=== PATIENT | male | born 1960 | race Caucasian/White ===

== ENCOUNTER 2016-11-01 08:28 | Emergency (ER) | payer MEDICARE, MEDICAID ==
[~2016-11-01 08:28] MED LIST: /MOM400 PO; AMIT25TA PO; ANEX7.5T PO; ASPI81TA85 PO; ATEN50TA2 PO; BACL-67 PO; BACL10TA2 PO; BISAC5TA PO; CELE20TA PO; CITA20TA4 PO; COLA100C PO; DOCU10ELUD PO; DULC10SU9 PR; FLOM5CAP PO; HYDROCODONE PO; LOSA100T36 PO; LOSA50TA20 PO; METH-29 OR; NITR0.4D6 TD; PERC5TAB6 PO; TYLE325T5 PO; VITA10002 PO
[2016-11-01] MEDS ORDERED: KETOROLAC 30 MG/ML VIAL (J1885) As Ordered ONE (09:13)
[2016-11-01 09:31] LABS: BASO % 0.2 % (0.0-1.0); EOS # 0.1 K/mm3 (0.0-0.50); EOS % 1.8 % (0.0-3.0); LARGE UNSTAINED CELL # 0.1 K/mm3 (0.0-0.4); LARGE UNSTAINED CELL % 1.1 % (0.0-4.0); LYMPH # 1.4 K/mm3 (1.5-4.5); LYMPH % 22.2 % (24.0-44.0); MEAN CORPUSCULAR HEMOGLOBIN 33.4 pg (27.0-33.0); MEAN CORPUSCULAR HGB CONC 34.8 g/dl (32.0-36.5); MEAN CORPUSCULAR VOLUME 95.8 fl (80.0-96.0); MONO # 0.3 K/mm3 (0.0-0.8); MONO % 5.4 % (0.0-5.0); NEUTROPHILS # 4.3 K/mm3 (1.8-7.7); NEUTROPHILS % 69.2 % (36.0-66.0); PLATELET COUNT, AUTOMATED 240 k/mm3 (150-450); RED CELL DISTRIBUTION WIDTH 11.9 % (11.5-14.5); WHITE BLOOD COUNT 6.2 K/mm3 (4.0-10.0)
[2016-11-01 09:41] LABS: ALBUMIN 3.7 GM/DL (3.2-5.2); ALBUMIN/GLOBULIN RATIO 1.03 (1.00-1.93); ALKALINE PHOSPHATASE 80 U/L (45-117); ALT/SGPT 45 U/L (12-78); ANION GAP 11 MEQ/L (8-16); AST/SGOT 52 U/L (15-37); BILIRUBIN,DIRECT 0.3 MG/DL (0.0-0.2); BLOOD UREA NITROGEN 9 MG/DL (7-18); CALCIUM LEVEL 8.4 MG/DL (8.5-10.1); CARBON DIOXIDE LEVEL 25 MEQ/L (21-32); CHLORIDE LEVEL 102 MEQ/L (98-107); CREATININE FOR GFR 0.93 MG/DL (0.70-1.30); GLOMERULAR FILTRATION RATE > 60.0 (>56); GLUCOSE, FASTING 116 MG/DL (70-105); POTASSIUM SERUM 3.8 MEQ/L (3.5-5.1); SODIUM LEVEL 138 MEQ/L (136-145); TOTAL PROTEIN 7.3 GM/DL (6.4-8.2)
--- NOTE | 2016-11-01 09:51 | REP ---
ACUTE ABDOMINAL SERIES: 11/01/2016. Comparison CT abdomen and pelvis 12/13/2015, chest x-ray 05/11/2015, 04/21/2015. Clinical history: Abdominal pain. PA chest. Lungs are well inflated. There is no infiltrate, effusion, atelectasis or mass. Heart, mediastinal and hilar contours are normal. Airway intact. There are minor degenerative changes in the shoulders and spine. Flat upright abdomen. There are right upper quadrant clips from prior cholecystectomy. The gas pattern is nonspecific with scattered gas in small bowel loops without dilatation or air-fluid levels. Stool and gas scattered in the colon without distension. There are degenerative changes in the lumbar spine proximally and distally without destructive lesions. Pelvic phleboliths are noted without definite stones over the renal fossae or expected course of the ureters. There are degenerative changes in the hips. Impression: 1. Nonspecific gas pattern without obstruction, mass, free air or abnormal calcifications over the renal fossae. 2. Right upper quadrant clips from prior cholecystectomy, degenerative changes in the spine and hips and a negative PA chest. Signed by Chi Rai MD 11/01/2016 10:03 A
[2016-11-01] MEDS ORDERED: GASTROGRAFIN SOLUTION 30ML (Q9963) As Ordered ONE (10:34)
[2016-11-01] MEDS ORDERED: ISOVUE-370 76% 100ML VIAL (Q9967) As Ordered ONE (11:17)
--- NOTE | 2016-11-01 13:34 | REP ---
CT ABDOMEN AND PELVIS WITH IV AND ORAL CONTRAST, 11/01/2016: INDICATION: Possible diverticulitis. Comparison made with CT abdomen and pelvis 12/13/2015 performed at [facility]. TECHNIQUE: After drinking two cups of oral contrast each containing 10 mL Gastrografin in 290 mL water, 100 mL Isovue 370 mg per/mL was subsequently injected intravenously. FINDINGS: Small amount of atelectasis and/or scarring present in lung bases bilaterally. There is mild diffuse fatty infiltration of liver. Spleen and pancreas are unremarkable. There has been a prior cholecystectomy. The stomach is unremarkable. In the region of the duodenal C loop and/or duodenal bulb there is mild mural thickening and stranding in the adjacent mesentery, to the right of midline and inferior to the gallbladder fossa. There has been prior cholecystectomy. The small bowel is without obstruction. The terminal ileum is normal. The appendix is surgically absent. Segmental area of narrowing is present within the mid to distal ascending colon of 5.8 cm in length. There is also residual polypoid fecal material seen just proximal to this area of narrowing in the ascending colon. These findings are worrisome for a fixed lesion. Mild narrowing within the splenic flexure is most compatible with under distension/spasm. Adrenal glands are normal. Kidneys are without hydronephrosis bilaterally. Abdominal aorta is of normal course and caliber. There are a few small nonspecific retroperitoneal nodes. There are a few small nonspecific robbi hepatis nodes, all stable. Bladder is normal. Prostate is not enlarged. There is no free air or ascites. IMPRESSION: 1. Mural thickening and mesenteric inflammation in the region of the duodenal C loop and inferior to the gallbladder fossa. Differential diagnosis includes duodenitis, interval scarring when compared with prior study. 2. Concern for area of fixed narrowing within the mid to distal ascending colon of 5.8 cm length. Also there does appear to be inspissated fecal material proximal to this area of narrowing also raising concern for fixed lesion. Recommend colonoscopy. 3. Mild diffuse fatty infiltration of liver. Case discussed with Dr. Sommers in ED on 11/01/16 at 1 pm. [facility]
--- NOTE | 2016-11-01 15:20 | EDDOCDS ---
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 Aspirin was not taken prior to arrival. Adult Sepsis Screening: The patient does not have new or worsening altered mentation. Patient's respiratory rate is less than 22. Systolic blood pressure is greater than 100. Patient has a qSOFA score of 0- Negative Sepsis Screen. Suicide/Homicide risk assessment- the patient denies having any suicidal and/or homicidal ideations and does not present with any other emotional, behavioral or mental health complaints. 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 Transition of care: patient was not received from another setting of care. 08:34 Method Of Arrival: Walkin/Carried/Asstd mlb1 08:34 Acuity: TAPAN Level 2 mlb1 Triage Assessment: 08:42 General: Appears in no apparent distress, Behavior is appropriate for age, cooperative. mlb1 Pain: Location: right breast and left breast Pain currently is 7 out of 10 on a pain scale. Pt Declines HIV testing. 15:19 Cardiovascular: Chest pain is described as mild, radiates Does not radiate. episodes bcj are intermittent began 1 hour prior to arrival. Historical: - Allergies: no known allergies; - Home Meds: 1. losartan 50 mg oral tab 1 tab once daily (Last dose: 11/01/2016 06:00) 2. atenolol 50 mg Oral tab once daily (Last dose: 11/01/2016 06:00) 3. baclofen 20 mg Oral tab daily (Last dose: 10/31/2016 11:00) 4. Citalopram 30 mg Oral once daily (Last dose: 11/01/2016 06:00) 5. 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 - Social history: Smoking status: Patient states was never smoker of tobacco. No barriers to communication noted, The patient speaks fluent Sami, Speaks appropriately for age. - Family history: Not pertinent. - : The pt / caregiver states he / she is not on anticoagulants. Home medication list is obtained from the patient. - Hospitalizations: : No recent hospitalization is reported. - Exposure Risk Screening:: None identified. - Immunization history:: All immunizations up-to-date. - Social history:: the patient smokes cigarettes the patient drinks alcohol. Screenin:48 Screening information is obtained from the patient. Fall risk: No risks identified. ck1 Assistance ADL's: requires no assistance with activities of daily living. Abuse/DV Screen: The patient / caregiver reports he/she is: not in a situation that causes fear, pain or injury. Nutritional screening: No deficits noted. Advance Directives: Currently, there is a health care proxy, Yoon Brenner (). home support is adequate. Assessment: 08:48 General: Appears in no apparent distress, comfortable, Behavior is appropriate for age, ck1 cooperative. Pain: Location: chest Pain currently is 7 out of 10 on a pain scale. back. Neurological: Level of Consciousness is awake, alert, obeys commands, Oriented to person, place, time. Cardiovascular: Rhythm is sinus rhythm. Respiratory: Respiratory effort is unlabored, Respiratory pattern is regular, symmetrical, Reports shortness of breath. GI: Reports nausea. Derm: Skin is intact, is healthy with good turgor, Skin is pink, warm & dry. 09:45 General: Appears in no apparent distress, comfortable, Behavior is appropriate for age, ck1 cooperative. Pain: Location: chest Pain currently is 6 out of 10 on a pain scale. Neurological: Level of Consciousness is awake, alert, obeys commands, Oriented to person, place, time. Cardiovascular: Rhythm is sinus rhythm. Respiratory: Respiratory effort is unlabored, Respiratory pattern is regular, symmetrical. GI: No deficits noted. Derm: Skin is pink, warm & dry. 10:41 General: Patient is resting quietly on stretcher. Reports pain in upper abdomen and ck1 chest remain unchanged, 6/10. No acute distress noted at this time. Gastrografin provided per orders. Call light in reach, will continue to monitor patient. 11:00 General: report received from JENIFFER Niño to continue care. Pt resting on stretcher. NAD ttb noted. Awaiting CT.. 11:10 General: Appears in no apparent distress, comfortable, well nourished, well groomed, ttb Behavior is appropriate for age, cooperative, pleasant. Pain: Location: upper abd. 7/10 tender. Neurological: Level of Consciousness is awake, alert, Oriented to person, place, time, Speech is normal, left sided paralysis/weakness from previous injury. Cardiovascular: Heart tones S1 S2 present Rhythm is sinus rhythm No ectopy. Chest pain is denied. Respiratory: Airway is patent Respiratory effort is even, unlabored, Respiratory pattern is regular, symmetrical, Breath sounds are clear bilaterally. Reports shortness of breath for "a couple days" none now. Denies cough. GI: Bowel sounds present X 4 quads. Reports upper abdominal pain, nausea, Denies constipation, diarrhea, vomiting. Derm: Skin is normal. 12:00 Reassessment: Patient appears in no apparent distress at this time. pt taken to CT. NAD ttb noted. . 12:41 Reassessment: Patient appears in no apparent distress at this time. General: Appears in ttb no apparent distress, comfortable. Neurological: Level of Consciousness is awake, alert. Respiratory: Airway is patent Respiratory effort is even, unlabored. 13:30 Reassessment: Patient appears in no apparent distress at this time. pt continues to ttb rest on stretcher. at bedside. NAD noted. . 13:30 Cardiovascular: Chest pain is denied. Respiratory: Airway is patent Denies cough, ttb shortness of breath. 14:45 General: Appears in no apparent distress, comfortable, Behavior is pleasant, quiet, ttb in to speak with pt regarding imaging. IV started and labs sent. 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 Musculoskeletal: P+. Vital Signs: 08:43 Pulse 68; Resp 16; Pulse Ox 99% on R/A; Weight 87.09 kg (R); Height 5 ft. 10 in. mlb1 (177.80 cm) (R); Pain 7/10; 08:44 BP 193 / 103; Temp 96.6(TE); mlb1 08:44 BP 182 / 92 (auto/); ck1 08:44 Pulse 68 MON; Pulse Ox 99% ; ck1 08:59 BP 182 / 100 (auto/); ck1 08:59 Pulse 62 MON; Pulse Ox 96% ; ck1 09:14 BP 158 / 91 (auto/); ck1 09:14 Pulse 60 MON; Pulse Ox 96% ; ck1 10:07 Pain 6/10; ck1 10:10 BP 148 / 80 (auto/); ck1 10:10 Pulse 56 MON; Pulse Ox 98% ; ck1 11:08 Pulse 60 MON; Resp 18 S; Pulse Ox 100% on R/A; Pain 7/10; ttb 14:32 Temp 97.1; jlf 08:43 Body Mass Index 27.55 (87.09 kg, 177.80 cm) mlb1 Vitals: 15:19 Log In Time N/A - ambulance arrival. [facility] ED Course: 08:29 Patient visited by Sima Monterroso. mm15 08:29 Aashish Jane is Private Physician. mm15 08:29 Patient moved to Waiting mm15 08:34 Renay De Jesus,RN is Primary Nurse. mlb1 08:34 Patient visited by Pj Roy, JENIFFER. mlb1 08:34 Patient moved to 5 mlb1 08:35 Triage Initiated mlb1 08:46 EKG done. (by ED staff). Reviewed by Santo Sommers MD. jlf 08:47 Patient visited by Ericka Bhatia. nb2 08:47 Placed in gown. Bed in low position. Call light in reach. Side rails up X2. Cardiac nb2 monitor on. Pulse ox on. NIBP on. 08:48 Patient visited by Kristel Zarate PCA. jlf 08:48 The patient / caregiver is instructed regarding the plan of care and ED course. ck1 08:48 Inserted saline lock: 20 gauge in right antecubital area and blood collected. The ck1 patient tolerated the procedure well. 08:49 Patient visited by Kristel Zarate PCA. jlf 08:53 Santo Sommers MD is Attending Physician. pc 09:04 Patient visited by Santo Sommers MD. pc 09:12 CBC with Diff Sent. ck1 09:12 MED Profile Sent. ck1 09:12 Troponin Sent. ck1 09:12 CIP Sent. ck1 09:13 Lipase Sent. ck1 09:13 Liver Profile Sent. ck1 09:15 Patient visited by Renay De Jesus RN. ck1 09:46 Patient visited by Renay De Jesus RN. ck1 09:56 Abdomen, Flat\\E\\Upright,PA Chest Returned. EDMS 10:07 Patient visited by Renay De Jesus RN. ck1 10:19 [facility] Payment Agreement was scanned into [employer] and attached to record. mpb 10:40 Patient visited by Renay De Jesus RN. ck1 10:44 Abdomen, Flat\\E\\Upright,PA Chest Returned. EDMS 11:06 Patient visited by Bette Montes RN. ttb 11:39 Primary Nurse role handed off by Renay De Jesus RN ttb 11:39 Bette Montes RN is Primary Nurse. ttb 11:39 Patient visited by Bette Montes RN. ttb 12:15 Patient visited by Kristel Zarate PCA. jlf 12:40 Patient visited by Bette Montes RN. ttb 13:07 Patient visited by Kristel Zarate PCA. jlf 13:38 Patient visited by Kristel Zarate PCA. jlf 14:06 Patient visited by Kristel Zarate PCA. jlf 14:06 CT ABD & PELVIS: IV and Oral Contrast Returned. EDMS 14:32 Patient visited by Kristel Zarate PCA. jlf 14:48 Krunal Greene is Referral Physician. pc 14:48 Jt Daugherty MD is Referral Physician. pc 15:00 Patient moved to Family 1 mcp 15:07 Patient visited by Bette Montes RN. ttb 15:18 No procedures done that require assistance. bcj 15:19 Patient visited by Yasir Dodge RN. bcj Administered Medications: 09:16 Drug: ketorolac 30 mg [ketorolac 30 mg/mL (1 mL) injection solution (1 mL)] Route: IVP; ck1 Site: right antecubital; 10:07 Follow up: Pain 6/10 Adult; Response: No Adverse Reaction; No significant change. ck1 10:41 Drug: Diatrizoate Meglumine & Sodium 10 ml [diatrizoate meglumine and diat.sodium 66 ck1 %-10 % oral solution (10 mL)] Route: PO; 11:13 Drug: Diatrizoate Meglumine & Sodium 10 ml [diatrizoate meglumine and diat.sodium 66 ttb %-10 % oral solution (10 mL)] Route: PO; Order Results: Lab Order: CBC with Diff; SPEC'M 11/01/16 08:47 Test: WHITE BLOOD COUNT; Value: 6.2; Range: 4.0-10.0; Units: K/mm3; Status: F Test: RED BLOOD COUNT; Value: 4.35; Range: 4.30-6.10; Units: M/mm3; Status: F Test: HEMOGLOBIN; Value: 14.5; Range: 14.0-18.0; Units: g/dl; Status: F Test: HEMATOCRIT; Value: 41.7; Range: 42.0-52.0; Abnormal: Below low normal; Units: %; Status: F Test: MEAN CORPUSCULAR VOLUME; Value: 95.8; Range: 80.0-96.0; Units: fl; Status: F Test: MEAN CORPUSCULAR HEMOGLOBIN; Value: 33.4; Range: 27.0-33.0; Abnormal: Above high normal; Units: pg; Status: F Test: MEAN CORPUSCULAR HGB CONC; Value: 34.8; Range: 32.0-36.5; Units: g/dl; Status: F Test: RED CELL DISTRIBUTION WIDTH; Value: 11.9; Range: 11.5-14.5; Units: %; Status: F Test: PLATELET COUNT, AUTOMATED; Value: 240; Range: 150-450; Units: k/mm3; Status: F Test: NEUTROPHILS %; Value: 69.2; Range: 36.0-66.0; Abnormal: Above high normal; Units: %; Status: F Test: LYMPH %; Value: 22.2; Range: 24.0-44.0; Abnormal: Below low normal; Units: %; Status: F Test: MONO %; Value: 5.4; Range: 0.0-5.0; Abnormal: Above high normal; Units: %; Status: F Test: EOS %; Value: 1.8; Range: 0.0-3.0; Units: %; Status: F Test: BASO %; Value: 0.2; Range: 0.0-1.0; Units: %; Status: F Test: LARGE UNSTAINED CELL %; Value: 1.1; Range: 0.0-4.0; Units: %; Status: F Test: NEUTROPHILS #; Value: 4.3; Range: 1.8-7.7; Units: K/mm3; Status: F Test: LYMPH #; Value: 1.4; Range: 1.5-4.5; Abnormal: Below low normal; Units: K/mm3; Status: F Test: MONO #; Value: 0.3; Range: 0.0-0.8; Units: K/mm3; Status: F Test: EOS #; Value: 0.1; Range: 0.0-0.50; Units: K/mm3; Status: F Test: BASO #; Value: 0.0; Range: 0.0-0.2; Units: K/mm3; Status: F Test: LARGE UNSTAINED CELL #; Value: 0.1; Range: 0.0-0.4; Units: K/mm3; Status: F Lab Order: [facility] Profile; SPEC'M 11/01/16 08:47 Test: GLUCOSE, FASTING; Value: 116; Range: 70-105; Abnormal: Above high normal; Units: MG/DL; Status: F Test: BLOOD UREA NITROGEN; Value: 9; Range: 7-18; Units: MG/DL; Status: F Test: CREATININE FOR GFR; Value: 0.93; Range: 0.70-1.30; Units: MG/DL; Status: F Test: GLOMERULAR FILTRATION RATE; Value: > 60.0; Range: >56; Status: F Test: SODIUM LEVEL; Value: 138; Range: 136-145; Units: MEQ/L; Status: F Test: POTASSIUM SERUM; Value: 3.8; Range: 3.5-5.1; Units: MEQ/L; Status: F Test: CHLORIDE LEVEL; Value: 102; Range: 98-107; Units: MEQ/L; Status: F Test: CARBON DIOXIDE LEVEL; Value: 25; Range: 21-32; Units: MEQ/L; Status: F Test: ANION GAP; Value: 11; Range: 8-16; Units: MEQ/L; Status: F Test: CALCIUM LEVEL; Value: 8.4; Range: 8.5-10.1; Abnormal: Below low normal; Units: MG/DL; Status: F Test Note: ; Units are mL/min/1.73 m2 Chronic Kidney Disease Staging per NKF: Stage I & II GFR >=60 Normal to Mildly Decreased Stage III GFR 30-59 Moderately Decreased Stage IV GFR 15-29 Severely Decreased Stage V GFR <15 Very Little GFR Left ESRD GFR <15 on [employer] Lab Order: Liver Profile; 11/01/16 08:47 Test: AST/SGOT; Value: 52; Range: 15-37; Abnormal: Above high normal; Units: U/L; Status: F Test: ALT/SGPT; Value: 45; Range: 12-78; Units: U/L; Status: F Test: ALKALINE PHOSPHATASE; Value: 80; Range: 45-117; Units: U/L; Status: F Test: BILIRUBIN,TOTAL; Value: 2.0; Range: 0.2-1.0; Abnormal: Above high normal; Units: MG/DL; Status: F Test: BILIRUBIN,DIRECT; Value: 0.3; Range: 0.0-0.2; Abnormal: Above high normal; Units: MG/DL; Status: F Test: TOTAL PROTEIN; Value: 7.3; Range: 6.4-8.2; Units: GM/DL; Status: F Test: ALBUMIN; Value: 3.7; Range: 3.2-5.2; Units: GM/DL; Status: F Test: ALBUMIN/GLOBULIN RATIO; Value: 1.03; Range: 1.00-1.93; Status: F Lab Order: Lipase; 11/01/16 08:47 Test: LIPASE; Value: 454; Range: 73-393; Abnormal: Above high normal; Units: U/L; Status: F Lab Order: CIP; 11/01/16 08:47 Test: CPK CREATINE PHOSPHOKINASE; Value: 139; Range: 39-308; Units: U/L; Status: F Test: CK-MB VALUE MASS; Value: 2.3; Range: 0.0-3.6; Units: NG/ML; Status: F Test: MB/CK RELATIVE INDEX; Value: 1.65; Range: < OR =4; Status: F Test Note: ; DIAGNOSIS CRITERIA MMB ng/ml Relative Index (RI) NON-AMI < or = 5 N/A [place]ONE > 5 < or = 4 AMI > 5 > 4 Lab Order: Troponin; SPEC'M 11/01/16 08:47 Test: TROPONIN I; Value: < 0.02; Range: < 0.10; Units: NG/ML; Status: F Test Note: ; Troponin I Reference Interval for [place] LOCI: 99th Percentile= 0.00-0.045 ng/ml Risk Stratification: <= 0.10 ng/ml Decreased Risk for Adverse Clinical Events. 0.10-1.50 ng/ml Increased Risk for Adverse Clinical Events. Evaluation of additional criterion and/or repeat testing in 2-6 hours is suggested to rule out myocardial damage. >= 1.50 ng/ml Indicative of Myocardial Injury. Radiology Order: Abdomen, Flat\\E\\Upright,PA Chest Test: Abdomen, Flat\\E\\Upright,PA Chest REASON FOR EXAMINATION: Abdomen Pain; ACUTE ABDOMINAL SERIES: 11/01/2016.; ; Comparison CT abdomen and pelvis 12/13/2015, chest x-ray 05/11/2015, 04/21/2015.; ; Clinical history: Abdominal pain.; ; PA chest. Lungs are well inflated. There is no infiltrate, effusion,; atelectasis or mass. Heart, mediastinal and hilar contours are normal. Airway; intact. There are minor degenerative changes in the shoulders and spine.; ; Flat upright abdomen. There are right upper quadrant clips from prior; cholecystectomy. The gas pattern is nonspecific with scattered gas in small; bowel loops without dilatation or air-fluid levels. Stool and gas scattered in; the colon without distension. There are degenerative changes in the lumbar spine; proximally and distally without destructive lesions. Pelvic phleboliths are; noted without definite stones over the renal fossae or expected course of the; ureters. There are degenerative changes in the hips.; ; Impression:; ; 1. Nonspecific gas pattern without obstruction, mass, free air or abnormal; calcifications over the renal fossae.; ; 2. Right upper quadrant clips from prior cholecystectomy, degenerative changes; in the spine and hips and a negative PA chest.; ; ; Signed by; Chi Rai MD 11/01/2016 10:03 A; Radiology Order: CT ABD & PELVIS: IV and Oral Contrast Test: CT ABD & PELVIS: IV and Oral Contrast REASON FOR EXAMINATION: Diverticulitis; ; CT ABDOMEN AND PELVIS WITH IV AND ORAL CONTRAST, 11/01/2016:; ; INDICATION: Possible diverticulitis.; ; Comparison made with CT abdomen and pelvis 12/13/2015 performed at [facility].; ; TECHNIQUE: After drinking two cups of oral contrast each containing 10 mL; Gastrografin in 290 mL water, 100 mL Isovue 370 mg per/mL was subsequently; injected intravenously.; ; FINDINGS:; Small amount of atelectasis and/or scarring present in lung bases bilaterally.; ; There is mild diffuse fatty infiltration of liver. Spleen and pancreas are; unremarkable. There has been a prior cholecystectomy. The stomach is; unremarkable. In the region of the duodenal C loop and/or duodenal bulb there is; mild mural thickening and stranding in the adjacent mesentery, to the right of; midline and inferior to the gallbladder fossa. There has been prior; cholecystectomy. The small bowel is without obstruction. The terminal ileum is; normal. The appendix is surgically absent. Segmental area of narrowing is; present within the mid to distal ascending colon of 5.8 cm in length. There is; also residual polypoid fecal material seen just proximal to this area of; narrowing in the ascending colon. These findings are worrisome for a fixed; lesion. Mild narrowing within the splenic flexure is most compatible with under; distension/spasm. Adrenal glands are normal. Kidneys are without hydronephrosis; bilaterally. Abdominal aorta is of normal course and caliber. There are a few; small nonspecific retroperitoneal nodes. There are a few small nonspecific robbi; hepatis nodes, all stable.; ; Bladder is normal. Prostate is not enlarged. There is no free air or ascites.; ; ; IMPRESSION:; 1. Mural thickening and mesenteric inflammation in the region of the duodenal C; loop and inferior to the gallbladder fossa. Differential diagnosis includes; duodenitis, interval scarring when compared with prior study.; 2. Concern for area of fixed narrowing within the mid to distal ascending colon; of 5.8 cm diameter. Also there does appear to be inspissated fecal material; proximal to this area of narrowing also raising concern for fixed lesion.; 3. Mild diffuse fatty infiltration of liver.; ; ; ; Unreviewed; Outcome: 14:48 Discharge ordered by Provider. pc 15:18 Discharge Assessment: patient administered narcotics -. bcj 15:18 Discharge Assessment: patient administered narcotics - no. The following High Risk [facility] Discharge criteria are identified: None. Discharged to home ambulatory. Condition: stable. Discharge instructions given to patient, Instructed on discharge instructions, follow up and referral plans. medication usage, Prescriptions given X 1. No special radiology studies were completed. Property :Personal belongings accompany Pt. 15:19 Patient left the ED. [facility] Signatures: Dispatcher [employer] EDMS Santo Sommers MD MD pc Johnson, Bruce RN RN Estela Victor RN RN mcp Barney, Michael B, RN RN [facility] Renay De Jesus RN RN ck1 Bette Montes RN RN ttSima Mcmahon mm15 Kristel Zarate, DARLYN CUSTODIAL SUPERVISOR yamelf Pj Parr, Sung Reg mpb Ericka Bhatia2 Corrections: (The following items were deleted from the chart) 08:43 08:34 Presenting complaint: Patient states: Upper abdominal pain, muscle cramps in arms mlb1 and legs "haven't fell right" began two days ago [facility] 08:43 08:34 Acuity: TAPAN Level 3 [place] [id number] : 08:41 Home Meds: losartan 50 mg oral tab 1 tab once daily; [facility] ck1 09: 08:41 Home Meds: atenolol 50 mg oral tab once daily; [facility] ck1 : 08:41 Home Meds: baclofen 20 mg Oral tab daily; [facility] ck1 : 08:41 Home Meds: Citalopram 30 mg Oral once daily; [facility] ck1 : 08:41 Home Meds: amitriptyline 50 mg Oral tab 1 tab once daily; [facility] ck 09:20 08:41 PSHx: ACDFI; [address] MTDD
--- NOTE | 2016-11-01 15:20 | EDDOCDS ---
Physician Documentation [facility] Name: Joao Brenner Age: 56 yrs Sex: Male : 1960 Arrival Date: 11/01/2016 Time: 08:28 Bed Family 1 Private MD: Aashish Jane Disposition: 11/01 14:19 Critical Care: Critical care not applicable. pc Disposition: 11/01/16 14:48 Discharged to Home/Self Care. 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 - Condition is Stable. - Discharge Instructions: Colon Mass, Adult, Duodenitis. - Prescriptions for Protonix 40 mg Oral Tablet - take 1 tablet by ORAL route once daily; 30 tablet. Miralax 17 gram/dose - take 17 gram by ORAL route once daily As needed dilute in 8 ounces of water or juice; 1 bottle. - Medication Reconciliation, Local Pharmacy Hours form. - Follow up: Krunal Greene; When: Call to arrange an appointment; Reason: Further diagnostic work-up, Continuance of care. Follow up: Jt Daugherty MD; When: Call to arrange an appointment; Reason: To establish care. - Problem is new. - Symptoms have improved. HPI: 09:13 This 56 yrs old Male presents to ER via Walkin/Carried/Asstd with complaints pc of Abdominal Pain. 09:13 The history is obtained from the patient. The patient presents with abdominal pain, in pc the upper abdomen. The symptoms began gradually 8 days ago, and became worse 2 days ago. Symptoms are ongoing and are constant. 09:15 At its worst, the symptoms were a 7 out of 10. In the emergency department, the pc symptoms are a 7 out of 10. The pain is described as aching. The is primarily located right upper quadrant and left upper quadrant. It radiates to the lumbar area. The pain was associated with nausea. The symptoms are aggravated by nothing. are alleviated by nothing. Risk factors for AAA: hypertension, smoking, Risk factors for CAD: family history of CAD, history of high cholesterol, history of hypertension, smoking. The patient has experienced similar episodes in the past, several times. The patient has been recently seen by their primary care provider, for a routine, regularly scheduled appointment. He has chronic opiate-induced constipation. He has recurrent upper abdominal pain for which he is scheduled for a stress test in 3 weeks. Historical: - Allergies: no known allergies; - Home Meds: 1. losartan 50 mg oral tab 1 tab once daily (Last dose: 11/01/2016 06:00) 2. atenolol 50 mg Oral tab once daily (Last dose: 11/01/2016 06:00) 3. baclofen 20 mg Oral tab daily (Last dose: 10/31/2016 11:00) 4. Citalopram 30 mg Oral once daily (Last dose: 11/01/2016 06:00) 5. 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 - Social history: Smoking status: Patient states was never smoker of tobacco. No barriers to communication noted, The patient speaks fluent [place], Speaks appropriately for age. - Family history: Not pertinent. - : The pt / caregiver states he / she is not on anticoagulants. Home medication list is obtained from the patient. - Hospitalizations: : No recent hospitalization is reported. - Exposure Risk Screening:: None identified. - Immunization history:: All immunizations up-to-date. - Social history:: the patient smokes cigarettes the patient drinks alcohol. ROS: 09:20 All systems are negative except if listed. The constitutional, cardiovascular, pc respiratory and neurological components are also addressed in the HPI. Exam: 09:20 General Appearance: alert, no acute distress. pc 09:20 ENT: ear, nose and throat normal, pharynx normal. 09:20 Neck: The exam reveals no acute abnormalities. ROM is normal and painless. No nuchal rigidity is noted.. 09:20 Respiratory: no respiratory distress, normal breath sounds, chest non-tender. 09:20 Cardiovascular: regular pulse rate, regular heart rhythm, normal heart sounds, equal and full pulses bilaterally. 09:20 Abdomen: soft, mild tenderness in all quadrants, without rebound, voluntary guarding is elicited in all quadrants. 09:20 Back: normal inspection. 09:20 Skin: skin color is normal, warm, dry. 09:20 Extremities: The extremities have a grossly normal appearance. Vital Signs: 08:43 Pulse 68; Resp 16; Pulse Ox 99% on R/A; Weight 87.09 kg / 192 lbs (R); Height 5 ft. 10 mlb1 in. (177.80 cm) (R); Pain 7/10; 08:44 BP 193 / 103; Temp 96.6(TE); mlb1 08:44 BP 182 / 92 (auto/); ck1 08:44 Pulse 68 MON; Pulse Ox 99% ; ck1 08:59 BP 182 / 100 (auto/); ck1 08:59 Pulse 62 MON; Pulse Ox 96% ; ck1 09:14 BP 158 / 91 (auto/); ck1 09:14 Pulse 60 MON; Pulse Ox 96% ; ck1 10:07 Pain 6/10; ck1 10:10 BP 148 / 80 (auto/); ck1 10:10 Pulse 56 MON; Pulse Ox 98% ; ck1 11:08 Pulse 60 MON; Resp 18 S; Pulse Ox 100% on R/A; Pain 7/10; ttb 14:32 Temp 97.1; jlf 08:43 Body Mass Index 27.55 (87.09 kg, 177.80 cm) mlb1 MDM: 08:44 ECG WITH READING ER PHYS+CARDIAG ordered. EDMS 09:01 Data reviewed: The patient's [facility] records were accessed, reference # [id number]. pc 09:11 IV Saline Lock ordered. pc 09:11 ketorolac 30 mg IVP once ordered. pc 09:12 Abdomen, Flat\E\Upright,PA Chest Ordered. EDMS 09:12 CBC with Diff Ordered. EDMS 09:12 MED Profile Ordered. EDMS 09:12 Liver Profile Ordered. EDMS 09:12 Lipase Ordered. EDMS 09:12 CIP Ordered. EDMS 09:12 Troponin Ordered. EDMS 09:20 Differential diagnosis: AAA, acute coronary syndrome, cholecystitis, gastritis, pc non-specific abd pain, pancreatitis, perforated viscous. Plan: labs, EKG, imaging, analgesia. Test interpretation: EKG. 09:43 CBC with Diff Reviewed. pc 09:43 MED Profile Reviewed. pc 09:43 Lipase Reviewed. pc 09:43 Troponin Reviewed. pc 09:44 Liver Profile Reviewed. pc 09:59 MED Profile Reviewed. pc 09:59 Liver Profile Reviewed. pc 09:59 Lipase Reviewed. pc 09:59 CIP Reviewed. pc 09:59 Troponin Reviewed. pc 09:59 Abdomen, Flat\E\Upright,PA Chest Reviewed. pc 10:17 CT ABD & PELVIS: IV and Oral Contrast Ordered. EDMS 10:18 Financial registration complete. mpb 10:19 [facility] Payment Agreement was scanned into [employer] and attached to record. mpb 10:41 Diatrizoate Meglumine & Sodium Liquid 10 ml PO once; mix in 290cc of water. First at ck1 1045, second at 1115 ordered. 11:13 Diatrizoate Meglumine & Sodium Liquid 10 ml PO once; mix in 290cc of water ordered. ttb 14:14 Test interpretation: LAB - all labs as ordered have been reviewed, interpreted and pc considered in the overall management of the clinical presentation; X-RAY - interpreted by Radiologist and personally reviewed, 3-view abdomen series; no acute disease, interpreted by Radiologist and personally reviewed, discussed with Radiologist, Abdomen/Pelvis CT; duodenitis; 5.8cm narrowing in mid to distal ascending colon with fecal plug proximally, concerning for malignancy. 14:19 The patient has been re-examined and re-evaluated. The patient's symptoms have mildly pc improved after treatment. Physician consultation: Dr. Krunal Greene was contacted at 14:19, regarding patient's condition, and he advises discharge home on Miralax and he will arrange for him to be seen urgently for colonoscopy . Disposition: The historical points, examination findings, and any diagnostic results supporting the provided diagnosis, were discussed with the patient or legal guardian. The need for outpatient follow up with the provider listed on their discharge instructions was discussed. They were encouraged to return to [facility], or the nearest ED, if symptoms worsen/persist, or for any other questions/concerns. 14:46 Physician consultation: Dr. Jt Daugherty MD was contacted at 14:47, regarding pc patient's condition, and will see patient in office. EC:20 Rate is 64 beats/min. Rhythm is regular, Normal Sinus Rhythm. QRS [place] is Normal. [place] pc interval is normal. QRS interval is normal. QT interval is normal. Q waves are Old in lead III. T waves are Normal. ST Segment is elevated in leads I, aVL, V2, V3, V4, V5, V6, <1mm. Clinical impression: Normal Sinus Rhythm, ST-T changes consistent with early repolarization., and Inferior [place] - age indeterminate. No change from previous ECG in Feb, 2015. Administered Medications: 09:16 Drug: ketorolac 30 mg [ketorolac 30 mg/mL (1 mL) injection solution (1 mL)] Route: IVP; ck1 Site: right antecubital; 10:07 Follow up: Pain 03/24 Adult; Response: No Adverse Reaction; No significant change. ck1 10:41 Drug: Diatrizoate Meglumine & Sodium 10 ml [diatrizoate meglumine and diat.sodium 66 ck1 %-10 % oral solution (10 mL)] Route: PO; 11:13 Drug: Diatrizoate Meglumine & Sodium 10 ml [diatrizoate meglumine and diat.sodium 66 ttb %-10 % oral solution (10 mL)] Route: PO; Signatures: Dispatcher [employer] EDMS Santo Sommers MD MD pc Johnson, Bruce RN RN Pj Chatman RN RN [facility] Renay De Jesus RN RN ck1 Bette Montes RN RN ttb Pj Parr Reg Reg mpb The chart was reviewed and I authenticate all verbal orders and agree with the evaluation and treatment provided.Corrections: (The following items were deleted from the chart) : 08:41 Home Meds: losartan 50 mg oral tab 1 tab once daily; [facility] 08:41 Home Meds: atenolol 50 mg oral tab once daily; [facility] 08:41 Home Meds: baclofen 20 mg Oral tab daily; [facility] 08:41 Home Meds: Citalopram 30 mg Oral once daily; [facility] 08:41 Home Meds: amitriptyline 50 mg Oral tab 1 tab once daily; [facility] 08:41 PSHx: ACDFI; [address] Attachments: 10:19 [facility] Payment Agreement mpb MTDD
--- NOTE | 2016-11-02 08:21 | ECGEPIP ---
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
--- NOTE | 2016-11-03 16:20 | EDDOCDS ---
Physician Documentation [facility] Name: Joao Brenner Age: 56 yrs Sex: Male : 1960 Arrival Date: 11/01/2016 Time: 08:28 Bed Family 1 Private MD: Aashish Jane Disposition: 11/01 14:19 Critical Care: Critical care not applicable. pc Disposition: 11/01/16 14:48 Discharged to Home/Self Care. 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 - Condition is Stable. - Discharge Instructions: Colon Mass, Adult, Duodenitis. - Prescriptions for Protonix 40 mg Oral Tablet - take 1 tablet by ORAL route once daily; 30 tablet. Miralax 17 gram/dose - take 17 gram by ORAL route once daily As needed dilute in 8 ounces of water or juice; 1 bottle. - Medication Reconciliation, Local Pharmacy Hours form. - Follow up: Krunal Greene; When: Call to arrange an appointment; Reason: Further diagnostic work-up, Continuance of care. Follow up: Jt Daugherty MD; When: Call to arrange an appointment; Reason: To establish care. - Problem is new. - Symptoms have improved. HPI: 09:13 This 56 yrs old Male presents to ER via Walkin/Carried/Asstd with complaints pc of Abdominal Pain. 09:13 The history is obtained from the patient. The patient presents with abdominal pain, in pc the upper abdomen. The symptoms began gradually 8 days ago, and became worse 2 days ago. Symptoms are ongoing and are constant. 09:15 At its worst, the symptoms were a 7 out of 10. In the emergency department, the pc symptoms are a 7 out of 10. The pain is described as aching. The is primarily located right upper quadrant and left upper quadrant. It radiates to the lumbar area. The pain was associated with nausea. The symptoms are aggravated by nothing. are alleviated by nothing. Risk factors for AAA: hypertension, smoking, Risk factors for CAD: family history of CAD, history of high cholesterol, history of hypertension, smoking. The patient has experienced similar episodes in the past, several times. The patient has been recently seen by their primary care provider, for a routine, regularly scheduled appointment. He has chronic opiate-induced constipation. He has recurrent upper abdominal pain for which he is scheduled for a stress test in 3 weeks. Historical: - Allergies: no known allergies; - Home Meds: 1. losartan 50 mg oral tab 1 tab once daily (Last dose: 11/01/2016 06:00) 2. atenolol 50 mg Oral tab once daily (Last dose: 11/01/2016 06:00) 3. baclofen 20 mg Oral tab daily (Last dose: 10/31/2016 11:00) 4. Citalopram 30 mg Oral once daily (Last dose: 11/01/2016 06:00) 5. 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 - Social history: Smoking status: Patient states was never smoker of tobacco. No barriers to communication noted, The patient speaks fluent [place], Speaks appropriately for age. - Family history: Not pertinent. - : The pt / caregiver states he / she is not on anticoagulants. Home medication list is obtained from the patient. - Hospitalizations: : No recent hospitalization is reported. - Exposure Risk Screening:: None identified. - Immunization history:: All immunizations up-to-date. - Social history:: the patient smokes cigarettes the patient drinks alcohol. ROS: 09:20 All systems are negative except if listed. The constitutional, cardiovascular, pc respiratory and neurological components are also addressed in the HPI. Exam: 09:20 General Appearance: alert, no acute distress. pc 09:20 ENT: ear, nose and throat normal, pharynx normal. 09:20 Neck: The exam reveals no acute abnormalities. ROM is normal and painless. No nuchal rigidity is noted.. 09:20 Respiratory: no respiratory distress, normal breath sounds, chest non-tender. 09:20 Cardiovascular: regular pulse rate, regular heart rhythm, normal heart sounds, equal and full pulses bilaterally. 09:20 Abdomen: soft, mild tenderness in all quadrants, without rebound, voluntary guarding is elicited in all quadrants. 09:20 Back: normal inspection. 09:20 Skin: skin color is normal, warm, dry. 09:20 Extremities: The extremities have a grossly normal appearance. Vital Signs: 08:43 Pulse 68; Resp 16; Pulse Ox 99% on R/A; Weight 87.09 kg / 192 lbs (R); Height 5 ft. 10 mlb1 in. (177.80 cm) (R); Pain 7/10; 08:44 BP 193 / 103; Temp 96.6(TE); mlb1 08:44 BP 182 / 92 (auto/); ck1 08:44 Pulse 68 MON; Pulse Ox 99% ; ck1 08:59 BP 182 / 100 (auto/); ck1 08:59 Pulse 62 MON; Pulse Ox 96% ; ck1 09:14 BP 158 / 91 (auto/); ck1 09:14 Pulse 60 MON; Pulse Ox 96% ; ck1 10:07 Pain 6/10; ck1 10:10 BP 148 / 80 (auto/); ck1 10:10 Pulse 56 MON; Pulse Ox 98% ; ck1 11:08 Pulse 60 MON; Resp 18 S; Pulse Ox 100% on R/A; Pain 7/10; ttb 14:13 BP 182 / 105 (auto/); ttb 14:26 Pulse 62 MON; Resp 18; Pulse Ox 100% on R/A; Pain 3/10; ttb 14:32 Temp 97.1; jlf 08:43 Body Mass Index 27.55 (87.09 kg, 177.80 cm) mlb1 MDM: 08:44 ECG WITH READING ER PHYS+CARDIAG ordered. EDMS 09:01 Data reviewed: The patient's [facility] records were accessed, reference # [id number]. pc 09:11 IV Saline Lock ordered. pc 09:11 ketorolac 30 mg IVP once ordered. pc 09:12 Abdomen, Flat\E\Upright,PA Chest Ordered. EDMS 09:12 CBC with Diff Ordered. EDMS 09:12 MED Profile Ordered. EDMS 09:12 Liver Profile Ordered. EDMS 09:12 Lipase Ordered. EDMS 09:12 CIP Ordered. EDMS 09:12 Troponin Ordered. EDMS 09:20 Differential diagnosis: AAA, acute coronary syndrome, cholecystitis, gastritis, pc non-specific abd pain, pancreatitis, perforated viscous. Plan: labs, EKG, imaging, analgesia. Test interpretation: EKG. 09:43 CBC with Diff Reviewed. pc 09:43 MED Profile Reviewed. pc 09:43 Lipase Reviewed. pc 09:43 Troponin Reviewed. pc 09:44 Liver Profile Reviewed. pc 09:59 MED Profile Reviewed. pc 09:59 Liver Profile Reviewed. pc 09:59 Lipase Reviewed. pc 09:59 CIP Reviewed. pc 09:59 Troponin Reviewed. pc 09:59 Abdomen, Flat\E\Upright,PA Chest Reviewed. pc 10:17 CT ABD & PELVIS: IV and Oral Contrast Ordered. EDMS 10:18 Financial registration complete. mpb 10:19 [facility] Payment Agreement was scanned into [employer] and attached to record. mpb 10:41 Diatrizoate Meglumine & Sodium Liquid 10 ml PO once; mix in 290cc of water. First at ck1 1045, second at 1115 ordered. 11:13 Diatrizoate Meglumine & Sodium Liquid 10 ml PO once; mix in 290cc of water ordered. ttb 14:14 Test interpretation: LAB - all labs as ordered have been reviewed, interpreted and pc considered in the overall management of the clinical presentation; X-RAY - interpreted by Radiologist and personally reviewed, 3-view abdomen series; no acute disease, interpreted by Radiologist and personally reviewed, discussed with Radiologist, Abdomen/Pelvis CT; duodenitis; 5.8cm narrowing in mid to distal ascending colon with fecal plug proximally, concerning for malignancy. 14:19 The patient has been re-examined and re-evaluated. The patient's symptoms have mildly pc improved after treatment. Physician consultation: Dr. Krunal Greene was contacted at 14:19, regarding patient's condition, and he advises discharge home on Miralax and he will arrange for him to be seen urgently for colonoscopy . Disposition: The historical points, examination findings, and any diagnostic results supporting the provided diagnosis, were discussed with the patient or legal guardian. The need for outpatient follow up with the provider listed on their discharge instructions was discussed. They were encouraged to return to [facility], or the nearest ED, if symptoms worsen/persist, or for any other questions/concerns. 14:46 Physician consultation: Dr. Jt Daugherty MD was contacted at 14:47, regarding pc patient's condition, and will see patient in office. 11/02 10:41 ECG/EKG was scanned into [employer] and attached to record. gb EC/18 09:20 Rate is 64 beats/min. Rhythm is regular, Normal Sinus Rhythm. QRS [place] is Normal. [place] pc interval is normal. QRS interval is normal. QT interval is normal. Q waves are Old in lead III. T waves are Normal. ST Segment is elevated in leads I, aVL, V2, V3, V4, V5, V6, <1mm. Clinical impression: Normal Sinus Rhythm, ST-T changes consistent with early repolarization., and Inferior [place] - age indeterminate. No change from previous ECG in Feb, 2015. Administered Medications: 09:16 Drug: ketorolac 30 mg [ketorolac 30 mg/mL (1 mL) injection solution (1 mL)] Route: IVP; ck1 Site: right antecubital; 10:07 Follow up: Pain 03/24 Adult; Response: No Adverse Reaction; No significant change. ck1 10:41 Drug: Diatrizoate Meglumine & Sodium 10 ml [diatrizoate meglumine and diat.sodium 66 ck1 %-10 % oral solution (10 mL)] Route: PO; 11:13 Drug: Diatrizoate Meglumine & Sodium 10 ml [diatrizoate meglumine and diat.sodium 66 ttb %-10 % oral solution (10 mL)] Route: PO; Signatures: Dispatcher [employer] EDMS Santo Sommers MD MD pc Johnson, Bruce, Heather Payne RN, Pj Starkey RN RN mlb1 Renay De Jesus RN RN ck1 Bette Montes RN RN ttb Briggs, Michael, Reg Reg mpb The chart was reviewed and I authenticate all verbal orders and agree with the evaluation and treatment provided.Corrections: (The following items were deleted from the chart) 09:17 08:41 Home Meds: losartan 50 mg oral tab 1 tab once daily; [facility] : 08:41 Home Meds: atenolol 50 mg oral tab once daily; [facility] 08:41 Home Meds: baclofen 20 mg Oral tab daily; [facility] : 08:41 Home Meds: Citalopram 30 mg Oral once daily; [facility] 08:41 Home Meds: amitriptyline 50 mg Oral tab 1 tab once daily; [address] 08:41 PSHx: ACDFI; mlb1 pc Attachments: 10:19 [facility] Payment Agreement mpb 11/02 10:41 ECG/EKG gb Chart Complete MTDD
--- NOTE | 2016-11-03 16:20 | EDDOCDS ---
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 Aspirin was not taken prior to arrival. Adult Sepsis Screening: The patient does not have new or worsening altered mentation. Patient's respiratory rate is less than 22. Systolic blood pressure is greater than 100. Patient has a qSOFA score of 0- Negative Sepsis Screen. Suicide/Homicide risk assessment- the patient denies having any suicidal and/or homicidal ideations and does not present with any other emotional, behavioral or mental health complaints. Status: Patient is not a shared services manager or dependent. Transition of care: patient was not received from another setting of care. 08:34 Method Of Arrival: Walkin/Carried/Asstd mlb1 08:34 Acuity: TAPAN Level 2 mlb1 Triage Assessment: 08:42 General: Appears in no apparent distress, Behavior is appropriate for age, cooperative. mlb1 Pain: Location: right breast and left breast Pain currently is 7 out of 10 on a pain scale. Pt Declines HIV testing. 15:19 Cardiovascular: Chest pain is described as mild, radiates Does not radiate. episodes bcj are intermittent began 1 hour prior to arrival. Historical: - Allergies: no known allergies; - Home Meds: 1. losartan 50 mg oral tab 1 tab once daily (Last dose: 11/01/2016 06:00) 2. atenolol 50 mg Oral tab once daily (Last dose: 11/01/2016 06:00) 3. baclofen 20 mg Oral tab daily (Last dose: 10/31/2016 11:00) 4. Citalopram 30 mg Oral once daily (Last dose: 11/01/2016 06:00) 5. 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 - Social history: Smoking status: Patient states was never smoker of tobacco. No barriers to communication noted, The patient speaks fluent Kyrgyz, Speaks appropriately for age. - Family history: Not pertinent. - : The pt / caregiver states he / she is not on anticoagulants. Home medication list is obtained from the patient. - Hospitalizations: : No recent hospitalization is reported. - Exposure Risk Screening:: None identified. - Immunization history:: All immunizations up-to-date. - Social history:: the patient smokes cigarettes the patient drinks alcohol. Screenin:48 Screening information is obtained from the patient. Fall risk: No risks identified. ck1 Assistance ADL's: requires no assistance with activities of daily living. Abuse/DV Screen: The patient / caregiver reports he/she is: not in a situation that causes fear, pain or injury. Nutritional screening: No deficits noted. Advance Directives: Currently, there is a health care proxy, Yoon Cornejo (). home support is adequate. Assessment: 08:48 General: Appears in no apparent distress, comfortable, Behavior is appropriate for age, ck1 cooperative. Pain: Location: chest Pain currently is 7 out of 10 on a pain scale. back. Neurological: Level of Consciousness is awake, alert, obeys commands, Oriented to person, place, time. Cardiovascular: Rhythm is sinus rhythm. Respiratory: Respiratory effort is unlabored, Respiratory pattern is regular, symmetrical, Reports shortness of breath. GI: Reports nausea. Derm: Skin is intact, is healthy with good turgor, Skin is pink, warm & dry. 09:45 General: Appears in no apparent distress, comfortable, Behavior is appropriate for age, ck1 cooperative. Pain: Location: chest Pain currently is 6 out of 10 on a pain scale. Neurological: Level of Consciousness is awake, alert, obeys commands, Oriented to person, place, time. Cardiovascular: Rhythm is sinus rhythm. Respiratory: Respiratory effort is unlabored, Respiratory pattern is regular, symmetrical. GI: No deficits noted. Derm: Skin is pink, warm & dry. 10:41 General: Patient is resting quietly on stretcher. Reports pain in upper abdomen and ck1 chest remain unchanged, 6/10. No acute distress noted at this time. Gastrografin provided per orders. Call light in reach, will continue to monitor patient. 11:00 General: report received from JENIFFER Niño to continue care. Pt resting on stretcher. NAD ttb noted. Awaiting CT.. 11:10 General: Appears in no apparent distress, comfortable, well nourished, well groomed, ttb Behavior is appropriate for age, cooperative, pleasant. Pain: Location: upper abd. 7/10 tender. Neurological: Level of Consciousness is awake, alert, Oriented to person, place, time, Speech is normal, left sided paralysis/weakness from previous injury. Cardiovascular: Heart tones S1 S2 present Rhythm is sinus rhythm No ectopy. Chest pain is denied. Respiratory: Airway is patent Respiratory effort is even, unlabored, Respiratory pattern is regular, symmetrical, Breath sounds are clear bilaterally. Reports shortness of breath for "a couple days" none now. Denies cough. GI: Bowel sounds present X 4 quads. Reports upper abdominal pain, nausea, Denies constipation, diarrhea, vomiting. Derm: Skin is normal. 12:00 Reassessment: Patient appears in no apparent distress at this time. pt taken to CT. NAD ttb noted. . 12:41 Reassessment: Patient appears in no apparent distress at this time. General: Appears in ttb no apparent distress, comfortable. Neurological: Level of Consciousness is awake, alert. Respiratory: Airway is patent Respiratory effort is even, unlabored. 13:30 Reassessment: Patient appears in no apparent distress at this time. pt continues to ttb rest on stretcher. at bedside. NAD noted. . 13:30 Cardiovascular: Chest pain is denied. Respiratory: Airway is patent Denies cough, ttb shortness of breath. 14:30 Adult Sepsis Screening: The patient does not have new or worsening altered mentation. ttb Patient's respiratory rate is less than 22. Systolic blood pressure is greater than 100. Patient has a qSOFA score of 0- Negative Sepsis Screen. General: pt ready for DC at this time. . 15:00 General: Appears in no apparent distress, comfortable, Behavior is appropriate for age, ttb cooperative, pleasant. Pain: Location: upper abd, improved. Neurological: Level of Consciousness is awake, alert. Cardiovascular: Chest pain is denied. Respiratory: Airway is patent Denies cough, shortness of breath. Derm: Skin is normal. Vital Signs: 08:43 Pulse 68; Resp 16; Pulse Ox 99% on R/A; Weight 87.09 kg (R); Height 5 ft. 10 in. mlb1 (177.80 cm) (R); Pain 7/10; 08:44 BP 193 / 103; Temp 96.6(TE); mlb1 08:44 BP 182 / 92 (auto/); ck1 08:44 Pulse 68 MON; Pulse Ox 99% ; ck1 08:59 BP 182 / 100 (auto/); ck1 08:59 Pulse 62 MON; Pulse Ox 96% ; ck1 09:14 BP 158 / 91 (auto/); ck1 09:14 Pulse 60 MON; Pulse Ox 96% ; ck1 10:07 Pain 6/10; ck1 10:10 BP 148 / 80 (auto/); ck1 10:10 Pulse 56 MON; Pulse Ox 98% ; ck1 11:08 Pulse 60 MON; Resp 18 S; Pulse Ox 100% on R/A; Pain 7/10; ttb 14:13 BP 182 / 105 (auto/); ttb 14:26 Pulse 62 MON; Resp 18; Pulse Ox 100% on R/A; Pain 3/10; ttb 14:32 Temp 97.1; jlf 08:43 Body Mass Index 27.55 (87.09 kg, 177.80 cm) [facility] Vitals: 15:19 Log In Time N/A - ambulance arrival. [facility] ED Course: 08:29 Patient visited by Sima Monterroso. mm15 08:29 Aashish Jane is Private Physician. mm15 08:29 Patient moved to Waiting mm15 08:34 Renay De Jesus,RN is Primary Nurse. mlb1 08:34 Patient visited by Pj Roy, JENIFFER. mlb1 08:34 Patient moved to 5 mlb1 08:35 Triage Initiated mlb1 08:46 EKG done. (by ED staff). Reviewed by Santo Sommers MD. jlf 08:47 Patient visited by Ericka Bhatia. nb2 08:47 Placed in gown. Bed in low position. Call light in reach. Side rails up X2. Cardiac nb2 monitor on. Pulse ox on. NIBP on. 08:48 Patient visited by Kristel Zarate PCA. jlf 08:48 The patient / caregiver is instructed regarding the plan of care and ED course. ck1 08:48 Inserted saline lock: 20 gauge in right antecubital area and blood collected. The ck1 patient tolerated the procedure well. 08:49 Patient visited by Kristel Zarate PCA. jlf 08:53 Santo Sommers MD is Attending Physician. pc 09:04 Patient visited by Santo Sommers MD. pc 09:12 CBC with Diff Sent. ck1 09:12 MED Profile Sent. ck1 09:12 Troponin Sent. ck1 09:12 CIP Sent. ck1 09:13 Lipase Sent. ck1 09:13 Liver Profile Sent. ck1 09:15 Patient visited by Renay De Jesus RN. ck1 09:46 Patient visited by Renay De Jesus RN. ck1 09:56 Abdomen, Flat\\E\\Upright,PA Chest Returned. EDMS 10:07 Patient visited by Renay De Jesus RN. ck1 10:19 [facility] Payment Agreement was scanned into [employer] and attached to record. mpb 10:40 Patient visited by Renay De Jesus RN. ck1 10:44 Abdomen, Flat\\E\\Upright,PA Chest Returned. EDMS 11:06 Patient visited by Bette Montes RN. ttb 11:39 Primary Nurse role handed off by Renay De Jesus RN ttb 11:39 Bette Montes RN is Primary Nurse. ttb 11:39 Patient visited by Bette Montes RN. ttb 12:15 Patient visited by Kristel Zarate PCA. jlf 12:40 Patient visited by Bette Montes RN. ttb 13:07 Patient visited by Kristel Zarate PCA. jlf 13:38 Patient visited by Kristel Zarate PCA. jlf 14:06 Patient visited by Kristel Zarate PCA. jlf 14:06 CT ABD & PELVIS: IV and Oral Contrast Returned. EDMS 14:32 Patient visited by Kristel Zarate PCA. jlf 14:48 Krunal Greene is Referral Physician. pc 14:48 Jt Daugherty MD is Referral Physician. pc 15:00 Patient moved to Family 1 mcp 15:07 Patient visited by Bette Montes RN. ttb 15:18 No procedures done that require assistance. bcj 15:19 Patient visited by Yasir Dodge RN. bcj 11/02 09:00 EKG-ADULT Returned. EDMS 10:41 ECG/EKG was scanned into [employer] and attached to record. gb Administered Medications: 11/01 09:16 Drug: ketorolac 30 mg [ketorolac 30 mg/mL (1 mL) injection solution (1 mL)] Route: IVP; ck1 Site: right antecubital; 10:07 Follow up: Pain 03/24 Adult; Response: No Adverse Reaction; No significant change. ck1 10:41 Drug: Diatrizoate Meglumine & Sodium 10 ml [diatrizoate meglumine and diat.sodium 66 ck1 %-10 % oral solution (10 mL)] Route: PO; 11:13 Drug: Diatrizoate Meglumine & Sodium 10 ml [diatrizoate meglumine and diat.sodium 66 ttb %-10 % oral solution (10 mL)] Route: PO; Order Results: Lab Order: CBC with Diff; SPEC'M 11/01/16 08:47 Test: WHITE BLOOD COUNT; Value: 6.2; Range: 4.0-10.0; Units: K/mm3; Status: F Test: RED BLOOD COUNT; Value: 4.35; Range: 4.30-6.10; Units: M/mm3; Status: F Test: HEMOGLOBIN; Value: 14.5; Range: 14.0-18.0; Units: g/dl; Status: F Test: HEMATOCRIT; Value: 41.7; Range: 42.0-52.0; Abnormal: Below low normal; Units: %; Status: F Test: MEAN CORPUSCULAR VOLUME; Value: 95.8; Range: 80.0-96.0; Units: fl; Status: F Test: MEAN CORPUSCULAR HEMOGLOBIN; Value: 33.4; Range: 27.0-33.0; Abnormal: Above high normal; Units: pg; Status: F Test: MEAN CORPUSCULAR HGB CONC; Value: 34.8; Range: 32.0-36.5; Units: g/dl; Status: F Test: RED CELL DISTRIBUTION WIDTH; Value: 11.9; Range: 11.5-14.5; Units: %; Status: F Test: PLATELET COUNT, AUTOMATED; Value: 240; Range: 150-450; Units: k/mm3; Status: F Test: NEUTROPHILS %; Value: 69.2; Range: 36.0-66.0; Abnormal: Above high normal; Units: %; Status: F Test: LYMPH %; Value: 22.2; Range: 24.0-44.0; Abnormal: Below low normal; Units: %; Status: F Test: MONO %; Value: 5.4; Range: 0.0-5.0; Abnormal: Above high normal; Units: %; Status: F Test: EOS %; Value: 1.8; Range: 0.0-3.0; Units: %; Status: F Test: BASO %; Value: 0.2; Range: 0.0-1.0; Units: %; Status: F Test: LARGE UNSTAINED CELL %; Value: 1.1; Range: 0.0-4.0; Units: %; Status: F Test: NEUTROPHILS #; Value: 4.3; Range: 1.8-7.7; Units: K/mm3; Status: F Test: LYMPH #; Value: 1.4; Range: 1.5-4.5; Abnormal: Below low normal; Units: K/mm3; Status: F Test: MONO #; Value: 0.3; Range: 0.0-0.8; Units: K/mm3; Status: F Test: EOS #; Value: 0.1; Range: 0.0-0.50; Units: K/mm3; Status: F Test: BASO #; Value: 0.0; Range: 0.0-0.2; Units: K/mm3; Status: F Test: LARGE UNSTAINED CELL #; Value: 0.1; Range: 0.0-0.4; Units: K/mm3; Status: F Lab Order: MED Profile; SPEC'M 11/01/16 08:47 Test: GLUCOSE, FASTING; Value: 116; Range: 70-105; Abnormal: Above high normal; Units: MG/DL; Status: F Test: BLOOD UREA NITROGEN; Value: 9; Range: 7-18; Units: MG/DL; Status: F Test: CREATININE FOR GFR; Value: 0.93; Range: 0.70-1.30; Units: MG/DL; Status: F Test: GLOMERULAR FILTRATION RATE; Value: > 60.0; Range: >56; Status: F Test: SODIUM LEVEL; Value: 138; Range: 136-145; Units: MEQ/L; Status: F Test: POTASSIUM SERUM; Value: 3.8; Range: 3.5-5.1; Units: MEQ/L; Status: F Test: CHLORIDE LEVEL; Value: 102; Range: 98-107; Units: MEQ/L; Status: F Test: CARBON DIOXIDE LEVEL; Value: 25; Range: 21-32; Units: MEQ/L; Status: F Test: ANION GAP; Value: 11; Range: 8-16; Units: MEQ/L; Status: F Test: CALCIUM LEVEL; Value: 8.4; Range: 8.5-10.1; Abnormal: Below low normal; Units: MG/DL; Status: F Test Note: ; Units are mL/min/1.73 m2 Chronic Kidney Disease Staging per NKF: Stage I & II GFR >=60 Normal to Mildly Decreased Stage III GFR 30-59 Moderately Decreased Stage IV GFR 15-29 Severely Decreased Stage V GFR <15 Very Little GFR Left ESRD GFR <15 on TOOTH CUTTER Lab Order: Liver Profile; SPEC'M 11/01/16 08:47 Test: AST/SGOT; Value: 52; Range: 15-37; Abnormal: Above high normal; Units: U/L; Status: F Test: ALT/SGPT; Value: 45; Range: 12-78; Units: U/L; Status: F Test: ALKALINE PHOSPHATASE; Value: 80; Range: 45-117; Units: U/L; Status: F Test: BILIRUBIN,TOTAL; Value: 2.0; Range: 0.2-1.0; Abnormal: Above high normal; Units: MG/DL; Status: F Test: BILIRUBIN,DIRECT; Value: 0.3; Range: 0.0-0.2; Abnormal: Above high normal; Units: MG/DL; Status: F Test: TOTAL PROTEIN; Value: 7.3; Range: 6.4-8.2; Units: GM/DL; Status: F Test: ALBUMIN; Value: 3.7; Range: 3.2-5.2; Units: GM/DL; Status: F Test: ALBUMIN/GLOBULIN RATIO; Value: 1.03; Range: 1.00-1.93; Status: F Lab Order: Lipase; SPEC'M 11/01/16 08:47 Test: LIPASE; Value: 454; Range: 73-393; Abnormal: Above high normal; Units: U/L; Status: F Lab Order: CIP; SPEC'M 11/01/16 08:47 Test: CPK CREATINE PHOSPHOKINASE; Value: 139; Range: 39-308; Units: U/L; Status: F Test: CK-MB VALUE MASS; Value: 2.3; Range: 0.0-3.6; Units: NG/ML; Status: F Test: MB/CK RELATIVE INDEX; Value: 1.65; Range: < OR =4; Status: F Test Note: ; DIAGNOSIS CRITERIA MMB ng/ml Relative Index (RI) NON-AMI < or = 5 N/A BASURTO ZONE > 5 < or = 4 AMI > 5 > 4 Lab Order: Troponin; SPEC'M 11/01/16 08:47 Test: TROPONIN I; Value: < 0.02; Range: < 0.10; Units: NG/ML; Status: F Test Note: ; Troponin I Reference Interval for [employer] LOCI: 99th Percentile= 0.00-0.045 ng/ml Risk Stratification: <= 0.10 ng/ml Decreased Risk for Adverse Clinical Events. 0.10-1.50 ng/ml Increased Risk for Adverse Clinical Events. Evaluation of additional criterion and/or repeat testing in 2-6 hours is suggested to rule out myocardial damage. >= 1.50 ng/ml Indicative of Myocardial Injury. 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; : 1960 Requested By: Santo Soares; Order Number: [id number] Reading MD: Santo Sommers; Measurements; Intervals [place]; Rate: 64 P: 34; NC: 173 QRS: 12; QRSD: 98 T: 24; QT: 384; QTc: 397; Interpretive Statements; SINUS RHYTHM; BENIGN EARLY REPOLARTIZATION; NONSPECIFIC T WAVE ABNORMALITY; Electronically Signed On 11-02-2016 8:21:03 EST by Santo Sommers; Radiology Order: Abdomen, Flat\\E\\Upright,PA Chest Test: Abdomen, Flat\\E\\Upright,PA Chest REASON FOR EXAMINATION: Abdomen Pain; ACUTE ABDOMINAL SERIES: 11/01/2016.; ; Comparison CT abdomen and pelvis 12/13/2015, chest x-ray 05/11/2015, 04/21/2015.; ; Clinical history: Abdominal pain.; ; PA chest. Lungs are well inflated. There is no infiltrate, effusion,; atelectasis or mass. Heart, mediastinal and hilar contours are normal. Airway; intact. There are minor degenerative changes in the shoulders and spine.; ; Flat upright abdomen. There are right upper quadrant clips from prior; cholecystectomy. The gas pattern is nonspecific with scattered gas in small; bowel loops without dilatation or air-fluid levels. Stool and gas scattered in; the colon without distension. There are degenerative changes in the lumbar spine; proximally and distally without destructive lesions. Pelvic phleboliths are; noted without definite stones over the renal fossae or expected course of the; ureters. There are degenerative changes in the hips.; ; Impression:; ; 1. Nonspecific gas pattern without obstruction, mass, free air or abnormal; calcifications over the renal fossae.; ; 2. Right upper quadrant clips from prior cholecystectomy, degenerative changes; in the spine and hips and a negative PA chest.; ; ; Signed by; Chi Rai MD 11/01/2016 10:03 A; Radiology Order: CT ABD & PELVIS: IV and Oral Contrast Test: CT ABD & PELVIS: IV and Oral Contrast REASON FOR EXAMINATION: Diverticulitis; ; CT ABDOMEN AND PELVIS WITH IV AND ORAL CONTRAST, 11/01/2016:; ; INDICATION: Possible diverticulitis.; ; Comparison made with CT abdomen and pelvis 12/13/2015 performed at [facility].; ; TECHNIQUE: After drinking two cups of oral contrast each containing 10 mL; Gastrografin in 290 mL water, 100 mL Isovue 370 mg per/mL was subsequently; injected intravenously.; ; FINDINGS:; Small amount of atelectasis and/or scarring present in lung bases bilaterally.; ; There is mild diffuse fatty infiltration of liver. Spleen and pancreas are; unremarkable. There has been a prior cholecystectomy. The stomach is; unremarkable. In the region of the duodenal C loop and/or duodenal bulb there; is; mild mural thickening and stranding in the adjacent mesentery, to the right of; midline and inferior to the gallbladder fossa. There has been prior; cholecystectomy. The small bowel is without obstruction. The terminal ileum is; normal. The appendix is surgically absent.; ; Segmental area of narrowing is present within the mid to distal ascending colon; of 5.8 cm in length. There is; also residual polypoid fecal material seen just proximal to this area of; narrowing in the ascending colon. These findings are worrisome for a fixed; lesion. Mild narrowing within the splenic flexure is most compatible with under; distension/spasm. Adrenal glands are normal. Kidneys are without; hydronephrosis; bilaterally. Abdominal aorta is of normal course and caliber. There are a few; small nonspecific retroperitoneal nodes. There are a few small nonspecific; robbi; hepatis nodes, all stable.; ; Bladder is normal. Prostate is not enlarged. There is no free air or ascites.; ; ; IMPRESSION:; 1. Mural thickening and mesenteric inflammation in the region of the duodenal C; loop and inferior to the gallbladder fossa. Differential diagnosis includes; duodenitis, interval scarring when compared with prior study.; 2. Concern for area of fixed narrowing within the mid to distal ascending colon; of 5.8 cm length. Also there does appear to be inspissated fecal material; proximal to this area of narrowing also raising concern for fixed lesion.; Recommend colonoscopy.; 3. Mild diffuse fatty infiltration of liver.; ; Case discussed with Dr. Sommers in ED on 11/01/16 at 1 pm.; ; ; ; ; MTDD Outcome: 14:48 Discharge ordered by Provider. pc 15:18 Discharge Assessment: patient administered narcotics -. bcj 15:18 Discharge Assessment: patient administered narcotics - no. The following High Risk bcj Discharge criteria are identified: None. Discharged to home ambulatory. Condition: stable. Discharge instructions given to patient, Instructed on discharge instructions, follow up and referral plans. medication usage, Prescriptions given X 1. No special radiology studies were completed. Property :Personal belongings accompany Pt. 15:19 Patient left the ED. [facility] Signatures: Dispatcher [employer] EDMS Santo Sommers MD MD pc Johnson, Bruce, RN RN Estela Victor RN RN Heather Jansen, Reg Reg gb Kirill, Pj Raza RN RN mlb1 Renay De Jesus RN RN ck1 Bette Montes RN RN ttb Sima Monterroso mm15 Kristel Zarate, APPLICATION DEVELOPMENT SPECIALIST APPLICATION DEVELOPMENT SPECIALIST jlf Pj Parr, Reg Reg mpb Ericka Bhatia nb2 Corrections: (The following items were deleted from the chart) 08:43 08:34 Presenting complaint: Patient states: Upper abdominal pain, muscle cramps in arms ml and legs "haven't fell right" began two days ago [facility] 08:34 Acuity: TAPAN Level 3 [place] [id number] 09: 08:41 Home Meds: losartan 50 mg oral tab 1 tab once daily; [facility] ck1 09:17 08:41 Home Meds: atenolol 50 mg oral tab once daily; [facility] ck1 09:17 08:41 Home Meds: baclofen 20 mg Oral tab daily; [facility] ck1 09:17 08:41 Home Meds: Citalopram 30 mg Oral once daily; [facility] ck1 09:17 08:41 Home Meds: amitriptyline 50 mg Oral tab 1 tab once daily; [facility] ck1 09:20 08:41 PSHx: ACDFI; [facility] pc 15:32 14:45 General: Appears in no apparent distress, comfortable, Behavior is pleasant, ttb MD jeanna in to speak with pt regarding imaging. IV started and labs sent. 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 ttb 15:32 14:45 Musculoskeletal: P+ ttb ttb Chart Complete MTDD
--- NOTE | 2016-11-03 16:20 | EDDOCDS ---
Physician Documentation [facility] Name: Joao Brenner Age: 56 yrs Sex: Male : 1960 Arrival Date: 11/01/2016 Time: 08:28 Bed Family 1 Private MD: Aashish Jane Disposition: 11/01 14:19 Critical Care: Critical care not applicable. pc Disposition: 11/01/16 14:48 Discharged to Home/Self Care. 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 - Condition is Stable. - Discharge Instructions: Colon Mass, Adult, Duodenitis. - Prescriptions for Protonix 40 mg Oral Tablet - take 1 tablet by ORAL route once daily; 30 tablet. Miralax 17 gram/dose - take 17 gram by ORAL route once daily As needed dilute in 8 ounces of water or juice; 1 bottle. - Medication Reconciliation, Local Pharmacy Hours form. - Follow up: Krunal Greene; When: Call to arrange an appointment; Reason: Further diagnostic work-up, Continuance of care. Follow up: Jt Daugherty MD; When: Call to arrange an appointment; Reason: To establish care. - Problem is new. - Symptoms have improved. HPI: 09:13 This 56 yrs old Male presents to ER via Walkin/Carried/Asstd with complaints pc of Abdominal Pain. 09:13 The history is obtained from the patient. The patient presents with abdominal pain, in pc the upper abdomen. The symptoms began gradually 8 days ago, and became worse 2 days ago. Symptoms are ongoing and are constant. 09:15 At its worst, the symptoms were a 7 out of 10. In the emergency department, the pc symptoms are a 7 out of 10. The pain is described as aching. The is primarily located right upper quadrant and left upper quadrant. It radiates to the lumbar area. The pain was associated with nausea. The symptoms are aggravated by nothing. are alleviated by nothing. Risk factors for AAA: hypertension, smoking, Risk factors for CAD: family history of CAD, history of high cholesterol, history of hypertension, smoking. The patient has experienced similar episodes in the past, several times. The patient has been recently seen by their primary care provider, for a routine, regularly scheduled appointment. He has chronic opiate-induced constipation. He has recurrent upper abdominal pain for which he is scheduled for a stress test in 3 weeks. Historical: - Allergies: no known allergies; - Home Meds: 1. losartan 50 mg oral tab 1 tab once daily (Last dose: 11/01/2016 06:00) 2. atenolol 50 mg Oral tab once daily (Last dose: 11/01/2016 06:00) 3. baclofen 20 mg Oral tab daily (Last dose: 10/31/2016 11:00) 4. Citalopram 30 mg Oral once daily (Last dose: 11/01/2016 06:00) 5. 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 - Social history: Smoking status: Patient states was never smoker of tobacco. No barriers to communication noted, The patient speaks fluent [place] Citizen, Speaks appropriately for age. - Family history: Not pertinent. - : The pt / caregiver states he / she is not on anticoagulants. Home medication list is obtained from the patient. - Hospitalizations: : No recent hospitalization is reported. - Exposure Risk Screening:: None identified. - Immunization history:: All immunizations up-to-date. - Social history:: the patient smokes cigarettes the patient drinks alcohol. ROS: 09:20 All systems are negative except if listed. The constitutional, cardiovascular, pc respiratory and neurological components are also addressed in the HPI. Exam: 09:20 General Appearance: alert, no acute distress. pc 09:20 ENT: ear, nose and throat normal, pharynx normal. 09:20 Neck: The exam reveals no acute abnormalities. ROM is normal and painless. No nuchal rigidity is noted.. 09:20 Respiratory: no respiratory distress, normal breath sounds, chest non-tender. 09:20 Cardiovascular: regular pulse rate, regular heart rhythm, normal heart sounds, equal and full pulses bilaterally. 09:20 Abdomen: soft, mild tenderness in all quadrants, without rebound, voluntary guarding is elicited in all quadrants. 09:20 Back: normal inspection. 09:20 Skin: skin color is normal, warm, dry. 09:20 Extremities: The extremities have a grossly normal appearance. Vital Signs: 08:43 Pulse 68; Resp 16; Pulse Ox 99% on R/A; Weight 87.09 kg / 192 lbs (R); Height 5 ft. 10 mlb1 in. (177.80 cm) (R); Pain 7/10; 08:44 BP 193 / 103; Temp 96.6(TE); mlb1 08:44 BP 182 / 92 (auto/); ck1 08:44 Pulse 68 MON; Pulse Ox 99% ; ck1 08:59 BP 182 / 100 (auto/); ck1 08:59 Pulse 62 MON; Pulse Ox 96% ; ck1 09:14 BP 158 / 91 (auto/); ck1 09:14 Pulse 60 MON; Pulse Ox 96% ; ck1 10:07 Pain 6/10; ck1 10:10 BP 148 / 80 (auto/); ck1 10:10 Pulse 56 MON; Pulse Ox 98% ; ck1 11:08 Pulse 60 MON; Resp 18 S; Pulse Ox 100% on R/A; Pain 7/10; ttb 14:13 BP 182 / 105 (auto/); ttb 14:26 Pulse 62 MON; Resp 18; Pulse Ox 100% on R/A; Pain 3/10; ttb 14:32 Temp 97.1; jlf 08:43 Body Mass Index 27.55 (87.09 kg, 177.80 cm) mlb1 MDM: 08:44 ECG WITH READING ER PHYS+CARDIAG ordered. EDMS 09:01 Data reviewed: The patient's [facility] [employer] records were accessed, reference # [id number]. pc 09:11 IV Saline Lock ordered. pc 09:11 ketorolac 30 mg IVP once ordered. pc 09:12 Abdomen, Flat\E\Upright,PA Chest Ordered. EDMS 09:12 CBC with Diff Ordered. EDMS 09:12 MED Profile Ordered. EDMS 09:12 Liver Profile Ordered. EDMS 09:12 Lipase Ordered. EDMS 09:12 CIP Ordered. EDMS 09:12 Troponin Ordered. EDMS 09:20 Differential diagnosis: AAA, acute coronary syndrome, cholecystitis, gastritis, pc non-specific abd pain, pancreatitis, perforated viscous. Plan: labs, EKG, imaging, analgesia. Test interpretation: EKG. 09:43 CBC with Diff Reviewed. pc 09:43 MED Profile Reviewed. pc 09:43 Lipase Reviewed. pc 09:43 Troponin Reviewed. pc 09:44 Liver Profile Reviewed. pc 09:59 MED Profile Reviewed. pc 09:59 Liver Profile Reviewed. pc 09:59 Lipase Reviewed. pc 09:59 CIP Reviewed. pc 09:59 Troponin Reviewed. pc 09:59 Abdomen, Flat\E\Upright,PA Chest Reviewed. pc 10:17 CT ABD & PELVIS: IV and Oral Contrast Ordered. EDMS 10:18 Financial registration complete. mpb 10:19 [facility] Payment Agreement was scanned into [employer] and attached to record. mpb 10:41 Diatrizoate Meglumine & Sodium Liquid 10 ml PO once; mix in 290cc of water. First at ck1 1045, second at 1115 ordered. 11:13 Diatrizoate Meglumine & Sodium Liquid 10 ml PO once; mix in 290cc of water ordered. ttb 14:14 Test interpretation: LAB - all labs as ordered have been reviewed, interpreted and pc considered in the overall management of the clinical presentation; X-RAY - interpreted by Radiologist and personally reviewed, 3-view abdomen series; no acute disease, interpreted by Radiologist and personally reviewed, discussed with Radiologist, Abdomen/Pelvis CT; duodenitis; 5.8cm narrowing in mid to distal ascending colon with fecal plug proximally, concerning for malignancy. 14:19 The patient has been re-examined and re-evaluated. The patient's symptoms have mildly pc improved after treatment. Physician consultation: Dr. Krunal Greene was contacted at 14:19, regarding patient's condition, and he advises discharge home on Miralax and he will arrange for him to be seen urgently for colonoscopy . Disposition: The historical points, examination findings, and any diagnostic results supporting the provided diagnosis, were discussed with the patient or legal guardian. The need for outpatient follow up with the provider listed on their discharge instructions was discussed. They were encouraged to return to [facility], or the nearest ED, if symptoms worsen/persist, or for any other questions/concerns. 14:46 Physician consultation: Dr. Jt Daugherty MD was contacted at 14:47, regarding pc patient's condition, and will see patient in office. 11/02 10:41 ECG/EKG was scanned into [employer] and attached to record. gb EC/18 09:20 Rate is 64 beats/min. Rhythm is regular, Normal Sinus Rhythm. QRS Roe is Normal. VA pc interval is normal. QRS interval is normal. QT interval is normal. Q waves are Old in lead III. T waves are Normal. ST Segment is elevated in leads I, aVL, V2, V3, V4, V5, V6, <1mm. Clinical impression: Normal Sinus Rhythm, ST-T changes consistent with early repolarization., and Inferior [place] - age indeterminate. No change from previous ECG in Feb, 2015. Administered Medications: 09:16 Drug: ketorolac 30 mg [ketorolac 30 mg/mL (1 mL) injection solution (1 mL)] Route: IVP; ck1 Site: right antecubital; 10:07 Follow up: Pain 03/24 Adult; Response: No Adverse Reaction; No significant change. ck1 10:41 Drug: Diatrizoate Meglumine & Sodium 10 ml [diatrizoate meglumine and diat.sodium 66 ck1 %-10 % oral solution (10 mL)] Route: PO; 11:13 Drug: Diatrizoate Meglumine & Sodium 10 ml [diatrizoate meglumine and diat.sodium 66 ttb %-10 % oral solution (10 mL)] Route: PO; Signatures: Dispatcher [employer] EDMS Santo Sommers MD MD pc Johnson, Bruce, Heather Payne RN, Pj Starkey RN RN mlb1 Renay De Jesus RN RN ck1 Bette Montes RN RN ttb Briggs, Michael, Reg Reg mpb The chart was reviewed and I authenticate all verbal orders and agree with the evaluation and treatment provided.Corrections: (The following items were deleted from the chart) 09:17 08:41 Home Meds: losartan 50 mg oral tab 1 tab once daily; [facility] : 08:41 Home Meds: atenolol 50 mg oral tab once daily; [facility] 08:41 Home Meds: baclofen 20 mg Oral tab daily; [facility] : 08:41 Home Meds: Citalopram 30 mg Oral once daily; [facility] 08:41 Home Meds: amitriptyline 50 mg Oral tab 1 tab once daily; [address] 08:41 PSHx: ACDFI; mlb1 pc Attachments: 10:19 [facility] Payment Agreement mpb 11/02 10:41 ECG/EKG gb Chart Complete MTDD
== END 2016-11-01 15:19 | disposition home or self-care (01) ==
LOC: M ED 08:28
DX: D37.4 Neoplasm of uncertain behavior of colon (principal); K29.80 Duodenitis without bleeding; I10 Essential (primary) hypertension; F32.9 Major depressive disorder, single episode, unspecified; G95.89 Other specified diseases of spinal cord; G82.50 Quadriplegia, unspecified; M54.2 Cervicalgia; G89.29 Other chronic pain; F10.20 Alcohol dependence, uncomplicated; Z79.899 Other long term (current) drug therapy; F17.210 Nicotine dependence, cigarettes, uncomplicated
CPT/HCPCS: 36415; 74022; 74177; 80048; 80076; 82550; 82553; 83690; 84484; 85025; 93005; 96374; 99285; J1885; Q9963; Q9967

== ENCOUNTER 2016-11-04 20:57 | Inpatient (IN) | payer MEDICARE, MEDICAID ==
[~2016-11-04] VITALS: Ht 177.8 cm; Wt 88.1 kg
[2016-11-04 21:43] LABS: BASO % 0.4 % (0.0-1.0); EOS # 0.2 K/mm3 (0.0-0.50); LARGE UNSTAINED CELL # 0.1 K/mm3 (0.0-0.4); LARGE UNSTAINED CELL % 1.1 % (0.0-4.0); LYMPH % 24.3 % (24.0-44.0); MEAN CORPUSCULAR HEMOGLOBIN 33.4 pg (27.0-33.0); MEAN CORPUSCULAR HGB CONC 33.4 g/dl (32.0-36.5); MEAN CORPUSCULAR VOLUME 99.9 fl (80.0-96.0); MONO # 0.5 K/mm3 (0.0-0.8); MONO % 5.8 % (0.0-5.0); NEUTROPHILS # 5.2 K/mm3 (1.8-7.7); NEUTROPHILS % 66.4 % (36.0-66.0); PLATELET COUNT, AUTOMATED 207 k/mm3 (150-450); RED CELL DISTRIBUTION WIDTH 12.8 % (11.5-14.5); WHITE BLOOD COUNT 7.8 K/mm3 (4.0-10.0)
[2016-11-04] MEDS ORDERED: ONDANSETRON 4MG/2ML VIAL (J2405) As Ordered ONE (22:05)
[2016-11-04] MEDS ORDERED: MORPHINE 4 MG/ML 1ML SYRINGE As Ordered ONE (22:06)
[2016-11-04 22:07] LABS: ALBUMIN 3.3 GM/DL (3.2-5.2); ALBUMIN/GLOBULIN RATIO 0.85 (1.00-1.93); ALKALINE PHOSPHATASE 80 U/L (45-117); ALT/SGPT 32 U/L (12-78); ANION GAP 7 MEQ/L (8-16); AST/SGOT 25 U/L (15-37); BILIRUBIN,DIRECT 0.1 MG/DL (0.0-0.2); BILIRUBIN,TOTAL 0.7 MG/DL (0.2-1.0); BLOOD UREA NITROGEN 8 MG/DL (7-18); CALCIUM LEVEL 8.7 MG/DL (8.5-10.1); CARBON DIOXIDE LEVEL 29 MEQ/L (21-32); CHLORIDE LEVEL 103 MEQ/L (98-107); GLOMERULAR FILTRATION RATE > 60.0 (>56); GLUCOSE, FASTING 108 MG/DL (70-105); POTASSIUM SERUM 3.8 MEQ/L (3.5-5.1); SODIUM LEVEL 139 MEQ/L (136-145); TOTAL PROTEIN 7.2 GM/DL (6.4-8.2)
[2016-11-04] MEDS ORDERED: ISOVUE-370 76% 100ML VIAL (Q9967) As Ordered ONE (22:22)
[2016-11-04] MEDS ORDERED: HYDROmorphone HCL 1 MG/ML SYRINGE (J1170) As Ordered ONE ×2 (22:45→23:57)
--- NOTE | 2016-11-05 00:30 | REPUSA ---
CLINICAL HISTORY: Abdominal pain. TECHNIQUE: Multiple axial, sagittal and coronal CT images were obtained through the abdomen and pelvi s after administration of intravenous contrast material. COMMENTS: The liver is mildly enlarged with decreased attenuation without mass or defect. There is no intra or extrahepatic biliary ductal dilatation. The spleen is normal. The gallbladder is surgically absent. T he pancreatic head is enlarged and hypodense. Surrounding fat stranding. Surrounding free fluid. Ther e is no evidence of adrenal mass. Both kidneys demonstrate prompt and equal nephrograms. The kidneys are normal in size, shape and conf iguration. There is no evidence of renal or ureteral mass. No renal or ureteral calculi are identifie d. There is no hydroureter or hydronephrosis. No evidence for appendicitis. There is no bowel wall thickening. No evidence for small or large ada l obstruction. There is no evidence of abdominal ascites or lymphadenopathy. There is no evidence of intrinsic or extrinsic bladder mass. There is no pelvic ascites or lymphadeno zenia. Mild prostatomegaly. Prostatic calcifications. Diffuse thickening of the wall of the bladder. Images of the lung bases show no evidence of pleural or parenchymal mass. There are no pleural effusi ons. The bony structures are free of lytic or blastic lesions. IMPRESSION: Acute pancreatitis. No fluid collection. Cholecystectomy. Hepatomegaly with fatty liver infiltration. Thank you for your kind referral of this patient.
[2016-11-05] MEDS ORDERED: PROT1TAB2 PO (01:12)
[2016-11-05] MEDS ORDERED: CELE40TA PO (01:12)
[2016-11-05] MEDS ORDERED: LOSA100T36 PO (01:12)
[2016-11-05] MEDS ORDERED: FENO160T10 PO (01:12)
[2016-11-05] MEDS ORDERED: AMIT50TA PO (01:12)
[2016-11-05] MEDS ORDERED: MIRA3350 PO (01:13)
[2016-11-05] MEDS ORDERED: HYDR-3713 PO (01:13)
[2016-11-05] MEDS ORDERED: MORPHINE 2 MG/ML 1ML SYRINGE As Ordered ONE ×5 (03:26→16:58)
[2016-11-05] MEDS ORDERED: ONDANSETRON 4MG/2ML VIAL (J2405) IV PRN (03:30)
[2016-11-05] MEDS ORDERED: ACETAMINOPHEN TAB 650MG DOSE (2X325MG) PO PRN (03:30)
[2016-11-05] MEDS ORDERED: OXAZEPAM 10 MG CAP PO PRN ×2 (04:00→04:15)
[2016-11-05 04:42] VITALS: BP 133/82
[2016-11-05] MEDS ORDERED: PERCOCET 5MG/325MG TAB As Ordered ONE ×2 (04:52→08:56)
[2016-11-05] MEDS: PERCOCET 5MG/325MG TAB PO PRN ×2 (04:56→08:58)
[2016-11-05] MEDS: OXAZEPAM 10 MG CAP PO SCH ×3 (06:15→22:00)
[2016-11-05] MEDS: NS 1,000 ML IV SCH ×4 (06:16→22:11)
[2016-11-05] MEDS: MORPHINE 2 MG/ML 1ML SYRINGE IV PRN ×6 (06:42→21:43)
[2016-11-05 07:09] LABS: BASO % 0.1 % (0.0-1.0); EOS # 0.1 K/mm3 (0.0-0.50); EOS % 1.8 % (0.0-3.0); LARGE UNSTAINED CELL # 0.1 K/mm3 (0.0-0.4); LARGE UNSTAINED CELL % 1.2 % (0.0-4.0); LYMPH # 1.2 K/mm3 (1.5-4.5); LYMPH % 18.5 % (24.0-44.0); MEAN CORPUSCULAR HEMOGLOBIN 33.5 pg (27.0-33.0); MEAN CORPUSCULAR HGB CONC 34.1 g/dl (32.0-36.5); MEAN CORPUSCULAR VOLUME 98.3 fl (80.0-96.0); MONO # 0.4 K/mm3 (0.0-0.8); MONO % 5.8 % (0.0-5.0); NEUTROPHILS # 4.8 K/mm3 (1.8-7.7); NEUTROPHILS % 72.5 % (36.0-66.0); PLATELET COUNT, AUTOMATED 180 k/mm3 (150-450); RED CELL DISTRIBUTION WIDTH 11.9 % (11.5-14.5); WHITE BLOOD COUNT 6.7 K/mm3 (4.0-10.0)
[2016-11-05 07:27] LABS: ALBUMIN 2.8 GM/DL (3.2-5.2); ALKALINE PHOSPHATASE 63 U/L (45-117); ALT/SGPT 23 U/L (12-78); ANION GAP 7 MEQ/L (8-16); AST/SGOT 17 U/L (15-37); BLOOD UREA NITROGEN 6 MG/DL (7-18); CALCIUM LEVEL 7.8 MG/DL (8.5-10.1); CARBON DIOXIDE LEVEL 26 MEQ/L (21-32); CHLORIDE LEVEL 107 MEQ/L (98-107); CREATININE FOR GFR 0.86 MG/DL (0.70-1.30); GLOMERULAR FILTRATION RATE > 60.0 (>56); GLUCOSE, FASTING 97 MG/DL (70-105); POTASSIUM SERUM 3.6 MEQ/L (3.5-5.1); SODIUM LEVEL 140 MEQ/L (136-145); TOTAL PROTEIN 6.3 GM/DL (6.4-8.2)
--- NOTE | 2016-11-05 07:56 | HPE ---
DATE OF ADMISSION: 11/05/2016 PRIMARY CARE PROVIDER: Aashish Jane MD CHIEF COMPLAINT: Abdominal pain. HISTORY OF PRESENT ILLNESS: Mr. Brenner is a 56-year-old male with past medical history of tubulovillous adenoma and alcohol abuse who presented to the ED tonight with complaint of abdominal pain that started approximately a week ago. Pain is located diffusely in his abdomen and radiates to his back. Describes as "insistent." Associated with nausea, vomiting, constipation, 11 pound weight loss in the last month and decreased appetite. The last time he was able to eat anything was yesterday where he had a sandwich, but unable to keep that down. Symptoms have progressed in the last few days. Actually presented to the ED two days ago. At that time, had CT of the abdomen and pelvis that showed a concerning 5.8 cm area of narrowing within the mid to distal ascending colon. He was then discharged home with MiraLAX, Protonix, and referred to see Dr. Greene. However, because of persistent pain he decided to come in for further evaluation. His last bowel movement this morning was a very small amount of stool, somewhat loose. No hematemesis, hematochezia or melena. In the ED, received Zofran times one, Dilaudid 1 mg times two, morphine 4 mg and a total of 2 liters of fluid, normal saline. PAST MEDICAL HISTORY: Tubulovillous adenoma. Cervical myelopathy with left greater than right. Alcoholism. Chronic neck pain. Depression. Diverticulosis. Hypertension. PAST SURGICAL HISTORY: Cholecystectomy. Appendectomy. Partial corpectomies C4 to C3 with discectomy. Bilateral inguinal hernia repair 2014. Colonoscopies. Most recent one 2013 showing internal hemorrhoids, 2010 showed 11 mm polyp that came back positive for tubular adenomatous. ALLERGIES: No known drug allergies. HOME MEDICATIONS: - Dietrich one tablet by mouth every 4 hours as needed - amitriptyline 50 mg by mouth at bedtime as needed for pain and discomfort - atenolol 50 mg by mouth daily - baclofen 20 mg by mouth three times a day - Celexa 40 mg every two days - Colace 100 mg by mouth as needed for constipation - fenofibrate 160 mg every two days - losartan 100 mg by mouth daily - Protonix 40 mg by mouth daily - MiraLAX 17 grams by mouth daily FAMILY HISTORY: Father of a heart attack at 76. Mother of a heart attack at 63. Sister from cervical cancer. SOCIAL HISTORY: Patient is a nonsmoker. Drinks alcohol excessively, mostly beer. Can drink up to seven beers a day, but does not do this everyday and does not report symptoms of withdrawal when not drinking. No drug use. He currently is on disability. 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 Currently lives at home with his . No history of TB or asbestos exposure. No pets. No lifetime travel. REVIEW OF SYSTEMS: CONSTITUTIONAL: Denies fevers, chills, rigors. Positive for unintentional 11 pound weight loss in the last month. HEENT: Denies headaches, lightheadedness, dizziness, blurry vision, difficulty with speech and swallow. Positive for chronic neck pain status post surgery. CARDIOVASCULAR: Denies chest pain, paroxysmal nocturnal dyspnea, pillow orthopnea, lower extremity edema. PULMONARY: Denies shortness of breath, productive cough, hemoptysis. GASTROINTESTINAL: Positive for abdominal pain as mentioned above. GENITOURINARY: Positive for decreased urine output as he has not had good by mouth intake. Occasional burning on urination, though urinalysis was negative. MUSCULOSKELETAL: No bone, muscle, joint pain. NEUROLOGICAL: Positive for cervical myelopathy as mentioned above. No headaches, lightheadedness or dizziness. ENDOCRINE: Negative for diabetes, or thyroid disease. LYMPHATICS: No new lumps, bumps, or swelling anywhere in neck, axilla, or groin. HEMATOLOGY: No abnormal bleeding or bruising. ONCOLOGY: No history of malignancy. PSYCHIATRIC: Positive for depression and anxiety. PHYSICAL EXAMINATION: VITALS: Blood pressure 159/85, heart rate 76, respiratory rate 20, temperature 98.1, pulse oximetry 100% on room air. Body mass index (BMI) 27. GENERAL: Patient was lying in bed, flat angle, comfortable in no acute respiratory distress. at bedside. HEENT: Normocephalic, atraumatic. Moist oral mucosa. Fair dentition. Extraocular movements intact. NECK: Supple. Trachea midline. CHEST: Symmetric chest rise, no accessory muscle use. Breath sounds clear to auscultation bilaterally. HEART: Regular rate and rhythm. S1 and S2 present. ABDOMEN: Diffusely tender to light palpation. No guarding. No rebound. Bowel sounds present. EXTREMITY: No pedal edema. Pedal pulses present bilaterally. Left lower extremity in ankle foot orthosis. PSYCHIATRIC: Appears anxious. LABORATORY DATA: WBC 7.8, hemoglobin 13.2, hematocrit 39.4, platelets 207, sodium 139, potassium 3.8, chloride 103, carbon dioxide 29, BUN 8, creatinine 1, fasting glucose 108, calcium 8.7, total bilirubin 0.7, direct bilirubin 0.1, AST 25, ALT 32, alkaline phosphatase 80, lipase 404. These are improved compared to two days earlier. Total bilirubin then was 2 and lipase was 454. CT abdomen and pelvis on 11/01/2016 reports mural thickening and mesenteric inflammation in the region duodenal C loop and inferior to the gallbladder fossa. Concern for area of fixed narrowing within the mid to distal ascending colon of 5.8 cm length. Also appears to be inspissates fecal material proximal to this area of narrowing. Also concern for fixed lesion. Fatty infiltration of the liver. Repeat CT with IV contrast today showed acute pancreatitis. No fluid collection. Status post cholecystectomy. Hepatomegaly with fatty infiltration of the liver. IMPRESSION/PLAN: Mr. Brenner is a 56-year-old male with past medical history of tubulous adenoma who presented to the ED with complaint of abdominal pain. 1. Acute pancreatitis. The patient will be made nothing by mouth and started on IV fluid hydration and pain control with morphine and Percocet. His pancreatitis is likely secondary to alcohol use. However, will check a cholesterol level. Continue to monitor him closely as he will require multiple narcotics and benzos. 2. Abdominal pain. Likely secondary to acute pancreatitis and mass founding on CT. Continue pain control as mentioned above. 3. Abnormal CT abdomen and pelvis. CT of the abdomen and pelvis performed 2-3 days showed concerning for a lesion. He previously was recommended to followup with Dr. Greene outpatient. Will consult Dr. Greene for further evaluation in the morning regarding this abnormal CT finding. It is concerning that he also reports constipation and an 11-pound weight loss. 4. Alcohol use. Have started him on as needed and scheduled Serax to prevent withdrawals. 5. Hypertension. Continue home dose medication with hold parameters. Currently his renal function is doing well. 6. Chronic neck pain. Continue medications as mentioned above. Continue baclofen and amitriptyline. 7. Depression. Continue amitriptyline. 8. Constipation. Could be due to malignancy. Have started him on stool softeners. 9. Deep vein thrombosis (DVT) prophylaxis. Sequential compression devices (SCD), thromboembolic deterrent stockings (TEDS) and Lovenox. DISPOSITION: Due to patient's condition we expect his stay to be greater than two midnights. My preceptor for this patient encounter was Dr. Krunal Davenport. The preceptor was physically present in the building during the encounter and was fully available. As needed, all aspects of the patient interview, examination, medical decision making process, and medical care plan development were reviewed and approved by the preceptor. The preceptor is aware and concurs with the plan as stated in the body of this note and will attest to such by his/her cosignature. LUMA
[2016-11-05 08:00] VITALS: BP 135/71
[2016-11-05] MEDS: MIRALAX *UNIT DOSE* 17GM PACKET PO SCH (08:59)
[2016-11-05] MEDS: PANTOPRAZOLE 40MG TAB (PROTONIX) PO SCH (09:00)
[2016-11-05] MEDS: SENNA 8.6 MG TAB (SENOKOT) PO SCH ×2 (09:00→21:19)
[2016-11-05] MEDS: SENOKOT S TAB PO SCH ×2 (09:00→21:19)
[2016-11-05] MEDS: LOSARTAN 50 MG TAB PO SCH (09:00)
[2016-11-05] MEDS: CitaloPRAM (CeleXA) 20 MG TAB PO SCH (09:00)
[2016-11-05] MEDS: ATENOLOL 50 MG TAB PO SCH (09:02)
[2016-11-05] MEDS: ENOXAPARIN 40 MG/0.4 ML SYRINGE (J1650) SC SCH (09:02)
[2016-11-05 14:00] VITALS: BP 165/84
[2016-11-05 17:30] VITALS: BP 158/88
--- NOTE | 2016-11-05 19:12 | EDDOCDS ---
Physician Documentation [facility] Name: Joao Brenner Age: 56 yrs Sex: Male : 1960 Arrival Date: 11/04/2016 Time: 20:57 Bed Admit Hold Private MD: Aashish Jane H. Disposition: 11/05/16 00:57 Hospitalization ordered by Krunal Davenport for Inpatient Admission. 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 - Bed requested for 4 [place]. - Status is Inpatient Admission. bcj - Condition is Stable. - Problem is chronic. - Symptoms have improved. Historical: - Allergies: No known drug Allergies; - Home Meds: 1. amitriptyline 50 mg Oral tab 1 tab once daily (Last dose: 11/04/2016) 2. atenolol 50 mg Oral tab once daily (Last dose: 11/04/2016) 3. baclofen 20 mg Oral tab daily (Last dose: 11/04/2016) 4. Citalopram 30 mg Oral once daily (Last dose: 11/04/2016) 5. losartan 50 mg oral tab 1 tab once daily (Last dose: 11/04/2016) 6. Protonix 40 mg oral TbEC 1 tab once daily (Last dose: 11/04/2016) 7. 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 - Family history: Not pertinent. - : The pt / caregiver states he / she is not on anticoagulants. Home medication list is obtained from the patient, [employer] import data. - Exposure Risk Screening:: None identified. Vital Signs: 11/04 20:58 BP 159 / 85; Pulse 79; Resp 20 S; Temp 98.1(O); Pulse Ox 100% on R/A; Weight 86.18 kg / gr2 189.99 lbs (R); Height 5 ft. 10 in. (177.80 cm) (R); Pain 9/10; 22:42 Pulse 68 MON; Pulse Ox 96% ; mlc 22:42 BP 174 / 92 (auto/); mlc 22:50 BP 174 / 92; Pain 10/10; mlc 23:02 BP 154 / 84 (auto/); mlc 23:02 Pulse 70 MON; Pulse Ox 91% ; mlc 23:22 BP 148 / 86 (auto/); mlc 23:22 Pulse 78 MON; Pulse Ox 97% ; mlc 23:22 BP 154 / 84; Pulse 84; Pulse Ox 96% ; Pain 7/10; mlc 23:42 BP 138 / 82 (auto/); mlc 23:42 Pulse 70 MON; Pulse Ox 92% ; mlc 11/05 00:02 Pulse 78 MON; Pulse Ox 95% ; mlc 00:02 BP 147 / 81 (auto/); mlc 00:21 BP 147 / 81; Pulse 87; Resp 18; Pulse Ox 93% ; Pain 6/10; mlc 00:22 Pulse 74 MON; Pulse Ox 93% ; mlc 00:22 BP 131 / 73 (auto/); mlc 00:42 Pulse 82 MON; Pulse Ox 96% ; mlc 00:42 BP 142 / 82 (auto/); mlc 01:02 Pulse 80 MON; Pulse Ox 96% ; mlc 01:02 BP 144 / 90 (auto/); mlc 01:22 Pulse 74 MON; Pulse Ox 94% ; mlc 01:22 BP 156 / 82 (auto/); mlc 01:42 BP 136 / 76 (auto/); mlc 01:42 Pulse 76 MON; Pulse Ox 96% ; mlc 02:02 Pulse 78 MON; Pulse Ox 97% ; mlc 02:02 BP 147 / 81 (auto/); mlc 02:22 Pulse 76 MON; Pulse Ox 91% ; mlc 02:22 BP 129 / 80 (auto/); mlc 02:42 Pulse 82 MON; Pulse Ox 93% ; mlc 02:42 BP 145 / 78 (auto/); mlc 03:02 Pulse 82 MON; Pulse Ox 95% ; mlc 03:02 BP 157 / 78 (auto/); mlc 03:22 BP 175 / 97 (auto/); mlc 03:22 Pulse 76 MON; Pulse Ox 94% ; mlc 03:42 Pulse 74 MON; Pulse Ox 93% ; mlc 03:42 BP 145 / 80 (auto/); mlc 04:02 Pulse 74 MON; Pulse Ox 95% ; mlc 04:02 BP 150 / 81 (auto/); mlc 04:22 BP 157 / 82 (auto/); mlc 04:33 Pulse 66 MON; Pulse Ox 93% ; mlc 04:42 Pulse 68 MON; Pulse Ox 93% ; mlc 04:42 BP 133 / 82 (auto/); mlc 04:58 Resp 20; Temp 99.0(TE); [facility] [place]/04 20:58 Body Mass Index 27.26 (86.18 kg, 177.80 cm) gr2 MDM: 11/04 21:23 Undress patient appropriately for examination ordered. fg 21:23 IV Saline Lock ordered. fg 21:24 Basic Metabolic Profile Ordered. EDMS 21:24 CBC with Diff Ordered. EDMS 21:24 Lipase Ordered. EDMS 21:24 Liver Profile Ordered. EDMS 21:25 Urinalysis Ordered. EDMS 21:25 Urine Culture Ordered. EDMS 21:25 NOTHING BY MOUTH+DIET ordered. EDMS 22:03 CT ABD & PELVIS: IV Contrast Only Ordered. EDMS 22:03 morphine 4 mg IVP once ordered. fg 22:03 Ondansetron 4 mg IVP once ordered. fg 22:42 Dilaudid - HYDROmorphone 1 mg IVP once ordered. fg 23:54 Dilaudid - HYDROmorphone 1 mg IVP once ordered. fg 11/05 00:05 Financial registration complete. [facility] 00:34 Basic Metabolic Profile Reviewed. cs11 00:34 CBC with Diff Reviewed. cs11 00:34 Lipase Reviewed. cs11 00:34 Liver Profile Reviewed. cs11 00:34 Urinalysis Reviewed. cs11 00:37 NS 0.9% 1000 ml IV at bolus once ordered. cs11 00:37 NS 0.9% 1000 ml IV at 250 mL/hr continuous ordered. cs11 00:37 BED REQUEST+ADM ordered. EDMS 01:18 [facility] [place] Payment Agreement was scanned into [employer] and attached to record. [facility] 03:28 Written Provider Order was scanned into [employer] and attached to record. ml3 03:32 NPO DIET ordered. EDMS 03:32 morphine 2 mg IVP once ordered. mlc 03:33 CBC WITH DIFFERENTIAL Ordered. EDMS 03:33 COMPLETE COMPHRENSIVE METABOLI Ordered. EDMS 03:33 LIPASE Ordered. EDMS 03:52 CARDIAC RISK PROFILE Ordered. EDMS 04:05 Admission / Observation Status ordered. EDMS 04:48 Admission / Observation Status ordered. EDMS 04:49 oxyCODONE-acetaminophen 5 mg-325 mg 1 tabs PO once ordered. [facility] [place] T-Sheet-- Draft Copy was scanned into [employer] and attached to record. klr Administered Medications: 11/04 22:13 Drug: morphine 4 mg [morphine 4 mg/mL intravenous cartridge (1 mL)] Route: IVP; Site: mlc right antecubital; 22:50 Follow up: BP 174 / 92; Pain 10/10 Adult; Response: No significant change. [facility] [place]:13 Drug: Ondansetron 4 mg [ondansetron HCl 2 mg/mL intravenous solution (2 mL)] Route: mlc IVP; Site: right antecubital; 23:22 Follow up: Response: Nausea is decreased [facility] [place]:50 Drug: Dilaudid - HYDROmorphone 1 mg [hydromorphone 1 mg/mL injection syringe (1 mL)] [facility] [place]: IVP; Site: right antecubital; 23:22 Follow up: BP 154 / 84; Pulse 84 bpm; Pulse Ox 96% ; Pain 7/10 Adult; Response: Pain is mlc decreased; pt states he does not need additional medication at this time. 11/05 00:02 Drug: Dilaudid - HYDROmorphone 1 mg [hydromorphone 1 mg/mL injection syringe (1 mL)] [facility] [place]: IVP; Site: right antecubital; 00:21 Follow up: BP 147 / 81; Pulse 87 bpm; Resp 18 bpm; Pulse Ox 93% ; Pain 6/10 Adult; mlc Response: Pain is decreased 00:42 Drug: NS 0.9% 1000 ml [sodium chloride 0.9 % intravenous solution] Route: IV; Rate: mlc bolus; Site: right antecubital; 01:53 Follow up: IV Status: Completed infusion [facility] [place] 01:53 Drug: NS 0.9% 1000 ml [sodium chloride 0.9 % intravenous solution] Route: IV; Rate: 250 mlc mL/hr; Site: right antecubital; 03:32 Drug: morphine 2 mg [morphine 2 mg/mL intravenous cartridge (1 mL)] Route: IVP; Site: mlc right antecubital; 04:56 Drug: oxyCODONE-acetaminophen 1 tabs [oxycodone-acetaminophen 5 mg-325 mg tablet (1 mlc tabs)] Route: PO; Signatures: Dispatcher [employer] EDLauren Diaz RN RN [id number] Yasir Dodge RN RN [facility] Surendra Jon, Position Classification Manager Unit ml3 Gerry He, DO cs11 Rosie Finnegan RN RN mlc Sourwine, Sharon, RN RN [facility]2 Mari Bravo [facility] Peg Sanchez MD MD fg Redder, Kathie klr The chart was reviewed and I authenticate all verbal orders and agree with the evaluation and treatment provided.Attachments: 01:18 [facility] Payment Agreement [facility] 03:28 Written Provider Order ml3 18:37 T-Sheet-- Draft Copy klr [id number]
--- NOTE | 2016-11-05 19:12 | EDDOCDS ---
Nurse's Notes [facility] Name: Joao Brenner Age: 56 yrs Sex: Male : 1960 Arrival Date: 11/04/2016 Time: 20:57 Bed Admit Hold Private MD: Aashish Jane H. Diagnosis: Alcohol-induced chronic pancreatitis Presentation: 11/04 21:00 Presenting complaint: Patient states: Pain entire abdomen. Was seen here Nov 01 for kmg1 same and Diagnosed with masses in abdomen. Unable to bear the pain now. Adult Sepsis Screening: The patient does not have new or worsening altered mentation. Patient's respiratory rate is less than 22. Systolic blood pressure is greater than 100. Patient has a qSOFA score of 0- Negative Sepsis Screen. Suicide/Homicide risk assessment- the patient denies having any suicidal and/or homicidal ideations and does not present with any other emotional, behavioral or mental health complaints. Status: Patient is not a account services analyst or dependent. Transition of care: patient was not received from another setting of care. 21:00 Acuity: TAPAN Level 3 km 21:00 Method Of Arrival: Walkin/Carried/Asstd km Triage Assessment: 21:06 General: Appears ill, uncomfortable, Behavior is appropriate for age. [place]: [place] [facility] [place] [place] Pain currently is 10 out of 10 on a pain scale. Quality of pain is described as sharp, Is continuous. HIV screening NA for this visit Offered previously. GI: Reports lower abdominal pain, upper abdominal pain, nausea, vomiting. Historical: - Allergies: No known drug Allergies; - Home Meds: 1. amitriptyline 50 mg Oral tab 1 tab once daily (Last dose: 11/04/2016) 2. atenolol 50 mg Oral tab once daily (Last dose: 11/04/2016) 3. baclofen 20 mg Oral tab daily (Last dose: 11/04/2016) 4. Citalopram 30 mg Oral once daily (Last dose: 11/04/2016) 5. losartan 50 mg oral tab 1 tab once daily (Last dose: 11/04/2016) 6. Protonix 40 mg oral TbEC 1 tab once daily (Last dose: 11/04/2016) 7. 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 - Family history: Not pertinent. - : The pt / caregiver states he / she is not on anticoagulants. Home medication list is obtained from the patient, [email or web address] import data. - Exposure Risk Screening:: None identified. Screenin:14 Screening information is obtained from the patient. Fall risk: No risks identified. mlc Assistance ADL's: requires no assistance with activities of daily living. Abuse/DV Screen: The patient / caregiver reports he/she is: not in a situation that causes fear, pain or injury. Nutritional screening: No deficits noted. Advance Directives: There is no active DNR order. home support is adequate. Assessment: 22:14 General: Appears in no apparent distress, uncomfortable, Behavior is anxious, mlc cooperative. Pain: Location: right upper quadrant and left upper quadrant Pain currently is 10 out of 10 on a pain scale. Pain radiates to mid back area. Neurological: Level of Consciousness is awake, alert, obeys commands, Oriented to person, place, time. Respiratory: Airway is patent Respiratory effort is even, unlabored, Respiratory pattern is regular. GI: Abdomen is non- distended Bowel sounds present X 4 quads. Abd is soft X 4 quads Abd is tender to palpation in right upper quadrant and left upper quadrant. GI: Reports nausea, vomiting, intolerance of food. Derm: Skin is pink, warm & dry. 22:50 Reassessment: Patient appears in no apparent distress at this time. Patient states mlc symptoms have not improved. no pain relief, Dr. Sanchez made aware. resp easy/unlabored. pt medicated per order. 11/05 00:02 Reassessment: Patient appears in no apparent distress at this time. pt medicated per mlc order. resp easy/unlabored. . 00:21 Reassessment: Patient appears in no apparent distress at this time. Patient states mlc feeling better. 01:53 Reassessment: Patient appears in no apparent distress at this time. IV fluids infusing mlc per order. resp easy/unlabored. . 02:30 Reassessment: Patient appears in no apparent distress at this time. pt resting in bed. mlc no changes since prior. 03:33 Reassessment: Patient appears in no apparent distress at this time. pt medicated [place] [facility] [place]. IV fluids infusing per order. resp easy/unlabored. . 04:56 General: Appears in no apparent distress, Behavior is cooperative, pt medicated per mlc order. Neurological: Level of Consciousness is awake, alert, Oriented to person, place, time. Respiratory: Airway is patent Respiratory effort is even, unlabored, Respiratory pattern is regular. Vital Signs: 11/04 20:58 BP 159 / 85; Pulse 79; Resp 20 S; Temp 98.1(O); Pulse Ox 100% on R/A; Weight 86.18 kg gr2 (R); Height 5 ft. 10 in. (177.80 cm) (R); Pain 9/10; 22:42 Pulse 68 MON; Pulse Ox 96% ; mlc 22:42 BP 174 / 92 (auto/); mlc 22:50 BP 174 / 92; Pain 10/10; mlc 23:02 BP 154 / 84 (auto/); mlc 23:02 Pulse 70 MON; Pulse Ox 91% ; mlc 23:22 BP 148 / 86 (auto/); mlc 23:22 Pulse 78 MON; Pulse Ox 97% ; mlc 23:22 BP 154 / 84; Pulse 84; Pulse Ox 96% ; Pain 7/10; mlc 23:42 BP 138 / 82 (auto/); mlc 23:42 Pulse 70 MON; Pulse Ox 92% ; mlc 11/05 00:02 Pulse 78 MON; Pulse Ox 95% ; mlc 00:02 BP 147 / 81 (auto/); mlc 00:21 BP 147 / 81; Pulse 87; Resp 18; Pulse Ox 93% ; Pain 6/10; mlc 00:22 Pulse 74 MON; Pulse Ox 93% ; mlc 00:22 BP 131 / 73 (auto/); mlc 00:42 Pulse 82 MON; Pulse Ox 96% ; mlc 00:42 BP 142 / 82 (auto/); mlc 01:02 Pulse 80 MON; Pulse Ox 96% ; mlc 01:02 BP 144 / 90 (auto/); mlc 01:22 Pulse 74 MON; Pulse Ox 94% ; mlc 01:22 BP 156 / 82 (auto/); mlc 01:42 BP 136 / 76 (auto/); mlc 01:42 Pulse 76 MON; Pulse Ox 96% ; mlc 02:02 Pulse 78 MON; Pulse Ox 97% ; mlc 02:02 BP 147 / 81 (auto/); mlc 02:22 Pulse 76 MON; Pulse Ox 91% ; mlc 02:22 BP 129 / 80 (auto/); mlc 02:42 Pulse 82 MON; Pulse Ox 93% ; mlc 02:42 BP 145 / 78 (auto/); mlc 03:02 Pulse 82 MON; Pulse Ox 95% ; mlc 03:02 BP 157 / 78 (auto/); mlc 03:22 BP 175 / 97 (auto/); mlc 03:22 Pulse 76 MON; Pulse Ox 94% ; mlc 03:42 Pulse 74 MON; Pulse Ox 93% ; mlc 03:42 BP 145 / 80 (auto/); mlc 04:02 Pulse 74 MON; Pulse Ox 95% ; mlc 04:02 BP 150 / 81 (auto/); mlc 04:22 BP 157 / 82 (auto/); mlc 04:33 Pulse 66 MON; Pulse Ox 93% ; mlc 04:42 Pulse 68 MON; Pulse Ox 93% ; mlc 04:42 BP 133 / 82 (auto/); mlc 04:58 Resp 20; Temp 99.0(TE); mlc 11/04 20:58 Body Mass Index 27.26 (86.18 kg, 177.80 cm) gr2 Vitals: 11/04 20:58 Log In Time: November 04, 2016 at 20:58. gr2 ED Course: 20:57 Patient visited by Rosalba Acevedo. gr2 20:57 Patient moved to Waiting gr2 20:58 Aashish Jane is Private Physician. gr2 20:59 Patient visited by Rosalba Acevedo. gr2 20:59 Patient moved to Pre RCE gr2 21:01 Triage Initiated kmg1 21:12 Rosie Finnegan,RN is Primary Nurse. kmg1 21:12 Patient moved to 11 kmg1 21:20 Peg Sanchez MD is Attending Physician. fg 21:37 Basic Metabolic Profile Sent. mlc 21:37 CBC with Diff Sent. mlc 21:37 Lipase Sent. mlc 21:37 Liver Profile Sent. mlc 21:50 Patient visited by Peg Sanchez MD. fg 22:14 The patient / caregiver is instructed regarding the plan of care and ED course. mlc 22:14 Urinalysis Sent. mlc 22:14 Urine Culture Sent. [facility] 22:14 Inserted saline lock: 20 gauge in right antecubital area and blood collected. The [facility] patient tolerated the procedure well. 22:16 Patient visited by Rosie Finnegan RN. [facility] 22:51 Patient visited by Rosie Finnegan RN. [facility] 23:23 Patient visited by Rosie Finnegan RN. [facility] 23:56 Attending Physician role handed off by Peg Sanchez MD cs11 23:56 Gerry He DO is Attending Physician. [facility] 11/05 00:03 Patient visited by Rosie Finnegan RN. [facility] 00:22 Patient visited by Rosie Finnegan RN. [facility] 00:37 CT ABD & PELVIS: IV Contrast Only Returned. EDMS 00:57 Krunal Davenport MD is Hospitalizing Provider. [facility] 01:18 [facility] Payment Agreement was scanned into [employer] and attached to record. [facility] 01:54 Patient visited by Rosie Finnegan RN. [facility] 03:28 Written Provider Order was scanned into [employer] and attached to record. ml3 03:34 Patient visited by Rosie Finnegan RN. mlc 04:52 Patient moved to I kylee 04:58 Patient visited by Rosie Finnegan RN. [facility] 06:43 Patient moved to Admit Hold oct 07:11 Primary Nurse role handed off by Rosie Finnegan RN ar3 18:37 T-Sheet-- Draft Copy was scanned into [employer] and attached to record. klr Administered Medications: 11/04 22:13 Drug: morphine 4 mg [morphine 4 mg/mL intravenous cartridge (1 mL)] Route: IVP; Site: [facility] right antecubital; 22:50 Follow up: BP 174 / 92; Pain 10/10 Adult; Response: No significant change. [facility] 22:13 Drug: Ondansetron 4 mg [ondansetron HCl 2 mg/mL intravenous solution (2 mL)] Route: [facility] IVP; Site: right antecubital; 23:22 Follow up: Response: Nausea is decreased [facility] 22:50 Drug: Dilaudid - HYDROmorphone 1 mg [hydromorphone 1 mg/mL injection syringe (1 mL)] [facility] Route: IVP; Site: right antecubital; 23:22 Follow up: BP 154 / 84; Pulse 84 bpm; Pulse Ox 96% ; Pain 7/10 Adult; Response: Pain is mlc decreased; pt states he does not need additional medication at this time. 11/05 00:02 Drug: Dilaudid - HYDROmorphone 1 mg [hydromorphone 1 mg/mL injection syringe (1 mL)] mlc Route: IVP; Site: right antecubital; 00:21 Follow up: BP 147 / 81; Pulse 87 bpm; Resp 18 bpm; Pulse Ox 93% ; Pain 6/10 Adult; mlc Response: Pain is decreased 00:42 Drug: NS 0.9% 1000 ml [sodium chloride 0.9 % intravenous solution] Route: IV; Rate: mlc bolus; Site: right antecubital; 01:53 Follow up: IV Status: Completed infusion mlc 01:53 Drug: NS 0.9% 1000 ml [sodium chloride 0.9 % intravenous solution] Route: IV; Rate: 250 mlc mL/hr; Site: right antecubital; 03:32 Drug: morphine 2 mg [morphine 2 mg/mL intravenous cartridge (1 mL)] Route: IVP; Site: mlc right antecubital; 04:56 Drug: oxyCODONE-acetaminophen 1 tabs [oxycodone-acetaminophen 5 mg-325 mg tablet (1 mlc tabs)] Route: PO; Intake: Order Results: Lab Order: Basic Metabolic Profile; SPEC'M 11/04/16 21:35 Test: GLUCOSE, FASTING; Value: 108; Range: 70-105; Abnormal: Above high normal; Units: MG/DL; Status: F Test: BLOOD UREA NITROGEN; Value: 8; Range: 7-18; Units: MG/DL; Status: F Test: CREATININE FOR GFR; Value: 1.00; Range: 0.70-1.30; Units: MG/DL; Status: F Test: GLOMERULAR FILTRATION RATE; Value: > 60.0; Range: >56; Status: F Test: SODIUM LEVEL; Value: 139; Range: 136-145; Units: MEQ/L; Status: F Test: POTASSIUM SERUM; Value: 3.8; Range: 3.5-5.1; Units: MEQ/L; Status: F Test: CHLORIDE LEVEL; Value: 103; Range: 98-107; Units: MEQ/L; Status: F Test: CARBON DIOXIDE LEVEL; Value: 29; Range: 21-32; Units: MEQ/L; Status: F Test: ANION GAP; Value: 7; Range: 8-16; Abnormal: Below low normal; Units: MEQ/L; Status: F Test: CALCIUM LEVEL; Value: 8.7; Range: 8.5-10.1; Units: MG/DL; Status: F Test Note: ; Units are mL/min/1.73 m2 Chronic Kidney Disease Staging per NKF: Stage I & II GFR >=60 Normal to Mildly Decreased Stage III GFR 30-59 Moderately Decreased Stage IV GFR 15-29 Severely Decreased Stage V GFR <15 Very Little GFR Left ESRD GFR <15 on FINISH SPECIALIST Lab Order: CBC with Diff; SPEC'M 11/04/16 21:35 Test: WHITE BLOOD COUNT; Value: 7.8; Range: 4.0-10.0; Units: K/mm3; Status: F Test: RED BLOOD COUNT; Value: 3.95; Range: 4.30-6.10; Abnormal: Below low normal; Units: M/mm3; Status: F Test: HEMOGLOBIN; Value: 13.2; Range: 14.0-18.0; Abnormal: Below low normal; Units: g/dl; Status: F Test: HEMATOCRIT; Value: 39.4; Range: 42.0-52.0; Abnormal: Below low normal; Units: %; Status: F Test: MEAN CORPUSCULAR VOLUME; Value: 99.9; Range: 80.0-96.0; Abnormal: Above high normal; Units: fl; Status: F Test: MEAN CORPUSCULAR HEMOGLOBIN; Value: 33.4; Range: 27.0-33.0; Abnormal: Above high normal; Units: pg; Status: F Test: MEAN CORPUSCULAR HGB CONC; Value: 33.4; Range: 32.0-36.5; Units: g/dl; Status: F Test: RED CELL DISTRIBUTION WIDTH; Value: 12.8; Range: 11.5-14.5; Units: %; Status: F Test: PLATELET COUNT, AUTOMATED; Value: 207; Range: 150-450; Units: k/mm3; Status: F Test: NEUTROPHILS %; Value: 66.4; Range: 36.0-66.0; Abnormal: Above high normal; Units: %; Status: F Test: LYMPH %; Value: 24.3; Range: 24.0-44.0; Units: %; Status: F Test: MONO %; Value: 5.8; Range: 0.0-5.0; Abnormal: Above high normal; Units: %; Status: F Test: EOS %; Value: 2.0; Range: 0.0-3.0; Units: %; Status: F Test: BASO %; Value: 0.4; Range: 0.0-1.0; Units: %; Status: F Test: LARGE UNSTAINED CELL %; Value: 1.1; Range: 0.0-4.0; Units: %; Status: F Test: NEUTROPHILS #; Value: 5.2; Range: 1.8-7.7; Units: K/mm3; Status: F Test: LYMPH #; Value: 2.0; Range: 1.5-4.5; Units: K/mm3; Status: F Test: MONO #; Value: 0.5; Range: 0.0-0.8; Units: K/mm3; Status: F Test: EOS #; Value: 0.2; Range: 0.0-0.50; Units: K/mm3; Status: F Test: BASO #; Value: 0.0; Range: 0.0-0.2; Units: K/mm3; Status: F Test: LARGE UNSTAINED CELL #; Value: 0.1; Range: 0.0-0.4; Units: K/mm3; Status: F Lab Order: Lipase; SPEC'M 11/04/16 21:35 Test: LIPASE; Value: 404; Range: 73-393; Abnormal: Above high normal; Units: U/L; Status: F Lab Order: Liver Profile; SPEC'M 11/04/16 21:35 Test: AST/SGOT; Value: 25; Range: 15-37; Units: U/L; Status: F Test: ALT/SGPT; Value: 32; Range: 12-78; Units: U/L; Status: F Test: ALKALINE PHOSPHATASE; Value: 80; Range: 45-117; Units: U/L; Status: F Test: BILIRUBIN,TOTAL; Value: 0.7; Range: 0.2-1.0; Units: MG/DL; Status: F Test: BILIRUBIN,DIRECT; Value: 0.1; Range: 0.0-0.2; Units: MG/DL; Status: F Test: TOTAL PROTEIN; Value: 7.2; Range: 6.4-8.2; Units: GM/DL; Status: F Test: ALBUMIN; Value: 3.3; Range: 3.2-5.2; Units: GM/DL; Status: F Test: ALBUMIN/GLOBULIN RATIO; Value: 0.85; Range: 1.00-1.93; Abnormal: Below low normal; Status: F Lab Order: Urinalysis; SPEC'M 11/04/16 22:10 Test: APPEARANCE, URINE; Value: CLEAR; Range: CLEAR; Status: F Test: COLOR, URINE; Value: YELLOW; Range: YELLOW; Status: F Test: PH,URINE; Value: 5.0; Range: 5.0-9.0; Units: UNITS; Status: F Test: SPECIFIC GRAVITY URINE AUTO; Value: 1.011; Range: 1.002-1.035; Status: F Test: PROTEIN, URINE AUTO; Value: NEGATIVE; Range: NEGATIVE; Units: mg/dL; Status: F Test: GLUCOSE, URINE (UA) AUTO; Value: NEGATIVE; Range: NEGATIVE; Units: mg/dL; Status: F Test: KETONE, URINE AUTO; Value: NEGATIVE; Range: NEGATIVE; Units: mg/dL; Status: F Test: UROBILINOGEN, URINE AUTO; Value: 0.2; Range: 0.0-2.0; Units: mg/dL; Status: F Test: BILIRUBIN, URINE AUTO; Value: NEGATIVE; Range: NEGATIVE; Status: F Test: NITRITE, URINE AUTO; Value: NEGATIVE; Range: NEGATIVE; Status: F Test: LEUKOCYTE ESTERASE, URINE AUTO; Value: NEGATIVE; Range: NEGATIVE; Status: F Test: BLOOD, URINE BLOOD; Value: NEGATIVE; Range: NEGATIVE; Status: F Test: WBC, URINE AUTO; Value: 1; Range: 0-3; Units: /HPF; Status: F Test: RBC, URINE AUTO; Value: 1; Range: 0-3; Units: /HPF; Status: F Test: BACTERIA, URINE AUTO; Value: NEGATIVE; Range: NEGATIVE; Status: F Test: SQUAMOUS EPITHELIAL CELL UR AU; Value: 0; Range: 0-6; Units: /HPF; Status: F Test: HYALINE CAST, URINE AUTO; Value: 0; Range: 0-1; Units: /LPF; Status: F Lab Order: CBC WITH DIFFERENTIAL; SPEC'M 11/05/16 06:59 Test: WHITE BLOOD COUNT; Value: 6.7; Range: 4.0-10.0; Units: K/mm3; Status: F Test: RED BLOOD COUNT; Value: 3.57; Range: 4.30-6.10; Abnormal: Below low normal; Units: M/mm3; Status: F Test: HEMOGLOBIN; Value: 12.0; Range: 14.0-18.0; Abnormal: Below low normal; Units: g/dl; Status: F Test: HEMATOCRIT; Value: 35.1; Range: 42.0-52.0; Abnormal: Below low normal; Units: %; Status: F Test: MEAN CORPUSCULAR VOLUME; Value: 98.3; Range: 80.0-96.0; Abnormal: Above high normal; Units: fl; Status: F Test: MEAN CORPUSCULAR HEMOGLOBIN; Value: 33.5; Range: 27.0-33.0; Abnormal: Above high normal; Units: pg; Status: F Test: MEAN CORPUSCULAR HGB CONC; Value: 34.1; Range: 32.0-36.5; Units: g/dl; Status: F Test: RED CELL DISTRIBUTION WIDTH; Value: 11.9; Range: 11.5-14.5; Units: %; Status: F Test: PLATELET COUNT, AUTOMATED; Value: 180; Range: 150-450; Units: k/mm3; Status: F Test: NEUTROPHILS %; Value: 72.5; Range: 36.0-66.0; Abnormal: Above high normal; Units: %; Status: F Test: LYMPH %; Value: 18.5; Range: 24.0-44.0; Abnormal: Below low normal; Units: %; Status: F Test: MONO %; Value: 5.8; Range: 0.0-5.0; Abnormal: Above high normal; Units: %; Status: F Test: EOS %; Value: 1.8; Range: 0.0-3.0; Units: %; Status: F Test: BASO %; Value: 0.1; Range: 0.0-1.0; Units: %; Status: F Test: LARGE UNSTAINED CELL %; Value: 1.2; Range: 0.0-4.0; Units: %; Status: F Test: NEUTROPHILS #; Value: 4.8; Range: 1.8-7.7; Units: K/mm3; Status: F Test: LYMPH #; Value: 1.2; Range: 1.5-4.5; Abnormal: Below low normal; Units: K/mm3; Status: F Test: MONO #; Value: 0.4; Range: 0.0-0.8; Units: K/mm3; Status: F Test: EOS #; Value: 0.1; Range: 0.0-0.50; Units: K/mm3; Status: F Test: BASO #; Value: 0.0; Range: 0.0-0.2; Units: K/mm3; Status: F Test: LARGE UNSTAINED CELL #; Value: 0.1; Range: 0.0-0.4; Units: K/mm3; Status: F Lab Order: COMPLETE COMPHRENSIVE METABOLI; SPEC'M 11/05/16 06:59 Test: GLUCOSE, FASTING; Value: 97; Range: 70-105; Units: MG/DL; Status: F Test: BLOOD UREA NITROGEN; Value: 6; Range: 7-18; Abnormal: Below low normal; Units: MG/DL; Status: F Test: CREATININE FOR GFR; Value: 0.86; Range: 0.70-1.30; Units: MG/DL; Status: F Test: GLOMERULAR FILTRATION RATE; Value: > 60.0; Range: >56; Status: F Test: SODIUM LEVEL; Value: 140; Range: 136-145; Units: MEQ/L; Status: F Test: POTASSIUM SERUM; Value: 3.6; Range: 3.5-5.1; Units: MEQ/L; Status: F Test: CHLORIDE LEVEL; Value: 107; Range: 98-107; Units: MEQ/L; Status: F Test: CARBON DIOXIDE LEVEL; Value: 26; Range: 21-32; Units: MEQ/L; Status: F Test: ANION GAP; Value: 7; Range: 8-16; Abnormal: Below low normal; Units: MEQ/L; Status: F Test: CALCIUM LEVEL; Value: 7.8; Range: 8.5-10.1; Abnormal: Below low normal; Units: MG/DL; Status: F Test: AST/SGOT; Value: 17; Range: 15-37; Units: U/L; Status: F Test: ALT/SGPT; Value: 23; Range: 12-78; Units: U/L; Status: F Test: ALKALINE PHOSPHATASE; Value: 63; Range: 45-117; Units: U/L; Status: F Test: BILIRUBIN,TOTAL; Value: 1.0; Range: 0.2-1.0; Units: MG/DL; Status: F Test: TOTAL PROTEIN; Value: 6.3; Range: 6.4-8.2; Abnormal: Below low normal; Units: GM/DL; Status: F Test: ALBUMIN; Value: 2.8; Range: 3.2-5.2; Abnormal: Below low normal; Units: GM/DL; Status: F Test: ALBUMIN/GLOBULIN RATIO; Value: 0.80; Range: 1.00-1.93; Abnormal: Below low normal; Status: F Test Note: ; Units are mL/min/1.73 m2 Chronic Kidney Disease Staging per NKF: Stage I & II GFR >=60 Normal to Mildly Decreased Stage III GFR 30-59 Moderately Decreased Stage IV GFR 15-29 Severely Decreased Stage V GFR <15 Very Little GFR Left ESRD GFR <15 on FINISH SPECIALIST Lab Order: LIPASE; SPEC'M 11/05/16 06:59 Test: LIPASE; Value: 287; Range: 73-393; Units: U/L; Status: F Lab Order: CARDIAC RISK PROFILE; SPEC'M 11/05/16 06:59 Test: TRIGLYCERIDES LEVEL; Value: 235; Range: <150; Abnormal: Above high normal; Units: MG/DL; Status: F Test: CHOLESTEROL LEVEL; Value: 220; Range: <200; Abnormal: Above high normal; Units: MG/DL; Status: F Test: HDL CHOLESTEROL; Value: 62; Range: >40; Units: MG/DL; Status: F Test: LDL CHOLESTEROL; Value: 111.0; Range: <100; Abnormal: Above high normal; Units: MG/DL; Status: F Test: NON-HDL-C; Value: 158; Units: MG/DL; Status: F Test: CHOLESTEROL RISK RATIO; Value: 3.548; Range: <5; Status: F Radiology Order: CT ABD & PELVIS: IV Contrast Only Test: CT ABD & PELVIS: IV Contrast Only REASON FOR EXAMINATION: Abdomen Pain; ; CLINICAL HISTORY: Abdominal pain.; TECHNIQUE: Multiple axial, sagittal and coronal CT images were obtained through the abdomen and pelvi; s after administration of intravenous contrast material.; COMMENTS:; The liver is mildly enlarged with decreased attenuation without mass or defect. There is no intra or; extrahepatic biliary ductal dilatation. The spleen is normal. The gallbladder is surgically absent. T; he pancreatic head is enlarged and hypodense. Surrounding fat stranding. Surrounding free fluid. Ther; e is no evidence of adrenal mass.; Both kidneys demonstrate prompt and equal nephrograms. The kidneys are normal in size, shape and conf; iguration. There is no evidence of renal or ureteral mass. No renal or ureteral calculi are identifie; d. There is no hydroureter or hydronephrosis.; No evidence for appendicitis. There is no bowel wall thickening. No evidence for small or large ada; l obstruction. There is no evidence of abdominal ascites or lymphadenopathy.; There is no evidence of intrinsic or extrinsic bladder mass. There is no pelvic ascites or lymphadeno; zenia. Mild prostatomegaly. Prostatic calcifications. Diffuse thickening of the wall of the bladder.; Images of the lung bases show no evidence of pleural or parenchymal mass. There are no pleural effusi; ons.; The bony structures are free of lytic or blastic lesions.; IMPRESSION:; Acute pancreatitis. No fluid collection.; Cholecystectomy.; Hepatomegaly with fatty liver infiltration.; Thank you for your kind referral of this patient.; ; Outcome: 00:57 Decision to Hospitalize by Provider. cs11 19:12 Patient left the ED. thomas Signatures: Dispatcher [employer] EDMS Lauren Kemp, RN JENIFFER kmg1 Yasir Dodge, Olga Bustos RN, RN RN jan Lopresti, Mary-Elizabeth, Field Reporter Unit ml3 Batool Robert, [employer] ar3 Chantel Hughes, [employer] kylee Gerry He, DO cs11 Rosalba Acevedo gr2 Rosie Finnegan RN RN Mari Ma Frances, MD MD fg Redder, Kathie klr LUMA
[2016-11-05 22:00] VITALS: BP 131/73
[2016-11-06] MEDS: NS 1,000 ML IV SCH ×3 (01:15→17:06)
[2016-11-06] MEDS: MORPHINE 2 MG/ML 1ML SYRINGE IV PRN ×4 (02:45→19:59)
[2016-11-06 06:00] VITALS: BP 138/80
[2016-11-06] MEDS: OXAZEPAM 10 MG CAP PO SCH ×3 (06:00→21:34)
[2016-11-06 06:07] LABS: BASO % 0.1 % (0.0-1.0); EOS # 0.1 K/mm3 (0.0-0.50); EOS % 1.5 % (0.0-3.0); LARGE UNSTAINED CELL # 0.1 K/mm3 (0.0-0.4); LARGE UNSTAINED CELL % 1.6 % (0.0-4.0); LYMPH # 1.2 K/mm3 (1.5-4.5); LYMPH % 19.5 % (24.0-44.0); MEAN CORPUSCULAR HEMOGLOBIN 33.6 pg (27.0-33.0); MEAN CORPUSCULAR HGB CONC 34.3 g/dl (32.0-36.5); MEAN CORPUSCULAR VOLUME 98.1 fl (80.0-96.0); MONO # 0.4 K/mm3 (0.0-0.8); MONO % 5.9 % (0.0-5.0); NEUTROPHILS # 4.3 K/mm3 (1.8-7.7); NEUTROPHILS % 71.4 % (36.0-66.0); PLATELET COUNT, AUTOMATED 194 k/mm3 (150-450); RED CELL DISTRIBUTION WIDTH 11.5 % (11.5-14.5)
[2016-11-06 06:39] LABS: ALBUMIN 2.5 GM/DL (3.2-5.2); ALBUMIN/GLOBULIN RATIO 0.69 (1.00-1.93); ALKALINE PHOSPHATASE 58 U/L (45-117); ALT/SGPT 19 U/L (12-78); ANION GAP 11 MEQ/L (8-16); AST/SGOT 16 U/L (15-37); BLOOD UREA NITROGEN 7 MG/DL (7-18); CALCIUM LEVEL 7.6 MG/DL (8.5-10.1); CARBON DIOXIDE LEVEL 24 MEQ/L (21-32); CHLORIDE LEVEL 106 MEQ/L (98-107); CREATININE FOR GFR 0.75 MG/DL (0.70-1.30); GLOMERULAR FILTRATION RATE > 60.0 (>56); GLUCOSE, FASTING 71 MG/DL (70-105); POTASSIUM SERUM 3.7 MEQ/L (3.5-5.1); SODIUM LEVEL 141 MEQ/L (136-145); TOTAL PROTEIN 6.1 GM/DL (6.4-8.2)
[2016-11-06] MEDS: MIRALAX *UNIT DOSE* 17GM PACKET PO SCH (08:25)
[2016-11-06] MEDS: SENNA 8.6 MG TAB (SENOKOT) PO SCH ×2 (08:25→21:00)
[2016-11-06] MEDS: SENOKOT S TAB PO SCH ×2 (08:25→21:00)
[2016-11-06] MEDS: PANTOPRAZOLE 40MG TAB (PROTONIX) PO SCH (08:25)
[2016-11-06] MEDS: LOSARTAN 50 MG TAB PO SCH (08:25)
[2016-11-06] MEDS: ATENOLOL 50 MG TAB PO SCH (08:25)
[2016-11-06] MEDS: ENOXAPARIN 40 MG/0.4 ML SYRINGE (J1650) SC SCH (08:27)
[2016-11-06 14:00] VITALS: BP 150/80
--- NOTE | 2016-11-06 14:01 | IPN ---
DATE: 11/06/2016 SUBJECTIVE: This is a 56-year-old male who was seen and examined at bedside. Overnight no reported acute events. Yesterday had Morphine increased due to abdominal pain. Today states his abdominal pain is approximately 60% improved. No fever, chills, vomiting, diarrhea. Has not had any bowel movement since admission. Wants to know if his diet can be advanced. Overnight complained of shooting pain from his groin down which is now resolved. OBJECTIVE: Vital signs: Blood pressure 166/88, heart rate 64, respiration rate 18, pulse ox 93% on room air. Temperature 96.7. General: Patient is lying in bed, comfortable, in no acute distress. He is alert, awake, oriented times three. Pleasant, cooperative. HEENT: Normocephalic, atraumatic. Moist oral mucosa. Neck supple. Trachea midline. Chest: Symmetric chest rise. No accessory muscle use. Breath sounds are clear to auscultation bilaterally. Heart: Regular rate and rhythm, S1, S2 present. Abdomen: Protuberant, mildly tender to palpation most significant right lower quadrant. Bowel sounds present. No rebound. No guarding. No peritoneal signs. : Groin without areas of redness, swelling. Extremities: No pedal edema. Pedal pulses present bilaterally. LABORATORY DATA: WBC 6, hemoglobin 11.5, hematocrit 33.5. Mildly decreased since yesterday. Platelets 194. Neutrophil 71.4, sodium 141, potassium 3.7, chloride 106, carbon dioxide 24, BUN 7, creatinine 0.75. Glucose 71, calcium 7.6. Liver profile normal. Albumin 2.5. Total protein 6.1. Lipase 181 improved compared to admission 4.04. Urine culture without growth. IMPRESSION/PLAN: This patient is a 56-year-old male who presented with abdominal pain, found to have acute pancreatitis and abnormal hCG. 1. Acute pancreatitis. Is improving with IV hydration and pain control with morphine. Levels have normalized. Unfortunately he still continues to have intermittent pain which could be from concerning finding from CT. Will try and advance him to clear liquid diet today. Case was discussed with Dr. Greene. If he is able to take clear liquids, then perhaps the plan is for him to undergo colonoscopy within the next [address] abdomen and pelvis. Will undergo colonoscopy with Dr. Greene in the near future. 3. Alcohol abuse. Refused Serax. Monitor for withdrawals. 4. Hypertension. Continue home medications with hold parameters. Blood pressure is within reasonable range. 5. Chronic back/neck pain. Currently on morphine, baclofen, amitriptyline. 6. Depression. Continue home medication. 7. Constipation. Has not had any bowel movement since admission. Continue stool softeners. 8. Deep venous thrombosis (DVT) prophylaxis. Sequential compression devices (SCD), thromboembolic deterrent stockings (TEDS) and Lovenox. My preceptor for this patient encounter was Dr. Catherine Curtis. The preceptor was physically present in the building during the encounter and was fully available. As needed, all aspects of the patient interview, examination, medical decision making process, and medical care plan development were reviewed and approved by the preceptor. The preceptor is aware and concurs with the plan as stated in the body of this note and will attest to such by his/her cosignature. LUMA
[2016-11-06 14:20] VITALS: BP 150/80
[2016-11-06] MEDS ORDERED: FLEET ENEMA PR PRN (15:15)
[2016-11-06] MEDS ORDERED: GOLYTELY SOLN 4000 ML BTL PO ONE (17:30)
[2016-11-06 22:00] VITALS: BP 158/80
[2016-11-07] VITALS (10 sets, daily range): BP systolic 128–170; BP diastolic 68–96
[2016-11-07] MEDS: BACLOFEN 10 MG TAB PO PRN (00:19)
[2016-11-07] MEDS ORDERED: GOLYTELY SOLN 4000 ML BTL PO ONE (05:00)
[2016-11-07] MEDS: OXAZEPAM 10 MG CAP PO SCH ×3 (05:48→22:00)
[2016-11-07] MEDS: MORPHINE 2 MG/ML 1ML SYRINGE IV PRN ×5 (05:49→20:14)
[2016-11-07 06:53] LABS: BASO % 0.2 % (0.0-1.0); EOS # 0.1 K/mm3 (0.0-0.50); EOS % 2.1 % (0.0-3.0); LARGE UNSTAINED CELL # 0.1 K/mm3 (0.0-0.4); LARGE UNSTAINED CELL % 1.9 % (0.0-4.0); LYMPH # 1.1 K/mm3 (1.5-4.5); LYMPH % 26.5 % (24.0-44.0); MEAN CORPUSCULAR HEMOGLOBIN 33.9 pg (27.0-33.0); MEAN CORPUSCULAR HGB CONC 34.9 g/dl (32.0-36.5); MEAN CORPUSCULAR VOLUME 97.1 fl (80.0-96.0); MONO # 0.3 K/mm3 (0.0-0.8); MONO % 6.1 % (0.0-5.0); NEUTROPHILS # 2.6 K/mm3 (1.8-7.7); NEUTROPHILS % 63.1 % (36.0-66.0); PLATELET COUNT, AUTOMATED 218 k/mm3 (150-450); RED CELL DISTRIBUTION WIDTH 11.5 % (11.5-14.5); WHITE BLOOD COUNT 4.2 K/mm3 (4.0-10.0)
[2016-11-07 07:13] LABS: ALBUMIN 2.6 GM/DL (3.2-5.2); ALKALINE PHOSPHATASE 66 U/L (45-117); ALT/SGPT 19 U/L (12-78); ANION GAP 9 MEQ/L (8-16); AST/SGOT 16 U/L (15-37); BILIRUBIN,TOTAL 0.3 MG/DL (0.2-1.0); BLOOD UREA NITROGEN 3 MG/DL (7-18); CALCIUM LEVEL 8.2 MG/DL (8.5-10.1); CARBON DIOXIDE LEVEL 26 MEQ/L (21-32); CHLORIDE LEVEL 107 MEQ/L (98-107); CREATININE FOR GFR 0.85 MG/DL (0.70-1.30); GLOMERULAR FILTRATION RATE > 60.0 (>56); GLUCOSE, FASTING 145 MG/DL (70-105); SODIUM LEVEL 142 MEQ/L (136-145); TOTAL PROTEIN 6.3 GM/DL (6.4-8.2)
[2016-11-07] MEDS: ENOXAPARIN 40 MG/0.4 ML SYRINGE (J1650) SC SCH (08:12)
[2016-11-07] MEDS: SENOKOT S TAB PO SCH (08:15)
[2016-11-07] MEDS: SENNA 8.6 MG TAB (SENOKOT) PO SCH (08:15)
[2016-11-07] MEDS: MIRALAX *UNIT DOSE* 17GM PACKET PO SCH (08:15)
[2016-11-07] MEDS: NS 1,000 ML IV SCH ×3 (08:23→23:51)
[2016-11-07] MEDS: ATENOLOL 50 MG TAB PO SCH (08:26)
[2016-11-07] MEDS: LOSARTAN 50 MG TAB PO SCH (08:26)
[2016-11-07] MEDS: CitaloPRAM (CeleXA) 20 MG TAB PO SCH (09:00)
[2016-11-07] MEDS: PANTOPRAZOLE 40MG TAB (PROTONIX) PO SCH (09:00)
[2016-11-07] MEDS: amLODIPine 5 MG TAB PO SCH (09:29)
--- NOTE | 2016-11-07 14:03 | IPN ---
DATE: 11/07/2016 SUBJECTIVE: This is a 56-year-old male who is seen and examined at bedside. Yesterday his diet was advanced to clears but he started having abdominal pain immediately after eating, however he was able to tolerate the gallon of GoLYTELY. Denies any chest pain, shortness of breath, nausea, fevers, chills, emesis. Had some nausea. OBJECTIVE: VITAL SIGNS: Blood pressure 176/92, heart rate 60, temperature 97, respiration rate 18, pulse oximetry 97% on room air. Intake and output last 24 hours: 2170 and 400. No bowel movements have been documented, though he reported having loose bowel movements overnight after given the GoLYTELY. GENERAL: Patient is lying in bed, comfortable, in no acute distress. He is alert, awake, oriented times three, pleasant and cooperative. HEENT: Normocephalic, atraumatic. Moist oral mucosa. NECK: Supple, trachea midline. CHEST: Symmetric chest rise, no accessory muscle use. Breath sounds were clear to auscultation bilaterally. HEART: Regular rate and rhythm, S1, S2, present. ABDOMEN: Soft. Less tender to palpation today compared to yesterday. No guarding, no rebound. EXTREMITIES: No pedal edema. Pedal pulses present bilaterally. GENITOURINARY (): Hernia was not appreciated on exam today. LABORATORY DATA: WBC 4.2, hemoglobin 11.5, hematocrit 33.1, platelets 218. Sodium 142, potassium 4, chloride 107, carbon dioxide 26, BUN 3, creatinine 0.85, glucose 145, calcium 8.2, total bilirubin 0.3, lipase 228. IMPRESSION AND PLAN: Mr. Brenner is a 56-year-old male who presented with abdominal pain, found to have pancreatitis. 1. Acute pancreatitis, resolved. Continue pain control. Diet was advanced yesterday, however he did report some abdominal pain with food. Continue to monitor symptoms. Lipase continues to be within normal limits. His pancreatitis could be secondary to fenofibrate. We will consider starting him on Lovaza at discharge. 2. Abdominal pain, likely secondary to a combination of pancreatitis and/or abnormal finding on CT. He is undergoing a colonoscopy today with Dr. Greene afternoon to further evaluate for reason for his abnormal finding on CT. 3. Hypertension. Continue atenolol 50 mg by mouth daily. Norvasc 5 mg by mouth daily was started today for better control. 4. Alcohol abuse. Refused Serax. 5. Chronic back and neck pain. Continue morphine, baclofen, and amitriptyline. 6. Depression and anxiety. Continue home dose Celexa. 7. Gastroesophageal reflux disease (GERD). Continue Protonix 40 mg by mouth daily. 8. Constipation. Continue Senokot one tablet by mouth twice a day, MiraLax, and Fleet enema. 9. Deep venous thrombosis (DVT) prophylaxis. Sequential compression device (SCD), thromboembolic deterrents (TEDs), and Lovenox. My preceptor for this patient encounter was Dr. Praful Tan. The preceptor was physically present in the building during the encounter and was fully available. As needed, all aspects of the patient interview, examination, medical decision making process, and medical care plan development were reviewed and approved by the preceptor. The preceptor is aware and concurs with the plan as stated in the body of this note and will attest to such by his/her cosignature. LUMA
[2016-11-07] MEDS ORDERED: SODIUM CHLORIDE 0.9% 1000 ML IV ONE (15:30)
[2016-11-07 17:19] LABS: ANION GAP 5 MEQ/L (8-16); BLOOD UREA NITROGEN 3 MG/DL (7-18); CALCIUM LEVEL 7.9 MG/DL (8.5-10.1); CARBON DIOXIDE LEVEL 29 MEQ/L (21-32); CHLORIDE LEVEL 109 MEQ/L (98-107); CREATININE FOR GFR 0.71 MG/DL (0.70-1.30); GLOMERULAR FILTRATION RATE > 60.0 (>56); GLUCOSE, FASTING 96 MG/DL (70-105); MAGNESIUM LEVEL 2.2 MG/DL (1.8-2.4); POTASSIUM SERUM 4.2 MEQ/L (3.5-5.1); SODIUM LEVEL 143 MEQ/L (136-145)
--- NOTE | 2016-11-07 20:13 | EDDOCDS ---
Nurse's Notes [facility] Name: Joao Brenner Age: 56 yrs Sex: Male : 1960 Arrival Date: 11/04/2016 Time: 20:57 Bed Admit Hold Private MD: Aashish Jane H. Diagnosis: Alcohol-induced chronic pancreatitis Presentation: 11/04 21:00 Presenting complaint: Patient states: Pain entire abdomen. Was seen here Nov 01 for kmg1 same and Diagnosed with masses in abdomen. Unable to bear the pain now. Adult Sepsis Screening: The patient does not have new or worsening altered mentation. Patient's respiratory rate is less than 22. Systolic blood pressure is greater than 100. Patient has a qSOFA score of 0- Negative Sepsis Screen. Suicide/Homicide risk assessment- the patient denies having any suicidal and/or homicidal ideations and does not present with any other emotional, behavioral or mental health complaints. Status: Patient is not a government service executive or dependent. Transition of care: patient was not received from another setting of care. 21:00 Acuity: [place] Level 3 km 21:00 Method Of Arrival: Walkin/Carried/Asstd km Triage Assessment: 21:06 General: Appears ill, uncomfortable, Behavior is appropriate for age. Pain: Location: [facility] abdomen Pain currently is 10 out of 10 on a pain scale. Quality of pain is described as sharp, Is continuous. HIV screening NA for this visit Offered previously. GI: Reports lower abdominal pain, upper abdominal pain, nausea, vomiting. Historical: - Allergies: No known drug Allergies; - Home Meds: 1. amitriptyline 50 mg Oral tab 1 tab once daily (Last dose: 11/04/2016) 2. atenolol 50 mg Oral tab once daily (Last dose: 11/04/2016) 3. baclofen 20 mg Oral tab daily (Last dose: 11/04/2016) 4. Citalopram 30 mg Oral once daily (Last dose: 11/04/2016) 5. losartan 50 mg oral tab 1 tab once daily (Last dose: 11/04/2016) 6. Protonix 40 mg oral TbEC 1 tab once daily (Last dose: 11/04/2016) 7. 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 - Family history: Not pertinent. - : The pt / caregiver states he / she is not on anticoagulants. Home medication list is obtained from the patient, [employer] import data. - Exposure Risk Screening:: None identified. Screenin:14 Screening information is obtained from the patient. Fall risk: No risks identified. mlc Assistance ADL's: requires no assistance with activities of daily living. Abuse/DV Screen: The patient / caregiver reports he/she is: not in a situation that causes fear, pain or injury. Nutritional screening: No deficits noted. Advance Directives: There is no active DNR order. home support is adequate. Assessment: 22:14 General: Appears in no apparent distress, uncomfortable, Behavior is anxious, mlc cooperative. Pain: Location: right upper quadrant and left upper quadrant Pain currently is 10 out of 10 on a pain scale. Pain radiates to mid back area. Neurological: Level of Consciousness is awake, alert, obeys commands, Oriented to person, place, time. Respiratory: Airway is patent Respiratory effort is even, unlabored, Respiratory pattern is regular. GI: Abdomen is non- distended Bowel sounds present X 4 quads. Abd is soft X 4 quads Abd is tender to palpation in right upper quadrant and left upper quadrant. GI: Reports nausea, vomiting, intolerance of food. Derm: Skin is pink, warm & dry. 22:50 Reassessment: Patient appears in no apparent distress at this time. Patient states mlc symptoms have not improved. no pain relief, Dr. Sanchez made aware. resp easy/unlabored. pt medicated per order. 11/05 00:02 Reassessment: Patient appears in no apparent distress at this time. pt medicated per mlc order. resp easy/unlabored. . 00:21 Reassessment: Patient appears in no apparent distress at this time. Patient states mlc feeling better. 01:53 Reassessment: Patient appears in no apparent distress at this time. IV fluids infusing mlc per order. resp easy/unlabored. . 02:30 Reassessment: Patient appears in no apparent distress at this time. pt resting in bed. mlc no changes since prior. 03:33 Reassessment: Patient appears in no apparent distress at this time. pt medicated per [facility] order. IV fluids infusing per order. resp easy/unlabored. . 04:56 General: Appears in no apparent distress, Behavior is cooperative, pt medicated per mlc order. Neurological: Level of Consciousness is awake, alert, Oriented to person, place, time. Respiratory: Airway is patent Respiratory effort is even, unlabored, Respiratory pattern is regular. Vital Signs: 11/04 20:58 BP 159 / 85; Pulse 79; Resp 20 S; Temp 98.1(O); Pulse Ox 100% on R/A; Weight 86.18 kg gr2 (R); Height 5 ft. 10 in. (177.80 cm) (R); Pain 9/10; 22:42 Pulse 68 MON; Pulse Ox 96% ; mlc 22:42 BP 174 / 92 (auto/); mlc 22:50 BP 174 / 92; Pain 10/10; mlc 23:02 BP 154 / 84 (auto/); mlc 23:02 Pulse 70 MON; Pulse Ox 91% ; mlc 23:22 BP 148 / 86 (auto/); mlc 23:22 Pulse 78 MON; Pulse Ox 97% ; mlc 23:22 BP 154 / 84; Pulse 84; Pulse Ox 96% ; Pain 7/10; mlc 23:42 BP 138 / 82 (auto/); mlc 23:42 Pulse 70 MON; Pulse Ox 92% ; mlc 11/05 00:02 Pulse 78 MON; Pulse Ox 95% ; mlc 00:02 BP 147 / 81 (auto/); mlc 00:21 BP 147 / 81; Pulse 87; Resp 18; Pulse Ox 93% ; Pain 6/10; mlc 00:22 Pulse 74 MON; Pulse Ox 93% ; mlc 00:22 BP 131 / 73 (auto/); mlc 00:42 Pulse 82 MON; Pulse Ox 96% ; mlc 00:42 BP 142 / 82 (auto/); mlc 01:02 Pulse 80 MON; Pulse Ox 96% ; mlc 01:02 BP 144 / 90 (auto/); mlc 01:22 Pulse 74 MON; Pulse Ox 94% ; mlc 01:22 BP 156 / 82 (auto/); mlc 01:42 BP 136 / 76 (auto/); mlc 01:42 Pulse 76 MON; Pulse Ox 96% ; mlc 02:02 Pulse 78 MON; Pulse Ox 97% ; mlc 02:02 BP 147 / 81 (auto/); mlc 02:22 Pulse 76 MON; Pulse Ox 91% ; mlc 02:22 BP 129 / 80 (auto/); mlc 02:42 Pulse 82 MON; Pulse Ox 93% ; mlc 02:42 BP 145 / 78 (auto/); mlc 03:02 Pulse 82 MON; Pulse Ox 95% ; mlc 03:02 BP 157 / 78 (auto/); mlc 03:22 BP 175 / 97 (auto/); mlc 03:22 Pulse 76 MON; Pulse Ox 94% ; mlc 03:42 Pulse 74 MON; Pulse Ox 93% ; mlc 03:42 BP 145 / 80 (auto/); mlc 04:02 Pulse 74 MON; Pulse Ox 95% ; mlc 04:02 BP 150 / 81 (auto/); mlc 04:22 BP 157 / 82 (auto/); mlc 04:33 Pulse 66 MON; Pulse Ox 93% ; mlc 04:42 Pulse 68 MON; Pulse Ox 93% ; mlc 04:42 BP 133 / 82 (auto/); mlc 04:58 Resp 20; Temp 99.0(TE); mlc 11/04 20:58 Body Mass Index 27.26 (86.18 kg, 177.80 cm) gr2 Vitals: 11/04 20:58 Log In Time: November 04, 2016 at 20:58. gr2 ED Course: 20:57 Patient visited by Rosalba Acevedo. gr2 20:57 Patient moved to Waiting gr2 20:58 Aashish Jane is Private Physician. gr2 20:59 Patient visited by Rosalba Acevedo. gr2 20:59 Patient moved to Pre RCE gr2 21:01 Triage Initiated kmg1 21:12 Rosie Finnegan,RN is Primary Nurse. kmg1 21:12 Patient moved to 11 kmg1 21:20 Peg Sanchez MD is Attending Physician. fg 21:37 Basic Metabolic Profile Sent. mlc 21:37 CBC with Diff Sent. mlc 21:37 Lipase Sent. mlc 21:37 Liver Profile Sent. mlc 21:50 Patient visited by Peg Sanchez MD. fg 22:14 The patient / caregiver is instructed regarding the plan of care and ED course. mlc 22:14 Urinalysis Sent. mlc 22:14 Urine Culture Sent. [facility] 22:14 Inserted saline lock: 20 gauge in right antecubital area and blood collected. The [facility] patient tolerated the procedure well. 22:16 Patient visited by Rosie Finnegan RN. [facility] 22:51 Patient visited by Rosie Finnegan RN. [facility] 23:23 Patient visited by Rosie Finnegan RN. [facility] 23:56 Attending Physician role handed off by Peg Sanchez MD cs11 23:56 Gerry He DO is Attending Physician. [facility] 11/05 00:03 Patient visited by Rosie Finnegan RN. [facility] 00:22 Patient visited by Rosie Finnegan RN. [facility] 00:37 CT ABD & PELVIS: IV Contrast Only Returned. EDMS 00:57 Krunal Davenport MD is Hospitalizing Provider. [facility] 01:18 [facility] Payment Agreement was scanned into [employer] and attached to record. [facility] 01:54 Patient visited by Rosie Finnegan RN. [facility] 03:28 Written Provider Order was scanned into [employer] and attached to record. ml3 03:34 Patient visited by Rosie Finnegan RN. mlc 04:52 Patient moved to I kylee 04:58 Patient visited by Rosie Finnegan RN. [facility] 06:43 Patient moved to Admit Hold oct 07:11 Primary Nurse role handed off by Rosie Finnegan RN ar3 18:37 T-Sheet-- Draft Copy was scanned into [employer] and attached to record. r 11/06 15:34 Other: PROGRESS NOTE was scanned into [employer] and attached to record. gb Administered Medications: 11/04 22:13 Drug: morphine 4 mg [morphine 4 mg/mL intravenous cartridge (1 mL)] Route: IVP; Site: [facility] right antecubital; 22:50 Follow up: BP 174 / 92; Pain 10/10 Adult; Response: No significant change. [facility] 22:13 Drug: Ondansetron 4 mg [ondansetron HCl 2 mg/mL intravenous solution (2 mL)] Route: mlc IVP; Site: right antecubital; 23:22 Follow up: Response: Nausea is decreased [facility] 22:50 Drug: Dilaudid - HYDROmorphone 1 mg [hydromorphone 1 mg/mL injection syringe (1 mL)] mlc Route: IVP; Site: right antecubital; 23:22 Follow up: BP 154 / 84; Pulse 84 bpm; Pulse Ox 96% ; Pain 7/10 Adult; Response: Pain is mlc decreased; pt states he does not need additional medication at this time. 11/05 00:02 Drug: Dilaudid - HYDROmorphone 1 mg [hydromorphone 1 mg/mL injection syringe (1 mL)] mlc Route: IVP; Site: right antecubital; 00:21 Follow up: BP 147 / 81; Pulse 87 bpm; Resp 18 bpm; Pulse Ox 93% ; Pain 6/10 Adult; mlc Response: Pain is decreased 00:42 Drug: NS 0.9% 1000 ml [sodium chloride 0.9 % intravenous solution] Route: IV; Rate: mlc bolus; Site: right antecubital; 01:53 Follow up: IV Status: Completed infusion mlc 01:53 Drug: NS 0.9% 1000 ml [sodium chloride 0.9 % intravenous solution] Route: IV; Rate: 250 mlc mL/hr; Site: right antecubital; 03:32 Drug: morphine 2 mg [morphine 2 mg/mL intravenous cartridge (1 mL)] Route: IVP; Site: mlc right antecubital; 04:56 Drug: oxyCODONE-acetaminophen 1 tabs [oxycodone-acetaminophen 5 mg-325 mg tablet (1 mlc tabs)] Route: PO; Intake: Order Results: Lab Order: Basic Metabolic Profile; SPEC'M 11/04/16 21:35 Test: GLUCOSE, FASTING; Value: 108; Range: 70-105; Abnormal: Above high normal; Units: MG/DL; Status: F Test: BLOOD UREA NITROGEN; Value: 8; Range: 7-18; Units: MG/DL; Status: F Test: CREATININE FOR GFR; Value: 1.00; Range: 0.70-1.30; Units: MG/DL; Status: F Test: GLOMERULAR FILTRATION RATE; Value: > 60.0; Range: >56; Status: F Test: SODIUM LEVEL; Value: 139; Range: 136-145; Units: MEQ/L; Status: F Test: POTASSIUM SERUM; Value: 3.8; Range: 3.5-5.1; Units: MEQ/L; Status: F Test: CHLORIDE LEVEL; Value: 103; Range: 98-107; Units: MEQ/L; Status: F Test: CARBON DIOXIDE LEVEL; Value: 29; Range: 21-32; Units: MEQ/L; Status: F Test: ANION GAP; Value: 7; Range: 8-16; Abnormal: Below low normal; Units: MEQ/L; Status: F Test: CALCIUM LEVEL; Value: 8.7; Range: 8.5-10.1; Units: MG/DL; Status: F Test Note: ; Units are mL/min/1.73 m2 Chronic Kidney Disease Staging per NKF: Stage I & II GFR >=60 Normal to Mildly Decreased Stage III GFR 30-59 Moderately Decreased Stage IV GFR 15-29 Severely Decreased Stage V GFR <15 Very Little GFR Left ESRD GFR <15 on [employer] Lab Order: CBC with Diff; SPEC'M 11/04/16 21:35 Test: WHITE BLOOD COUNT; Value: 7.8; Range: 4.0-10.0; Units: K/mm3; Status: F Test: RED BLOOD COUNT; Value: 3.95; Range: 4.30-6.10; Abnormal: Below low normal; Units: M/mm3; Status: F Test: HEMOGLOBIN; Value: 13.2; Range: 14.0-18.0; Abnormal: Below low normal; Units: g/dl; Status: F Test: HEMATOCRIT; Value: 39.4; Range: 42.0-52.0; Abnormal: Below low normal; Units: %; Status: F Test: MEAN CORPUSCULAR VOLUME; Value: 99.9; Range: 80.0-96.0; Abnormal: Above high normal; Units: fl; Status: F Test: MEAN CORPUSCULAR HEMOGLOBIN; Value: 33.4; Range: 27.0-33.0; Abnormal: Above high normal; Units: pg; Status: F Test: MEAN CORPUSCULAR HGB CONC; Value: 33.4; Range: 32.0-36.5; Units: g/dl; Status: F Test: RED CELL DISTRIBUTION WIDTH; Value: 12.8; Range: 11.5-14.5; Units: %; Status: F Test: PLATELET COUNT, AUTOMATED; Value: 207; Range: 150-450; Units: k/mm3; Status: F Test: NEUTROPHILS %; Value: 66.4; Range: 36.0-66.0; Abnormal: Above high normal; Units: %; Status: F Test: LYMPH %; Value: 24.3; Range: 24.0-44.0; Units: %; Status: F Test: MONO %; Value: 5.8; Range: 0.0-5.0; Abnormal: Above high normal; Units: %; Status: F Test: EOS %; Value: 2.0; Range: 0.0-3.0; Units: %; Status: F Test: BASO %; Value: 0.4; Range: 0.0-1.0; Units: %; Status: F Test: LARGE UNSTAINED CELL %; Value: 1.1; Range: 0.0-4.0; Units: %; Status: F Test: NEUTROPHILS #; Value: 5.2; Range: 1.8-7.7; Units: K/mm3; Status: F Test: LYMPH #; Value: 2.0; Range: 1.5-4.5; Units: K/mm3; Status: F Test: MONO #; Value: 0.5; Range: 0.0-0.8; Units: K/mm3; Status: F Test: EOS #; Value: 0.2; Range: 0.0-0.50; Units: K/mm3; Status: F Test: BASO #; Value: 0.0; Range: 0.0-0.2; Units: K/mm3; Status: F Test: LARGE UNSTAINED CELL #; Value: 0.1; Range: 0.0-0.4; Units: K/mm3; Status: F Lab Order: Lipase; SPEC'M 11/04/16 21:35 Test: LIPASE; Value: 404; Range: 73-393; Abnormal: Above high normal; Units: U/L; Status: F Lab Order: Liver Profile; SPEC'M 11/04/16 21:35 Test: AST/SGOT; Value: 25; Range: 15-37; Units: U/L; Status: F Test: ALT/SGPT; Value: 32; Range: 12-78; Units: U/L; Status: F Test: ALKALINE PHOSPHATASE; Value: 80; Range: 45-117; Units: U/L; Status: F Test: BILIRUBIN,TOTAL; Value: 0.7; Range: 0.2-1.0; Units: MG/DL; Status: F Test: BILIRUBIN,DIRECT; Value: 0.1; Range: 0.0-0.2; Units: MG/DL; Status: F Test: TOTAL PROTEIN; Value: 7.2; Range: 6.4-8.2; Units: GM/DL; Status: F Test: ALBUMIN; Value: 3.3; Range: 3.2-5.2; Units: GM/DL; Status: F Test: ALBUMIN/GLOBULIN RATIO; Value: 0.85; Range: 1.00-1.93; Abnormal: Below low normal; Status: F Lab Order: Urinalysis; SPEC'M 11/04/16 22:10 Test: APPEARANCE, URINE; Value: CLEAR; Range: CLEAR; Status: F Test: COLOR, URINE; Value: YELLOW; Range: YELLOW; Status: F Test: PH,URINE; Value: 5.0; Range: 5.0-9.0; Units: UNITS; Status: F Test: SPECIFIC GRAVITY URINE AUTO; Value: 1.011; Range: 1.002-1.035; Status: F Test: PROTEIN, URINE AUTO; Value: NEGATIVE; Range: NEGATIVE; Units: mg/dL; Status: F Test: GLUCOSE, URINE (UA) AUTO; Value: NEGATIVE; Range: NEGATIVE; Units: mg/dL; Status: F Test: KETONE, URINE AUTO; Value: NEGATIVE; Range: NEGATIVE; Units: mg/dL; Status: F Test: UROBILINOGEN, URINE AUTO; Value: 0.2; Range: 0.0-2.0; Units: mg/dL; Status: F Test: BILIRUBIN, URINE AUTO; Value: NEGATIVE; Range: NEGATIVE; Status: F Test: NITRITE, URINE AUTO; Value: NEGATIVE; Range: NEGATIVE; Status: F Test: LEUKOCYTE ESTERASE, URINE AUTO; Value: NEGATIVE; Range: NEGATIVE; Status: F Test: BLOOD, URINE BLOOD; Value: NEGATIVE; Range: NEGATIVE; Status: F Test: WBC, URINE AUTO; Value: 1; Range: 0-3; Units: /HPF; Status: F Test: RBC, URINE AUTO; Value: 1; Range: 0-3; Units: /HPF; Status: F Test: BACTERIA, URINE AUTO; Value: NEGATIVE; Range: NEGATIVE; Status: F Test: SQUAMOUS EPITHELIAL CELL UR AU; Value: 0; Range: 0-6; Units: /HPF; Status: F Test: HYALINE CAST, URINE AUTO; Value: 0; Range: 0-1; Units: /LPF; Status: F Lab Order: CBC WITH DIFFERENTIAL; SPEC'M 11/05/16 06:59 Test: WHITE BLOOD COUNT; Value: 6.7; Range: 4.0-10.0; Units: K/mm3; Status: F Test: RED BLOOD COUNT; Value: 3.57; Range: 4.30-6.10; Abnormal: Below low normal; Units: M/mm3; Status: F Test: HEMOGLOBIN; Value: 12.0; Range: 14.0-18.0; Abnormal: Below low normal; Units: g/dl; Status: F Test: HEMATOCRIT; Value: 35.1; Range: 42.0-52.0; Abnormal: Below low normal; Units: %; Status: F Test: MEAN CORPUSCULAR VOLUME; Value: 98.3; Range: 80.0-96.0; Abnormal: Above high normal; Units: fl; Status: F Test: MEAN CORPUSCULAR HEMOGLOBIN; Value: 33.5; Range: 27.0-33.0; Abnormal: Above high normal; Units: pg; Status: F Test: MEAN CORPUSCULAR HGB CONC; Value: 34.1; Range: 32.0-36.5; Units: g/dl; Status: F Test: RED CELL DISTRIBUTION WIDTH; Value: 11.9; Range: 11.5-14.5; Units: %; Status: F Test: PLATELET COUNT, AUTOMATED; Value: 180; Range: 150-450; Units: k/mm3; Status: F Test: NEUTROPHILS %; Value: 72.5; Range: 36.0-66.0; Abnormal: Above high normal; Units: %; Status: F Test: LYMPH %; Value: 18.5; Range: 24.0-44.0; Abnormal: Below low normal; Units: %; Status: F Test: MONO %; Value: 5.8; Range: 0.0-5.0; Abnormal: Above high normal; Units: %; Status: F Test: EOS %; Value: 1.8; Range: 0.0-3.0; Units: %; Status: F Test: BASO %; Value: 0.1; Range: 0.0-1.0; Units: %; Status: F Test: LARGE UNSTAINED CELL %; Value: 1.2; Range: 0.0-4.0; Units: %; Status: F Test: NEUTROPHILS #; Value: 4.8; Range: 1.8-7.7; Units: K/mm3; Status: F Test: LYMPH #; Value: 1.2; Range: 1.5-4.5; Abnormal: Below low normal; Units: K/mm3; Status: F Test: MONO #; Value: 0.4; Range: 0.0-0.8; Units: K/mm3; Status: F Test: EOS #; Value: 0.1; Range: 0.0-0.50; Units: K/mm3; Status: F Test: BASO #; Value: 0.0; Range: 0.0-0.2; Units: K/mm3; Status: F Test: LARGE UNSTAINED CELL #; Value: 0.1; Range: 0.0-0.4; Units: K/mm3; Status: F Lab Order: COMPLETE COMPHRENSIVE METABOLI; SPEC'M 11/05/16 06:59 Test: GLUCOSE, FASTING; Value: 97; Range: 70-105; Units: MG/DL; Status: F Test: BLOOD UREA NITROGEN; Value: 6; Range: 7-18; Abnormal: Below low normal; Units: MG/DL; Status: F Test: CREATININE FOR GFR; Value: 0.86; Range: 0.70-1.30; Units: MG/DL; Status: F Test: GLOMERULAR FILTRATION RATE; Value: > 60.0; Range: >56; Status: F Test: SODIUM LEVEL; Value: 140; Range: 136-145; Units: MEQ/L; Status: F Test: POTASSIUM SERUM; Value: 3.6; Range: 3.5-5.1; Units: MEQ/L; Status: F Test: CHLORIDE LEVEL; Value: 107; Range: 98-107; Units: MEQ/L; Status: F Test: CARBON DIOXIDE LEVEL; Value: 26; Range: 21-32; Units: MEQ/L; Status: F Test: ANION GAP; Value: 7; Range: 8-16; Abnormal: Below low normal; Units: MEQ/L; Status: F Test: CALCIUM LEVEL; Value: 7.8; Range: 8.5-10.1; Abnormal: Below low normal; Units: MG/DL; Status: F Test: AST/SGOT; Value: 17; Range: 15-37; Units: U/L; Status: F Test: ALT/SGPT; Value: 23; Range: 12-78; Units: U/L; Status: F Test: ALKALINE PHOSPHATASE; Value: 63; Range: 45-117; Units: U/L; Status: F Test: BILIRUBIN,TOTAL; Value: 1.0; Range: 0.2-1.0; Units: MG/DL; Status: F Test: TOTAL PROTEIN; Value: 6.3; Range: 6.4-8.2; Abnormal: Below low normal; Units: GM/DL; Status: F Test: ALBUMIN; Value: 2.8; Range: 3.2-5.2; Abnormal: Below low normal; Units: GM/DL; Status: F Test: ALBUMIN/GLOBULIN RATIO; Value: 0.80; Range: 1.00-1.93; Abnormal: Below low normal; Status: F Test Note: ; Units are mL/min/1.73 m2 Chronic Kidney Disease Staging per NKF: Stage I & II GFR >=60 Normal to Mildly Decreased Stage III GFR 30-59 Moderately Decreased Stage IV GFR 15-29 Severely Decreased Stage V GFR <15 Very Little GFR Left ESRD GFR <15 on [employer] Lab Order: LIPASE; SPEC'M 11/05/16 06:59 Test: LIPASE; Value: 287; Range: 73-393; Units: U/L; Status: F Lab Order: CARDIAC RISK PROFILE; SPEC'M 11/05/16 06:59 Test: TRIGLYCERIDES LEVEL; Value: 235; Range: <150; Abnormal: Above high normal; Units: MG/DL; Status: F Test: CHOLESTEROL LEVEL; Value: 220; Range: <200; Abnormal: Above high normal; Units: MG/DL; Status: F Test: HDL CHOLESTEROL; Value: 62; Range: >40; Units: MG/DL; Status: F Test: LDL CHOLESTEROL; Value: 111.0; Range: <100; Abnormal: Above high normal; Units: MG/DL; Status: F Test: NON-HDL-C; Value: 158; Units: MG/DL; Status: F Test: CHOLESTEROL RISK RATIO; Value: 3.548; Range: <5; Status: F Radiology Order: CT ABD & PELVIS: IV Contrast Only Test: CT ABD & PELVIS: IV Contrast Only REASON FOR EXAMINATION: Abdomen Pain; ; CLINICAL HISTORY: Abdominal pain.; TECHNIQUE: Multiple axial, sagittal and coronal CT images were obtained through the abdomen and pelvi; s after administration of intravenous contrast material.; COMMENTS:; The liver is mildly enlarged with decreased attenuation without mass or defect. There is no intra or; extrahepatic biliary ductal dilatation. The spleen is normal. The gallbladder is surgically absent. T; he pancreatic head is enlarged and hypodense. Surrounding fat stranding. Surrounding free fluid. Ther; e is no evidence of adrenal mass.; Both kidneys demonstrate prompt and equal nephrograms. The kidneys are normal in size, shape and conf; iguration. There is no evidence of renal or ureteral mass. No renal or ureteral calculi are identifie; d. There is no hydroureter or hydronephrosis.; No evidence for appendicitis. There is no bowel wall thickening. No evidence for small or large ada; l obstruction. There is no evidence of abdominal ascites or lymphadenopathy.; There is no evidence of intrinsic or extrinsic bladder mass. There is no pelvic ascites or lymphadeno; zenia. Mild prostatomegaly. Prostatic calcifications. Diffuse thickening of the wall of the bladder.; Images of the lung bases show no evidence of pleural or parenchymal mass. There are no pleural effusi; ons.; The bony structures are free of lytic or blastic lesions.; IMPRESSION:; Acute pancreatitis. No fluid collection.; Cholecystectomy.; Hepatomegaly with fatty liver infiltration.; Thank you for your kind referral of this patient.; ; Outcome: 00:57 Decision to Hospitalize by Provider. cs11 19:12 Patient left the ED. thomas Signatures: Dispatcher [employer] EDMS Lauren Kemp RN RN kmg1 Yasir Dodge RN RN bcj Newman, Jill New, RN RN jan Barnhardt, Gloria, Reg Reg Surendra Álvarez, Crusher Operator Unit ml3 Batool Robert, AIRPLANE FUELER AIRPLANE FUELER ar3 Ellen, Chantel, AIRPLANE FUELER AIRPLANE FUELER kylee Neri, Gerry, DO DO cs11 Rosalba Acevedo gr2 Rosie Finnegan,Mari Hager RN, Frances, MD MD fg Redder, Kathie klr Chart Complete MTDD
--- NOTE | 2016-11-07 20:13 | EDDOCDS ---
Physician Documentation [facility] Name: Joao Brenner Age: 56 yrs Sex: Male : 1960 Arrival Date: 11/04/2016 Time: 20:57 Bed Admit Hold Private MD: Aashish Jane H. Disposition: 11/05/16 00:57 Hospitalization ordered by Krunal Davenport for Inpatient Admission. 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 - Bed requested for 4 [place]. - Status is Inpatient Admission. bcj - Condition is Stable. - Problem is chronic. - Symptoms have improved. Historical: - Allergies: No known drug Allergies; - Home Meds: 1. amitriptyline 50 mg Oral tab 1 tab once daily (Last dose: 11/04/2016) 2. atenolol 50 mg Oral tab once daily (Last dose: 11/04/2016) 3. baclofen 20 mg Oral tab daily (Last dose: 11/04/2016) 4. Citalopram 30 mg Oral once daily (Last dose: 11/04/2016) 5. losartan 50 mg oral tab 1 tab once daily (Last dose: 11/04/2016) 6. Protonix 40 mg oral TbEC 1 tab once daily (Last dose: 11/04/2016) 7. Miralax 17 gram Oral pwpk 1 packet once daily (Last dose: 11/04/2016) - PMHx: Alcoholism; Cervical Myelopathy with left>right quadriplegia; Chronic Neck Pain; Depression; Hypertension; mass in colon; - PSHx: Cholecystectomy; Appendectomy; - Social history: No barriers to communication noted, The patient speaks fluent Slovak, Speaks appropriately for age, Smoking status: Patient states was never smoker of tobacco. - Family history: Not pertinent. - : The pt / caregiver states he / she is not on anticoagulants. Home medication list is obtained from the patient, [employer] import data. - Exposure Risk Screening:: None identified. Vital Signs: 11/04 20:58 BP 159 / 85; Pulse 79; Resp 20 S; Temp 98.1(O); Pulse Ox 100% on R/A; Weight 86.18 kg / gr2 189.99 lbs (R); Height 5 ft. 10 in. (177.80 cm) (R); Pain 9/10; 22:42 Pulse 68 MON; Pulse Ox 96% ; mlc 22:42 BP 174 / 92 (auto/); mlc 22:50 BP 174 / 92; Pain 10/10; mlc 23:02 BP 154 / 84 (auto/); mlc 23:02 Pulse 70 MON; Pulse Ox 91% ; mlc 23:22 BP 148 / 86 (auto/); mlc 23:22 Pulse 78 MON; Pulse Ox 97% ; mlc 23:22 BP 154 / 84; Pulse 84; Pulse Ox 96% ; Pain 7/10; mlc 23:42 BP 138 / 82 (auto/); mlc 23:42 Pulse 70 MON; Pulse Ox 92% ; mlc 11/05 00:02 Pulse 78 MON; Pulse Ox 95% ; mlc 00:02 BP 147 / 81 (auto/); mlc 00:21 BP 147 / 81; Pulse 87; Resp 18; Pulse Ox 93% ; Pain 6/10; mlc 00:22 Pulse 74 MON; Pulse Ox 93% ; mlc 00:22 BP 131 / 73 (auto/); mlc 00:42 Pulse 82 MON; Pulse Ox 96% ; mlc 00:42 BP 142 / 82 (auto/); mlc 01:02 Pulse 80 MON; Pulse Ox 96% ; mlc 01:02 BP 144 / 90 (auto/); mlc 01:22 Pulse 74 MON; Pulse Ox 94% ; mlc 01:22 BP 156 / 82 (auto/); mlc 01:42 BP 136 / 76 (auto/); mlc 01:42 Pulse 76 MON; Pulse Ox 96% ; mlc 02:02 Pulse 78 MON; Pulse Ox 97% ; mlc 02:02 BP 147 / 81 (auto/); mlc 02:22 Pulse 76 MON; Pulse Ox 91% ; mlc 02:22 BP 129 / 80 (auto/); mlc 02:42 Pulse 82 MON; Pulse Ox 93% ; mlc 02:42 BP 145 / 78 (auto/); mlc 03:02 Pulse 82 MON; Pulse Ox 95% ; mlc 03:02 BP 157 / 78 (auto/); mlc 03:22 BP 175 / 97 (auto/); mlc 03:22 Pulse 76 MON; Pulse Ox 94% ; mlc 03:42 Pulse 74 MON; Pulse Ox 93% ; mlc 03:42 BP 145 / 80 (auto/); mlc 04:02 Pulse 74 MON; Pulse Ox 95% ; mlc 04:02 BP 150 / 81 (auto/); mlc 04:22 BP 157 / 82 (auto/); mlc 04:33 Pulse 66 MON; Pulse Ox 93% ; mlc 04:42 Pulse 68 MON; Pulse Ox 93% ; mlc 04:42 BP 133 / 82 (auto/); mlc 04:58 Resp 20; Temp 99.0(TE); [facility] 11/04 20:58 Body Mass Index 27.26 (86.18 kg, 177.80 cm) gr2 MDM: 11/04 21:23 Undress patient appropriately for examination ordered. fg 21:23 IV Saline Lock ordered. fg 21:24 Basic Metabolic Profile Ordered. EDMS 21:24 CBC with Diff Ordered. EDMS 21:24 Lipase Ordered. EDMS 21:24 Liver Profile Ordered. EDMS 21:25 Urinalysis Ordered. EDMS 21:25 Urine Culture Ordered. EDMS 21:25 NOTHING BY MOUTH+DIET ordered. EDMS 22:03 CT ABD & PELVIS: IV Contrast Only Ordered. EDMS 22:03 morphine 4 mg IVP once ordered. fg 22:03 Ondansetron 4 mg IVP once ordered. fg 22:42 Dilaudid - HYDROmorphone 1 mg IVP once ordered. fg 23:54 Dilaudid - HYDROmorphone 1 mg IVP once ordered. fg 11/05 00:05 Financial registration complete. [facility] 00:34 Basic Metabolic Profile Reviewed. cs11 00:34 CBC with Diff Reviewed. cs11 00:34 Lipase Reviewed. cs11 00:34 Liver Profile Reviewed. cs11 00:34 Urinalysis Reviewed. cs11 00:37 NS 0.9% 1000 ml IV at bolus once ordered. cs11 00:37 NS 0.9% 1000 ml IV at 250 mL/hr continuous ordered. cs11 00:37 BED REQUEST+ADM ordered. EDMS 01:18 [facility] Payment Agreement was scanned into [employer] and attached to record. [facility] 03:28 Written Provider Order was scanned into [employer] and attached to record. ml3 03:32 NPO DIET ordered. EDMS 03:32 morphine 2 mg IVP once ordered. mlc 03:33 CBC WITH DIFFERENTIAL Ordered. EDMS 03:33 COMPLETE COMPHRENSIVE METABOLI Ordered. EDMS 03:33 LIPASE Ordered. EDMS 03:52 CARDIAC RISK PROFILE Ordered. EDMS 04:05 Admission / Observation Status ordered. EDMS 04:48 Admission / Observation Status ordered. EDMS 04:49 oxyCODONE-acetaminophen 5 mg-325 mg 1 tabs PO once ordered. [facility] 18:37 T-Sheet-- Draft Copy was scanned into [employer] and attached to record. klr 11/06 15:34 Other: PROGRESS NOTE was scanned into [employer] and attached to record. gb Administered Medications: 11/04 22:13 Drug: morphine 4 mg [morphine 4 mg/mL intravenous cartridge (1 mL)] Route: IVP; Site: mlc right antecubital; 22:50 Follow up: BP 174 / 92; Pain 10/10 Adult; Response: No significant change. [facility] 22:13 Drug: Ondansetron 4 mg [ondansetron HCl 2 mg/mL intravenous solution (2 mL)] Route: mlc IVP; Site: right antecubital; 23:22 Follow up: Response: Nausea is decreased [facility] 22:50 Drug: Dilaudid - HYDROmorphone 1 mg [hydromorphone 1 mg/mL injection syringe (1 mL)] [facility] Route: IVP; Site: right antecubital; 23:22 Follow up: BP 154 / 84; Pulse 84 bpm; Pulse Ox 96% ; Pain 7/10 Adult; Response: Pain is mlc decreased; pt states he does not need additional medication at this time. 11/05 00:02 Drug: Dilaudid - HYDROmorphone 1 mg [hydromorphone 1 mg/mL injection syringe (1 mL)] [facility] Route: IVP; Site: right antecubital; 00:21 Follow up: BP 147 / 81; Pulse 87 bpm; Resp 18 bpm; Pulse Ox 93% ; Pain 6/10 Adult; [facility] Response: Pain is decreased 00:42 Drug: NS 0.9% 1000 ml [sodium chloride 0.9 % intravenous solution] Route: IV; Rate: mlc bolus; Site: right antecubital; 01:53 Follow up: IV Status: Completed infusion [facility] 01:53 Drug: NS 0.9% 1000 ml [sodium chloride 0.9 % intravenous solution] Route: IV; Rate: 250 mlc mL/hr; Site: right antecubital; 03:32 Drug: morphine 2 mg [morphine 2 mg/mL intravenous cartridge (1 mL)] Route: IVP; Site: mlc right antecubital; 04:56 Drug: oxyCODONE-acetaminophen 1 tabs [oxycodone-acetaminophen 5 mg-325 mg tablet (1 mlc tabs)] Route: PO; Signatures: Dispatcher [employer] Lauren Duvall, RN RN kmg1 Yasir Dodge RN RN thomas Eugene, Heather, Reg Reg gb Danay, Surendra, Hoe [employer] Unit ml3 Gerry He, DO cs11 Rosie Finnegan RN RN [facility] Carli Haskins RN RN [facility] Mari Bravo Peg Valdez MD MD fg Redder, Kathie klr The chart was reviewed and I authenticate all verbal orders and agree with the evaluation and treatment provided.Attachments: 01:18 [facility] Payment Agreement [facility] 03:28 Written Provider Order ml3 18:37 T-Sheet-- Draft Copy kl Chart Complete MTDVinicio
--- NOTE | 2016-11-07 20:13 | EDDOCDS ---
Physician Documentation [facility] Name: Joao Brenner Age: 56 yrs Sex: Male : 1960 Arrival Date: 11/04/2016 Time: 20:57 Bed Admit Hold Private MD: Aashish Jane H. Disposition: 11/05/16 00:57 Hospitalization ordered by Krunal Davenport for Inpatient Admission. 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 - Bed requested for 4 [place]. - Status is Inpatient Admission. bcj - Condition is Stable. - Problem is chronic. - Symptoms have improved. Historical: - Allergies: No known drug Allergies; - Home Meds: 1. amitriptyline 50 mg Oral tab 1 tab once daily (Last dose: 11/04/2016) 2. atenolol 50 mg Oral tab once daily (Last dose: 11/04/2016) 3. baclofen 20 mg Oral tab daily (Last dose: 11/04/2016) 4. Citalopram 30 mg Oral once daily (Last dose: 11/04/2016) 5. losartan 50 mg oral tab 1 tab once daily (Last dose: 11/04/2016) 6. Protonix 40 mg oral TbEC 1 tab once daily (Last dose: 11/04/2016) 7. Miralax 17 gram Oral pwpk 1 packet once daily (Last dose: 11/04/2016) - PMHx: Alcoholism; Cervical Myelopathy with left>right quadriplegia; Chronic Neck Pain; Depression; Hypertension; mass in colon; - PSHx: Cholecystectomy; Appendectomy; - Social history: No barriers to communication noted, The patient speaks fluent Sami, Speaks appropriately for age, Smoking status: Patient states was never smoker of tobacco. - Family history: Not pertinent. - : The pt / caregiver states he / she is not on anticoagulants. Home medication list is obtained from the patient, [employer] import data. - Exposure Risk Screening:: None identified. Vital Signs: 11/04 20:58 BP 159 / 85; Pulse 79; Resp 20 S; Temp 98.1(O); Pulse Ox 100% on R/A; Weight 86.18 kg / gr2 189.99 lbs (R); Height 5 ft. 10 in. (177.80 cm) (R); Pain 9/10; 22:42 Pulse 68 MON; Pulse Ox 96% ; mlc 22:42 BP 174 / 92 (auto/); mlc 22:50 BP 174 / 92; Pain 10/10; mlc 23:02 BP 154 / 84 (auto/); mlc 23:02 Pulse 70 MON; Pulse Ox 91% ; mlc 23:22 BP 148 / 86 (auto/); mlc 23:22 Pulse 78 MON; Pulse Ox 97% ; mlc 23:22 BP 154 / 84; Pulse 84; Pulse Ox 96% ; Pain 7/10; mlc 23:42 BP 138 / 82 (auto/); mlc 23:42 Pulse 70 MON; Pulse Ox 92% ; mlc 11/05 00:02 Pulse 78 MON; Pulse Ox 95% ; mlc 00:02 BP 147 / 81 (auto/); mlc 00:21 BP 147 / 81; Pulse 87; Resp 18; Pulse Ox 93% ; Pain 6/10; mlc 00:22 Pulse 74 MON; Pulse Ox 93% ; mlc 00:22 BP 131 / 73 (auto/); mlc 00:42 Pulse 82 MON; Pulse Ox 96% ; mlc 00:42 BP 142 / 82 (auto/); mlc 01:02 Pulse 80 MON; Pulse Ox 96% ; mlc 01:02 BP 144 / 90 (auto/); mlc 01:22 Pulse 74 MON; Pulse Ox 94% ; mlc 01:22 BP 156 / 82 (auto/); mlc 01:42 BP 136 / 76 (auto/); mlc 01:42 Pulse 76 MON; Pulse Ox 96% ; mlc 02:02 Pulse 78 MON; Pulse Ox 97% ; mlc 02:02 BP 147 / 81 (auto/); mlc 02:22 Pulse 76 MON; Pulse Ox 91% ; mlc 02:22 BP 129 / 80 (auto/); mlc 02:42 Pulse 82 MON; Pulse Ox 93% ; mlc 02:42 BP 145 / 78 (auto/); mlc 03:02 Pulse 82 MON; Pulse Ox 95% ; mlc 03:02 BP 157 / 78 (auto/); mlc 03:22 BP 175 / 97 (auto/); mlc 03:22 Pulse 76 MON; Pulse Ox 94% ; mlc 03:42 Pulse 74 MON; Pulse Ox 93% ; mlc 03:42 BP 145 / 80 (auto/); mlc 04:02 Pulse 74 MON; Pulse Ox 95% ; mlc 04:02 BP 150 / 81 (auto/); mlc 04:22 BP 157 / 82 (auto/); mlc 04:33 Pulse 66 MON; Pulse Ox 93% ; mlc 04:42 Pulse 68 MON; Pulse Ox 93% ; mlc 04:42 BP 133 / 82 (auto/); mlc 04:58 Resp 20; Temp 99.0(TE); [facility] 11/04 20:58 Body Mass Index 27.26 (86.18 kg, 177.80 cm) gr2 MDM: 11/04 21:23 Undress patient appropriately for examination ordered. fg 21:23 IV Saline Lock ordered. fg 21:24 Basic Metabolic Profile Ordered. EDMS 21:24 CBC with Diff Ordered. EDMS 21:24 Lipase Ordered. EDMS 21:24 Liver Profile Ordered. EDMS 21:25 Urinalysis Ordered. EDMS 21:25 Urine Culture Ordered. EDMS 21:25 NOTHING BY MOUTH+DIET ordered. EDMS 22:03 CT ABD & PELVIS: IV Contrast Only Ordered. EDMS 22:03 morphine 4 mg IVP once ordered. fg 22:03 Ondansetron 4 mg IVP once ordered. fg 22:42 Dilaudid - HYDROmorphone 1 mg IVP once ordered. fg 23:54 Dilaudid - HYDROmorphone 1 mg IVP once ordered. fg 11/05 00:05 Financial registration complete. [facility] 00:34 Basic Metabolic Profile Reviewed. cs11 00:34 CBC with Diff Reviewed. cs11 00:34 Lipase Reviewed. cs11 00:34 Liver Profile Reviewed. cs11 00:34 Urinalysis Reviewed. cs11 00:37 NS 0.9% 1000 ml IV at bolus once ordered. cs11 00:37 NS 0.9% 1000 ml IV at 250 mL/hr continuous ordered. cs11 00:37 BED REQUEST+ADM ordered. EDMS 01:18 [facility] Payment Agreement was scanned into [employer] and attached to record. [facility] 03:28 Written Provider Order was scanned into [employer] and attached to record. ml3 03:32 NPO DIET ordered. EDMS 03:32 morphine 2 mg IVP once ordered. mlc 03:33 CBC WITH DIFFERENTIAL Ordered. EDMS 03:33 COMPLETE COMPHRENSIVE METABOLI Ordered. EDMS 03:33 LIPASE Ordered. EDMS 03:52 CARDIAC RISK PROFILE Ordered. EDMS 04:05 Admission / Observation Status ordered. EDMS 04:48 Admission / Observation Status ordered. EDMS 04:49 oxyCODONE-acetaminophen 5 mg-325 mg 1 tabs PO once ordered. [facility] 18:37 T-Sheet-- Draft Copy was scanned into [employer] and attached to record. klr 11/06 15:34 Other: PROGRESS NOTE was scanned into [employer] and attached to record. gb Administered Medications: 11/04 22:13 Drug: morphine 4 mg [morphine 4 mg/mL intravenous cartridge (1 mL)] Route: IVP; Site: mlc right antecubital; 22:50 Follow up: BP 174 / 92; Pain 10/10 Adult; Response: No significant change. [facility] 22:13 Drug: Ondansetron 4 mg [ondansetron HCl 2 mg/mL intravenous solution (2 mL)] Route: mlc IVP; Site: right antecubital; 23:22 Follow up: Response: Nausea is decreased [facility] 22:50 Drug: Dilaudid - HYDROmorphone 1 mg [hydromorphone 1 mg/mL injection syringe (1 mL)] [facility] Route: IVP; Site: right antecubital; 23:22 Follow up: BP 154 / 84; Pulse 84 bpm; Pulse Ox 96% ; Pain 7/10 Adult; Response: Pain is mlc decreased; pt states he does not need additional medication at this time. 11/05 00:02 Drug: Dilaudid - HYDROmorphone 1 mg [hydromorphone 1 mg/mL injection syringe (1 mL)] [facility] Route: IVP; Site: right antecubital; 00:21 Follow up: BP 147 / 81; Pulse 87 bpm; Resp 18 bpm; Pulse Ox 93% ; Pain 6/10 Adult; [facility] Response: Pain is decreased 00:42 Drug: NS 0.9% 1000 ml [sodium chloride 0.9 % intravenous solution] Route: IV; Rate: mlc bolus; Site: right antecubital; 01:53 Follow up: IV Status: Completed infusion [facility] 01:53 Drug: NS 0.9% 1000 ml [sodium chloride 0.9 % intravenous solution] Route: IV; Rate: 250 mlc mL/hr; Site: right antecubital; 03:32 Drug: morphine 2 mg [morphine 2 mg/mL intravenous cartridge (1 mL)] Route: IVP; Site: mlc right antecubital; 04:56 Drug: oxyCODONE-acetaminophen 1 tabs [oxycodone-acetaminophen 5 mg-325 mg tablet (1 mlc tabs)] Route: PO; Signatures: Dispatcher [employer] Lauren Duvall, RN RN kmg1 Yasir Dodge RN RN thomas Eugene, Heather, Reg Reg gb Danay, Surendra, Pattern Per[employer]ating Machine Operator Unit ml3 Gerry eH, DO cs11 Rosie Finnegan RN RN [facility] Carli Haskins RN RN [facility] Mari Bravo Peg Valdez MD MD fg Redder, Kathie klr The chart was reviewed and I authenticate all verbal orders and agree with the evaluation and treatment provided.Attachments: 01:18 [facility] Payment Agreement [facility] 03:28 Written Provider Order ml3 18:37 T-Sheet-- Draft Copy kl Chart Complete MTDVinicio
[2016-11-07] MEDS: AMITRIPTYLINE 50 MG TAB PO PRN (23:51)
[2016-11-08] VITALS (7 sets, daily range): BP systolic 135–164; BP diastolic 61–89
[2016-11-08] MEDS: OXAZEPAM 10 MG CAP PO SCH ×2 (05:58→12:04)
[2016-11-08] MEDS: MORPHINE 2 MG/ML 1ML SYRINGE IV PRN (06:10)
[2016-11-08 06:40] LABS: BASO % 0.3 % (0.0-1.0); EOS # 0.1 K/mm3 (0.0-0.50); EOS % 2.6 % (0.0-3.0); LARGE UNSTAINED CELL # 0.1 K/mm3 (0.0-0.4); LARGE UNSTAINED CELL % 1.8 % (0.0-4.0); LYMPH # 1.5 K/mm3 (1.5-4.5); MEAN CORPUSCULAR HEMOGLOBIN 33.4 pg (27.0-33.0); MEAN CORPUSCULAR HGB CONC 35.1 g/dl (32.0-36.5); MEAN CORPUSCULAR VOLUME 95.2 fl (80.0-96.0); MONO # 0.3 K/mm3 (0.0-0.8); MONO % 7.1 % (0.0-5.0); NEUTROPHILS # 2.1 K/mm3 (1.8-7.7); NEUTROPHILS % 51.1 % (36.0-66.0); PLATELET COUNT, AUTOMATED 253 k/mm3 (150-450); RED CELL DISTRIBUTION WIDTH 11.6 % (11.5-14.5); WHITE BLOOD COUNT 4.1 K/mm3 (4.0-10.0)
[2016-11-08 06:54] LABS: ALBUMIN 2.6 GM/DL (3.2-5.2); ALBUMIN/GLOBULIN RATIO 0.87 (1.00-1.93); ALKALINE PHOSPHATASE 63 U/L (45-117); ALT/SGPT 23 U/L (12-78); ANION GAP 9 MEQ/L (8-16); AST/SGOT 23 U/L (15-37); BILIRUBIN,TOTAL 0.3 MG/DL (0.2-1.0); BLOOD UREA NITROGEN 3 MG/DL (7-18); CARBON DIOXIDE LEVEL 24 MEQ/L (21-32); CHLORIDE LEVEL 112 MEQ/L (98-107); CREATININE FOR GFR 0.75 MG/DL (0.70-1.30); GLOMERULAR FILTRATION RATE > 60.0 (>56); GLUCOSE, FASTING 91 MG/DL (70-105); POTASSIUM SERUM 3.8 MEQ/L (3.5-5.1); SODIUM LEVEL 145 MEQ/L (136-145); TOTAL PROTEIN 5.6 GM/DL (6.4-8.2)
[2016-11-08] MEDS: NS 1,000 ML IV SCH ×3 (08:00→23:00)
[2016-11-08] MEDS: ENOXAPARIN 40 MG/0.4 ML SYRINGE (J1650) SC SCH (08:04)
[2016-11-08] MEDS: PANTOPRAZOLE 40MG TAB (PROTONIX) PO SCH (08:05)
[2016-11-08] MEDS: LOSARTAN 50 MG TAB PO SCH (08:05)
[2016-11-08] MEDS: amLODIPine 5 MG TAB PO SCH (08:06)
[2016-11-08] MEDS ORDERED: ATENOLOL 25 MG TAB PO SCH (09:00)
[2016-11-08] MEDS ORDERED: SODIUM CHLORIDE 0.9% 1000 ML IV ONE (10:15)
[2016-11-08] MEDS: BACLOFEN 10 MG TAB PO PRN (12:02)
[2016-11-08] MEDS ORDERED: SIMETHICONE 40MG/0.6ML DROPS 30ML As Ordered ONE (16:09)
[2016-11-08] MEDS ORDERED: fentaNYL 100 MCG/2 ML INJECTION (J3010) As Ordered ONE (16:40)
[2016-11-08] MEDS ORDERED: LIDOCAINE 2% INJ 100 MG/5 ML SDV (FOR ANES.) As Ordered ONE ×2 (16:40)
[2016-11-08] MEDS ORDERED: PROPOFOL 200 MG/20 ML VIAL As Ordered ONE (16:40)
--- NOTE | 2016-11-08 17:03 | ROOR ---
Patient Name: Joao Brenner Procedure Date: 11/08/2016 4:15 PM Date of : 1960 Age: 56 Room: Main OR Gender: Male Note Status: Finalized Procedure: Upper GI endoscopy Indications: Epigastric abdominal pain, Abnormal CT of the GI tract (duodenitis, pancreatitis) Providers: Krunal SADLER MD Referring MD: 2. Inpatient 2. Inpatient, SUNITA SANDS MD Requesting Provider: Medicines: Monitored Anesthesia Care Complications: No immediate complications. Procedure: Pre-Anesthesia Assessment: - The heart rate, respiratory rate, oxygen saturations, blood pressure, adequacy of pulmonary ventilation, and response to care were monitored throughout the procedure. The Endoscope was introduced through the mouth, and advanced to the third part of duodenum. The upper GI endoscopy was accomplished without difficulty. The patient tolerated the procedure well. Findings: The esophagus was normal. The stomach was normal. The examined duodenum was normal. Impression: - Normal esophagus. - Normal stomach. - Normal examined duodenum. - No specimens collected. Recommendation: - Observe patient's clinical course. Krunal Sadler MD Krunal SADLER MD 11/08/2016 5:03:01 PM This report has been signed electronically. Number of Addenda: 0 Note Initiated On: 11/08/2016 4:15 PM Estimated Blood Loss: Estimated blood loss: none.
--- NOTE | 2016-11-08 17:14 | ROOR ---
Patient Name: Joao Brenner Procedure Date: 11/08/2016 4:16 PM Date of : 1960 Age: 56 Room: Main OR Gender: Male Note Status: Finalized Procedure: Colonoscopy Indications: Abnormal CT of the GI tract(ascending colon lesion vs spasm/constipation) Providers: Krunal GREENE MD Referring MD: 2. Inpatient 2. Inpatient, SUNITA SANDS MD Requesting Provider: Medicines: Monitored Anesthesia Care Complications: No immediate complications. Procedure: Pre-Anesthesia Assessment: - The heart rate, respiratory rate, oxygen saturations, blood pressure, adequacy of pulmonary ventilation, and response to care were monitored throughout the procedure. The Colonoscope was introduced through the anus and advanced to 5 cm into the ileum. The colonoscopy was performed without difficulty. The patient tolerated the procedure well. The quality of the bowel preparation was adequate. Findings: The perianal and digital rectal examinations were normal. (EXAM: Complete, PREP:Adequate) Two sessile polyps were found in the sigmoid colon and transverse colon. The polyps were diminutive in size. These polyps were removed with a cold snare. Resection and retrieval were complete. A few small-mouthed diverticula were found in the sigmoid colon. Internal hemorrhoids were found during retroflexion. The hemorrhoids were moderate. The exam was otherwise without abnormality on direct and retroflexion views. Impression: - EXAM: Complete, PREP:Adequate - Normal terminal ileum. - Two diminutive polyps in the sigmoid colon and in the transverse colon, removed with a cold snare. Resected and retrieved. - Mild diverticulosis in the sigmoid colon. - Moderate Internal hemorrhoids. (- The examination was otherwise normal on direct and retroflexion views. The lesion described on CT is not present and likely represented an area of spasm.) Recommendation: - Repeat colonoscopy in 3 - 5 years for surveillance based on pathology results. - Telephone endoscopist for pathology results in 2 weeks. - [facility]. - Advance diet as tolerated - advance as tolerated to advance diet as tolerated. Krunal Greene MD Krunal GREENE MD 11/08/2016 5:13:34 PM This report has been signed electronically. Number of Addenda: 0 Note Initiated On: 11/08/2016 4:16 PM Estimated Blood Loss: Estimated blood loss: none.
[2016-11-08] MEDS ORDERED: LR 1,000 ML IV SCH (17:45)
[2016-11-08] MEDS ORDERED: ONDANSETRON 4MG/2ML VIAL (J2405) IV PRN (17:45)
--- NOTE | 2016-11-08 18:15 | ECGEPIP ---
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 LAST EKG ON 11/01/2016 AT 8:48:51, NO SIGNIFICANT CHANGES BUT NOW SLOWER HEART RATE Electronically Signed On 11-08-2016 18:14:47 EST by Ion Storm
--- NOTE | 2016-11-08 18:36 | ECGEPIP ---
Stationary ECG Study [facility] Test Date: 2016-11-08 Pat Name: ANA CORNEJO Department: Room: [place] [address] Gender: M Manager House: TIMOTHY : 1960 Requested By: PAULIE NORRIS Order Number: [id number] Reading MD: Ion Storm Measurements Intervals [place] Rate: 51 P: 33 OK: 186 QRS: 31 QRSD: 98 T: 24 QT: 441 QTc: 408 Interpretive Statements SINUS BRADYCARDIA MINIMAL ST SEGMENT CHANGES CONSISTENT WITH REPOLARIZATION ABNORMALITY NOTED LAST TRACING ON 11/07/2016 AT 15:39:13, NO SIGNIFICANT CHANGES Electronically Signed On 11-08-2016 18:36:44 EST by Ion Storm
[2016-11-08] MEDS: oxyCODONE 5MG TAB PO PRN (18:44)
--- NOTE | 2016-11-08 20:05 | IPN ---
DATE: 11/08/2016 SUBJECTIVE: This is a 56-year-old male who was seen and examined at bedside. Overnight, he was transferred from medical/surgical to progressive care unit (PCU) due to near syncopal episode. EKG at that time was bradycardic with heart rate of 50. This morning he was still found to be positive for orthostasis. States that he was feeling dizzy with positional change. No chest pain, shortness of breath, nausea, vomiting. Abdominal pain is still persistent. OBJECTIVE: VITAL SIGNS: Blood pressure 159/75, heart rate 52, temperature 95.6, respiration rate 20, pulse oximetry 95% on room air. Intake and output the last 24 hours: 4113 in and 250. GENERAL: The patient is lying in bed comfortable. No acute distress. He is alert, awake, oriented times three. Pleasant, cooperative. HEENT: Normocephalic, atraumatic. Dry oral mucosa. NECK: Supple. Trachea midline. No jugular venous distention (JVD). CHEST: Symmetric chest rise. No accessory muscle use. Breath sounds were clear to auscultation bilaterally. HEART: Regular rate and rhythm. S1, S2 present. ABDOMEN: Soft. cloth bleaching range back tender to palpation. No guarding. No rebound. EXTREMITIES: No pedal edema. Pedal pulses present bilaterally. LABORATORY DATA: WBC 4.1, hemoglobin 10.9, hematocrit 31, platelets 253. Sodium 145, potassium 3.8, chloride 112, carbon dioxide 24, BUN 3, creatinine 0.75, glucose 91, troponin negative. IMPRESSION/PLAN: Mr. Brnener is a 56-year-old male who presented with abdominal pain. 1. Acute pancreatitis, resolved. He was made nothing by mouth this morning pending colonoscopy to further evaluate abnormal finding on CT. Hopefully, colonoscopy will help explain the cause for his persistent abdominal pain. 2. Hypertension due to his episodes of bradycardia on telemetry and EKG. Atenolol is now discontinued. Continue Norvasc 5 mg by mouth daily and currently also on Losartan. 3. Orthostatic hypotension. Secondary to dehydration. Continue IV fluid. 4. Alcohol abuse. Refused Serax. Have discontinued medications as he is not likely to be going through withdrawal at this time. 5. Chronic back and neck pain. We previously discontinued morphine due to the patient's orthostatic hypotension. Continue Baclofen and amitriptyline. 6. Gastroesophageal reflux disease (GERD). Continue Protonix 40 mg by mouth daily. 7. Anxiety and depression. Continue Celexa 40 mg by mouth every 48 hours. 8. Deep vein thrombosis (DVT) prophylaxis. Sequential compression device (SCD) , thromboembolic compression stockings (TEDS) and Lovenox. My preceptor for this patient encounter was Dr. Tan. The preceptor was physically present in the building during the encounter and was fully available. As needed, all aspects of the patient interview, examination, medical decision making process, and medical care plan development were reviewed and approved by the preceptor. The preceptor is aware and concurs with the plan as stated in the body of this note and will attest to such by his/her cosignature. LUMA
--- NOTE | 2016-11-08 21:28 | ECHO ---
DATE OF PROCEDURE: 11/08/2016 REFERRING PHYSICIAN: Praful Tan MD PATIENT LOCATION: Room 3226 REASON FOR ECHOCARDIOGRAM: Syncope. 2D MEASUREMENTS: IVS: 1.2 cm LV: 5.0 cm LVPW: 1.2 cm LA: 3.8 cm Aorta: 3.5 cm IVC: 2.0 cm DOPPLER MEASUREMENTS: Peak velocity across the aortic valve: 1.2 m/s Peak velocity across the LVOT: 0.9 m/s Mitral E: 1.0, Mitral A: 0.48, with a ratio of 2.1 Maximum tricuspid valve velocity: 2.6 m/s 2D COMMENTS: 1. Normal left ventricular size, wall thickness and normal global left ventricular systolic function. The estimated global left ventricular systolic ejection fraction is 60 to 65%. 2. Normal left atrium. Normal right atrium and right ventricle. 3. The atrial septum appeared to be normal without evidence of defect or shunt. 4. Normal aortic root. 5. No pericardial effusion seen. 6. Minimally calcified aortic valve with normal leaflet excursion. Minimally calcified mitral annulus with normal anterior mitral valve leaflet motion. Normal tricuspid valve. The pulmonic valve was not well visualized. 7. The inferior vena cava was borderline enlarged, central venous pressure might be elevated. DOPPLER: It detects trace aortic regurgitation, mild to moderate mitral regurgitation, moderate tricuspid regurgitation. The calculated pulmonary artery systolic pressure varies between 30 to 40 mmHg. Assessment of the left ventricular diastolic function appeared to be normal. IMPRESSION: 1. Normal global left ventricular systolic and diastolic function. 2. Aortic valve sclerosis with trace aortic regurgitation, but no aortic stenosis. 3. Mitral annulus calcification with mid to moderate mitral regurgitation. 4. Moderate tricuspid regurgitation with mild pulmonary hypertension. 5. No echocardiographic findings noted in this transthoracic echocardiogram that could explain the syncopal episode. MTDD
[2016-11-08] MEDS: AMITRIPTYLINE 50 MG TAB PO PRN (22:39)
[2016-11-09] MEDS: NS 1,000 ML IV SCH ×3 (06:25→22:00)
[2016-11-09 08:00] VITALS: BP 140/78
[2016-11-09 08:05] VITALS: BP_SYST 130; BP_SYST 135; BP_SYST 152; BP_DIAS 78; BP_DIAS 84; BP_DIAS 88
[2016-11-09] MEDS: CitaloPRAM (CeleXA) 20 MG TAB PO SCH (08:19)
[2016-11-09] MEDS: LOSARTAN 50 MG TAB PO SCH (08:19)
[2016-11-09] MEDS: PANTOPRAZOLE 40MG TAB (PROTONIX) PO SCH (08:19)
[2016-11-09] MEDS: ENOXAPARIN 40 MG/0.4 ML SYRINGE (J1650) SC SCH (08:19)
[2016-11-09] MEDS: amLODIPine 5 MG TAB PO SCH (08:19)
[2016-11-09] MEDS: oxyCODONE 5MG TAB PO PRN ×2 (08:27→19:38)
[2016-11-09 09:19] LABS: BASO % 0.2 % (0.0-1.0); EOS # 0.1 K/mm3 (0.0-0.50); EOS % 1.6 % (0.0-3.0); LARGE UNSTAINED CELL # 0.1 K/mm3 (0.0-0.4); LARGE UNSTAINED CELL % 1.5 % (0.0-4.0); LYMPH # 1.2 K/mm3 (1.5-4.5); MEAN CORPUSCULAR HEMOGLOBIN 32.8 pg (27.0-33.0); MEAN CORPUSCULAR HGB CONC 34.1 g/dl (32.0-36.5); MEAN CORPUSCULAR VOLUME 96.3 fl (80.0-96.0); MONO # 0.4 K/mm3 (0.0-0.8); MONO % 7.6 % (0.0-5.0); NEUTROPHILS # 3.2 K/mm3 (1.8-7.7); PLATELET COUNT, AUTOMATED 288 k/mm3 (150-450); RED CELL DISTRIBUTION WIDTH 11.5 % (11.5-14.5); WHITE BLOOD COUNT 4.9 K/mm3 (4.0-10.0)
[2016-11-09 09:44] LABS: ALBUMIN 2.8 GM/DL (3.2-5.2); ALBUMIN/GLOBULIN RATIO 0.97 (1.00-1.93); ALKALINE PHOSPHATASE 65 U/L (45-117); ALT/SGPT 27 U/L (12-78); ANION GAP 8 MEQ/L (8-16); AST/SGOT 22 U/L (15-37); BILIRUBIN,TOTAL 0.3 MG/DL (0.2-1.0); BLOOD UREA NITROGEN 3 MG/DL (7-18); CALCIUM LEVEL 8.2 MG/DL (8.5-10.1); CARBON DIOXIDE LEVEL 26 MEQ/L (21-32); CHLORIDE LEVEL 109 MEQ/L (98-107); GLOMERULAR FILTRATION RATE > 60.0 (>56); GLUCOSE, FASTING 113 MG/DL (70-105); POTASSIUM SERUM 3.7 MEQ/L (3.5-5.1); SODIUM LEVEL 143 MEQ/L (136-145); TOTAL PROTEIN 5.7 GM/DL (6.4-8.2)
[2016-11-09 12:00] VITALS: BP 149/72
[2016-11-09 16:00] VITALS: BP 161/83
[2016-11-09 19:48] VITALS: BP 143/81
--- NOTE | 2016-11-09 22:04 | IPN ---
DATE: 11/09/2016 SUBJECTIVE: This is a 56-year-old male who was examined at bedside. He underwent EGD and colonoscopy. After procedure his diet was advanced to clear liquid diet which he tolerated that well. Overnight remained bradycardic. His abdominal pain was somewhat improved compared to prior visits. No chest pain, shortness of breath, palpitations, nausea, vomiting, dizziness. OBJECTIVE: VITAL SIGNS: Blood pressure 140/78, heart rate 71 to 95, respiration rate 18, pulse oximetry 96% on room air. Intake and output in the last 24 hours: 3010 and 1150. GENERAL: Patient is sitting in bed, comfortable, in no acute distress. He is alert, awake, oriented times three. Pleasant and cooperative. HEENT: Normocephalic, atraumatic. Dry oral mucosa. NECK: Supple, trachea midline. No jugular venous distention (JVD). CHEST: Symmetric chest rise. Breath sounds were clear to auscultation bilaterally. HEART: Regular rate and rhythm. S1, S2 present. ABDOMEN: Soft, mildly tender to palpation, most significant in bilateral lower quadrants. No guarding. No rebound. No peritoneal signs. EXTREMITIES: No pedal edema. Pedal pulses present bilaterally. LABORATORY DATA: WBC 4.9, hemoglobin 11.4, hematocrit 33.5, improved compared to yesterday, platelets 288. Sodium 143, potassium 3.7, chloride 109, carbon dioxide 26, BUN 3, creatinine 0.9, glucose 113, calcium 8.2, liver profile normal. Colonoscopy showed normal terminal ileum. Two definitive polyps in sigmoid colon and transverse colon. Mild diverticulosis in sigmoid. Moderate internal hemorrhoids. EGD showed esophagus normal, stomach normal, duodenum normal. IMPRESSION AND PLAN: Mr. Brenner is a 56-year-old male with history of hypertension, hyperlipidemia who presented with abdominal pain. 1. Abdominal pain. Secondary to pancreatitis, resolved. His abdominal exam is improved today compared to prior visits. Had colonoscopy that was unrevealing for any malignancy. Will followup with result of pathology. Will advance his diet today as tolerated. Continue with supportive control with pain medication. He is currently on oxycodone every 6 hours as needed. 2. Bradycardia. Believed to be secondary to effect of atenolol. His medication was stopped on 11/07/2016, however still with persistent bradycardia on monitor. Have consulted Dr. Lopez for further assistance regarding this, will followup with his recommendations. 3. Hypertension. Home dose atenolol 50 mg daily was discontinued due to bradycardia. Currently on Norvasc and Cozaar. 4. Orthostatic hypotension. Continue intravenous (IV) hydration. 5. Chronic neck and back pain. Continue baclofen and amitriptyline. He is currently also on Tylenol and oxycodone. 6. Gastroesophageal reflux disease (GERD). Continue Protonix 40 mg daily. 7. Deep venous thrombosis (DVT) prophylaxis. Sequential compression device (SCDs), thromboembolism deterrents (TEDs), and Lovenox. My preceptor for this patient encounter was Dr. Praful Tan. The preceptor was physically present in the building during the encounter and was fully available. As needed, all aspects of the patient interview, examination, medical decision making process, and medical care plan development were reviewed and approved by the preceptor. The preceptor is aware and concurs with the plan as stated in the body of this note and will attest to such by his/her cosignature. LUMA
[2016-11-09] MEDS: AMITRIPTYLINE 50 MG TAB PO PRN (22:27)
[2016-11-09 23:59] VITALS: BP 149/87
[2016-11-10 05:11] VITALS: BP 154/79
[2016-11-10] MEDS: NS 1,000 ML IV SCH (05:15)
[2016-11-10 08:00] VITALS: BP 135/93
[2016-11-10 08:27] LABS: BASO % 0.4 % (0.0-1.0); EOS # 0.1 K/mm3 (0.0-0.50); EOS % 2.3 % (0.0-3.0); LARGE UNSTAINED CELL # 0.1 K/mm3 (0.0-0.4); LARGE UNSTAINED CELL % 1.7 % (0.0-4.0); LYMPH # 1.3 K/mm3 (1.5-4.5); LYMPH % 26.7 % (24.0-44.0); MEAN CORPUSCULAR HEMOGLOBIN 32.7 pg (27.0-33.0); MEAN CORPUSCULAR HGB CONC 33.2 g/dl (32.0-36.5); MEAN CORPUSCULAR VOLUME 98.4 fl (80.0-96.0); MONO # 0.3 K/mm3 (0.0-0.8); MONO % 6.3 % (0.0-5.0); NEUTROPHILS # 3.1 K/mm3 (1.8-7.7); NEUTROPHILS % 62.6 % (36.0-66.0); PLATELET COUNT, AUTOMATED 325 k/mm3 (150-450); RED CELL DISTRIBUTION WIDTH 11.6 % (11.5-14.5)
[2016-11-10 08:42] VITALS: BP 154/79
[2016-11-10] MEDS: ENOXAPARIN 40 MG/0.4 ML SYRINGE (J1650) SC SCH (08:42)
[2016-11-10] MEDS: LOSARTAN 50 MG TAB PO SCH (08:42)
[2016-11-10] MEDS: PANTOPRAZOLE 40MG TAB (PROTONIX) PO SCH (08:42)
[2016-11-10] MEDS: amLODIPine 5 MG TAB PO SCH (08:42)
[2016-11-10 08:52] LABS: ALBUMIN/GLOBULIN RATIO 0.88 (1.00-1.93); ALKALINE PHOSPHATASE 80 U/L (45-117); ALT/SGPT 28 U/L (12-78); ANION GAP 10 MEQ/L (8-16); AST/SGOT 21 U/L (15-37); BILIRUBIN,TOTAL 0.2 MG/DL (0.2-1.0); BLOOD UREA NITROGEN 6 MG/DL (7-18); CALCIUM LEVEL 8.4 MG/DL (8.5-10.1); CARBON DIOXIDE LEVEL 27 MEQ/L (21-32); CHLORIDE LEVEL 107 MEQ/L (98-107); CREATININE FOR GFR 0.88 MG/DL (0.70-1.30); GLOMERULAR FILTRATION RATE > 60.0 (>56); GLUCOSE, FASTING 104 MG/DL (70-105); POTASSIUM SERUM 3.9 MEQ/L (3.5-5.1); SODIUM LEVEL 144 MEQ/L (136-145); TOTAL PROTEIN 6.4 GM/DL (6.4-8.2)
--- NOTE | 2016-11-10 10:51 | CR.PDOC ---
[facility] Cardiology Consultation Date of Consultation 11/10/16 Cadiology Consultation REFERRING PHYSICIAN: Dr Tan REASON FOR REFERRAL: Bradycardia HISTORY OF PRESENT ILLNESS: Mr Brenner is a 56 y/o male who was admitted for acute pancreatitis. PAST MEDICAL: Tubulovillous adenoma. Cervical myelopathy with left greater than right. Alcoholism. Chronic neck pain. Depression. Diverticulosis. Hypertension. SURGICAL HISTORY: Cholecystectomy. Appendectomy. Partial corpectomies C4 to C3 with discectomy. Bilateral inguinal hernia repair 2014. Colonoscopies. Most recent one 2013 showing internal hemorrhoids, 2010 showed 11 mm polyp that came back positive for tubular adenomatous. FAMILY HISTORY: Mother and father both from massive [place]'s, 76 and 63 y/o respectively. SOCIAL HISTORY: Non-smoker, no history of tobacco use. Pt. does admit to drinking alcohol, however he states that it is only when his friends are over once in a while, could consume 6-8 beers at a time, occasionally glass of wine with dinner. Patient seems agitated with questioning about alcohol use. Denies drug use or history. Is on disability currently from neck surgeries on his cervical spine. 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 REVIEW OF SYSTEMS: Cardiovascular: At bedside exam, pt denied experiencing chest pain, however admits to having left breast pain, sharp in nature once in a while that seemed to be exacerbated by physical activity such as snow shoveling, but would resolve when he would rest. Denied episodes of syncope except recently while being in the hospital because " he hasn't been allowed to eat anything in days" . Denied palpitations. Respiratory: Denied SOB or wheezing. GI/: No recent changes in bowel or urinary habits, admits his abdominal pain is much improved since admission. HEENT: Denied headache or change in vision . All other 10 point review of systems questions negative. PHYSICAL EXAMINATION: VITAL SIGNS: Please see below. GENERAL APPEARANCE: Middle age man, sitting comfortably in bed side chair, in no acute distress, non-labored. EYES: EOMI, non-icteric sclera ENT/Mouth: moist mucus membranes NECK: no JVD appreciated, neck supple EXTREMITIES: no cyanosis, clubbing or edema appreciated. Pt does have left LE brace, states he developed foot drop after his cervical spinal surgeries SKIN: intact NEUROLOGIC/PSYCHOLOGIC: no focal deficits appreciated. However about 15 minutes into our encounter, the patient developed slight myoclonic like twitching and tardive like movements of his left upper and lower extremity with involvement of his neck musculature, which caused his neck and aforementioned limbs to move without his control. He states this phenomenon has been occurring since his cervical spine surgeries and he has no control over when they will begin or stopping them. HEART: normal s1 and s2, no murmurs rubs or gallops appreciated, rate in the 70' s currently. ARTERIAL PULSES: +2 radial b/l LOWER EXTREMITY EDEMA: not appreciated ABDOMEN: soft, non-distended. ALLERGIES: Please see below. HOME MEDICATIONS: Please see below. CURRENT MEDICATIONS: Please see below. Electrocardiogram: EKG 11-07-16 Sinus bradycardia with minimal ST segment changes consistent with repolarization abnormality noted. Last EKG on 11-01-16 no significant changes but now slower heart rate. EKG 11-08-16 Sinus bradycardia, minimal ST segment changes consistent with repolarization abnormality noted, no significant changes from study performed on 11-07-16. LABORATORY DATA: Please see below. IMAGIN11-04-16 Abdomen/Pelvic CT Acute pancreatitis. No fluid collection. Cholecystectomy. Hepatomegaly with fatty liver infiltration. Thank you for your kind referral of this patient. ASSESSMENT/PLAN: Mr Brenner appears to be doing well this morning. His hear rate has been appropriate as of late with rate in the 60-80 BPM, however he did have episodes of bradycardia overnight apparently when he slept, according to his telemetry readings. His lowest rate was 39 BPM one day prior. Since the patient had significant abdominal pain when he presented, it is likely that a vagal response contributed to his bradycardia. We would anticipate that once his pancreatitis is resolved and his abdominal pain ceases, his heart rate will respond adequately and increase so that he may go back on his beta jackie therapy. Due to the complaint of past left breast/chest pain, would recommend pt. to f/u with stress test to evaluate for ischemic disease. Pt. admitted to having very high triglycerides, would suggest checking these at some point and having the patient begin taking fish oil supplements. This was discussed at length with the patient. The importance of alcohol cessation was also discussed. Would not make any changes to his medical management at this time. No further recommendations. . Thank you kindly for asking me to participate in the care of your patient. Addendum MD Juliana: Agree with the note above. Episodes of sinus bradycardia likely related to use of atenolol with contributing increased vagal tone in setting of abdominal pain. Review of telemetry tracing did not reveal any episodes of AV block or pauses. No objections to patient's discharge. Vital Signs/I&O Vital Signs Date Time Temp Pulse Resp B/P Pulse Ox O2 Delivery O2 Flow Rate FiO2 11/10/16 08:42 71 154/79 11/10/16 08:11 Room Air 11/10/16 08:00 95.7 18 97 I&O- Last 24 Hours up to 6 AM 11/10/16 06:00 Intake Total 3360 ml Output Total 1150 ml Balance 2210 ml Laboratory Data Labs 24H Laboratory Tests 2 11/10/16 08:14: Blood Urea Nitrogen 6#L, Creatinine 0.88, Sodium Level 144, Potassium Level 3.9 , Chloride Level 107, Carbon Dioxide Level 27, Calcium Level 8.4L, Aspartate Amino Transf (AST/SGOT) 21, Alanine Aminotransferase (ALT/SGPT) 28, Alkaline Phosphatase 80, Total Bilirubin 0.2, Total Protein 6.4, Albumin 3.0L, Albumin/ Globulin Ratio 0.88L, Anion Gap 10, White Blood Count 5.0, Red Blood Count 3.71L , Hemoglobin 12.1L, Hematocrit 36.5L, Mean Corpuscular Volume 98.4H, Mean Corpuscular Hemoglobin 32.7, Mean Corpuscular Hemoglobin Concent 33.2, Red Cell Distribution Width 11.6, Platelet Count 325, Neutrophils (%) (Auto) 62.6, Lymphocytes (%) (Auto) 26.7, Monocytes (%) (Auto) 6.3H, Eosinophils (%) (Auto) 2.3, Basophils (%) (Auto) 0.4, Neutrophils # (Auto) 3.1, Lymphocytes # (Auto) 1.3L, Monocytes # (Auto) 0.3, Eosinophils # (Auto) 0.1, Basophils # (Auto) 0.0, Glomerular Filtration Rate > 60.0, Large Unclassified Cells # 0.1, Large Unclassified Cells % 1.7 CBC/BMP Laboratory Tests 11/10/16 08:14 Calcium Level 8.4 L, Aspartate Amino Transf (AST/SGOT) 21, Alanine Aminotransferase (ALT/SGPT) 28, Alkaline Phosphatase 80, Total Bilirubin 0.2, Total Protein 6.4, Albumin 3.0 L, Red Blood Count 3.71 L, Mean Corpuscular Volume 98.4 H, Mean Corpuscular Hemoglobin 32.7, Mean Corpuscular Hemoglobin Concent 33.2, Red Cell Distribution Width 11.6, Neutrophils (%) (Auto) 62.6, Lymphocytes (%) (Auto) 26.7, Monocytes (%) (Auto) 6.3 H, Eosinophils (%) (Auto) 2.3, Basophils (%) (Auto) 0.4, Neutrophils # (Auto) 3.1, Lymphocytes # (Auto) 1.3 L, Monocytes # (Auto) 0.3, Eosinophils # (Auto) 0.1, Basophils # (Auto) 0.0 Microbiology Microbiology 11/04/16 Urine Culture - Final, Complete Home Medications Scheduled Amlodipine Besylate (Amlodipine Besylate) 5 Mg Tab 5 MG PO DAILY Citalopram Hydrobromide (Celexa) 40 Mg Tab 40 MG PO Q2D (Reported) Losartan Potassium (Losartan Potassium) 100 Mg Tab 100 MG PO DAILY (Reported) [place] 3 Polyunsat Fatty Acids (Lovaza 1 gm) 1 Cap Cap 1 CAP PO DAILY Pantoprazole Sodium Sesquihydr (Protonix) 40 Mg Tab 40 MG PO DAILY Polyethylene Glycol (Miralax) 1 Pow Pow 17 GM PO DAILY (Reported) Scheduled PRN Acetaminophen/Hydrocodone (Hydrocodone/Acetaminophen 5-325 mg) 1 Tab Tab 1 TAB PO Q4H PRN PRN PAIN (Reported) Amitriptyline HCl (Amitriptyline HCl) 50 Mg Tab 50 MG PO QHS PRN PRN PAIN OR DISCOMFORT (Reported) Baclofen (Baclofen) 20 Mg Tab 20 MG PO TID PRN PRN MUSCLE SPASMS (Reported) Docusate Sodium (Colace) 100 Mg Cap 100 MG PO BID PRN PRN CONSTIPATION (Reported ) Current Medications Current Medications Acetaminophen (Tylenol) 650 mg Q6HP PRN PO MILD PAIN OR FEVER; Start 11/05/16 at 03:30; Stop 12/08/16 at 03:29 Amitriptyline HCl (Elavil) 50 mg QHS PRN PO PAIN OR DISCOMFORT Last administered on 11/09/16t 22:27; Start 11/05/16 at 03:45; Stop 12/08/16 at 03:44 Amlodipine Besylate 5 mg 5 mg DAILY PO Last administered on 11/10/16 08:42; Start 11/07/16 at 09:00; Stop 12/08/16 at 08:59 Atenolol (Tenormin) 50 mg DAILY PO Last administered on 11/07/16 08:26; Start 11/05/16 at 09:00; Stop 11/07/16 at 16:25; Status DC Atenolol 25 mg 25 mg DAILY PO ; Start 11/08/16 at 09:00; Stop 11/08/16 at 09:00 ; Status DC Baclofen (Lioresal) 20 mg TID PRN PO MUSCLE SPASMS Last administered on 12:02; Start 11/05/16 at 03:45; Stop 12/08/16 at 03:44 Citalopram Hydrobromide (CeleXA) 40 mg Q48H PO Last administered on 11/05/16 09:00; Start 11/05/16 at 09:00; Stop 12/08/16 at 08:59 Enoxaparin Sodium (Lovenox) 40 mg DAILY SC Last administered on 11/10/16 08:42 ; Start 11/05/16 at 09:00; Stop 11/13/16 at 08:59 Home Med ASDIRECTED XX ; Start 11/05/16 at 01:15; Stop 11/05/16 at 04:46; Status DC Lactated Ringer's (Lactated Ringer'S) 1,000 ml @ 125 mls/hr Q8H IV ; Start at 17:45; Stop 11/08/16 at 18:45; Status DC Losartan Potassium (Cozaar) 100 mg DAILY PO Last administered on 11/10/16 08: 42; Start 11/05/16 at 09:00; Stop 12/08/16 at 08:59 Morphine Sulfate (Morphine Sulfate Inj) 2 mg Q2HP PRN IV PAIN Last administered on 11/08/16 06:10; Start 11/05/16 at 13:00; Stop 11/08/16 at 08:34 ; Status DC Morphine Sulfate (Morphine Sulfate Inj) 2 mg Q3HP PRN IV PAIN Last administered on 11/05/16 10:26; Start 11/05/16 at 03:45; Stop 11/05/16 at 12:41 ; Status DC Ondansetron HCl (Zofran) 4 mg Q4HP PRN IV NAUSEA OR VOMITING; Start 11/08/16 at 17:45; Stop 11/08/16 at 18:45; Status DC Ondansetron HCl (Zofran) 4 mg Q6HP PRN IV NAUSEA OR VOMITING Last administered on 11/09/16 22:00; Start 11/05/16 at 03:30; Stop 12/08/16 at 03:29 Oxazepam (Serax) 5 mg Q4HP PRN PO anxiety/tremor; Start 11/05/16 at 04:00; Stop 11/05/16 at 04:17; Status DC Oxazepam (Serax) 10 mg Q4HP PRN PO anxiety/tremor; Start 11/05/16 at 04:15; Stop 11/08/16 at 16:07; Status DC Oxazepam (Serax) 10 mg Q8H PO ; Start 11/05/16 at 06:00; Stop 11/08/16 at 16:07 ; Status DC Oxycodone HCl (Roxicodone, Oxyir) 5 mg Q6HP PRN PO PAIN Last administered on 19:38; Start 11/08/16 at 18:45; Stop 11/15/16 at 18:44 Oxycodone/ Acetaminophen (Percocet 5mg/ 325mg Tablet) 1 tab Q4HP PRN PO MILD/ MODERATE PAIN (PS 1-7) Last administered on 11/05/16 08:58; Start 11/05/16 at 03:45; Stop 11/05/16 at 10:15; Status DC Pantoprazole Sodium (Protonix) 40 mg DAILY PO Last administered on 11/10/16 08 :42; Start 11/05/16 at 09:00; Stop 12/08/16 at 08:59 Polyethylene Glycol (Miralax) 1 pkt DAILY PO Last administered on 11/06/16 08: 25; Start 11/05/16 at 09:00; Stop 11/07/16 at 20:35; Status DC Senna (Senokot) 1 tab BID PO Last administered on 11/06/16 08:25; Start at 09:00; Stop 11/07/16 at 20:35; Status DC Senna/Docusate Sodium (Senokot S) 1 tab BID PO Last administered on 11/06/16 08:25; Start 11/05/16 at 09:00; Stop 11/07/16 at 20:35; Status DC Sodium Biphosphate/ Sodium Phosphate (Fleet Enema) 1 ENEMA DAILYPRN PRN AL CONSTIPATION; Start 11/06/16 at 15:15; Stop 12/08/16 at 15:14 Sodium Chloride (Nacl 0.9%) 1,000 ml @ 75 mls/hr [id number] IV Last administered on 11/07/16 08:23; Start 11/05/16 at 03:26; Stop 11/07/16 at 14:54; Status DC Sodium Chloride (Nacl 0.9%) 1,000 ml @ 125 mls/hr Q8H IV Last administered on 11/10/16 05:15; Start 11/07/16 at 15:00; Stop 11/10/16 at 08:43; Status DC Allergies Allergies: Coded Allergies: No Known Allergies (Unverified , NKA, 09/09/03) GME ATTESTATION GME ATTESTATION My preceptor for this patient encounter was physically present in the building during the encounter and was fully available. As needed, all aspects of the patient interview, examination, medical decision making process, and medical care plan development were reviewed and approved by the preceptor. Preceptor is aware and concurs with the plan as stated in the body of this note and will attest to such by his/her cosignature. DAXA EASLEY DO Nov 10, 2016 10:51 Jim Lopez MD Nov 12, 2016 08:17
[2016-11-10 12:00] VITALS: BP 130/95
[2016-11-10] MEDS ORDERED: AMLO5TAB2 PO (12:03)
[2016-11-10] MEDS ORDERED: PROT1TAB2 PO (12:03)
[2016-11-10] MEDS ORDERED: LOVA1CAP17 PO (12:03)
--- NOTE | 2016-11-13 08:29 | DSES ---
DATE OF ADMISSION: 11/05/2016 DATE OF DISCHARGE: 11/10/2016 PRIMARY CARE PROVIDER: Dr. Aashish Jane. CONSULTS: Dr. Lopez, Cardiology and Dr. Greene, Gastroenterology. PROCEDURES: EGD showing normal finding. Colonoscopy showed two diminutive polyps in the sigmoid colon, transverse colon, removed, diverticulosis. Pathology positive for adenomyomatous tubular adenoma. COMPLICATIONS: None. PRIMARY ADMITTING DIAGNOSES: 1. Acute pancreatitis secondary to fenofibrate, abdominal pain secondary to acute pancreatitis, abnormal CT abdomen and pelvis. 2. Adenomyomatous polyp. 3. Bradycardia secondary to atenolol. 4. Hypertension. 5. Cervical myelopathy. 6. Depression. BRIEF HOSPITAL COURSE: Mr. Brenner is a pleasant 56-year-old male with past medical history as mentioned who presented to the ED on 11/05/2016 with complaint of abdominal pain that started 1 week prior to admission. Patient was located diffusely in his abdomen and into back, described as "insistent" associated with nausea, vomiting, constipation, 11 pound weight loss. Prior ED visit recently showed a CT abdomen and pelvis concerning for narrowing in his ascending colon. Upon return to the ED, he had a CT abdomen concerning for acute finding of pancreatitis. Because of his symptom, he was admitted for further evaluation and treatment. His lipase level on admission was 404. He was made n.p.o. status fluid hydration. With treatment, his symptoms very slowly improved. Because of abnormal CT findings from 11/01/2016 showing concerning area of fixed narrowing within the mid to distal ascending colon of 5.8 length appears to be inspissated fecal material proximal to this area of narrowing, also raised concern for fixed lesion. Because of this finding, he was evaluated by Dr. Greene who performed colonoscopy and EGD with results as mentioned above. Throughout his stay, he had episodes of near syncope believed to be secondary to orthostatic hypertension and with fluid hydration, his symptoms resolved. He was also found to be bradycardic with lowest heart rate 38. This was believed to be secondary to effect of atenolol and was evaluated by cardiology who at this time recommended continue holding his beta jackie. Apparently has a history of chest pain also currently, was sent for stress test outpatient. For his other medical conditions, his home medications will continue with exception of atenolol for blood pressure. PHYSICAL EXAMINATION AT TIME OF DISCHARGE: Vital signs: Blood pressure 130/95, heart rate 75, respiration rate 18, pulse ox 93% on room air, temperature 98. Patient was able to tolerate full regular diet the night prior to discharge. General: Patient was sitting in bed comfortable, no acute distress. He is alert, awake, oriented times three, pleasant, cooperative. HEENT: Normocephalic, atraumatic. Moist oral mucosa. Neck: Supple. Trachea midline. Chest: Symmetric chest rise, no accessory muscle use. Breath sounds clear to auscultation bilaterally. Heart: Regular rate and rhythm, S1, S2 present. Abdomen: Soft, mildly tender to palpation bilateral lower quadrant. No guarding. No rebound. No peritoneal signs. Extremities: No pedal edema. Pedal pulses present bilaterally. LABORATORY DATA: WBC 5, hemoglobin 12.1, hematocrit 36.5, platelets 325. Sodium 144, potassium 3.9, chloride 107, carbon dioxide 27, BUN 6, creatinine 0.88. Fasting glucose 104. Calcium 8.4. Liver profile normal. Cardiac marker throughout this admission was normal. Lipid profile showed triglyceride 235, cholesterol 220, LDL 111. Amylase normalized throughout his stay. DISPOSITION: Home. CONDITION: Stable. ACTIVITY: As tolerated. DIET: Low cholesterol. Followup with primary care provider within 1-[address] Lopez's office next week. Dr. Greene's office. DISCHARGE MEDICATION: - amlodipine 5 mg by mouth daily - [place] 3 capsule daily CONTINUE THE FOLLOWING HOME MEDICATIONS: - [place] one tablet every 4 hours as needed - amitriptyline 50 mg by mouth daily at bedtime - baclofen 20 mg by mouth three times daily - Celexa 40 mg by mouth every 2 days - Colace 100 mg by mouth twice daily as needed - 100 mg by mouth daily - Protonix 40 mg by mouth daily - MiraLax 17 grams by mouth daily STOP THE FOLLOWING HOME MEDICATION: - atenolol 50 mg daily until further evaluation by cardiology or primary care provider - fenofibrate 160 mg by mouth daily, this likely was the case of his pancreatitis. Patient has chronic cervical myelopathy leaving him with jerk like movement of his upper extremity and has shaking. This has been reportedly ongoing for years. Recommend patient followup with primary care provider and possibly referred to neurology if not in place already. INSTRUCTIONS: Patient was instructed to return to hospital if he has worsening or recurrence of symptoms or anything else concerning to patient and family. All this was explained to the patient at time of discharge and all questions answered. TIME SPENT: 40 minutes. My preceptor for this patient encounter was Dr. Tan. The preceptor was physically present in the building during the encounter and was fully available. As needed, all aspects of the patient interview, examination, medical decision making process, and medical care plan development were reviewed and approved by the preceptor. The preceptor is aware and concurs with the plan as stated in the body of this note and will attest to such by his/her cosignature.
== END 2016-11-10 15:46 | disposition home or self-care (01) | DRG 440 ==
LOC: M ED 20:57 → M ED INP 11-05 04:01 → M MSPAV 11-05 17:15 → M PCU 11-07 18:33
PROVIDERS: ADMIT Internal Medicine; ATTEND Internal Medicine
PROC: 0DBN8ZX Excision of Sigmoid Colon, Via Natural or Artificial Opening Endoscopic, Diagnostic (ICD-10-PCS; 2016-11-08)
PROC: 0DBL8ZX Excision of Transverse Colon, Via Natural or Artificial Opening Endoscopic, Diagnostic (ICD-10-PCS; 2016-11-08)
PROC: 0DJ08ZZ Inspection of Upper Intestinal Tract, Via Natural or Artificial Opening Endoscopic (ICD-10-PCS; principal; 2016-11-08 07:14)
DX: K85.30 Drug induced acute pancreatitis without necrosis or infection (principal); F10.10 Alcohol abuse, uncomplicated; M54.2 Cervicalgia; F32.9 Major depressive disorder, single episode, unspecified; K76.0 Fatty (change of) liver, not elsewhere classified; K59.00 Constipation, unspecified; K64.8 Other hemorrhoids; K57.30 Diverticulosis of large intestine without perforation or abscess without bleeding; I10 Essential (primary) hypertension; D12.5 Benign neoplasm of sigmoid colon; D12.3 Benign neoplasm of transverse colon; I95.1 Orthostatic hypotension; T46.6X5A Adverse effect of antihyperlipidemic and antiarteriosclerotic drugs, initial encounter; E86.0 Dehydration; K21.9 Gastro-esophageal reflux disease without esophagitis; M21.372 Foot drop, left foot; F41.9 Anxiety disorder, unspecified; R00.1 Bradycardia, unspecified; T44.7X5A Adverse effect of beta-adrenoreceptor antagonists, initial encounter; G25.3 Myoclonus; Z79.899 Other long term (current) drug therapy

== ENCOUNTER 2016-11-14 12:06 | Inpatient (IN) | payer MEDICARE, MEDICAID ==
[~2016-11-14] VITALS: Ht 180.3 cm; Wt 85.9 kg
[~2016-11-14 12:06] MED LIST changes: +AMIT50TA PO; +AMLO5TAB2 PO; +CELE40TA PO; +FENO160T10 PO; +HYDR-3713 PO; +LOVA1CAP17 PO; +MIRA3350 PO; +PROT1TAB2 PO
[2016-11-14] MEDS ORDERED: methylPREDNISolone INJ 125 MG/2 ML VIAL (J2930) As Ordered ONE (13:32)
[2016-11-14] MEDS ORDERED: KETOROLAC 30 MG/ML VIAL (J1885) As Ordered ONE (13:33)
[2016-11-14] MEDS ORDERED: ONDANSETRON 4MG/2ML VIAL (J2405) As Ordered ONE (13:33)
[2016-11-14 13:47] LABS: ALBUMIN 3.7 GM/DL (3.2-5.2); ALBUMIN/GLOBULIN RATIO 0.84 (1.00-1.93); ALKALINE PHOSPHATASE 83 U/L (45-117); ALT/SGPT 40 U/L (12-78); AMYLASE 112 U/L (25-115); ANION GAP 11 MEQ/L (8-16); AST/SGOT 27 U/L (15-37); BILIRUBIN,DIRECT 0.1 MG/DL (0.0-0.2); BILIRUBIN,TOTAL 0.5 MG/DL (0.2-1.0); BLOOD UREA NITROGEN 11 MG/DL (7-18); CALCIUM LEVEL 9.6 MG/DL (8.5-10.1); CARBON DIOXIDE LEVEL 25 MEQ/L (21-32); CHLORIDE LEVEL 102 MEQ/L (98-107); CREATININE FOR GFR 1.02 MG/DL (0.70-1.30); GLOMERULAR FILTRATION RATE > 60.0 (>56); GLUCOSE, FASTING 101 MG/DL (70-105); POTASSIUM SERUM 3.7 MEQ/L (3.5-5.1); SODIUM LEVEL 138 MEQ/L (136-145); TOTAL PROTEIN 8.1 GM/DL (6.4-8.2)
[2016-11-14 13:55] LABS: BASO % 0.1 % (0.0-1.0); EOS % 0.4 % (0.0-3.0); LARGE UNSTAINED CELL # 0.1 K/mm3 (0.0-0.4); LARGE UNSTAINED CELL % 1.2 % (0.0-4.0); LYMPH # 1.5 K/mm3 (1.5-4.5); LYMPH % 17.4 % (24.0-44.0); MEAN CORPUSCULAR HEMOGLOBIN 32.3 pg (27.0-33.0); MEAN CORPUSCULAR HGB CONC 33.1 g/dl (32.0-36.5); MEAN CORPUSCULAR VOLUME 97.6 fl (80.0-96.0); MONO # 0.3 K/mm3 (0.0-0.8); NEUTROPHILS # 6.9 K/mm3 (1.8-7.7); NEUTROPHILS % 77.9 % (36.0-66.0); PLATELET COUNT, AUTOMATED 451 k/mm3 (150-450); RED CELL DISTRIBUTION WIDTH 11.5 % (11.5-14.5); WHITE BLOOD COUNT 8.8 K/mm3 (4.0-10.0)
[2016-11-14 14:01] LABS: INR 0.94
--- NOTE | 2016-11-14 14:30 | REP ---
Abdominal series: Three views. History: Abdominal pain. Comparison chest x-ray November 01, 2016. Findings: Upright chest radiograph is normal. EKG electrodes are seen. There is no evidence of infiltrate or free subdiaphragmatic air. Heart size is normal. Supine and erect views of the abdomen show a few scattered loops of air-filled borderline caliber small bowel with a few small bowel air-fluid levels in the central abdomen. There is an air and stool in a the non-distended colon in the ascending and transverse segments. Psoas margins and flank stripes are intact. There are clips in right upper quadrant post cholecystectomy. Impression: Nonspecific central abdominal small bowel loops with air-fluid levels. No evidence of free air. No infiltrate seen. Clips in the right upper quadrant. Signed by Nate Hoffmann MD 11/14/2016 04:23 P
[2016-11-14] MEDS ORDERED: fentaNYL 100 MCG/2 ML INJECTION (J3010) As Ordered ONE (15:20)
[2016-11-14] MEDS ORDERED: FISH1000 PO (15:42)
[2016-11-14] MEDS ORDERED: AMLO5TAB2 PO (15:42)
[2016-11-14] MEDS ORDERED: PANT40TA2 PO (15:42)
[2016-11-14] MEDS ORDERED: ACETAMINOPHEN TAB 650MG DOSE (2X325MG) PO PRN (16:45)
[2016-11-14] MEDS ORDERED: ONDANSETRON 4MG/2ML VIAL (J2405) IV PRN (16:45)
[2016-11-14] MEDS ORDERED: MORPHINE 2 MG/ML 1ML SYRINGE As Ordered ONE (16:53)
[2016-11-14] MEDS ORDERED: GASTROGRAFIN SOLUTION 30ML (Q9963) As Ordered ONE (18:15)
[2016-11-14] MEDS ORDERED: ISOVUE-370 76% 100ML VIAL (Q9967) As Ordered ONE (19:31)
--- NOTE | 2016-11-14 20:20 | REPUSA ---
CT of the abdomen and pelvis with contrast Clinical statement: Pain in the right groin. Technique: Multiple axial CT images were obtained from the base of the lungs through the floor of the pelvis utilizing 5 mm axial slices after administration of oral and nonionic intravenous contrast. C oronal and sagittal reconstructions were also obtained. Comparison: 11/04/2016. Findings: Chest: The visualized lung bases are clear. Abdomen: The liver, spleen, kidneys, and adrenal glands are unremarkable. The inflammatory changes ar ound the pancreatic head has slightly improved. No abscess or pseudocyst formation is noted. The aort a is within normal limits. There is no evidence of abdominal lymphadenopathy or ascites. Pelvis: The bowel is unremarkable, with no obstructive or inflammatory changes. There is minimal sigm oid diverticulosis. The urinary bladder is within normal limits. The other pelvic structures appear g rossly intact. There is no evidence of pelvic lymphadenopathy or ascites. Bones: There are no suspicious osseous abnormalities seen. There is a mild disc osteophyte complexes degenerative disc disease at L5/S1. Impression: 1. Changes from acute pancreatitis in the pancreatic head has slightly improved since the prior study . 2. No evidence of any hernias. 3. Mild degenerative disc disease at L5/S1. 4. No obstructive or inflammatory bowel changes.
--- NOTE | 2016-11-14 20:32 | HPE ---
DATE OF ADMISSION: 11/14/2016 PRIMARY CARE PROVIDER: Dr. Aashish Jane. CHIEF COMPLAINT: Abdominal pain, rash and facial swelling. HISTORY OF PRESENT ILLNESS: Mr. Brenner is a 56-year-old male with past medical history of pancreatitis, cervical myelopathy with left greater than right, hypertension, who presented to the emergency department (ED) [facility] with complaint of abdominal pain and facial swelling. The patient was recently admitted and discharged on 11/10/2016. At that time, he was found to have acute pancreatitis on laboratories and imaging. There was concern for abnormal CT abdomen and pelvis and he subsequently underwent colonoscopy which showed adenomatous polyps. Because of his hypertension and could not be on beta jackie at that time because of bradycardia, he was then discharged home with [facility]. Fenofibrate at that time was discontinued and replaced with fish oil. States that the day after his discharge, he started having recurrence of his abdominal pain. It actually started from his groin and extended to as high as his chest. Then within the last two days, he noticed that his lips, eyes were swollen with scattered "welts" on his back, arms, buttocks, and feet, associated with episodes of nausea and dry heaving. The last time he was able to keep anything down was the day before yesterday. In the ED, received Solu-Medrol 125 mg times one, ketorolac 30, normal saline one liter, Zofran 4 mg, fentanyl 50 times one. PAST MEDICAL HISTORY: 1. Adenomatous polyps. 2. Cervical myelopathy, left greater than right. 3. Chronic neck pain. 4. Depression. 5. Diverticulosis. 6. Hypertension. PAST SURGICAL HISTORY: 1. Cholecystectomy. 2. Appendectomy. 3. Partial colpectomy C4 to T3 with discectomy. 4. Bilateral inguinal hernia repair 2014. 5. Colonoscopy 2013, showing internal hemorrhoids; October 2016, showing adenomatous polyps; 2010, showing tubular adenomatous polyps. ALLERGIES: No known drug allergies. FAMILY HISTORY: Father of heart attack at 76. Mother of heart attack at 63. Sister of cervical cancer. SOCIAL HISTORY: The patient is a nonsmoker. Drinks alcohol excessively, mostly beer. Can drink up to seven beers a day, but not do it every day. Last drink was three weeks ago. No drug use. Currently is on disability but still occasionally helps with jacky. 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 Currently lives at home with his . No pets. No history of tuberculosis or asbestos. No lifetime travel. HOME MEDICATIONS: - [place] one tablet by mouth every four hours as needed - amitriptyline 50 mg by mouth at bedtime - Norvasc 5 mg by mouth daily - baclofen 20 mg by mouth three times a day as needed - Celexa 40 mg every two days - Colace 100 mg by mouth twice a day - fish oil 1000 mg by mouth daily - losartan 100 mg by mouth daily - Protonix 40 mg by mouth daily - MiraLAX 17 grams by mouth daily Despite his rash and angioedema, he continued to take all his medications up until this morning. REVIEW OF SYSTEMS: GENERAL: Positive for intermittent fevers, chills, but no rigors. Decreased appetite. HEENT: Positive for swelling to his mouth, his lips and his eyes, but no neck, headache, dizziness, lightheadedness, blurry vision. CARDIOVASCULAR: Positive for ankle edema but no chest pain, paroxysmal nocturnal dyspnea, or pillow orthopnea. PULMONARY: Denies shortness of breath, productive cough, hemoptysis. GASTROINTESTINAL: Positive for abdominal pain as mentioned. GENITOURINARY: Positive for burning on urination. Decreased urine output. MUSCULOSKELETAL: Positive for chronic neck pain and back pain. NEUROLOGICAL: Positive for cervical myelopathy, but no headache, lightheadedness, dizziness. ENDOCRINE: No thyroid or diabetes. LYMPHATICS: No new lumps, bumps, or swelling anywhere in neck, axilla, or groin. HEMATOLOGY: No abnormal bleeding or bruising. PSYCHIATRIC: Positive for depression, anxiety. INTEGUMENT: Positive for lesions as mentioned above. PHYSICAL EXAMINATION: VITAL SIGNS: Blood pressure 159/93, heart rate 102, respiratory rate 18, temperature 98.7, pulse oximetry 95% on room air. Body mass index (BMI) 26. GENERAL: The patient is sitting in bed comfortable. No acute distress. Anxious appearing but alert, awake, oriented times three. Pleasant, cooperative. HEENT: Normocephalic. Lips appear swollen compared to my visit with him at discharge; however, per nursing staff this is a lot improved compared to when he first presented. Moist oral mucosa. Good dentition. NECK: No stridor appreciated. Trachea midline. No jugular venous distention (JVD). Posterior cervical spine mildly tender to palpation. CHEST: Symmetric chest rise. No accessory muscle use. Breath sounds were clear to auscultation bilaterally. HEART: Regular rate and rhythm. Normal S1, S2. ABDOMEN: Diffusely tender to palpation. No guarding, no rebound. Bowel sounds present. EXTREMITIES: No pedal edema. Pedal pulses present bilaterally. Lower extremities with ankle-foot orthosis. 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 Reportedly it is chronic for him and is seeing neurosurgeon for this. INTEGUMENT: Scattered erythematous patches on back. It is not tender to palpation. LABORATORY DATA: WBC 8.8, hemoglobin 13.5, hematocrit 40.7, platelets 451. Sodium 138, potassium 3.7, chloride 102, carbon dioxide 25, BUN 11, creatinine 1.02, glucose 101, calcium 9.6. Total bilirubin normal. Liver profile normal. Lipase 606 which is highest that he has been. MICROBIOLOGY: UA positive for cloudy appearance, 3+ blood, 1+ leukocyte esterase, 9 WBC, 62 RBC, 1+ bacteria, nitrite negative. Urine culture pending. IMAGING: Abdominal x-ray showed nonspecific central abdominal small bowel loops with air-fluid levels. No free air. No infiltrate seen. EKG showed sinus rhythm, rate is 99, nonspecific T-wave abnormality. IMPRESSION AND PLAN: Mr. Brenner is a 56-year-old male recently diagnosed with pancreatitis, who presented with recurrence of abdominal pain and swelling of his face. 1. Abdominal pain. X-ray showed nonspecific bowel gas pattern. He also had elevated lipase which is higher than he has had in the past. His new medications are Norvasc, Protonix, and fish oil. Protonix can cause pancreatitis. Continues to deny any alcohol use and his last drink was three weeks ago. We will keep the patient nothing by mouth, start fluid hydration. Because of his persistent worsening abdominal and also bilateral inguinal pain, CT abdomen and pelvis with intravenous (IV) and oral contrast is ordered. Continue pain control. 2. Facial swelling and rash. At this time, it is unclear which medication could have contributed to his symptoms, as he started taking Protonix and Norvasc around the same time. We will discontinue these medications for fear that either medication can cause his symptoms. Recommend that these medications be documented as his allergies to medications. His symptoms are improved, currently is hemodynamically stable without any respiratory distress. Continue to monitor closely. Start (please clarify). 3. Hypertension. Continue with current medication, his home medication of losartan. He cannot have Norvasc. If continues to be elevated, may consider hydralazine. 4. Chronic neck pain with cervical myelopathy. Continues to have twitching and myoclonic and tardive movements. Per patient, he has had this problem ongoing post his surgery, and follows closely with neurosurgery. He will likely require further evaluation as outpatient. 5. His symptoms can be also provoked by amitriptyline, which he takes for chronic back pain. Because of persistent symptoms, he might benefit from decreasing and titrating down and stopping medication for worsening of his symptoms. 6. Deep venous thrombosis (DVT) prophylaxis. Sequential compression devices (SCDs), thromboembolism deterrent stockings (TEDs), and Lovenox. My preceptor for this patient encounter was Dr. Catherine Curtis. The preceptor was physically present in the building during the encounter and was fully available as needed. All aspects of the patient interview, examination, medical decision making process, and medical care plan development were reviewed and approved by the preceptor. The preceptor is aware and concurs with the plan as stated in the body of this note and will attest to such by his/her co-signature.
--- NOTE | 2016-11-14 20:41 | EDDOCDS ---
Physician Documentation [facility] Name: Joao Brenner Age: 56 yrs Sex: Male : 1960 Arrival Date: 11/14/2016 Time: 12:06 Bed 17 Private MD: Aashish Jane H. Disposition: 11/14/16 15:30 Hospitalization ordered by Cristo Curtis for Inpatient Admission. Preliminary diagnosis is Acute pancreatitis, unspecified. - Bed requested for PCU. - Status is Inpatient Admission. mb9 - Condition is Stable. - Problem is an acute exacerbation. - Symptoms are unchanged. Historical: - Allergies: no known allergies; - Home Meds: 1. amitriptyline 50 mg Oral tab 1 tab nightly (Last dose: 11/13/2016) 2. baclofen 20 mg Oral tab daily (Last dose: 11/14/2016) 3. Citalopram 30 mg Oral once daily (Last dose: 11/11/2016) 4. losartan 50 mg oral tab 1 tab once daily (Last dose: 11/14/2016) 5. Miralax 17 gram Oral pwpk 1 packet once daily (Last dose: 11/14/2016) 6. Protonix 40 mg Oral TbEC 1 tab once daily (Last dose: 11/14/2016) 7. amlodipine 5 mg Oral tab 1 tab once daily (Last dose: 11/14/2016) 8. 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 No barriers to communication noted. - Family history: No immediate family members are acutely ill. - : The pt / caregiver states he / she is not on anticoagulants. Home medication list is obtained from the patient, [employer] import data, pill bottles. - Exposure Risk Screening:: None identified. Vital Signs: 11/14 12:08 BP 159 / 93; Pulse 102; Resp 18 S; Temp 98.7(O); Pulse Ox 95% on R/A; Weight 86.18 kg / gr2 189.99 lbs (R); Height 5 ft. 11 in. (180.34 cm) (R); Pain 8/10; 13:35 Pulse 102 MON; mb9 13:36 BP 136 / 76 (auto/); mb9 14:17 BP 122 / 85 (auto/); mb9 14:18 Pulse 98 MON; Pulse Ox 98% ; mb9 14:36 Pulse 94 MON; Pulse Ox 98% ; mb9 14:36 BP 126 / 75 (auto/); mb9 14:54 Pain 10/10; mb9 15:06 Pulse 94 MON; Pulse Ox 95% ; mb9 15:06 BP 113 / 81 (auto/); mb9 16:06 BP 170 / 85 (auto/); mb9 16:06 Pulse 102 MON; mb9 16:56 BP 132 / 72 (auto/); mb9 16:56 Pulse 94 MON; Pulse Ox 95% ; mb9 17:37 BP 146 / 72 (auto/); mb9 17:37 Pulse 76 MON; Pulse Ox 94% ; mb9 18:11 BP 128 / 70 (auto/); mb9 18:11 Pulse 82 MON; Pulse Ox 97% ; mb9 18:37 BP 141 / 78 (auto/); mb9 18:37 Pulse 82 MON; Pulse Ox 97% ; mb9 19:07 BP 139 / 95 (auto/); mb9 19:08 Pulse 94 MON; Pulse Ox 95% ; mb9 19:45 BP 142 / 81; Pulse 89; Resp 17; Temp 98.3(TE); Pulse Ox 97% on R/A; mb9 20:38 BP 147 / 73; Pulse 86; Resp 17; Pulse Ox 98% on R/A; mb9 12:08 Body Mass Index 26.50 (86.18 kg, 180.34 cm) gr2 MDM: 12:28 ECG WITH READING ER PHYS+CARDIAG ordered. EDMS 13:28 NS 0.9% 1000 ml IV at bolus once ordered. ke 13:28 Ondansetron 4 mg IVP once ordered. ke 13:28 IV Saline Lock ordered. ke 13:28 Undress patient appropriately for examination ordered. ke 13:28 ketorolac 30 mg IVP once ordered. ke 13:28 Solu-MEDROL 125 mg IVP once ordered. ke 13:29 Amylase Ordered. EDMS 13:29 Basic Metabolic Profile Ordered. EDMS 13:30 CBC with Diff Ordered. EDMS 13:30 Lipase Ordered. EDMS 13:30 Liver Profile Ordered. EDMS 13:30 Prothrombin Time Profile\E\INR Ordered. EDMS 13:30 Urinalysis Ordered. EDMS 13:30 Urine Culture Ordered. EDMS 13:30 Abdomen, Flat\E\Upright,PA Chest Ordered. EDMS 13:30 NOTHING BY MOUTH+DIET ordered. EDMS 13:37 Financial registration complete. lg 13:51 [facility] Payment Agreement was scanned into [employer] and attached to record. lg 14:03 CBC with Diff Reviewed. ke 14:03 Lipase Reviewed. ke 14:03 Liver Profile Reviewed. ke 14:03 Amylase Reviewed. ke 14:03 Basic Metabolic Profile Reviewed. ke 14:03 Prothrombin Time Profile\E\INR Reviewed. ke 14:07 ETOH Ordered. EDMS 14:58 ETOH Reviewed. ke 15:14 fentaNYL (PF) 50 mcg IVP once ordered. ke 15:15 BED REQUEST+ADM ordered. EDMS 16:40 NPO DIET ordered. EDMS 16:52 morphine 1 mg IVP once ordered. mb9 18:08 CT ABD & PELVIS WITH CONTRAST Ordered. EDMS 18:14 Diatrizoate Meglumine & Sodium Liquid 10 ml PO once; mix in 290cc of water ordered. mb9 18:14 Diatrizoate Meglumine & Sodium Liquid 10 ml PO once; mix in 290cc of water ordered. mb9 18:38 Admission / Observation Status ordered. EDMS 19:33 COMPLETE BLOOD COUNT Ordered. EDMS 19:33 BASIC METABOLIC PROFILE Ordered. EDMS 19:33 LIPASE Ordered. EDMS 19:35 CARDIAC MARKER PANEL Ordered. EDMS 19:35 CARDIAC MARKER PANEL Ordered. EDMS 19:58 CARDIAC MARKER PANEL Ordered. EDMS Administered Medications: 13:47 Drug: ketorolac 30 mg [ketorolac 30 mg/mL (1 mL) injection solution (1 mL)] Route: IVP; mb9 Site: left antecubital; 14:54 Follow up: Pain 10/ Adult; Response: Pain is unchanged, physician notified mb9 13:47 Drug: Solu-MEDROL 125 mg [Solu-Medrol 500 mg intravenous solution (125 mg)] Route: IVP; mb9 Site: left antecubital; 13:48 Drug: NS 0.9% 1000 ml [sodium chloride 0.9 % intravenous solution] Route: IV; Rate: mb9 bolus; Site: left antecubital; 17:06 Follow up: IV Intake: 1000ml mb9 13:48 Drug: Ondansetron 4 mg [ondansetron HCl 2 mg/mL intravenous solution (2 mL)] Route: mb9 IVP; Site: left antecubital; 15:27 Drug: fentaNYL (PF) 50 mcg [fentanyl (PF) 50 mcg/mL injection solution (1 mL)] Route: mb9 IVP; Site: left antecubital; 17:04 Follow up: Response: Pain is decreased mb9 17:04 Drug: morphine 1 mg [morphine 2 mg/mL intravenous cartridge (0.5 mL)] Route: IVP; Site: mb9 left antecubital; 18:24 Drug: Diatrizoate Meglumine & Sodium 10 ml [diatrizoate meglumine and diat.sodium 66 mb9 %-10 % oral solution (10 mL)] Route: PO; 18:56 Drug: Diatrizoate Meglumine & Sodium 10 ml [diatrizoate meglumine and diat.sodium 66 mb9 %-10 % oral solution (10 mL)] Route: PO; Signatures: Dispatcher [employer] EDMS Phoebe Moy, Sung Reg lg Ronald Hernandez, DOOR SERVICEMAN DOOR SERVICEMAN Araseli Soto RN RN cj Magdalena Stockton RN RN ko2 Pj Traylor,RN RN mb9 The chart was reviewed and I authenticate all verbal orders and agree with the evaluation and treatment provided.Corrections: (The following items were deleted from the chart) 19:58 19:37 CARDIAC MARKER PANEL ordered. EDMS EDMS Attachments: 13:51 [facility] Payment Agreement lg [email or web address]
--- NOTE | 2016-11-14 20:41 | EDDOCDS ---
Nurse's Notes [facility] Name: Joao Brenner Age: 56 yrs Sex: Male : 1960 Arrival Date: 11/14/2016 Time: 12:06 Bed 17 Private MD: Aashish Jane H. Diagnosis: Acute pancreatitis, unspecified Presentation: 11/14 12:14 Presenting complaint: Patient states: I was released from hospital here on Sunday for [facility] my pancreatitis, and it is getting worse. At the same time they noticed his heart rate was real low and they changed some of his meds. Today woke up and lips and eyes were swollen with hives on back, arms, buttocks, legs, feet. And abdmonal pain is very bad like last time I was here like I'm having a heart attack or something. Denies difficulty breathing and/or swallowing. also reports nausea and vomiting since last Sunday. Adult Sepsis Screening: The patient does not have new or worsening altered mentation. Patient's respiratory rate is less than 22. Systolic blood pressure is greater than 100. Patient has a qSOFA score of 0- Negative Sepsis Screen. Suicide/Homicide risk assessment- the patient denies having any suicidal and/or homicidal ideations and does not present with any other emotional, behavioral or mental health complaints. Status: Patient is not a home restoration service supervisor or dependent. Transition of care: patient was not received from another setting of care. 12:14 Acuity: TAPAN Level 3 [facility] 12:14 Method Of Arrival: Walkin/Carried/Asstd [facility] Triage Assessment: 12:24 General: Appears uncomfortable, Behavior is agitated, anxious. Pain: Location: chest cjh and abdomen Pain currently is 10 out of 10 on a pain scale. HIV screening NA for this visit Offered previously. Neurological: Level of Consciousness is awake, alert, Oriented to person, place, time. Respiratory: Airway is patent Respiratory effort is even, unlabored, Respiratory pattern is regular, symmetrical. GI: Reports lower abdominal pain, upper abdominal pain, vomiting. Derm: Rash noted that is raised, urticaria. Musculoskeletal: Range of motion limited on left, spastic with foot prosthetic. Historical: - Allergies: no known allergies; - Home Meds: 1. amitriptyline 50 mg Oral tab 1 tab nightly (Last dose: 11/13/2016) 2. baclofen 20 mg Oral tab daily (Last dose: 11/14/2016) 3. Citalopram 30 mg Oral once daily (Last dose: 11/11/2016) 4. losartan 50 mg oral tab 1 tab once daily (Last dose: 11/14/2016) 5. Miralax 17 gram Oral pwpk 1 packet once daily (Last dose: 11/14/2016) 6. Protonix 40 mg Oral TbEC 1 tab once daily (Last dose: 11/14/2016) 7. amlodipine 5 mg Oral tab 1 tab once daily (Last dose: 11/14/2016) 8. 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 No barriers to communication noted. - Family history: No immediate family members are acutely ill. - : The pt / caregiver states he / she is not on anticoagulants. Home medication list is obtained from the patient, [employer] import data, pill bottles. - Exposure Risk Screening:: None identified. Screenin:48 Screening information is obtained from the patient. Fall risk: At risk due to gait mb9 disturbance. Assistance ADL's: requires no assistance with activities of daily living. Abuse/DV Screen: The patient / caregiver reports he/she is: not in a situation that causes fear, pain or injury. Nutritional screening: No deficits noted. Advance Directives: There is no active DNR order. home support is adequate. Assessment: 12:49 General: Appears uncomfortable, Behavior is fussy. Pain: Location: dorsal aspect of mb9 left forearm, left wrist, left hand, palmar aspect of left forearm, lateral aspect of left calf, left lateral ankle and lateral aspect of left foot and abdomen and chest Pain currently is 10 out of 10 on a pain scale. Neurological: Level of Consciousness is awake, alert, Oriented to person, place, time. Cardiovascular: Heart tones S1 S2 present Pulses are all present. Rhythm is sinus tachycardia No ectopy. Respiratory: Airway is patent Respiratory effort is even, unlabored, Breath sounds are clear bilaterally. Breath sounds are diminished in left posterior lower lobe, right posterior middle lobe and right posterior lower lobe. GI: Reports nausea, vomiting. Derm: Rash noted that is on back, chest, abdomen, right arm and left arm Swollen area noted on head, right hand and left hand. 13:24 Reassessment: Patient states symptoms have not improved. General: Appears distressed, mb9 uncomfortable, Behavior is fussy, inappropriate for age. Pain: Location: right hand and head and right arm and back and right posterior lower lobe and right posterior middle lobe and left posterior lower lobe and left leg and left arm and lateral aspect of left foot and left lateral ankle and lateral aspect of left calf Pain currently is 10 out of 10 on a pain scale. Respiratory: Airway is patent Respiratory effort is even, unlabored, Breath sounds are clear bilaterally. Breath sounds are diminished in left posterior lower lobe and right posterior lower lobe Reports at this time pt states, "It's startin to feel scratchy in my throat when I swallow". 15:10 Reassessment: Patient states symptoms have not improved. Adult Sepsis Screening: The mb9 patient does not have new or worsening altered mentation. Patient's respiratory rate is less than 22. Systolic blood pressure is greater than 100. Patient has a qSOFA score of 0- Negative Sepsis Screen. General: Appears uncomfortable, Behavior is fussy. Pain: Location: back and abdomen Pain currently is 10 out of 10 on a pain scale. Respiratory: Airway is patent Respiratory effort is even, unlabored. GI: Reports nausea. 15:12 Derm: the swelling to the pt's bilateral hands and lips appears better than previous mb9 assessment. Swollen area noted. 17:05 Reassessment: Patient states symptoms have improved. Adult Sepsis Screening: The mb9 patient does not have new or worsening altered mentation. Patient's respiratory rate is less than 22. Systolic blood pressure is greater than 100. Patient has a qSOFA score of 0- Negative Sepsis Screen. General: Appears uncomfortable, Behavior is cooperative. Pain: Location: back and abdomen Pain currently is 8 out of 10 on a pain scale. Respiratory: Airway is patent Respiratory effort is even, unlabored. 19:09 Reassessment: Patient appears in no apparent distress at this time. Patient states mb9 symptoms have improved. Adult Sepsis Screening: The patient does not have new or worsening altered mentation. Patient's respiratory rate is less than 22. Systolic blood pressure is greater than 100. Patient has a qSOFA score of 0- Negative Sepsis Screen. General: Appears in no apparent distress, comfortable, Behavior is appropriate for age, cooperative. Pain: Location: abdomen and back Pain currently is 5 out of 10 on a pain scale. Respiratory: Airway is patent Respiratory effort is even, unlabored. 19:46 Reassessment: Patient appears in no apparent distress at this time. Patient states mb9 symptoms have improved. General: Appears uncomfortable, Behavior is appropriate for age, cooperative. Respiratory: Airway is patent Respiratory effort is even, unlabored. 19:48 Neurological: Reports blurred vision pt complains of blurred vision to right eye. Dr bran Giron aware. . 20:22 General: Dr Hendricks in to see pt. . bran 20:38 Reassessment: Patient appears in no apparent distress at this time. Patient states mb9 symptoms have improved. General: Appears in no apparent distress, comfortable, Behavior is appropriate for age, cooperative. Pain: Location: back and abdomen Pain currently is 8 out of 10 on a pain scale. Respiratory: Airway is patent Respiratory effort is even, unlabored. Vital Signs: 12:08 BP 159 / 93; Pulse 102; Resp 18 S; Temp 98.7(O); Pulse Ox 95% on R/A; Weight 86.18 kg gr2 (R); Height 5 ft. 11 in. (180.34 cm) (R); Pain 8/10; 13:35 Pulse 102 MON; mb9 13:36 BP 136 / 76 (auto/); mb9 14:17 BP 122 / 85 (auto/); mb9 14:18 Pulse 98 MON; Pulse Ox 98% ; mb9 14:36 Pulse 94 MON; Pulse Ox 98% ; mb9 14:36 BP 126 / 75 (auto/); mb9 14:54 Pain 10/10; mb9 15:06 Pulse 94 MON; Pulse Ox 95% ; mb9 15:06 BP 113 / 81 (auto/); mb9 16:06 BP 170 / 85 (auto/); mb9 16:06 Pulse 102 MON; mb9 16:56 BP 132 / 72 (auto/); mb9 16:56 Pulse 94 MON; Pulse Ox 95% ; mb9 17:37 BP 146 / 72 (auto/); mb9 17:37 Pulse 76 MON; Pulse Ox 94% ; mb9 18:11 BP 128 / 70 (auto/); mb9 18:11 Pulse 82 MON; Pulse Ox 97% ; mb9 18:37 BP 141 / 78 (auto/); mb9 18:37 Pulse 82 MON; Pulse Ox 97% ; mb9 19:07 BP 139 / 95 (auto/); mb9 19:08 Pulse 94 MON; Pulse Ox 95% ; mb9 19:45 BP 142 / 81; Pulse 89; Resp 17; Temp 98.3(TE); Pulse Ox 97% on R/A; mb9 20:38 BP 147 / 73; Pulse 86; Resp 17; Pulse Ox 98% on R/A; mb9 12:08 Body Mass Index 26.50 (86.18 kg, 180.34 cm) gr2 Vitals: 12:08 Log In Time: November 14, 2016 at 12:08. gr2 ED Course: 12:08 Patient visited by Rosalba Acevedo. gr2 12:08 Aashish Jane is Private Physician. gr2 12:08 Patient moved to Waiting gr2 12:11 Patient visited by Rosalba Acevedo. gr2 12:11 Patient moved to Pre RCE gr2 12:19 Triage Initiated [facility] 12:27 Magdalena Stockton,RN is Primary Nurse. hs1 12:27 Patient moved to 17 hs1 12:38 Patient has correct armband on for positive identification. Placed in gown. Bed in low lr2 position. Call light in reach. Side rails up X2. athletic monitor on. Pulse ox on. NIBP on. 12:39 EKG done. (by ED staff). Reviewed by Brian Khoury MD. lr2 13:03 Patient visited by Reyna Holcomb PCA. ct3 13:18 Ronald Hernandez FNP is PHCP. ke 13:18 Patient visited by Ronald Hernandez FNP. ke 13:18 Patient visited by Ronald Hernandez FNP. ke 13:30 Inserted saline lock: 18 gauge in left antecubital area and blood collected. The mb9 patient tolerated the procedure well. 13:31 Amylase Sent. mb9 13:31 Basic Metabolic Profile Sent. mb9 13:31 CBC with Diff Sent. mb9 13:31 Lipase Sent. mb9 13:31 Liver Profile Sent. mb9 13:31 Prothrombin Time Profile\\E\\INR Sent. mb9 13:51 [facility] Payment Agreement was scanned into [employer] and attached to record. lg 13:58 Patient visited by Ronald Hernandez FNP. ke 14:19 Patient visited by Ronald Hernandez FNP. ke 14:52 Patient visited by Ronald Hernandez FNP. ke 15:17 Abdomen, Flat\\E\\Upright,PA Chest Returned. EDMS 15:26 Patient visited by Ronald Hernandez FNP. ke 15:30 Cristo Curtis MD is Hospitalizing Provider. ke 19:48 The patient / caregiver is instructed regarding the plan of care and ED course. mb9 20:24 CT ABD & PELVIS WITH CONTRAST Returned. EDMS 20:38 No procedures done that require assistance. mb9 Administered Medications: 13:47 Drug: ketorolac 30 mg [ketorolac 30 mg/mL (1 mL) injection solution (1 mL)] Route: IVP; mb9 Site: left antecubital; 14:54 Follow up: Pain 10 Adult; Response: Pain is unchanged, physician notified mb9 13:47 Drug: Solu-MEDROL 125 mg [Solu-Medrol 500 mg intravenous solution (125 mg)] Route: IVP; mb9 Site: left antecubital; 13:48 Drug: NS 0.9% 1000 ml [sodium chloride 0.9 % intravenous solution] Route: IV; Rate: mb9 bolus; Site: left antecubital; 17:06 Follow up: IV Intake: 1000ml mb9 13:48 Drug: Ondansetron 4 mg [ondansetron HCl 2 mg/mL intravenous solution (2 mL)] Route: mb9 IVP; Site: left antecubital; 15:27 Drug: fentaNYL (PF) 50 mcg [fentanyl (PF) 50 mcg/mL injection solution (1 mL)] Route: mb9 IVP; Site: left antecubital; 17:04 Follow up: Response: Pain is decreased mb9 17:04 Drug: morphine 1 mg [morphine 2 mg/mL intravenous cartridge (0.5 mL)] Route: IVP; Site: mb9 left antecubital; 18:24 Drug: Diatrizoate Meglumine & Sodium 10 ml [diatrizoate meglumine and diat.sodium 66 mb9 %-10 % oral solution (10 mL)] Route: PO; 18:56 Drug: Diatrizoate Meglumine & Sodium 10 ml [diatrizoate meglumine and diat.sodium 66 mb9 %-10 % oral solution (10 mL)] Route: PO; Intake: 17:06 IV: 1000.00ml; Total: 1000.00ml. mb9 Output: 20:40 Urine: 450.00ml (Voided); Total: 450.00ml. mb9 Order Results: Lab Order: Amylase; SPEC'M 11/14/16 12:46 Test: AMYLASE; Value: 112; Range: 25-115; Units: U/L; Status: F Lab Order: Basic Metabolic Profile; SPEC'M 11/14/16 12:46 Test: GLUCOSE, FASTING; Value: 101; Range: 70-105; Units: MG/DL; Status: F Test: BLOOD UREA NITROGEN; Value: 11; Range: 7-18; Units: MG/DL; Status: F Test: CREATININE FOR GFR; Value: 1.02; Range: 0.70-1.30; Units: MG/DL; Status: F Test: GLOMERULAR FILTRATION RATE; Value: > 60.0; Range: >56; Status: F Test: SODIUM LEVEL; Value: 138; Range: 136-145; Units: MEQ/L; Status: F Test: POTASSIUM SERUM; Value: 3.7; Range: 3.5-5.1; Units: MEQ/L; Status: F Test: CHLORIDE LEVEL; Value: 102; Range: 98-107; Units: MEQ/L; Status: F Test: CARBON DIOXIDE LEVEL; Value: 25; Range: 21-32; Units: MEQ/L; Status: F Test: ANION GAP; Value: 11; Range: 8-16; Units: MEQ/L; Status: F Test: CALCIUM LEVEL; Value: 9.6; Range: 8.5-10.1; Units: MG/DL; Status: F Test Note: ; Units are mL/min/1.73 m2 Chronic Kidney Disease Staging per NKF: Stage I & II GFR >=60 Normal to Mildly Decreased Stage III GFR 30-59 Moderately Decreased Stage IV GFR 15-29 Severely Decreased Stage V GFR <15 Very Little GFR Left ESRD GFR <15 on [employer] Lab Order: CBC with Diff; SPEC'M 11/14/16 12:46 Test: WHITE BLOOD COUNT; Value: 8.8; Range: 4.0-10.0; Units: K/mm3; Status: F Test: RED BLOOD COUNT; Value: 4.18; Range: 4.30-6.10; Abnormal: Below low normal; Units: M/mm3; Status: F Test: HEMOGLOBIN; Value: 13.5; Range: 14.0-18.0; Abnormal: Below low normal; Units: g/dl; Status: F Test: HEMATOCRIT; Value: 40.7; Range: 42.0-52.0; Abnormal: Below low normal; Units: %; Status: F Test: MEAN CORPUSCULAR VOLUME; Value: 97.6; Range: 80.0-96.0; Abnormal: Above high normal; Units: fl; Status: F Test: MEAN CORPUSCULAR HEMOGLOBIN; Value: 32.3; Range: 27.0-33.0; Units: pg; Status: F Test: MEAN CORPUSCULAR HGB CONC; Value: 33.1; Range: 32.0-36.5; Units: g/dl; Status: F Test: RED CELL DISTRIBUTION WIDTH; Value: 11.5; Range: 11.5-14.5; Units: %; Status: F Test: PLATELET COUNT, AUTOMATED; Value: 451; Range: 150-450; Abnormal: Above high normal; Units: k/mm3; Status: F Test: NEUTROPHILS %; Value: 77.9; Range: 36.0-66.0; Abnormal: Above high normal; Units: %; Status: F Test: LYMPH %; Value: 17.4; Range: 24.0-44.0; Abnormal: Below low normal; Units: %; Status: F Test: MONO %; Value: 3.0; Range: 0.0-5.0; Units: %; Status: F Test: EOS %; Value: 0.4; Range: 0.0-3.0; Units: %; Status: F Test: BASO %; Value: 0.1; Range: 0.0-1.0; Units: %; Status: F Test: LARGE UNSTAINED CELL %; Value: 1.2; Range: 0.0-4.0; Units: %; Status: F Test: NEUTROPHILS #; Value: 6.9; Range: 1.8-7.7; Units: K/mm3; Status: F Test: LYMPH #; Value: 1.5; Range: 1.5-4.5; Units: K/mm3; Status: F Test: MONO #; Value: 0.3; Range: 0.0-0.8; Units: K/mm3; Status: F Test: EOS #; Value: 0.0; Range: 0.0-0.50; Units: K/mm3; Status: F Test: BASO #; Value: 0.0; Range: 0.0-0.2; Units: K/mm3; Status: F Test: LARGE UNSTAINED CELL #; Value: 0.1; Range: 0.0-0.4; Units: K/mm3; Status: F Lab Order: Lipase; SPEC'M 11/14/16 12:46 Test: LIPASE; Value: 606; Range: 73-393; Abnormal: Above high normal; Units: U/L; Status: F Lab Order: Liver Profile; SPEC'M 11/14/16 12:46 Test: AST/SGOT; Value: 27; Range: 15-37; Units: U/L; Status: F Test: ALT/SGPT; Value: 40; Range: 12-78; Units: U/L; Status: F Test: ALKALINE PHOSPHATASE; Value: 83; Range: 45-117; Units: U/L; Status: F Test: BILIRUBIN,TOTAL; Value: 0.5; Range: 0.2-1.0; Units: MG/DL; Status: F Test: BILIRUBIN,DIRECT; Value: 0.1; Range: 0.0-0.2; Units: MG/DL; Status: F Test: TOTAL PROTEIN; Value: 8.1; Range: 6.4-8.2; Units: GM/DL; Status: F Test: ALBUMIN; Value: 3.7; Range: 3.2-5.2; Units: GM/DL; Status: F Test: ALBUMIN/GLOBULIN RATIO; Value: 0.84; Range: 1.00-1.93; Abnormal: Below low normal; Status: F Lab Order: Prothrombin Time Profile\\E\\INR; SPEC'M 11/14/16 12:46 Test: PROTHROMBIN TIME; Value: 12.7; Range: 12.3-14.5; Units: SECONDS; Status: F Test: INR; Value: 0.94; Status: F Test Note: ; THERAPUTIC HUMAN INR VALUES INDICATIONS NORMAL RANGES PROPHYLAXIS/TREATMENT OF: VENOUS THROMBOSIS 2.0-3.0 PULMONARY EMBOLISM 2.0-3.0 PREVENTION OF SYSTEMIC EMBOLISM FROM: TISSUE HEART VALVES 2.0-3.0 ACUTE MYOCARDIAL INFARCTION 2.0-3.0 VALVULAR HEART DISEASE 2.0-3.0 ATRIAL FIBRILLATION 2.0-3.0 MECHANICAL VALVES(HIGH RISK) 2.5-3.5 RECURRENT MYOCARDIAL INFARCTION 2.5-3.5 Lab Order: Urinalysis; SPEC'M 11/14/16 16:12 Test: APPEARANCE, URINE; Value: CLOUDY; Range: CLEAR; Abnormal: Above high normal; Status: F Test: COLOR, URINE; Value: YELLOW; Range: YELLOW; Status: F Test: PH,URINE; Value: 5.0; Range: 5.0-9.0; Units: UNITS; Status: F Test: SPECIFIC GRAVITY URINE AUTO; Value: 1.020; Range: 1.002-1.035; Status: F Test: PROTEIN, URINE AUTO; Value: NEGATIVE; Range: NEGATIVE; Units: mg/dL; Status: F Test: GLUCOSE, URINE (UA) AUTO; Value: NEGATIVE; Range: NEGATIVE; Units: mg/dL; Status: F Test: KETONE, URINE AUTO; Value: NEGATIVE; Range: NEGATIVE; Units: mg/dL; Status: F Test: UROBILINOGEN, URINE AUTO; Value: 0.2; Range: 0.0-2.0; Units: mg/dL; Status: F Test: BILIRUBIN, URINE AUTO; Value: NEGATIVE; Range: NEGATIVE; Status: F Test: NITRITE, URINE AUTO; Value: NEGATIVE; Range: NEGATIVE; Status: F Test: LEUKOCYTE ESTERASE, URINE AUTO; Value: 1+; Range: NEGATIVE; Abnormal: Above high normal; Status: F Test: BLOOD, URINE BLOOD; Value: 3+; Range: NEGATIVE; Abnormal: Above high normal; Status: F Test: WBC, URINE AUTO; Value: 9; Range: 0-3; Abnormal: Above high normal; Units: /HPF; Status: F Test: RBC, URINE AUTO; Value: 62; Range: 0-3; Abnormal: Above high normal; Units: /HPF; Status: F Test: BACTERIA, URINE AUTO; Value: 1+; Range: NEGATIVE; Abnormal: Above high normal; Status: F Test: SQUAMOUS EPITHELIAL CELL UR AU; Value: 1; Range: 0-6; Units: /HPF; Status: F Test: MUCUS, URINE; Value: SMALL; Range: NEGATIVE; Status: F Test: HYALINE CAST, URINE AUTO; Value: 0; Range: 0-1; Units: /LPF; Status: F Test: AMORPHOUS SEDIMENT; Value: SMALL; Range: NEGATIVE; Abnormal: Above high normal; Status: F Lab Order: ETOH; SPEC'M 11/14/16 12:46 Test: ETHYL ALCOHOL (ETHANOL); Value: 0.004; Range: 0.000-0.010; Units: %; Status: F Lab Order: CARDIAC MARKER PANEL; SPEC'M 11/14/16 12:46 Test: CPK CREATINE PHOSPHOKINASE; Value: 52; Range: 39-308; Units: U/L; Status: F Test: CK-MB VALUE MASS; Value: 1.0; Range: 0.0-3.6; Units: NG/ML; Status: F Test: MB/CK RELATIVE INDEX; Value: 1.92; Range: < OR =4; Status: F Test: TROPONIN I; Value: < 0.02; Range: < 0.10; Units: NG/ML; Status: F Test Note: ; DIAGNOSIS CRITERIA MMB ng/ml Relative Index (RI) NON-AMI < or = 5 N/A [place]ONE > 5 < or = 4 AMI > 5 > 4 Radiology Order: Abdomen, Flat\\E\\Upright,PA Chest Test: Abdomen, Flat\\E\\Upright,PA Chest REASON FOR EXAMINATION: Abdomen Pain; Abdominal series: Three views.; ; History: Abdominal pain.; ; Comparison chest x-ray November 01, 2016.; ; Findings: Upright chest radiograph is normal. EKG electrodes are seen. There; is no evidence of infiltrate or free subdiaphragmatic air. Heart size is; normal.; ; Supine and erect views of the abdomen show a few scattered loops of air-filled; borderline caliber small bowel with a few small bowel air-fluid levels in the; central abdomen. There is an air and stool in a the non-distended colon in the; ascending and transverse segments. Psoas margins and flank stripes are intact.; There are clips in right upper quadrant post cholecystectomy.; ; Impression:; ; Nonspecific central abdominal small bowel loops with air-fluid levels. No; evidence of free air. No infiltrate seen. Clips in the right upper quadrant.; ; ; Signed by; Nate Hoffmann MD 11/14/2016 04:23 P; Radiology Order: CT ABD & PELVIS WITH CONTRAST Test: CT ABD & PELVIS WITH CONTRAST REASON FOR EXAMINATION: worsening abdominal and groin pain, po/iv contrast; ; CT of the abdomen and pelvis with contrast; Clinical statement: Pain in the right groin.; Technique: Multiple axial CT images were obtained from the base of the lungs through the floor of the; pelvis utilizing 5 mm axial slices after administration of oral and nonionic intravenous contrast. C; oronal and sagittal reconstructions were also obtained.; Comparison: 11/04/2016.; Findings:; Chest: The visualized lung bases are clear.; Abdomen: The liver, spleen, kidneys, and adrenal glands are unremarkable. The inflammatory changes ar; ound the pancreatic head has slightly improved. No abscess or pseudocyst formation is noted. The aort; a is within normal limits. There is no evidence of abdominal lymphadenopathy or ascites.; Pelvis: The bowel is unremarkable, with no obstructive or inflammatory changes. There is minimal sigm; oid diverticulosis. The urinary bladder is within normal limits. The other pelvic structures appear g; rossly intact. There is no evidence of pelvic lymphadenopathy or ascites.; Bones: There are no suspicious osseous abnormalities seen. There is a mild disc osteophyte complexes; degenerative disc disease at L5/S1.; Impression:; 1. Changes from acute pancreatitis in the pancreatic head has slightly improved since the prior study; .; 2. No evidence of any hernias.; 3. Mild degenerative disc disease at L5/S1.; 4. No obstructive or inflammatory bowel changes.; ; Outcome: 15:30 Decision to Hospitalize by Provider. ke 20:38 Discharge Assessment: patient administered narcotics - yes. Patient was admitted to the [address] or transferred to another facility. The following High Risk Discharge criteria are identified: None. Discharged to home ambulatory. Condition: good Condition: stable Condition: improved. CT Study completed. Property :Personal belongings accompany Pt. 20:40 Patient left the ED. mb9 Signatures: Dispatcher [employer] EDPhoebe Roberts, Reg Reg lg Ronald Hernandez, INSTALLMENT DEALER INSTALLMENT DEALER Love Ramey RN RN hs1 Reyna Holcomb, HOME HEALTH CARE SOCIAL WORKER HOME HEALTH CARE SOCIAL WORKER ct3 Araseli HuntRN RN [facility] Rosalba Acevedo 2 Pj Traylor RN RN mb9 Barbara Everett MTDD
[2016-11-14 20:45] VITALS: BP 148/84
[2016-11-14] MEDS ORDERED: AMITRIPTYLINE 50 MG TAB PO SCH ×2 (21:00)
[2016-11-14 21:04] VITALS: BP 148/84
[2016-11-14] MEDS: CitaloPRAM (CeleXA) 20 MG TAB PO SCH (21:41)
[2016-11-14] MEDS: MORPHINE 2 MG/ML 1ML SYRINGE IV PRN (21:42)
[2016-11-14] MEDS: NS 1,000 ML IV SCH (21:46)
[2016-11-14] MEDS: BACLOFEN 10 MG TAB PO PRN (23:06)
[2016-11-14 23:59] VITALS: BP 119/56
[2016-11-15] MEDS: MORPHINE 2 MG/ML 1ML SYRINGE IV PRN ×5 (03:44→22:13)
[2016-11-15] MEDS: NS 1,000 ML IV SCH ×5 (03:49→23:13)
[2016-11-15 04:45] VITALS: BP 120/62
[2016-11-15 05:50] LABS: MEAN CORPUSCULAR HEMOGLOBIN 32.6 pg (27.0-33.0); MEAN CORPUSCULAR VOLUME 98.6 fl (80.0-96.0); RED CELL DISTRIBUTION WIDTH 11.4 % (11.5-14.5); WHITE BLOOD COUNT 7.4 K/mm3 (4.0-10.0)
[2016-11-15 06:14] LABS: ANION GAP 10 MEQ/L (8-16); BLOOD UREA NITROGEN 11 MG/DL (7-18); CALCIUM LEVEL 8.4 MG/DL (8.5-10.1); CARBON DIOXIDE LEVEL 25 MEQ/L (21-32); CHLORIDE LEVEL 107 MEQ/L (98-107); CREATININE FOR GFR 0.84 MG/DL (0.70-1.30); GLOMERULAR FILTRATION RATE > 60.0 (>56); GLUCOSE, FASTING 117 MG/DL (70-105); POTASSIUM SERUM 4.1 MEQ/L (3.5-5.1); SODIUM LEVEL 142 MEQ/L (136-145)
--- NOTE | 2016-11-15 08:03 | ECGEPIP ---
Stationary ECG Study [facility] - ED Test Date: 2016-11-14 Pat Name: ANA CORNEJO Department: Room: - Gender: M Edi Architect: : [id number] Requested By: EVAN Sutherland Order Number: [id number] Reading MD: Jayla Flowers Measurements Intervals [place] Rate: 99 P: 24 CA: 124 QRS: 24 QRSD: 90 T: 15 QT: 325 QTc: 418 Interpretive Statements SINUS RHYTHM NONSPECIFIC T-WAVE ABNORMALITY INCREASED RATE 11/08/16 Electronically Signed On 11-15-2016 8:03:28 EST by Jayla Flowers
[2016-11-15] MEDS: LOSARTAN 50 MG TAB PO SCH (08:25)
[2016-11-15] MEDS: ENOXAPARIN 40 MG/0.4 ML SYRINGE (J1650) SC SCH (08:25)
[2016-11-15 08:30] VITALS: BP 150/84
[2016-11-15 10:40] VITALS: BP 150/77
[2016-11-15 14:00] VITALS: BP 145/81
[2016-11-15] MEDS: hydrOXYzine 10 MG TAB PO PRN (18:25)
[2016-11-15] MEDS: predniSONE 20 MG TAB PO SCH (19:06)
--- NOTE | 2016-11-15 19:25 | IPN ---
DATE: 11/15/2016 SUBJECTIVE: The patient is seen and examined in the room today. The patient stated his abdominal pain showed some improvement. The patient's urticaria rash upper and lower extremities shows improvement; however, the patient started noting to have swelling bumps on the skull and started getting itchy. No other complaints. OBJECTIVE: VITAL SIGNS: Temperature is 96.9, pulse 77, respirations 18, blood pressure is 150/77, pulse oximetry 90% on room air. GENERAL: No sign of acute distress. Alert and oriented times three. HEENT: Normocephalic, atraumatic. Extraocular motor grossly intact. CARDIOVASCULAR: Positive S1, S2. Regular rate. LUNGS: Clear to auscultation bilaterally. ABDOMEN: Some tenderness to palpation mainly in the lower abdomen. Bowel sounds present. EXTREMITIES: Some still residual erythema and urticarious type rash and swelling throughout, but improved. On the skull, there are multiple swellings palpated. LABORATORY DATA: WBC 7.4, hemoglobin 11.2, hematocrit 34, platelet count 383. Sodium 142, potassium 4.1, chloride 107, carbon dioxide 25, BUN 11, creatinine 0.84, GFR greater than 60, fasting glucose 117, calcium 8.4. Total CK is 37, troponin I less than 0.02. Lipase is 270. ASSESSMENT AND PLAN: 1. Pancreatitis. The patient's lipase shows significant improvement. Subjectively, the patient also noted to have decrease of his abdominal pain. The patient is still afraid to start oral intake. We will continue with current conservative management. The patient will continue on intravenous (IV) fluids. We may start to resume the diet slowly from the liquid diet tomorrow morning. 2. Urticaria, probably secondary to medications. The culprit seems to be Protonix versus Norvasc. On the day of admission, the patient had received a high dose of steroid, IV Solu-Medrol 125 mg. The patient's symptoms started to improve; however, the patient started to have recurrence of the pruritus, and I will continue with oral steroids. The patient has hydroxyzine for the itchiness. 3. Hypertension. Continue current medication. 4. Chronic neck pain with cervical myelopathy. The patient has a twitching mono clonic-tonic movements. The patient stated he is at his baseline. 5. Depression: on celexa and elivil 5. Deep venous thrombosis (DVT) prophylaxis. The patient is on Lovenox. MTDD
[2016-11-15 22:00] VITALS: BP 140/80
[2016-11-15] MEDS: AMITRIPTYLINE 25 MG TAB PO SCH (22:12)
[2016-11-16] MEDS: hydrOXYzine 10 MG TAB PO PRN (01:25)
[2016-11-16] MEDS: NS 1,000 ML IV SCH ×2 (05:30→15:16)
[2016-11-16] MEDS: DOCUSATE SODIUM 100 MG CAP PO PRN (05:30)
[2016-11-16 06:00] VITALS: BP 144/77
[2016-11-16] MEDS: predniSONE 20 MG TAB PO SCH ×2 (08:42→20:19)
[2016-11-16] MEDS: LOSARTAN 50 MG TAB PO SCH (08:42)
[2016-11-16] MEDS: CitaloPRAM (CeleXA) 20 MG TAB PO SCH (08:42)
[2016-11-16] MEDS: ENOXAPARIN 40 MG/0.4 ML SYRINGE (J1650) SC SCH (08:43)
[2016-11-16] MEDS: MORPHINE 2 MG/ML 1ML SYRINGE IV PRN (08:44)
[2016-11-16 08:53] LABS: EOS % 0.6 % (0.0-3.0); LARGE UNSTAINED CELL % 0.5 % (0.0-4.0); LYMPH # 1.2 K/mm3 (1.5-4.5); LYMPH % 15.7 % (24.0-44.0); MEAN CORPUSCULAR HEMOGLOBIN 32.4 pg (27.0-33.0); MEAN CORPUSCULAR HGB CONC 33.4 g/dl (32.0-36.5); MEAN CORPUSCULAR VOLUME 97.1 fl (80.0-96.0); MONO # 0.2 K/mm3 (0.0-0.8); MONO % 3.3 % (0.0-5.0); NEUTROPHILS # 5.9 K/mm3 (1.8-7.7); NEUTROPHILS % 79.9 % (36.0-66.0); PLATELET COUNT, AUTOMATED 366 k/mm3 (150-450); RED CELL DISTRIBUTION WIDTH 11.5 % (11.5-14.5); WHITE BLOOD COUNT 7.4 K/mm3 (4.0-10.0)
[2016-11-16 09:06] LABS: ANION GAP 9 MEQ/L (8-16); BLOOD UREA NITROGEN 10 MG/DL (7-18); CALCIUM LEVEL 8.4 MG/DL (8.5-10.1); CARBON DIOXIDE LEVEL 25 MEQ/L (21-32); CHLORIDE LEVEL 108 MEQ/L (98-107); CREATININE FOR GFR 0.74 MG/DL (0.70-1.30); GLOMERULAR FILTRATION RATE > 60.0 (>56); GLUCOSE, FASTING 105 MG/DL (70-105); POTASSIUM SERUM 3.8 MEQ/L (3.5-5.1); SODIUM LEVEL 142 MEQ/L (136-145)
[2016-11-16 14:00] VITALS: BP 149/94
--- NOTE | 2016-11-16 16:14 | IPN ---
DATE: 11/16/2016 SUBJECTIVE: Patient seen and examined in the room today. The patient's rash, wheal and pruritus has been improving after the additional dose of prednisone. The patient also noted his abdominal pain shows continued improvement while the patient is on nothing by mouth with current pain management medication. No overnight events were reported. The patient stated he is willing to advance his diet to clear liquids, but he does not feel he is ready for a solid diet. OBJECTIVE: VITAL SIGNS: Temperature is 96.9, pulse is 64, respirations 16, blood pressure is 144/77, pulse oximetry is 92% in room air. GENERAL: No signs of acute distress. Alert and oriented times three. HEENT: Normocephalic, atraumatic. Extraocular motor grossly intact. CARDIOVASCULAR: Positive S1, S2, regular rate. LUNGS: Clear to auscultation bilaterally. ABDOMEN: Still some tenderness to palpation but improved compared to yesterday. Bowel sounds present. EXTREMITIES: The erythema and the urticaria-type rash is almost resolved. No lower extremity edema. No sign of cyanosis. LABORATORY DATA: WBC is 7.4, hemoglobin 11.5, hematocrit 34.3, platelet count is 366. Sodium is 142, potassium 3.8, chloride is 108, carbon dioxide 25, BUN is 10, creatinine 0.74, GFR greater than 60, fasting glucose 105, calcium is 8.4, lipase is 381. ASSESSMENT AND PLAN: 1. Pancreatitis. The patient has been nothing by mouth with intravenous fluid and the patient is on pain control. The patient's lipase shows improvement and clinically, the patient also has improvement of the pain. Will advance diet to liquid to see if the patient can tolerate it. Since this is recurrent pancreatitis, we will advance diet slowly. 2. Urticaria. Possibly secondary to medication allergies. The possible candidates are Protonix versus Norvasc, those two or the new medication started recently. The patient had a high dose of IV Solu-Medrol 125 times one. The patient has mild flare of the symptoms. Therefore, the patient is currently on oral prednisone. Patient taking hydroxyzine for the pruritus, symptoms are improving. Will consider tapering the steroids tomorrow. 3. Hypertension. Continue current medications. The patient's blood pressure is in satisfactory range. The patient is currently taking losartan 100 mg by mouth daily. 4. Chronic back pain and cervical myelopathy. The patient has chronic twitching, tonic-clonic type of movements. Patient stated he is at his baseline. The patient is also on baclofen. 5. Depression. The patient is currently taking Celexa 40 mg by mouth every 2 days, and the patient is on amitriptyline 25 mg by mouth nightly. 6. Deep vein thrombosis (DVT) prophylaxis. The patient is on Lovenox. MTDD
[2016-11-16] MEDS: AMITRIPTYLINE 25 MG TAB PO SCH (20:19)
--- NOTE | 2016-11-16 21:41 | EDDOCDS ---
Physician Documentation [facility] [facility] Name: Joao Brenner Age: 56 yrs Sex: Male : 1960 Arrival Date: 11/14/2016 Time: 12:06 Bed 17 Private MD: Aashish Jane H. Disposition: 11/14/16 15:30 Hospitalization ordered by Cristo Curtis for Inpatient Admission. Preliminary diagnosis is Acute pancreatitis, unspecified. - Bed requested for PCU. - Status is Inpatient Admission. mb9 - Condition is Stable. - Problem is an acute exacerbation. - Symptoms are unchanged. Historical: - Allergies: no known allergies; - Home Meds: 1. amitriptyline 50 mg Oral tab 1 tab nightly (Last dose: 11/13/2016) 2. baclofen 20 mg Oral tab daily (Last dose: 11/14/2016) 3. Citalopram 30 mg Oral once daily (Last dose: 11/11/2016) 4. losartan 50 mg oral tab 1 tab once daily (Last dose: 11/14/2016) 5. Miralax 17 gram Oral pwpk 1 packet once daily (Last dose: 11/14/2016) 6. Protonix 40 mg Oral TbEC 1 tab once daily (Last dose: 11/14/2016) 7. amlodipine 5 mg Oral tab 1 tab once daily (Last dose: 11/14/2016) 8. 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 No barriers to communication noted. - Family history: No immediate family members are acutely ill. - : The pt / caregiver states he / she is not on anticoagulants. Home medication list is obtained from the patient, [employer] import data, pill bottles. - Exposure Risk Screening:: None identified. Vital Signs: 11/14 12:08 BP 159 / 93; Pulse 102; Resp 18 S; Temp 98.7(O); Pulse Ox 95% on R/A; Weight 86.18 kg / gr2 189.99 lbs (R); Height 5 ft. 11 in. (180.34 cm) (R); Pain 8/10; 13:35 Pulse 102 MON; mb9 13:36 BP 136 / 76 (auto/); mb9 14:17 BP 122 / 85 (auto/); mb9 14:18 Pulse 98 MON; Pulse Ox 98% ; mb9 14:36 Pulse 94 MON; Pulse Ox 98% ; mb9 14:36 BP 126 / 75 (auto/); mb9 14:54 Pain 10/10; mb9 15:06 Pulse 94 MON; Pulse Ox 95% ; mb9 15:06 BP 113 / 81 (auto/); mb9 16:06 BP 170 / 85 (auto/); mb9 16:06 Pulse 102 MON; mb9 16:56 BP 132 / 72 (auto/); mb9 16:56 Pulse 94 MON; Pulse Ox 95% ; mb9 17:37 BP 146 / 72 (auto/); mb9 17:37 Pulse 76 MON; Pulse Ox 94% ; mb9 18:11 BP 128 / 70 (auto/); mb9 18:11 Pulse 82 MON; Pulse Ox 97% ; mb9 18:37 BP 141 / 78 (auto/); mb9 18:37 Pulse 82 MON; Pulse Ox 97% ; mb9 19:07 BP 139 / 95 (auto/); mb9 19:08 Pulse 94 MON; Pulse Ox 95% ; mb9 19:45 BP 142 / 81; Pulse 89; Resp 17; Temp 98.3(TE); Pulse Ox 97% on R/A; mb9 20:38 BP 147 / 73; Pulse 86; Resp 17; Pulse Ox 98% on R/A; mb9 12:08 Body Mass Index 26.50 (86.18 kg, 180.34 cm) gr2 MDM: 12:28 ECG WITH READING ER PHYS+CARDIAG ordered. EDMS 13:28 NS 0.9% 1000 ml IV at bolus once ordered. ke 13:28 Ondansetron 4 mg IVP once ordered. ke 13:28 IV Saline Lock ordered. ke 13:28 Undress patient appropriately for examination ordered. ke 13:28 ketorolac 30 mg IVP once ordered. ke 13:28 Solu-MEDROL 125 mg IVP once ordered. ke 13:29 Amylase Ordered. EDMS 13:29 Basic Metabolic Profile Ordered. EDMS 13:30 CBC with Diff Ordered. EDMS 13:30 Lipase Ordered. EDMS 13:30 Liver Profile Ordered. EDMS 13:30 Prothrombin Time Profile\E\INR Ordered. EDMS 13:30 Urinalysis Ordered. EDMS 13:30 Urine Culture Ordered. EDMS 13:30 Abdomen, Flat\E\Upright,PA Chest Ordered. EDMS 13:30 NOTHING BY MOUTH+DIET ordered. EDMS 13:37 Financial registration complete. lg 13:51 [facility] Payment Agreement was scanned into [facility] and attached to record. lg 14:03 CBC with Diff Reviewed. ke 14:03 Lipase Reviewed. ke 14:03 Liver Profile Reviewed. ke 14:03 Amylase Reviewed. ke 14:03 Basic Metabolic Profile Reviewed. ke 14:03 Prothrombin Time Profile\E\INR Reviewed. ke 14:07 ETOH Ordered. EDMS 14:58 ETOH Reviewed. ke 15:14 fentaNYL (PF) 50 mcg IVP once ordered. ke 15:15 BED REQUEST+ADM ordered. EDMS 16:40 NPO DIET ordered. EDMS 16:52 morphine 1 mg IVP once ordered. mb9 18:08 CT ABD & PELVIS WITH CONTRAST Ordered. EDMS 18:14 Diatrizoate Meglumine & Sodium Liquid 10 ml PO once; mix in 290cc of water ordered. mb9 18:14 Diatrizoate Meglumine & Sodium Liquid 10 ml PO once; mix in 290cc of water ordered. mb9 18:38 Admission / Observation Status ordered. EDMS 19:33 COMPLETE BLOOD COUNT Ordered. EDMS 19:33 BASIC METABOLIC PROFILE Ordered. EDMS 19:33 LIPASE Ordered. EDMS 19:35 CARDIAC MARKER PANEL Ordered. EDMS 19:35 CARDIAC MARKER PANEL Ordered. EDMS 19:58 CARDIAC MARKER PANEL Ordered. EDMS 11/15 12:17 T-Sheet-- Draft Copy was scanned into [facility] and attached to record. gb 12:18 ECG/EKG was scanned into [facility] and attached to record. gb 12:18 Radiology Report was scanned into [facility] and attached to record. gb Administered Medications: 11/14 13:47 Drug: ketorolac 30 mg [ketorolac 30 mg/mL (1 mL) injection solution (1 mL)] Route: IVP; mb9 Site: left antecubital; 14:54 Follow up: Pain 07/24 Adult; Response: Pain is unchanged, physician notified mb9 13:47 Drug: Solu-MEDROL 125 mg [Solu-Medrol 500 mg intravenous solution (125 mg)] Route: IVP; mb9 Site: left antecubital; 13:48 Drug: NS 0.9% 1000 ml [sodium chloride 0.9 % intravenous solution] Route: IV; Rate: mb9 bolus; Site: left antecubital; 17:06 Follow up: IV Intake: 1000ml mb9 13:48 Drug: Ondansetron 4 mg [ondansetron HCl 2 mg/mL intravenous solution (2 mL)] Route: mb9 IVP; Site: left antecubital; 15:27 Drug: fentaNYL (PF) 50 mcg [fentanyl (PF) 50 mcg/mL injection solution (1 mL)] Route: mb9 IVP; Site: left antecubital; 17:04 Follow up: Response: Pain is decreased mb9 17:04 Drug: morphine 1 mg [morphine 2 mg/mL intravenous cartridge (0.5 mL)] Route: IVP; Site: mb9 left antecubital; 18:24 Drug: Diatrizoate Meglumine & Sodium 10 ml [diatrizoate meglumine and diat.sodium 66 mb9 %-10 % oral solution (10 mL)] Route: PO; 18:56 Drug: Diatrizoate Meglumine & Sodium 10 ml [diatrizoate meglumine and diat.sodium 66 mb9 %-10 % oral solution (10 mL)] Route: PO; Signatures: Dispatcher [employer] EDMS Heather Eugene, Reg Reg gb Phoebe Moy, Reg Reg lg Ronald Hernandez, SOFTWARE ENGINEERING PROJECT MANAGER SOFTWARE ENGINEERING PROJECT MANAGER Araseli SotoRN RN [facility] Magdalena Stockton RN RN Pj Reese,RN RN mb9 The chart was reviewed and I authenticate all verbal orders and agree with the evaluation and treatment provided.Corrections: (The following items were deleted from the chart) 19:58 19:37 CARDIAC MARKER PANEL ordered. EDFL EDMS Attachments: 13:51 [facility] Payment Agreement lg 11/15 12:17 T-Sheet-- Draft Copy gb 12:18 ECG/EKG gb Chart Complete MTDD
--- NOTE | 2016-11-16 21:41 | EDDOCDS ---
Nurse's Notes [facility] Name: Joao Brenner Age: 56 yrs Sex: Male : 1960 Arrival Date: 11/14/2016 Time: 12:06 Bed 17 Private MD: Aashish Jane H. Diagnosis: Acute pancreatitis, unspecified Presentation: 11/14 12:14 Presenting complaint: Patient states: I was released from hospital here on Sunday for [facility] my pancreatitis, and it is getting worse. At the same time they noticed his heart rate was real low and they changed some of his meds. Today woke up and lips and eyes were swollen with hives on back, arms, buttocks, legs, feet. And abdmonal pain is very bad like last time I was here like I'm having a heart attack or something. Denies difficulty breathing and/or swallowing. also reports nausea and vomiting since last Sunday. Adult Sepsis Screening: The patient does not have new or worsening altered mentation. Patient's respiratory rate is less than 22. Systolic blood pressure is greater than 100. Patient has a qSOFA score of 0- Negative Sepsis Screen. Suicide/Homicide risk assessment- the patient denies having any suicidal and/or homicidal ideations and does not present with any other emotional, behavioral or mental health complaints. Status: Patient is not a auto specialty services manager or dependent. Transition of care: patient was not received from another setting of care. 12:14 Acuity: TAPAN Level 3 [facility] 12:14 Method Of Arrival: Walkin/Carried/Asstd [facility] Triage Assessment: 12:24 General: Appears uncomfortable, Behavior is agitated, anxious. Pain: Location: chest cjh and abdomen Pain currently is 10 out of 10 on a pain scale. HIV screening NA for this visit Offered previously. Neurological: Level of Consciousness is awake, alert, Oriented to person, place, time. Respiratory: Airway is patent Respiratory effort is even, unlabored, Respiratory pattern is regular, symmetrical. GI: Reports lower abdominal pain, upper abdominal pain, vomiting. Derm: Rash noted that is raised, urticaria. Musculoskeletal: Range of motion limited on left, spastic with foot prosthetic. Historical: - Allergies: no known allergies; - Home Meds: 1. amitriptyline 50 mg Oral tab 1 tab nightly (Last dose: 11/13/2016) 2. baclofen 20 mg Oral tab daily (Last dose: 11/14/2016) 3. Citalopram 30 mg Oral once daily (Last dose: 11/11/2016) 4. losartan 50 mg oral tab 1 tab once daily (Last dose: 11/14/2016) 5. Miralax 17 gram Oral pwpk 1 packet once daily (Last dose: 11/14/2016) 6. Protonix 40 mg Oral TbEC 1 tab once daily (Last dose: 11/14/2016) 7. amlodipine 5 mg Oral tab 1 tab once daily (Last dose: 11/14/2016) 8. 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 No barriers to communication noted. - Family history: No immediate family members are acutely ill. - : The pt / caregiver states he / she is not on anticoagulants. Home medication list is obtained from the patient, [employer] import data, pill bottles. - Exposure Risk Screening:: None identified. Screenin:48 Screening information is obtained from the patient. Fall risk: At risk due to gait mb9 disturbance. Assistance ADL's: requires no assistance with activities of daily living. Abuse/DV Screen: The patient / caregiver reports he/she is: not in a situation that causes fear, pain or injury. Nutritional screening: No deficits noted. Advance Directives: There is no active DNR order. home support is adequate. Assessment: 12:49 General: Appears uncomfortable, Behavior is fussy. Pain: Location: dorsal aspect of mb9 left forearm, left wrist, left hand, palmar aspect of left forearm, lateral aspect of left calf, left lateral ankle and lateral aspect of left foot and abdomen and chest Pain currently is 10 out of 10 on a pain scale. Neurological: Level of Consciousness is awake, alert, Oriented to person, place, time. Cardiovascular: Heart tones S1 S2 present Pulses are all present. Rhythm is sinus tachycardia No ectopy. Respiratory: Airway is patent Respiratory effort is even, unlabored, Breath sounds are clear bilaterally. Breath sounds are diminished in left posterior lower lobe, right posterior middle lobe and right posterior lower lobe. GI: Reports nausea, vomiting. Derm: Rash noted that is on back, chest, abdomen, right arm and left arm Swollen area noted on head, right hand and left hand. 13:24 Reassessment: Patient states symptoms have not improved. General: Appears distressed, mb9 uncomfortable, Behavior is fussy, inappropriate for age. Pain: Location: right hand and head and right arm and back and right posterior lower lobe and right posterior middle lobe and left posterior lower lobe and left leg and left arm and lateral aspect of left foot and left lateral ankle and lateral aspect of left calf Pain currently is 10 out of 10 on a pain scale. Respiratory: Airway is patent Respiratory effort is even, unlabored, Breath sounds are clear bilaterally. Breath sounds are diminished in left posterior lower lobe and right posterior lower lobe Reports at this time pt states, "It's startin to feel scratchy in my throat when I swallow". 15:10 Reassessment: Patient states symptoms have not improved. Adult Sepsis Screening: The mb9 patient does not have new or worsening altered mentation. Patient's respiratory rate is less than 22. Systolic blood pressure is greater than 100. Patient has a qSOFA score of 0- Negative Sepsis Screen. General: Appears uncomfortable, Behavior is fussy. Pain: Location: back and abdomen Pain currently is 10 out of 10 on a pain scale. Respiratory: Airway is patent Respiratory effort is even, unlabored. GI: Reports nausea. 15:12 Derm: the swelling to the pt's bilateral hands and lips appears better than previous mb9 assessment. Swollen area noted. 17:05 Reassessment: Patient states symptoms have improved. Adult Sepsis Screening: The mb9 patient does not have new or worsening altered mentation. Patient's respiratory rate is less than 22. Systolic blood pressure is greater than 100. Patient has a qSOFA score of 0- Negative Sepsis Screen. General: Appears uncomfortable, Behavior is cooperative. Pain: Location: back and abdomen Pain currently is 8 out of 10 on a pain scale. Respiratory: Airway is patent Respiratory effort is even, unlabored. 19:09 Reassessment: Patient appears in no apparent distress at this time. Patient states mb9 symptoms have improved. Adult Sepsis Screening: The patient does not have new or worsening altered mentation. Patient's respiratory rate is less than 22. Systolic blood pressure is greater than 100. Patient has a qSOFA score of 0- Negative Sepsis Screen. General: Appears in no apparent distress, comfortable, Behavior is appropriate for age, cooperative. Pain: Location: abdomen and back Pain currently is 5 out of 10 on a pain scale. Respiratory: Airway is patent Respiratory effort is even, unlabored. 19:46 Reassessment: Patient appears in no apparent distress at this time. Patient states mb9 symptoms have improved. General: Appears uncomfortable, Behavior is appropriate for age, cooperative. Respiratory: Airway is patent Respiratory effort is even, unlabored. 19:48 Neurological: Reports blurred vision pt complains of blurred vision to right eye. Dr bran Giron aware. . 20:22 General: Dr Hendricks in to see pt. . bran 20:38 Reassessment: Patient appears in no apparent distress at this time. Patient states mb9 symptoms have improved. General: Appears in no apparent distress, comfortable, Behavior is appropriate for age, cooperative. Pain: Location: back and abdomen Pain currently is 8 out of 10 on a pain scale. Respiratory: Airway is patent Respiratory effort is even, unlabored. Vital Signs: 12:08 BP 159 / 93; Pulse 102; Resp 18 S; Temp 98.7(O); Pulse Ox 95% on R/A; Weight 86.18 kg gr2 (R); Height 5 ft. 11 in. (180.34 cm) (R); Pain 8/10; 13:35 Pulse 102 MON; mb9 13:36 BP 136 / 76 (auto/); mb9 14:17 BP 122 / 85 (auto/); mb9 14:18 Pulse 98 MON; Pulse Ox 98% ; mb9 14:36 Pulse 94 MON; Pulse Ox 98% ; mb9 14:36 BP 126 / 75 (auto/); mb9 14:54 Pain 10/10; mb9 15:06 Pulse 94 MON; Pulse Ox 95% ; mb9 15:06 BP 113 / 81 (auto/); mb9 16:06 BP 170 / 85 (auto/); mb9 16:06 Pulse 102 MON; mb9 16:56 BP 132 / 72 (auto/); mb9 16:56 Pulse 94 MON; Pulse Ox 95% ; mb9 17:37 BP 146 / 72 (auto/); mb9 17:37 Pulse 76 MON; Pulse Ox 94% ; mb9 18:11 BP 128 / 70 (auto/); mb9 18:11 Pulse 82 MON; Pulse Ox 97% ; mb9 18:37 BP 141 / 78 (auto/); mb9 18:37 Pulse 82 MON; Pulse Ox 97% ; mb9 19:07 BP 139 / 95 (auto/); mb9 19:08 Pulse 94 MON; Pulse Ox 95% ; mb9 19:45 BP 142 / 81; Pulse 89; Resp 17; Temp 98.3(TE); Pulse Ox 97% on R/A; mb9 20:38 BP 147 / 73; Pulse 86; Resp 17; Pulse Ox 98% on R/A; mb9 12:08 Body Mass Index 26.50 (86.18 kg, 180.34 cm) gr2 Vitals: 12:08 Log In Time: November 14, 2016 at 12:08. gr2 ED Course: 12:08 Patient visited by Rosalba Acevedo. gr2 12:08 Aashish Jane is Private Physician. gr2 12:08 Patient moved to Waiting gr2 12:11 Patient visited by Rosalba Acevedo. gr2 12:11 Patient moved to Pre RCE gr2 12:19 Triage Initiated [facility] 12:27 Magdalena Stockton,RN is Primary Nurse. hs1 12:27 Patient moved to 17 hs1 12:38 Patient has correct armband on for positive identification. Placed in gown. Bed in low lr2 position. Call light in reach. Side rails up X2. standards analyst on. Pulse ox on. NIBP on. 12:39 EKG done. (by ED staff). Reviewed by Brian Khoury MD. lr2 13:03 Patient visited by Reyna Holcomb PCA. ct3 13:18 Ronald Hernandez FNP is PHCP. ke 13:18 Patient visited by Ronald Hernandez FNP. ke 13:18 Patient visited by Ronald Hernandez FNP. ke 13:30 Inserted saline lock: 18 gauge in left antecubital area and blood collected. The mb9 patient tolerated the procedure well. 13:31 Amylase Sent. mb9 13:31 Basic Metabolic Profile Sent. mb9 13:31 CBC with Diff Sent. mb9 13:31 Lipase Sent. mb9 13:31 Liver Profile Sent. mb9 13:31 Prothrombin Time Profile\\E\\INR Sent. mb9 13:51 [facility] Payment Agreement was scanned into [employer] and attached to record. lg 13:58 Patient visited by Ronald Hernandez FNP. ke 14:19 Patient visited by Ronald Hernandez FNP. ke 14:52 Patient visited by Ronald Hernandez FNP. ke 15:17 Abdomen, Flat\\E\\Upright,PA Chest Returned. EDMS 15:26 Patient visited by Ronald Hernandez FNP. ke 15:30 Cristo Curtis MD is Hospitalizing Provider. ke 19:48 The patient / caregiver is instructed regarding the plan of care and ED course. mb9 20:24 CT ABD & PELVIS WITH CONTRAST Returned. EDMS 20:38 No procedures done that require assistance. mb9 11/15 12:17 T-Sheet-- Draft Copy was scanned into [employer] and attached to record. gb 12:18 ECG/EKG was scanned into [employer] and attached to record. gb 12:18 Radiology Report was scanned into [employer] and attached to record. gb Administered Medications: 11/14 13:47 Drug: ketorolac 30 mg [ketorolac 30 mg/mL (1 mL) injection solution (1 mL)] Route: IVP; mb9 Site: left antecubital; 14:54 Follow up: Pain 07/24 Adult; Response: Pain is unchanged, physician notified mb9 13:47 Drug: Solu-MEDROL 125 mg [Solu-Medrol 500 mg intravenous solution (125 mg)] Route: IVP; mb9 Site: left antecubital; 13:48 Drug: NS 0.9% 1000 ml [sodium chloride 0.9 % intravenous solution] Route: IV; Rate: mb9 bolus; Site: left antecubital; 17:06 Follow up: IV Intake: 1000ml mb9 13:48 Drug: Ondansetron 4 mg [ondansetron HCl 2 mg/mL intravenous solution (2 mL)] Route: mb9 IVP; Site: left antecubital; 15:27 Drug: fentaNYL (PF) 50 mcg [fentanyl (PF) 50 mcg/mL injection solution (1 mL)] Route: mb9 IVP; Site: left antecubital; 17:04 Follow up: Response: Pain is decreased mb9 17:04 Drug: morphine 1 mg [morphine 2 mg/mL intravenous cartridge (0.5 mL)] Route: IVP; Site: mb9 left antecubital; 18:24 Drug: Diatrizoate Meglumine & Sodium 10 ml [diatrizoate meglumine and diat.sodium 66 mb9 %-10 % oral solution (10 mL)] Route: PO; 18:56 Drug: Diatrizoate Meglumine & Sodium 10 ml [diatrizoate meglumine and diat.sodium 66 mb9 %-10 % oral solution (10 mL)] Route: PO; Intake: 17:06 IV: 1000.00ml; Total: 1000.00ml. mb9 Output: 20:40 Urine: 450.00ml (Voided); Total: 450.00ml. mb9 Order Results: Lab Order: Amylase; SPEC'M 11/14/16 12:46 Test: AMYLASE; Value: 112; Range: 25-115; Units: U/L; Status: F Lab Order: Basic Metabolic Profile; SPEC'M 11/14/16 12:46 Test: GLUCOSE, FASTING; Value: 101; Range: 70-105; Units: MG/DL; Status: F Test: BLOOD UREA NITROGEN; Value: 11; Range: 7-18; Units: MG/DL; Status: F Test: CREATININE FOR GFR; Value: 1.02; Range: 0.70-1.30; Units: MG/DL; Status: F Test: GLOMERULAR FILTRATION RATE; Value: > 60.0; Range: >56; Status: F Test: SODIUM LEVEL; Value: 138; Range: 136-145; Units: MEQ/L; Status: F Test: POTASSIUM SERUM; Value: 3.7; Range: 3.5-5.1; Units: MEQ/L; Status: F Test: CHLORIDE LEVEL; Value: 102; Range: 98-107; Units: MEQ/L; Status: F Test: CARBON DIOXIDE LEVEL; Value: 25; Range: 21-32; Units: MEQ/L; Status: F Test: ANION GAP; Value: 11; Range: 8-16; Units: MEQ/L; Status: F Test: CALCIUM LEVEL; Value: 9.6; Range: 8.5-10.1; Units: MG/DL; Status: F Test Note: ; Units are mL/min/1.73 m2 Chronic Kidney Disease Staging per NKF: Stage I & II GFR >=60 Normal to Mildly Decreased Stage III GFR 30-59 Moderately Decreased Stage IV GFR 15-29 Severely Decreased Stage V GFR <15 Very Little GFR Left ESRD GFR <15 on RECRUITING SCHEDULER Lab Order: CBC with Diff; SPEC'M 11/14/16 12:46 Test: WHITE BLOOD COUNT; Value: 8.8; Range: 4.0-10.0; Units: K/mm3; Status: F Test: RED BLOOD COUNT; Value: 4.18; Range: 4.30-6.10; Abnormal: Below low normal; Units: M/mm3; Status: F Test: HEMOGLOBIN; Value: 13.5; Range: 14.0-18.0; Abnormal: Below low normal; Units: g/dl; Status: F Test: HEMATOCRIT; Value: 40.7; Range: 42.0-52.0; Abnormal: Below low normal; Units: %; Status: F Test: MEAN CORPUSCULAR VOLUME; Value: 97.6; Range: 80.0-96.0; Abnormal: Above high normal; Units: fl; Status: F Test: MEAN CORPUSCULAR HEMOGLOBIN; Value: 32.3; Range: 27.0-33.0; Units: pg; Status: F Test: MEAN CORPUSCULAR HGB CONC; Value: 33.1; Range: 32.0-36.5; Units: g/dl; Status: F Test: RED CELL DISTRIBUTION WIDTH; Value: 11.5; Range: 11.5-14.5; Units: %; Status: F Test: PLATELET COUNT, AUTOMATED; Value: 451; Range: 150-450; Abnormal: Above high normal; Units: k/mm3; Status: F Test: NEUTROPHILS %; Value: 77.9; Range: 36.0-66.0; Abnormal: Above high normal; Units: %; Status: F Test: LYMPH %; Value: 17.4; Range: 24.0-44.0; Abnormal: Below low normal; Units: %; Status: F Test: MONO %; Value: 3.0; Range: 0.0-5.0; Units: %; Status: F Test: EOS %; Value: 0.4; Range: 0.0-3.0; Units: %; Status: F Test: BASO %; Value: 0.1; Range: 0.0-1.0; Units: %; Status: F Test: LARGE UNSTAINED CELL %; Value: 1.2; Range: 0.0-4.0; Units: %; Status: F Test: NEUTROPHILS #; Value: 6.9; Range: 1.8-7.7; Units: K/mm3; Status: F Test: LYMPH #; Value: 1.5; Range: 1.5-4.5; Units: K/mm3; Status: F Test: MONO #; Value: 0.3; Range: 0.0-0.8; Units: K/mm3; Status: F Test: EOS #; Value: 0.0; Range: 0.0-0.50; Units: K/mm3; Status: F Test: BASO #; Value: 0.0; Range: 0.0-0.2; Units: K/mm3; Status: F Test: LARGE UNSTAINED CELL #; Value: 0.1; Range: 0.0-0.4; Units: K/mm3; Status: F Lab Order: Lipase; SPEC'M 11/14/16 12:46 Test: LIPASE; Value: 606; Range: 73-393; Abnormal: Above high normal; Units: U/L; Status: F Lab Order: Liver Profile; SPEC'M 11/14/16 12:46 Test: AST/SGOT; Value: 27; Range: 15-37; Units: U/L; Status: F Test: ALT/SGPT; Value: 40; Range: 12-78; Units: U/L; Status: F Test: ALKALINE PHOSPHATASE; Value: 83; Range: 45-117; Units: U/L; Status: F Test: BILIRUBIN,TOTAL; Value: 0.5; Range: 0.2-1.0; Units: MG/DL; Status: F Test: BILIRUBIN,DIRECT; Value: 0.1; Range: 0.0-0.2; Units: MG/DL; Status: F Test: TOTAL PROTEIN; Value: 8.1; Range: 6.4-8.2; Units: GM/DL; Status: F Test: ALBUMIN; Value: 3.7; Range: 3.2-5.2; Units: GM/DL; Status: F Test: ALBUMIN/GLOBULIN RATIO; Value: 0.84; Range: 1.00-1.93; Abnormal: Below low normal; Status: F Lab Order: Prothrombin Time Profile\\E\\INR; [facility] 11/14/16 12:46 Test: PROTHROMBIN TIME; Value: 12.7; Range: 12.3-14.5; Units: SECONDS; Status: F Test: INR; Value: 0.94; Status: F Test Note: ; THERAPUTIC HUMAN INR VALUES INDICATIONS NORMAL RANGES PROPHYLAXIS/TREATMENT OF: VENOUS THROMBOSIS 2.0-3.0 PULMONARY EMBOLISM 2.0-3.0 PREVENTION OF SYSTEMIC EMBOLISM FROM: TISSUE HEART VALVES 2.0-3.0 ACUTE MYOCARDIAL INFARCTION 2.0-3.0 VALVULAR HEART DISEASE 2.0-3.0 ATRIAL FIBRILLATION 2.0-3.0 MECHANICAL VALVES(HIGH RISK) 2.5-3.5 RECURRENT MYOCARDIAL INFARCTION 2.5-3.5 Lab Order: Urinalysis; [facility] 11/14/16 16:12 Test: APPEARANCE, URINE; Value: CLOUDY; Range: CLEAR; Abnormal: Above high normal; Status: F Test: COLOR, URINE; Value: YELLOW; Range: YELLOW; Status: F Test: PH,URINE; Value: 5.0; Range: 5.0-9.0; Units: UNITS; Status: F Test: SPECIFIC GRAVITY URINE AUTO; Value: 1.020; Range: 1.002-1.035; Status: F Test: PROTEIN, URINE AUTO; Value: NEGATIVE; Range: NEGATIVE; Units: mg/dL; Status: F Test: GLUCOSE, URINE (UA) AUTO; Value: NEGATIVE; Range: NEGATIVE; Units: mg/dL; Status: F Test: KETONE, URINE AUTO; Value: NEGATIVE; Range: NEGATIVE; Units: mg/dL; Status: F Test: UROBILINOGEN, URINE AUTO; Value: 0.2; Range: 0.0-2.0; Units: mg/dL; Status: F Test: BILIRUBIN, URINE AUTO; Value: NEGATIVE; Range: NEGATIVE; Status: F Test: NITRITE, URINE AUTO; Value: NEGATIVE; Range: NEGATIVE; Status: F Test: LEUKOCYTE ESTERASE, URINE AUTO; Value: 1+; Range: NEGATIVE; Abnormal: Above high normal; Status: F Test: BLOOD, URINE BLOOD; Value: 3+; Range: NEGATIVE; Abnormal: Above high normal; Status: F Test: WBC, URINE AUTO; Value: 9; Range: 0-3; Abnormal: Above high normal; Units: /HPF; Status: F Test: RBC, URINE AUTO; Value: 62; Range: 0-3; Abnormal: Above high normal; Units: /HPF; Status: F Test: BACTERIA, URINE AUTO; Value: 1+; Range: NEGATIVE; Abnormal: Above high normal; Status: F Test: SQUAMOUS EPITHELIAL CELL UR AU; Value: 1; Range: 0-6; Units: /HPF; Status: F Test: MUCUS, URINE; Value: SMALL; Range: NEGATIVE; Status: F Test: HYALINE CAST, URINE AUTO; Value: 0; Range: 0-1; Units: /LPF; Status: F Test: AMORPHOUS SEDIMENT; Value: SMALL; Range: NEGATIVE; Abnormal: Above high normal; Status: F Lab Order: ETOH; SPEC'M 11/14/16 12:46 Test: ETHYL ALCOHOL (ETHANOL); Value: 0.004; Range: 0.000-0.010; Units: %; Status: F Lab Order: CARDIAC MARKER PANEL; SPEC'M 11/14/16 12:46 Test: CPK CREATINE PHOSPHOKINASE; Value: 52; Range: 39-308; Units: U/L; Status: F Test: CK-MB VALUE MASS; Value: 1.0; Range: 0.0-3.6; Units: NG/ML; Status: F Test: MB/CK RELATIVE INDEX; Value: 1.92; Range: < OR =4; Status: F Test: TROPONIN I; Value: < 0.02; Range: < 0.10; Units: NG/ML; Status: F Test Note: ; DIAGNOSIS CRITERIA MMB ng/ml Relative Index (RI) NON-AMI < or = 5 N/A [place] > 5 < or = 4 AMI > 5 > 4 Radiology Order: Abdomen, Flat\\E\\Upright,PA Chest Test: Abdomen, Flat\\E\\Upright,PA Chest REASON FOR EXAMINATION: Abdomen Pain; Abdominal series: Three views.; ; History: Abdominal pain.; ; Comparison chest x-ray November 01, 2016.; ; Findings: Upright chest radiograph is normal. EKG electrodes are seen. There; is no evidence of infiltrate or free subdiaphragmatic air. Heart size is; normal.; ; Supine and erect views of the abdomen show a few scattered loops of air-filled; borderline caliber small bowel with a few small bowel air-fluid levels in the; central abdomen. There is an air and stool in a the non-distended colon in the; ascending and transverse segments. Psoas margins and flank stripes are intact.; There are clips in right upper quadrant post cholecystectomy.; ; Impression:; ; Nonspecific central abdominal small bowel loops with air-fluid levels. No; evidence of free air. No infiltrate seen. Clips in the right upper quadrant.; ; ; Signed by; Nate Hoffmann MD 11/14/2016 04:23 P; Radiology Order: CT ABD & PELVIS WITH CONTRAST Test: CT ABD & PELVIS WITH CONTRAST REASON FOR EXAMINATION: worsening abdominal and groin pain, po/iv contrast; ; CT of the abdomen and pelvis with contrast; Clinical statement: Pain in the right groin.; Technique: Multiple axial CT images were obtained from the base of the lungs through the floor of the; pelvis utilizing 5 mm axial slices after administration of oral and nonionic intravenous contrast. C; oronal and sagittal reconstructions were also obtained.; Comparison: 11/04/2016.; Findings:; Chest: The visualized lung bases are clear.; Abdomen: The liver, spleen, kidneys, and adrenal glands are unremarkable. The inflammatory changes ar; ound the pancreatic head has slightly improved. No abscess or pseudocyst formation is noted. The aort; a is within normal limits. There is no evidence of abdominal lymphadenopathy or ascites.; Pelvis: The bowel is unremarkable, with no obstructive or inflammatory changes. There is minimal sigm; oid diverticulosis. The urinary bladder is within normal limits. The other pelvic structures appear g; rossly intact. There is no evidence of pelvic lymphadenopathy or ascites.; Bones: There are no suspicious osseous abnormalities seen. There is a mild disc osteophyte complexes; degenerative disc disease at L5/S1.; Impression:; 1. Changes from acute pancreatitis in the pancreatic head has slightly improved since the prior study; .; 2. No evidence of any hernias.; 3. Mild degenerative disc disease at L5/S1.; 4. No obstructive or inflammatory bowel changes.; ; Outcome: 15:30 Decision to Hospitalize by Provider. ke 20:38 Discharge Assessment: patient administered narcotics - yes. Patient was admitted to the [address] or transferred to another facility. The following High Risk Discharge criteria are identified: None. Discharged to home ambulatory. Condition: good Condition: stable Condition: improved. CT Study completed. Property :Personal belongings accompany Pt. 20:40 Patient left the ED. [facility] Signatures: Dispatcher [employer] EDMS Heather Eugene, Reg Reg gb Phoebe Moy, Reg Reg lg Ronald Hernandez, MARINE CONSULTANT MARINE CONSULTANT Love Ramey RN RN hs1 Reyna Holcomb, ENVIRONMENTAL RESOURCE SPECIALIST ENVIRONMENTAL RESOURCE SPECIALIST ct3 Araseli Hunt,RN RN [facility] Rosalba Acevedo gr2 Pj TraylorRN RN 9 Barbara Everett lr2 Chart Complete MTDD
--- NOTE | 2016-11-16 21:41 | EDDOCDS ---
Physician Documentation [facility] Name: Joao Brenner Age: 56 yrs Sex: Male : 1960 Arrival Date: 11/14/2016 Time: 12:06 Bed 17 Private MD: Aashish Jane H. Disposition: 11/14/16 15:30 Hospitalization ordered by Cristo Curtis for Inpatient Admission. Preliminary diagnosis is Acute pancreatitis, unspecified. - Bed requested for PCU. - Status is Inpatient Admission. mb9 - Condition is Stable. - Problem is an acute exacerbation. - Symptoms are unchanged. Historical: - Allergies: no known allergies; - Home Meds: 1. amitriptyline 50 mg Oral tab 1 tab nightly (Last dose: 11/13/2016) 2. baclofen 20 mg Oral tab daily (Last dose: 11/14/2016) 3. Citalopram 30 mg Oral once daily (Last dose: 11/11/2016) 4. losartan 50 mg oral tab 1 tab once daily (Last dose: 11/14/2016) 5. Miralax 17 gram Oral pwpk 1 packet once daily (Last dose: 11/14/2016) 6. Protonix 40 mg Oral TbEC 1 tab once daily (Last dose: 11/14/2016) 7. amlodipine 5 mg Oral tab 1 tab once daily (Last dose: 11/14/2016) 8. 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 No barriers to communication noted. - Family history: No immediate family members are acutely ill. - : The pt / caregiver states he / she is not on anticoagulants. Home medication list is obtained from the patient, [email or web address] import data, pill bottles. - Exposure Risk Screening:: None identified. Vital Signs: 11/14 12:08 BP 159 / 93; Pulse 102; Resp 18 S; Temp 98.7(O); Pulse Ox 95% on R/A; Weight 86.18 kg / gr2 189.99 lbs (R); Height 5 ft. 11 in. (180.34 cm) (R); Pain 8/10; 13:35 Pulse 102 MON; mb9 13:36 BP 136 / 76 (auto/); mb9 14:17 BP 122 / 85 (auto/); mb9 14:18 Pulse 98 MON; Pulse Ox 98% ; mb9 14:36 Pulse 94 MON; Pulse Ox 98% ; mb9 14:36 BP 126 / 75 (auto/); mb9 14:54 Pain 10/10; mb9 15:06 Pulse 94 MON; Pulse Ox 95% ; mb9 15:06 BP 113 / 81 (auto/); mb9 16:06 BP 170 / 85 (auto/); mb9 16:06 Pulse 102 MON; mb9 16:56 BP 132 / 72 (auto/); mb9 16:56 Pulse 94 MON; Pulse Ox 95% ; mb9 17:37 BP 146 / 72 (auto/); mb9 17:37 Pulse 76 MON; Pulse Ox 94% ; mb9 18:11 BP 128 / 70 (auto/); mb9 18:11 Pulse 82 MON; Pulse Ox 97% ; mb9 18:37 BP 141 / 78 (auto/); mb9 18:37 Pulse 82 MON; Pulse Ox 97% ; mb9 19:07 BP 139 / 95 (auto/); mb9 19:08 Pulse 94 MON; Pulse Ox 95% ; mb9 19:45 BP 142 / 81; Pulse 89; Resp 17; Temp 98.3(TE); Pulse Ox 97% on R/A; mb9 20:38 BP 147 / 73; Pulse 86; Resp 17; Pulse Ox 98% on R/A; mb9 12:08 Body Mass Index 26.50 (86.18 kg, 180.34 cm) gr2 MDM: 12:28 ECG WITH READING ER PHYS+CARDIAG ordered. EDMS 13:28 NS 0.9% 1000 ml IV at bolus once ordered. ke 13:28 Ondansetron 4 mg IVP once ordered. ke 13:28 IV Saline Lock ordered. ke 13:28 Undress patient appropriately for examination ordered. ke 13:28 ketorolac 30 mg IVP once ordered. ke 13:28 Solu-MEDROL 125 mg IVP once ordered. ke 13:29 Amylase Ordered. EDMS 13:29 Basic Metabolic Profile Ordered. EDMS 13:30 CBC with Diff Ordered. EDMS 13:30 Lipase Ordered. EDMS 13:30 Liver Profile Ordered. EDMS 13:30 Prothrombin Time Profile\E\INR Ordered. EDMS 13:30 Urinalysis Ordered. EDMS 13:30 Urine Culture Ordered. EDMS 13:30 Abdomen, Flat\E\Upright,PA Chest Ordered. EDMS 13:30 NOTHING BY MOUTH+DIET ordered. EDMS 13:37 Financial registration complete. lg 13:51 [facility] Payment Agreement was scanned into [employer] and attached to record. lg 14:03 CBC with Diff Reviewed. ke 14:03 Lipase Reviewed. ke 14:03 Liver Profile Reviewed. ke 14:03 Amylase Reviewed. ke 14:03 Basic Metabolic Profile Reviewed. ke 14:03 Prothrombin Time Profile\E\INR Reviewed. ke 14:07 ETOH Ordered. EDMS 14:58 ETOH Reviewed. ke 15:14 fentaNYL (PF) 50 mcg IVP once ordered. ke 15:15 BED REQUEST+ADM ordered. EDMS 16:40 NPO DIET ordered. EDMS 16:52 morphine 1 mg IVP once ordered. mb9 18:08 CT ABD & PELVIS WITH CONTRAST Ordered. EDMS 18:14 Diatrizoate Meglumine & Sodium Liquid 10 ml PO once; mix in 290cc of water ordered. mb9 18:14 Diatrizoate Meglumine & Sodium Liquid 10 ml PO once; mix in 290cc of water ordered. mb9 18:38 Admission / Observation Status ordered. EDMS 19:33 COMPLETE BLOOD COUNT Ordered. EDMS 19:33 BASIC METABOLIC PROFILE Ordered. EDMS 19:33 LIPASE Ordered. EDMS 19:35 CARDIAC MARKER PANEL Ordered. EDMS 19:35 CARDIAC MARKER PANEL Ordered. EDMS 19:58 CARDIAC MARKER PANEL Ordered. EDMS 11/15 12:17 T-Sheet-- Draft Copy was scanned into [employer] and attached to record. gb 12:18 ECG/EKG was scanned into [employer] and attached to record. gb 12:18 Radiology Report was scanned into [employer] and attached to record. gb Administered Medications: 11/14 13:47 Drug: ketorolac 30 mg [ketorolac 30 mg/mL (1 mL) injection solution (1 mL)] Route: IVP; mb9 Site: left antecubital; 14:54 Follow up: Pain 07/24 Adult; Response: Pain is unchanged, physician notified mb9 13:47 Drug: Solu-MEDROL 125 mg [Solu-Medrol 500 mg intravenous solution (125 mg)] Route: IVP; mb9 Site: left antecubital; 13:48 Drug: NS 0.9% 1000 ml [sodium chloride 0.9 % intravenous solution] Route: IV; Rate: mb9 bolus; Site: left antecubital; 17:06 Follow up: IV Intake: 1000ml mb9 13:48 Drug: Ondansetron 4 mg [ondansetron HCl 2 mg/mL intravenous solution (2 mL)] Route: mb9 IVP; Site: left antecubital; 15:27 Drug: fentaNYL (PF) 50 mcg [fentanyl (PF) 50 mcg/mL injection solution (1 mL)] Route: mb9 IVP; Site: left antecubital; 17:04 Follow up: Response: Pain is decreased mb9 17:04 Drug: morphine 1 mg [morphine 2 mg/mL intravenous cartridge (0.5 mL)] Route: IVP; Site: mb9 left antecubital; 18:24 Drug: Diatrizoate Meglumine & Sodium 10 ml [diatrizoate meglumine and diat.sodium 66 mb9 %-10 % oral solution (10 mL)] Route: PO; 18:56 Drug: Diatrizoate Meglumine & Sodium 10 ml [diatrizoate meglumine and diat.sodium 66 mb9 %-10 % oral solution (10 mL)] Route: PO; Signatures: Dispatcher [employer] EDMS Heather Eugene, Reg Reg gb Phoebe Moy, Reg Reg lg Ronald Hernandez, CASH SURRENDER CALCULATOR CASH SURRENDER CALCULATOR Araseli SotoRN RN [facility] Magdalena Stockton RN RN Pj Reese,RN RN mb9 The chart was reviewed and I authenticate all verbal orders and agree with the evaluation and treatment provided.Corrections: (The following items were deleted from the chart) 19:58 19:37 CARDIAC MARKER PANEL ordered. EDTN EDMS Attachments: 13:51 [facility] Payment Agreement lg 11/15 12:17 T-Sheet-- Draft Copy gb 12:18 ECG/EKG gb Chart Complete MTDD
[2016-11-16 22:00] VITALS: BP 156/84
[2016-11-17] MEDS: NS 1,000 ML IV SCH ×2 (01:55→09:10)
[2016-11-17] MEDS: PERCOCET 5MG/325MG TAB PO PRN ×2 (01:55→21:50)
[2016-11-17 06:00] VITALS: BP 152/74
[2016-11-17 06:29] LABS: BASO % 0.1 % (0.0-1.0); EOS % 0.1 % (0.0-3.0); LARGE UNSTAINED CELL # 0.1 K/mm3 (0.0-0.4); LARGE UNSTAINED CELL % 1.5 % (0.0-4.0); LYMPH # 1.2 K/mm3 (1.5-4.5); LYMPH % 20.2 % (24.0-44.0); MEAN CORPUSCULAR HEMOGLOBIN 31.7 pg (27.0-33.0); MEAN CORPUSCULAR HGB CONC 32.5 g/dl (32.0-36.5); MEAN CORPUSCULAR VOLUME 97.8 fl (80.0-96.0); MONO # 0.3 K/mm3 (0.0-0.8); MONO % 4.6 % (0.0-5.0); NEUTROPHILS # 4.4 K/mm3 (1.8-7.7); NEUTROPHILS % 73.4 % (36.0-66.0); PLATELET COUNT, AUTOMATED 359 k/mm3 (150-450); RED CELL DISTRIBUTION WIDTH 11.2 % (11.5-14.5)
[2016-11-17 06:44] LABS: ANION GAP 8 MEQ/L (8-16); BLOOD UREA NITROGEN 7 MG/DL (7-18); CALCIUM LEVEL 8.4 MG/DL (8.5-10.1); CARBON DIOXIDE LEVEL 26 MEQ/L (21-32); CHLORIDE LEVEL 109 MEQ/L (98-107); CREATININE FOR GFR 0.84 MG/DL (0.70-1.30); GLOMERULAR FILTRATION RATE > 60.0 (>56); GLUCOSE, FASTING 119 MG/DL (70-105); POTASSIUM SERUM 3.9 MEQ/L (3.5-5.1); SODIUM LEVEL 143 MEQ/L (136-145)
[2016-11-17 09:00] VITALS: BP 190/93
[2016-11-17] MEDS ORDERED: hydroCHLOROthiazide 12.5 MG CAPSULE PO SCH (09:00)
[2016-11-17] MEDS: predniSONE 20 MG TAB PO SCH (09:09)
[2016-11-17] MEDS: LOSARTAN 50 MG TAB PO SCH (09:10)
[2016-11-17] MEDS: ENOXAPARIN 40 MG/0.4 ML SYRINGE (J1650) SC SCH (09:10)
[2016-11-17 11:00] VITALS: BP 182/90
--- NOTE | 2016-11-17 12:39 | IPN ---
DATE OF SERVICE: 11/17/2016 SUBJECTIVE: Patient seen and examined in the room today. Patient stated he has been trying the liquid diet. He tolerated it well and abdominal pain has been improving, even with advancement of the diet. Patient has not experienced any worsening of the abdominal pain. Patient is quite concerned regarding his blood pressure treatments. In the past few days of admission, patient's blood pressure has been around 120s to 150s. Patient's amlodipine has been discontinued due to possible allergic reactions. No other acute complaints or changes. OBJECTIVE: VITAL SIGNS: Temperature 96.1, pulse 60, respirations 18, blood pressure 152/74 , pulse oximetry 96% in room air. GENERAL: Anxious. No signs of acute distress. Alert and oriented times three. HEENT: Normocephalic, atraumatic. Extraocular muscles grossly intact. CARDIOVASCULAR: Positive S1, S2. Regular rate. LUNGS: Clear to auscultation bilaterally. ABDOMEN: No tenderness to palpation. Bowel sounds present. No rebound. No guarding. EXTREMITIES: Erythema and urticaria-type rash has been almost resolved. No lower extremity edema. No cyanosis. LABORATORY DATA: WBC 6, hemoglobin 11.3, hematocrit 34.4, platelet count 359. Sodium 143, potassium 3.9, chloride 109, carbon dioxide 26, BUN 7, creatinine 0.84, GFR greater than 60, fasting glucose 119, calcium 8.4, lipase 255. ASSESSMENT AND PLAN: 1. Acute pancreatitis. Patient is being transitioned between nothing by mouth to a liquid diet. Yesterday, patient tolerated that well. We will advance the diet to solid today and will continue monitoring the patient's lipase. IV will be discontinued. Patient will continue on the as needed pain medication. 2. Hypertension. Since admission, patient has been on losartan only. Norvasc has been discontinued due to concern for allergies. In the late morning, patient started having increased systolic blood pressure to 180s to 190s. We will start hydrochlorothiazide and will titrate it accordingly. 3. Urticaria. Possibly due to Protonix versus Norvasc, which was recently started during the last admission. Patient has been taking steroids and his pruritus and urticaria has been almost resolved, but will titrate him down to by mouth prednisone. 4. Chronic back pain with cervical myelopathy. Patient has chronic twitching type of movements. Patient is at baseline. Patient is on Baclofen. 5. Depression. Patient on Celexa 40 mg by mouth every two days. 6. Patient also on elivil 25 mg by mouth nightly. 7. Deep venous thrombosis (DVT) prophylaxis. Patient is on Lovenox. MTDD
[2016-11-17 14:00] VITALS: BP 174/84
[2016-11-17 15:24] VITALS: BP 144/88
[2016-11-17] MEDS: DOCUSATE SODIUM 100 MG CAP PO PRN (16:06)
[2016-11-17] MEDS: AMITRIPTYLINE 25 MG TAB PO SCH (21:43)
[2016-11-17] MEDS: BACLOFEN 10 MG TAB PO PRN (21:49)
[2016-11-17 22:00] VITALS: BP 160/91
[2016-11-18 06:00] VITALS: BP 158/82
[2016-11-18 06:20] LABS: BASO % 0.4 % (0.0-1.0); EOS # 0.1 K/mm3 (0.0-0.50); LARGE UNSTAINED CELL # 0.1 K/mm3 (0.0-0.4); LARGE UNSTAINED CELL % 1.7 % (0.0-4.0); LYMPH # 2.4 K/mm3 (1.5-4.5); LYMPH % 40.3 % (24.0-44.0); MEAN CORPUSCULAR HEMOGLOBIN 31.9 pg (27.0-33.0); MEAN CORPUSCULAR VOLUME 96.5 fl (80.0-96.0); MONO # 0.3 K/mm3 (0.0-0.8); MONO % 5.7 % (0.0-5.0); NEUTROPHILS % 50.8 % (36.0-66.0); PLATELET COUNT, AUTOMATED 378 k/mm3 (150-450); RED CELL DISTRIBUTION WIDTH 11.3 % (11.5-14.5); WHITE BLOOD COUNT 5.9 K/mm3 (4.0-10.0)
[2016-11-18 06:37] LABS: ANION GAP 9 MEQ/L (8-16); BLOOD UREA NITROGEN 11 MG/DL (7-18); CALCIUM LEVEL 8.1 MG/DL (8.5-10.1); CARBON DIOXIDE LEVEL 28 MEQ/L (21-32); CHLORIDE LEVEL 106 MEQ/L (98-107); CREATININE FOR GFR 0.83 MG/DL (0.70-1.30); GLOMERULAR FILTRATION RATE > 60.0 (>56); GLUCOSE, FASTING 89 MG/DL (70-105); POTASSIUM SERUM 3.2 MEQ/L (3.5-5.1); SODIUM LEVEL 143 MEQ/L (136-145)
[2016-11-18] MEDS ORDERED: predniSONE 20 MG TAB PO SCH (09:00)
[2016-11-18] MEDS: CitaloPRAM (CeleXA) 20 MG TAB PO SCH (09:00)
[2016-11-18] MEDS ORDERED: POTASSIUM CHLORIDE 10 MEQ SR TABLET PO SCH (09:00)
[2016-11-18] MEDS: LOSARTAN 50 MG TAB PO SCH (09:10)
[2016-11-18] MEDS: ENOXAPARIN 40 MG/0.4 ML SYRINGE (J1650) SC SCH (09:11)
[2016-11-18] MEDS: DOCUSATE SODIUM 100 MG CAP PO PRN ×2 (09:17→20:42)
[2016-11-18] MEDS: PERCOCET 5MG/325MG TAB PO PRN ×4 (09:18→22:20)
[2016-11-18] MEDS: hydroCHLOROthiazide 25 MG TAB PO SCH (11:32)
[2016-11-18 11:34] VITALS: BP 168/98
[2016-11-18 14:00] VITALS: BP 176/90
[2016-11-18] MEDS ORDERED: MOM 30ML SUSPENSION UDC PO PRN (15:15)
--- NOTE | 2016-11-18 18:27 | IPN ---
DATE: 11/18/2016 SUBJECTIVE: The patient is seen and examined in the room today. The patient stated yesterday lunch time, he tried some soft diet. He tolerated it well. Then yesterday evening, saying he ordered some solid such as hamburger and salad. However, after a few bites of hamburger, he started having some recurrence of abdominal discomfort. It resolved afterwards, but it got him concerned regarding his capacity for the solids. He stated he is usually a very active malena, but he is not sure whether he has anxiety or not. He does have moments of feeling rapid heart rate and anxiety, especially in the evening time. OBJECTIVE: VITAL SIGNS: Temperature 96.5, pulse is 61, respirations 19, blood pressure is 158/81, pulse oximetry 95% on room air. GENERAL: No sign of acute distress. Alert and oriented times three. HEENT: Normocephalic, atraumatic. Extraocular motor grossly intact. CARDIOVASCULAR: Positive S1, S2. Regular rate. LUNGS: Clear to auscultation bilaterally. ABDOMEN: Soft, nontender, nondistended. Bowel sounds present. No rebound, no guarding. EXTREMITIES: No erythema. Urticarious type of rash. No sign of cyanosis. No lower extremity edema. LABORATORY DATA: WBC 5.9, hemoglobin 11.5, hematocrit 34.7, platelet count 378. Sodium is 143, potassium 3.2, chloride 106, carbon dioxide 28, BUN 11, creatinine 0.83, GFR greater than 60, fasting glucose is 89, calcium 8.1, lipase is 342. ASSESSMENT AND PLAN: 1. Acute pancreatitis. Intravenous (IV) fluid has been discontinued. The patient tolerated a soft diet well; however, he cannot tolerate solids at this moment. The patient will continue with pain control. Follow with the lipase daily. 2. Hypertension. The patient is on maximum dose of losartan. Beta jackie is not ideal for the patient due to average heart rate around 60s. The patient has a possible allergic reaction to amlodipine. Therefore, the patient has been on a trial of hydralazine. We will increase the dose from 12.5 mg daily to 25 mg by mouth daily. 3. Hypokalemia secondary to diuretic use. The patient will be on potassium supplements. 4. Urticaria, possibly due to Protonix versus Norvasc. Urticaria has almost resolved. The patient is on tapering dose of prednisone. 5. Chronic back pain with cervical myelopathy, at baseline. The patient has been on Baclofen. 6. Depression. The patient is on Celexa 40 mg by mouth every two days, which is the patient's home dose. The patient is also on nortriptyline at bedtime. 7. Deep venous thrombosis (DVT) prophylaxis. The patient is on Lovenox.
[2016-11-18] MEDS: AMITRIPTYLINE 25 MG TAB PO SCH (20:41)
[2016-11-18 20:55] VITALS: BP 161/92
[2016-11-18] MEDS: BACLOFEN 10 MG TAB PO PRN (22:20)
[2016-11-19] MEDS: PERCOCET 5MG/325MG TAB PO PRN ×2 (04:15→09:34)
[2016-11-19 05:40] VITALS: BP 166/94
[2016-11-19 06:08] LABS: MEAN CORPUSCULAR HEMOGLOBIN 32.2 pg (27.0-33.0); MEAN CORPUSCULAR HGB CONC 33.7 g/dl (32.0-36.5); MEAN CORPUSCULAR VOLUME 95.7 fl (80.0-96.0); RED CELL DISTRIBUTION WIDTH 11.8 % (11.5-14.5); WHITE BLOOD COUNT 5.2 K/mm3 (4.0-10.0)
[2016-11-19 06:10] LABS: ANION GAP 8 MEQ/L (8-16); BLOOD UREA NITROGEN 10 MG/DL (7-18); CALCIUM LEVEL 8.7 MG/DL (8.5-10.1); CARBON DIOXIDE LEVEL 29 MEQ/L (21-32); CHLORIDE LEVEL 104 MEQ/L (98-107); CREATININE FOR GFR 0.83 MG/DL (0.70-1.30); GLOMERULAR FILTRATION RATE > 60.0 (>56); GLUCOSE, FASTING 90 MG/DL (70-105); POTASSIUM SERUM 3.4 MEQ/L (3.5-5.1); SODIUM LEVEL 141 MEQ/L (136-145)
[2016-11-19] MEDS ORDERED: POTASSIUM CHLORIDE 10 MEQ SR TABLET PO SCH (09:00)
[2016-11-19 09:26] VITALS: BP 150/85
[2016-11-19] MEDS: ENOXAPARIN 40 MG/0.4 ML SYRINGE (J1650) SC SCH (09:26)
[2016-11-19] MEDS: LOSARTAN 50 MG TAB PO SCH (09:26)
[2016-11-19] MEDS: hydroCHLOROthiazide 25 MG TAB PO SCH (09:26)
[2016-11-19] MEDS ORDERED: POTA10CA PO (10:14)
[2016-11-19] MEDS ORDERED: HYDR25TAB PO (10:14)
[2016-11-19] MEDS ORDERED: CELE40TA PO (10:14)
--- NOTE | 2016-11-19 16:14 | DSES ---
DATE OF ADMISSION: 11/14/2016 DATE OF DISCHARGE: 11/19/2016 PRIMARY CARE PROVIDER: Aashish Jane MD CONSULTANTS: None PROCEDURES: None COMPLICATIONS: None ADMISSION/DISCHARGE DIAGNOSES: 1. Acute pancreatitis. 2. Hypertension. 3. Hypokalemia secondary to diuretic use. 4. Urticaria possibly due to Protonix versus Norvasc. 5. Anxiety/depression. 6. Chronic back pain with cervical myelopathy. HOSPITALIZATION COURSE: Patient is a 56-year-old male recently admitted to [facility] from 11/05/2016 to 11/10/2016, for acute pancreatitis. After patient went home, patient resumed normal diet, however patient started having recurrence of severe abdominal pain in the whole abdomen with radiation and patient came back to [facility] on 11/14/2016, for evaluation. CT imaging showed patient continued to have acute pancreatitis in the pancreatic head and patient is admitted to medical/surgical floor. Patient is started on nothing by mouth, intravenous (IV) fluids, and pain medication. Initially, patient has a lipase level of 606. With conservative medical management, patient showed improvement of the lipase and 1-2 days into the hospitalization patient's diet is advanced to liquid and patient tolerated it well, then diet is advanced to solid diet. However, during the transition from soft diet to solid diet, patient started to notice recurrence of the abdominal discomfort and patient had to stay with a soft diet for several days. During the first few days of hospitalization, patient was noted to have worsening rash and pruritus. New medications, such as amlodipine and Protonix, had to be discontinued, and patient was started on prednisone with hydroxyzine to control the drug-induced urticaria. Due to discontinuation of the blood pressure medication, patient's blood pressure continued to increase and patient was started on diuretic such as hydrochlorothiazide. Hydrochlorothiazide induced hypokalemia and was treated with potassium supplement. During encounter patient started to refuse the Celexa and it was found out that patient has been trying to decrease the frequency and dosage of Celexa by himself and, after further discussion, Celexa routine dose was resumed. On 11/19/2016, patient is determined to be medically stable for discharge with recommendation to followup with primary care provider within 1 week and patient should continue with soft diet and advance to solid diet as tolerated and patient is advised to stop alcohol use completely. Patient is recommended to followup with primary care provider with regard to his selective serotonin reuptake inhibitor (SSRI) dosage adjustment. OBJECTIVE: VITAL SIGNS: Temperature 97.9, pulse 51, respiration rate 18, blood pressure 166/94, pulse oximetry 94% in room air. LABORATORY DATA: WBC 5.2, hemoglobin 12.3, hematocrit 36.6, platelet count 397. Sodium 141, potassium 3.4, chloride 104, carbon dioxide 29, BUN 10, creatinine 0.83, GFR greater than 60, fasting glucose 90, calcium 8.7, lipase 348, on the day of admission lipase is 606. Microbiology: Urine culture appeared contaminated. IMAGING STUDIES: Abdominal xray shows nonspecific central abdominal small bowel loops with air fluid levels. No evidence of free air. No infiltrate. CT of abdomen and pelvis with contrast showed changes from acute pancreatitis in the pancreatic head has slightly improved since prior study. No evidence of any hernias. Mild degenerative disc disease at L5-S1. No obstructive or inflammatory bowel changes. DISCHARGE MEDICATIONS: - Celexa 40 mg by mouth daily - hydrochlorothiazide 25 mg by mouth daily - potassium chloride 20 mEq by mouth daily - Percocet one tablet by mouth every 4 hours as needed - amitriptyline 50 mg by mouth nightly - baclofen 20 mg by mouth three times a day as needed for muscle spasm - Colace 100 mg by mouth twice a day as needed for constipation - fish oil 1000 mg by mouth daily - losartan 100 mg by mouth daily - Protonix 40 mg by mouth daily - MiraLax 17 grams by mouth daily DISCHARGE INSTRUCTIONS: Discontinue lines. Discharge home. Activity as tolerated. Stay with soft diet and advance to solid diet as tolerated. Patient should stop drinking alcohol. Patient should avoid greasy food. Patient should followup with primary care provider, Dr. Aashish Jane, within 1 week. Patient should discuss with primary care provider with regard to selective serotonin reuptake inhibitor (SSRI) dose adjustment. DISCHARGE CONDITION: Stable. DISCHARGE TIME: Greater than 30 minutes.
== END 2016-11-19 12:30 | disposition home or self-care (01) | DRG 440 ==
LOC: M ED 12:06 → M ED INP 18:36 → M PCU 20:47 → M MSPAV 11-15 10:36
PROVIDERS: ADMIT Internal Medicine; ATTEND Internal Medicine
DX: K85.90 Acute pancreatitis without necrosis or infection, unspecified (principal); R22.0 Localized swelling, mass and lump, head; I10 Essential (primary) hypertension; L50.9 Urticaria, unspecified; G25.3 Myoclonus; M54.2 Cervicalgia; F41.9 Anxiety disorder, unspecified; E87.6 Hypokalemia; F32.9 Major depressive disorder, single episode, unspecified; T47.9 Poisoning by, adverse effect of and underdosing of unspecified agents primarily affecting the gastrointestinal system; T46.1X5A Adverse effect of calcium-channel blockers, initial encounter; Z79.899 Other long term (current) drug therapy

== ENCOUNTER 2016-11-24 08:07 | Emergency (ER) | payer MEDICARE, MEDICAID ==
[~2016-11-24 08:07] MED LIST changes: +FISH1000 PO; +HYDR25TAB PO; +PANT40TA2 PO; +POTA10CA PO
[2016-11-24] MEDS ORDERED: KETOROLAC 30 MG/ML VIAL (J1885) As Ordered ONE (09:13)
[2016-11-24] MEDS ORDERED: TRIMETHOBENZAMIDE HCL INJ 200 MG/2 ML VIAL (J3250) As Ordered ONE (09:13)
[2016-11-24 09:22] LABS: BASO % 0.2 % (0.0-1.0); EOS # 0.1 K/mm3 (0.0-0.50); EOS % 1.6 % (0.0-3.0); LARGE UNSTAINED CELL # 0.2 K/mm3 (0.0-0.4); LARGE UNSTAINED CELL % 1.8 % (0.0-4.0); LYMPH % 22.5 % (24.0-44.0); MEAN CORPUSCULAR HEMOGLOBIN 31.6 pg (27.0-33.0); MEAN CORPUSCULAR HGB CONC 33.2 g/dl (32.0-36.5); MEAN CORPUSCULAR VOLUME 95.4 fl (80.0-96.0); MONO # 0.6 K/mm3 (0.0-0.8); NEUTROPHILS # 5.8 K/mm3 (1.8-7.7); NEUTROPHILS % 66.8 % (36.0-66.0); PLATELET COUNT, AUTOMATED 410 k/mm3 (150-450); RED CELL DISTRIBUTION WIDTH 11.5 % (11.5-14.5); WHITE BLOOD COUNT 8.8 K/mm3 (4.0-10.0)
[2016-11-24 09:26] LABS: ALBUMIN 4.2 GM/DL (3.2-5.2); ALBUMIN/GLOBULIN RATIO 1.27 (1.00-1.93); ALKALINE PHOSPHATASE 84 U/L (45-117); ALT/SGPT 39 U/L (12-78); AMYLASE 84 U/L (25-115); ANION GAP 11 MEQ/L (8-16); AST/SGOT 20 U/L (15-37); BILIRUBIN,DIRECT 0.2 MG/DL (0.0-0.2); BILIRUBIN,TOTAL 0.6 MG/DL (0.2-1.0); BLOOD UREA NITROGEN 17 MG/DL (7-18); CALCIUM LEVEL 9.5 MG/DL (8.5-10.1); CARBON DIOXIDE LEVEL 28 MEQ/L (21-32); CHLORIDE LEVEL 96 MEQ/L (98-107); CREATININE FOR GFR 1.32 MG/DL (0.70-1.30); GLOMERULAR FILTRATION RATE 59.7 (>56); GLUCOSE, FASTING 120 MG/DL (70-105); POTASSIUM SERUM 3.8 MEQ/L (3.5-5.1); SODIUM LEVEL 135 MEQ/L (136-145); TOTAL PROTEIN 7.5 GM/DL (6.4-8.2)
--- NOTE | 2016-11-24 10:12 | REP ---
Abdominal right upper quadrant ultrasound, emergency room patient: Comparisons are the CT studies of the abdomen and pelvis dated 11/14/2016 and 11/01/2016. On the comparison CT studies were findings compatible with inflammation in the region of the pancreatic head and duodenal loop. On the ultrasound study today the pancreas is obscured l and cannot be visualized. Ultrasonography is extremely limited as the only scanning windows are intercostal windows. The the patient has a cholecystectomy. There is no intrahepatic or extrahepatic biliary duct dilatation, the common duct is 3 mm in diameter. There is limited evaluation of the hepatic parenchyma. Visualized hepatic parenchyma is homogeneous. The right kidney is normal size measuring 9.9 cm craniocaudad length. No right renal hydronephrosis, calculus or mass are identified. Impression Very limited study. The pancreas is obscured , however, on recent comparison abdomen CTs, here was evidence for pancreatitis. Follow-up evaluation of the pancreas by MRI or by endoscopic ultrasonography might be considered to evaluate for pancreatic head mass , given the persistent symptomatology. Signed by Constantine Sosa MD 11/24/2016 10:04 A
[2016-11-24] MEDS ORDERED: SUCRALFATE 1 GM TAB As Ordered ONE (10:40)
[2016-11-24] MEDS ORDERED: GI COCKTAIL 50ML BTL(HYOSCYAMINE/MAALOX/LIDOCAINE VISCOUS)(1:3:1) As Ordered ONE (10:40)
--- NOTE | 2016-11-24 11:56 | EDDOCDS ---
Physician Documentation [facility] Name: Joao Brenner Age: 56 yrs Sex: Male : 1960 Arrival Date: 11/24/2016 Time: 08:07 Bed 12 Private MD: Aashish Jane H. Disposition: 11/24/16 11:27 Discharged to Home/Self Care. Impression: Upper abdominal pain, unspecified - BILATERAL, Nausea with vomiting, unspecified. - Condition is Stable. - Discharge Instructions: Abdominal Pain, Adult, Nausea and Vomiting. - Prescriptions for Tigan 300 mg Oral Capsule - take 1 capsule by ORAL route every 12 hours As needed; 30 capsule. - Medication Reconciliation, Local Pharmacy Hours form. - Follow up: Emergency Department; When: As needed; Reason: Worsening of conditions. Follow up: Aashish Jane; When: 2 - 3 days; Reason: Wound/Symptom Recheck, Recheck today's complaints, Continuance of care. Follow up: Krunal Greene; When: Call to arrange an appointment; Reason: Wound/Symptom Recheck, Further diagnostic work-up, Recheck today's complaints, Continuance of care, To establish care. - Problem is new. - Symptoms have improved. Historical: - Allergies: No known drug Allergies; - Home Meds: 1. amitriptyline 50 mg Oral tab 1 tab nightly 2. baclofen 20 mg Oral tab daily 3. Citalopram 30 mg Oral once daily 4. Fish Oil 1,000 mg Oral cap 5. losartan 50 mg oral tab 1 tab once daily 6. potassium chloride 10 mEq Oral cpER 2 caps once daily 7. hydrochlorothiazide 25 mg Oral tab 1 tab once daily 8. Miralax 17 gram Oral pwpk 1 packet once daily 9. 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 No barriers to communication noted, The patient speaks fluent [place], Speaks appropriately for age. - Family history: Not pertinent. - : The pt / caregiver states he / she is not on anticoagulants. Home medication list is obtained from the patient, pill bottles. - Exposure Risk Screening:: None identified. Vital Signs: 11/24 08:19 BP 116 / 72; Pulse 110; Resp 18; Temp 97.5; Weight 81.65 kg / 180.01 lbs; Height 5 ft. hs1 10 in. (177.80 cm); Pain 10/10; 09:04 Pulse Ox 98% on R/A; ml6 09:26 BP 112 / 78 (auto/); kc3 09:26 Pulse 88 MON; Pulse Ox 96% ; kc3 09:45 Pulse 80 MON; Pulse Ox 95% ; kc3 09:46 BP 116 / 68 (auto/); kc3 10:06 BP 112 / 78 (auto/); kc3 10:07 Pulse 84 MON; Pulse Ox 98% ; kc3 10:26 BP 111 / 74 (auto/); kc3 10:26 Pulse 84 MON; Pulse Ox 95% ; kc3 10:46 BP 114 / 67 (auto/); kc3 10:46 Pulse 78 MON; Pulse Ox 96% ; kc3 11:06 BP 112 / 66 (auto/); kc3 11:07 Pulse 78 MON; Pulse Ox 98% ; kc3 11:54 BP 118 / 68; Pulse 99; Resp 18; Temp 97.6(O); Pulse Ox 99% on R/A; kc3 08:19 Body Mass Index 25.83 (81.65 kg, 177.80 cm) hs1 MDM: 09:03 Financial registration complete. lg 09:04 IV Saline Lock ordered. ml6 09:04 Undress patient appropriately for examination ordered. ml6 09:05 [facility] Payment Agreement was scanned into [employer] and attached to record. lg 09:05 BMP Ordered. EDMS 09:05 CBC with Diff Ordered. EDMS 09:05 Lipase Ordered. EDMS 09:05 Liver Profile Ordered. EDMS 09:05 Amylase Ordered. EDMS 09:05 Ammonia ([place] Tube on Ice, Not [place]) Ordered. EDMS 09:05 ECG WITH READING ER PHYS+CARDIAG ordered. EDMS 09:08 NS 0.9% 1000 ml IV at bolus once ordered. dt4 09:08 ketorolac 30 mg IVP once ordered. dt4 09:08 Tigan 200 mg IM once ordered. dt4 09:11 Urinalysis Ordered. EDMS 09:11 Urine Culture Ordered. EDMS 09:11 US Abd Limited Ordered. EDMS 09:13 NOTHING BY MOUTH+DIET ordered. EDMS 09:14 C REACTIVE PROTEIN QUANTITATIV Ordered. EDMS 09:14 ETHYL ALCOHOL (ETHANOL) Ordered. EDMS 10:18 GI Cocktail - (Alum-Mag Hydroxide-Simeth 30 ml, Lidocaine 10 ml, Hyoscyamine 10 ml) PO dt4 once; Pre-mixed 50mL unit dose ordered. 10:18 Sucralfate 1 grams PO once ordered. dt4 Administered Medications: 09:25 Drug: NS 0.9% 1000 ml [sodium chloride 0.9 % intravenous solution] Route: IV; Rate: kc3 bolus; Site: left antecubital; 11:20 Follow up: IV Status: Completed infusion kc3 09:25 Drug: ketorolac 30 mg [ketorolac 30 mg/mL (1 mL) injection solution (1 mL)] Route: IVP; kc3 Site: left antecubital; 11:20 Follow up: Response: No Adverse Reaction kc3 09:25 Drug: Tigan 200 mg [Tigan 100 mg/mL intramuscular solution (2 mL)] Route: IM; Site: kc3 left gluteus; 11:20 Follow up: Response: No Adverse Reaction kc3 10:43 Drug: Sucralfate 1 grams [sucralfate 1 gram tablet (1 tabs)] Route: PO; kc3 10:44 Drug: GI Cocktail - (Alum-Mag Hydroxide-Simeth Suspension 225 mg-200 mg-25 mg/5 mL 30 kc3 ml, Lidocaine Liquid 2 % 10 ml, Hyoscyamine Liquid 10 ml) Route: PO; Signatures: Dispatcher MedHost EDMS Phoebe Moy, Reg Reg lg Stanislaw Larson RN RN ml6 Love Muhammad RN RN hs1 Mercedes Molina PA-C PARodger dt4 Liliam Iqbal RN RN kc3 The chart was reviewed and I authenticate all verbal orders and agree with the evaluation and treatment provided.Corrections: (The following items were deleted from the chart) 09:14 09:11 C REACTIVE PROTEIN QUANTITATIV+LAB ordered. EDMS EDMS 09:14 09:11 ETHYL ALCOHOL (ETHANOL)+LAB ordered. EDMS EDMS Attachments: 09:05 [facility] Payment Agreement lg MTDD
--- NOTE | 2016-11-24 11:56 | EDDOCDS ---
Nurse's Notes [facility] Name: Joao Brenner Age: 56 yrs Sex: Male : 1960 Arrival Date: 11/24/2016 Time: 08:07 Bed 12 Private MD: Aashish Jane H. Diagnosis: Upper abdominal pain, unspecified-BILATERAL;Nausea with vomiting, unspecified Presentation: 11/24 08:14 Presenting complaint: Patient states: patient believes his pancreatitis is flaring up hs1 again. Patient reports not being able to eat or drink, not being able to go to the bathroom. Patient reports cramping and upset stomach and feeling faint. Adult Sepsis Screening: The patient does not have new or worsening altered mentation. Patient's respiratory rate is less than 22. Systolic blood pressure is greater than 100. Patient has a qSOFA score of 0- Negative Sepsis Screen. Suicide/Homicide risk assessment- the patient denies having any suicidal and/or homicidal ideations and does not present with any other emotional, behavioral or mental health complaints. Status: Patient is not a agency service representative or dependent. Transition of care: patient was not received from another setting of care. 08:14 Acuity: TAPAN Level 3 hs1 08:14 Method Of Arrival: Walkin/Carried/Asstd hs1 Triage Assessment: 08:19 General: Appears uncomfortable, Behavior is appropriate for age, cooperative. Pain: hs1 Location: abdomen Pain currently is 10 out of 10 on a pain scale. HIV screening NA for this visit Offered previously. Neurological: Reports weakness. Respiratory: No deficits noted. GI: Reports nausea, vomiting. Historical: - Allergies: No known drug Allergies; - Home Meds: 1. amitriptyline 50 mg Oral tab 1 tab nightly 2. baclofen 20 mg Oral tab daily 3. Citalopram 30 mg Oral once daily 4. Fish Oil 1,000 mg Oral cap 5. losartan 50 mg oral tab 1 tab once daily 6. potassium chloride 10 mEq Oral cpER 2 caps once daily 7. hydrochlorothiazide 25 mg Oral tab 1 tab once daily 8. Miralax 17 gram Oral pwpk 1 packet once daily 9. 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 No barriers to communication noted, The patient speaks fluent Kyrgyz, Speaks appropriately for age. - Family history: Not pertinent. - : The pt / caregiver states he / she is not on anticoagulants. Home medication list is obtained from the patient, pill bottles. - Exposure Risk Screening:: None identified. Screenin:33 Screening information is obtained from the patient. Fall risk: No risks identified. ml6 Assistance ADL's: requires no assistance with activities of daily living. Abuse/DV Screen: The patient / caregiver reports he/she is: not in a situation that causes fear, pain or injury. Nutritional screening: No deficits noted. Advance Directives: Currently, there is. home support is adequate. Assessment: 08:33 General: Appears in no apparent distress, Behavior is appropriate for age, cooperative. ml6 Pain: Location: abdomen Pain currently is 6 out of 10 on a pain scale. Pain does not radiate. Quality of pain is described as sharp, Pain began 1 day ago Is continuous Alleviated by nothing. Aggravated by increased activity. Cardiovascular: No deficits noted. Capillary refill < 3 seconds is brisk in bilateral fingers toes Heart tones S1 S2 present. Respiratory: No deficits noted. Airway is patent Respiratory effort is even, unlabored, Respiratory pattern is regular, symmetrical. GI: Abdomen is obese, Bowel sounds present X 4 quads. Abd is soft X 4 quads Abd is tender to palpation X 4 quads. Reports cramping, nausea, vomiting. 09:30 General: Appears in no apparent distress, comfortable, Behavior is appropriate for age, kc3 cooperative. Pain: Location: abdomen. Neurological: Level of Consciousness is awake, alert, obeys commands. Respiratory: No deficits noted. GI: Reports nausea. Derm: Skin is pink, warm & dry. 10:20 General: Appears in no apparent distress, comfortable, Behavior is appropriate for age, kc3 cooperative. Pain: Location: abdomen. Neurological: Level of Consciousness is awake, alert, obeys commands, Oriented to person, place, time. Respiratory: Respiratory effort is even, unlabored, Respiratory pattern is regular, symmetrical. Derm: Skin is pink, warm & dry. 11:18 General: Appears in no apparent distress, comfortable, Behavior is appropriate for age, kc3 cooperative. Pain: Location: abdomen. Neurological: No deficits noted. Respiratory: No deficits noted. Derm: Skin is pink, warm & dry. 11:53 General: Appears in no apparent distress, comfortable, Behavior is appropriate for age, kc3 cooperative. Pain: Location: abdomen. Neurological: Level of Consciousness is awake, alert, obeys commands, Oriented to person, place, time. Respiratory: Respiratory effort is even, unlabored. Derm: Skin is pink, warm & dry. Vital Signs: 08:19 BP 116 / 72; Pulse 110; Resp 18; Temp 97.5; Weight 81.65 kg; Height 5 ft. 10 in. hs1 (177.80 cm); Pain 10/10; 09:04 Pulse Ox 98% on R/A; ml6 09:26 BP 112 / 78 (auto/); kc3 09:26 Pulse 88 MON; Pulse Ox 96% ; kc3 09:45 Pulse 80 MON; Pulse Ox 95% ; kc3 09:46 BP 116 / 68 (auto/); kc3 10:06 BP 112 / 78 (auto/); kc3 10:07 Pulse 84 MON; Pulse Ox 98% ; kc3 10:26 BP 111 / 74 (auto/); kc3 10:26 Pulse 84 MON; Pulse Ox 95% ; kc3 10:46 BP 114 / 67 (auto/); kc3 10:46 Pulse 78 MON; Pulse Ox 96% ; kc3 11:06 BP 112 / 66 (auto/); kc3 11:07 Pulse 78 MON; Pulse Ox 98% ; kc3 11:54 BP 118 / 68; Pulse 99; Resp 18; Temp 97.6(O); Pulse Ox 99% on R/A; kc3 08:19 Body Mass Index 25.83 (81.65 kg, 177.80 cm) hs1 Vitals: 11:19 Log In Time: November 24, 2016 at 08:14. [facility] ED Course: 08:08 Patient visited by Sima Monterroso. mm15 08:08 Patient moved to Waiting mm15 08:09 Aashish Jane is Private Physician. mm15 08:15 Triage Initiated hs1 08:21 Patient moved to 12 hs1 08:32 Inserted peripheral IV: 20gauge IV in left antecubital area and blood collected. ml6 Patient tolerated the procedure well. Labs drawn. (by ED staff). Sent per order to lab. IV started by Fani Jones RN. 08:58 [facility]ina [facility]C [facility]. dt4 08:58 Peg Sanchez MD is Attending Physician. dt4 08:58 Patient visited by Mercedes Molina PA-C. dt4 09:05 [facility] Payment Agreement was scanned into [employer] and attached to record. lg 09:06 Liliam Iqbal RN is Primary Nurse. kc3 09:11 Ammonia (Little Green Tube on Ice, Not Pea Green) Sent. kc3 09:11 Amylase Sent. kc3 09:11 BMP Sent. kc3 09:11 CBC with Diff Sent. kc3 09:11 Lipase Sent. kc3 09:11 Liver Profile Sent. kc3 09:19 Patient visited by Reyna Holcomb PCA. ct3 09:19 EKG done. (by ED staff). Reviewed by Peg Sanchez MD. ct3 09:20 Patient moved to Ultrasound am10 09:24 ETHYL ALCOHOL (ETHANOL) Sent. kc3 09:24 C REACTIVE PROTEIN QUANTITATIV Sent. kc3 09:25 The patient / caregiver is instructed regarding the plan of care and ED course. kc3 09:40 Patient moved to 12 am10 10:00 Urine Culture Sent. dem1 10:00 Urinalysis Sent. dem1 10:04 Patient visited by Liliam Iqbal RN. kc3 10:14 US Abd Limited Returned. EDMS 10:43 Patient visited by Liliam Iqbal RN. kc3 10:44 Patient visited by Liliam Iqbal RN. kc3 11:14 Patient visited by Liliam Iqbal RN. kc3 11:19 Patient visited by Liliam Iqbal RN. kc3 11:26 Aashish Jane is Referral Physician. dt4 11:26 Krunal Greene is Referral Physician. dt4 11:54 Discontinued IV lock intact, bleeding controlled, pressure dressing applied, No kc3 redness/swelling at site. No procedures done that require assistance. Administered Medications: 09:25 Drug: NS 0.9% 1000 ml [sodium chloride 0.9 % intravenous solution] Route: IV; Rate: kc3 bolus; Site: left antecubital; 11:20 Follow up: IV Status: Completed infusion kc3 09:25 Drug: ketorolac 30 mg [ketorolac 30 mg/mL (1 mL) injection solution (1 mL)] Route: IVP; kc3 Site: left antecubital; 11:20 Follow up: Response: No Adverse Reaction kc3 09:25 Drug: Tigan 200 mg [Tigan 100 mg/mL intramuscular solution (2 mL)] Route: IM; Site: kc3 left gluteus; 11:20 Follow up: Response: No Adverse Reaction kc3 10:43 Drug: Sucralfate 1 grams [sucralfate 1 gram tablet (1 tabs)] Route: PO; kc3 10:44 Drug: GI Cocktail - (Alum-Mag Hydroxide-Simeth Suspension 225 mg-200 mg-25 mg/5 mL 30 kc3 ml, Lidocaine Liquid 2 % 10 ml, Hyoscyamine Liquid 10 ml) Route: PO; Order Results: Lab Order: [facility]; SPEC'M 11/24/16 08:30 Test: GLUCOSE, FASTING; Value: 120; Range: 70-105; Abnormal: Above high normal; Units: MG/DL; Status: F Test: BLOOD UREA NITROGEN; Value: 17; Range: 7-18; Units: MG/DL; Status: F Test: CREATININE FOR GFR; Value: 1.32; Range: 0.70-1.30; Abnormal: Above high normal; Units: MG/DL; Status: F Test: GLOMERULAR FILTRATION RATE; Value: 59.7; Range: >56; Status: F Test: SODIUM LEVEL; Value: 135; Range: 136-145; Abnormal: Below low normal; Units: MEQ/L; Status: F Test: POTASSIUM SERUM; Value: 3.8; Range: 3.5-5.1; Units: MEQ/L; Status: F Test: CHLORIDE LEVEL; Value: 96; Range: 98-107; Abnormal: Below low normal; Units: MEQ/L; Status: F Test: CARBON DIOXIDE LEVEL; Value: 28; Range: 21-32; Units: MEQ/L; Status: F Test: ANION GAP; Value: 11; Range: 8-16; Units: MEQ/L; Status: F Test: CALCIUM LEVEL; Value: 9.5; Range: 8.5-10.1; Units: MG/DL; Status: F Test Note: ; Units are mL/min/1.73 m2 Chronic Kidney Disease Staging per NKF: Stage I & II GFR >=60 Normal to Mildly Decreased Stage III GFR 30-59 Moderately Decreased Stage IV GFR 15-29 Severely Decreased Stage V GFR <15 Very Little GFR Left ESRD GFR <15 on ANIMAL CHIROPRACTOR Lab Order: CBC with Diff; AMILCAR 11/24/16 08:30 Test: WHITE BLOOD COUNT; Value: 8.8; Range: 4.0-10.0; Units: K/mm3; Status: F Test: RED BLOOD COUNT; Value: 4.97; Range: 4.30-6.10; Units: M/mm3; Status: F Test: HEMOGLOBIN; Value: 15.7; Range: 14.0-18.0; Units: g/dl; Status: F Test: HEMATOCRIT; Value: 47.5; Range: 42.0-52.0; Units: %; Status: F Test: MEAN CORPUSCULAR VOLUME; Value: 95.4; Range: 80.0-96.0; Units: fl; Status: F Test: MEAN CORPUSCULAR HEMOGLOBIN; Value: 31.6; Range: 27.0-33.0; Units: pg; Status: F Test: MEAN CORPUSCULAR HGB CONC; Value: 33.2; Range: 32.0-36.5; Units: g/dl; Status: F Test: RED CELL DISTRIBUTION WIDTH; Value: 11.5; Range: 11.5-14.5; Units: %; Status: F Test: PLATELET COUNT, AUTOMATED; Value: 410; Range: 150-450; Units: k/mm3; Status: F Test: NEUTROPHILS %; Value: 66.8; Range: 36.0-66.0; Abnormal: Above high normal; Units: %; Status: F Test: LYMPH %; Value: 22.5; Range: 24.0-44.0; Abnormal: Below low normal; Units: %; Status: F Test: MONO %; Value: 7.0; Range: 0.0-5.0; Abnormal: Above high normal; Units: %; Status: F Test: EOS %; Value: 1.6; Range: 0.0-3.0; Units: %; Status: F Test: BASO %; Value: 0.2; Range: 0.0-1.0; Units: %; Status: F Test: LARGE UNSTAINED CELL %; Value: 1.8; Range: 0.0-4.0; Units: %; Status: F Test: NEUTROPHILS #; Value: 5.8; Range: 1.8-7.7; Units: K/mm3; Status: F Test: LYMPH #; Value: 2.0; Range: 1.5-4.5; Units: K/mm3; Status: F Test: MONO #; Value: 0.6; Range: 0.0-0.8; Units: K/mm3; Status: F Test: EOS #; Value: 0.1; Range: 0.0-0.50; Units: K/mm3; Status: F Test: BASO #; Value: 0.0; Range: 0.0-0.2; Units: K/mm3; Status: F Test: LARGE UNSTAINED CELL #; Value: 0.2; Range: 0.0-0.4; Units: K/mm3; Status: F Lab Order: Lipase; [facility] 11/24/16 08:30 Test: LIPASE; Value: 391; Range: 73-393; Units: U/L; Status: F Lab Order: Liver Profile; [facility] 11/24/16 08:30 Test: AST/SGOT; Value: 20; Range: 15-37; Units: U/L; Status: F Test: ALT/SGPT; Value: 39; Range: 12-78; Units: U/L; Status: F Test: ALKALINE PHOSPHATASE; Value: 84; Range: 45-117; Units: U/L; Status: F Test: BILIRUBIN,TOTAL; Value: 0.6; Range: 0.2-1.0; Units: MG/DL; Status: F Test: BILIRUBIN,DIRECT; Value: 0.2; Range: 0.0-0.2; Units: MG/DL; Status: F Test: TOTAL PROTEIN; Value: 7.5; Range: 6.4-8.2; Units: GM/DL; Status: F Test: ALBUMIN; Value: 4.2; Range: 3.2-5.2; Units: GM/DL; Status: F Test: ALBUMIN/GLOBULIN RATIO; Value: 1.27; Range: 1.00-1.93; Status: F Lab Order: Amylase; SPEC 11/24/16 08:30 Test: AMYLASE; Value: 84; Range: 25-115; Units: U/L; Status: F Lab Order: Ammonia (Little [place] Tube on Ice, Not Pea Green); [facility] 11/24/16 08:30 Test: AMMONIA; Value: 15; Range: <32; Units: uMOL/L; Status: F Lab Order: Urinalysis; [facility] 11/24/16 09:57 Test: APPEARANCE, URINE; Value: HAZY; Range: CLEAR; Status: F Test: COLOR, URINE; Value: YELLOW; Range: YELLOW; Status: F Test: PH,URINE; Value: 5.0; Range: 5.0-9.0; Units: UNITS; Status: F Test: SPECIFIC GRAVITY URINE AUTO; Value: 1.015; Range: 1.002-1.035; Status: F Test: PROTEIN, URINE AUTO; Value: NEGATIVE; Range: NEGATIVE; Units: mg/dL; Status: F Test: GLUCOSE, URINE (UA) AUTO; Value: NEGATIVE; Range: NEGATIVE; Units: mg/dL; Status: F Test: KETONE, URINE AUTO; Value: NEGATIVE; Range: NEGATIVE; Units: mg/dL; Status: F Test: UROBILINOGEN, URINE AUTO; Value: 0.2; Range: 0.0-2.0; Units: mg/dL; Status: F Test: BILIRUBIN, URINE AUTO; Value: NEGATIVE; Range: NEGATIVE; Status: F Test: NITRITE, URINE AUTO; Value: NEGATIVE; Range: NEGATIVE; Status: F Test: LEUKOCYTE ESTERASE, URINE AUTO; Value: NEGATIVE; Range: NEGATIVE; Status: F Test: BLOOD, URINE BLOOD; Value: NEGATIVE; Range: NEGATIVE; Status: F Test: WBC, URINE AUTO; Value: 0; Range: 0-3; Units: /HPF; Status: F Test: RBC, URINE AUTO; Value: 1; Range: 0-3; Units: /HPF; Status: F Test: BACTERIA, URINE AUTO; Value: NEGATIVE; Range: NEGATIVE; Status: F Test: SQUAMOUS EPITHELIAL CELL UR AU; Value: 1; Range: 0-6; Units: /HPF; Status: F Test: HYALINE CAST, URINE AUTO; Value: 0; Range: 0-1; Units: /LPF; Status: F Lab Order: C REACTIVE PROTEIN QUANTITATIV; SPEC'M 11/24/16 08:30 Test: C REACTIVE PROTEIN QUANTITATIV; Value: 0.99; Range: 0.00-0.30; Abnormal: Above high normal; Units: MG/DL; Status: F Lab Order: ETHYL ALCOHOL (ETHANOL); SPEC'M 11/24/16 08:30 Test: ETHYL ALCOHOL (ETHANOL); Value: < 0.003; Range: 0.000-0.010; Units: %; Status: F Radiology Order: US Abd Limited Test: US Abd Limited REASON FOR EXAMINATION: UPPER ABD PAIN, HX OF PANCREATITIS; Abdominal right upper quadrant ultrasound, emergency room patient:; ; Comparisons are the CT studies of the abdomen and pelvis dated 11/14/2016 and; 11/01/2016.; ; On the comparison CT studies were findings compatible with inflammation in the; region of the pancreatic head and duodenal loop.; ; On the ultrasound study today the pancreas is obscured l and cannot be; visualized.; ; Ultrasonography is extremely limited as the only scanning windows are intercostal; windows.; ; The the patient has a cholecystectomy.; ; There is no intrahepatic or extrahepatic biliary duct dilatation, the common duct; is 3 mm in diameter.; ; There is limited evaluation of the hepatic parenchyma. Visualized hepatic; parenchyma is homogeneous.; ; The right kidney is normal size measuring 9.9 cm craniocaudad length. No right; renal hydronephrosis, calculus or mass are identified.; ; Impression; ; Very limited study. The pancreas is obscured , however, on recent comparison; abdomen CTs, here was evidence for pancreatitis. Follow-up evaluation of the; pancreas by MRI or by endoscopic ultrasonography might be considered to evaluate; for pancreatic head mass , given the persistent symptomatology.; ; ; Signed by; Constantine Sosa MD 11/24/2016 10:04 A; Outcome: 11:27 Discharge ordered by Provider. dt4 11:54 Discharge Assessment: Patient awake, alert and oriented x 3. No cognitive and/or kc3 functional deficits noted. Patient verbalized understanding of disposition instructions. patient administered narcotics - no. The following High Risk Discharge criteria are identified: None. Discharged to home ambulatory. Condition: stable. Discharge instructions given to patient, Instructed on discharge instructions, follow up and referral plans. medication usage, Demonstrated understanding of instructions, medications, Pt was receptive of discharge instructions/ teaching. Prescriptions given X 1. Ultrasound Study completed. Property :Personal belongings accompany Pt. 11:55 Patient left the ED. kc3 Signatures: Dispatcher [employer] EDMS FarzanehPhoebe, Reg Reg lg Giselle Reyes am10 Stanislaw Larson, RN RN ml6 Love Muhammad RN RN hs1 Reyna Holcomb, SUPERVISOR BOTTLE MACHINES SUPERVISOR BOTTLE MACHINES ct3 Manny Crump dem1 Sima Monterroso mm15 Mercedes Molina PA-Ronal PA-C dt4 Liliam Iqbal,RN RN kc3 MTDD
--- NOTE | 2016-11-24 21:28 | ECGEPIP ---
Stationary ECG Study [facility] - ED Test Date: 2016-11-24 Pat Name: ANA CORNEJO Department: Room: - Gender: M Adult Health Clinical Nurse Specialist: luis : 1960 Requested By: HEIDY Monique PA-C Order Number: [id number] Reading MD: Jayla Flowers Measurements Intervals [place] Rate: 93 P: 27 AK: 144 QRS: 15 QRSD: 99 T: -5 QT: 347 QTc: 433 Interpretive Statements SINUS RHYTHM NONSPECIFIC T-WAVE ABNORMALITY SIMILAR 11/14/16 Electronically Signed On 11-24-2016 21:28:15 EST by Jayla Flowers
--- NOTE | 2016-11-26 12:56 | EDDOCDS ---
Physician Documentation [facility] Name: Joao Brenner Age: 56 yrs Sex: Male : 1960 Arrival Date: 11/24/2016 Time: 08:07 Bed 12 Private MD: Aashish Jane H. Disposition: 11/24/16 11:27 Discharged to Home/Self Care. Impression: Upper abdominal pain, unspecified - BILATERAL, Nausea with vomiting, unspecified. - Condition is Stable. - Discharge Instructions: Abdominal Pain, Adult, Nausea and Vomiting. - Prescriptions for Tigan 300 mg Oral Capsule - take 1 capsule by ORAL route every 12 hours As needed; 30 capsule. - Medication Reconciliation, Local Pharmacy Hours form. - Follow up: Emergency Department; When: As needed; Reason: Worsening of conditions. Follow up: Aashish Jaen; When: 2 - 3 days; Reason: Wound/Symptom Recheck, Recheck today's complaints, Continuance of care. Follow up: Krunal Henson; When: Call to arrange an appointment; Reason: Wound/Symptom Recheck, Further diagnostic work-up, Recheck today's complaints, Continuance of care, To establish care. - Problem is new. - Symptoms have improved. Historical: - Allergies: No known drug Allergies; - Home Meds: 1. amitriptyline 50 mg Oral tab 1 tab nightly 2. baclofen 20 mg Oral tab daily 3. Citalopram 30 mg Oral once daily 4. Fish Oil 1,000 mg Oral cap 5. losartan 50 mg oral tab 1 tab once daily 6. potassium chloride 10 mEq Oral cpER 2 caps once daily 7. hydrochlorothiazide 25 mg Oral tab 1 tab once daily 8. Miralax 17 gram Oral pwpk 1 packet once daily 9. 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 No barriers to communication noted, The patient speaks fluent Taiwanese, Speaks appropriately for age. - Family history: Not pertinent. - : The pt / caregiver states he / she is not on anticoagulants. Home medication list is obtained from the patient, pill bottles. - Exposure Risk Screening:: None identified. Vital Signs: 11/24 08:19 BP 116 / 72; Pulse 110; Resp 18; Temp 97.5; Weight 81.65 kg / 180.01 lbs; Height 5 ft. hs1 10 in. (177.80 cm); Pain 10/10; 09:04 Pulse Ox 98% on R/A; ml6 09:26 BP 112 / 78 (auto/); kc3 09:26 Pulse 88 MON; Pulse Ox 96% ; kc3 09:45 Pulse 80 MON; Pulse Ox 95% ; kc3 09:46 BP 116 / 68 (auto/); kc3 10:06 BP 112 / 78 (auto/); kc3 10:07 Pulse 84 MON; Pulse Ox 98% ; kc3 10:26 BP 111 / 74 (auto/); kc3 10:26 Pulse 84 MON; Pulse Ox 95% ; kc3 10:46 BP 114 / 67 (auto/); kc3 10:46 Pulse 78 MON; Pulse Ox 96% ; kc3 11:06 BP 112 / 66 (auto/); kc3 11:07 Pulse 78 MON; Pulse Ox 98% ; kc3 11:54 BP 118 / 68; Pulse 99; Resp 18; Temp 97.6(O); Pulse Ox 99% on R/A; kc3 08:19 Body Mass Index 25.83 (81.65 kg, 177.80 cm) hs1 MDM: 09:03 Financial registration complete. lg 09:04 IV Saline Lock ordered. ml6 09:04 Undress patient appropriately for examination ordered. ml6 09:05 [facility] Payment Agreement was scanned into [employer] and attached to record. lg 09:05 BMP Ordered. EDMS 09:05 CBC with Diff Ordered. EDMS 09:05 Lipase Ordered. EDMS 09:05 Liver Profile Ordered. EDMS 09:05 Amylase Ordered. EDMS 09:05 Ammonia (Little [place] Tube on Ice, Not [place]a [place]) Ordered. EDMS 09:05 ECG WITH READING ER PHYS+CARDIAG ordered. EDMS 09:08 NS 0.9% 1000 ml IV at bolus once ordered. dt4 09:08 ketorolac 30 mg IVP once ordered. dt4 09:08 Tigan 200 mg IM once ordered. dt4 09:11 Urinalysis Ordered. EDMS 09:11 Urine Culture Ordered. EDMS 09:11 US Abd Limited Ordered. EDMS 09:13 NOTHING BY MOUTH+DIET ordered. EDMS 09:14 C REACTIVE PROTEIN QUANTITATIV Ordered. EDMS 09:14 ETHYL ALCOHOL (ETHANOL) Ordered. EDMS 10:18 GI Cocktail - (Alum-Mag Hydroxide-Simeth 30 ml, Lidocaine 10 ml, Hyoscyamine 10 ml) PO dt4 once; Pre-mixed 50mL unit dose ordered. 10:18 Sucralfate 1 grams PO once ordered. dt4 11/25 06:40 ED course: arlene henson and sivakumar faxed formal report of abdl us for fu mlg. ml 15:59 T-Sheet-- Draft Copy was scanned into [employer] and attached to record. gb 16:00 ECG/EKG was scanned into [employer] and attached to record. gb Administered Medications: 11/24 09:25 Drug: NS 0.9% 1000 ml [sodium chloride 0.9 % intravenous solution] Route: IV; Rate: kc3 bolus; Site: left antecubital; 11:20 Follow up: IV Status: Completed infusion kc3 09:25 Drug: ketorolac 30 mg [ketorolac 30 mg/mL (1 mL) injection solution (1 mL)] Route: IVP; kc3 Site: left antecubital; 11:20 Follow up: Response: No Adverse Reaction kc3 09:25 Drug: Tigan 200 mg [Tigan 100 mg/mL intramuscular solution (2 mL)] Route: IM; Site: kc3 left gluteus; 11:20 Follow up: Response: No Adverse Reaction kc3 10:43 Drug: Sucralfate 1 grams [sucralfate 1 gram tablet (1 tabs)] Route: PO; kc3 10:44 Drug: GI Cocktail - (Alum-Mag Hydroxide-Simeth Suspension 225 mg-200 mg-25 mg/5 mL 30 kc3 ml, Lidocaine Liquid 2 % 10 ml, Hyoscyamine Liquid 10 ml) Route: PO; Signatures: Dispatcher [employer] EDMS Dulce Rizvi MD MD ml Heather Eugene, Reg Reg gb Phoebe Moy, Reg Reg lg Stanislaw Larson RN RN ml6 Love Muhammad RN RN hs1 Mercedes Molina PA-C PARodriguezC dt4 Liliam Iqbal,RN RN kc3 The chart was reviewed and I authenticate all verbal orders and agree with the evaluation and treatment provided.Corrections: (The following items were deleted from the chart) :14 09:11 C REACTIVE PROTEIN QUANTITATIV+LAB ordered. EDMS EDMS : 09:11 ETHYL ALCOHOL (ETHANOL)+LAB ordered. EDMS EDMS Attachments: 09:05 [facility] Payment Agreement lg 11/25 15:59 T-Sheet-- Draft Copy gb 16:00 ECG/EKG gb Chart Complete MTDD
--- NOTE | 2016-11-26 12:56 | EDDOCDS ---
Nurse's Notes [facility] Name: Joao Cornejo Age: 56 yrs Sex: Male : 1960 Arrival Date: 11/24/2016 Time: 08:07 Bed 12 Private MD: Aashish Jane H. Diagnosis: Upper abdominal pain, unspecified-BILATERAL;Nausea with vomiting, unspecified Presentation: 11/24 08:14 Presenting complaint: Patient states: patient believes his pancreatitis is flaring up hs1 again. Patient reports not being able to eat or drink, not being able to go to the bathroom. Patient reports cramping and upset stomach and feeling faint. Adult Sepsis Screening: The patient does not have new or worsening altered mentation. Patient's respiratory rate is less than 22. Systolic blood pressure is greater than 100. Patient has a qSOFA score of 0- Negative Sepsis Screen. Suicide/Homicide risk assessment- the patient denies having any suicidal and/or homicidal ideations and does not present with any other emotional, behavioral or mental health complaints. Status: Patient is not a creative services writer or dependent. Transition of care: patient was not received from another setting of care. 08:14 Acuity: TAPAN Level 3 hs1 08:14 Method Of Arrival: Walkin/Carried/Asstd hs1 Triage Assessment: 08:19 General: Appears uncomfortable, Behavior is appropriate for age, cooperative. Pain: hs1 Location: abdomen Pain currently is 10 out of 10 on a pain scale. HIV screening NA for this visit Offered previously. Neurological: Reports weakness. Respiratory: No deficits noted. GI: Reports nausea, vomiting. Historical: - Allergies: No known drug Allergies; - Home Meds: 1. amitriptyline 50 mg Oral tab 1 tab nightly 2. baclofen 20 mg Oral tab daily 3. Citalopram 30 mg Oral once daily 4. Fish Oil 1,000 mg Oral cap 5. losartan 50 mg oral tab 1 tab once daily 6. potassium chloride 10 mEq Oral cpER 2 caps once daily 7. hydrochlorothiazide 25 mg Oral tab 1 tab once daily 8. Miralax 17 gram Oral pwpk 1 packet once daily 9. 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 No barriers to communication noted, The patient speaks fluent Hungarian, Speaks appropriately for age. - Family history: Not pertinent. - : The pt / caregiver states he / she is not on anticoagulants. Home medication list is obtained from the patient, pill bottles. - Exposure Risk Screening:: None identified. Screenin:33 Screening information is obtained from the patient. Fall risk: No risks identified. ml6 Assistance ADL's: requires no assistance with activities of daily living. Abuse/DV Screen: The patient / caregiver reports he/she is: not in a situation that causes fear, pain or injury. Nutritional screening: No deficits noted. Advance Directives: Currently, there is. home support is adequate. Assessment: 08:33 General: Appears in no apparent distress, Behavior is appropriate for age, cooperative. ml6 Pain: Location: abdomen Pain currently is 6 out of 10 on a pain scale. Pain does not radiate. Quality of pain is described as sharp, Pain began 1 day ago Is continuous Alleviated by nothing. Aggravated by increased activity. Cardiovascular: No deficits noted. Capillary refill < 3 seconds is brisk in bilateral fingers toes Heart tones S1 S2 present. Respiratory: No deficits noted. Airway is patent Respiratory effort is even, unlabored, Respiratory pattern is regular, symmetrical. GI: Abdomen is obese, Bowel sounds present X 4 quads. Abd is soft X 4 quads Abd is tender to palpation X 4 quads. Reports cramping, nausea, vomiting. 09:30 General: Appears in no apparent distress, comfortable, Behavior is appropriate for age, kc3 cooperative. Pain: Location: abdomen. Neurological: Level of Consciousness is awake, alert, obeys commands. Respiratory: No deficits noted. GI: Reports nausea. Derm: Skin is pink, warm & dry. 10:20 General: Appears in no apparent distress, comfortable, Behavior is appropriate for age, kc3 cooperative. Pain: Location: abdomen. Neurological: Level of Consciousness is awake, alert, obeys commands, Oriented to person, place, time. Respiratory: Respiratory effort is even, unlabored, Respiratory pattern is regular, symmetrical. Derm: Skin is pink, warm & dry. 11:18 General: Appears in no apparent distress, comfortable, Behavior is appropriate for age, kc3 cooperative. Pain: Location: abdomen. Neurological: No deficits noted. Respiratory: No deficits noted. Derm: Skin is pink, warm & dry. 11:53 General: Appears in no apparent distress, comfortable, Behavior is appropriate for age, kc3 cooperative. Pain: Location: abdomen. Neurological: Level of Consciousness is awake, alert, obeys commands, Oriented to person, place, time. Respiratory: Respiratory effort is even, unlabored. Derm: Skin is pink, warm & dry. Vital Signs: 08:19 BP 116 / 72; Pulse 110; Resp 18; Temp 97.5; Weight 81.65 kg; Height 5 ft. 10 in. hs1 (177.80 cm); Pain 10/10; 09:04 Pulse Ox 98% on R/A; ml6 09:26 BP 112 / 78 (auto/); kc3 09:26 Pulse 88 MON; Pulse Ox 96% ; kc3 09:45 Pulse 80 MON; Pulse Ox 95% ; kc3 09:46 BP 116 / 68 (auto/); kc3 10:06 BP 112 / 78 (auto/); kc3 10:07 Pulse 84 MON; Pulse Ox 98% ; kc3 10:26 BP 111 / 74 (auto/); kc3 10:26 Pulse 84 MON; Pulse Ox 95% ; kc3 10:46 BP 114 / 67 (auto/); kc3 10:46 Pulse 78 MON; Pulse Ox 96% ; kc3 11:06 BP 112 / 66 (auto/); kc3 11:07 Pulse 78 MON; Pulse Ox 98% ; kc3 11:54 BP 118 / 68; Pulse 99; Resp 18; Temp 97.6(O); Pulse Ox 99% on R/A; kc3 08:19 Body Mass Index 25.83 (81.65 kg, 177.80 cm) hs1 Vitals: 11:19 Log In Time: November 24, 2016 at 08:14. [facility] ED Course: 08:08 Patient visited by Sima Monterroso. mm15 08:08 Patient moved to Waiting mm15 08:09 Aashish Jane is Private Physician. mm15 08:15 Triage Initiated hs1 08:21 Patient moved to 12 hs1 08:32 Inserted peripheral IV: 20gauge IV in left antecubital area and blood collected. ml6 Patient tolerated the procedure well. Labs drawn. (by ED staff). Sent per order to lab. IV started by Fani Jones RN. 08:58 Mercedes Molina PA-C is PHCP. dt4 08:58 Peg Sanchez MD is Attending Physician. dt4 08:58 Patient visited by Mercedes Molina PA-C. dt4 09:05 [facility] Payment Agreement was scanned into Via[employer] and attached to record. lg 09:06 Liliam IqbalRN is Primary Nurse. kc3 09:11 Ammonia (Little [place] Tube on Ice, Not Pea Green) Sent. kc3 09:11 Amylase Sent. kc3 09:11 BMP Sent. kc3 09:11 CBC with Diff Sent. kc3 09:11 Lipase Sent. kc3 09:11 Liver Profile Sent. kc3 09:19 Patient visited by Reyna Holcomb PCA. ct3 09:19 EKG done. (by ED staff). Reviewed by Peg Sanchez MD. ct3 09:20 Patient moved to Ultrasound am10 09:24 ETHYL ALCOHOL (ETHANOL) Sent. kc3 09:24 C REACTIVE PROTEIN QUANTITATIV Sent. kc3 09:25 The patient / caregiver is instructed regarding the plan of care and ED course. kc3 09:40 Patient moved to 12 am10 10:00 Urine Culture Sent. dem1 10:00 Urinalysis Sent. dem1 10:04 Patient visited by Liliam Iqbal RN. kc3 10:14 US Abd Limited Returned. EDMS 10:43 Patient visited by Liliam Iqbal RN. kc3 10:44 Patient visited by Liliam Iqbal RN. kc3 11:14 Patient visited by Liliam Iqbal RN. kc3 11:19 Patient visited by Liliam Iqbal,JENIFFER. kc3 11:26 Aashish Jane is Referral Physician. dt4 11:26 Krunal Greene is Referral Physician. dt4 11:54 Discontinued IV lock intact, bleeding controlled, pressure dressing applied, No kc3 redness/swelling at site. No procedures done that require assistance. 22:16 EKG-ADULT Returned. EDMS 11/25 15:59 T-Sheet-- Draft Copy was scanned into [employer] and attached to record. gb 16:00 ECG/EKG was scanned into [employer] and attached to record. gb Administered Medications: 11/24 09:25 Drug: NS 0.9% 1000 ml [sodium chloride 0.9 % intravenous solution] Route: IV; Rate: kc3 bolus; Site: left antecubital; 11:20 Follow up: IV Status: Completed infusion 3 09:25 Drug: ketorolac 30 mg [ketorolac 30 mg/mL (1 mL) injection solution (1 mL)] Route: IVP; kc3 Site: left antecubital; 11:20 Follow up: Response: No Adverse Reaction 3 09:25 Drug: Tigan 200 mg [Tigan 100 mg/mL intramuscular solution (2 mL)] Route: IM; Site: kc3 left gluteus; 11:20 Follow up: Response: No Adverse Reaction kc3 10:43 Drug: Sucralfate 1 grams [sucralfate 1 gram tablet (1 tabs)] Route: PO; kc3 10:44 Drug: GI Cocktail - (Alum-Mag Hydroxide-Simeth Suspension 225 mg-200 mg-25 mg/5 mL 30 kc3 ml, Lidocaine Liquid 2 % 10 ml, Hyoscyamine Liquid 10 ml) Route: PO; Order Results: Lab Order: BMP; SPEC'M 11/24/16 08:30 Test: GLUCOSE, FASTING; Value: 120; Range: 70-105; Abnormal: Above high normal; Units: MG/DL; Status: F Test: BLOOD UREA NITROGEN; Value: 17; Range: 7-18; Units: MG/DL; Status: F Test: CREATININE FOR GFR; Value: 1.32; Range: 0.70-1.30; Abnormal: Above high normal; Units: MG/DL; Status: F Test: GLOMERULAR FILTRATION RATE; Value: 59.7; Range: >56; Status: F Test: SODIUM LEVEL; Value: 135; Range: 136-145; Abnormal: Below low normal; Units: MEQ/L; Status: F Test: POTASSIUM SERUM; Value: 3.8; Range: 3.5-5.1; Units: MEQ/L; Status: F Test: CHLORIDE LEVEL; Value: 96; Range: 98-107; Abnormal: Below low normal; Units: MEQ/L; Status: F Test: CARBON DIOXIDE LEVEL; Value: 28; Range: 21-32; Units: MEQ/L; Status: F Test: ANION GAP; Value: 11; Range: 8-16; Units: MEQ/L; Status: F Test: CALCIUM LEVEL; Value: 9.5; Range: 8.5-10.1; Units: MG/DL; Status: F Test Note: ; Units are mL/min/1.73 m2 Chronic Kidney Disease Staging per NKF: Stage I & II GFR >=60 Normal to Mildly Decreased Stage III GFR 30-59 Moderately Decreased Stage IV GFR 15-29 Severely Decreased Stage V GFR <15 Very Little GFR Left ESRD GFR <15 on CABLE TELEVISION TECHNICIAN Lab Order: CBC with Diff; SPEC'M 11/24/16 08:30 Test: WHITE BLOOD COUNT; Value: 8.8; Range: 4.0-10.0; Units: K/mm3; Status: F Test: RED BLOOD COUNT; Value: 4.97; Range: 4.30-6.10; Units: M/mm3; Status: F Test: HEMOGLOBIN; Value: 15.7; Range: 14.0-18.0; Units: g/dl; Status: F Test: HEMATOCRIT; Value: 47.5; Range: 42.0-52.0; Units: %; Status: F Test: MEAN CORPUSCULAR VOLUME; Value: 95.4; Range: 80.0-96.0; Units: fl; Status: F Test: MEAN CORPUSCULAR HEMOGLOBIN; Value: 31.6; Range: 27.0-33.0; Units: pg; Status: F Test: MEAN CORPUSCULAR HGB CONC; Value: 33.2; Range: 32.0-36.5; Units: g/dl; Status: F Test: RED CELL DISTRIBUTION WIDTH; Value: 11.5; Range: 11.5-14.5; Units: %; Status: F Test: PLATELET COUNT, AUTOMATED; Value: 410; Range: 150-450; Units: k/mm3; Status: F Test: NEUTROPHILS %; Value: 66.8; Range: 36.0-66.0; Abnormal: Above high normal; Units: %; Status: F Test: LYMPH %; Value: 22.5; Range: 24.0-44.0; Abnormal: Below low normal; Units: %; Status: F Test: MONO %; Value: 7.0; Range: 0.0-5.0; Abnormal: Above high normal; Units: %; Status: F Test: EOS %; Value: 1.6; Range: 0.0-3.0; Units: %; Status: F Test: BASO %; Value: 0.2; Range: 0.0-1.0; Units: %; Status: F Test: LARGE UNSTAINED CELL %; Value: 1.8; Range: 0.0-4.0; Units: %; Status: F Test: NEUTROPHILS #; Value: 5.8; Range: 1.8-7.7; Units: K/mm3; Status: F Test: LYMPH #; Value: 2.0; Range: 1.5-4.5; Units: K/mm3; Status: F Test: MONO #; Value: 0.6; Range: 0.0-0.8; Units: K/mm3; Status: F Test: EOS #; Value: 0.1; Range: 0.0-0.50; Units: K/mm3; Status: F Test: BASO #; Value: 0.0; Range: 0.0-0.2; Units: K/mm3; Status: F Test: LARGE UNSTAINED CELL #; Value: 0.2; Range: 0.0-0.4; Units: K/mm3; Status: F Lab Order: Lipase; SPEC' 11/24/16 08:30 Test: LIPASE; Value: 391; Range: 73-393; Units: U/L; Status: F Lab Order: Liver Profile; SPEC' 11/24/16 08:30 Test: AST/SGOT; Value: 20; Range: 15-37; Units: U/L; Status: F Test: ALT/SGPT; Value: 39; Range: 12-78; Units: U/L; Status: F Test: ALKALINE PHOSPHATASE; Value: 84; Range: 45-117; Units: U/L; Status: F Test: BILIRUBIN,TOTAL; Value: 0.6; Range: 0.2-1.0; Units: MG/DL; Status: F Test: BILIRUBIN,DIRECT; Value: 0.2; Range: 0.0-0.2; Units: MG/DL; Status: F Test: TOTAL PROTEIN; Value: 7.5; Range: 6.4-8.2; Units: GM/DL; Status: F Test: ALBUMIN; Value: 4.2; Range: 3.2-5.2; Units: GM/DL; Status: F Test: ALBUMIN/GLOBULIN RATIO; Value: 1.27; Range: 1.00-1.93; Status: F Lab Order: Amylase; [facility] 11/24/16 08:30 Test: AMYLASE; Value: 84; Range: 25-115; Units: U/L; Status: F Lab Order: Ammonia (Little [place] Tube on Ice, Not Pea Green); [facility] 11/24/16 08:30 Test: AMMONIA; Value: 15; Range: <32; Units: uMOL/L; Status: F Lab Order: Urinalysis; [facility] 11/24/16 09:57 Test: APPEARANCE, URINE; Value: HAZY; Range: CLEAR; Status: F Test: COLOR, URINE; Value: YELLOW; Range: YELLOW; Status: F Test: PH,URINE; Value: 5.0; Range: 5.0-9.0; Units: UNITS; Status: F Test: SPECIFIC GRAVITY URINE AUTO; Value: 1.015; Range: 1.002-1.035; Status: F Test: PROTEIN, URINE AUTO; Value: NEGATIVE; Range: NEGATIVE; Units: mg/dL; Status: F Test: GLUCOSE, URINE (UA) AUTO; Value: NEGATIVE; Range: NEGATIVE; Units: mg/dL; Status: F Test: KETONE, URINE AUTO; Value: NEGATIVE; Range: NEGATIVE; Units: mg/dL; Status: F Test: UROBILINOGEN, URINE AUTO; Value: 0.2; Range: 0.0-2.0; Units: mg/dL; Status: F Test: BILIRUBIN, URINE AUTO; Value: NEGATIVE; Range: NEGATIVE; Status: F Test: NITRITE, URINE AUTO; Value: NEGATIVE; Range: NEGATIVE; Status: F Test: LEUKOCYTE ESTERASE, URINE AUTO; Value: NEGATIVE; Range: NEGATIVE; Status: F Test: BLOOD, URINE BLOOD; Value: NEGATIVE; Range: NEGATIVE; Status: F Test: WBC, URINE AUTO; Value: 0; Range: 0-3; Units: /HPF; Status: F Test: RBC, URINE AUTO; Value: 1; Range: 0-3; Units: /HPF; Status: F Test: BACTERIA, URINE AUTO; Value: NEGATIVE; Range: NEGATIVE; Status: F Test: SQUAMOUS EPITHELIAL CELL UR AU; Value: 1; Range: 0-6; Units: /HPF; Status: F Test: HYALINE CAST, URINE AUTO; Value: 0; Range: 0-1; Units: /LPF; Status: F Lab Order: Urine Culture; SPEC'M 11/24/16 09:57 Test: URINE CULTURE; Value: <EXTERNAL COMMENT eCWMed> FULL REPORT IN LAB NOTES (eCW and Medent).; Status: F Test: URINE CULTURE; Value: URINE CULTURE RESULT NO GROWTH CLINICAL SIGNIFICANCE 1 ORGANISM; Status: F Lab Order: C REACTIVE PROTEIN QUANTITATIV; SPEC'M 11/24/16 08:30 Test: C REACTIVE PROTEIN QUANTITATIV; Value: 0.99; Range: 0.00-0.30; Abnormal: Above high normal; Units: MG/DL; Status: F Lab Order: ETHYL ALCOHOL (ETHANOL); SPEC'M 11/24/16 08:30 Test: ETHYL ALCOHOL (ETHANOL); Value: < 0.003; Range: 0.000-0.010; Units: %; Status: F Radiology Order: EKG-ADULT Test: EKG-ADULT REASON FOR EXAMINATION: Abdomen Pain; Stationary ECG Study; [facility] - ED; ; Test Date: 2016-11-24; Pat Name: JOAO CORNEJO Department:; Room: -; Gender: M [place] Carter: luis; : 1960 Requested By: MERCEDES Monique PA-C; Order Number: [id number] Reading MD: Jayla Flowers; Measurements; Intervals [place]; Rate: 93 P: 27; OH: 144 QRS: 15; QRSD: 99 T: -5; QT: 347; QTc: 433; Interpretive Statements; SINUS RHYTHM; NONSPECIFIC T-WAVE ABNORMALITY; SIMILAR 11/14/16; Electronically Signed On 11-24-2016 21:28:15 EST by Jayla Flowers; Radiology Order: US Abd Limited Test: US Abd Limited REASON FOR EXAMINATION: UPPER ABD PAIN, HX OF PANCREATITIS; Abdominal right upper quadrant ultrasound, emergency room patient:; ; Comparisons are the CT studies of the abdomen and pelvis dated 11/14/2016 and; 11/01/2016.; ; On the comparison CT studies were findings compatible with inflammation in the; region of the pancreatic head and duodenal loop.; ; On the ultrasound study today the pancreas is obscured l and cannot be; visualized.; ; Ultrasonography is extremely limited as the only scanning windows are intercostal; windows.; ; The the patient has a cholecystectomy.; ; There is no intrahepatic or extrahepatic biliary duct dilatation, the common duct; is 3 mm in diameter.; ; There is limited evaluation of the hepatic parenchyma. Visualized hepatic; parenchyma is homogeneous.; ; The right kidney is normal size measuring 9.9 cm craniocaudad length. No right; renal hydronephrosis, calculus or mass are identified.; ; Impression; ; Very limited study. The pancreas is obscured , however, on recent comparison; abdomen CTs, here was evidence for pancreatitis. Follow-up evaluation of the; pancreas by MRI or by endoscopic ultrasonography might be considered to evaluate; for pancreatic head mass , given the persistent symptomatology.; ; ; Signed by; Constantine Sosa MD 11/24/2016 10:04 A; Outcome: 11:27 Discharge ordered by Provider. dt4 11:54 Discharge Assessment: Patient awake, alert and oriented x 3. No cognitive and/or kc3 functional deficits noted. Patient verbalized understanding of disposition instructions. patient administered narcotics - no. The following High Risk Discharge criteria are identified: None. Discharged to home ambulatory. Condition: stable. Discharge instructions given to patient, Instructed on discharge instructions, follow up and referral plans. medication usage, Demonstrated understanding of instructions, medications, Pt was receptive of discharge instructions/ teaching. Prescriptions given X 1. Ultrasound Study completed. Property :Personal belongings accompany Pt. 11:55 Patient left the ED. kc3 Signatures: Dispatcher [employer] EDMS Heather Eugene, Reg Reg gb Phoebe Moy, Reg Reg lg Giselle Reyes am10 Stanislaw Larson, RN RN ml6 Love Muhammad RN RN hs1 Reyna Holcomb, LOCKSTITCH SLEEVE MAKER LOCKSTITCH SLEEVE MAKER ct3 Manny Crump dem1 Sima Monterroso mm15 Mercedes Molina, PA-C PA-C dt4 Liliam Iqbal,RN RN kc3 Chart Complete MTDD
--- NOTE | 2016-11-26 12:56 | EDDOCDS ---
Physician Documentation [facility] Name: Joao Brenner Age: 56 yrs Sex: Male : 1960 Arrival Date: 11/24/2016 Time: 08:07 Bed 12 Private MD: Aashish Jane H. Disposition: 11/24/16 11:27 Discharged to Home/Self Care. Impression: Upper abdominal pain, unspecified - BILATERAL, Nausea with vomiting, unspecified. - Condition is Stable. - Discharge Instructions: Abdominal Pain, Adult, Nausea and Vomiting. - Prescriptions for Tigan 300 mg Oral Capsule - take 1 capsule by ORAL route every 12 hours As needed; 30 capsule. - Medication Reconciliation, Local Pharmacy Hours form. - Follow up: Emergency Department; When: As needed; Reason: Worsening of conditions. Follow up: Aashish Jane; When: 2 - 3 days; Reason: Wound/Symptom Recheck, Recheck today's complaints, Continuance of care. Follow up: Krunal Henson; When: Call to arrange an appointment; Reason: Wound/Symptom Recheck, Further diagnostic work-up, Recheck today's complaints, Continuance of care, To establish care. - Problem is new. - Symptoms have improved. Historical: - Allergies: No known drug Allergies; - Home Meds: 1. amitriptyline 50 mg Oral tab 1 tab nightly 2. baclofen 20 mg Oral tab daily 3. Citalopram 30 mg Oral once daily 4. Fish Oil 1,000 mg Oral cap 5. losartan 50 mg oral tab 1 tab once daily 6. potassium chloride 10 mEq Oral cpER 2 caps once daily 7. hydrochlorothiazide 25 mg Oral tab 1 tab once daily 8. Miralax 17 gram Oral pwpk 1 packet once daily 9. 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 No barriers to communication noted, The patient speaks fluent [place] Zealander, Speaks appropriately for age. - Family history: Not pertinent. - : The pt / caregiver states he / she is not on anticoagulants. Home medication list is obtained from the patient, pill bottles. - Exposure Risk Screening:: None identified. Vital Signs: 11/24 08:19 BP 116 / 72; Pulse 110; Resp 18; Temp 97.5; Weight 81.65 kg / 180.01 lbs; Height 5 ft. hs1 10 in. (177.80 cm); Pain 10/10; 09:04 Pulse Ox 98% on R/A; ml6 09:26 BP 112 / 78 (auto/); kc3 09:26 Pulse 88 MON; Pulse Ox 96% ; kc3 09:45 Pulse 80 MON; Pulse Ox 95% ; kc3 09:46 BP 116 / 68 (auto/); kc3 10:06 BP 112 / 78 (auto/); kc3 10:07 Pulse 84 MON; Pulse Ox 98% ; kc3 10:26 BP 111 / 74 (auto/); kc3 10:26 Pulse 84 MON; Pulse Ox 95% ; kc3 10:46 BP 114 / 67 (auto/); kc3 10:46 Pulse 78 MON; Pulse Ox 96% ; kc3 11:06 BP 112 / 66 (auto/); kc3 11:07 Pulse 78 MON; Pulse Ox 98% ; kc3 11:54 BP 118 / 68; Pulse 99; Resp 18; Temp 97.6(O); Pulse Ox 99% on R/A; kc3 08:19 Body Mass Index 25.83 (81.65 kg, 177.80 cm) hs1 MDM: 09:03 Financial registration complete. lg 09:04 IV Saline Lock ordered. ml6 09:04 Undress patient appropriately for examination ordered. ml6 09:05 [facility] Payment Agreement was scanned into WritePath and attached to record. lg 09:05 BMP Ordered. EDMS 09:05 CBC with Diff Ordered. EDMS 09:05 Lipase Ordered. EDMS 09:05 Liver Profile Ordered. EDMS 09:05 Amylase Ordered. EDMS 09:05 Ammonia ([place] Tube on Ice, Not [place]a Green) Ordered. EDMS 09:05 ECG WITH READING ER PHYS+CARDIAG ordered. EDMS 09:08 NS 0.9% 1000 ml IV at bolus once ordered. dt4 09:08 ketorolac 30 mg IVP once ordered. dt4 09:08 Tigan 200 mg IM once ordered. dt4 09:11 Urinalysis Ordered. EDMS 09:11 Urine Culture Ordered. EDMS 09:11 US Abd Limited Ordered. EDMS 09:13 NOTHING BY MOUTH+DIET ordered. EDMS 09:14 C REACTIVE PROTEIN QUANTITATIV Ordered. EDMS 09:14 ETHYL ALCOHOL (ETHANOL) Ordered. EDMS 10:18 GI Cocktail - (Alum-Mag Hydroxide-Simeth 30 ml, Lidocaine 10 ml, Hyoscyamine 10 ml) PO dt4 once; Pre-mixed 50mL unit dose ordered. 10:18 Sucralfate 1 grams PO once ordered. dt4 11/25 06:40 ED course: arlene henson and sivakumar faxed formal report of abdl us for fu mlg. ml 15:59 T-Sheet-- Draft Copy was scanned into WritePath and attached to record. gb 16:00 ECG/EKG was scanned into WritePath and attached to record. gb Administered Medications: 11/24 09:25 Drug: NS 0.9% 1000 ml [sodium chloride 0.9 % intravenous solution] Route: IV; Rate: kc3 bolus; Site: left antecubital; 11:20 Follow up: IV Status: Completed infusion kc3 09:25 Drug: ketorolac 30 mg [ketorolac 30 mg/mL (1 mL) injection solution (1 mL)] Route: IVP; kc3 Site: left antecubital; 11:20 Follow up: Response: No Adverse Reaction kc3 09:25 Drug: Tigan 200 mg [Tigan 100 mg/mL intramuscular solution (2 mL)] Route: IM; Site: kc3 left gluteus; 11:20 Follow up: Response: No Adverse Reaction kc3 10:43 Drug: Sucralfate 1 grams [sucralfate 1 gram tablet (1 tabs)] Route: PO; kc3 10:44 Drug: GI Cocktail - (Alum-Mag Hydroxide-Simeth Suspension 225 mg-200 mg-25 mg/5 mL 30 kc3 ml, Lidocaine Liquid 2 % 10 ml, Hyoscyamine Liquid 10 ml) Route: PO; Signatures: Dispatcher [employer] EDMS Dulce Rizvi MD MD ml Heather Eugene, Reg Reg gb Phoebe Moy, Reg Reg lg Stanislaw Larson RN RN ml6 Love Muhammad RN RN hs1 Mercedes Molina PA-C PARodriguezC dt4 Liliam Iqbal,RN RN kc3 The chart was reviewed and I authenticate all verbal orders and agree with the evaluation and treatment provided.Corrections: (The following items were deleted from the chart) :14 09:11 C REACTIVE PROTEIN QUANTITATIV+LAB ordered. EDMS EDMS : 09:11 ETHYL ALCOHOL (ETHANOL)+LAB ordered. EDMS EDMS Attachments: 09:05 [facility] Payment Agreement lg 11/25 15:59 T-Sheet-- Draft Copy gb 16:00 ECG/EKG gb Chart Complete MTDD
== END 2016-11-24 11:55 | disposition home or self-care (01) ==
LOC: M ED 08:07
DX: R10.11 Right upper quadrant pain (principal); R10.12 Left upper quadrant pain; R11.2 Nausea with vomiting, unspecified; I10 Essential (primary) hypertension; F32.9 Major depressive disorder, single episode, unspecified; G89.29 Other chronic pain; M54.2 Cervicalgia; Z87.19 Personal history of other diseases of the digestive system; F10.10 Alcohol abuse, uncomplicated; Z79.899 Other long term (current) drug therapy
CPT/HCPCS: 36415; 76705; 80048; 80076; 81001; 82140; 82150; 83690; 85025; 86140; 87086; 93005; 96361; 96372; 96374; 99284; G0480; J1885; J3250

== ENCOUNTER → 2016-12-05 | Outpatient (CLI) | payer MEDICARE, MEDICAID ==
[~2016-12-05] MED LIST changes: +CITA40TA4 PO; +CREO24CA PO; +DEXI30CA PO
[2016-12-05 09:18] LABS: ALBUMIN 3.4 GM/DL (3.2-5.2); ALBUMIN/GLOBULIN RATIO 1.17 (1.00-1.93); BILIRUBIN,DIRECT 0.1 MG/DL (0.0-0.2); BILIRUBIN,TOTAL 0.2 MG/DL (0.2-1.0); TOTAL PROTEIN 6.3 GM/DL (6.4-8.2)
[2016-12-08 00:07] LABS: IgG SERUM (part of Subclasses) 665 mg/dL (700-1600); IgG Subclass 1 217 mg/dL (422-1292); IgG Subclass 2 167 mg/dL (117-747); IgG Subclass 3 15 mg/dL (41-129); IgG Subclass 4 24 mg/dL (1-291)
== END ==
LOC: M LAB 08:05
PROVIDERS: ATTEND Internal Medicine Gastroenterology
DX: K85.90 Acute pancreatitis without necrosis or infection, unspecified (principal)

== ENCOUNTER 2016-12-11 00:07 | Inpatient (IN) | payer MEDICARE, MEDICAID ==
[~2016-12-11] VITALS: Ht 177.8 cm; Wt 87.6 kg
[~2016-12-11 00:07] MED LIST changes: -CITA40TA4 PO; -CREO24CA PO; -DEXI30CA PO
[2016-12-11 00:50] LABS: BASO % 0.5 % (0.0-1.0); EOS # 0.3 K/mm3 (0.0-0.50); EOS % 6.2 % (0.0-3.0); LARGE UNSTAINED CELL # 0.1 K/mm3 (0.0-0.4); LARGE UNSTAINED CELL % 2.3 % (0.0-4.0); LYMPH # 1.4 K/mm3 (1.5-4.5); LYMPH % 27.5 % (24.0-44.0); MEAN CORPUSCULAR HEMOGLOBIN 31.6 pg (27.0-33.0); MEAN CORPUSCULAR HGB CONC 33.7 g/dl (32.0-36.5); MEAN CORPUSCULAR VOLUME 93.9 fl (80.0-96.0); MONO # 0.4 K/mm3 (0.0-0.8); MONO % 7.5 % (0.0-5.0); NEUTROPHILS # 2.8 K/mm3 (1.8-7.7); NEUTROPHILS % 56.1 % (36.0-66.0); PLATELET COUNT, AUTOMATED 309 k/mm3 (150-450); RED CELL DISTRIBUTION WIDTH 12.3 % (11.5-14.5)
[2016-12-11] MEDS ORDERED: MORPHINE 2 MG/ML 1ML SYRINGE As Ordered ONE (00:56)
[2016-12-11] MEDS ORDERED: FOLIC ACID 1MG/0.2ML VIAL As Ordered ONE (00:57)
[2016-12-11] MEDS ORDERED: THIAMINE HCL 200 MG/2 ML VIAL (J3411) As Ordered ONE (00:58)
[2016-12-11] MEDS ORDERED: MVI -ADULT INJECTION 10 ML VIAL As Ordered ONE (00:58)
[2016-12-11 01:00] LABS: ANION GAP 11 MEQ/L (8-16); BLOOD UREA NITROGEN 12 MG/DL (7-18); CALCIUM LEVEL 8.4 MG/DL (8.5-10.1); CARBON DIOXIDE LEVEL 26 MEQ/L (21-32); CHLORIDE LEVEL 105 MEQ/L (98-107); CREATININE FOR GFR 0.85 MG/DL (0.70-1.30); GLOMERULAR FILTRATION RATE > 60.0 (>56); GLUCOSE, FASTING 159 MG/DL (70-105); POTASSIUM SERUM 3.6 MEQ/L (3.5-5.1); SODIUM LEVEL 142 MEQ/L (136-145)
[2016-12-11 01:01] LABS: ALBUMIN 3.5 GM/DL (3.2-5.2); ALBUMIN/GLOBULIN RATIO 1.17 (1.00-1.93); ALKALINE PHOSPHATASE 94 U/L (45-117); ALT/SGPT 19 U/L (12-78); AMYLASE 594 U/L (25-115); AST/SGOT 16 U/L (15-37); BILIRUBIN,DIRECT 0.1 MG/DL (0.0-0.2); BILIRUBIN,TOTAL 0.5 MG/DL (0.2-1.0); TOTAL PROTEIN 6.5 GM/DL (6.4-8.2)
[2016-12-11] MEDS ORDERED: ISOVUE-370 76% 100ML VIAL (Q9967) As Ordered ONE (01:31)
[2016-12-11] MEDS ORDERED: HYDROmorphone HCL 1 MG/ML SYRINGE (J1170) As Ordered ONE (01:49)
[2016-12-11] MEDS ORDERED: CREO24CA PO (02:07)
[2016-12-11] MEDS ORDERED: DEXI30CA PO (02:07)
[2016-12-11] MEDS ORDERED: HYDR-3713 PO (02:08)
[2016-12-11] MEDS ORDERED: CITA40TA4 PO (02:10)
--- NOTE | 2016-12-11 02:20 | REPUSA ---
CLINICAL HISTORY: Abdominal pain. TECHNIQUE: Multiple axial, sagittal and coronal CT images were obtained through the abdomen and pelvi s after administration of intravenous contrast material. COMMENTS: Enlargement, hypodensity of the pancreatic head. Significant surrounding fat stranding. Mildly dilate d fluid filled duodenum. The liver is mildly enlarged with decreased attenuation without mass or defect. There is no intra or extrahepatic biliary ductal dilatation. The spleen is normal. The gallbladder is surgically absent. The pancreas is of normal contour and attenuation characteristi cs. There is no evidence of adrenal mass. Both kidneys demonstrate prompt and equal nephrograms. The kidneys are normal in size, shape and conf iguration. There is no evidence of renal or ureteral mass. No renal or ureteral calculi are identifie d. There is no hydroureter or hydronephrosis. No evidence for appendicitis. There is no bowel wall thickening. No evidence for small or large ada l obstruction. There is no evidence of abdominal ascites or lymphadenopathy. There is no evidence of intrinsic or extrinsic bladder mass. There is no pelvic ascites or lymphadeno zenia. Mild prostatomegaly. Images of the lung bases show no evidence of pleural or parenchymal mass. There are no pleural effusi ons. Bilateral basilar atelectatic pulmonary changes. The bony structures are free of lytic or blastic lesions. Multilevel degenerative changes are seen in volving the thoracolumbar spine. Scattered calcifications are seen involving the aorta and major bran ches compatible with atherosclerosis. IMPRESSION: Acute pancreatitis. Ileus. Hepatomegaly with fatty liver infiltration. Thank you for your kind referral of this patient.
[2016-12-11] MEDS ORDERED: IBUPROFEN 400 MG TAB PO PRN (02:45)
[2016-12-11] MEDS ORDERED: MORPHINE 2 MG/ML 1ML SYRINGE IV PRN (02:45)
[2016-12-11] MEDS ORDERED: NS 1,000 ML IV SCH (02:46)
[2016-12-11] MEDS ORDERED: EPIDURAL/PCA KEYS XX PRN (03:00)
[2016-12-11] MEDS ORDERED: MORPHINE PCA 1MG/ML 100ML CADD IV PRN (03:00)
[2016-12-11] MEDS ORDERED: NALOXONE INJ 0.4 MG/1 ML VIAL (J2310) IV PRN (03:00)
[2016-12-11] MEDS ORDERED: diphenhydrAMINE INJ 50MG/ML VIAL (J1200) IV PRN (03:00)
[2016-12-11] MEDS ORDERED: OXAZEPAM 10 MG CAP PO PRN (03:00)
[2016-12-11] MEDS ORDERED: NALBUPHINE HCL 10 MG/ML AMP (J2300) IV PRN (03:00)
[2016-12-11] MEDS ORDERED: BACLOFEN 10 MG TAB PO PRN (03:00)
[2016-12-11] MEDS ORDERED: MORPHINE 4 MG/ML 1ML SYRINGE As Ordered ONE ×2 (03:20→04:59)
--- NOTE | 2016-12-11 06:09 | HPE ---
DATE OF ADMISSION: 12/11/2016 CHIEF COMPLAINT: Abdominal pain. HISTORY OF PRESENT ILLNESS (HPI): 56-year-old male with history of alcohol abuse , chronic pancreatitis, chronic neck pain, cervical myelopathy with left greater than right, depression, hypertension, cholecystectomy, cervical surgery C2-7, left anterior cruciate ligament (ACL) repair of the knee presents to the emergency room with a two day history of worsening epigastric, left upper quadrant abdominal pain radiating diffusely across the abdomen. The patient reports some nausea without vomiting, no fever or chills. He describes the pain as unrelenting with no ameliorating factors. No medications were taken. No constipation or diarrhea. The patient states that he gets this way when he has pancreatitis. He denies any shortness of breath, palpitations, lightheadedness, dizziness, denies changes in weight but has had decreased oral intake for the past two days due to severe pain with anorexia. He denies upper or lower extremity weakness or paresthesias. Hospitalist service was called for admission for acute on chronic pancreatitis, lipase level 7000. CT of the abdomen shows acute pancreatitis, fatty liver and hepatomegaly, ileus. PAST MEDICAL HISTORY: 1. Alcoholism. 2. Alcohol abuse. 3. Chronic pancreatitis. 4. Cervical myelopathy with left greater than right chronic neck pain. 5. Depression. 6. Hypertension. 7. Pancreatitis. 8. Diverticulosis. 9. Bradycardia. PAST SURGICAL HISTORY: 1. Cholecystectomy. 2. Appendectomy. 3. Cervical surgery C2-7. 4. Left ACL repair. HOME MEDICATIONS: - amitriptyline 50 mg nightly - baclofen 20 daily - Citalopram 30 daily - fish oil 1 gram daily - hydrochlorothiazide 25 daily - Losartan 50 daily - MiraLAX 1 packet daily ALLERGIES: NORVASC versus PROTONIX. FAMILY HISTORY: Father of heart attack at 76, mother of heart attack 63, sister of cervical cancer. SOCIAL HISTORY: Last drink was over a month ago, nonsmoker. Alcohol abuse mostly beer, previously drank seven beers per day. Currently on disability but still occasional helpful with jacky. 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 Lives at home with his , no pets. REVIEW OF SYSTEMS: Per HPI, 12-point system otherwise negative. PHYSICAL EXAMINATION: VITAL SIGNS: Blood pressure 138/90, pulse 100 sinus, respiratory 22, afebrile, 95% on room air. 86.18 kg. 5 foot, 10 inches tall. GENERAL: The patient is awake, alert and oriented times three. Anicteric sclerae , no jaundice, no respiratory distress. HEENT/NECK: Face is symmetric. No facial droop. Neck is supple, full range of motion, no cervical lymphadenopathy or thyromegaly. Dry mucous membranes. LUNGS: Clear to auscultation, no wheezing, rales or rhonchi. HEART: S1, S2, sinus rhythm, no murmurs, rubs, gallops. ABDOMEN: Soft, diffusely tender, no rebound or guarding. Positive bowel sounds in four quadrants. EXTREMITIES: No pitting edema, cyanosis or clubbing. LABORATORY DATA: White count 5, hemoglobin 12, hematocrit 37, platelet count 309 , 56% neutrophils. Sodium 142, potassium 3.6, chloride 105, bicarbonate 26, BUN 12, creatinine 0.85 , glucose 159. Total bilirubin (T-bili) 0.5, direct bilirubin 0.1, total protein 6.5, albumin 3.5, albumin globulin ratio 1.17, AST 16, ALT 19, alkaline phosphatase 94, amylase 594, lipase 7940. CT of the abdomen and pelvis shows mild prostatomegaly, ileus, acute pancreatitis, hepatomegaly with fatty liver infiltration. ASSESSMENT AND PLAN: This is a 56-year-old male with history of chronic pancreatitis, alcohol abuse, chronic alcoholism, cervical myelopathy, chronic neck pain, depression, hypertension, pancreatitis, diverticulosis, cholecystectomy, appendectomy who presents to the emergency room with two day history of epigastric abdominal pain that was radiating diffusely across the abdomen without fever or chills, some nausea without vomiting. The patient is admitted for acute pancreatitis as an inpatient for at least two midnights under hospitalist service. He will be assigned to Dr. Praful Tan for the following issues: 1. Acute pancreatitis. The patient will be kept nothing by mouth (NPO) with intravenous (IV) fluids, pain medication. 2. History of alcohol abuse. Last drink was over a month ago. Multiple vitamins, thiamine, folate, IV fluids for now. 3. History of cervical myelopathy. Follows up with his neurosurgeon. 4. Hypertension. Stable, continue Losartan, hold off on hydrochlorothiazide since the patient will be receiving IV fluids. 5. Chronic depression. May resume home dose of citalopram. 6. Hyperlipidemia. May continue fish oil. Deep venous thrombosis (DVT) prophylaxis: Compresssion stockings, Lovenox daily. The patient will be assigned to Dr. Praful Tan at 7 a.m. on 12/11/2016. MTDD
--- NOTE | 2016-12-11 06:10 | EDDOCDS ---
Physician Documentation [facility] Name: Joao Brenner Age: 56 yrs Sex: Male : 1960 Arrival Date: 12/11/2016 Time: 00:07 Bed 11 Private MD: Disposition: 12/11/16 02:46 Hospitalization ordered by Jonelle Springer for Inpatient Admission. 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 - Bed requested for 4 Raccoon. - Status is Inpatient Admission. mv5 - Condition is Stable. - Problem is chronic. - Symptoms have improved. Historical: - Allergies: Unknown; - Home Meds: 1. amitriptyline 50 mg Oral tab 1 tab nightly 2. baclofen 20 mg Oral tab daily 3. Citalopram 30 mg Oral once daily 4. Fish Oil 1,000 mg Oral tab 5. hydrochlorothiazide 25 mg Oral tab 1 tab once daily 6. losartan 50 mg oral tab 1 tab once daily 7. 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 No barriers to communication noted, The patient speaks fluent [place], Speaks appropriately for age, Preferred Language: [place]. - Family history: No immediate family members are acutely ill. - : The pt / caregiver states he / she is not on anticoagulants. Home medication list is obtained from the patient. - Exposure Risk Screening:: None identified. Vital Signs: 12/11 00:21 BP 138 / 90; Pulse 100; Resp 22; Pulse Ox 95% on R/A; Weight 86.18 kg / 189.99 lbs (R); lf1 Height 5 ft. 10 in. (177.80 cm) (R); Pain 10/10; 01:09 BP 157 / 87 (auto/); mv5 01:10 Pulse 92 MON; Pulse Ox 95% ; mv5 01:39 BP 134 / 69 (auto/); mv5 01:46 Pulse 80 MON; Pulse Ox 94% ; mv5 02:09 BP 137 / 74 (auto/); mv5 02:10 Pulse 84 MON; Pulse Ox 95% ; mv5 02:39 BP 137 / 82 (auto/); mv5 02:40 Pulse 78 MON; Pulse Ox 95% ; mv5 03:09 BP 149 / 115 (auto/); mv5 03:10 Pulse 80 MON; Pulse Ox 96% ; mv5 03:39 BP 140 / 82 (auto/); mv5 03:40 Pulse 64 MON; Pulse Ox 96% ; mv5 04:09 BP 155 / 80 (auto/); mv5 04:10 Pulse 62 MON; Pulse Ox 96% ; mv5 04:39 BP 138 / 86 (auto/); mv5 04:39 Pulse 62 MON; Pulse Ox 97% ; mv5 04:43 BP 138 / 86; Pulse 62; Resp 18; Temp 97.7(TE); Pulse Ox 97% ; mv5 05:09 BP 164 / 85 (auto/); mv5 05:10 Pulse 62 MON; Pulse Ox 96% ; mv5 05:39 BP 145 / 92 (auto/); mv5 05:40 Pulse 60 MON; Pulse Ox 98% ; mv5 00:21 Body Mass Index 27.26 (86.18 kg, 177.80 cm) lf1 MDM: 00:15 ECG WITH READING ER PHYS+CARDIAG ordered. EDMS 00:39 CBC with Diff Ordered. EDMS 00:39 MED Profile Ordered. EDMS 00:39 Liver Profile Ordered. EDMS 00:39 Amylase Ordered. EDMS 00:39 Lipase Ordered. EDMS 00:52 CBC with Diff Reviewed. cs11 00:53 Banana Bag - (NS 0.9% 1000 ml, folic acid 1 mg, Thiamine 100 mg, Infuvite Adult 1 amp) cs11 IV at 1000 mL/hr bolus; *use both vials for Infuvite* ordered. 00:54 morphine 2 mg IVP once ordered. cs11 01:21 MED Profile Reviewed. cs11 01:21 Amylase Reviewed. cs11 01:21 Lipase Reviewed. cs11 01:21 Liver Profile Reviewed. cs11 01:23 CT ABD & PELVIS: IV Contrast Only Ordered. EDMS 01:24 BED REQUEST+ADM ordered. EDMS 01:47 Dilaudid - HYDROmorphone 0.5 mg IVP once ordered. cs11 02:47 Admission / Observation Status ordered. EDMS 02:48 NPO DIET ordered. EDMS 02:48 AMYLASE Ordered. EDMS 02:48 URINALYSIS Ordered. EDMS 03:11 Financial registration complete. hs2 03:17 Written Provider Order was scanned into [employer] and attached to record. jlm 03:35 [facility] Payment Agreement was scanned into [employer] and attached to record. hs2 03:52 Written Provider Order was scanned into [employer] and attached to record. jlm 03:54 Written Provider Order was scanned into [employer] and attached to record. jl Administered Medications: 01:06 Drug: Banana Bag - (NS 0.9% 1000 ml, folic acid 1 mg, Thiamine 100 mg, Infuvite Adult 1 mv5 amp) Route: IV; Rate: 1000 mL/hr; Site: left forearm; 05:35 Follow up: IV Status: Completed infusion mv5 01:06 Drug: morphine 2 mg [morphine 2 mg/mL intravenous cartridge (1 mL)] Route: IVP; Site: mv5 left forearm; 01:31 Follow up: Response: Pain is decreased mv5 01:54 Drug: Dilaudid - HYDROmorphone 0.5 mg [hydromorphone 1 mg/mL injection syringe (0.5 mv5 mL)] Route: IVP; Site: left forearm; 02:26 Follow up: Response: No Adverse Reaction mv5 Signatures: Dispatcher [employer] EDMS Brynn Zacarias,RN RN lf1 Gerry He, DO DO cs11 Aixa Jane, [facility] jlm Jade Lazo, Reg Reg hs2 Antonina Yanez,JENIFFER RN mv5 The chart was reviewed and I authenticate all verbal orders and agree with the evaluation and treatment provided.Attachments: 03:17 Written Provider Order jl 03:35 [facility] Payment Agreement hs2 03:54 Written Provider Order jl MTDD
--- NOTE | 2016-12-11 06:10 | EDDOCDS ---
Nurse's Notes [facility] Name: Joao Brenner Age: 56 yrs Sex: Male : 1960 Arrival Date: 12/11/2016 Time: 00:07 Bed 11 Private MD: Diagnosis: Alcohol-induced chronic pancreatitis Presentation: 12/11 00:14 Presenting complaint: Patient states: Chest pain and abdominal pain that began two days lf1 ago and is currently 10/10 described as constant sharp pain. Pt. reports nausea and dry heaving. pt reports that he has been seen multiple times for pancreatitis and this feels similar. Aspirin was not taken prior to arrival. Adult Sepsis Screening: The patient does not have new or worsening altered mentation. Patient's respiratory rate is less than 22. Systolic blood pressure is greater than 100. Patient has a qSOFA score of 0- Negative Sepsis Screen. Suicide/Homicide risk assessment- the patient denies having any suicidal and/or homicidal ideations and does not present with any other emotional, behavioral or mental health complaints. Status: Patient is not a customer services coordinator or dependent. Transition of care: patient was not received from another setting of care. 00:14 Acuity: TAPAN Level 3 lf1 00:14 Method Of Arrival: Walkin/Carried/Asstd lf1 00:14 Red Flag criteria, patient assessed and taken directly to a bed. Chest pain/abdominal lf1 pain ongoing for two days. Primary nurse at bedside. EKG ordered. Triage Assessment: 06:08 Pt Declines HIV testing. Cardiovascular: Chest pain episodes. Cardiovascular: Chest mv5 pain is denied is described as quality is radiates began. Historical: - Allergies: Unknown; - Home Meds: 1. amitriptyline 50 mg Oral tab 1 tab nightly 2. baclofen 20 mg Oral tab daily 3. Citalopram 30 mg Oral once daily 4. Fish Oil 1,000 mg Oral tab 5. hydrochlorothiazide 25 mg Oral tab 1 tab once daily 6. losartan 50 mg oral tab 1 tab once daily 7. 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 No barriers to communication noted, The patient speaks fluent Chadian, Speaks appropriately for age, Preferred Language: Chadian. - Family history: No immediate family members are acutely ill. - : The pt / caregiver states he / she is not on anticoagulants. Home medication list is obtained from the patient. - Exposure Risk Screening:: None identified. Screenin:22 Screening information is obtained from the patient. Fall risk: No risks identified. lf1 Assistance ADL's: requires no assistance with activities of daily living. Abuse/DV Screen: The patient / caregiver reports he/she is: not in a situation that causes fear, pain or injury. Nutritional screening: On bland/soft diet. Advance Directives: Currently, there is a health care proxy, Yoon Brenner (). home support is adequate. Assessment: 00:32 General: Appears uncomfortable, Behavior is cooperative, pleasant. Pain: Location: mv5 right upper quadrant and left upper quadrant Pain currently is 7 out of 10 on a pain scale. Neurological: Level of Consciousness is awake, alert, Oriented to person, place, time, Moves all extremities. Cardiovascular: Rhythm is sinus rhythm No ectopy. Respiratory: Airway is patent Respiratory effort is even, unlabored, Respiratory pattern is regular, symmetrical, Breath sounds are clear bilaterally. Derm: Skin is pink, warm & dry. 01:15 General: Appears uncomfortable, Behavior is cooperative, pleasant, Meds given as mv5 ordered.. Neurological: Level of Consciousness is awake, alert. Cardiovascular: Capillary refill < 3 seconds Rhythm is sinus rhythm No ectopy. Respiratory: No deficits noted. Derm: Skin is pink, warm & dry. 01:33 General: Pt resting with eyes closed.. mv5 02:25 General: Appears in no apparent distress. Respiratory: Airway is patent Respiratory mv5 effort is even, unlabored, Respiratory pattern is regular, symmetrical. Derm: Skin is pink, warm & dry. 04:04 General: Appears in no apparent distress. Cardiovascular: Rhythm is sinus rhythm No mv5 ectopy. Respiratory: Airway is patent Respiratory effort is even, unlabored, Respiratory pattern is regular, symmetrical. Derm: Skin is pink, warm & dry. 05:12 General: Appears uncomfortable, Pt again medicated as ordered for pain. Awaiting mv5 transfer to inpatient room. SBAR sent.. Neurological: Level of Consciousness is awake, alert, Oriented to person, place, time, Moves all extremities. 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 Respiratory: Airway is patent Respiratory effort is even, unlabored, Respiratory pattern is regular, symmetrical. Derm: Skin is pink, warm & dry. 06:05 General: Appears in no apparent distress. mv5 Vital Signs: 00:21 BP 138 / 90; Pulse 100; Resp 22; Pulse Ox 95% on R/A; Weight 86.18 kg (R); Height 5 ft. lf1 10 in. (177.80 cm) (R); Pain 10/10; 01:09 BP 157 / 87 (auto/); mv5 01:10 Pulse 92 MON; Pulse Ox 95% ; mv5 01:39 BP 134 / 69 (auto/); mv5 01:46 Pulse 80 MON; Pulse Ox 94% ; mv5 02:09 BP 137 / 74 (auto/); mv5 02:10 Pulse 84 MON; Pulse Ox 95% ; mv5 02:39 BP 137 / 82 (auto/); mv5 02:40 Pulse 78 MON; Pulse Ox 95% ; mv5 03:09 BP 149 / 115 (auto/); mv5 03:10 Pulse 80 MON; Pulse Ox 96% ; mv5 03:39 BP 140 / 82 (auto/); mv5 03:40 Pulse 64 MON; Pulse Ox 96% ; mv5 04:09 BP 155 / 80 (auto/); mv5 04:10 Pulse 62 MON; Pulse Ox 96% ; mv5 04:39 BP 138 / 86 (auto/); mv5 04:39 Pulse 62 MON; Pulse Ox 97% ; mv5 04:43 BP 138 / 86; Pulse 62; Resp 18; Temp 97.7(TE); Pulse Ox 97% ; mv5 05:09 BP 164 / 85 (auto/); mv5 05:10 Pulse 62 MON; Pulse Ox 96% ; mv5 05:39 BP 145 / 92 (auto/); mv5 05:40 Pulse 60 MON; Pulse Ox 98% ; mv5 00:21 Body Mass Index 27.26 (86.18 kg, 177.80 cm) 1 Vitals: 00:21 Log In Time: December 11, 2016 at 00:15. lf1 ED Course: 00:09 Patient visited by Jade Lazo, Reg. hs2 00:09 Patient moved to Waiting hs2 00:10 Patient moved to 8 hs2 00:11 Antonina Yanez,JENIFFER is Primary Nurse. tmm1 00:11 Patient moved to 11 tmm1 00:19 Triage Initiated lf1 00:22 The patient / caregiver is instructed regarding the plan of care and ED course. Cardiac lf1 monitor on. Pulse ox on. NIBP on. 00:23 Patient visited by Brynn Zacarias RN. lf1 00:29 Patient visited by Chantel Hughes PCA. kylee 00:29 EKG done. (by ED staff). Reviewed by Gerry He DO. kylee 00:32 Inserted saline lock: 20 gauge in left forearm and blood collected. The patient mv5 tolerated the procedure well. 00:37 Gerry He DO is Attending Physician. cs11 00:37 Patient visited by Gerry He DO. cs11 01:07 Patient visited by Antonina Yanez RN. mv5 01:55 Patient visited by Antonina Yanez RN. mv5 02:25 Patient visited by Antonina Yanez RN. mv5 02:39 CT ABD & PELVIS: IV Contrast Only Returned. EDMS 02:45 Jonelle Springer is Hospitalizing Provider. cs11 03:17 Written Provider Order was scanned into [employer] and attached to record. jlm 03:35 PENDING SALE TO [facility] Payment Agreement was scanned into [employer] and attached to record. hs2 03:52 Written Provider Order was scanned into [employer] and attached to record. jlm 03:54 Written Provider Order was scanned into [employer] and attached to record. jlm 04:43 Patient visited by Janene Calle PCA. cln 05:40 No procedures done that require assistance. mv5 05:40 Inserted saline lock: 20 gauge in right forearm The patient tolerated the procedure mv5 well. Administered Medications: 01:06 Drug: Banana Bag - (NS 0.9% 1000 ml, folic acid 1 mg, Thiamine 100 mg, Infuvite Adult 1 mv5 amp) Route: IV; Rate: 1000 mL/hr; Site: left forearm; 05:35 Follow up: IV Status: Completed infusion mv5 01:06 Drug: morphine 2 mg [morphine 2 mg/mL intravenous cartridge (1 mL)] Route: IVP; Site: mv5 left forearm; 01:31 Follow up: Response: Pain is decreased mv5 01:54 Drug: Dilaudid - HYDROmorphone 0.5 mg [hydromorphone 1 mg/mL injection syringe (0.5 mv5 mL)] Route: IVP; Site: left forearm; 02:26 Follow up: Response: No Adverse Reaction mv5 Order Results: Lab Order: CBC with Diff; SPEC'M 12/11/16 00:26 Test: WHITE BLOOD COUNT; Value: 5.0; Range: 4.0-10.0; Units: K/mm3; Status: F Test: RED BLOOD COUNT; Value: 3.97; Range: 4.30-6.10; Abnormal: Below low normal; Units: M/mm3; Status: F Test: HEMOGLOBIN; Value: 12.6; Range: 14.0-18.0; Abnormal: Below low normal; Units: g/dl; Status: F Test: HEMATOCRIT; Value: 37.3; Range: 42.0-52.0; Abnormal: Below low normal; Units: %; Status: F Test: MEAN CORPUSCULAR VOLUME; Value: 93.9; Range: 80.0-96.0; Units: fl; Status: F Test: MEAN CORPUSCULAR HEMOGLOBIN; Value: 31.6; Range: 27.0-33.0; Units: pg; Status: F Test: MEAN CORPUSCULAR HGB CONC; Value: 33.7; Range: 32.0-36.5; Units: g/dl; Status: F Test: RED CELL DISTRIBUTION WIDTH; Value: 12.3; Range: 11.5-14.5; Units: %; Status: F Test: PLATELET COUNT, AUTOMATED; Value: 309; Range: 150-450; Units: k/mm3; Status: F Test: NEUTROPHILS %; Value: 56.1; Range: 36.0-66.0; Units: %; Status: F Test: LYMPH %; Value: 27.5; Range: 24.0-44.0; Units: %; Status: F Test: MONO %; Value: 7.5; Range: 0.0-5.0; Abnormal: Above high normal; Units: %; Status: F Test: EOS %; Value: 6.2; Range: 0.0-3.0; Abnormal: Above high normal; Units: %; Status: F Test: BASO %; Value: 0.5; Range: 0.0-1.0; Units: %; Status: F Test: LARGE UNSTAINED CELL %; Value: 2.3; Range: 0.0-4.0; Units: %; Status: F Test: NEUTROPHILS #; Value: 2.8; Range: 1.8-7.7; Units: K/mm3; Status: F Test: LYMPH #; Value: 1.4; Range: 1.5-4.5; Abnormal: Below low normal; Units: K/mm3; Status: F Test: MONO #; Value: 0.4; Range: 0.0-0.8; Units: K/mm3; Status: F Test: EOS #; Value: 0.3; Range: 0.0-0.50; Units: K/mm3; Status: F Test: BASO #; Value: 0.0; Range: 0.0-0.2; Units: K/mm3; Status: F Test: LARGE UNSTAINED CELL #; Value: 0.1; Range: 0.0-0.4; Units: K/mm3; Status: F Lab Order: [facility]; [facility] 12/11/16 00:26 Test: GLUCOSE, FASTING; Value: 159; Range: 70-105; Abnormal: Above high normal; Units: MG/DL; Status: F Test: BLOOD UREA NITROGEN; Value: 12; Range: 7-18; Units: MG/DL; Status: F Test: CREATININE FOR GFR; Value: 0.85; Range: 0.70-1.30; Units: MG/DL; Status: F Test: GLOMERULAR FILTRATION RATE; Value: > 60.0; Range: >56; Status: F Test: SODIUM LEVEL; Value: 142; Range: 136-145; Units: MEQ/L; Status: F Test: POTASSIUM SERUM; Value: 3.6; Range: 3.5-5.1; Units: MEQ/L; Status: F Test: CHLORIDE LEVEL; Value: 105; Range: 98-107; Units: MEQ/L; Status: F Test: CARBON DIOXIDE LEVEL; Value: 26; Range: 21-32; Units: MEQ/L; Status: F Test: ANION GAP; Value: 11; Range: 8-16; Units: MEQ/L; Status: F Test: CALCIUM LEVEL; Value: 8.4; Range: 8.5-10.1; Abnormal: Below low normal; Units: MG/DL; Status: F Test Note: ; Units are mL/min/1.73 m2 Chronic Kidney Disease Staging per NKF: Stage I & II GFR >=60 Normal to Mildly Decreased Stage III GFR 30-59 Moderately Decreased Stage IV GFR 15-29 Severely Decreased Stage V GFR <15 Very Little GFR Left ESRD GFR <15 on 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 ROCK APPLICATOR Lab Order: Liver Profile; 12/11/16 00:26 Test: AST/SGOT; Value: 16; Range: 15-37; Units: U/L; Status: F Test: ALT/SGPT; Value: 19; Range: 12-78; Units: U/L; Status: F Test: ALKALINE PHOSPHATASE; Value: 94; Range: 45-117; Units: U/L; Status: F Test: BILIRUBIN,TOTAL; Value: 0.5; Range: 0.2-1.0; Units: MG/DL; Status: F Test: BILIRUBIN,DIRECT; Value: 0.1; Range: 0.0-0.2; Units: MG/DL; Status: F Test: TOTAL PROTEIN; Value: 6.5; Range: 6.4-8.2; Units: GM/DL; Status: F Test: ALBUMIN; Value: 3.5; Range: 3.2-5.2; Units: GM/DL; Status: F Test: ALBUMIN/GLOBULIN RATIO; Value: 1.17; Range: 1.00-1.93; Status: F Lab Order: Amylase; 12/11/16 00:26 Test: AMYLASE; Value: 594; Range: 25-115; Abnormal: Above high normal; Units: U/L; Status: F Lab Order: Lipase; 12/11/16 00:26 Test: LIPASE; Value: 7940; Range: 73-393; Abnormal: Above high normal; Units: U/L; Status: F Lab Order: AMYLASE; 12/11/16 02:58 Test: AMYLASE; Value: 427; Range: 25-115; Abnormal: Above high normal; Units: U/L; Status: F Radiology Order: CT ABD & PELVIS: IV Contrast Only Test: CT ABD & PELVIS: IV Contrast Only REASON FOR EXAMINATION: pancreatitis; ; CLINICAL HISTORY: Abdominal pain.; TECHNIQUE: Multiple axial, sagittal and coronal CT images were obtained through the abdomen and pelvi; s after administration of intravenous contrast material.; COMMENTS:; Enlargement, hypodensity of the pancreatic head. Significant surrounding fat stranding. Mildly dilate; d fluid filled duodenum.; The liver is mildly enlarged with decreased attenuation without mass or defect.; There is no intra or extrahepatic biliary ductal dilatation.; The spleen is normal.; The gallbladder is surgically absent. The pancreas is of normal contour and attenuation characteristi; cs. There is no evidence of adrenal mass.; Both kidneys demonstrate prompt and equal nephrograms. The kidneys are normal in size, shape and conf; iguration. There is no evidence of renal or ureteral mass. No renal or ureteral calculi are identifie; d. There is no hydroureter or hydronephrosis.; No evidence for appendicitis. There is no bowel wall thickening. No evidence for small or large ada; l obstruction. There is no evidence of abdominal ascites or lymphadenopathy.; There is no evidence of intrinsic or extrinsic bladder mass. There is no pelvic ascites or lymphadeno; zenia. Mild prostatomegaly.; Images of the lung bases show no evidence of pleural or parenchymal mass. There are no pleural effusi; ons. Bilateral basilar atelectatic pulmonary changes.; The bony structures are free of lytic or blastic lesions. Multilevel degenerative changes are seen in; volving the thoracolumbar spine. Scattered calcifications are seen involving the aorta and major bran; ches compatible with atherosclerosis.; IMPRESSION:; Acute pancreatitis.; Ileus.; Hepatomegaly with fatty liver infiltration.; Thank you for your kind referral of this patient.; ; Outcome: 01:31 Discharge ordered by Provider. cs11 02:46 Decision to Hospitalize by Provider. cs11 05:40 Discharge Assessment: Patient awake, alert and oriented x 3. No cognitive and/or mv5 functional deficits noted. Patient verbalized understanding of disposition instructions. patient administered narcotics - yes. Patient was admitted to the hospital or transferred to another facility. The following High Risk Discharge criteria are identified: None. Admitted to Med/Surg accompanied by tech, via stretcher, with chart. Condition: stable. CT Study completed. Admission hand-off: Report called to Pooja Fleming RN. Property :Personal belongings accompany Pt. 06:10 Patient left the ED. mv5 Signatures: Dispatcher [employer] EDBrynn ChicasRN RN lf1 Chantel Hughes, NAIL MAKING MACHINE SETTER NAIL MAKING MACHINE SETTER kylee Gerry He, DO DO cs11 Gema Gould, NAIL MAKING MACHINE SETTER NAIL MAKING MACHINE SETTER tmm1 Aixa Jane, Research Professional Unit jlm Jade Lazo, Reg Reg hs2 Janene Calle, NAIL MAKING MACHINE SETTER NAIL MAKING MACHINE SETTER Antonina Weber,RN RN mv5 Corrections: (The following items were deleted from the chart) 04:48 04:43 Temp 97.7F Temporal; cln mv5 MTDD
[2016-12-11 06:15] VITALS: BP 158/99
[2016-12-11] MEDS: KCL 20MEQ IN D5/NS 1000ML 1,000 ML IV SCH ×7 (06:27→23:30)
--- NOTE | 2016-12-11 07:53 | ECGEPIP ---
Stationary ECG Study [facility] - ED Test Date: 2016-12-11 Pat Name: ANA CORNEJO Department: Room: [place] [address] Gender: M Insurance Follow Up Specialist: juvenal : 1960 Requested By: MARLEN SIMS Order Number: [id number] Reading MD: Jayla Flowers Measurements Intervals [place] Rate: 98 P: 29 PA: 155 QRS: 9 QRSD: 90 T: 7 QT: 334 QTc: 427 Interpretive Statements SINUS RHYTHM NONSPECIFIC T-WAVE ABNORMALITY SIMILAR 11/24/16 Electronically Signed On 12-11-2016 7:53:02 EST by Jayla Flowers
[2016-12-11] MEDS ORDERED: CREON-24 CAPSULE PO SCH (08:00)
[2016-12-11 09:00] VITALS: BP 158/99
[2016-12-11] MEDS: LOSARTAN 50 MG TAB PO SCH (09:13)
[2016-12-11] MEDS: FOLIC ACID 1 MG TAB PO SCH (09:13)
[2016-12-11] MEDS: CitaloPRAM (CeleXA) 20 MG TAB PO SCH (09:13)
[2016-12-11] MEDS: MULTIVITAMINS/MINERALS THERAP 1 TAB PO SCH (09:13)
[2016-12-11] MEDS: OMEGA-3 1050MG CAPSULE PO SCH (09:13)
[2016-12-11] MEDS: THIAMINE 100 MG TAB PO SCH (09:13)
[2016-12-11] MEDS: ENOXAPARIN 40 MG/0.4 ML SYRINGE (J1650) SC SCH (09:14)
[2016-12-11] MEDS: ONDANSETRON 4MG/2ML VIAL (J2405) IV PRN ×2 (12:59→20:12)
[2016-12-11] MEDS: KETOROLAC 30 MG/ML VIAL (J1885) IV PRN (13:53)
[2016-12-11] MEDS: PERCOCET 5MG/325MG TAB PO PRN ×2 (13:54→20:13)
[2016-12-11 14:00] VITALS: BP 158/86
[2016-12-11] MEDS: MORPHINE 2 MG/ML 1ML SYRINGE IV PRN (15:54)
--- NOTE | 2016-12-11 16:08 | REP ---
MRCP examination: History: Recurrent pancreatitis. Upper abdominal pain. MR technique: Axial and coronal T2-weighted true FISP and T2 haste imaging sequences are acquired. MRCP acquisition is performed and maximal intensity projection images from the 3-D T2-weighted MRCP sequence are generated and viewed rotational about the vertical axis. Source coronal images are reviewed as well. MRCP findings: No focal hepatic or splenic lesion is seen. The gallbladder is surgically absent. There are parenchymal fibrotic or atelectatic changes in the lung bases bilaterally. There is some peripancreatic stranding visible about the pancreatic head and duodenum. The common bile duct and common hepatic duct are not dilated measuring 5-6 mm in greatest diameter. The intrahepatic bile ducts are not dilated. The main pancreatic duct appears normal in caliber as well. Impression: No evidence of pancreatic or biliary ductal dilation or anomaly. Signed by Nate Hoffmann MD 12/11/2016 04:32 P
[2016-12-11 17:00] VITALS: BP 145/78
[2016-12-11] MEDS: AMITRIPTYLINE 50 MG TAB PO SCH (20:12)
[2016-12-11] MEDS: SENOKOT S TAB PO PRN (21:03)
[2016-12-11 21:04] VITALS: BP 158/88
[2016-12-11 22:00] VITALS: BP 158/88
[2016-12-12] MEDS: KETOROLAC 30 MG/ML VIAL (J1885) IV PRN ×3 (01:23→16:10)
[2016-12-12] MEDS: KCL 20MEQ IN D5/NS 1000ML 1,000 ML IV SCH ×4 (03:23→16:27)
[2016-12-12] MEDS: PERCOCET 5MG/325MG TAB PO PRN ×3 (03:25→19:23)
[2016-12-12] MEDS: ONDANSETRON 4MG/2ML VIAL (J2405) IV PRN ×2 (03:34→16:27)
[2016-12-12] MEDS: MORPHINE 2 MG/ML 1ML SYRINGE IV PRN ×3 (04:57→22:07)
[2016-12-12 05:00] VITALS: BP 132/79
[2016-12-12 06:00] VITALS: BP 132/79
[2016-12-12 07:24] LABS: BASO % 0.2 % (0.0-1.0); EOS # 0.3 K/mm3 (0.0-0.50); EOS % 6.2 % (0.0-3.0); LARGE UNSTAINED CELL # 0.1 K/mm3 (0.0-0.4); LYMPH % 18.4 % (24.0-44.0); MEAN CORPUSCULAR HEMOGLOBIN 31.3 pg (27.0-33.0); MEAN CORPUSCULAR HGB CONC 32.1 g/dl (32.0-36.5); MEAN CORPUSCULAR VOLUME 97.4 fl (80.0-96.0); MONO # 0.4 K/mm3 (0.0-0.8); MONO % 6.9 % (0.0-5.0); NEUTROPHILS # 3.4 K/mm3 (1.8-7.7); NEUTROPHILS % 66.4 % (36.0-66.0); PLATELET COUNT, AUTOMATED 241 k/mm3 (150-450); RED CELL DISTRIBUTION WIDTH 12.1 % (11.5-14.5); WHITE BLOOD COUNT 5.2 K/mm3 (4.0-10.0)
[2016-12-12 07:41] LABS: ALBUMIN 2.6 GM/DL (3.2-5.2); ALBUMIN/GLOBULIN RATIO 0.79 (1.00-1.93); ALKALINE PHOSPHATASE 90 U/L (45-117); ALT/SGPT 16 U/L (12-78); ANION GAP 6 MEQ/L (8-16); AST/SGOT 14 U/L (15-37); BILIRUBIN,TOTAL 0.4 MG/DL (0.2-1.0); BLOOD UREA NITROGEN 3 MG/DL (7-18); CALCIUM LEVEL 7.3 MG/DL (8.5-10.1); CARBON DIOXIDE LEVEL 25 MEQ/L (21-32); CHLORIDE LEVEL 110 MEQ/L (98-107); CREATININE FOR GFR 0.75 MG/DL (0.70-1.30); GLOMERULAR FILTRATION RATE > 60.0 (>56); GLUCOSE, FASTING 105 MG/DL (70-105); POTASSIUM SERUM 4.1 MEQ/L (3.5-5.1); SODIUM LEVEL 141 MEQ/L (136-145); TOTAL PROTEIN 5.9 GM/DL (6.4-8.2); TRIGLYCERIDES LEVEL 102 MG/DL (<150)
[2016-12-12] MEDS: FOLIC ACID 1 MG TAB PO SCH (08:14)
[2016-12-12] MEDS: CitaloPRAM (CeleXA) 20 MG TAB PO SCH (08:14)
[2016-12-12] MEDS: SENOKOT S TAB PO PRN (08:14)
[2016-12-12] MEDS: LOSARTAN 50 MG TAB PO SCH (08:17)
[2016-12-12] MEDS: ENOXAPARIN 40 MG/0.4 ML SYRINGE (J1650) SC SCH (08:18)
[2016-12-12] MEDS: OMEGA-3 1050MG CAPSULE PO SCH (08:18)
[2016-12-12] MEDS: THIAMINE 100 MG TAB PO SCH (08:18)
[2016-12-12] MEDS: MULTIVITAMINS/MINERALS THERAP 1 TAB PO SCH (08:18)
[2016-12-12 09:00] VITALS: BP 132/79
[2016-12-12 14:00] VITALS: BP 166/86
[2016-12-12] MEDS ORDERED: MIRALAX *UNIT DOSE* 17GM PACKET PO PRN (16:15)
[2016-12-12] MEDS ORDERED: FLEET ENEMA PR PRN (16:30)
--- NOTE | 2016-12-12 16:54 | IPN ---
DATE: 12/12/2016 SUBJECTIVE: Patient seen and examined in the room today. Patient still complains about abdominal pain, worsened with palpation, mainly toward right upper abdomen. The patient feels he is very frustrated with the frequent acute flares of his pancreatitis. He has been trying a liquid diet for a long duration after discharge from the last hospitalization; however, he feels frustrated with the severity and frequency for those multiple acute flares. OBJECTIVE: VITAL SIGNS: Temperature is 96.5, pulse is 64, respirations 18, temperature is 132/79, pulse oximetry is 96% in room air. GENERAL: Anxious, mild to moderate distress secondary to abdominal pain. Alert and oriented times three. HEENT: Normocephalic, atraumatic. Extraocular motor grossly intact. CARDIOVASCULAR: Positive S1, S2, regular rate. LUNGS: Clear to auscultation bilaterally. ABDOMEN: Tenderness to palpation, mainly in the upper abdomen toward the right side. Abdomen soft. No rebound. No guarding. Bowel sounds present. EXTREMITIES: No edema. No sign of cyanosis. LABORATORY DATA: WBC is 5.3, hemoglobin 10.6, hematocrit 33.1, platelet count is 241. Sodium is 141, potassium is 4.1, chloride is 100, carbon dioxide 23, BUN 3, creatinine is 0.75, GFR is greater than 60, fasting glucose is 105, calcium is 7.3. Total bilirubin is 0.4, AST is 14, ALT is 16, alkaline phosphatase 90. C-reactive protein is 8.7, total protein is 5.9, albumin is 2.6. Triglycerides 102, lipase is 789. ASSESSMENT AND PLAN: 1. Acute flare of chronic pancreatitis. Patient remains nothing by mouth. Continue the intravenous (IV) fluids. Continue with the pain management. I discussed the case with the patient's barrel planer, Dr. Greene. He recommends continuing with current medical management, and patient will follow with him in the outpatient setting once current flare is resolved. 2. History of alcohol abuse. Patient is on multivitamin, thiamine, folic acid, and IV fluid. 3. Depression. 4. Hypertension. 5. History of diverticulosis. 6. Hyperlipidemia. Lipid panel was ordered. Patient does not have an elevated triglyceride level. 7. Deep vein thrombosis (DVT) prophylaxis. Patient is on Lovenox.
[2016-12-12] MEDS: AMITRIPTYLINE 50 MG TAB PO SCH (20:09)
[2016-12-12 21:00] VITALS: BP 162/78
[2016-12-12 22:00] VITALS: BP 162/78
[2016-12-13] MEDS: KETOROLAC 30 MG/ML VIAL (J1885) IV PRN ×2 (01:15→09:27)
[2016-12-13] MEDS: KCL 20MEQ IN D5/NS 1000ML 1,000 ML IV SCH ×3 (01:15→23:26)
[2016-12-13] MEDS: ONDANSETRON 4MG/2ML VIAL (J2405) IV PRN (01:36)
[2016-12-13] MEDS: PERCOCET 5MG/325MG TAB PO PRN ×3 (01:39→16:03)
[2016-12-13] MEDS: MORPHINE 2 MG/ML 1ML SYRINGE IV PRN ×3 (05:57→20:00)
[2016-12-13 06:00] VITALS: BP 140/79
[2016-12-13 06:41] LABS: BASO % 0.5 % (0.0-1.0); EOS # 0.3 K/mm3 (0.0-0.50); LARGE UNSTAINED CELL # 0.1 K/mm3 (0.0-0.4); LARGE UNSTAINED CELL % 1.7 % (0.0-4.0); LYMPH # 0.9 K/mm3 (1.5-4.5); LYMPH % 24.2 % (24.0-44.0); MEAN CORPUSCULAR HGB CONC 32.8 g/dl (32.0-36.5); MEAN CORPUSCULAR VOLUME 94.7 fl (80.0-96.0); MONO # 0.3 K/mm3 (0.0-0.8); MONO % 7.8 % (0.0-5.0); NEUTROPHILS % 57.8 % (36.0-66.0); PLATELET COUNT, AUTOMATED 201 k/mm3 (150-450); RED CELL DISTRIBUTION WIDTH 11.9 % (11.5-14.5); WHITE BLOOD COUNT 3.5 K/mm3 (4.0-10.0)
[2016-12-13 06:57] LABS: ALBUMIN 2.4 GM/DL (3.2-5.2); ALBUMIN/GLOBULIN RATIO 0.69 (1.00-1.93); ALKALINE PHOSPHATASE 87 U/L (45-117); ALT/SGPT 17 U/L (12-78); ANION GAP 5 MEQ/L (8-16); AST/SGOT 15 U/L (15-37); BILIRUBIN,TOTAL 0.4 MG/DL (0.2-1.0); BLOOD UREA NITROGEN 3 MG/DL (7-18); CALCIUM LEVEL 7.6 MG/DL (8.5-10.1); CARBON DIOXIDE LEVEL 26 MEQ/L (21-32); CHLORIDE LEVEL 111 MEQ/L (98-107); CREATININE FOR GFR 0.78 MG/DL (0.70-1.30); GLOMERULAR FILTRATION RATE > 60.0 (>56); GLUCOSE, FASTING 102 MG/DL (70-105); POTASSIUM SERUM 3.9 MEQ/L (3.5-5.1); SODIUM LEVEL 142 MEQ/L (136-145); TOTAL PROTEIN 5.9 GM/DL (6.4-8.2)
--- NOTE | 2016-12-13 07:11 | EDDOCDS ---
Physician Documentation [facility] Name: Joao Brenner Age: 56 yrs Sex: Male : 1960 Arrival Date: 12/11/2016 Time: 00:07 Bed 11 Private MD: Disposition: 12/11/16 02:46 Hospitalization ordered by Jonelle Springer for Inpatient Admission. 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 - Bed requested for 4 [place]. - Status is Inpatient Admission. mv5 - Condition is Stable. - Problem is chronic. - Symptoms have improved. Historical: - Allergies: Unknown; - Home Meds: 1. amitriptyline 50 mg Oral tab 1 tab nightly 2. baclofen 20 mg Oral tab daily 3. Citalopram 30 mg Oral once daily 4. Fish Oil 1,000 mg Oral tab 5. hydrochlorothiazide 25 mg Oral tab 1 tab once daily 6. losartan 50 mg oral tab 1 tab once daily 7. 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 No barriers to communication noted, The patient speaks fluent Armenian, Speaks appropriately for age, Preferred Language: Armenian. - Family history: No immediate family members are acutely ill. - : The pt / caregiver states he / she is not on anticoagulants. Home medication list is obtained from the patient. - Exposure Risk Screening:: None identified. Vital Signs: 12/11 00:21 BP 138 / 90; Pulse 100; Resp 22; Pulse Ox 95% on R/A; Weight 86.18 kg / 189.99 lbs (R); lf1 Height 5 ft. 10 in. (177.80 cm) (R); Pain 10/10; 01:09 BP 157 / 87 (auto/); mv5 01:10 Pulse 92 MON; Pulse Ox 95% ; mv5 01:39 BP 134 / 69 (auto/); mv5 01:46 Pulse 80 MON; Pulse Ox 94% ; mv5 02:09 BP 137 / 74 (auto/); mv5 02:10 Pulse 84 MON; Pulse Ox 95% ; mv5 02:39 BP 137 / 82 (auto/); mv5 02:40 Pulse 78 MON; Pulse Ox 95% ; mv5 03:09 BP 149 / 115 (auto/); mv5 03:10 Pulse 80 MON; Pulse Ox 96% ; mv5 03:39 BP 140 / 82 (auto/); mv5 03:40 Pulse 64 MON; Pulse Ox 96% ; mv5 04:09 BP 155 / 80 (auto/); mv5 04:10 Pulse 62 MON; Pulse Ox 96% ; mv5 04:39 BP 138 / 86 (auto/); mv5 04:39 Pulse 62 MON; Pulse Ox 97% ; mv5 04:43 BP 138 / 86; Pulse 62; Resp 18; Temp 97.7(TE); Pulse Ox 97% ; mv5 05:09 BP 164 / 85 (auto/); mv5 05:10 Pulse 62 MON; Pulse Ox 96% ; mv5 05:39 BP 145 / 92 (auto/); mv5 05:40 Pulse 60 MON; Pulse Ox 98% ; mv5 00:21 Body Mass Index 27.26 (86.18 kg, 177.80 cm) lf1 MDM: 00:15 ECG WITH READING ER PHYS+CARDIAG ordered. EDMS 00:39 CBC with Diff Ordered. EDMS 00:39 MED Profile Ordered. EDMS 00:39 Liver Profile Ordered. EDMS 00:39 Amylase Ordered. EDMS 00:39 Lipase Ordered. EDMS 00:52 CBC with Diff Reviewed. cs11 00:53 Banana Bag - (NS 0.9% 1000 ml, folic acid 1 mg, Thiamine 100 mg, Infuvite Adult 1 amp) cs11 IV at 1000 mL/hr bolus; *use both vials for Infuvite* ordered. 00:54 morphine 2 mg IVP once ordered. cs11 01:21 MED Profile Reviewed. cs11 01:21 Amylase Reviewed. cs11 01:21 Lipase Reviewed. cs11 01:21 Liver Profile Reviewed. cs11 01:23 CT ABD & PELVIS: IV Contrast Only Ordered. EDMS 01:24 BED REQUEST+ADM ordered. EDMS 01:47 Dilaudid - HYDROmorphone 0.5 mg IVP once ordered. cs11 02:47 Admission / Observation Status ordered. EDMS 02:48 NPO DIET ordered. EDMS 02:48 AMYLASE Ordered. EDMS 02:48 URINALYSIS Ordered. EDMS 03:11 Financial registration complete. hs2 03:17 Written Provider Order was scanned into [employer] and attached to record. jlm 03:35 [facility] [place] Payment Agreement was scanned into [employer] and attached to record. hs2 03:52 Written Provider Order was scanned into [employer] and attached to record. jlm 03:54 Written Provider Order was scanned into [employer] and attached to record. jl Administered Medications: 01:06 Drug: Banana Bag - (NS 0.9% 1000 ml, folic acid 1 mg, Thiamine 100 mg, Infuvite Adult 1 mv5 amp) Route: IV; Rate: 1000 mL/hr; Site: left forearm; 05:35 Follow up: IV Status: Completed infusion mv5 01:06 Drug: morphine 2 mg [morphine 2 mg/mL intravenous cartridge (1 mL)] Route: IVP; Site: mv5 left forearm; 01:31 Follow up: Response: Pain is decreased mv5 01:54 Drug: Dilaudid - HYDROmorphone 0.5 mg [hydromorphone 1 mg/mL injection syringe (0.5 mv5 mL)] Route: IVP; Site: left forearm; 02:26 Follow up: Response: No Adverse Reaction mv5 Signatures: Dispatcher [employer] EDMS Brynn Zacarias,RN RN lf1 Gerry He, DO DO cs11 Aixa Jane, Bodily Injury Adjuster Unit jlm Jade Lazo, Reg Reg hs2 Antonina Yanez,RN RN mv5 The chart was reviewed and I authenticate all verbal orders and agree with the evaluation and treatment provided.Attachments: 03:17 Written Provider Order jl 03:35 [facility] Payment Agreement hs2 03:54 Written Provider Order jl Chart Complete MTDD
--- NOTE | 2016-12-13 07:11 | EDDOCDS ---
Nurse's Notes [facility] Name: Joao Brenner Age: 56 yrs Sex: Male : 1960 Arrival Date: 12/11/2016 Time: 00:07 Bed 11 Private MD: Diagnosis: Alcohol-induced chronic pancreatitis Presentation: 12/11 00:14 Presenting complaint: Patient states: Chest pain and abdominal pain that began two days lf1 ago and is currently 10/10 described as constant sharp pain. Pt. reports nausea and dry heaving. pt reports that he has been seen multiple times for pancreatitis and this feels similar. Aspirin was not taken prior to arrival. Adult Sepsis Screening: The patient does not have new or worsening altered mentation. Patient's respiratory rate is less than 22. Systolic blood pressure is greater than 100. Patient has a qSOFA score of 0- Negative Sepsis Screen. Suicide/Homicide risk assessment- the patient denies having any suicidal and/or homicidal ideations and does not present with any other emotional, behavioral or mental health complaints. Status: Patient is not a creative services writer or dependent. Transition of care: patient was not received from another setting of care. 00:14 Acuity: TAPAN Level 3 lf1 00:14 Method Of Arrival: Walkin/Carried/Asstd lf1 00:14 Red Flag criteria, patient assessed and taken directly to a bed. Chest pain/abdominal lf1 pain ongoing for two days. Primary nurse at bedside. EKG ordered. Triage Assessment: 06:08 Pt Declines HIV testing. Cardiovascular: Chest pain episodes. Cardiovascular: Chest mv5 pain is denied is described as quality is radiates began. Historical: - Allergies: Unknown; - Home Meds: 1. amitriptyline 50 mg Oral tab 1 tab nightly 2. baclofen 20 mg Oral tab daily 3. Citalopram 30 mg Oral once daily 4. Fish Oil 1,000 mg Oral tab 5. hydrochlorothiazide 25 mg Oral tab 1 tab once daily 6. losartan 50 mg oral tab 1 tab once daily 7. 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 No barriers to communication noted, The patient speaks fluent [place], Speaks appropriately for age, Preferred Language: Central African. - Family history: No immediate family members are acutely ill. - : The pt / caregiver states he / she is not on anticoagulants. Home medication list is obtained from the patient. - Exposure Risk Screening:: None identified. Screenin:22 Screening information is obtained from the patient. Fall risk: No risks identified. lf1 Assistance ADL's: requires no assistance with activities of daily living. Abuse/DV Screen: The patient / caregiver reports he/she is: not in a situation that causes fear, pain or injury. Nutritional screening: On bland/soft diet. Advance Directives: Currently, there is a health care proxy, Yoon Brenner (). home support is adequate. Assessment: 00:32 General: Appears uncomfortable, Behavior is cooperative, pleasant. Pain: Location: mv5 right upper quadrant and left upper quadrant Pain currently is 7 out of 10 on a pain scale. Neurological: Level of Consciousness is awake, alert, Oriented to person, place, time, Moves all extremities. Cardiovascular: Rhythm is sinus rhythm No ectopy. Respiratory: Airway is patent Respiratory effort is even, unlabored, Respiratory pattern is regular, symmetrical, Breath sounds are clear bilaterally. Derm: Skin is pink, warm & dry. 01:15 General: Appears uncomfortable, Behavior is cooperative, pleasant, Meds given as mv5 ordered.. Neurological: Level of Consciousness is awake, alert. Cardiovascular: Capillary refill < 3 seconds Rhythm is sinus rhythm No ectopy. Respiratory: No deficits noted. Derm: Skin is pink, warm & dry. 01:33 General: Pt resting with eyes closed.. mv5 02:25 General: Appears in no apparent distress. Respiratory: Airway is patent Respiratory mv5 effort is even, unlabored, Respiratory pattern is regular, symmetrical. Derm: Skin is pink, warm & dry. 04:04 General: Appears in no apparent distress. Cardiovascular: Rhythm is sinus rhythm No mv5 ectopy. Respiratory: Airway is patent Respiratory effort is even, unlabored, Respiratory pattern is regular, symmetrical. Derm: Skin is pink, warm & dry. 05:12 General: Appears uncomfortable, Pt again medicated as ordered for pain. Awaiting mv5 transfer to inpatient room. SBAR sent.. Neurological: Level of Consciousness is awake, alert, Oriented to person, place, time, Moves all extremities. 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 Respiratory: Airway is patent Respiratory effort is even, unlabored, Respiratory pattern is regular, symmetrical. Derm: Skin is pink, warm & dry. 06:05 General: Appears in no apparent distress. mv5 Vital Signs: 00:21 BP 138 / 90; Pulse 100; Resp 22; Pulse Ox 95% on R/A; Weight 86.18 kg (R); Height 5 ft. lf1 10 in. (177.80 cm) (R); Pain 10/10; 01:09 BP 157 / 87 (auto/); mv5 01:10 Pulse 92 MON; Pulse Ox 95% ; mv5 01:39 BP 134 / 69 (auto/); mv5 01:46 Pulse 80 MON; Pulse Ox 94% ; mv5 02:09 BP 137 / 74 (auto/); mv5 02:10 Pulse 84 MON; Pulse Ox 95% ; mv5 02:39 BP 137 / 82 (auto/); mv5 02:40 Pulse 78 MON; Pulse Ox 95% ; mv5 03:09 BP 149 / 115 (auto/); mv5 03:10 Pulse 80 MON; Pulse Ox 96% ; mv5 03:39 BP 140 / 82 (auto/); mv5 03:40 Pulse 64 MON; Pulse Ox 96% ; mv5 04:09 BP 155 / 80 (auto/); mv5 04:10 Pulse 62 MON; Pulse Ox 96% ; mv5 04:39 BP 138 / 86 (auto/); mv5 04:39 Pulse 62 MON; Pulse Ox 97% ; mv5 04:43 BP 138 / 86; Pulse 62; Resp 18; Temp 97.7(TE); Pulse Ox 97% ; mv5 05:09 BP 164 / 85 (auto/); mv5 05:10 Pulse 62 MON; Pulse Ox 96% ; mv5 05:39 BP 145 / 92 (auto/); mv5 05:40 Pulse 60 MON; Pulse Ox 98% ; mv5 00:21 Body Mass Index 27.26 (86.18 kg, 177.80 cm) 1 Vitals: 00:21 Log In Time: December 11, 2016 at 00:15. lf1 ED Course: 00:09 Patient visited by Jade Lazo, Reg. hs2 00:09 Patient moved to Waiting hs2 00:10 Patient moved to 8 hs2 00:11 Antonina Yanez,JENIFFER is Primary Nurse. tmm1 00:11 Patient moved to 11 tmm1 00:19 Triage Initiated lf1 00:22 The patient / caregiver is instructed regarding the plan of care and ED course. Cardiac lf1 monitor on. Pulse ox on. NIBP on. 00:23 Patient visited by Brynn Zacarias RN. lf1 00:29 Patient visited by Chantel Hughes PCA. kylee 00:29 EKG done. (by ED staff). Reviewed by Gerry He DO. kylee 00:32 Inserted saline lock: 20 gauge in left forearm and blood collected. The patient mv5 tolerated the procedure well. 00:37 Gerry He DO is Attending Physician. cs11 00:37 Patient visited by Gerry He DO. cs11 01:07 Patient visited by Antonina Yanez RN. mv5 01:55 Patient visited by Antonina Yanez RN. mv5 02:25 Patient visited by Antonina Yanez RN. mv5 02:39 CT ABD & PELVIS: IV Contrast Only Returned. EDMS 02:45 Jonelle Springer is Hospitalizing Provider. cs11 03:17 Written Provider Order was scanned into [employer] and attached to record. jlm 03:35 [facility] Payment Agreement was scanned into MEDHOST and attached to record. hs2 03:52 Written Provider Order was scanned into [employer] and attached to record. jlm 03:54 Written Provider Order was scanned into [employer] and attached to record. jlm 04:43 Patient visited by Janene Calle PCA. cln 05:40 No procedures done that require assistance. mv5 05:40 Inserted saline lock: 20 gauge in right forearm The patient tolerated the procedure mv5 well. Administered Medications: 01:06 Drug: Banana Bag - (NS 0.9% 1000 ml, folic acid 1 mg, Thiamine 100 mg, Infuvite Adult 1 mv5 amp) Route: IV; Rate: 1000 mL/hr; Site: left forearm; 05:35 Follow up: IV Status: Completed infusion mv5 01:06 Drug: morphine 2 mg [morphine 2 mg/mL intravenous cartridge (1 mL)] Route: IVP; Site: mv5 left forearm; 01:31 Follow up: Response: Pain is decreased mv5 01:54 Drug: Dilaudid - HYDROmorphone 0.5 mg [hydromorphone 1 mg/mL injection syringe (0.5 mv5 mL)] Route: IVP; Site: left forearm; 02:26 Follow up: Response: No Adverse Reaction mv5 Order Results: Lab Order: CBC with Diff; SPEC'M 12/11/16 00:26 Test: WHITE BLOOD COUNT; Value: 5.0; Range: 4.0-10.0; Units: K/mm3; Status: F Test: RED BLOOD COUNT; Value: 3.97; Range: 4.30-6.10; Abnormal: Below low normal; Units: M/mm3; Status: F Test: HEMOGLOBIN; Value: 12.6; Range: 14.0-18.0; Abnormal: Below low normal; Units: g/dl; Status: F Test: HEMATOCRIT; Value: 37.3; Range: 42.0-52.0; Abnormal: Below low normal; Units: %; Status: F Test: MEAN CORPUSCULAR VOLUME; Value: 93.9; Range: 80.0-96.0; Units: fl; Status: F Test: MEAN CORPUSCULAR HEMOGLOBIN; Value: 31.6; Range: 27.0-33.0; Units: pg; Status: F Test: MEAN CORPUSCULAR HGB CONC; Value: 33.7; Range: 32.0-36.5; Units: g/dl; Status: F Test: RED CELL DISTRIBUTION WIDTH; Value: 12.3; Range: 11.5-14.5; Units: %; Status: F Test: PLATELET COUNT, AUTOMATED; Value: 309; Range: 150-450; Units: k/mm3; Status: F Test: NEUTROPHILS %; Value: 56.1; Range: 36.0-66.0; Units: %; Status: F Test: LYMPH %; Value: 27.5; Range: 24.0-44.0; Units: %; Status: F Test: MONO %; Value: 7.5; Range: 0.0-5.0; Abnormal: Above high normal; Units: %; Status: F Test: EOS %; Value: 6.2; Range: 0.0-3.0; Abnormal: Above high normal; Units: %; Status: F Test: BASO %; Value: 0.5; Range: 0.0-1.0; Units: %; Status: F Test: LARGE UNSTAINED CELL %; Value: 2.3; Range: 0.0-4.0; Units: %; Status: F Test: NEUTROPHILS #; Value: 2.8; Range: 1.8-7.7; Units: K/mm3; Status: F Test: LYMPH #; Value: 1.4; Range: 1.5-4.5; Abnormal: Below low normal; Units: K/mm3; Status: F Test: MONO #; Value: 0.4; Range: 0.0-0.8; Units: K/mm3; Status: F Test: EOS #; Value: 0.3; Range: 0.0-0.50; Units: K/mm3; Status: F Test: BASO #; Value: 0.0; Range: 0.0-0.2; Units: K/mm3; Status: F Test: LARGE UNSTAINED CELL #; Value: 0.1; Range: 0.0-0.4; Units: K/mm3; Status: F Lab Order: [facility]; [facility] 12/11/16 00:26 Test: GLUCOSE, FASTING; Value: 159; Range: 70-105; Abnormal: Above high normal; Units: MG/DL; Status: F Test: BLOOD UREA NITROGEN; Value: 12; Range: 7-18; Units: MG/DL; Status: F Test: CREATININE FOR GFR; Value: 0.85; Range: 0.70-1.30; Units: MG/DL; Status: F Test: GLOMERULAR FILTRATION RATE; Value: > 60.0; Range: >56; Status: F Test: SODIUM LEVEL; Value: 142; Range: 136-145; Units: MEQ/L; Status: F Test: POTASSIUM SERUM; Value: 3.6; Range: 3.5-5.1; Units: MEQ/L; Status: F Test: CHLORIDE LEVEL; Value: 105; Range: 98-107; Units: MEQ/L; Status: F Test: CARBON DIOXIDE LEVEL; Value: 26; Range: 21-32; Units: MEQ/L; Status: F Test: ANION GAP; Value: 11; Range: 8-16; Units: MEQ/L; Status: F Test: CALCIUM LEVEL; Value: 8.4; Range: 8.5-10.1; Abnormal: Below low normal; Units: MG/DL; Status: F Test Note: ; Units are mL/min/1.73 m2 Chronic Kidney Disease Staging per NKF: Stage I & II GFR >=60 Normal to Mildly Decreased Stage III GFR 30-59 Moderately Decreased Stage IV GFR 15-29 Severely Decreased Stage V GFR <15 Very Little GFR Left ESRD GFR <15 on 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17; Range: 1.00-1.93; Status: F Lab Order: Amylase; 12/11/16 00:26 Test: AMYLASE; Value: 594; Range: 25-115; Abnormal: Above high normal; Units: U/L; Status: F Lab Order: Lipase; 12/11/16 00:26 Test: LIPASE; Value: 7940; Range: 73-393; Abnormal: Above high normal; Units: U/L; Status: F Lab Order: AMYLASE; 12/11/16 02:58 Test: AMYLASE; Value: 427; Range: 25-115; Abnormal: Above high normal; Units: U/L; Status: F Radiology Order: CT ABD & PELVIS: IV Contrast Only Test: CT ABD & PELVIS: IV Contrast Only REASON FOR EXAMINATION: pancreatitis; ; CLINICAL HISTORY: Abdominal pain.; TECHNIQUE: Multiple axial, sagittal and coronal CT images were obtained through the abdomen and pelvi; s after administration of intravenous contrast material.; COMMENTS:; Enlargement, hypodensity of the pancreatic head. Significant surrounding fat stranding. Mildly dilate; d fluid filled duodenum.; The liver is mildly enlarged with decreased attenuation without mass or defect.; There is no intra or extrahepatic biliary ductal dilatation.; The spleen is normal.; The gallbladder is surgically absent. The pancreas is of normal contour and attenuation characteristi; cs. There is no evidence of adrenal mass.; Both kidneys demonstrate prompt and equal nephrograms. The kidneys are normal in size, shape and conf; iguration. There is no evidence of renal or ureteral mass. No renal or ureteral calculi are identifie; d. There is no hydroureter or hydronephrosis.; No evidence for appendicitis. There is no bowel wall thickening. No evidence for small or large ada; l obstruction. There is no evidence of abdominal ascites or lymphadenopathy.; There is no evidence of intrinsic or extrinsic bladder mass. There is no pelvic ascites or lymphadeno; zenia. Mild prostatomegaly.; Images of the lung bases show no evidence of pleural or parenchymal mass. There are no pleural effusi; ons. Bilateral basilar atelectatic pulmonary changes.; The bony structures are free of lytic or blastic lesions. Multilevel degenerative changes are seen in; volving the thoracolumbar spine. Scattered calcifications are seen involving the aorta and major bran; ches compatible with atherosclerosis.; IMPRESSION:; Acute pancreatitis.; Ileus.; Hepatomegaly with fatty liver infiltration.; Thank you for your kind referral of this patient.; ; Outcome: 01:31 Discharge ordered by Provider. cs11 02:46 Decision to Hospitalize by Provider. cs11 05:40 Discharge Assessment: Patient awake, alert and oriented x 3. No cognitive and/or mv5 functional deficits noted. Patient verbalized understanding of disposition instructions. patient administered narcotics - yes. Patient was admitted to the hospital or transferred to another facility. The following High Risk Discharge criteria are identified: None. Admitted to Med/Surg accompanied by tech, via stretcher, with chart. Condition: stable. CT Study completed. Admission hand-off: Report called to Pooja Fleming RN. Property :Personal belongings accompany Pt. 06:10 Patient left the ED. mv5 Signatures: Dispatcher [employer] EDBrynn ChicasRN RN lf1 Chantel Hughes, PERFORMANCE CONSULTANT PERFORMANCE CONSULTANT kylee Gerry He, DO DO cs11 Gema Gould, PERFORMANCE CONSULTANT PERFORMANCE CONSULTANT tmm1 Aixa Jane, Steam [employer] Operator Unit jlm Jade Lazo, Reg Reg hs2 Janene Calle, PERFORMANCE CONSULTANT PERFORMANCE CONSULTANT Antonina Weber,RN RN mv5 Corrections: (The following items were deleted from the chart) 04:48 04:43 Temp 97.7F Temporal; cln mv5 Chart Complete LUMA
--- NOTE | 2016-12-13 07:11 | EDDOCDS ---
Physician Documentation [facility] Name: Joao Brenner Age: 56 yrs Sex: Male : 1960 Arrival Date: 12/11/2016 Time: 00:07 Bed 11 Private MD: Disposition: 12/11/16 02:46 Hospitalization ordered by Jonelle Springer for Inpatient Admission. 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 - Bed requested for 4 [place]. - Status is Inpatient Admission. mv5 - Condition is Stable. - Problem is chronic. - Symptoms have improved. Historical: - Allergies: Unknown; - Home Meds: 1. amitriptyline 50 mg Oral tab 1 tab nightly 2. baclofen 20 mg Oral tab daily 3. Citalopram 30 mg Oral once daily 4. Fish Oil 1,000 mg Oral tab 5. hydrochlorothiazide 25 mg Oral tab 1 tab once daily 6. losartan 50 mg oral tab 1 tab once daily 7. 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 No barriers to communication noted, The patient speaks fluent Yemeni, Speaks appropriately for age, Preferred Language: Yemeni. - Family history: No immediate family members are acutely ill. - : The pt / caregiver states he / she is not on anticoagulants. Home medication list is obtained from the patient. - Exposure Risk Screening:: None identified. Vital Signs: 12/11 00:21 BP 138 / 90; Pulse 100; Resp 22; Pulse Ox 95% on R/A; Weight 86.18 kg / 189.99 lbs (R); lf1 Height 5 ft. 10 in. (177.80 cm) (R); Pain 10/10; 01:09 BP 157 / 87 (auto/); mv5 01:10 Pulse 92 MON; Pulse Ox 95% ; mv5 01:39 BP 134 / 69 (auto/); mv5 01:46 Pulse 80 MON; Pulse Ox 94% ; mv5 02:09 BP 137 / 74 (auto/); mv5 02:10 Pulse 84 MON; Pulse Ox 95% ; mv5 02:39 BP 137 / 82 (auto/); mv5 02:40 Pulse 78 MON; Pulse Ox 95% ; mv5 03:09 BP 149 / 115 (auto/); mv5 03:10 Pulse 80 MON; Pulse Ox 96% ; mv5 03:39 BP 140 / 82 (auto/); mv5 03:40 Pulse 64 MON; Pulse Ox 96% ; mv5 04:09 BP 155 / 80 (auto/); mv5 04:10 Pulse 62 MON; Pulse Ox 96% ; mv5 04:39 BP 138 / 86 (auto/); mv5 04:39 Pulse 62 MON; Pulse Ox 97% ; mv5 04:43 BP 138 / 86; Pulse 62; Resp 18; Temp 97.7(TE); Pulse Ox 97% ; mv5 05:09 BP 164 / 85 (auto/); mv5 05:10 Pulse 62 MON; Pulse Ox 96% ; mv5 05:39 BP 145 / 92 (auto/); mv5 05:40 Pulse 60 MON; Pulse Ox 98% ; mv5 00:21 Body Mass Index 27.26 (86.18 kg, 177.80 cm) lf1 MDM: 00:15 ECG WITH READING ER PHYS+CARDIAG ordered. EDMS 00:39 CBC with Diff Ordered. EDMS 00:39 MED Profile Ordered. EDMS 00:39 Liver Profile Ordered. EDMS 00:39 Amylase Ordered. EDMS 00:39 Lipase Ordered. EDMS 00:52 CBC with Diff Reviewed. cs11 00:53 Banana Bag - (NS 0.9% 1000 ml, folic acid 1 mg, Thiamine 100 mg, Infuvite Adult 1 amp) cs11 IV at 1000 mL/hr bolus; *use both vials for Infuvite* ordered. 00:54 morphine 2 mg IVP once ordered. cs11 01:21 MED Profile Reviewed. cs11 01:21 Amylase Reviewed. cs11 01:21 Lipase Reviewed. cs11 01:21 Liver Profile Reviewed. cs11 01:23 CT ABD & PELVIS: IV Contrast Only Ordered. EDMS 01:24 BED REQUEST+ADM ordered. EDMS 01:47 Dilaudid - HYDROmorphone 0.5 mg IVP once ordered. cs11 02:47 Admission / Observation Status ordered. EDMS 02:48 NPO DIET ordered. EDMS 02:48 AMYLASE Ordered. EDMS 02:48 URINALYSIS Ordered. EDMS 03:11 Financial registration complete. hs2 03:17 Written Provider Order was scanned into Direct[employer] and attached to record. jlm 03:35 [facility] Payment Agreement was scanned into MEDHOST and attached to record. hs2 03:52 Written Provider Order was scanned into MEDHOST and attached to record. jlm 03:54 Written Provider Order was scanned into MEDHOST and attached to record. jl Administered Medications: 01:06 Drug: Banana Bag - (NS 0.9% 1000 ml, folic acid 1 mg, Thiamine 100 mg, Infuvite Adult 1 mv5 amp) Route: IV; Rate: 1000 mL/hr; Site: left forearm; 05:35 Follow up: IV Status: Completed infusion mv5 01:06 Drug: morphine 2 mg [morphine 2 mg/mL intravenous cartridge (1 mL)] Route: IVP; Site: mv5 left forearm; 01:31 Follow up: Response: Pain is decreased mv5 01:54 Drug: Dilaudid - HYDROmorphone 0.5 mg [hydromorphone 1 mg/mL injection syringe (0.5 mv5 mL)] Route: IVP; Site: left forearm; 02:26 Follow up: Response: No Adverse Reaction mv5 Signatures: Dispatcher [employer] EDMS Brynn Zacarias,RN RN lf1 Gerry He, DO DO cs11 Aixa Jane, [employer] Unit jlm Jade Lazo, Reg Reg hs2 Antonina Yanez,RN RN mv5 The chart was reviewed and I authenticate all verbal orders and agree with the evaluation and treatment provided.Attachments: 03:17 Written Provider Order jl 03:35 [facility] Payment Agreement hs2 03:54 Written Provider Order jl Chart Complete MTDD
[2016-12-13 09:00] VITALS: BP 140/69
[2016-12-13] MEDS: THIAMINE 100 MG TAB PO SCH (09:26)
[2016-12-13] MEDS: OMEGA-3 1050MG CAPSULE PO SCH (09:26)
[2016-12-13] MEDS: MULTIVITAMINS/MINERALS THERAP 1 TAB PO SCH (09:26)
[2016-12-13] MEDS: LOSARTAN 50 MG TAB PO SCH (09:26)
[2016-12-13] MEDS: ENOXAPARIN 40 MG/0.4 ML SYRINGE (J1650) SC SCH (09:27)
[2016-12-13] MEDS: FOLIC ACID 1 MG TAB PO SCH (09:27)
[2016-12-13] MEDS: CitaloPRAM (CeleXA) 20 MG TAB PO SCH (09:27)
[2016-12-13 14:00] VITALS: BP 173/91
--- NOTE | 2016-12-13 17:34 | IPN ---
DATE: 12/13/2016 SUBJECTIVE: Patient is still complaining about abdominal pain mainly toward the right abdomen, however the pain has improved compared to yesterday. Patient is still requiring multiple pain medications. Patient stated he would like to start with oral diet today. No overnight events reported. OBJECTIVE: VITAL SIGNS: Temperature 98.2, pulse 68, respirations 18, blood pressure 140/79, pulse oximetry 96% in room air. GENERAL: No sign of acute distress, alert and oriented times three. HEENT: Normocephalic, atraumatic. Extraocular motors grossly intact. CARDIOVASCULAR: Positive S1, S2, regular rate. LUNGS: Clear to auscultation bilaterally. ABDOMEN: Tenderness to palpation mainly in the upper abdomen toward the right side. Abdomen soft, no rebound. Bowel sounds present. EXTREMITIES: No edema, no cyanosis. LABORATORY DATA: WBC 3.5, hemoglobin 10.3, hematocrit 31.6, platelet count 201. Sodium 142, potassium 3.9, chloride 111, carbon dioxide 26, BUN 3, creatinine 0.78, GFR greater than 60, fasting glucose 102, calcium 7.6, total bilirubin 0.4, AST 15, ALT 17, alkaline phosphatase 87, total protein 5.9, albumin 2.4, lipase 278. ASSESSMENT AND PLAN: 1. Acute flare of chronic pancreatitis. Patient has been nothing by mouth. Patient was on intravenous (IV) fluids since admission. Currently lipase level returned to normal range. Continue with pain management. After discussion with patient, patient agreed to start with liquid diet and advance diet as tolerated. 2. History of alcohol abuse. Patient is on thiamine, folic acid, and multivitamin. 3. Depression. 4. Hypertension. 5. History of diverticulosis. 6. Hyperlipidemia. 7. Deep venous thrombosis (DVT) prophylaxis. On Lovenox.
[2016-12-13 20:00] VITALS: BP 168/88
[2016-12-13] MEDS: AMITRIPTYLINE 50 MG TAB PO SCH (20:00)
[2016-12-13] MEDS ORDERED: diphenhydrAMINE 25 MG CAP PO ONE (21:30)
[2016-12-13 22:00] VITALS: BP 168/88
[2016-12-13 22:48] VITALS: BP 162/98
[2016-12-14] MEDS: KCL 20MEQ IN D5/NS 1000ML 1,000 ML IV SCH ×2 (02:18→16:06)
[2016-12-14] MEDS: MORPHINE 2 MG/ML 1ML SYRINGE IV PRN (04:12)
[2016-12-14] MEDS: ONDANSETRON 4MG/2ML VIAL (J2405) IV PRN (04:18)
[2016-12-14 05:32] LABS: BASO % 0.3 % (0.0-1.0); EOS # 0.4 K/mm3 (0.0-0.50); EOS % 8.2 % (0.0-3.0); LARGE UNSTAINED CELL # 0.1 K/mm3 (0.0-0.4); LARGE UNSTAINED CELL % 2.9 % (0.0-4.0); LYMPH # 0.9 K/mm3 (1.5-4.5); LYMPH % 19.1 % (24.0-44.0); MEAN CORPUSCULAR HEMOGLOBIN 30.7 pg (27.0-33.0); MEAN CORPUSCULAR HGB CONC 33.1 g/dl (32.0-36.5); MEAN CORPUSCULAR VOLUME 92.8 fl (80.0-96.0); MONO # 0.3 K/mm3 (0.0-0.8); MONO % 6.5 % (0.0-5.0); PLATELET COUNT, AUTOMATED 277 k/mm3 (150-450); RED CELL DISTRIBUTION WIDTH 11.7 % (11.5-14.5); WHITE BLOOD COUNT 4.7 K/mm3 (4.0-10.0)
[2016-12-14 05:33] LABS: BLOOD UREA NITROGEN 2 MG/DL (7-18); CREATININE FOR GFR 0.84 MG/DL (0.70-1.30); GLUCOSE, FASTING 118 MG/DL (70-105)
[2016-12-14 05:34] LABS: ALBUMIN 2.7 GM/DL (3.2-5.2); ALBUMIN/GLOBULIN RATIO 0.77 (1.00-1.93); ALKALINE PHOSPHATASE 98 U/L (45-117); ALT/SGPT 18 U/L (12-78); ANION GAP 5 MEQ/L (8-16); AST/SGOT 15 U/L (15-37); BILIRUBIN,TOTAL 0.3 MG/DL (0.2-1.0); CALCIUM LEVEL 7.9 MG/DL (8.5-10.1); CARBON DIOXIDE LEVEL 27 MEQ/L (21-32); CHLORIDE LEVEL 106 MEQ/L (98-107); GLOMERULAR FILTRATION RATE > 60.0 (>56); POTASSIUM SERUM 3.9 MEQ/L (3.5-5.1); SODIUM LEVEL 138 MEQ/L (136-145); TOTAL PROTEIN 6.2 GM/DL (6.4-8.2)
[2016-12-14 06:00] VITALS: BP 166/82
[2016-12-14] MEDS: OMEGA-3 1050MG CAPSULE PO SCH (09:10)
[2016-12-14] MEDS: CitaloPRAM (CeleXA) 20 MG TAB PO SCH (09:10)
[2016-12-14] MEDS: THIAMINE 100 MG TAB PO SCH (09:10)
[2016-12-14] MEDS: FOLIC ACID 1 MG TAB PO SCH (09:10)
[2016-12-14] MEDS: MULTIVITAMINS/MINERALS THERAP 1 TAB PO SCH (09:10)
[2016-12-14] MEDS: ENOXAPARIN 40 MG/0.4 ML SYRINGE (J1650) SC SCH (09:11)
[2016-12-14] MEDS: LOSARTAN 50 MG TAB PO SCH (09:11)
[2016-12-14 15:41] VITALS: BP 160/88
--- NOTE | 2016-12-14 19:33 | IPN ---
DATE: 12/14/2016 SUBJECTIVE: Patient seen and examined in the room today. Yesterday patient was trying a full liquid diet, and he also tried some Ensure; however, he started feeling not well, and there was worsening of abdominal discomfort; therefore, patient stated he would like to go slow with a dietary advancement. He is afraid that the pain will recur if he advances to soft diet today. Otherwise, no overnight events reported. OBJECTIVE: VITAL SIGNS: Temperature is 99.6, pulse 80, respirations 18, blood pressure is 166/82, pulse oximetry 97% in room air. GENERAL: No sign of acute distress, alert and oriented times three. HEENT: Normocephalic, atraumatic. Extraocular motor grossly intact. CARDIOVASCULAR: Positive S1, S2, regular rate. LUNGS: Clear to auscultation bilaterally. ABDOMEN: Still some tenderness to palpation, mainly upper abdomen. Abdomen is Soft, nontender, nondistended. Bowel sounds present. EXTREMITIES: No edema. No cyanosis. LABORATORY DATA: WBC 4.7, hemoglobin 11.2, hematocrit 33.8, platelet count is 277. Sodium 138, potassium 3.9, chloride is 106, carbon dioxide 27, BUN 2, creatinine 0.84, GFR greater than 60, fasting glucose 118, calcium is 7.9. Total bilirubin is 0.3, AST 15, ALT is 18, alkaline phosphatase is 98, total protein 6.2, albumin 2.7. Lipase 144. ASSESSMENT AND PLAN: 1. Acute on chronic pancreatitis. Currently patient continues to be on intravenous (IV) fluid. Patient was attempting full liquid diet; however, patient started to show some abdominal discomfort. Patient will advance the diet as tolerated slowly. Continue with pain management. Continue trending the lipase level. 2. History of alcohol abuse. Continue thiamine, folic acid, and multivitamin. 3. Depression. 4. Hypertension. 5. History of diverticulosis. 6. Hyperlipidemia. 7. Deep vein thrombosis (DVT) prophylaxis, on Lovenox.
[2016-12-14 20:09] VITALS: BP 164/82
[2016-12-14] MEDS: AMITRIPTYLINE 50 MG TAB PO SCH (20:09)
[2016-12-14] MEDS: KETOROLAC 30 MG/ML VIAL (J1885) IV PRN (20:10)
[2016-12-14 22:00] VITALS: BP 164/82
[2016-12-15] MEDS: KCL 20MEQ IN D5/NS 1000ML 1,000 ML IV SCH (03:04)
[2016-12-15 06:00] VITALS: BP 148/74
[2016-12-15 06:46] LABS: ALBUMIN 2.8 GM/DL (3.2-5.2); ALBUMIN/GLOBULIN RATIO 0.74 (1.00-1.93); ALKALINE PHOSPHATASE 93 U/L (45-117); ALT/SGPT 17 U/L (12-78); ANION GAP 7 MEQ/L (8-16); AST/SGOT 15 U/L (15-37); BILIRUBIN,TOTAL 0.3 MG/DL (0.2-1.0); BLOOD UREA NITROGEN 3 MG/DL (7-18); CALCIUM LEVEL 8.7 MG/DL (8.5-10.1); CARBON DIOXIDE LEVEL 26 MEQ/L (21-32); CHLORIDE LEVEL 108 MEQ/L (98-107); CREATININE FOR GFR 0.84 MG/DL (0.70-1.30); GLOMERULAR FILTRATION RATE > 60.0 (>56); GLUCOSE, FASTING 121 MG/DL (70-105); POTASSIUM SERUM 4.1 MEQ/L (3.5-5.1); SODIUM LEVEL 141 MEQ/L (136-145); TOTAL PROTEIN 6.6 GM/DL (6.4-8.2)
[2016-12-15 07:15] LABS: BASO % 0.2 % (0.0-1.0); EOS # 0.4 K/mm3 (0.0-0.50); EOS % 7.5 % (0.0-3.0); LARGE UNSTAINED CELL # 0.2 K/mm3 (0.0-0.4); LARGE UNSTAINED CELL % 3.6 % (0.0-4.0); LYMPH # 1.4 K/mm3 (1.5-4.5); LYMPH % 28.1 % (24.0-44.0); MEAN CORPUSCULAR HEMOGLOBIN 31.5 pg (27.0-33.0); MEAN CORPUSCULAR HGB CONC 33.4 g/dl (32.0-36.5); MEAN CORPUSCULAR VOLUME 94.3 fl (80.0-96.0); MONO # 0.3 K/mm3 (0.0-0.8); MONO % 6.7 % (0.0-5.0); NEUTROPHILS # 2.6 K/mm3 (1.8-7.7); NEUTROPHILS % 53.9 % (36.0-66.0); PLATELET COUNT, AUTOMATED 305 k/mm3 (150-450); RED CELL DISTRIBUTION WIDTH 11.9 % (11.5-14.5); WHITE BLOOD COUNT 4.8 K/mm3 (4.0-10.0)
[2016-12-15] MEDS: OMEGA-3 1050MG CAPSULE PO SCH (08:53)
[2016-12-15 08:54] VITALS: BP 148/74
[2016-12-15] MEDS: MULTIVITAMINS/MINERALS THERAP 1 TAB PO SCH (08:54)
[2016-12-15] MEDS: LOSARTAN 50 MG TAB PO SCH (08:54)
[2016-12-15] MEDS: ENOXAPARIN 40 MG/0.4 ML SYRINGE (J1650) SC SCH (08:54)
[2016-12-15] MEDS: FOLIC ACID 1 MG TAB PO SCH (08:54)
[2016-12-15] MEDS: CitaloPRAM (CeleXA) 20 MG TAB PO SCH (08:54)
[2016-12-15] MEDS: THIAMINE 100 MG TAB PO SCH (08:54)
[2016-12-15 09:00] VITALS: BP 150/82
[2016-12-15] MEDS ORDERED: THIA100TA PO (10:04)
[2016-12-15] MEDS ORDERED: FOLI1TAB2 PO (10:04)
[2016-12-15] MEDS ORDERED: VITMTA PO (10:04)
--- NOTE | 2016-12-15 21:26 | DSES ---
DATE OF ADMISSION: 12/11/2016 DATE OF DISCHARGE: 12/15/2016 PRIMARY CARE PROVIDER: Dr. Aashish Jane OUTPATIENT GASTROINTESTINAL SPECIALIST: Dr. Greene CONSULTANTS: None. PROCEDURES: None. COMPLICATIONS: None. ADMISSION/DISCHARGE DIAGNOSES: 1. Acute on chronic pancreatitis. 2. History of alcohol abuse. 3. Depression. 4. Hypertension. 5. History of diverticulosis. 6. Dyslipidemia. HOSPITALIZATION COURSE: Patient is a 56-year-old male who presented to [facility] for acute worsening of abdominal pain. On admission, patient had lipase of 7940, and CT of the abdomen and pelvis showed acute pancreatitis. Patient was admitted to medical/surgical floor. Patient was placed nothing by mouth. Patient was started on pain control. Patient was also started on intravenous (IV) fluid. With conservative approach, patient's lipase level continued to trending down. On the second day of the hospitalization, patient was started on the liquid diet; however, due to recurrence of the abdominal pain, patient was placed back on nothing by mouth for 1 day. Later, patient was able to advance his diet slowly. On 12/15/2016, patient only requires intermittent nonsteroidal anti-inflammatory drugs (NSAIDs) to control the pain. Patient was able to advance his diet to oral, and patient determined medically stable for discharge. Patient has a scheduled appointment to see Dr. Greene on 12/22/2016 for his frequent pancreatitis flares, and patient is instructed to eat low-fat diet. Instruction was given by the assistant wrestling coach, who was consulted during this admission, and all patient's questions were answered. OBJECTIVE: VITAL SIGNS: Temperature 96.9, pulse 57, respirations 17, blood pressure 148/74, pulse oximetry 95% in room air. LABORATORY DATA: WBC is 4.8, hemoglobin 12.1, hematocrit 36.3, platelet count is 305. Sodium is 141, potassium 4.1, chloride 108, carbon dioxide 26, BUN 3, creatinine 0.84, GFR greater than 60, fasting glucose 121, calcium 8.7. Total bilirubin 0.3 AST 15, ALT 17, alkaline phosphatase 93, total protein 6.6, albumin 2.8. Lipase is 168. At admission lipase was 7940. On admission, the patient's amylase is 594. IMAGING STUDIES: CT of the abdomen and pelvis with contrast is acute pancreatitis. Ileus. Hepatomegaly with fatty liver infiltrate. Magnetic resonance cholangiopancreatography (MRCP) on 12/11/2016 showed no focal hepatic or splenic lesion. The gallbladder is surgically absent. There is a parenchymal, fibrotic, or atelectatic changes in the lung base bilaterally. There is some peripancreatic straining visible about the pancreatic head and duodenum. The common bile duct and common hepatic duct are not dilated. The intrahepatic bile duct is not dilated. No evidence of pancreatic or biliary ductal dilatation or abnormalities. DISCHARGE INSTRUCTIONS: Discontinue line. Discharge home. Activity as tolerated. Low-fat, low-salt diet as tolerated. Patient shall follow with his primary care provider, Dr. Aashish Jane, in 1-2 weeks. Patient shall followup with hogshead dumper, Dr. Greene, on 12/22/2016. DISCHARGE MEDICATION: - folic acid 1 mg by mouth daily - multivitamin one tablet by mouth daily - thiamine 100 mg by mouth daily - Percocet one tablet by mouth every 6 hours as needed - amitriptyline 50 mg by mouth at bedtime - Baclofen 20 mg by mouth three times a day as needed for muscle spasms - citalopram 40 mg by mouth daily - Dexilant 30 mg by mouth daily - fish oil 1000 mg by mouth daily - losartan 100 mg by mouth twice a day - Creon by mouth with meals - MiraLax 17 gram by mouth daily DISCHARGE TIME: Greater than 30 minutes. DISCHARGE CONDITION: Stable.
== END 2016-12-15 11:38 | disposition home or self-care (01) | DRG 439 ==
LOC: M ED 00:07 → M ED INP 02:43 → M MSPAV 06:12
PROVIDERS: ADMIT General Practice; ATTEND Internal Medicine
DX: K85.90 Acute pancreatitis without necrosis or infection, unspecified (principal); K56.7 Ileus, unspecified; M50.00 Cervical disc disorder with myelopathy, unspecified cervical region; K86.1 Other chronic pancreatitis; K76.0 Fatty (change of) liver, not elsewhere classified; I10 Essential (primary) hypertension; K57.90 Diverticulosis of intestine, part unspecified, without perforation or abscess without bleeding; F10.21 Alcohol dependence, in remission; E78.5 Hyperlipidemia, unspecified; F32.9 Major depressive disorder, single episode, unspecified; Z79.899 Other long term (current) drug therapy; Z90.49 Acquired absence of other specified parts of digestive tract; Z88.8 Allergy status to other drugs, medicaments and biological substances; Z82.49 Family history of ischemic heart disease and other diseases of the circulatory system

== ENCOUNTER → 2017-09-03 | Outpatient (CLI) | payer MEDICARE, MEDICAID ==
[~2017-09-03] MED LIST changes: -BACL-67 PO; +BACL1TAB9 PO; +CITA40TA4 PO; -COLA100C PO; +COLA100C5 PO; +CREO24CA PO; +DEXI30CA2 PO; +FOLI1TAB4 PO; +PERC5TAB12 PO; -PERC5TAB6 PO; +THIA100TA PO; +VITMTA PO
--- NOTE | 2017-09-03 13:19 | REP ---
MRI cervical spine without contrast: History: Neck pain. Thoracic pain. Comparison MRI study is from October 14, 2013. The patient is status post surgery. Technique: Sagittal and axial T1 and T2-weighted scans are acquired in the usual fashion with and without fat saturation. Sequences include spin echo, turbo spin-echo, and STIR imaging sequences. MRI findings: The patient is status post ventral discectomy and fusion plating across the C3-4 disc level. In addition, the patient is status post C4-5, C5-6 fusion with posterior element metallic screws placed and laminectomy is performed at C3 through C6. There is postoperative enlargement of the thecal sac as expected from C3-C6. No cord compressive lesion is seen. There is, however, some abnormal T2 signal intensity again noted in the cervical cord at the level of C3 and C5 with mild cord atrophy in this region. This is compatible with myelomalacia. Some of these changes were visible in the cervical cord on the September 2013 preoperative study. At C6-7, today's MR study shows broad-based central disc bulging effacing the ventral margin of the thecal sac but not contacting the cord. There is mild uncovertebral spurring bilaterally at C6-7 producing mild neural foraminal encroachment. At C7-T1, no significant abnormality is noted. The C2-3 level shows minimal disc bulging and mild bilateral uncovertebral spurring. No central canal stenosis is seen. Craniocervical junction is unremarkable. Impression: Status post ventral and posterolateral dorsal fusion C3 through C6 with laminectomies at these levels. No cord compression is seen. Old mild myelomalacia changes as above. Degenerative disc changes are noted C2-3 and C6-7 with uncovertebral spurring bilaterally at these levels. Signed by Nate Hoffmann MD 09/03/2017 02:32 P
--- NOTE | 2017-09-03 13:26 | REP ---
MRI thoracic spine without contrast: History: Worsening neck and back pain. Comparison MRI thoracic spine study is from October 14, 2013. Technique: Sagittal and axial T1 and T2-weighted scans are acquired in the usual fashion with and without fat saturation. Sequences include spin echo, turbo spin-echo, and STIR imaging sequences. MRI findings: There is a small hemangioma in the right side of the T10 vertebral body. Cortical and medullary bone signal intensity are otherwise normal. No extrathoracic abnormality is seen. There is mild thoracic curvature. Vertebral body heights are preserved. There is left posterior disc bulging at T11-T12. Other disc margins appear intact. No cord compressive lesion is seen. There is some linear increased signal intensity in the right side of the thoracic cord at the T6 and T5 level. There is some atrophy of the right side of the cord at this level. This is probably unchanged from September 2013 prior study. No neural foraminal narrowing is seen. No abnormal epidural collection is observed. No bony destructive lesion seen. Impression: Linear increased signal intensity in the substance of the cord to the right of midline in the mid thoracic levels with mild right-sided cord atrophy consistent with myelomalacia. Findings are felt to be chronic. No cord compressive lesion is seen. Signed by Nate Hoffmann MD 09/03/2017 02:32 P
== END ==
LOC: M RAD 10:09
PROVIDERS: ATTEND Neurological Surgery
DX: M54.2 Cervicalgia (principal); M54.6 Pain in thoracic spine; M54.5 Low back pain

== ENCOUNTER 2018-06-04 18:36 | Emergency (ER) | payer MEDICARE, MEDICAID ==
[2018-06-04 19:30] LABS: APPEARANCE, URINE CLEAR (CLEAR); BACTERIA, URINE AUTO NEGATIVE (NEGATIVE); BILIRUBIN, URINE AUTO NEGATIVE (NEGATIVE); BLOOD, URINE BLOOD NEGATIVE (NEGATIVE); COLOR, URINE YELLOW (YELLOW); GLUCOSE, URINE (UA) AUTO NEGATIVE (NEGATIVE); KETONE, URINE AUTO NEGATIVE (NEGATIVE); LEUKOCYTE ESTERASE, URINE AUTO NEGATIVE (NEGATIVE); NITRITE, URINE AUTO NEGATIVE (NEGATIVE); PROTEIN, URINE AUTO NEGATIVE (NEGATIVE); RBC, URINE AUTO 1 /HPF (0-3); SPECIFIC GRAVITY URINE AUTO 1.008 (1.002-1.035); SQUAMOUS EPITHELIAL CELL UR AU 0 /HPF (0-6); UROBILINOGEN, URINE AUTO 0.2 mg/dL (0.0-2.0); WBC, URINE AUTO 0 /HPF (0-3)
[2018-06-04] MEDS: KETOROLAC 30 MG/ML VIAL (J1885) IV (19:33)
[2018-06-04] MEDS: METOCLOPRAMIDE INJ 10MG/2ML VIAL (J2765) IV (19:33)
[2018-06-04] MEDS: NS 1,000 ML IV (19:33)
[2018-06-04 19:37] LABS: BASO % 0.1 % (0.0-1.0); EOS # 0.1 10^3/uL (0.0-0.50); EOS % 0.7 % (0.0-3.0); HEMATOCRIT 40.3 % (42.0-52.0); HEMOGLOBIN 13.9 g/dl (13.5-17.5); IMMATURE GRANULOCYTE % 0.3 % (0-3.0); LYMPH # 1.6 10^3/uL (1.5-4.5); LYMPH % 21.3 % (24.0-44.0); MEAN CORPUSCULAR HEMOGLOBIN 33.9 pg (27.0-33.0); MEAN CORPUSCULAR HGB CONC 34.5 g/dl (32.0-36.5); MEAN CORPUSCULAR VOLUME 98.3 fl (80.0-96.0); MONO # 0.5 10^3/uL (0.0-0.8); MONO % 6.6 % (0.0-5.0); NEUTROPHILS # 5.3 10^3/uL (1.8-7.7); PLATELET COUNT, AUTOMATED 193 10^3/uL (150-450); RED CELL DISTRIBUTION WIDTH 12.2 % (11.5-14.5); WHITE BLOOD COUNT 7.5 10^3/uL (4.0-10.0)
[2018-06-04] MEDS: GASTROGRAFIN SOLUTION 30ML PO ×2 (19:42→20:11)
[2018-06-04 20:04] LABS: ALBUMIN 3.5 GM/DL (3.2-5.2); ALBUMIN/GLOBULIN RATIO 0.95 (1.00-1.93); ALKALINE PHOSPHATASE 99 U/L (45-117); ALT/SGPT 50 U/L (12-78); AMYLASE 50 U/L (25-115); ANION GAP 10 MEQ/L (8-16); AST/SGOT 41 U/L (7-37); BILIRUBIN,TOTAL 1.2 MG/DL (0.2-1.0); BLOOD UREA NITROGEN 9 MG/DL (7-18); C REACTIVE PROTEIN QUANTITATIV 2.86 MG/DL (0.00-0.30); CALCIUM LEVEL 8.2 MG/DL (8.5-10.1); CARBON DIOXIDE LEVEL 25 MEQ/L (21-32); CHLORIDE LEVEL 104 MEQ/L (98-107); CREATININE FOR GFR 0.83 MG/DL (0.70-1.30); GLOMERULAR FILTRATION RATE > 60.0 (>56); GLUCOSE, FASTING 100 MG/DL (70-100); LIPASE 326 U/L (73-393); POTASSIUM SERUM 3.4 MEQ/L (3.5-5.1); SODIUM LEVEL 139 MEQ/L (136-145); TOTAL PROTEIN 7.2 GM/DL (6.4-8.2)
[2018-06-04] MEDS ORDERED: ISOVUE-370 76% 100ML VIAL (Q9967) As Ordered (20:51)
[2018-06-04] MEDS: MORPHINE 4 MG/ML 1ML VIAL/SYRINGE (J2270) IV (21:22)
[2018-06-04] MEDS: AUGMENTIN 875 MG TAB PO (23:07)
== END 2018-06-04 23:19 | disposition home or self-care (01) ==
LOC: M ED 18:36
DX: K29.80 Duodenitis without bleeding (principal); R00.0 Tachycardia, unspecified; R11.10 Vomiting, unspecified; I10 Essential (primary) hypertension; F32.9 Major depressive disorder, single episode, unspecified; Z87.19 Personal history of other diseases of the digestive system; Z91.81 History of falling
CPT/HCPCS: J2270

== ENCOUNTER 2019-05-21 02:12 | Emergency (ER) | payer MEDICARE, MEDICAID ==
[~2019-05-21] VITALS: Ht 177.8 cm; Wt 86.4 kg
[~2019-05-21 02:12] MED LIST changes: -/MOM400 PO; -AMLO5TAB2 PO; +AMLO5TAB6 PO; +AUGM875T28 PO; -CITA20TA4 PO; +CITA20TA6 PO; -DOCU10ELUD PO; +DOCU5LIQ PO; +FISH7.5C PO; +FLOM0.4C39 PO; -FLOM5CAP PO; +FOLI1TAB11 PO; -FOLI1TAB4 PO; +HYDR-3715 PO; +KLOR10TA76 PO; +LOSA100T50 PO; -LOSA50TA20 PO; +LOSA50TA88 PO; +MILK10SU PO; -PANT40TA2 PO; +PANT40TA3 PO; -POTA10CA PO; +REGL10TA6 PO
[2019-05-21 02:48] LABS: BASO % 0.2 % (0.0-1.0); EOS % 0.3 % (0.0-3.0); HEMATOCRIT 39.2 % (42.0-52.0); HEMOGLOBIN 13.6 g/dl (13.5-17.5); LYMPH # 1.3 10^3/uL (1.5-4.5); LYMPH % 19.5 % (24.0-44.0); MEAN CORPUSCULAR HEMOGLOBIN 34.2 pg (27.0-33.0); MEAN CORPUSCULAR HGB CONC 34.7 g/dl (32.0-36.5); MEAN CORPUSCULAR VOLUME 98.5 fl (80.0-96.0); MONO # 0.6 10^3/uL (0.0-0.8); MONO % 8.7 % (0.0-5.0); NEUTROPHILS # 4.6 10^3/uL (1.8-7.7); NEUTROPHILS % 70.8 % (36.0-66.0); PLATELET COUNT, AUTOMATED 205 10^3/uL (150-450); RED BLOOD COUNT 3.98 10^6/uL (4.30-6.10); WHITE BLOOD COUNT 6.5 10^3/uL (4.0-10.0)
[2019-05-21 03:10] LABS: ALBUMIN 3.4 GM/DL (3.2-5.2); ALT/SGPT 64 U/L (12-78); BILIRUBIN,DIRECT < 0.1 MG/DL (0.0-0.2); BILIRUBIN,TOTAL 0.4 MG/DL (0.2-1.0); BLOOD UREA NITROGEN 17 MG/DL (7-18); CALCIUM LEVEL 8.5 MG/DL (8.5-10.1); CARBON DIOXIDE LEVEL 23 MEQ/L (21-32); CHLORIDE LEVEL 102 MEQ/L (98-107); GLOMERULAR FILTRATION RATE > 60.0 (>56); GLUCOSE, FASTING 132 MG/DL (70-100); LIPASE 353 U/L (73-393); POTASSIUM SERUM 3.7 MEQ/L (3.5-5.1); SODIUM LEVEL 137 MEQ/L (136-145); TOTAL PROTEIN 6.7 GM/DL (6.4-8.2)
[2019-05-21] MEDS ORDERED: KETOROLAC 30 MG/ML VIAL (J1885) As Ordered ONE (03:17)
[2019-05-21] MEDS ORDERED: TAMSULOSIN 0.4 MG CAP PO ONE (03:30)
[2019-05-21] MEDS ORDERED: KETOROLAC 30 MG/ML VIAL (J1885) IV ONE (03:30)
[2019-05-21] MEDS ORDERED: NS 1,000 ML IV ONE ×2 (03:30→06:15)
[2019-05-21] MEDS ORDERED: METOCLOPRAMIDE INJ 10MG/2ML VIAL (J2765) As Ordered ONE (03:31)
[2019-05-21] MEDS ORDERED: METOCLOPRAMIDE INJ 10MG/2ML VIAL (J2765) IV ONE (03:45)
[2019-05-21] MEDS ORDERED: MORPHINE 10 MG/ML 1ML VIAL (J2270) IV ONE ×2 (03:45→06:15)
--- NOTE | 2019-05-21 05:06 | REPVR ---
EXAM: CT Abdomen and Pelvis Without Contrast EXAM DATE/TIME: 05/21/2019 3:15 AM CLINICAL HISTORY: 58 years old, male; Abdominal pain; Flank; Right; Additional info: R colic TECHNIQUE: Imaging protocol: Axial computed tomography images of the abdomen and pelvis without contrast. Coronal and sagittal reformatted images were created and reviewed. Radiation optimization: All CT scans at this facility use at least one of these dose optimization techniques: automated exposure control; mA and/or kV adjustment per patient size (includes targeted exams where dose is matched to clinical indication); or iterative reconstruction. COMPARISON: CT ABD/PEL W/IV ORAL CONTRAS 06/04/2018 9:33 PM FINDINGS: Limitations: Evaluation of the abdominal viscera is limited without intravenous contrast. Lungs: Posterior dependent atelectasis at the lung bases. No consolidation. Mediastinum: Small hiatal hernia. Liver: Hepatomegaly. The liver measures 21 cm in length. Fatty infiltration. Gallbladder and bile ducts: Status post cholecystectomy. Pancreas: The pancreas is unremarkable. No ductal dilatation. Spleen: The spleen is unremarkable in appearance. Adrenals: The adrenal glands are unremarkable. No mass. Kidneys and ureters: There is moderate right hydronephrosis with perinephric stranding and fluid. Right hydroureter with periureteral stranding. There is dilatation of the right ureter down to the level of the urinary bladder where there is a 6 mm calculus perched at the right UVJ. No other suspicious urinary tract calculi. No evidence of hydronephrosis on the left. Stomach and bowel: The stomach is decompressed. No bowel obstruction. Colonic diverticulosis. No acute diverticulitis. Appendix: The appendix is nonvisualized. Intraperitoneal space: No free fluid. No free air. Vasculature: Mild atherosclerosis. No abdominal aortic aneurysm. Lymph nodes: No significant adenopathy. Bladder: The urinary bladder is essentially decompressed. Reproductive: Unremarkable as visualized. Bones/joints: Degenerative change involving the sacroiliac joints and hip joints. Degenerative change within the lower thoracic and lumbar spine. No acute fracture. Soft tissues: Unremarkable. IMPRESSION: 1. Right obstructive uropathy with moderate right hydronephrosis and hydroureter with dilatation of the right ureter down to the level of the urinary bladder where there is a 6 mm calculus perched at the right UVJ. Right perinephric stranding and fluid is consistent with forniceal rupture. 2. Hepatomegaly with diffuse fatty infiltration of the liver. 3. Colonic diverticulosis. No acute diverticulitis. 4. Additional non-emergent findings, as discussed above. Electronically signed by: Migel Rodriguez On 05/21/2019 05:05:59 AM
[2019-05-21 06:30] VITALS: BP 162/79
== END 2019-05-21 06:32 | disposition home or self-care (01) ==
LOC: M ED 02:12
DX: N20.1 Calculus of ureter (principal); F10.10 Alcohol abuse, uncomplicated; Z79.899 Other long term (current) drug therapy; Z88.8 Allergy status to other drugs, medicaments and biological substances
CPT/HCPCS: 74176; 80048; 80076; 81001; 83690; 85025; 96374; 96375; 99284; J1885; J2270; J2765

== ENCOUNTER → 2020-01-19 | Outpatient (CLI) | payer MEDICARE, MEDICAID | LOC: M LABSMTC 11:38 | PROVIDERS: ATTEND Family Medicine | DX: Z11.59 Encounter for screening for other viral diseases (principal); Z20.828 Contact with and (suspected) exposure to other viral communicable diseases ==

== ENCOUNTER 2021-08-03 14:55 | Emergency (ER) | payer MEDICARE, MEDICAID ==
[~2021-08-03] VITALS: Ht 177.8 cm; Wt 89.8 kg
[~2021-08-03 14:55] MED LIST changes: -AMIT25TA PO; +AMIT25TA17 PO; +AMLO1TAB24 PO; -AMLO5TAB6 PO; -ASPI81TA85 PO; +ASPI81TA86 PO; +HYDR-3490 PO; -HYDR25TAB PO; -KLOR10TA76 PO; +PANT40TA29 PO; -PANT40TA3 PO; +POTA-136 PO
--- OUTSIDE RECORDS SUMMARY | 2021-08-03 15:00 | CCD | Continuity of Care Document ---
Author Author Joao JANE M.D. Organization Unknown Address 3 [facility] [address] [place] [address] Phone [phone] Care Team Providers Care Systems Admin Name Role Phone Ulysses Ortega D.O. AUTM [phone] Jonel Sánchez M.D. AUTM [phone] Problems Active Problems Provider Date Benign essential hypertension Kamlesh Watson M.D. Onset: 0 02/06/2006 Kidney stone Kamlesh Watson M.D. Onset: 02/06/2006 Gastroduodenitis Kamlesh Watson M.D. Onset: 02/06/2006 Postcholecystectomy syndrome Kamlesh Watson M.D. Onset: Benign prostatic hyperplasia with outflow obstruction Kamlesh Watson M.D. Onset: 02/05/2006 Hyperlipidemia Pj Flores RPA Onset: 05/30/2012 Essential hypertension Aashish Jane M.D. Onset: 2014 Essential hypertension Aashish Jane M.D. Onset: 2014 Lumbosacral radiculopathy Aashish Jane M.D. Onset: 11/2017 Social History Type Date Description Comments Sex Unknown Tobacco Use Start: Unknown Never Smoked Cigarettes ETOH Use Beer 1-5 nightly Tobacco Use Start: Unknown Patient has never smoked Exercise Type/Frequency exercises sporadically Allergies and adverse reactions Description No Known Drug Allergies Medications Active Medications SIG Qnty Indications Ordering Provide r Date Tamsulosin HCL 0.4mg Capsules Take One Capsule By Mouth AT Bedtime 90caps Aashish Jane M .D. 07/04/2021 [place] 5-325mg Tablets 1 tab by mouth two times a day as needed [id number] 60tabs Aashish Jane M.D. 06/08/[address] 1 by mouth every day 90Aashish Peñaloza M.D. 02/08/20 21 Lorazepam 0.5mg Tablets 1 tab by mouth 1 hour prior to procedure- no driving [id number] 1tabs Aashish Mas M.D. 11/05/2020 Tessalon Perles 100mg Capsules one by mouth three times a day as needed 30Zachary Peñaloza M.D. 08/16/2020 Fenofibrate 145mg Tablets take one tablet by mouth every day 30taAashish Browning M.D. 01/17 Losartan Potassium 100mg Tablets take one tablet by mouth every day maximum daily dose = 1 90Aashish Beasley M.D. 12/06/[address] [id number] Part take one to two capsules by mouth with snacks/meals every day 180Aashish Peñaloza M.D. 11/21/2016 Baclofen 20mg Tablets Take One Tablet By Mouth Three Times A Day Maximum Daily Dose = 3 Tablets 90Aashish Beasley M.D. 09/07/2015 Amitriptyline HCL 50mg Tablets Take One Tablet By Mouth Daily AT Bedtime 90Aashish Beasley M.D. 10/13/2014 Atenolol 50mg Tablets Take One Tablet By Mouth Every Day 90Aashish Beasley M.D. 08/05/20 13 Docusate Sodium 100mg Capsules 1 po bid 60caps Unknown Medications Administered in Office Medication SIG Qnty Indications Ordering Provider Date Injection (SC)/(Im) Injection Aashish Jane M.D. 08/09/2015 Injection (SC)/(Im) Injection Ulysses Ortega D.O., [facility] 06/08/2015 Injection (SC)/(Im) Injection Aashish Jane M.D. 07/21/2014 Injection (SC)/(Im) Injection Divine Duran FUR DYER- 01/04/2012 Immunizations CPT Code Status Date Vaccine Lot # [id number] Given 07/06/2021 Influenza Virus Vaccine, Quadrivalent, Slit Virus, Im Use 3Y & Up [id number] 62355 Given 06/23/2020 Influenza Virus Vaccine, Quadrivalent, Slit Virus, Im Use 3Y & Up [id number] 31418 Given 07/04/2019 Influenza Virus Vaccine, Quadrivalent, Slit Virus, Im Use 3Y & Up [id number] 94290 Given 06/26/2018 Influenza Virus Vaccine, Quadrivalent, Slit Virus, Im Use 3Y & Up [id number] 41209 Given 07/16/2017 Influenza Virus Vaccine, Quadrivalent, Slit Virus, Im Use 3Y & Up [id number] 94750 Given 07/26/2016 Influenza Virus Vaccine, Quadrivalent, Slit Virus, Im Use 3Y & Up [id number] 69949 Given 08/09/2015 Influenza Vaccin e (Fluzone) 3Yrs Of Age Or Older Medicare Plans [id number] 28717 Given 08/09/2015 Influenza Virus Vac. Split Virus Individuals 3 Years And Above 05453 Given 06/08/2015 Tdap Tetanus,Dip htheria Toxoids/Acellular Pertussis 7Yrs Or Older [id number] 83918 Given 07/21/2014 Influenza Virus Vac. Split Virus Individuals 3 Years And Above [id number] Vital Signs Date Vital Result Comment 08/01/2021 10:02am BP Systolic 140 mmHg BP Diastolic 70 mmHg Body Temperature 97.7 F Heart Rate 81 /min Respiratory Rate 16 /min Height 71 inches 5'11" Weight 201.00 lb [place] Body Weight 172 lb BMI (Body Mass Index) 28.0 kg/m2 O2 % BldC Oximetry 98 % 02/07/2021 9:56am BP Systolic 124 mmHg BP Diastolic 80 mmHg Body Temperature 98.0 F Heart Rate 100 /min Respiratory Rate 18 /min Height 71 inches 5'11" Weight 198.00 lb [place] Body Weight 172 lb BMI (Body Mass Index) 27.6 kg/m2 O2 % BldC Oximetry 97 % Results Test Acquired Date Facility Test Result H/L Range Note CMP 08/01/2021 [facility] Glu 103 mg/dL 70 - 110 1 BUN 10 mg/dL 8 - 23 Creat 0.8 mg/dL 0.7 - 1.2 BUN/Creatinine Ratio 12.9 CALC Na 139 mmol/L 136 - 145 K 4.3 mmol/L 3.5 - 5.1 CL 104.0 mmol/L 98.0 - 107.0 Co2 19.0 mmol/L Low 22.0 - 29.0 CA 8.9 mg/dL 8.6 - 10.2 TP 6.9 g/dL 6.6 - 8.7 Alb 4.3 g/dL 3.5 - 5.2 A/G Ratio 1.7 CALC Globulin 2.6 CALC Alp 116.0 U/L 40 - 129 Alt (SGPT) 42 U/L High 0 - 41 Ast (Sgot) 54 U/L High 0 - 40 Tbili 0.35 mg/dL 0.0 - 1.2 Osmolality-Calculated 276.7 CALC Anion Gap 20 mmol/L eGFR 112 # Calc 2 eGFR Non-Afr. [place] 96 # Calc 3 Lipid Panel 08/01/2021 [facility] Chol 264 mg/dL High 0 - 200 Trig 321 mg/dL High 35 - 200 HDL 73 mg/dL High 35 - 55 LDL_C 127 Calc 75 - 129 Cho/HDL Ratio 3.6 Calc CBC 08/01/2021 [facility] WBC 5.9 10E3/uL 4.1 - 10.9 RBC 4.20 10E6/uL 4.20 - 6.30 HGB 13.4 g/dL 12.0 - 18.0 HCT 40.1 % 37.0 - 51.0 MCV 95.5 fL 80.0 - 97.0 MCH 31.9 pg 26.0 - 32.0 MCHC 33.4 g/dL 31.0 - 36.0 PLT 247 10E3/uL 140 - 440 RDW-CV 12.2 % 11.5 - 14.5 Lym% 27.5 % 10.0 - 58.5 Neut% 65.6 % 37.0 - 92.0 MXD% 6.9 % 0.1 - 24.0 Lym# 1.6 10E3/uL 0.6 - 4.1 Neut# 3.9 % 2.0 - 7.8 MXD# 0.4 10E3/uL 0.0 - 1.8 MPV 9.4 fL 9.0 - 13.0 CMP 03/10/2021 [facility] Glu 123 mg/dL High 70 - 110 4 BUN 10 mg/dL 8 - 23 Creat 0.8 mg/dL 0.7 - 1.2 BUN/Creatinine Ratio 12.1 CALC Na 136 mmol/L 136 - 145 K 3.9 mmol/L 3.5 - 5.1 CL 99.9 mmol/L 98.0 - 107.0 Co2 21.7 mmol/L Low 22.0 - 29.0 CA 9.1 mg/dL 8.6 - 10.2 TP 7.1 g/dL 6.6 - 8.7 Alb 4.4 g/dL 3.5 - 5.2 A/G Ratio 1.6 CALC Globulin 2.7 CALC Alp 164.4 U/L High 40 - 129 Alt (SGPT) 78 U/L High 0 - 41 Ast (Sgot) 105 U/L High 0 - 40 Tbili 1.20 mg/dL 0.0 - 1.2 Osmolality-Calculated 273.1 CALC Anion Gap 19 mmol/L eGFR 112 # Calc 5 eGFR Non-Afr. [place] 96 # Calc 6 CMP 02/07/2021 [facility] Glu 137 mg/dL High 70 - 110 7 BUN 11 mg/dL 8 - 23 Creat 0.8 mg/dL 0.7 - 1.2 BUN/Creatinine Ratio 15.0 CALC Na 136 mmol/L 136 - 145 K 3.9 mmol/L 3.5 - 5.1 CL 98.9 mmol/L 98.0 - 107.0 Co2 21.7 mmol/L Low 22.0 - 29.0 CA 9.5 mg/dL 8.6 - 10.2 TP 6.8 g/dL 6.6 - 8.7 Alb 4.3 g/dL 3.5 - 5.2 A/G Ratio 1.7 CALC Globulin 2.5 CALC Alp 157.8 U/L High 40 - 129 Alt (SGPT) 210 U/L High 0 - 41 Ast (Sgot) 287 U/L High 0 - 40 Tbili 2.02 mg/dL High 0.0 - 1.2 Osmolality-Calculated 273.4 CALC Anion Gap 19 mmol/L eGFR 112 # Calc 8 eGFR Non-Afr. [place] 96 # Calc 9 Lipid Panel 02/07/2021 [facility] Chol 292 mg/dL High 0 - 200 Trig 580 mg/dL High 35 - 200 HDL 37 mg/dL 35 - 55 LDL_C UNABLE TO CALC. Calc Abnormal 75 - 129 Cho/HDL Ratio 8.0 Calc Laboratory test finding 02/07/2021 [facility] [place] Amylase 51 U/L 31-110 Lipase 56 U/L 13-78 1 NORMAL RANGES Age WBC RBC HGB HCT MCV PLT Adult M 4.1-10.9 4.20-6.30 12.0-18.0 37.0-51.0 80-97 140-440 Adult F 4.1-10.9 4.04-5.48 12.0-18.0 37.0-51.0 80-97 140-440 0 -1 Yr 5.0-20.0 3.9-5.9 15-18 MV: 44 MV: 91 MV: 277 2-9 Yr. 6.0-17.0 3.8-5.4 11-13 MV: 37 MV: 78 MV: 300 10 Yrs. 5.0-13.0 3.8-5.4 12-15 MV: 39 MV: 80 MV: 250 NOTE: * FOR ADULT BLACK MALES AND FEMALES, NORMAL WBC IS 2.9-7.7 K/ML * FOR ADULT BLACK MALES AND FEMALES, NORMAL RBC,HGB, AND HCT IS 5% LESS SOURCE FOR DATA: [id number] 1800 OPERATION MANUAL( AUTOMATED BLOOD COUNTS AND DIFF.) APPENDIX B-3 CHRONIC KIDNEY DISEASE STAGING PER NKF: MALE GFR INTERPRETATION: 20-49 YRS: >60 mL/min Normal 50-59 YRS: >56 mL/min Normal 60-69 YRS: >49 mL/min Normal 70-79 YRS: >42 mL/min Normal 80 and above >35 mL/min Normal FEMALE GRF INTERPRETATION: 20-39 YRS: >60 mL/min Normal 40-49 YRS: >58 mL/min Normal 50-59 YRS: >51 mL/min Normal 60-69 YRS: >45 mL/min Normal 70-79 YRS: >39 mL/min Normal 80 and above >32 mL/min NormalCLASSIFICATION CHOLESTEROL FOR ADULTS CHILDREN/ADOLESCENTS* DESIRABLE: <200 MG/DL <170 MG/DL BORDER-LINE HIGH RISK: 200-239 MG/DL 170-199 MG/DL HIGH RISK: >240 MG/DL >200 MG/DL CLASS. FOR PRIMARY LDL CHOL PREVENTION: LDL CHOL-CHILD/ADOLESCENTS* DESIRABLE: <130 MG/DL <110 MG/DL BORDERLINE-HIGH RISK: 130-159 MG/DL 110-129 MG/DL HIGH RISK: >160 MG/DL >130 MG/DL *CHILDREN AND ADOLESCENTS REPRESENTS INDIVIDUALA AGED 2-19 YEARS EXCLUSIVE. 2 CKD-EPI 3 CKD-EPI 4 CHRONIC KIDNEY DISEASE STAGI NG PER NKF: MALE GFR INTERPRETATION: 20-49 YRS: >60 mL/min Normal 50-59 YRS: >56 mL/min Normal 60-69 YRS: >49 mL/min Normal 70-79 YRS: >42 mL/min Normal 80 and above >35 mL/min Normal FEMALE GRF INTERPRETATION: 20-39 YRS: >60 mL/min Normal 40-49 YRS: >58 mL/min Normal 50-59 YRS: >51 mL/min Normal 60-69 YRS: >45 mL/min Normal 70-79 YRS: >39 mL/min Normal 80 and above >32 mL/min Normal 5 CKD-EPI 6 CKD-EPI 7 CHRONIC KIDNEY DISEASE STAGI NG PER NKF: MALE GFR INTERPRETATION: 20-49 YRS: >60 mL/min Normal 50-59 YRS: >56 mL/min Normal 60-69 YRS: >49 mL/min Normal 70-79 YRS: >42 mL/min Normal 80 and above >35 mL/min Normal FEMALE GRF INTERPRETATION: 20-39 YRS: >60 mL/min Normal 40-49 YRS: >58 mL/min Normal 50-59 YRS: >51 mL/min Normal 60-69 YRS: >45 mL/min Normal 70-79 YRS: >39 mL/min Normal 80 and above >32 mL/min NormalCLASSIFICATION CHOLESTEROL FOR ADULTS CHILDREN/ADOLESCENTS* DESIRABLE: <200 MG/DL <170 MG/DL BORDER-LINE HIGH RISK: 200-239 MG/DL 170-199 MG/DL HIGH RISK: >240 MG/DL >200 MG/DL CLASS. FOR PRIMARY LDL CHOL PREVENTION: LDL CHOL-CHILD/ADOLESCENTS* DESIRABLE: <130 MG/DL <110 MG/DL BORDERLINE-HIGH RISK: 130-159 MG/DL 110-129 MG/DL HIGH RISK: >160 MG/DL >130 MG/DL *CHILDREN AND ADOLESCENTS REPRESENTS INDIVIDUALA AGED 2-19 YEARS EXCLUSIVE. 8 CKD-EPI 9 CKD-EPI Procedures Date Code Description Status 08/01/2021 74551 Office/Outpatient Established Mo d MDM 30-39 Min Completed 02/07/2021 37746 Office/Outpatient Established Mo d MDM 30-39 Min Completed Medical Devices Description No Information Available Encounters Type Date Location Provider Dx Diagnosis Office Visit 08/01/2021 10:00a [place] [facility] Aashish Jane M. D. E78.5 Hyperlipidemia, unspecified M48.00 Spinal stenosis, site unspec ified I10 Essential (primary) hyperten alysia F33.0 Major depressive disorder, r ecurrent, mild K86.1 Other chronic pancreatitis Office Visit 02/07/2021 10:00a [place] [facility] Aashish Jane M. D. M48.00 Spinal stenosis, site unspecified I10 Essential (primary) hyperten alysia F33.0 Major depressive disorder, r ecurrent, mild E78.5 Hyperlipidemia, unspecified K86.1 Other chronic pancreatitis Assessments Date Code Description Provider 08/01/2021 E78.5 Hyperlipidemia, unspecified [facility] helAashish cosme M.D. 08/01/2021 M48.00 Spinal stenosis, site unspecifie d Aashish Jane M.D. 08/01/2021 I10 Essential (primary) hypertension Aashish Jane M.D. 08/01/2021 F33.0 Major depressive disorder, recur rent, mild Aashish Jane M.D. 08/01/2021 K86.1 Other chronic pancreatitis Aashish Cole M.D. 07/06/2021 Z23 Encounter for immunization Aashish Cole M.D. 07/06/2021 Z23 Encounter for immunization Nurse s Schedule 03/10/2021 E78.5 Hyperlipidemia, unspecified [facility] 03/10/[facility]21 E78.5 Hyperlipidemia, unspecified [facility] [place] Schedule 02/07/2021 M48.00 Spinal stenosis, site unspecifie d Aashish Jane M.D. 02/07/2021 I10 Essential (primary) hypertension Aashish Jane M.D. 02/07/2021 F33.0 Major depressive disorder, recur rent, mild Aashish Jane M.D. 02/07/2021 E78.5 Hyperlipidemia, unspecified [facility] helAashish cosme M.D. 02/07/2021 K86.1 Other chronic pancreatitis Kun Aashish tavera M.D. Plan of Treatment 03/06/2006 - Kamlesh Watson M.D.* 592.0 Calculus Of Kidney * 535.50 Gastritis Gastroduodenitis W/O Hem * 599.7 Hematuria* Follow up:* . Functional Status Description No Information Available Mental Status Description No Information Available Referrals Description No Information Available
--- OUTSIDE RECORDS SUMMARY | 2021-08-03 15:00 | CCD ---
Continuity of Care Document (CCD) Created on: 08/01/2021 Joao Brenner External Reference #: [id number] : 1960 Sex: Male Author Author Joao JANE M.D. Organization Unknown Address [address] [facility] [address] [place] [address] Phone [phone] Care Team Providers Care Paint Prepper Name Role Phone Ulysses Ortega D.O. AUTM [phone] Jonel Sánchez M.D. AUTM [phone] Problems Active Problems Provider Date Benign essential [...] Bedtime 90caps Aashish Jane M .D. 07/04/2021 [place] 5-325mg Tablets 1 tab by mouth two times a day as needed [id number] 60tabs Aashish Jane M.D. 06/08/[address] 1 by mouth every day 90Aashish Peñaloza M.D. 02/08/20 21 Lorazepam 0.5mg Tablets 1 tab by mouth 1 hour prior to procedure- no driving [id number] 1tabs Aashish Mas M.D. 11/05/2020 Tessalon Perles 100mg Capsules one by mouth three times a day as needed 30Zachary Peñaloza M.D. 08/16/2020 Fenofibrate 145mg Tablets take one tablet by mouth every day 30taAashish Brwoning M.D. 01/17 Losartan Potassium 100mg Tablets take one tablet by mouth every day maximum daily dose = 1 90Aashish Beasley M.D. 12/06/2016 [place]on [id number] Caps DR Part take one to two [...] 08/09/2015 Injection (SC)/(Im) Injection Ulysses Ortega D.O., [facility] 06/08/2015 Injection (SC)/(Im) Injection Aashish Jane M.D. 07/21/2014 Injection (SC)/(Im) Injection Divine Duran [facility]- 01/04/2012 Immunizations CPT Code Status Date Vaccine Lot # [id number] Given 07/06/2021 Influenza Virus Vaccine, Quadrivalent, Slit Virus, Im Use 3Y & Up [id number] 12162 Given 06/23/2020 Influenza Virus Vaccine, Quadrivalent, Slit Virus, Im Use 3Y & Up [id number] 08619 Given 07/04/2019 Influenza Virus Vaccine, Quadrivalent, Slit Virus, Im Use 3Y & Up [id number] 89587 Given 06/26/2018 Influenza Virus Vaccine, Quadrivalent, Slit Virus, Im Use 3Y & Up [id number] 93592 Given 07/16/2017 Influenza Virus Vaccine, Quadrivalent, Slit Virus, Im Use 3Y & Up [id number] 47296 Given 07/26/2016 Influenza Virus Vaccine, Quadrivalent, Slit Virus, Im Use 3Y & Up [id number] 01280 Given 08/09/2015 Influenza Vaccin e (Fluzone) 3Yrs Of Age Or Older Medicare Plans [id number] 15925 Given 08/09/2015 Influenza Virus Vac. Split Virus Individuals 3 Years And Above 66543 Given 06/08/2015 Tdap Tetanus,Dip htheria Toxoids/Acellular Pertussis 7Yrs Or Older [id number] 26402 Given 07/21/2014 Influenza Virus Vac. Split Virus Individuals 3 Years And Above [id number] Vital Signs Date Vital Result Comment 08/01/2021 10:02am BP Systolic 140 mmHg BP Diastolic 70 mmHg Body Temperature 97.7 F Heart Rate 81 /min Respiratory Rate 16 /min Height 71 inches 5'11" Weight 201.00 lb [place] Body Weight 172 lb BMI (Body Mass Index) 28.0 kg/m2 O2 % BldC Oximetry 98 % 02/07/2021 9:56am BP Systolic 124 mmHg BP Diastolic 80 mmHg Body Temperature 98.0 F Heart Rate 100 /min Respiratory Rate 18 /min Height 71 inches 5'11" Weight 198.00 lb [place] Body Weight 172 lb BMI (Body Mass Index) 27.6 kg/m2 O2 % BldC Oximetry 97 % Results Test Acquired Date Facility Test Result H/L Range Note CMP 03/10/2021 [facility] Glu 123 mg/dL High 70 - 110 1 BUN 10 mg/dL [...] Gap 19 mmol/L eGFR 112 # Calc 2 eGFR Non-Afr. Brazilian 96 # Calc 3 CMP 02/07/2021 [facility] Glu 137 mg/dL High 70 - 110 4 BUN 11 mg/dL 8 - 23 Creat [...] eGFR 112 # Calc 5 eGFR Non-Afr. Brazilian 96 # Calc 6 Lipid Panel 02/07/2021 [facility] Chol 292 mg/dL High 0 - 200 Trig 580 mg/dL High 35 - 200 HDL 37 mg/dL 35 - 55 LDL_C UNABLE TO CALC. Calc Abnormal 75 - 129 Cho/HDL Ratio 8.0 Calc Laboratory test finding 02/07/2021 [facility] [place] Amylase 51 U/L 31-110 Lipase 56 U/L 13-78 1 CHRONIC KIDNEY DISEASE STAGI NG PER NKF: [...] Normal 80 and above >32 mL/min Normal 2 CKD-EPI 3 CKD-EPI 4 CHRONIC KIDNEY [...] ADOLESCENTS REPRESENTS INDIVIDUALA AGED 2-19 YEARS EXCLUSIVE. 5 CKD-EPI 6 CKD-EPI Procedures Date Code Description Status 08/01/2021 86686 Office/Outpatient Established Mo d MDM 30-39 Min Completed 02/07/2021 01250 Office/Outpatient Established Mo d MDM 30-39 Min Completed Medical Devices Description No Information Available Encounters Type Date Location Provider Dx Diagnosis Office Visit 08/01/2021 10:00a [facility] Aashish Jane M. D. E78.5 Hyperlipidemia, unspecified M48.00 Spinal stenosis, site unspec ified I10 Essential (primary) hyperten alysia F33.0 Major depressive disorder, r ecurrent, mild K86.1 Other chronic pancreatitis Office Visit 02/07/2021 10:00a [facility] Aashish Jane M. D. M48.00 Spinal stenosis, site unspecified I10 Essential (primary) hyperten alysia F33.0 Major depressive disorder, r ecurrent, mild E78.5 Hyperlipidemia, unspecified K86.1 Other chronic pancreatitis Assessments Date Code Description Provider 08/01/2021 E78.5 Hyperlipidemia, unspecified [facility] Aashish culver M.D. 08/01/2021 M48.00 Spinal stenosis, site unspecifie d Aashish Jane M.D. 08/01/2021 I10 Essential (primary) hypertension Aashish Jane M.D. 08/01/2021 F33.0 Major depressive disorder, recur renjulius shelton Scott H, M.D. 08/01/2021 K86.1 Other chronic pancreatitis Aashish Cole M.D. 07/06/2021 Z23 Encounter for immunization Aashish Cole M.D. 07/06/2021 Z23 Encounter for immunization Nurse s Schedule 03/10/2021 E78.5 Hyperlipidemia, unspecified José Miguel Ortega, D.OEdward, FAAFP 03/10/2021 E78.5 Hyperlipidemia, unspecified [facility] Schedule 02/07/2021 M48.00 Spinal stenosis, site unspecifie d Aashish Jane M.D. 02/07/2021 I10 Essential (primary) hypertension Aashish Jane M.D. 02/07/2021 F33.0 Major depressive disorder, recur rentjulius Scott H, M.D. 02/07/2021 E78.5 Hyperlipidemia, unspecified [facility] Aashish culver M.D. 02/07/2021 K86.1 Other chronic pancreatitis Aashish Cole M.D. Plan of Treatment 03/06/2006 - Kamlesh Watson M.D.* 592.0 Calculus Of Kidney * 535.50 Gastritis Gastroduodenitis W/O Hem * 599.7 Hematuria* Follow up:* . Functional Status Description No Information Available Mental Status Description No Information Available Referrals Description No Information Available
--- OUTSIDE RECORDS SUMMARY | 2021-08-03 15:00 | CCD ---
Continuity of Care Document (CCD) Created on: 07/12/2021 Jordin Joao Lorenza External Reference #: [id number] : [id number] Sex: Male Author Author Nurses Joao Mace Organization Unknown Address [address] [facility] [address] [place] [address] Phone Unavailable Care Team Providers Care Belt Repairer Name Role Phone JordanGrzegorzUlyssesdevonte Arevalo AUTM [phone] Jonel Sánchez M.D. AUTM [phone] Problems Active Problems Provider Date Benign essential [...] has never smoked Exercise Type/Frequency exercises sporadically Allergies, Adverse Reactions, Alerts Description No Known Drug Allergies Medications Active Medications SIG Qnty Indications Ordering Provide r Date Tamsulosin HCL 0.4mg Capsules Take One Capsule By Mouth AT Bedtime 90caps Aashish Jane M .D. 07/04/2021 [place] 5-325mg Tablets 1 tab by mouth two times a day as needed [id number] 60tabs Aashish Jane M.D. 06/08/2021 Omeprazole 40mg Capsules 1 by mouth every day 90Aashish Peñaloza M.D. 02/08/20 21 Lorazepam 0.5mg Tablets 1 tab by mouth 1 hour prior to procedure- no driving [id number] 1tabs Aashish Mas M.D. 11/05/2020 Tessalon Perles 100mg Capsules one by mouth three times a day as needed 30Zachary Peñaloza M.D. 08/16/2020 Fenofibrate 145mg Tablets take one tablet by mouth every day 30Aashish Beasley M.D. 01/17 Losartan Potassium 100mg Tablets take one tablet by mouth every day maximum daily dose = 1 90Aashish Beasley M.D. 12/06/2016 [place] [address]Dfin Caps [address] [place] take one to two capsules by mouth [...] 08/09/2015 Injection (SC)/(Im) Injection Ulysses Ortega D.O., [facility] 06/08/2015 Injection (SC)/(Im) Injection Aashish Jane M.D. 07/21/2014 Injection (SC)/(Im) Injection Divine Duran [facility]- 01/04/2012 Immunizations CPT Code Status Date Vaccine Lot # [id number] Given 07/06/2021 Influenza Virus Vaccine, Quadrivalent, Slit Virus, Im Use 3Y & Up [id number] 73436 Given 06/23/2020 Influenza Virus Vaccine, Quadrivalent, Slit Virus, Im Use 3Y & Up [id number] 49150 Given 07/04/2019 Influenza Virus Vaccine, Quadrivalent, Slit Virus, Im Use 3Y & Up [id number] 66500 Given 06/26/2018 Influenza Virus Vaccine, Quadrivalent, Slit Virus, Im Use 3Y & Up [id number] 19262 Given 07/16/2017 Influenza Virus Vaccine, Quadrivalent, Slit Virus, Im Use 3Y & Up [id number] 17596 Given 07/26/2016 Influenza Virus Vaccine, Quadrivalent, Slit Virus, Im Use 3Y & Up [id number] 09083 Given 08/09/2015 Influenza Vaccin e (Fluzone) 3Yrs Of Age Or Older Medicare Plans [id number] 31495 Given 08/09/2015 Influenza Virus Vac. Split Virus Individuals 3 Years And Above 68251 Given 06/08/2015 Tdap Tetanus,Dip htheria Toxoids/Acellular Pertussis 7Yrs Or Older [id number] 90974 Given 07/21/2014 Influenza Virus Vac. Split Virus Individuals 3 Years And Above [id number] Vital Signs Date Vital Result Comment 02/07/2021 9:56am BP Systolic 124 mmHg BP Diastolic 80 mmHg Body Temperature 98.0 F Heart Rate 100 /min Respiratory Rate 18 /min Height 71 inches 5'11" Weight 198.00 lb [place] Body Weight 172 lb BMI (Body Mass Index) 27.6 kg/m2 O2 % BldC Oximetry 97 % 10/06/2020 3:04pm BP Systolic 124 mmHg BP Diastolic 84 mmHg Body Temperature 98.2 F Heart Rate 92 /min Respiratory Rate 16 /min Height 71 inches 5'11" Weight 202.50 lb [place] Body Weight 172 lb BMI (Body Mass Index) 28.2 kg/m2 O2 % BldC Oximetry 96 % Results Test Acquired Date Facility Test [...] eGFR 112 # Calc 2 eGFR Non-Afr. Guamanian 96 # Calc 3 CMP 02/07/2021 [facility] [...] eGFR 112 # Calc 5 eGFR Non-Afr. Gu[place]ian 96 # Calc 6 Lipid Panel 02/07/2021 [...] 6 CKD-EPI Procedures Date Code Description Status 02/07/2021 61045 Office/Outpatient Established Mo d MDM 30-39 Min Completed Medical Devices Description No Information Available Encounters Type Date Location Provider Dx Diagnosis Office Visit 02/07/2021 10:00a [facility] Aashish Jane M. D. M48.00 Spinal stenosis, site unspecified I10 Essential (primary) hyperten alysia F33.0 Major depressive disorder, r ecurrent, mild E78.5 Hyperlipidemia, unspecified K86.1 Other chronic pancreatitis Assessments Date Code Description Provider 07/06/2021 Z23 Encounter for immunization Aashish Cole M.D. 07/06/2021 Z23 Encounter for immunization Nurse s Schedule 03/10/2021 E78.5 Hyperlipidemia, unspecified José Miguel hamilton Ortega D.O., FAAFP 03/10/2021 E78.5 Hyperlipidemia, unspecified [facility] [place] Schedule 02/07/2021 M48.00 Spinal stenosis, site unspecifie d Aashish Jane M.D. 02/07/2021 I10 Essential (primary) hypertension Aashish Jane M.D. 02/07/2021 F33.0 Major depressive disorder, recur rent, mild Aashish Jane M.D. 02/07/2021 E78.5 Hyperlipidemia, unspecified [facility] helAashish cosme M.D. 02/07/2021 K86.1 Other chronic pancreatitis Aashish Cole M.D. Plan of Treatment Future Appointment(s):* 07/19/2021 11:15 am - [facility]ish [facility] M.D. at [facility] 03/06/2006 - Kamlesh Watson M.D.* 592.0 Calculus Of Kidney * 535.50 Gastritis Gastroduodenitis W/O Hem * 599.7 Hematuria* Follow up:* . Functional Status Description No Information Available Mental Status Description No Information Available Referrals Description No Information Available
--- OUTSIDE RECORDS SUMMARY | 2021-08-03 15:01 | CCD ---
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 Care Crm Specialist Name Role Phone Stacy, A Khalid Unavailable [phone] Stacy, A Khalid Unavailable [phone] Stacy, A Khalid Unavailable [phone] Stacy, A Khalid Unavailable [phone] Stacy, A Khalid Unavailable [phone] Stacy, A Khalid Unavailable [phone] Stacy, A Khalid Unavailable [phone] Stacy, A Khalid Unavailable [phone] Stacy, A Khalid Unavailable [phone] Stacy, A Khalid Unavailable +[phone] Stacy, A Khalid Unavailable [phone] Stacy, A Khalid Unavailable +[phone] Stacy, A Khalid Unavailable [phone] Stacy, A Khalid Unavailable +[phone] Stacy, A Khalid Unavailable +[phone] Stacy, A Khalid Unavailable +[phone] Stacy, A Khalid Unavailable [phone] Stacy, A Khalid Unavailable +[phone] Stacy, A Khalid Unavailable +[phone] Stacy, A Khalid Unavailable +[phone] Stacy, A Khalid Unavailable +[phone] Stacy, A Khalid Unavailable [phone] Stacy, A Khalid Unavailable +[phone] Stacy, A Khalid Unavailable +[phone] Stacy, A Khalid Unavailable [phone] Stacy, A Khalid Unavailable [phone] Stacy, A Khalid Unavailable +[phone] Stacy, A Khalid Unavailable [phone] Stacy, A Khalid Unavailable +[phone] Stacy, A Khalid Unavailable +[phone] Stacy, A Khalid Unavailable [phone] Stacy, A Khalid Unavailable +[phone] Stacy, A Khalid Unavailable +[phone] Stacy, A Khalid Unavailable [phone] Stacy, A Khalid Unavailable +[phone] Stacy, A Khalid Unavailable +[phone] Stacy, A Khalid Unavailable +[phone] Stacy, A Khalid Unavailable +[phone] Stacy, A Khalid Unavailable [phone] Stacy, A Khalid Unavailable [phone] Ziyad SANDS MD Unavailable Unavailable Ziyad SANDS MD Unavailable Unavailable Ziyad SANDS MD Unavailable Unavailable Ziyad SANDS MD Unavailable Unavailable Ziyad SANDS MD Unavailable Unavailable Ziyad SANDS MD Unavailable Unavailable Ziyad SANDS MD Unavailable Unavailable Ziyad SANDS MD Unavailable Unavailable Ziyad SANDS MD Unavailable Unavailable Ziyad SANDS MD Unavailable Unavailable Ziyad SANDS MD Unavailable Unavailable Ziyad SANDS MD Unavailable Unavailable Ziyad SANDS MD Unavailable Unavailable Ziyad SANDS MD Unavailable Unavailable Ziyad SANDS MD Unavailable Unavailable Ziyad SANDS MD Unavailable Unavailable Ziyad SANDS MD Unavailable Unavailable Ziyad SANDS MD Unavailable Unavailable Ziyad SANDS MD Unavailable Unavailable SHAVON, H SUNITA MD Unavailable Unavailable SHAVON, H SUNITA MD Unavailable Unavailable SHAVON, H SUNITA MD Unavailable Unavailable SHAVON, H SUNITA MD Unavailable Unavailable SHAVON, H SUNITA MD Unavailable Unavailable SHAVON, H SUNITA MD Unavailable Unavailable SHAVON, H SUNITA MD Unavailable Unavailable SHAVON, H SUNITA MD Unavailable Unavailable SHAVON, H SUNITA MD Unavailable Unavailable SHAVON, H SUNITA MD Unavailable Unavailable SHAVON, H SUNITA MD Unavailable Unavailable SHAVON, H SUNITA MD Unavailable Unavailable SHAVON, H SUNITA MD Unavailable Unavailable SHAVON, H SUNITA MD Unavailable Unavailable SHAVON, H SUNITA MD Unavailable Unavailable SHAVON, H SUNITA MD Unavailable Unavailable SHAVON, H SUNITA MD Unavailable Unavailable SHAVON, H SUNITA MD Unavailable Unavailable SHAVON, H SUNITA MD Unavailable Unavailable SHAVON, H SUNITA MD Unavailable Unavailable SHAVON, H SUNITA MD Unavailable Unavailable SHAVON, H SUNITA MD Unavailable Unavailable SHAVON, H SUNITA MD Unavailable Unavailable SHAVON, H SUNITA MD Unavailable Unavailable SHAVON, H SUNITA MD Unavailable Unavailable SHAVON, H SUNITA MD Unavailable Unavailable SHAVON, H SUNITA MD Unavailable Unavailable SHAVON, H SUNITA MD Unavailable Unavailable SHAVON, H SUNITA MD Unavailable Unavailable SHAVON, H SUNITA MD Unavailable Unavailable SHAVON, H SUNITA MD Unavailable Unavailable SHAVON, H SUNITA MD Unavailable Unavailable SHAVON, H SUNITA MD Unavailable Unavailable SHAVON, H SUNITA MD Unavailable Unavailable SHAVON, H SUNITA MD Unavailable Unavailable SHAVON, H SUNITA MD Unavailable Unavailable SHAVON, H SUNITA MD Unavailable Unavailable SHAVON, H SUNITA MD Unavailable Unavailable SHAVON, H SUNITA MD Unavailable Unavailable SHAVON, H SUNITA MD Unavailable Unavailable SHAVON, H SUNITA MD Unavailable Unavailable SHAVON, H SUNITA MD Unavailable Unavailable SHAVON, H SUNITA MD Unavailable Unavailable SHAVON, H SUNITA MD Unavailable Unavailable SHAVON, H SUNITA MD Unavailable Unavailable SHAVON, H SUNITA MD Unavailable Unavailable SHAVON, H SUNITA MD Unavailable Unavailable SHAVON, H SUNITA MD Unavailable Unavailable SHAVON, H SUNITA MD Unavailable Unavailable SHAVON, H SUNITA MD Unavailable Unavailable SHAVON, H SUNITA MD Unavailable Unavailable SHAVON, H SUNITA MD Unavailable Unavailable SHAVON, H SUNITA MD Unavailable Unavailable SHAVON, H SUNITA MD Unavailable Unavailable SHAVON, H SUNITA MD Unavailable Unavailable SHAVON, H SUNITA MD Unavailable Unavailable SHAVON, H SUNITA MD Unavailable Unavailable Re-disclosure Warning The records that you are about to access may contain information from federally-assisted alcohol or drug abuse programs. If such information is present, then the following federally mandated warning applies: This information has been disclosed to you from records protected by federal confidentiality rules (42 CFR part 2). The federal rules prohibit you from making any further disclosure of this information unless further disclosure is expressly permitted by the written consent of the person to whom it pertains or as otherwise permitted by 42 CFR part 2. A general authorization for the release of medical or other information is NOT sufficient for this purpose. The Federal rules restrict any use of the information to criminally investigate or prosecute any alcohol or drug abuse patient.The records that you are about to access may contain highly sensitive health information, the redisclosure of which is protected by Article 27-F of the [facility] Public Health law. If you continue you may have access to information: Regarding HIV / AIDS; Provided by facilities licensed or operated by the [facility] Office of Mental Health; or Provided by the [facility] Office for People With Developmental Disabilities. If such information is present, then the following [facility] mandated warning applies: This information has been disclosed to you from confidential records which are protected by state law. State law prohibits you from making any further disclosure of this information without the specific written consent of the person to whom it pertains, or as otherwise permitted by law. Any unauthorized further disclosure in violation of state law may result in a fine or retirement sentence or both. A general authorization for the release of medical or other information is NOT sufficient authorization for further disc losure. Allergies and Adverse Reactions Type Description Substance Reaction Status Data Source(s ) Propensity to adverse reactions NO KNOWN ALLERGIES NO KNOWN ALLERGIES [facility] Propensity to adverse reactions ALLERGIES NOT ON FILE ALLERGIES NOT O N FILE [facility] Family History Family Member Name Family Member Gender Family Member Status Date o f Status Description Data Source(s) Unknown Male Diagnosis 08/22/2018 12:00:00 AM EST [facility] ([facility]) Unknown Female Problem [facility] ([facility], ) Unknown Female Encounters Encounter Providers Location Date Indications Data Source(s ) Outpatient Attender: SUNITA [facility] 10:00:00 AM EDT [facility] ([facility] Outpatient Attender: SUNITA [facility] 10:00:00 AM EDT [facility] ([facility] Outpatient Attender: Karthik Kumar 11:30:38 AM EST - 11/17/2020 12:08:31 PM EST Neck Pain [facility] Neck Pain Patient discharged. Outpatient 11/17/2020 10:44:47 AM EST - 021 11:59:00 PM EST [facility] Patient discharged. Outpatient Attender: Karthik Kumar 0 12:40:51 PM EST - 10/11/2020 01:46:54 PM EST Neck Pain [facility] Neck Pain Patient discharged. Outpatient Attender: SUNITA SANDS MD [place] [facility] 10:15:00 AM EST [facility] ([facility] 09/20/2020 08:37:00 AM EST [facility] Outpatient Attender: SUNITA SANDS MD [place] [facility] 11/2019 10:15:00 AM EST [facility] ([facility] Outpatient Attender: SUNITA SANDS MD [place] [facility] 06/2020 09:15:00 AM EDT [facility] ([facility] Immunizations Vaccine Date Status Description Data Source(s) New in 2012. IIV4 07/06/2021 09:22:00 AM EDT completed [facility] ([facility] New in 2012. IIV4 06/23/2020 10:55:00 AM EDT completed [facility] ([facility] Medications Medication Brand Name Start Date Product Form Dose Route Admi nistrative Instructions Pharmacy Instructions Status Indications Reaction Description Data Source(s) Acetaminophen 325 MG / Hydrocodone Bitartrate 5 MG Ora [facility] Tablet 5-325 mg HYDROCODONE/ACETAMINOPHEN 07/09/2021 12:00:00 AM EDT tablet 60 TAKE ONE TABLET BY MOUTH TWICE A DAY NEEDED MAXIMUM DAILY DOSE = 2 TAKE ONE TABLET BY MOUTH TWICE A DAY NEEDED MAXIMUM DAILY DOSE = 2 SOLD: 07/09/2021 [facility] 0.4 mg 07/05/2021 12:00:00 AM EDT capsule 90 TAKE ONE CAPSULE BY MOUTH AT BEDTIME TAKE ONE CAPSULE BY MOUTH AT BEDTIME SOLD: 07/26/2021 [facility] Tamsulosin hydrochloride 0.4 MG Oral Capsule Tamsulosin HCL 07/04/2021 12:00:00 AM EDT active [facility] ([facility] 50 mg 07/01/2021 12:00:00 AM EDT tablet 90 TAKE 1 TABLET BY MOUTH ONCE DAILY MAXIMUM DAILY DOSE = 1 TAKE 1 TABLET BY MOUTH ONCE DAILY MAXIMUM DAILY DOSE = 1 SOLD: 07/09/2021 [facility] Acetaminophen 325 MG / Hydrocodone Bitartrate 5 MG Ora l Tablet 5-325 mg HYDROCODONE/ACETAMINOPHEN 06/09/2021 12:00:00 AM EDT tablet 60 TAKE ONE TABLET BY MOUTH TWICE A DAY NEEDED MAXIMUM DAILY DOSE = 2 TABLETS TAKE ONE TABLET BY MOUTH TWICE A DAY NEEDED MAXIMUM DAILY DOSE = 2 TABLETS SOLD: 06/10/2021 [facility] Acetaminophen 325 MG / Hydrocodone Bitartrate 5 MG Oral Tabl et [[place]] [place] 06/08/2021 12:00:00 AM EDT ORAL active [facility] ([facility] Acetaminophen 325 MG / Hydrocodone Bitartrate 5 MG Ora l Tablet 5-325 mg HYDROCODONE/ACETAMINOPHEN 05/09/2021 12:00:00 AM EDT tablet 60 TAKE ONE TABLET BY MOUTH EVERY 8 HOURS NEEDED MAXIMUM DAILY DOSE = 2 TABLETS TAKE ONE TABLET BY MOUTH EVERY 8 HOURS NEEDED MAXIMUM DAILY DOSE = 2 TABLETS SOLD: 05/11/2021 [facility] Acetaminophen 325 MG / Hydrocodone Bitartrate 5 MG Ora l Tablet 5-325 mg HYDROCODONE/ACETAMINOPHEN 04/07/2021 12:00:00 AM EDT tablet 60 TAKE ONE TABLET BY MOUTH EVERY 8 HOURS NEEDED MAXIMUM DAILY DOSE = 2 TABLETS TAKE ONE TABLET BY MOUTH EVERY 8 HOURS NEEDED MAXIMUM DAILY DOSE = 2 TABLETS SOLD: 04/08/2021 [facility] 20 mg 04/05/2021 12:00:00 AM EDT tablet 90 TAKE ONE TABLET BY MOUTH THREE TIMES A DAY. MAXIMUM DAILY DOSE = 3 TAKE ONE TABLET BY MOUTH THREE TIMES A D AY. MAXIMUM DAILY DOSE = 3 SOLD: 06/10/2021 [facility] 20 mg 04/05/2021 12:00:00 AM EDT tablet 90 TAKE ONE TABLET BY MOUTH THREE TIMES A DAY. MAXIMUM DAILY DOSE = 3 TAKE ONE TABLET BY MOUTH THREE TIMES A D AY. MAXIMUM DAILY DOSE = 3 SOLD: 04/08/2021 [facility] 20 mg 04/05/2021 12:00:00 AM EDT tablet 90 TAKE ONE TABLET BY MOUTH THREE TIMES A DAY. MAXIMUM DAILY DOSE = 3 TAKE ONE TABLET BY MOUTH THREE TIMES A D AY. MAXIMUM DAILY DOSE = 3 SOLD: 07/09/2021 [facility] 20 mg 04/05/2021 12:00:00 AM EDT tablet 90 TAKE ONE TABLET BY MOUTH THREE TIMES A DAY. MAXIMUM DAILY DOSE = 3 TAKE ONE TABLET BY MOUTH THREE TIMES A D AY. MAXIMUM DAILY DOSE = 3 SOLD: 05/11/2021 [facility] 100 mg 03/08/2021 12:00:00 AM EDT tablet 90 TAKE ONE TABLET BY MOUTH EVERY DAY MAXIMUM DAILY DOSE = 1 TAKE ONE TABLET BY MOUTH EVERY DAY MAXIM UM DAILY DOSE = 1 SOLD: 06/21/2021 [facility] 100 mg 03/08/2021 12:00:00 AM EDT tablet 90 TAKE ONE TABLET BY MOUTH EVERY DAY MAXIMUM DAILY DOSE = 1 TAKE ONE TABLET BY MOUTH EVERY DAY MAXIM UM DAILY DOSE = 1 SOLD: 03/22/2021 [facility] Acetaminophen 325 MG / Hydrocodone Bitartrate 5 MG Ora l Tablet 5-325 mg HYDROCODONE/ACETAMINOPHEN 03/07/2021 12:00:00 AM EDT tablet 60 TAKE ONE TABLET BY MOUTH EVERY 8 HOURS NEEDED MAXIMUM DAILY DOSE = 2 TABLETS TAKE ONE TABLET BY MOUTH EVERY 8 HOURS NEEDED MAXIMUM DAILY DOSE = 2 TABLETS SOLD: 03/08/2021 [facility] 145 mg 03/04/2021 12:00:00 AM EDT tablet 30 TAKE ONE TABLET BY MOUTH EVERY DAY TAKE ONE TABLET BY MOUTH EVERY DAY SOLD: 03/08/2021 [facility] 145 mg 03/04/2021 12:00:00 AM EDT tablet 30 TAKE ONE TABLET BY MOUTH EVERY DAY TAKE ONE TABLET BY MOUTH EVERY DAY SOLD: 05/11/2021 [facility] 145 mg 03/04/2021 12:00:00 AM EDT tablet 30 TAKE ONE TABLET BY MOUTH EVERY DAY TAKE ONE TABLET BY MOUTH EVERY DAY SOLD: 07/09/2021 [facility] 145 mg 03/04/2021 12:00:00 AM EDT tablet 30 TAKE ONE TABLET BY MOUTH EVERY DAY TAKE ONE TABLET BY MOUTH EVERY DAY SOLD: 04/08/2021 [facility] 145 mg 03/04/2021 12:00:00 AM EDT tablet 30 TAKE ONE TABLET BY MOUTH EVERY DAY TAKE ONE TABLET BY MOUTH EVERY DAY SOLD: 06/10/2021 [facility] 100 mg 02/26/2021 12:00:00 AM EDT tablet 30 TAKE ONE TABLET BY MOUTH EVERY DAY (NEED APPOINTMENT FOR REFILLS) TAKE ONE TABLET BY MOUTH EVERY DAY (NEED APPOINTMENT FOR REFILLS) SOLD: 03/01/2021 [facility] 40 mg 02/07/2021 12:00:00 AM EDT capsule,delayed release (DR/EC) 90 TAKE ONE CAPSULE BY MOUTH EVERY DAY TAKE ONE CAPSULE BY MOUTH EVERY DAY SOLD: 03/01/2021 [facility] Omeprazole 40 MG Delayed Release Oral Capsule Omeprazole 02/07/2021 12:00:00 AM EDT ORAL active [facility] ([facility] 40 mg 02/07/2021 12:00:00 AM EDT capsule,delayed release (DR/EC) 90 TAKE ONE CAPSULE BY MOUTH EVERY DAY TAKE ONE CAPSULE BY MOUTH EVERY DAY SOLD: 06/10/2021 [facility] Acetaminophen 325 MG / Hydrocodone Bitartrate 5 MG Ora l Tablet 5-325 mg HYDROCODONE/ACETAMINOPHEN 02/04/2021 12:00:00 AM EDT tablet 60 TAKE ONE TABLET BY MOUTH EVERY 8 HOURS NEEDED MAXIMUM DAILY DOSE = 2 TABLETS TAKE ONE TABLET BY MOUTH EVERY 8 HOURS NEEDED MAXIMUM DAILY DOSE = 2 TABLETS SOLD: 02/04/2021 [facility] 5-325 mg 01/04/2021 12:00:00 AM EDT tablet 60 TAKE ONE TABLET BY MOUTH EVERY 8 HOURS NEEDED MAXIMUM DAILY DOSE = 2 TABLETS TAKE ONE TABLET BY MOUTH EVERY 8 HOURS NEEDED MAXIMUM DAILY DOSE = 2 TABLETS SOLD: 01/05/2021 [facility] 50 mg 01/04/2021 12:00:00 AM EDT tablet 90 TAKE ONE TABLET BY MOUTH EVERY DAY TAKE ONE TABLET BY MOUTH EVERY DAY SOLD: 01/05/2021 [facility] 50 mg 01/04/2021 12:00:00 AM EDT tablet 90 TAKE ONE TABLET BY MOUTH EVERY DAY TAKE ONE TABLET BY MOUTH EVERY DAY SOLD: 04/08/2021 [facility] 5-325 mg 12/09/2020 12:00:00 AM EST tablet 60 TAKE ONE TABLET BY MOUTH EVERY 8 HOURS NEEDED MAXIMUM DAILY DOSE = 2 TABLETS TAKE ONE TABLET BY MOUTH EVERY 8 HOURS NEEDED MAXIMUM DAILY DOSE = 2 TABLETS SOLD: 12/09/2020 [facility] Acetaminophen 325 MG / Hydrocodone Bitartrate 5 MG Ora l Tablet Hydrocodone-Acetaminophen 12/07/2020 12:00:00 AM EST active [facility] ([facility] Diazepam 5 MG Oral Tablet diazePAM (VALIUM) 5 mg table t diazePAM (VALIUM) 5 mg tablet 11/10/2020 12:00:00 AM EST completed Take 1 tab po q 1/2hr prior to procedure, may repeat 1 time. [facility] Take 1 tab po q 1/2hr prior to procedure , may repeat 1 time. Diazepam 5 MG Oral Tablet diazePAM (VALIUM) 5 mg table t diazePAM (VALIUM) 5 mg tablet 11/10/2020 12:00:00 AM EST completed Take 1 tab po q 1/2hr prior to procedure, may repeat 1 time. [facility] Take 1 tab po q 1/2hr prior to procedure , may repeat 1 time. 5-325 mg 11/10/2020 12:00:00 AM EST tablet 60 TAKE ONE TABLET BY MOUTH EVERY 8 HOURS NEEDED MAXIMUM DAILY DOSE = 2 TABLETS TAKE ONE TABLET BY MOUTH EVERY 8 HOURS NEEDED MAXIMUM DAILY DOSE = 2 TABLETS SOLD: 11/10/2020 [facility] Diazepam 5 MG Oral Tablet diazePAM (VALIUM) 5 mg table t diazePAM (VALIUM) 5 mg tablet 11/10/2020 12:00:00 AM EST completed Take 1 tab po q 1/2hr prior to procedure, may repeat 1 time. [facility] Take 1 tab po q 1/2hr prior to procedure , may repeat 1 time. 5 mg 11/06/2020 12:00:00 AM EST tablet 2 TAKE 1 TABLET BY MOUTH 1/2 HOUR BEFORE MRI, MAY REPEAT ONE DOSE MAXIMUM DAILY DOSE = 2 TABLETS TAKE 1 TABLET BY MOUTH 1/2 HOUR BEFORE MRI, MAY REPEAT ONE DOSE MAXIMUM DAILY DOSE = 2 TABLETS SOLD: 11/07/2020 [facility] Diazepam 5 MG Oral Tablet diazePAM (VALIUM) 5 mg table t diazePAM (VALIUM) 5 mg tablet 11/05/2020 12:00:00 AM EST compl eted Cervical stenosis of spinal canal Take one pill 1/2 before mri, may repeat x 1 [facility] Cervical stenosis of spinal canal Take one pill 1/2 before mri, may repeat x 1 Lorazepam 0.5 MG Oral Tablet Lorazepam 11/05/2020 12:00:00 AM EST ORAL active [facility] ([facility] Diazepam 5 MG Oral Tablet diazePAM (VALIUM) 5 mg table t diazePAM (VALIUM) 5 mg tablet 11/05/2020 12:00:00 AM EST compl eted Cervical stenosis of spinal canal Take one pill 1/2 before mri, may repeat x 1 [facility] Cervical stenosis of spinal canal Take one pill 1/2 before mri, may repeat x 1 Diazepam 5 MG Oral Tablet diazePAM (VALIUM) 5 mg table t diazePAM (VALIUM) 5 mg tablet 11/05/2020 12:00:00 AM EST compl eted Cervical stenosis of spinal canal Take one pill 1/2 before mri, may repeat x 1 [facility] Cervical stenosis of spinal canal Take one pill 1/2 before mri, may repeat x 1 5-325 mg 10/07/2020 12:00:00 AM EST tablet 60 TAKE ONE TABLET BY MOUTH EVERY 8 HOURS NEEDED MAXIMUM DAILY DOSE = 2 TAKE ONE TABLET BY MOUTH EVERY 8 HOURS NEEDED MAXIMUM DAILY DOSE = 2 SOLD: 10/07/2020 [facility] 50 mg 10/05/2020 12:00:00 AM EST tablet 90 TAKE ONE TABLET BY MOUTH EVERY DAY AT BEDTIME TAKE ONE TABLET BY MOUTH EVERY DAY AT BEDTIME SOLD: 01/04/2021 [facility] 50 mg 10/05/2020 12:00:00 AM EST tablet 90 TAKE ONE TABLET BY MOUTH EVERY DAY AT BEDTIME TAKE ONE TABLET BY MOUTH EVERY DAY AT BEDTIME SOLD: 04/08/2021 [facility] 50 mg 10/05/2020 12:00:00 AM EST tablet 90 TAKE ONE TABLET BY MOUTH EVERY DAY AT BEDTIME TAKE ONE TABLET BY MOUTH EVERY DAY AT BEDTIME SOLD: 07/26/2021 [facility] 50 mg 10/05/2020 12:00:00 AM EST tablet 90 TAKE ONE TABLET BY MOUTH EVERY DAY AT BEDTIME TAKE ONE TABLET BY MOUTH EVERY DAY AT BEDTIME SOLD: 10/06/2020 [facility] 5-325 mg 09/06/2020 12:00:00 AM EST tablet 60 TAKE ONE TABLET BY MOUTH EVERY 8 HOURS NEEDED MAXIMUM DAILY DOSE = 2 TABLETS TAKE ONE TABLET BY MOUTH EVERY 8 HOURS NEEDED MAXIMUM DAILY DOSE = 2 TABLETS SOLD: 09/06/2020 [facility] 145 mg 09/04/2020 12:00:00 AM EST tablet 30 TAKE ONE TABLET BY MOUTH EVERY DAY TAKE ONE TABLET BY MOUTH EVERY DAY SOLD: 11/07/2020 [facility] 145 mg 09/04/2020 12:00:00 AM EST tablet 30 TAKE ONE TABLET BY MOUTH EVERY DAY TAKE ONE TABLET BY MOUTH EVERY DAY SOLD: 09/06/2020 [facility] 145 mg 09/04/2020 12:00:00 AM EST tablet 30 TAKE ONE TABLET BY MOUTH EVERY DAY TAKE ONE TABLET BY MOUTH EVERY DAY SOLD: 01/04/2021 [facility] 145 mg 09/04/2020 12:00:00 AM EST tablet 30 TAKE ONE TABLET BY MOUTH EVERY DAY TAKE ONE TABLET BY MOUTH EVERY DAY SOLD: 02/04/2021 [facility] 145 mg 09/04/2020 12:00:00 AM EST tablet 30 TAKE ONE TABLET BY MOUTH EVERY DAY TAKE ONE TABLET BY MOUTH EVERY DAY SOLD: 12/06/2020 [facility] 145 mg 09/04/2020 12:00:00 AM EST tablet 30 TAKE ONE TABLET BY MOUTH EVERY DAY TAKE ONE TABLET BY MOUTH EVERY DAY SOLD: 10/06/2020 [facility] 100 mg 08/27/2020 12:00:00 AM EST tablet 90 TAKE ONE TABLET BY MOUTH EVERY DAY MAXIMUM DAILY DOSE = 1 TAKE ONE TABLET BY MOUTH EVERY DAY MAXIM UM DAILY DOSE = 1 SOLD: 12/06/2020 [facility] 100 mg 08/27/2020 12:00:00 AM EST tablet 90 TAKE ONE TABLET BY MOUTH EVERY DAY MAXIMUM DAILY DOSE = 1 TAKE ONE TABLET BY MOUTH EVERY DAY MAXIM UM DAILY DOSE = 1 SOLD: 09/06/2020 [facility] benzonatate 100 MG Oral Capsule BENZONATATE 08/16/2020 12:00:00 AM EST capsule 30 TAKE ONE CAPSULE BY MOUTH THREE TIMES A DAY NEEDED TAKE ONE CAPSULE BY MOUTH THREE TIMES A DAY NEEDED SOLD: 08/17/2020 [facility] 250 mg 08/16/2020 12:00:00 AM EST tablet 6 TAKE TWO TABLETS BY MOUTH AT ONCE ON THE FIRST DAY THEN TAKE ONE DAILY THEREAFTER DAYS 2-5 TAKE TWO TABLETS BY MOUTH AT ONCE ON THE FIRST DAY THEN TAKE ONE DAILY THEREAFTER DAYS 2-5 SOLD: 08/17/2020 [facility] benzonatate 100 MG Oral Capsule [[place]] [place] 08/16/2020 12:00:00 AM EST ORAL active M [facility] ([facility] Zithromax [place] Zithromax Z-[place] 08/16/2020 12:00:00 AM EST ORAL completed [facility] ([facility] 5-325 mg 08/07/2020 12:00:00 AM EDT tablet 60 TAKE 1 TABLET BY MOUTH EVERY 8 HOURS NEEDED MAXIMUM DAILY DOSE = 2 TABLETS TAKE 1 TABLET BY MOUTH EVERY 8 HOURS NEEDED MAXIMUM DAILY DOSE = 2 TABLETS SOLD: 08/07/2020 [facility] 5-325 mg 07/09/2020 12:00:00 AM EDT tablet 60 TAKE ONE TABLET BY MOUTH EVERY 8 HOURS NEEDED MAXIMUM DAILY DOSE = 2 TABLETS TAKE ONE TABLET BY MOUTH EVERY 8 HOURS NEEDED MAXIMUM DAILY DOSE = 2 TABLETS SOLD: 07/09/2020 [facility] 0.4 mg 06/24/2020 12:00:00 AM EDT capsule 90 TAKE ONE CAPSULE BY MOUTH AT BEDTIME TAKE ONE CAPSULE BY MOUTH AT BEDTIME SOLD: 04/08/2021 [facility] 0.4 mg 06/24/2020 12:00:00 AM EDT capsule 90 TAKE ONE CAPSULE BY MOUTH AT BEDTIME TAKE ONE CAPSULE BY MOUTH AT BEDTIME SOLD: 10/06/2020 [facility] 0.4 mg 06/24/2020 12:00:00 AM EDT capsule 90 TAKE ONE CAPSULE BY MOUTH AT BEDTIME TAKE ONE CAPSULE BY MOUTH AT BEDTIME SOLD: 01/04/2021 [facility] 0.4 mg 06/24/2020 12:00:00 AM EDT capsule 90 TAKE ONE CAPSULE BY MOUTH AT BEDTIME TAKE ONE CAPSULE BY MOUTH AT BEDTIME SOLD: 07/02/2020 [facility] Tamsulosin hydrochloride 0.4 MG Oral Capsule [[place]om[place]] Flomax 06/23/2020 12:00:00 AM EDT ORAL active [facility] ([facility] 5-325 mg 06/07/2020 12:00:00 AM EDT tablet 60 TAKE 1 TABLET BY MOUTH EVERY 8 HOURS NEEDED MAXIMUM DAILY DOSE = 2 TABLETS TAKE 1 TABLET BY MOUTH EVERY 8 HOURS NEEDED MAXIMUM DAILY DOSE = 2 TABLETS SOLD: 06/07/2020 [facility] 20 mg 05/03/2020 12:00:00 AM EDT tablet 90 TAKE ONE TABLET BY MOUTH THREE TIMES A DAY MAXIMUM DAILY DOSE = 3 TABLETS TAKE ONE TABLET BY MOUTH THREE TIMES A DAY MAXIMUM DAILY DOSE = 3 TABLETS SOLD: 09/06/2020 [facility] 20 mg 05/03/2020 12:00:00 AM EDT tablet 90 TAKE ONE TABLET BY MOUTH THREE TIMES A DAY MAXIMUM DAILY DOSE = 3 TABLETS TAKE ONE TABLET BY MOUTH THREE TIMES A DAY MAXIMUM DAILY DOSE = 3 TABLETS SOLD: 12/06/2020 [facility] 20 mg 05/03/2020 12:00:00 AM EDT tablet 90 TAKE ONE TABLET BY MOUTH THREE TIMES A DAY MAXIMUM DAILY DOSE = 3 TABLETS TAKE ONE TABLET BY MOUTH THREE TIMES A DAY MAXIMUM DAILY DOSE = 3 TABLETS SOLD: 08/07/2020 [facility] 20 mg 05/03/2020 12:00:00 AM EDT tablet 90 TAKE ONE TABLET BY MOUTH THREE TIMES A DAY MAXIMUM DAILY DOSE = 3 TABLETS TAKE ONE TABLET BY MOUTH THREE TIMES A DAY MAXIMUM DAILY DOSE = 3 TABLETS SOLD: 02/04/2021 [facility] 20 mg 05/03/2020 12:00:00 AM EDT tablet 90 TAKE ONE TABLET BY MOUTH THREE TIMES A DAY MAXIMUM DAILY DOSE = 3 TABLETS TAKE ONE TABLET BY MOUTH THREE TIMES A DAY MAXIMUM DAILY DOSE = 3 TABLETS SOLD: 06/07/2020 [facility] 20 mg 05/03/2020 12:00:00 AM EDT tablet 90 TAKE ONE TABLET BY MOUTH THREE TIMES A DAY MAXIMUM DAILY DOSE = 3 TABLETS TAKE ONE TABLET BY MOUTH THREE TIMES A DAY MAXIMUM DAILY DOSE = 3 TABLETS SOLD: 01/04/2021 [facility] 20 mg 05/03/2020 12:00:00 AM EDT tablet 90 TAKE ONE TABLET BY MOUTH THREE TIMES A DAY MAXIMUM DAILY DOSE = 3 TABLETS TAKE ONE TABLET BY MOUTH THREE TIMES A DAY MAXIMUM DAILY DOSE = 3 TABLETS SOLD: 10/06/2020 [facility] 20 mg 05/03/2020 12:00:00 AM EDT tablet 90 TAKE ONE TABLET BY MOUTH THREE TIMES A DAY MAXIMUM DAILY DOSE = 3 TABLETS TAKE ONE TABLET BY MOUTH THREE TIMES A DAY MAXIMUM DAILY DOSE = 3 TABLETS SOLD: 03/08/2021 [facility] 20 mg 05/03/2020 12:00:00 AM EDT tablet 90 TAKE ONE TABLET BY MOUTH THREE TIMES A DAY MAXIMUM DAILY DOSE = 3 TABLETS TAKE ONE TABLET BY MOUTH THREE TIMES A DAY MAXIMUM DAILY DOSE = 3 TABLETS SOLD: 11/07/2020 [facility] 20 mg 05/03/2020 12:00:00 AM EDT tablet 90 TAKE ONE TABLET BY MOUTH THREE TIMES A DAY MAXIMUM DAILY DOSE = 3 TABLETS TAKE ONE TABLET BY MOUTH THREE TIMES A DAY MAXIMUM DAILY DOSE = 3 TABLETS SOLD: 07/09/2020 [facility] 145 mg 02/17/2020 12:00:00 AM EDT tablet 30 TAKE ONE TABLET BY MOUTH EVERY DAY TAKE ONE TABLET BY MOUTH EVERY DAY SOLD: 06/07/2020 [facility] 145 mg 02/17/2020 12:00:00 AM EDT tablet 30 TAKE ONE TABLET BY MOUTH EVERY DAY TAKE ONE TABLET BY MOUTH EVERY DAY SOLD: 08/07/2020 [facility] 145 mg 02/17/2020 12:00:00 AM EDT tablet 30 TAKE ONE TABLET BY MOUTH EVERY DAY TAKE ONE TABLET BY MOUTH EVERY DAY SOLD: 07/09/2020 [facility] benzonatate 100 MG Oral Capsule [Tessalon Nanette] Tessalon P erles 02/06/2020 12:00:00 AM EDT ORAL completed [facility] ([facility] Citalopram 40 MG Oral Tablet CITALOPRAM HYDROBROMIDE 12/30/2019 12:00:00 AM EDT tablet 90 TAKE ONE TABLET BY MOUTH EVERY D AY TAKE ONE TABLET BY MOUTH EVERY DAY SOLD: 10/06/2020 [facility] Citalopram 40 MG Oral Tablet CITALOPRAM HYDROBROMIDE 12/30/2019 12:00:00 AM EDT tablet 90 TAKE ONE TABLET BY MOUTH EVERY D AY TAKE ONE TABLET BY MOUTH EVERY DAY SOLD: 07/09/2020 [facility] Citalopram 40 MG Oral Tablet Citalopram Hydrobromide 12/29/2019 12:00:00 AM EDT completed [facility] ([facility] 50 mg 10/03/2019 12:00:00 AM EST tablet 90 TAKE ONE TABLET BY MOUTH DAILY AT BEDTIME TAKE ONE TABLET BY MOUTH DAILY AT BEDTIME SOLD: 07/09/2020 [facility] Insurance Providers Payer name Policy type / Coverage type Policy ID Covered constitution party ID Covered constitution party's relationship to parkinson Policy Parkinson Plan Information 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 Compensation [id number] Self BLUE CROSS GUILLEN PLAN [id number] SP [id number] O BLUE [id number] SP [id number] BLUE CHOICE OPTIONS 7 [id number] [facility] Community Plan Commercial [id number] Self [facility] I [id number] Self [id number] [place] Part B [id number] Self MEDICARE [id number] SP [id number] MEDICARE [id number] SP [id number] A MEDICARE [id number] SP [id number] A MEDICARE MEDICAID [facility] Health Maintenance Organization (HMO) [id number] Self [place] MEDICARE PART B C [id number] S [id number] MEDICARE [id number] SP [id number] A MEDICARE [id number] SP [id number] A MEDICAID [facility]NAVAILABLE [facility]) O [id number] S [id number] MEDICARE [id number] SP [id number] SELF PAY [id number] SP [id number] UNHC COMMUNITY PLAN MCDO [id number] SP [id number] UNHC COMMUNITY PLAN [facility] [id number] SP [id number] MEDICAID [id number] 1 [id number] SELFPAY 5 UNAVAILABLE 1 UNAVAILA BLE BLUE CHOICE OPTN FHP O [id number] S [id number] EXCELLUS BCBS P [id number] S [id number] [place] [id number] SP [id number] M O UNAVAILABLE UNA[place]A BLE MEDICARE C [id number] S [id number] [facility] MEDICARE [facility] O [id number] S [id number] MEDICAID [id number] SP [id number] MEDICAID M [id number] S [id number] [place] B [id number] Self [id number] [facility] Medigap Part B [id number] Self [id number] [place] [id number] Self [id number] [place] Medicare Primary [id number] Self [id number] MEDICARE C [id number] S [id number] A [place]ID[place] PART B C [id number] S [id number] [place] Medicare Primary [id number] Self Medicaid [facility] Part B [id number] Self Problems, Conditions, and Diagnoses Code Display Name Description Problem Type Effective Dates Data Source(s) M47.816 Spondylosis without myelopathy or radicu lopathy, lumbar region Spondylosis without myelopathy or radiculopathy, lumbar region Diagnosis 11/17/2020 11:30:38 AM EST [facility] M41.20 Other idiopathic scoliosis, site unspeci fied Other idiopathic scoliosis, site unspecified Diagnosis 11/17/2020 11:30:38 AM EST [facility] Z98.1 Arthrodesis status Arthrodesis status Diagnosis 12/2020 11:30:38 AM EST [facility] Neck Pain Neck Pain Diagnosis 11/17/2020 11:30:38 AM [facility] 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, thoracic region Spondylosis without myelopathy or radiculopathy, thoracic region Diagnosis 11/17/2020 10:44:47 AM EST [facility] M48.02 Spinal stenosis, cervical region Spinal stenosis , cervical region Diagnosis 11/17/2020 10:44:47 AM EST [facility] M21.371 Foot drop, right foot Foot drop, right foot Diagnosis 10/11/2020 12:40:51 PM EST [facility] Surgeries/Procedures Procedure Description Date Indications Data Source(s) OFFICE OUTPATIENT VISIT 25 MINUTES 08/01/2021 12:00:00 AM EDT [facility] ([facility] OFFICE OUTPATIENT VISIT 25 MINUTES 02/07/2021 12:00:00 AM EDT [facility] ([facility] XR SCOLIOSIS SERIES XR SCOLIOSIS SERIES 11/17/2020 11:24:12 AM EST [facility] GENERAL SUPPLY GENERAL SUPPLY 10/11/2020 12:59:11 PM EST [facility] Results ID Date Data Source [id number] 08/01/2021 10:13:00 AM EDT [facility] ([facility] Name Value Range Interpretation Code Description Data Rosa rce(s) Supporting Document(s) WBC 5.9 10E3/uL 4.1-10.9 [facility] ([facility] NORMAL RANGES Age WBC RBC HGB HCT [...] HCT IS 5% LESS SOURCE FOR DATA: EveryScape 1800 OPERATION MANUAL( AUTOMATED BLOOD COUNTS AND [...] ADOLESCENTS REPRESENTS INDIVIDUALA AGED 2-19 YEARS EXCLUSIVE. RBC 4.20 10E6/uL 4.20-6.30 [employer] ([facility] NORMAL RANGES Age WBC RBC HGB HCT [...] HCT IS 5% LESS SOURCE FOR DATA: Biz[employer] DYN 1800 OPERATION MANUAL( AUTOMATED BLOOD COUNTS AND [...] ADOLESCENTS REPRESENTS INDIVIDUALA AGED 2-19 YEARS EXCLUSIVE. HCT 40.1 % 37.0-51.0 [facility] NORMAL RANGES Age WBC RBC HGB HCT [...] HCT IS 5% LESS SOURCE FOR DATA: EveryScape 1800 OPERATION MANUAL( AUTOMATED BLOOD COUNTS AND [...] ADOLESCENTS REPRESENTS INDIVIDUALA AGED 2-19 YEARS EXCLUSIVE. HGB 13.4 g/dL 12.0-18.0 ALESSANDRO [facility] NORMAL RANGES Age WBC RBC HGB HCT [...] HCT IS 5% LESS SOURCE FOR DATA: EveryScape 1800 OPERATION MANUAL( AUTOMATED BLOOD COUNTS AND [...] ADOLESCENTS REPRESENTS INDIVIDUALA AGED 2-19 YEARS EXCLUSIVE. MCV 95.5 fL 80.0-97.0 [facility] ([facility] NORMAL RANGES Age WBC RBC HGB HCT [...] HCT IS 5% LESS SOURCE FOR DATA: EveryScape 1800 OPERATION MANUAL( AUTOMATED BLOOD COUNTS AND [...] ADOLESCENTS REPRESENTS INDIVIDUALA AGED 2-19 YEARS EXCLUSIVE. MCH 31.9 pg 26.0-32.0 [facility] ([facility] NORMAL RANGES Age WBC RBC HGB HCT [...] HCT IS 5% LESS SOURCE FOR DATA: EveryScape 1800 OPERATION MANUAL( AUTOMATED BLOOD COUNTS AND [...] ADOLESCENTS REPRESENTS INDIVIDUALA AGED 2-19 YEARS EXCLUSIVE. MCHC 33.4 g/dL 31.0-36.0 [facility] ([facility] NORMAL RANGES Age WBC RBC HGB HCT [...] HCT IS 5% LESS SOURCE FOR DATA: EveryScape 1800 OPERATION MANUAL( AUTOMATED BLOOD COUNTS AND [...] ADOLESCENTS REPRESENTS INDIVIDUALA AGED 2-19 YEARS EXCLUSIVE. RDW-CV 12.2 % 11.5-14.5 [facility] ([facility] NORMAL RANGES Age WBC RBC HGB HCT [...] HCT IS 5% LESS SOURCE FOR DATA: EveryScape 1800 OPERATION MANUAL( AUTOMATED BLOOD COUNTS AND [...] ADOLESCENTS REPRESENTS INDIVIDUALA AGED 2-19 YEARS EXCLUSIVE. PLT 247 10E3/uL 140-440 [facility] ([facility] NORMAL RANGES Age WBC RBC HGB HCT [...] HCT IS 5% LESS SOURCE FOR DATA: EveryScape 1800 OPERATION MANUAL( AUTOMATED BLOOD COUNTS AND [...] ADOLESCENTS REPRESENTS INDIVIDUALA AGED 2-19 YEARS EXCLUSIVE. MXD% 6.9 % 0.1-24.0 [facility] ([facility] NORMAL RANGES Age WBC RBC HGB HCT [...] HCT IS 5% LESS SOURCE FOR DATA: MATT DYN 1800 OPERATION MANUAL( AUTOMATED BLOOD COUNTS AND [...] ADOLESCENTS REPRESENTS INDIVIDUALA AGED 2-19 YEARS EXCLUSIVE. Neut% 65.6 % 37.0-92.0 [facility] ([facility] NORMAL RANGES Age WBC RBC HGB HCT [...] HCT IS 5% LESS SOURCE FOR DATA: EveryScape 1800 OPERATION MANUAL( AUTOMATED BLOOD COUNTS AND [...] ADOLESCENTS REPRESENTS INDIVIDUALA AGED 2-19 YEARS EXCLUSIVE. Lym% 27.5 % 10.0-58.5 [facility] ([facility] NORMAL RANGES Age WBC RBC HGB HCT [...] HCT IS 5% LESS SOURCE FOR DATA: EveryScape 1800 OPERATION MANUAL( AUTOMATED BLOOD COUNTS AND [...] ADOLESCENTS REPRESENTS INDIVIDUALA AGED 2-19 YEARS EXCLUSIVE. Lym# 1.6 10E3/uL 0.6-4.1 [employer] ([facility] NORMAL RANGES Age WBC RBC HGB HCT [...] HCT IS 5% LESS SOURCE FOR DATA: [employer]iz[employer] DYN 1800 OPERATION MANUAL( AUTOMATED BLOOD COUNTS AND [...] ADOLESCENTS REPRESENTS INDIVIDUALA AGED 2-19 YEARS EXCLUSIVE. Neut# 3.9 % 2.0-7.8 [facility] ([facility] NORMAL RANGES Age WBC RBC HGB HCT [...] HCT IS 5% LESS SOURCE FOR DATA: EveryScape 1800 OPERATION MANUAL( AUTOMATED BLOOD COUNTS AND [...] ADOLESCENTS REPRESENTS INDIVIDUALA AGED 2-19 YEARS EXCLUSIVE. MXD# 0.4 10E3/uL 0.0-1.8 [facility] ([facility] NORMAL RANGES Age WBC RBC HGB HCT [...] HCT IS 5% LESS SOURCE FOR DATA: EveryScape 1800 OPERATION MANUAL( AUTOMATED BLOOD COUNTS AND [...] ADOLESCENTS REPRESENTS INDIVIDUALA AGED 2-19 YEARS EXCLUSIVE. MPV 9.4 fL 9.0-13.0 [facility] ([facility] NORMAL RANGES Age WBC RBC HGB HCT [...] HCT IS 5% LESS SOURCE FOR DATA: EveryScape 1800 OPERATION MANUAL( AUTOMATED BLOOD COUNTS AND [...] ADOLESCENTS REPRESENTS INDIVIDUALA AGED 2-19 YEARS EXCLUSIVE. ID Date Data Source [id number] 08/01/2021 10:13:00 AM EDT [facility] ([facility] Name Value Range Interpretation Code Description Data Rosa rce(s) Supporting Document(s) Chol 264 mg/dL 0-200 Above high normal [facility] ([facility] NORMAL RANGES Age WBC RBC HGB HCT [...] HCT IS 5% LESS SOURCE FOR DATA: EveryScape 1800 OPERATION MANUAL( AUTOMATED BLOOD COUNTS AND [...] ADOLESCENTS REPRESENTS INDIVIDUALA AGED 2-19 YEARS EXCLUSIVE. Trig 321 mg/dL 35-200 Above high normal [facility] ([facility] NORMAL RANGES Age WBC RBC HGB HCT [...] HCT IS 5% LESS SOURCE FOR DATA: EveryScape 1800 OPERATION MANUAL( AUTOMATED BLOOD COUNTS AND [...] ADOLESCENTS REPRESENTS INDIVIDUALA AGED 2-19 YEARS EXCLUSIVE. LDL_C 127 Calc 75-129 [facility] ([facility] NORMAL RANGES Age WBC RBC HGB HCT [...] HCT IS 5% LESS SOURCE FOR DATA: [employer] DYN 1800 OPERATION MANUAL( AUTOMATED BLOOD COUNTS AND [...] ADOLESCENTS REPRESENTS INDIVIDUALA AGED 2-19 YEARS EXCLUSIVE. Cholesterol in HDL [Mass/volume] in Serum or Plasma 73 mg/dL 35-55 Above high normal [facility] ([facility] ) NORMAL RANGES Age WBC RBC HGB HCT [...] HCT IS 5% LESS SOURCE FOR DATA: EveryScape 1800 OPERATION MANUAL( AUTOMATED BLOOD COUNTS AND [...] DESIRABLE: <130 MG/DL <110 MG/DL BORDERLINE-HIGH RISK: 130- 159 MG/DL 110-129 MG/DL HIGH RISK: >160 MG/DL >130 MG/DL *CHILDREN AND ADOLESCENTS REPRESENTS INDIVIDUALA AGED 2-19 YEARS EXCLUSIVE. Cho/HDL Ratio 3.6 Calc [facility] ([facility] NORMAL RANGES Age WBC RBC HGB HCT [...] HCT IS 5% LESS SOURCE FOR DATA: EveryScape 1800 OPERATION MANUAL( AUTOMATED BLOOD COUNTS AND [...] DESIRABLE: <130 MG/DL <110 MG/DL BORDERLINE-HIGH RISK: 130- 159 MG/DL 110-129 MG/DL HIGH RISK: >160 MG/DL >130 MG/DL *CHILDREN AND ADOLESCENTS REPRESENTS INDIVIDUALA AGED 2-19 YEARS EXCLUSIVE. ID Date Data Source [id number] 08/01/2021 10:13:00 AM JOSH FRANCOIS ([facility] Name Value Range Interpretation Code Description Data Rosa rce(s) Supporting Document(s) Glu 103 mg/dL 70-110 MEDJUVE[facility] ([facility] NORMAL RANGES Age WBC RBC HGB HCT [...] HCT IS 5% LESS SOURCE FOR DATA: EveryScape 1800 OPERATION MANUAL( AUTOMATED BLOOD COUNTS AND [...] DESIRABLE: <130 MG/DL <110 MG/DL BORDERLINE-HIGH RISK: 130- 159 MG/DL 110-129 MG/DL HIGH RISK: >160 MG/DL >130 MG/DL *CHILDREN AND ADOLESCENTS REPRESENTS INDIVIDUALA AGED 2-19 YEARS EXCLUSIVE. Creat 0.8 mg/dL 0.7-1.2 [facility] ([facility] NORMAL RANGES Age WBC RBC HGB HCT [...] HCT IS 5% LESS SOURCE FOR DATA: EveryScape 1800 OPERATION MANUAL( AUTOMATED BLOOD COUNTS AND [...] DESIRABLE: <130 MG/DL <110 MG/DL BORDERLINE-HIGH RISK: 130- 159 MG/DL 110-129 MG/DL HIGH RISK: >160 MG/DL >130 MG/DL *CHILDREN AND ADOLESCENTS REPRESENTS INDIVIDUALA AGED 2-19 YEARS EXCLUSIVE. BUN 10 mg/dL 8- [facility] ([facility] NORMAL RANGES Age WBC RBC HGB HCT [...] HCT IS 5% LESS SOURCE FOR DATA: EveryScape 1800 OPERATION MANUAL( AUTOMATED BLOOD COUNTS AND [...] DESIRABLE: <130 MG/DL <110 MG/DL BORDERLINE-HIGH RISK: 130- 159 MG/DL 110-129 MG/DL HIGH RISK: >160 MG/DL >130 MG/DL *CHILDREN AND ADOLESCENTS REPRESENTS INDIVIDUALA AGED 2-19 YEARS EXCLUSIVE. BUN/Creatinine Ratio 12.9 CALC [facility] ([facility] NORMAL RANGES Age WBC RBC HGB HCT [...] HCT IS 5% LESS SOURCE FOR DATA: EveryScape 1800 OPERATION MANUAL( AUTOMATED BLOOD COUNTS AND [...] DESIRABLE: <130 MG/DL <110 MG/DL BORDERLINE-HIGH RISK: 130- 159 MG/DL 110-129 MG/DL HIGH RISK: >160 MG/DL >130 MG/DL *CHILDREN AND ADOLESCENTS REPRESENTS INDIVIDUALA AGED 2-19 YEARS EXCLUSIVE. Na 139 mmol/L 136-145 [facility] ([facility] NORMAL RANGES Age WBC RBC HGB HCT [...] HCT IS 5% LESS SOURCE FOR DATA: Biz[employer] DYN 1800 OPERATION MANUAL( AUTOMATED BLOOD COUNTS AND [...] DESIRABLE: <130 MG/DL <110 MG/DL BORDERLINE-HIGH RISK: 130- 159 MG/DL 110-129 MG/DL HIGH RISK: >160 MG/DL >130 MG/DL *CHILDREN AND ADOLESCENTS REPRESENTS INDIVIDUALA AGED 2-19 YEARS EXCLUSIVE. CL 104.0 mmol/L 98.0-107.0 [facility] ([facility] NORMAL RANGES Age WBC RBC HGB HCT [...] HCT IS 5% LESS SOURCE FOR DATA: EveryScape 1800 OPERATION MANUAL( AUTOMATED BLOOD COUNTS AND [...] DESIRABLE: <130 MG/DL <110 MG/DL BORDERLINE-HIGH RISK: 130- 159 MG/DL 110-129 MG/DL HIGH RISK: >160 MG/DL >130 MG/DL *CHILDREN AND ADOLESCENTS REPRESENTS INDIVIDUALA AGED 2-19 YEARS EXCLUSIVE. K 4.3 mmol/L 3.5-5.1 [facility] ([facility] NORMAL RANGES Age WBC RBC HGB HCT [...] HCT IS 5% LESS SOURCE FOR DATA: EveryScape 1800 OPERATION MANUAL( AUTOMATED BLOOD COUNTS AND [...] DESIRABLE: <130 MG/DL <110 MG/DL BORDERLINE-HIGH RISK: 130- 159 MG/DL 110-129 MG/DL HIGH RISK: >160 MG/DL >130 MG/DL *CHILDREN AND ADOLESCENTS REPRESENTS INDIVIDUALA AGED 2-19 YEARS EXCLUSIVE. Co2 19.0 mmol/L 22.0-29.0 Below low normal [facility] ([facility] NORMAL RANGES Age WBC RBC HGB HCT [...] HCT IS 5% LESS SOURCE FOR DATA: EveryScape 1800 OPERATION MANUAL( AUTOMATED BLOOD COUNTS AND [...] DESIRABLE: <130 MG/DL <110 MG/DL BORDERLINE-HIGH RISK: 130- 159 MG/DL 110-129 MG/DL HIGH RISK: >160 MG/DL >130 MG/DL *CHILDREN AND ADOLESCENTS REPRESENTS INDIVIDUALA AGED 2-19 YEARS EXCLUSIVE. Alb 4.3 g/dL 3.5-5.2 [facility] ([facility] NORMAL RANGES Age WBC RBC HGB HCT [...] HCT IS 5% LESS SOURCE FOR DATA: EveryScape 1800 OPERATION MANUAL( AUTOMATED BLOOD COUNTS AND [...] DESIRABLE: <130 MG/DL <110 MG/DL BORDERLINE-HIGH RISK: 130- 159 MG/DL 110-129 MG/DL HIGH RISK: >160 MG/DL >130 MG/DL *CHILDREN AND ADOLESCENTS REPRESENTS INDIVIDUALA AGED 2-19 YEARS EXCLUSIVE. TP 6.9 g/dL 6.6-8.7 [facility] ([facility] NORMAL RANGES Age WBC RBC HGB HCT [...] HCT IS 5% LESS SOURCE FOR DATA: EveryScape 1800 OPERATION MANUAL( AUTOMATED BLOOD COUNTS AND [...] DESIRABLE: <130 MG/DL <110 MG/DL BORDERLINE-HIGH RISK: 130- 159 MG/DL 110-129 MG/DL HIGH RISK: >160 MG/DL >130 MG/DL *CHILDREN AND ADOLESCENTS REPRESENTS INDIVIDUALA AGED 2-19 YEARS EXCLUSIVE. CA 8.9 mg/dL 8.6-10.2 [facility] ([facility] NORMAL RANGES Age WBC RBC HGB HCT [...] HCT IS 5% LESS SOURCE FOR DATA: EveryScape 1800 OPERATION MANUAL( AUTOMATED BLOOD COUNTS AND [...] DESIRABLE: <130 MG/DL <110 MG/DL BORDERLINE-HIGH RISK: 130- 159 MG/DL 110-129 MG/DL HIGH RISK: >160 MG/DL >130 MG/DL *CHILDREN AND ADOLESCENTS REPRESENTS INDIVIDUALA AGED 2-19 YEARS EXCLUSIVE. Globulin 2.6 CALC [facility] ([facility] NORMAL RANGES Age WBC RBC HGB HCT [...] HCT IS 5% LESS SOURCE FOR DATA: [employer] DYN 1800 OPERATION MANUAL( AUTOMATED BLOOD COUNTS AND [...] DESIRABLE: <130 MG/DL <110 MG/DL BORDERLINE-HIGH RISK: 130- 159 MG/DL 110-129 MG/DL HIGH RISK: >160 MG/DL >130 MG/DL *CHILDREN AND ADOLESCENTS REPRESENTS INDIVIDUALA AGED 2-19 YEARS EXCLUSIVE. A/G Ratio 1.7 CALC [facility] ([facility] NORMAL RANGES Age WBC RBC HGB HCT [...] HCT IS 5% LESS SOURCE FOR DATA: EveryScape 1800 OPERATION MANUAL( AUTOMATED BLOOD COUNTS AND [...] DESIRABLE: <130 MG/DL <110 MG/DL BORDERLINE-HIGH RISK: 130- 159 MG/DL 110-129 MG/DL HIGH RISK: >160 MG/DL >130 MG/DL *CHILDREN AND ADOLESCENTS REPRESENTS INDIVIDUALA AGED 2-19 YEARS EXCLUSIVE. Alt (SGPT) 42 U/L 0-41 Above high normal [facility] ([facility] NORMAL RANGES Age WBC RBC HGB HCT [...] HCT IS 5% LESS SOURCE FOR DATA: EveryScape 1800 OPERATION MANUAL( AUTOMATED BLOOD COUNTS AND [...] DESIRABLE: <130 MG/DL <110 MG/DL BORDERLINE-HIGH RISK: 130- 159 MG/DL 110-129 MG/DL HIGH RISK: >160 MG/DL >130 MG/DL *CHILDREN AND ADOLESCENTS REPRESENTS INDIVIDUALA AGED 2-19 YEARS EXCLUSIVE. Alp 116.0 U/L 40-129 [facility] ([facility] NORMAL RANGES Age WBC RBC HGB HCT [...] HCT IS 5% LESS SOURCE FOR DATA: EveryScape 1800 OPERATION MANUAL( AUTOMATED BLOOD COUNTS AND [...] DESIRABLE: <130 MG/DL <110 MG/DL BORDERLINE-HIGH RISK: 130- 159 MG/DL 110-129 MG/DL HIGH RISK: >160 MG/DL >130 MG/DL *CHILDREN AND ADOLESCENTS REPRESENTS INDIVIDUALA AGED 2-19 YEARS EXCLUSIVE. Tbili 0.35 mg/dL 0.0-1.2 [facility] ([facility] NORMAL RANGES Age WBC RBC HGB HCT [...] HCT IS 5% LESS SOURCE FOR DATA: EveryScape 1800 OPERATION MANUAL( AUTOMATED BLOOD COUNTS AND [...] DESIRABLE: <130 MG/DL <110 MG/DL BORDERLINE-HIGH RISK: 130- 159 MG/DL 110-129 MG/DL HIGH RISK: >160 MG/DL >130 MG/DL *CHILDREN AND ADOLESCENTS REPRESENTS INDIVIDUALA AGED 2-19 YEARS EXCLUSIVE. Ast (Sgot) 54 U/L 0-40 Above high normal [facility] ([facility] NORMAL RANGES Age WBC RBC HGB HCT [...] HCT IS 5% LESS SOURCE FOR DATA: MATT DYN 1800 OPERATION MANUAL( AUTOMATED BLOOD COUNTS AND [...] DESIRABLE: <130 MG/DL <110 MG/DL BORDERLINE-HIGH RISK: 130- 159 MG/DL 110-129 MG/DL HIGH RISK: >160 MG/DL >130 MG/DL *CHILDREN AND ADOLESCENTS REPRESENTS INDIVIDUALA AGED 2-19 YEARS EXCLUSIVE. Osmolality-Calculated 276.7 CALC [facility] ([facility] NORMAL RANGES Age WBC RBC HGB HCT [...] HCT IS 5% LESS SOURCE FOR DATA: EveryScape 1800 OPERATION MANUAL( AUTOMATED BLOOD COUNTS AND [...] DESIRABLE: <130 MG/DL <110 MG/DL BORDERLINE-HIGH RISK: 130- 159 MG/DL 110-129 MG/DL HIGH RISK: >160 MG/DL >130 MG/DL *CHILDREN AND ADOLESCENTS REPRESENTS INDIVIDUALA AGED 2-19 YEARS EXCLUSIVE. Anion Gap 20 mmol/L [facility] NORMAL RANGES Age WBC RBC HGB HCT [...] HCT IS 5% LESS SOURCE FOR DATA: EveryScape 1800 OPERATION MANUAL( AUTOMATED BLOOD COUNTS AND [...] DESIRABLE: <130 MG/DL <110 MG/DL BORDERLINE-HIGH RISK: 130- 159 MG/DL 110-129 MG/DL HIGH RISK: >160 MG/DL >130 MG/DL *CHILDREN AND ADOLESCENTS REPRESENTS INDIVIDUALA AGED 2-19 YEARS EXCLUSIVE. eGFR 112 # [facility] ( [facility] NORMAL RANGES Age WBC RBC HGB HCT [...] HCT IS 5% LESS SOURCE FOR DATA: [employer] DYN 1800 OPERATION MANUAL( AUTOMATED BLOOD COUNTS AND [...] DESIRABLE: <130 MG/DL <110 MG/DL BORDERLINE-HIGH RISK: 130- 159 MG/DL 110-129 MG/DL HIGH RISK: >160 MG/DL >130 MG/DL *CHILDREN AND ADOLESCENTS REPRESENTS INDIVIDUALA AGED 2-19 YEARS EXCLUSIVE. eGFR Non-Afr. Tajik 96 # [facility] ([facility] NORMAL RANGES Age WBC RBC HGB HCT [...] HCT IS 5% LESS SOURCE FOR DATA: EveryScape 1800 OPERATION MANUAL( AUTOMATED BLOOD COUNTS AND [...] DESIRABLE: <130 MG/DL <110 MG/DL BORDERLINE-HIGH RISK: 130- 159 MG/DL 110-129 MG/DL HIGH RISK: >160 MG/DL >130 MG/DL *CHILDREN AND ADOLESCENTS REPRESENTS INDIVIDUALA AGED 2-19 YEARS EXCLUSIVE. ID Date Data Source [id number] 03/10/2021 10:09:00 AM EDT [facility] ([facility] Name Value Range Interpretation Code Description Data Rosa rce(s) Supporting Document(s) Glu 123 mg/dL 70-110 Above high normal [facility] ([facility] CHRONIC KIDNEY DISEASE STAGING PER NKF: MALE [...] Normal 80 and above >32 mL/min Normal BUN 10 mg/dL 8-23 [facility] ([facility] CHRONIC KIDNEY DISEASE STAGING PER NKF: MALE [...] Normal 80 and above >32 mL/min Normal Creat 0.8 mg/dL 0.7-1.2 [facility] ([facility] CHRONIC KIDNEY DISEASE STAGING PER NKF: MALE [...] Normal 80 and above >32 mL/min Normal Na 136 mmol/L 136-145 [facility] ([facility] CHRONIC KIDNEY DISEASE STAGING PER NKF: MALE [...] Normal 80 and above >32 mL/min Normal BUN/Creatinine Ratio 12.1 CALC [facility] ([facility] CHRONIC KIDNEY DISEASE STAGING PER NKF: MALE [...] Normal 80 and above >32 mL/min Normal K 3.9 mmol/L 3.5-5.1 [facility] ([facility] CHRONIC KIDNEY DISEASE STAGING PER NKF: MALE [...] Normal 80 and above >32 mL/min Normal CL 99.9 mmol/L 98.0-107.0 MEDENT ([facility] CHRONIC KIDNEY DISEASE STAGING PER NKF: MALE [...] Normal 80 and above >32 mL/min Normal Co2 21.7 mmol/L 22.0-29.0 Below low normal MEDENT ([facility] CHRONIC KIDNEY DISEASE STAGING PER NKF: MALE [...] Normal 80 and above >32 mL/min Normal CA 9.1 mg/dL 8.6-10.2 MEDENT ([facility] CHRONIC KIDNEY DISEASE STAGING PER NKF: MALE [...] Normal 80 and above >32 mL/min Normal TP 7.1 g/dL 6.6-8.7 MEDENT ([facility] CHRONIC KIDNEY DISEASE STAGING PER NKF: MALE [...] Normal 80 and above >32 mL/min Normal Alb 4.4 g/dL 3.5-5.2 MEDENT ([facility] CHRONIC KIDNEY DISEASE STAGING PER NKF: MALE [...] Normal 80 and above >32 mL/min Normal A/G Ratio 1.6 CALC MEDENT ([facility] CHRONIC KIDNEY DISEASE STAGING PER NKF: MALE [...] Normal 80 and above >32 mL/min Normal Globulin 2.7 CALC MEDENT ([facility] CHRONIC KIDNEY DISEASE STAGING PER NKF: MALE [...] Normal 80 and above >32 mL/min Normal Alp 164.4 U/L 40-129 Above high normal [facility] ([facility] CHRONIC KIDNEY DISEASE STAGING PER NKF: MALE [...] Normal 80 and above >32 mL/min Normal Alt (SGPT) 78 U/L 0-41 Above high normal [facility] ([facility] CHRONIC KIDNEY DISEASE STAGING PER NKF: MALE [...] Normal 80 and above >32 mL/min Normal Ast (Sgot) 105 U/L 0-40 Above high normal [facility] ([facility] CHRONIC KIDNEY DISEASE STAGING PER NKF: MALE [...] Normal 80 and above >32 mL/min Normal Osmolality-Calculated 273.1 CALC MED ENT ([facility] CHRONIC KIDNEY DISEASE STAGING PER NKF: MALE [...] Normal 80 and above >32 mL/min Normal Anion Gap 19 mmol/L [facility] ([facility] CHRONIC KIDNEY DISEASE STAGING PER NKF: MALE [...] Normal 80 and above >32 mL/min Normal Tbili 1.20 mg/dL 0.0-1.2 [facility] ([facility] CHRONIC KIDNEY DISEASE STAGING PER NKF: MALE [...] Normal 80 and above >32 mL/min Normal eGFR Non-Afr. Tajik 96 # ALESSANDRO ([facility] CHRONIC KIDNEY DISEASE STAGING PER NKF: MALE [...] Normal 80 and above >32 mL/min Normal eGFR 112 # ALESSANDRO ( [facility] CHRONIC KIDNEY DISEASE STAGING PER NKF: MALE [...] Normal 80 and above >32 mL/min Normal ID Date Data Source [id number] 02/07/2021 10:40:00 AM EDT ALESSANDRO ([facility] Name Value Range Interpretation Code Description Data Rosa rce(s) Supporting Document(s) Chol 292 mg/dL 0-200 Above high normal ALESSANDRO ([facility] CHRONIC KIDNEY DISEASE STAGING PER NKF: MALE [...] DESIRABLE: <130 MG/DL <110 MG/DL BORDERLINE-HIGH RISK: 130- 159 MG/DL 110-129 MG/DL HIGH RISK: >160 MG/DL >130 MG/DL *CHILDREN AND ADOLESCENTS REPRESENTS INDIVIDUALA AGED 2-19 YEARS EXCLUSIVE. Trig 580 mg/dL 35-200 Above high normal MED[facility] ([facility] CHRONIC KIDNEY DISEASE STAGING PER NKF: MALE [...] DESIRABLE: <130 MG/DL <110 MG/DL BORDERLINE-HIGH RISK: 130- 159 MG/DL 110-129 MG/DL HIGH RISK: >160 MG/DL >130 MG/DL *CHILDREN AND ADOLESCENTS REPRESENTS INDIVIDUALA AGED 2-19 YEARS EXCLUSIVE. Cholesterol in HDL [Mass/volume] in Serum or Plasma 37 mg/dL 35-55 [facility] ([facility] CHRONIC KIDNEY DISEASE STAGING PER NKF: MALE [...] DESIRABLE: <130 MG/DL <110 MG/DL BORDERLINE-HIGH RISK: 130- 159 MG/DL 110-129 MG/DL HIGH RISK: >160 MG/DL >130 MG/DL *CHILDREN AND ADOLESCENTS REPRESENTS INDIVIDUALA AGED 2-19 YEARS EXCLUSIVE. LDL_C Laboratory test result 75-129 Abnormal (applies to non -numeric results) [facility] ([facility] CHRONIC KIDNEY DISEASE STAGING PER NKF: MALE [...] DESIRABLE: <130 MG/DL <110 MG/DL BORDERLINE-HIGH RISK: 130- 159 MG/DL 110-129 MG/DL HIGH RISK: >160 MG/DL >130 MG/DL *CHILDREN AND ADOLESCENTS REPRESENTS INDIVIDUALA AGED 2-19 YEARS EXCLUSIVE. Cho/HDL Ratio 8.0 Calc ALESSANDRO ([facility] CHRONIC KIDNEY DISEASE STAGING PER NKF: MALE [...] DESIRABLE: <130 MG/DL <110 MG/DL BORDERLINE-HIGH RISK: 130- 159 MG/DL 110-129 MG/DL HIGH RISK: >160 MG/DL >130 MG/DL *CHILDREN AND ADOLESCENTS REPRESENTS INDIVIDUALA AGED 2-19 YEARS EXCLUSIVE. ID Date Data Source [id number] 02/07/2021 10:40:00 AM EDT ALESSANDRO ([facility] Name Value Range Interpretation Code Description Data Rosa rce(s) Supporting Document(s) Glu 137 mg/dL 70-110 Above high normal ALESSANDRO ([facility] CHRONIC KIDNEY DISEASE STAGING PER NKF: MALE [...] DESIRABLE: <130 MG/DL <110 MG/DL BORDERLINE-HIGH RISK: 130- 159 MG/DL 110-129 MG/DL HIGH RISK: >160 MG/DL >130 MG/DL *CHILDREN AND ADOLESCENTS REPRESENTS INDIVIDUALA AGED 2-19 YEARS EXCLUSIVE. Creat 0.8 mg/dL 0.7-1.2 [facility] CHRONIC KIDNEY DISEASE STAGING PER NKF: MALE [...] DESIRABLE: <130 MG/DL <110 MG/DL BORDERLINE-HIGH RISK: 130- 159 MG/DL 110-129 MG/DL HIGH RISK: >160 MG/DL >130 MG/DL *CHILDREN AND ADOLESCENTS REPRESENTS INDIVIDUALA AGED 2-19 YEARS EXCLUSIVE. BUN/Creatinine Ratio 15.0 CALC MEDENT ([facility] CHRONIC KIDNEY DISEASE STAGING PER NKF: MALE [...] DESIRABLE: <130 MG/DL <110 MG/DL BORDERLINE-HIGH RISK: 130- 159 MG/DL 110-129 MG/DL HIGH RISK: >160 MG/DL >130 MG/DL *CHILDREN AND ADOLESCENTS REPRESENTS INDIVIDUALA AGED 2-19 YEARS EXCLUSIVE. BUN 11 mg/dL 8-23 [facility] CHRONIC KIDNEY DISEASE STAGING PER NKF: MALE [...] DESIRABLE: <130 MG/DL <110 MG/DL BORDERLINE-HIGH RISK: 130- 159 MG/DL 110-129 MG/DL HIGH RISK: >160 MG/DL >130 MG/DL *CHILDREN AND ADOLESCENTS REPRESENTS INDIVIDUALA AGED 2-19 YEARS EXCLUSIVE. Na 136 mmol/L 136-145 [facility] ([facility] CHRONIC KIDNEY DISEASE STAGING PER NKF: MALE [...] DESIRABLE: <130 MG/DL <110 MG/DL BORDERLINE-HIGH RISK: 130- 159 MG/DL 110-129 MG/DL HIGH RISK: >160 MG/DL >130 MG/DL *CHILDREN AND ADOLESCENTS REPRESENTS INDIVIDUALA AGED 2-19 YEARS EXCLUSIVE. K 3.9 mmol/L 3.5-5.1 [facility]DR[facility] ([facility] CHRONIC KIDNEY DISEASE STAGING PER NKF: MALE [...] DESIRABLE: <130 MG/DL <110 MG/DL BORDERLINE-HIGH RISK: 130- 159 MG/DL 110-129 MG/DL HIGH RISK: >160 MG/DL >130 MG/DL *CHILDREN AND ADOLESCENTS REPRESENTS INDIVIDUALA AGED 2-19 YEARS EXCLUSIVE. Co2 21.7 mmol/L 22.0-29.0 Below low normal [facility] ([facility] CHRONIC KIDNEY DISEASE STAGING PER NKF: MALE [...] DESIRABLE: <130 MG/DL <110 MG/DL BORDERLINE-HIGH RISK: 130- 159 MG/DL 110-129 MG/DL HIGH RISK: >160 MG/DL >130 MG/DL *CHILDREN AND ADOLESCENTS REPRESENTS INDIVIDUALA AGED 2-19 YEARS EXCLUSIVE. CL 98.9 mmol/L 98.0-107.0 [facility] ([facility] CHRONIC KIDNEY DISEASE STAGING PER NKF: MALE [...] DESIRABLE: <130 MG/DL <110 MG/DL BORDERLINE-HIGH RISK: 130- 159 MG/DL 110-129 MG/DL HIGH RISK: >160 MG/DL >130 MG/DL *CHILDREN AND ADOLESCENTS REPRESENTS INDIVIDUALA AGED 2-19 YEARS EXCLUSIVE. CA 9.5 mg/dL 8.6-10.2 [facility] CHRONIC KIDNEY DISEASE STAGING PER NKF: MALE [...] DESIRABLE: <130 MG/DL <110 MG/DL BORDERLINE-HIGH RISK: 130- 159 MG/DL 110-129 MG/DL HIGH RISK: >160 MG/DL >130 MG/DL *CHILDREN AND ADOLESCENTS REPRESENTS INDIVIDUALA AGED 2-19 YEARS EXCLUSIVE. Alb 4.3 g/dL 3.5-5.2 [facility] CHRONIC KIDNEY DISEASE STAGING PER NKF: MALE [...] DESIRABLE: <130 MG/DL <110 MG/DL BORDERLINE-HIGH RISK: 130- 159 MG/DL 110-129 MG/DL HIGH RISK: >160 MG/DL >130 MG/DL *CHILDREN AND ADOLESCENTS REPRESENTS INDIVIDUALA AGED 2-19 YEARS EXCLUSIVE. TP 6.8 g/dL 6.6-8.7 [facility] ([facility] CHRONIC KIDNEY DISEASE STAGING PER NKF: MALE [...] DESIRABLE: <130 MG/DL <110 MG/DL BORDERLINE-HIGH RISK: 130- 159 MG/DL 110-129 MG/DL HIGH RISK: >160 MG/DL >130 MG/DL *CHILDREN AND ADOLESCENTS REPRESENTS INDIVIDUALA AGED 2-19 YEARS EXCLUSIVE. A/G Ratio 1.7 CALC [facility] ([facility] CHRONIC KIDNEY DISEASE STAGING PER NKF: MALE [...] DESIRABLE: <130 MG/DL <110 MG/DL BORDERLINE-HIGH RISK: 130- 159 MG/DL 110-129 MG/DL HIGH RISK: >160 MG/DL >130 MG/DL *CHILDREN AND ADOLESCENTS REPRESENTS INDIVIDUALA AGED 2-19 YEARS EXCLUSIVE. Alp 157.8 U/L 40-129 Above high normal [facility] ([facility] CHRONIC KIDNEY DISEASE STAGING PER NKF: MALE [...] DESIRABLE: <130 MG/DL <110 MG/DL BORDERLINE-HIGH RISK: 130- 159 MG/DL 110-129 MG/DL HIGH RISK: >160 MG/DL >130 MG/DL *CHILDREN AND ADOLESCENTS REPRESENTS INDIVIDUALA AGED 2-19 YEARS EXCLUSIVE. Globulin 2.5 CALC [facility] CHRONIC KIDNEY DISEASE STAGING PER NKF: MALE [...] DESIRABLE: <130 MG/DL <110 MG/DL BORDERLINE-HIGH RISK: 130- 159 MG/DL 110-129 MG/DL HIGH RISK: >160 MG/DL >130 MG/DL *CHILDREN AND ADOLESCENTS REPRESENTS INDIVIDUALA AGED 2-19 YEARS EXCLUSIVE. Ast (Sgot) 287 U/L 0-40 Above high normal [facility] ([facility] CHRONIC KIDNEY DISEASE STAGING PER NKF: MALE [...] DESIRABLE: <130 MG/DL <110 MG/DL BORDERLINE-HIGH RISK: 130- 159 MG/DL 110-129 MG/DL HIGH RISK: >160 MG/DL >130 MG/DL *CHILDREN AND ADOLESCENTS REPRESENTS INDIVIDUALA AGED 2-19 YEARS EXCLUSIVE. Alt (SGPT) 210 U/L 0-41 Above high normal [facility] ([facility] CHRONIC KIDNEY DISEASE STAGING PER NKF: MALE [...] DESIRABLE: <130 MG/DL <110 MG/DL BORDERLINE-HIGH RISK: 130- 159 MG/DL 110-129 MG/DL HIGH RISK: >160 MG/DL >130 MG/DL *CHILDREN AND ADOLESCENTS REPRESENTS INDIVIDUALA AGED 2-19 YEARS EXCLUSIVE. Tbili 2.02 mg/dL 0.0-1.2 Above high normal [facility] ([facility] CHRONIC KIDNEY DISEASE STAGING PER NKF: MALE [...] DESIRABLE: <130 MG/DL <110 MG/DL BORDERLINE-HIGH RISK: 130- 159 MG/DL 110-129 MG/DL HIGH RISK: >160 MG/DL >130 MG/DL *CHILDREN AND ADOLESCENTS REPRESENTS INDIVIDUALA AGED 2-19 YEARS EXCLUSIVE. Osmolality-Calculated 273.4 CALC MED ENT ([facility] CHRONIC KIDNEY DISEASE STAGING PER NKF: MALE [...] DESIRABLE: <130 MG/DL <110 MG/DL BORDERLINE-HIGH RISK: 130- 159 MG/DL 110-129 MG/DL HIGH RISK: >160 MG/DL >130 MG/DL *CHILDREN AND ADOLESCENTS REPRESENTS INDIVIDUALA AGED 2-19 YEARS EXCLUSIVE. Anion Gap 19 mmol/L [facility] CHRONIC KIDNEY DISEASE STAGING PER NKF: MALE [...] DESIRABLE: <130 MG/DL <110 MG/DL BORDERLINE-HIGH RISK: 130- 159 MG/DL 110-129 MG/DL HIGH RISK: >160 MG/DL >130 MG/DL *CHILDREN AND ADOLESCENTS REPRESENTS INDIVIDUALA AGED 2-19 YEARS EXCLUSIVE. eGFR 112 # [facility] ( [facility] CHRONIC KIDNEY DISEASE STAGING PER NKF: MALE [...] DESIRABLE: <130 MG/DL <110 MG/DL BORDERLINE-HIGH RISK: 130- 159 MG/DL 110-129 MG/DL HIGH RISK: >160 MG/DL >130 MG/DL *CHILDREN AND ADOLESCENTS REPRESENTS INDIVIDUALA AGED 2-19 YEARS EXCLUSIVE. eGFR Non-Afr. Tajik 96 # [facility] ([facility] CHRONIC KIDNEY DISEASE STAGING PER NKF: MALE [...] DESIRABLE: <130 MG/DL <110 MG/DL BORDERLINE-HIGH RISK: 130- 159 MG/DL 110-129 MG/DL HIGH RISK: >160 MG/DL >130 MG/DL *CHILDREN AND ADOLESCENTS REPRESENTS INDIVIDUALA AGED 2-19 YEARS EXCLUSIVE. ID Date Data Source [id number] 02/07/2021 10:39:00 AM EDT MEDJUVENAL ([facility] Name Value Range Interpretation Code Description Data Rosa rce(s) Supporting Document(s) Amylase [Enzymatic activity/volume] in Serum or Plasma 51 U/L 31- 110 [facility] ([facility] Lipoprotein lipase [Enzymatic activity/volume] in Serum or Plasm a 56 U/L 13-78 [facility] ([facility] ) ID Date Data Source [id number] 11/17/2020 03:03:47 PM EST [facility] -REPORT:PROCEDURE: XR SCOLIOSIS SERIESDA TE AND TIME: 11/17/2020 11:03 AM ESTHISTORY: Back pain.COMPARISON: None prior study from October 05, 2015.TECHNIQUE: 6 views of the thoracic and lumbar spine are submitted forreview to comprise a scoliosis series.FINDINGS: There is dextroscoliosis of the thoracolumbar spine. Alignmentis otherwise grossly normal. No acute fractures are present. There ismultilevel [id number] degenerative disc disease within the lumbarspine. There is also mild multilevel degenerative disc disease withinthe thoracic spine. The patient is status post prior anterior andposterior fusion within the cervical spine. The soft tissues are grosslynormal.IMPRESSION:Dextroscoliosis.Multilevel degenerative disc disease.DWS:[id number] SIGNATURE: Manjit Felton MD Name Value Range Interpretation Code Description Data Rosa rce(s) Supporting Document(s) ID Date Data Source [id number] 11/17/2020 12:07:19 PM EST [facility] Name Value Range Interpretation Code Description Data Rosa rce(s) Supporting Document(s) Progress Note [facility] rvices ZEPGAz5iMbNXWfPl03/VLSatILQvd2IeRZtnREs2GVpjDAOqE4BzGBJ8vF2aZKP7MSgSCkSgNmRrGsTl lbm [file] /4EM77dQ5aHyvZak/Mr/3GC57WoNRTQYlIfswTb9R5j2gQrj4xX3F5dbnca++commercial development manager+buWhWSCfFQ7mL4Xo VxxOXvnRW8IxU/upqSxjrH3r0cB/R/u/2EfKySbMry kp9Z/5MT+cSFeaPJsBqVvd4n21m6xto5HbHdD7QtnAaiidQcxyQ/FtCBrz/O7M1DtLn1u01IUK1dD8IF uDvTedWgdCbMl3LDU0pb+qurxC+1zZ0FgxdykeSkY/fP18oERrIU5HZyTm8h+sK0Bu9Z4yF/SVyeUR0k N6+wR50yYhoMiGFuvGqL6gE7j37d0cjeJImv2NRqI/ zb7O9WaeF9ddgDj3vU8c1E64Hgz4cVT+czRrOVMLKj+48Q19o3bGppGUlIhl4CKW2dz9NlMCJdAPhxhf LsCkaQPqYnMWUwa4ObLLdvUDj3GMtdSAUfR9B2oLIhTURhVV4QCQDwYX0CUYPraeYwHsFlMLPLDsQkEU NxSgHwb8RwY3EkIKRiDZARNBwoQCNaX90kKYthRp41 ZPjcZHIjKxKdHSp7Ab6QCeNoHRJhV29ccUXpdCUqFTVjNQBLJGftRFEpL2sdb1BdMVx6YT4VMM9UeeBx h1YxixTpV8kkY6YDKS0YVIDhY3PUJ2NeH7jyLzIau9YdW2qeRhWqc1GgIo8LWfBbVv7PJpCnAY3hma0J SEBqWMYdEjrICrMkWQbrYdfspBIcXP3LdKA5QUBbJ2 0eJMAwOOSeF3QaRYA3Wl3+QBvdZEF1piFneQ0AVXYmvSiHepUQka4Y/A/tYOz2em64DwcNGGi0DVF+iQ +nGrRGr7EY6O4cliS6P6rY6DA5tGYbry7ABNwXE991zy06qa/85WGdicE2kIXGqH6nHGfDZs4o1qkLdU SSRSVqbOQXWSPNRtboxQG6ipFDGuT1RP1PPHTbM1g1 [file] AgICAgICAgICAgICAgICAgICAgICAgICAgICAgICAg ICAgICAgICAgICAgICAgICAgICAgICAgICAgDQogICAgICAgICAgICAgICAgICAgICAgICAgICAgICAg ICAgICAgICAgICAgICAgICAgICAgICAgICAgICAgICAgICAgICAgICAgICAgICAgICAgICAgICAgICAg ICAgICAgICAgDQogICAgICAgICAgICAgICAgICAgIC AgICAgICAgICAgICAgICAgICAgICAgICAgICAgICAgICAgICAgICAgICAgICAgICAgICAgICAgICAgIC AgICAgICAgICAgICAgICAgICAgDQogICAgICAgICAgICAgICAgICAgICAgICAgICAgICAgICAgICAgIC AgICAgICAgICAgICAgICAgICAgICAgICAgICAgICAg ICAgICAgICAgICAgICAgICAgICAgICAgICAgICAgDQogICAgICAgICAgICAgICAgICAgICAgICAgICAg ICAgICAgICAgICAgICAgICAgICAgICAgICAgICAgICAgICAgICAgICAgICAgICAgICAgICAgICAgICAg ICAgICAgICAgICAgDQogICAgICAgICAgICAgICAgIC AgICAgICAgICAgICAgICAgICAgICAgICAgICAgICAgICAgICAgICAgICAgICAgICAgICAgICAgICAgIC AgICAgICAgICAgICAgICAgICAgICAgDQogICAgICAgICAgICAgICAgICAgICAgICAgICAgICAgICAgIC AgICAgICAgICAgICAgICAgICAgICAgICAgICAgICAg ICAgICAgICAgICAgICAgICAgICAgICAgICAgICAgICAgDQogICAgICAgICAgICAgICAgICAgICAgICAg ICAgICAgICAgICAgICAgICAgICAgICAgICAgICAgICAgICAgICAgICAgICAgICAgICAgICAgICAgICAg ICAgICAgICAgICAgICAgDQogICAgICAgICAgICAgIC AgICAgICAgICAgICAgICAgICAgICAgICAgICAgICAgICAgICAgICAgICAgICAgICAgICAgICAgICAgIC AgICAgICAgICAgICAgICAgICAgICAgICAgDQogICAgICAgICAgICAgICAgICAgICAgICAgICAgICAgIC AgICAgICAgICAgICAgICAgICAgICAgICAgICAgICAg QYHbJSUgQNEyPYYeFGSiURGeTLMmLQPzNONnQJRoLUFvAZZkLVv5Z7itMDElUEDpAN4rLIu3Zn0+DQoN QiYgKCL3nfVztW6JNZ1aj9RdGVqlBAIzp4UmMAo3ZB7NZEKrPCyjUO4GHNlfpy2ZBQDyWMTcvJTBd2no MeIpHXP4TTBjHrwoXL1XWBBjT1lwtuGqMSKhMRDCTC kaBNOGNTqiWOUWPRAtEIQpBbZxRhSsZNLmZB1DAATvM985dzBxXU8FXw6TRjTnHR9ezx5IQQOtLCZrLl iFVzp8FUlyNC6DyFAnxZI4HnQiHWAEUaBgL3izt3HkMEJtYYJJKQacKL4Kx4XemOUxZFp+Zb6WPH9hr5 HfCXl2ChIxKA4fjl1HRClFIpKhN7OrgKquLWHxr5ru BWDoHP3oyHVjCWY3CLgpDPzfEHIUAEQarBprMKMXGNSzhGDxXvSkOqDdRQUyGJfwQUBELIbKBePcP2Oe j8EbZgL8KAYpZlXbOHpcBGOjWwR0OJ38lIhvDP8LISMnCUUpFM28TQFvPBGkXu8MOv1MEpOaRL2phw1H QUKpMAWaZpjKNof4GZuiIP9HdQLmO0ZvdHOjx6jQIr MaS9CIWNK3NTVkOg0KYZIeWsBdVCDzLRwnPT8mJGXmDKYYsBkyhyL9RX4TBZ7xuyErEJ1JViLpGc8jEx 7DCbPfJ8RkW8BeMDCtCMHZTKoxYD0GQOhsUW9uRM2Nc3AWsIGktJ5dko3ZZAWkBSUlSbsxxv6ZEgutP5 H5qVpaZCQnSCKnSMOJNAjnKI6GAJDvBBI4VUC3ZZPj YJHOThXcX34iTY8FH2Wrw34qGgL9NWEvWmXtYJkfUR26dWbvlyWyfWVxqPbiXX3AIs8+DQplbmRvYmoN GgjsRBPGEaZwSXZCSyKsIXTiHISiZKZnUkB2TnJmPw6BCLRlOJDrHTKnQtKlKRFjAQMdGApwTNMdZJNb RWH4RGHfRVLoFV2HRvUoMZUpUIE3LtSwSLPrXKAcsv 3BSDIsWDSeBAG7FaMmWCHhCOHzWKvqLQDkJPOrNzN0UOUkQDNnEZ7BJbIoZIGsDTJ7XVVcYQGgKFBheh 3HPEWeXOGwSGOpTFVgNBPjORCyAWpvYSXmXLQ6YIDpNMSmKNQhOH2GCzOiPDGwUHu0LAIjXKOgXGLfnz 9WUVToMDRvUICjJHVfVFMxNMAoBExvABTiOYT9YdA5 SRAbRZWsGR5CIoHnORMfMAm0SZPtRJJcNCHzdd0PVGLdHDIpVXs3HQUfDYSrIPLsNKtuZFJnRPDnPIf6 OJHyMSLvJN6GOqKlDORgSZPaETFgEUQjDLRunn6ZLBNqJSGzSNG6SVWwSTMsPIPdPHoaDJWyAZDkADH4 KPPzJLJtMN9HQqXvCMRfUEL6LIZbAEUzPFShyh8AJN PvSFYuJcN8AiLgFNQwFNPqPKqyKMZoRFZnOJs7ZGZdKGGcXJ6XQtVkCDUvYdYgYuOwCSRkUDBept0NGG RsRXQeGTE2PRMiPCZxKEUcJKzjGKWmKZP8NjNdXJTkCDBzPT9FVeZyBDVuArQ7LQQkNFSlQNSxxp4RUA AmNWXqGBJvVpUgCUBxQDCtQZmwNJEeRWW1FGy4WSPe ZSUmQN5VEqXbAJZdYtAlUkSvHBVnKZGxch1PMDYyMEJsSmC9BAOyLRElXRDyASzkBBCfSAL5ElvkGHYr DLXyZX5IBqEfDRTqWpo0PzYhDEDwFBGdoh8XWWRaZFBmBge1MIDjLCVjTYNtTMljCCFtNDO3BefkJKWa OZBeNV9CFsHsQXXwJuo0EiCvLZDeUFNrmz6VZPUcMJ JfWNF6KRFvBTXsUYDwIMhePIPkRLRlZCxdYYAxLNOtRE0NRaMcSKLxWPNyAEOxDHHiBIMofj8TSKXfNP M5SaCuDlZyOXNnLMFcXSgsIJMwLTTfJvH0GTOoPQBuUJ2ITkSzOEVtDJG6KESkZYChAGUirr0GAEMqVA K0UnY6RJWiKHJdQBZiXZtmVFYkKZW3PnM2EYAuTJTs JX2OEaJqVDEtDMW1CCKkORCsYERxxu6KTCRiQPQ8GNg6OASdGJGyXLKcLBc7hcXuxNDvNPt8MX0NK5Mp cuBeGEODQj8Kh579VMIxWPIxUw9PZ4srLm0qXWMfCCETJj1WGEn0BHKaSTFuUmC5IjIwHpQeWqBwWdEp SdOlIOU3CLQmEEN+EAa1OgNwUQYlDGzzNARsGVFwPD EpUiOtYhVbArq5NnPjLC4xNJJQDz9+MBtqeKUabEmtZCZYSmZ2HjR2EClsKUIUWj3J ID Date Data Source [id number] 11/17/2020 12:07:14 PM EST [facility] Name Value Range Interpretation Code Description Data Rosa rce(s) Supporting Document(s) Progress Note [facility] rvices NWMFGn8bMgAXDlIz26/OHKhpTOVdb1AnQKidOYw8YMvcUMUvN0HrEOT1pE1gFZA5XLxCXyDsNtPbRgUo lbm [file] MiWluwJpJcJX1DNw6BPsY5PMF3gOMiXc1HBuVeGqdQZaQnXW0FOWg= ID Date Data Source [id number] 11/10/2020 12:00:00 AM EST [facility] Elmer Kumar MD Patient Name: RIOS CORNEJO Date of : 1960[place] [address] Date of Exam: 11/10/2020#: Fax: [phone] EXAM: MRI THORACIC SPINE WITHOUT CONTRASTPROCEDURE INFORMATION:Exam: MR Thoracic Spine Without ContrastExam date and time: 11/10/2020 1:13 PM Age: 60 years oldClinical indication: Pain in thoracic spine; Patient HX: PT suffers fromsevere whole body spasms, PT was premedicated, best images possible.TECHNIQUE: Imaging protocol: Multiplanar magnetic resonance images of thethoracic spine without contrast.COMPARISON: No relevant prior studies available.FINDINGS:Vertebrae: There is a 1.7 cm high signal lesion within the right [id number] which measured only 5 mm in 2015. This was previously interpretedas a hemangioma. While this may represent a hemangioma, the significantincrease in size since prior study is concerning.Spinal cord: There is subtle increased signal and thinning of the thoraciccord at the T6 level. Discs/Spinal canal/Neural foramina: There aredegenerative changes throughout the thoracic spine including disc spacenarrowing, disc desiccation, and disc bulging. There is no significantspinal canal stenosis.Soft tissues: Unrema rkable.Other findings: The bone marrow is heterogeneous, more conspicuous thanprior study. This is a nonspecific finding. This can be seen in the settingof an infiltrative marrow process, including malignancy. There are multiplehigh signal lesions within several vertebra that have the appearance ofhemangioma.IMPRESSION:1. The bone marrow is heterogeneous, more conspicuous than prior study.This is a nonspecific finding. This can be seen in the setting of aninfiltrative marrow process, including malignancy. Please correlate withthe presence of any known malignancy.2. There are degenerative changes throughout the thoracic spine includingdisc space narrowing, disc desiccation, and disc bulging. There is nosignificant spinal canal stenosis.3. There is a 1.7 cm high signal lesion within the right T10 vertebra whichmeasured only 5 mm in 2015. This was previously interpreted as ahemangioma. While this may represent a hemangioma, the significant increasein size since prior study is concerning. Follow-up postcontrast MRI and CTare recommended.4. There is subtle increased signal and thinning of the thoracic cord atthe T6 level. This was reported previously. The appearance is similar toprior study.Thank you for allowing us to participate in the care of your patient.Dictated and Authenticated by: Dago Mason MD 11/10/2020 2:24 PM [place]TiffanieV/jmcTsilvia you for referring ANA CORNEJO to our office. Electronically Signed - [facility] 11/10/20 14:55 Name Value Range Interpretation Code Description Data Rosa rce(s) Supporting Document(s) ID Date Data Source [id number] 11/10/2020 12:00:00 AM EST [facility] Elmer Kumar MD Patient Name: RIOS CORNEJO St Date of : 1960[place] [address] Date of Exam: 11/10/2020#: Fax: [phone] EXAM: MRI CERVICAL SPINE WITHOUT CONTRASTPROCEDURE INFORMATION:Exam: MR Cervical Spine Without ContrastExam date and time: 11/10/2020 12:20 PM Age: 60 years oldClinical indication: Neck pain; Prior surgery; Surgery date: 6+ months;Surgery type: Cervical fusion; Patient HX: PT suffers from severe wholebody spasms, PT was premedicated. Best images possible.TECHNIQUE: Imaging protocol: Multiplanar magnetic resonance images of thecervical spine without contrast.COMPARISON: [facility] CERVICAL SPINE COMPLETE XRAY 05/11/2015 8:27 AMFINDINGS:Vertebrae: Ventral fixation plate and screws noted at C3 and C4. There arevertical rods with pedicle screws at C3, C4 and C6. There are correspondinglaminectomy defects. There is straightening of the normal cervicallordosis.Spinal cord: Normal signal. No cord compression.C2-C3: There is a shallow disc osteophyte complex. There is mild facethypertrophy. There is severe right and moderate to severe left neuralforaminal narrowing.C3-C4: There are fusion changes with corresponding laminectomy defect.Metallic artifact limits assessment. The spinal canal is patent.C4-C5: There are fusion changes with laminectomy. Metallic artifact limitsevaluation. The spinal canal is patent.C5-C6: There are fusion changes with laminectomy metallic artifact limitsevaluation. There is facet hypertrophy. There is moderate right and severeleft neural foraminal narrowing.C6-C7: There are fusion changes with laminectomy. There is a diffuse discosteophyte complex. There is facet hypertrophy. There is severe bilateralneural foraminal narrowing.C7-T1: There is a shallow disc osteophyte complex. There is facethypertrophy. There is mild bilateral neural foraminal narrowing.Vertebral arteries: Expected flow voids in the vertebral arteries.Soft tissues: Unremarkable.IMPRESSION:1. Changes reflecting multilevel fusion. Metallic artifact limitsevaluation.2. Degenerative disc disease and spondylosis, with multilevel moderate tosevere neural foraminal narrowing.Thank you for allowing us to participate in the care of your patient.Dictated and Authenticated by: Muriel Walls MD 11/10/2020 1:49 PMEastern Time ([place] & Jay[place])[facility]/Karen you for referring ANA CORNEJO to our office. Electronically Signed - [facility] 11/10/20 14:10 Name Value Range Interpretation Code Description Data Rosa rce(s) Supporting Document(s) ID Date Data Source [id number] 10/11/2020 12:59:36 PM EST [facility] Name Value Range Interpretation Code Description Data Rosa rce(s) Supporting Document(s) Progress Note [facility] rvices YXWSMk0jLxSSGtOd20/QENqqLCZpz0UkGVdzSYo4PRgxUVZzG8IgDRP5uN5uCSA2PLfHXiZhCwAlKnW2 lbm [file] ICAgICAgICAgICAgICAgICAgICAgICAgICAgICAgICAgICAgICAgICAgICAgICAgICAgICAgICAgICAg ICAgICAgICAgICAgICAgICAgICAgICAgICAgICAgICANCiAgICAgICAgICAgICAgICAgICAgICAgICAg ICAgICAgICAgICAgICAgICAgICAgICAgICAgICAgIC AgICAgICAgICAgICAgICAgICAgICAgICAgICAgICAgICAgICAgICAgICANCiAgICAgICAgICAgICAgIC AgICAgICAgICAgICAgICAgICAgICAgICAgICAgICAgICAgICAgICAgICAgICAgICAgICAgICAgICAgIC AgICAgICAgICAgICAgICAgICAgICAgICANCiAgICAg ICAgICAgICAgICAgICAgICAgICAgICAgICAgICAgICAgICAgICAgICAgICAgICAgICAgICAgICAgICAg ICAgICAgICAgICAgICAgICAgICAgICAgICAgICAgICAgICANCiAgICAgICAgICAgICAgICAgICAgICAg ICAgICAgICAgICAgICAgICAgICAgICAgICAgICAgIC AgICAgICAgICAgICAgICAgICAgICAgICAgICAgICAgICAgICAgICAgICAgICANCiAgICAgICAgICAgIC AgICAgICAgICAgICAgICAgICAgICAgICAgICAgICAgICAgICAgICAgICAgICAgICAgICAgICAgICAgIC AgICAgICAgICAgICAgICAgICAgICAgICAgICANCiAg ICAgICAgICAgICAgICAgICAgICAgICAgICAgICAgICAgICAgICAgICAgICAgICAgICAgICAgICAgICAg ICAgICAgICAgICAgICAgICAgICAgICAgICAgICAgICAgICAgICANCiAgICAgICAgICAgICAgICAgICAg ICAgICAgICAgICAgICAgICAgICAgICAgICAgICAgIC AgICAgICAgICAgICAgICAgICAgICAgICAgICAgICAgICAgICAgICAgICAgICAgICANCiAgICAgICAgIC AgICAgICAgICAgICAgICAgICAgICAgICAgICAgICAgICAgICAgICAgICAgICAgICAgICAgICAgICAgIC AgICAgICAgICAgICAgICAgICAgICAgICAgICAgICAN CiAgICAgICAgICAgICAgICAgICAgICAgICAgICAgICAgICAgICAgICAgICAgICAgICAgICAgICAgICAg ICAgICAgICAgICAgICAgICAgICAgICAgICAgICAgICAgICAgICAgICANCjw/xXXlG1kwvUTjveE9U1vv Wp3NEx6JIZ2eg0YpSSDlLGvdiyXqRhxUQyKsKJEoUg jTUbq2YZjxXS0KsFInV3QoY5FjHCscRG0SECXeVLVmaSQeQDVsTPPnOiP6XEZqPCgvPE3CbCVkGHsyTE XnUXBgIcNsXWVzFJGtGUQySZEiAZUCVZ1RZsMeK6OrjT27ZAVNZp2+VVgwdpUqTmeSDsG9JSSqy4UmCS q2CX8EMXJhNqudq3YqRDNyVUEHSXqmWL3SAKX8UTFp JDQwNa6ULLXmZ605pqVbKD8IOk6BNgMpAZ2ilo9MGZKuRZMbPuoFAgi4UHboSL3UoQTuMBaYbe8mwpFf prPAf6OfbaBcgNTDdTMyrRUvZKDPPBWnbJppFKQeDGGwIBGmCgptWiTqXMVtUOcsGAESPHjYOgMfQ5Zo e6WvYhV6EATmTvLpUGyeSHWyEmH0KY39mTifTB7VOF XdANUrVA18DAB9QLOdFy8LNr1UFfMmZD6ozo1NWGIeQYZxLzaBOdg8KPieRV9TlFPcI6ZqyBKyk7lYMl CpS7OUDHC5DNHgQz8PECRpWyDlQMJqCMjaJA2iFPSoGSHGmFmfcxE4BG5RXH7oatDjNF6YRaAjZe2kPy 5BEqPkV1MgL4ZlFPIrCBDOSJwyJF8SFVhiSZ1kXS0J v5ZTyMBexN8eqp5VSUZpIQVwUimaec1NSciqC5X0fFrpTNRcVegyWLCICMemGT8FDONvDWS9OJMpAQPj QBQMHsWfG76bVQ7LU0Eid09wQyP5VXPsXjEdCHtwAH23uWmmkcVttOOxsZooHT4YEw1+DQplbmRvYmoN JkuyLYSEIuAwRXFMJiKoQFOkLQSdILDcRpM8NlThEg 7MJEDrYIQcYGEjHrJvMWZjQGYwTVadFDXbIWUmXGh8CQEkZPPsMD7DKjDlRAUePVUmFsNzXRUpDQYxfz 6WOQEsJPOaKMU5KbMmYRVdBZIoSIpaMPTyFUDlOcg5IINpUKPqRC1KUuIcXSLmWTWqVWHhKJWiILLojb 7HJHIeAUScDIG6HrGlKQWhVSEgXNteNMUgOHE8EQNd VDBiJYUwJM6BJkToLMWuYQL0VDBdSVWqJFTydc7NBPMbMBBvPgI1JQZqAEKaOBJvRXroOTFrAFQ8GuPw NEBsBAVhMI2YQsQaJHJxSFv6PviyERYaMPNvvr6HZNDjVLNbPOa4LgFdWBJxNRWmUOwzGSLxICW5CYh5 OEKrLAJePQ9GOoKmZLWrJOsbBibaURMzWGIxbj2VZF UeDGUrSNYdKuGaEFJyBRGvSJwrVEBvGJXwBeX3CMVaMKNpID0KRjQmAEUfNXS0VArjHBKbCRVsyg0RQG EeXNEoKWp5HsRfCZBiMULmMOcpYCTmMYWnFWwdHMGqAMMkTY0RXrOzURPbQhIfSURsASBeBCWiab1VZH AcRWZhKjVpERSuKDMxYFGcCFwvPROmNTRwOzx1ZUEy ZPAjPR4NMrChMPEvTfK3WfJvQXHiUPDvsj2YXFClTQDmIhkoAZDnOGYeDTEsLAngAYOgFOL6AAv0FVSj WNHrOU6HBnSdEYHsXbWhXiKjYUIuYNPdhj8EWGSlGLQtBYBgZtNnDGOqVAJwPCfuWVCyDIQ4Fkg0MSVj HCRuYD2DRjCpHREiGuNvYtOeNZIhWEMqco0LHQJxBS JaZePpQxUjHDIbDPVwHBlyTODlNUB6Kgr5JIVqLIPoTF1LQpZvNXDzSiq9LqCxGLNrDFLiuf4TZCUzGU DcEWw8OANmZWRzYKFuXMnwOMQhDUVzZLQ3KWCsYVIuNS8OCyTjMWFaZYVbYXuxXFZqLFZlzt3EQGSsRW H8EFH3IlQzZDDkLPSrKTlrNDLsRYLiTZDnFYMbPZSs ZD6SLkCoNSRsSBHyZokeAFNwPQPytl6AKTApVKR3HeH6FNQxHFVoHMXtADqqRONfGTVfCqHeRRIxMOXk BY8GOwFmWZczXOXTHkl7IGhnX1w4CYX7Vf1JN3Dyn3GkWHAfMEGPQLhjGP5gahDbJEQjKe8VZ3rSOmzn MRFpGYbkDiHgOuJ5WRX2QAChOLblGPQjEXFwPQsiTO 6eUEHiCyH9C1YuIGVqFCN2ZQV4ACRiG2K8B5G3SKOjJ2W3NvKlZU4KGw9WZuZ2BGT9cHQvYe3WRAG1FY PUKlNwDC8GZXl= ID Date Data Source [id number] 10/11/2020 12:42:24 PM EST [facility] Name Value Range Interpretation Code Description Data Rosa rce(s) Supporting Document(s) Progress Note [facility] EIIRMx3yOgOGEkYe73/KCHzbHCZaa3YyNZliUZs7IJibVNUdV4DaYUA5xO0cHQA7PPvMNpJzPtXqBvA6 lbm [file] p6lgpyATN+//xGx3/Qffro/ZcMd+lJl0zqpDuhs [file] GsNjK4IJNoOYD8YAwqDAK7VmJ+PQ2rYIk+Hs3Wc4TuxaK2shXjTWanFKS2Mj2NFISDG6TCDm== ID Date Data Source [id number] 10/07/2020 08:36:00 AM EST MEDENT ([facility] Name Value Range Interpretation Code Description Data Rosa rce(s) Supporting Document(s) [facility] [place] [facility] test result MEDENT ([facility] ID Date Data Source [id number] 09/20/2020 08:37:00 AM EST [facility] Name Value Range Interpretation Code Description Data Rosa rce(s) Supporting Document(s) Progress Note [facility] OKYHEh3kDeNKUxRu67/GXYkaSWLla0HiAMxaVUt1XLsbRKStS4SdAGN1vS3aRFS0LNuQHzXyLzCrMmG3 lbm QaFaqKIhTiYWYzDdfEFdUmGWnqCglhwDIyAI9AlEP3KCIiX67fNZKgEUOuN4EbWVR2KwJ+Ns5JFSVccP YrIG7OJenPqD8ob3k7CL3d2L+myzCG7cq8kSp2DRFHuqb4mdCWwruuQzc7CGppt8xjRRuoi+lPLXnvpU YkS6kZw6/JCctlE56XIrIG28PyPknvk//pPgtD3/dd +d/xf0JylkO2k/9uh42W4tRa4c+ssIwvO9fUgoB/qL975l8/+Oja3b2jsvhr5vIJUaSBhg/y4/iyi6Pv 7iRju+ihzoq3wQz+8363w5Fo3IWvL+Rosy//EBf35ho7vxholYhcSm3e6RoZ2NQn12SE/2vjjYV13XMtq [file] 4+YCusaSZhlKvyKVMDQlY4CHH4HKgfRRTJXf1T ID Date Data Source [id number] 06/23/2020 09:40:00 AM EDT MEDENT ([facility] Name Value Range Interpretation Code Description Data Rosa rce(s) Supporting Document(s) Prostate specific Ag [Mass/volume] in Serum or Plasma 0.46 ng/mL 0.0- 4.0 MEDENT ([facility] ID Date Data Source [id number] 06/23/2020 09:40:00 AM EDT MEDENT ([facility] Name Value Range Interpretation Code Description Data Rosa rce(s) Supporting Document(s) Chol 305 mg/dL 0-200 Above high normal MEDENT ([facility] CHRONIC KIDNEY DISEASE STAGING PER NKF: MALE [...] DESIRABLE: <130 MG/DL <110 MG/DL BORDERLINE-HIGH RISK: 130- 159 MG/DL 110-129 MG/DL HIGH RISK: >160 MG/DL >130 MG/DL *CHILDREN AND ADOLESCENTS REPRESENTS INDIVIDUALA AGED 2-19 YEARS EXCLUSIVE. Trig 586 mg/dL 35-200 Above high normal MEDENT ([facility] CHRONIC KIDNEY DISEASE STAGING PER NKF: MALE [...] DESIRABLE: <130 MG/DL <110 MG/DL BORDERLINE-HIGH RISK: 130- 159 MG/DL 110-129 MG/DL HIGH RISK: >160 MG/DL >130 MG/DL *CHILDREN AND ADOLESCENTS REPRESENTS INDIVIDUALA AGED 2-19 YEARS EXCLUSIVE. Cholesterol in HDL [Mass/volume] in Serum or Plasma 56 mg/dL 35-55 Above high normal [facility] ([facility] CHRONIC KIDNEY DISEASE STAGING PER NKF: MALE [...] DESIRABLE: <130 MG/DL <110 MG/DL BORDERLINE-HIGH RISK: 130- 159 MG/DL 110-129 MG/DL HIGH RISK: >160 MG/DL >130 MG/DL *CHILDREN AND ADOLESCENTS REPRESENTS INDIVIDUALA AGED 2-19 YEARS EXCLUSIVE. Cho/HDL Ratio 5.5 Calc MEDENT ([facility] CHRONIC KIDNEY DISEASE STAGING PER NKF: MALE [...] DESIRABLE: <130 MG/DL <110 MG/DL BORDERLINE-HIGH RISK: 130- 159 MG/DL 110-129 MG/DL HIGH RISK: >160 MG/DL >130 MG/DL *CHILDREN AND ADOLESCENTS REPRESENTS INDIVIDUALA AGED 2-19 YEARS EXCLUSIVE. LDL_C Laboratory test result 75-129 Abnormal (applies to non -numeric results) MEDENT ([facility] CHRONIC KIDNEY DISEASE STAGING PER NKF: MALE [...] DESIRABLE: <130 MG/DL <110 MG/DL BORDERLINE-HIGH RISK: 130- 159 MG/DL 110-129 MG/DL HIGH RISK: >160 MG/DL >130 MG/DL *CHILDREN AND ADOLESCENTS REPRESENTS INDIVIDUALA AGED 2-19 YEARS EXCLUSIVE. ID Date Data Source [id number] 06/23/2020 09:40:00 AM JOSH FRANCOIS ([facility] Name Value Range Interpretation Code Description Data Rosa rce(s) Supporting Document(s) Glu 109 mg/dL 70-110 ALESSANDRO ([facility] CHRONIC KIDNEY DISEASE STAGING PER NKF: MALE [...] DESIRABLE: <130 MG/DL <110 MG/DL BORDERLINE-HIGH RISK: 130- 159 MG/DL 110-129 MG/DL HIGH RISK: >160 MG/DL >130 MG/DL *CHILDREN AND ADOLESCENTS REPRESENTS INDIVIDUALA AGED 2-19 YEARS EXCLUSIVE. Creat 0.9 mg/dL 0.7-1.2 MEDJUVENAL ([facility] CHRONIC KIDNEY DISEASE STAGING PER NKF: MALE [...] DESIRABLE: <130 MG/DL <110 MG/DL BORDERLINE-HIGH RISK: 130- 159 MG/DL 110-129 MG/DL HIGH RISK: >160 MG/DL >130 MG/DL *CHILDREN AND ADOLESCENTS REPRESENTS INDIVIDUALA AGED 2-19 YEARS EXCLUSIVE. BUN 19 mg/dL 8-23 [facility] ([facility] CHRONIC KIDNEY DISEASE STAGING PER NKF: MALE [...] DESIRABLE: <130 MG/DL <110 MG/DL BORDERLINE-HIGH RISK: 130- 159 MG/DL 110-129 MG/DL HIGH RISK: >160 MG/DL >130 MG/DL *CHILDREN AND ADOLESCENTS REPRESENTS INDIVIDUALA AGED 2-19 YEARS EXCLUSIVE. Na 136 mmol/L 136-145 [facility] CHRONIC KIDNEY DISEASE STAGING PER NKF: MALE [...] DESIRABLE: <130 MG/DL <110 MG/DL BORDERLINE-HIGH RISK: 130- 159 MG/DL 110-129 MG/DL HIGH RISK: >160 MG/DL >130 MG/DL *CHILDREN AND ADOLESCENTS REPRESENTS INDIVIDUALA AGED 2-19 YEARS EXCLUSIVE. CL 103.7 mmol/L 98.0-107.0 MEDENT ([facility] CHRONIC KIDNEY DISEASE STAGING PER NKF: MALE [...] DESIRABLE: <130 MG/DL <110 MG/DL BORDERLINE-HIGH RISK: 130- 159 MG/DL 110-129 MG/DL HIGH RISK: >160 MG/DL >130 MG/DL *CHILDREN AND ADOLESCENTS REPRESENTS INDIVIDUALA AGED 2-19 YEARS EXCLUSIVE. BUN/Creatinine Ratio 21.3 CALC [facility] ([facility] CHRONIC KIDNEY DISEASE STAGING PER NKF: MALE [...] DESIRABLE: <130 MG/DL <110 MG/DL BORDERLINE-HIGH RISK: 130- 159 MG/DL 110-129 MG/DL HIGH RISK: >160 MG/DL >130 MG/DL *CHILDREN AND ADOLESCENTS REPRESENTS INDIVIDUALA AGED 2-19 YEARS EXCLUSIVE. K 4.3 mmol/L 3.5-5.1 MEDENT ([facility] CHRONIC KIDNEY DISEASE STAGING PER NKF: MALE [...] DESIRABLE: <130 MG/DL <110 MG/DL BORDERLINE-HIGH RISK: 130- 159 MG/DL 110-129 MG/DL HIGH RISK: >160 MG/DL >130 MG/DL *CHILDREN AND ADOLESCENTS REPRESENTS INDIVIDUALA AGED 2-19 YEARS EXCLUSIVE. CA 8.7 mg/dL 8.6-10.2 [facility] CHRONIC KIDNEY DISEASE STAGING PER NKF: MALE [...] DESIRABLE: <130 MG/DL <110 MG/DL BORDERLINE-HIGH RISK: 130- 159 MG/DL 110-129 MG/DL HIGH RISK: >160 MG/DL >130 MG/DL *CHILDREN AND ADOLESCENTS REPRESENTS INDIVIDUALA AGED 2-19 YEARS EXCLUSIVE. Co2 16.5 mmol/L 22.0-29.0 Below low normal MEDENT ([facility] CHRONIC KIDNEY DISEASE STAGING PER NKF: MALE [...] DESIRABLE: <130 MG/DL <110 MG/DL BORDERLINE-HIGH RISK: 130- 159 MG/DL 110-129 MG/DL HIGH RISK: >160 MG/DL >130 MG/DL *CHILDREN AND ADOLESCENTS REPRESENTS INDIVIDUALA AGED 2-19 YEARS EXCLUSIVE. TP 6.6 g/dL 6.6-8.7 [facility] ([facility] CHRONIC KIDNEY DISEASE STAGING PER NKF: MALE [...] DESIRABLE: <130 MG/DL <110 MG/DL BORDERLINE-HIGH RISK: 130- 159 MG/DL 110-129 MG/DL HIGH RISK: >160 MG/DL >130 MG/DL *CHILDREN AND ADOLESCENTS REPRESENTS INDIVIDUALA AGED 2-19 YEARS EXCLUSIVE. Globulin 2.4 CALC [facility] ([facility] CHRONIC KIDNEY DISEASE STAGING PER NKF: MALE [...] DESIRABLE: <130 MG/DL <110 MG/DL BORDERLINE-HIGH RISK: 130- 159 MG/DL 110-129 MG/DL HIGH RISK: >160 MG/DL >130 MG/DL *CHILDREN AND ADOLESCENTS REPRESENTS INDIVIDUALA AGED 2-19 YEARS EXCLUSIVE. Alb 4.2 g/dL 3.5-5.2 [facility] ([facility] CHRONIC KIDNEY DISEASE STAGING PER NKF: MALE [...] DESIRABLE: <130 MG/DL <110 MG/DL BORDERLINE-HIGH RISK: 130- 159 MG/DL 110-129 MG/DL HIGH RISK: >160 MG/DL >130 MG/DL *CHILDREN AND ADOLESCENTS REPRESENTS INDIVIDUALA AGED 2-19 YEARS EXCLUSIVE. A/G Ratio 1.8 CALC [facility] ([facility] CHRONIC KIDNEY DISEASE STAGING PER NKF: MALE [...] DESIRABLE: <130 MG/DL <110 MG/DL BORDERLINE-HIGH RISK: 130- 159 MG/DL 110-129 MG/DL HIGH RISK: >160 MG/DL >130 MG/DL *CHILDREN AND ADOLESCENTS REPRESENTS INDIVIDUALA AGED 2-19 YEARS EXCLUSIVE. Alp 122.1 U/L 40-129 [facility] ([facility] CHRONIC KIDNEY DISEASE STAGING PER NKF: MALE [...] DESIRABLE: <130 MG/DL <110 MG/DL BORDERLINE-HIGH RISK: 130- 159 MG/DL 110-129 MG/DL HIGH RISK: >160 MG/DL >130 MG/DL *CHILDREN AND ADOLESCENTS REPRESENTS INDIVIDUALA AGED 2-19 YEARS EXCLUSIVE. Alt (SGPT) 45 U/L 0-41 Above high normal [facility] ([facility] CHRONIC KIDNEY DISEASE STAGING PER NKF: MALE [...] DESIRABLE: <130 MG/DL <110 MG/DL BORDERLINE-HIGH RISK: 130- 159 MG/DL 110-129 MG/DL HIGH RISK: >160 MG/DL >130 MG/DL *CHILDREN AND ADOLESCENTS REPRESENTS INDIVIDUALA AGED 2-19 YEARS EXCLUSIVE. Ast (Sgot) 56 U/L 0-40 Above high normal MEDENT ([facility] CHRONIC KIDNEY DISEASE STAGING PER NKF: MALE [...] DESIRABLE: <130 MG/DL <110 MG/DL BORDERLINE-HIGH RISK: 130- 159 MG/DL 110-129 MG/DL HIGH RISK: >160 MG/DL >130 MG/DL *CHILDREN AND ADOLESCENTS REPRESENTS INDIVIDUALA AGED 2-19 YEARS EXCLUSIVE. Tbili 0.45 mg/dL 0.0-1.2 [facility] ([facility] CHRONIC KIDNEY DISEASE STAGING PER NKF: MALE [...] DESIRABLE: <130 MG/DL <110 MG/DL BORDERLINE-HIGH RISK: 130- 159 MG/DL 110-129 MG/DL HIGH RISK: >160 MG/DL >130 MG/DL *CHILDREN AND ADOLESCENTS REPRESENTS INDIVIDUALA AGED 2-19 YEARS EXCLUSIVE. Anion Gap 20 mmol/L [facility] CHRONIC KIDNEY DISEASE STAGING PER NKF: MALE [...] DESIRABLE: <130 MG/DL <110 MG/DL BORDERLINE-HIGH RISK: 130- 159 MG/DL 110-129 MG/DL HIGH RISK: >160 MG/DL >130 MG/DL *CHILDREN AND ADOLESCENTS REPRESENTS INDIVIDUALA AGED 2-19 YEARS EXCLUSIVE. Osmolality-Calculated 274.9 CALC MED ENT ([facility] CHRONIC KIDNEY DISEASE STAGING PER NKF: MALE [...] DESIRABLE: <130 MG/DL <110 MG/DL BORDERLINE-HIGH RISK: 130- 159 MG/DL 110-129 MG/DL HIGH RISK: >160 MG/DL >130 MG/DL *CHILDREN AND ADOLESCENTS REPRESENTS INDIVIDUALA AGED 2-19 YEARS EXCLUSIVE. eGFR Non-Afr. [place] 93 # MEDENT ([facility] CHRONIC KIDNEY DISEASE STAGING PER NKF: MALE [...] DESIRABLE: <130 MG/DL <110 MG/DL BORDERLINE-HIGH RISK: 130- 159 MG/DL 110-129 MG/DL HIGH RISK: >160 MG/DL >130 MG/DL *CHILDREN AND ADOLESCENTS REPRESENTS INDIVIDUALA AGED 2-19 YEARS EXCLUSIVE. eGFR 107 # MEDENT ( [facility] CHRONIC KIDNEY DISEASE STAGING PER NKF: MALE [...] DESIRABLE: <130 MG/DL <110 MG/DL BORDERLINE-HIGH RISK: 130- 159 MG/DL 110-129 MG/DL HIGH RISK: >160 MG/DL >130 MG/DL *CHILDREN AND ADOLESCENTS REPRESENTS INDIVIDUALA AGED 2-19 YEARS EXCLUSIVE. Procedure Social History Code Duration Value Status Description Data Source(s ) Alcohol intake 11/17/2020 12:00:00 AM EST Current drinker of al cohol (finding) [facility] Tobacco use and exposure 10/11/2020 12:00:00 AM EST Never used [facility] Tobacco smoking status NVIS 10/11/2020 12:00:00 AM EST Never smoker [facility] Alcohol intake 10/11/2020 12:00:00 AM EST Current drinker of al cohol (finding) [facility] Vital Signs ID Date Data Source UNK Name Value Range Interpretation Code Description Data Source(s) Systolic blood pressure 140 mm[Hg] 140 mm[Hg] M EDENT ([facility] Heart rate 81 /min 81 /min MEDENT ([facility] Diastolic blood pressure 70 mm[Hg] 70 mm[Hg] MEDENT ([facility] Body height 71 [in_i] 71 [in_i] MED[facility] ([facility] 5'11" Body temperature 97.7 [degF] 97.7 [degF] MEDENT ([facility] Respiratory rate 16 /min 16 /min MEDENT ( [facility] Body weight 201.00 [lb_av] 201.00 [lb_av] MEDEN T ([facility] [place] body weight 172 [lb_av] 172 [lb_av] MEDEN T ([facility] Body mass index (BMI) [Ratio] 28.0 kg/m2 28.0 k g/m2 MEDENT ([facility] Oxygen saturation in Arterial blood by Pulse oximetry 98 % 98 % MEDENT ([facility] [place] body weight 172 [lb_av] 172 [lb_av] MEDEN T ([facility] Respiratory rate 18 /min 18 /min MEDENT ( [facility] Body height 71 [in_i] 71 [in_i] MEDENT ([facility] 5'11" Systolic blood pressure 124 mm[Hg] 124 mm[Hg] M EDENT ([facility] Heart rate 100 /min 100 /min MEDENT ([facility] Body weight 198.00 [lb_av] 198.00 [lb_av] MEDEN T ([facility] Body mass index (BMI) [Ratio] 27.6 kg/m2 27.6 k g/m2 MEDENT ([facility] Oxygen saturation in Arterial blood by Pulse oximetry 97 % 97 % MEDENT ([facility] Diastolic blood pressure 80 mm[Hg] 80 mm[Hg] MEDENT ([facility] Body temperature 98.0 [degF] 98.0 [degF] MEDENT ([facility] Systolic blood pressure 124 mm[Hg] 124 mm[Hg] M EDENT ([facility] Diastolic blood pressure 84 mm[Hg] 84 mm[Hg] MEDENT ([facility] Respiratory rate 16 /min 16 /min MEDENT ( [facility] Body height 71 [in_i] 71 [in_i] MEDENT ([facility] 5'11" Body temperature 98.2 [degF] 98.2 [degF] MEDENT ([facility] Oxygen saturation in Arterial blood by Pulse oximetry 96 % 96 % MEDENT ([facility] Heart rate 92 /min 92 /min MEDENT ([facility] Body weight 202.50 [lb_av] 202.50 [lb_av] MEDEN T ([facility] [place] body weight 172 [lb_av] 172 [lb_av] MEDEN T ([facility] Body mass index (BMI) [Ratio] 28.2 kg/m2 28.2 k g/m2 MEDENT ([facility] Body height 71 [in_i] 71 [in_i] MEDENT ([facility] 5'11" Heart rate 96 /min 96 /min MEDENT ([facility] Respiratory rate 20 /min 20 /min MEDENT ( [facility] Systolic blood pressure 124 mm[Hg] 124 mm[Hg] M JOSÉ MIGUEL ([facility] Diastolic blood pressure 88 mm[Hg] 88 mm[Hg] MEDENT ([facility] Body temperature 98.3 [degF] 98.3 [degF] MEDENT ([facility] [place] body weight 172 [lb_av] 172 [lb_av] MEDEN T ([facility] Body weight 199.00 [lb_av] 199.00 [lb_av] MEDEN T ([facility] Body mass index (BMI) [Ratio] 27.8 kg/m2 27.8 k g/m2 MEDJUVENAL ([facility] Oxygen saturation in Arterial blood by Pulse oximetry 97 % 97 % ALESSANDRO ([facility] [place] body weight 172 [lb_av] 172 [lb_av] MEDEN T ([facility] Body temperature 97.6 [degF] 97.6 [degF] MEDENT ([facility] Heart rate 84 /min 84 /min ALESSANDRO ([facility] Respiratory rate 16 /min 16 /min MEDJUVENAL ( [facility] Body height 71 [in_i] 71 [in_i] ALESSANDRO ([facility] 5'11" Body weight 200.00 [lb_av] 200.00 [lb_av] MEDEN T ([facility] Body mass index (BMI) [Ratio] 27.9 kg/m2 27.9 k g/m2 MEDENT ([facility] Oxygen saturation in Arterial blood by Pulse oximetry 98 % 98 % ALESSANDRO ([facility] Systolic blood pressure 122 mm[Hg] 122 mm[Hg] M JOSÉ MIGUEL ([facility] Diastolic blood pressure 80 mm[Hg] 80 mm[Hg] ALESSANDRO ([facility] ID Date Data Source [id number] 11/17/2020 12:07:19 PM EST [facility] Name Value Range Interpretation Code Description Data Source(s) WEIGHT 195 lb 195 lb [facility] HEIGHT 70 in 70 in [facility]
[2021-08-03 15:36] LABS: BASO % 0.1 % (0.0-1.0); EOS % 0.1 % (0.0-3.0); HEMATOCRIT 42.4 % (42.0-52.0); HEMOGLOBIN 14.3 g/dl (13.5-17.5); LYMPH # 1.4 10^3/uL (1.5-5.0); LYMPH % 17.9 % (24.0-44.0); MEAN CORPUSCULAR HEMOGLOBIN 32.4 pg (27.0-33.0); MEAN CORPUSCULAR HGB CONC 33.7 g/dl (32.0-36.5); MEAN CORPUSCULAR VOLUME 96.1 fl (80.0-96.0); MONO # 0.6 10^3/uL (0.0-0.8); NEUTROPHILS # 5.9 10^3/uL (1.5-8.5); NEUTROPHILS % 73.6 % (36.0-66.0); PLATELET COUNT, AUTOMATED 220 10^3/uL (150-450); RED BLOOD COUNT 4.41 10^6/uL (4.30-6.10)
--- NOTE | 2021-08-03 15:38 | REP ---
INDICATION: CHEST PAIN. COMPARISON: 02/09/2020 TECHNIQUE: Portable FINDINGS: The technique utilized in obtaining the radiograph has magnified the cardiac silhouette and accentuated the interstitial markings. The superior mediastinal structures are midline. The cardiac silhouette is unremarkable in size, shape, and position. The diaphragmatic surfaces of the lungs are regular, and the costophrenic angles are clear. The pulmonary walters are clear. The imaged osseous structures are intact. IMPRESSION: There is no acute cardiopulmonary disease. <Electronically signed by Cornelio Wu > 08/03/21 [id number]
[2021-08-03 16:12] LABS: ALBUMIN 3.6 GM/DL (3.2-5.2); ALT/SGPT 44 U/L (12-78); BILIRUBIN,DIRECT 0.3 MG/DL (0.0-0.2); BILIRUBIN,TOTAL 1.3 MG/DL (0.2-1.0); BLOOD UREA NITROGEN 8 MG/DL (7-18); CALCIUM LEVEL 9.1 MG/DL (8.8-10.2); CARBON DIOXIDE LEVEL 26 MEQ/L (21-32); CHLORIDE LEVEL 104 MEQ/L (98-107); CK-MB VALUE MASS < 1.0 NG/ML (<3.6); CPK CREATINE PHOSPHOKINASE 58 U/L (39-308); CREATININE FOR GFR 0.91 MG/DL (0.70-1.30); GLOMERULAR FILTRATION RATE > 60.0 (>49); GLUCOSE, FASTING 101 MG/DL (70-100); LIPASE 239 U/L (73-393); MB/CK RELATIVE INDEX 1.72 (< OR =4); POTASSIUM SERUM 3.8 MEQ/L (3.5-5.1); SODIUM LEVEL 138 MEQ/L (136-145); TOTAL PROTEIN 7.9 GM/DL (6.4-8.2); TROPONIN I < 0.02 NG/ML (< 0.10)
--- OUTSIDE RECORDS SUMMARY | 2021-08-03 17:49 | CCD ---
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 Care Envelope Adjuster Name Role Phone Stacy, A Khalid Unavailable [phone] Stacy, A Khalid Unavailable [phone] Stacy, A Khalid Unavailable [phone] Stacy, A Khalid Unavailable [phone] Stacy, A Khalid Unavailable +[phone] Stacy, A Khalid Unavailable [phone] Stacy, A Khalid Unavailable [phone] Stacy, A Khalid Unavailable [phone] Stacy, A Khalid Unavailable [phone] Stacy, A Khalid Unavailable +[phone] Stacy, A Khalid Unavailable +[phone] Stacy, A Khalid Unavailable [phone] Stacy, A Khalid Unavailable [phone] Stacy, A Khalid Unavailable [phone] Stacy, A Khalid Unavailable [phone] Stacy, A Khalid Unavailable [phone] Stacy, A Khalid Unavailable [phone] Stacy, A Khalid Unavailable [phone] Stacy, A Khalid Unavailable [phone] Stacy, A Khalid Unavailable +[phone] Stacy, A Khalid Unavailable [phone] Stacy, A Khalid Unavailable [phone] Stacy, A Khalid Unavailable [phone] Stacy, A Khalid Unavailable [phone] Stacy, A Khalid Unavailable [phone] Stacy, A Khalid Unavailable [phone] Stacy, A Khalid Unavailable [phone] Stacy, A Khalid Unavailable [phone] Stacy, A Khalid Unavailable [phone] Stacy, A Khalid Unavailable +[phone] Stacy, A Khalid Unavailable +[phone] Stacy, A Khalid Unavailable +[phone] Stacy, A Khalid Unavailable +[phone] Stacy, A Khalid Unavailable +[phone] Stacy, A Khalid Unavailable +[phone] Stacy, A Khalid Unavailable +[phone] Stacy, A Khalid Unavailable +[phone] Stacy, A Khalid Unavailable +[phone] Stacy, A Khalid Unavailable +[phone] Stacy, A Khalid Unavailable [phone] Ziyad SANDS MD Unavailable Unavailable Ziyad SANDS [...] is protected by Article 27-F of the [facility] Public Health law. If you continue you may have access to information: Regarding HIV / AIDS; Provided by facilities licensed or operated by the [facility] Office of Mental Health; or Provided by the [facility] Office for People With Developmental Disabilities. If such information is present, then the following [facility] mandated warning applies: This information has been [...] law may result in a fine or detention sentence or both. A general authorization for the release of medical or other information is NOT sufficient authorization for further disc losure. Allergies and Adverse Reactions Type Description Substance Reaction Status Data Source(s ) Propensity to adverse reactions NO KNOWN ALLERGIES NO KNOWN ALLERGIES [facility] Propensity to adverse reactions ALLERGIES NOT ON FILE ALLERGIES NOT O N FILE [facility] Family History Family Member Name Family Member Gender Family Member Status Date o f Status Description Data Source(s) Unknown Male Diagnosis 08/22/2018 12:00:00 AM EST [facility] ([facility]) Unknown Female Problem [facility] ([facility], ) Unknown Female Encounters Encounter Providers Location Date Indications Data Source(s ) Outpatient Attender: SUNITA Arnold Office 10:00:00 AM EDT [facility] ([facility] Outpatient Attender: SUNITA Arnold Office 10:00:00 AM EDT [facility] ([facility] Outpatient Attender: Karthik Kumar 11:30:38 AM EST - 11/17/2020 12:08:31 PM EST Neck Pain [facility] Neck Pain Patient discharged. Outpatient 11/17/2020 10:44:47 AM EST - 021 11:59:00 PM EST [facility] Patient discharged. Outpatient Attender: Karthik Porterhi 0 12:40:51 PM EST - 10/11/2020 01:46:54 PM EST Neck Pain [facility] Neck Pain Patient discharged. Outpatient Attender: SUNITA Quinnwn Office 10:15:00 AM EST [facility] ([facility] 09/20/2020 08:37:00 AM EST [facility] Outpatient Attender: SUNITA Arnold Office 11/2019 10:15:00 AM EST [facility] ([facility] Outpatient Attender: SUNITA Arnold Office 06/2020 09:15:00 AM EDT [facility] ([facility] Immunizations Vaccine Date Status Description Data Source(s) New in 2012. IIV4 07/06/2021 09:22:00 AM EDT completed [facility] ([facility] New in 2012. IIV4 06/23/2020 10:55:00 AM EDT completed [facility] ([facility] Medications Medication Brand [...] HCL 07/04/2021 12:00:00 AM EDT active [facility] ([facility] 50 mg 07/01/2021 12:00:00 AM [...] Hydrocodone Bitartrate 5 MG Oral Tabl et [[place]] [place] 06/08/2021 12:00:00 AM EDT ORAL active [facility] ([facility] Acetaminophen 325 MG / Hydrocodone [...] 02/07/2021 12:00:00 AM EDT ORAL active [facility] ([facility] 40 mg 02/07/2021 12:00:00 AM [...] prior to procedure, may repeat 1 time. [facility] Take 1 tab po q 1/2hr prior to procedure , may repeat 1 time. Diazepam 5 MG Oral Tablet diazePAM (VALIUM) 5 mg table t diazePAM (VALIUM) 5 mg tablet 11/10/2020 12:00:00 AM EST completed Take 1 tab po q 1/2hr prior to procedure, may repeat 1 time. [facility] Take 1 tab po q 1/2hr prior to procedure , may repeat 1 time. 5-325 mg 11/10/2020 12:00:00 AM EST tablet 60 TAKE ONE TABLET BY MOUTH EVERY 8 HOURS NEEDED MAXIMUM DAILY DOSE = 2 TABLETS TAKE ONE TABLET BY MOUTH EVERY 8 HOURS NEEDED MAXIMUM DAILY DOSE = 2 TABLETS SOLD: 11/10/2020 [facility] Diazepam 5 MG Oral Tablet diazePAM (VALIUM) 5 mg table t diazePAM (VALIUM) 5 mg tablet 11/10/2020 12:00:00 AM EST completed Take 1 tab po q 1/2hr prior to procedure, may repeat 1 time. [facility] Take 1 tab po q 1/2hr prior to procedure , may repeat 1 time. 5 mg 11/06/2020 12:00:00 AM EST tablet 2 TAKE 1 TABLET BY MOUTH 1/2 HOUR BEFORE MRI, MAY REPEAT ONE DOSE MAXIMUM DAILY DOSE = 2 TABLETS TAKE 1 TABLET BY MOUTH 1/2 HOUR BEFORE MRI, MAY REPEAT ONE DOSE MAXIMUM DAILY DOSE = 2 TABLETS SOLD: 11/07/2020 [facility] Diazepam 5 MG Oral Tablet diazePAM (VALIUM) 5 mg table t diazePAM (VALIUM) 5 mg tablet 11/05/2020 12:00:00 AM EST compl eted Cervical stenosis of spinal canal Take one pill 1/2 before mri, may repeat x 1 [facility] Cervical stenosis of spinal canal Take one pill 1/2 before mri, may repeat x 1 Lorazepam 0.5 MG Oral Tablet Lorazepam 11/05/2020 12:00:00 AM EST ORAL active [facility] ([facility] Diazepam 5 MG Oral Tablet diazePAM (VALIUM) 5 mg table t diazePAM (VALIUM) 5 mg tablet 11/05/2020 12:00:00 AM EST compl eted Cervical stenosis of spinal canal Take one pill 1/2 before mri, may repeat x 1 [facility] Cervical stenosis of spinal canal Take one pill 1/2 before mri, may repeat x 1 Diazepam 5 MG Oral Tablet diazePAM (VALIUM) 5 mg table t diazePAM (VALIUM) 5 mg tablet 11/05/2020 12:00:00 AM EST compl eted Cervical stenosis of spinal canal Take one pill 1/2 before mri, may repeat x 1 [facility] Cervical stenosis of spinal canal Take one [...] [facility] benzonatate 100 MG Oral Capsule [Tessaldonovan Fitzpatrick] [place] la[place] 08/16/2020 12:00:00 AM EST ORAL active M EDENT ([facility] Zithromax Z-Delonte Zithromax Z-Delonte 08/16/2020 12:00:00 AM EST ORAL completed [facility] (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 Compensation [id number] Self BLUE CROSS GUILLEN PLAN [id number] SP [id number] HMO BLUE [id number] SP [id number] BLUE CHOICE OPTIONS 7 [id number] [facility] Community Plan Commercial [id number] Self [facility] I [id number] Self [id number] [place] Medig[place] Part B [id number] Self MEDICARE [id number] SP [id number] MEDICARE [id number] SP [id number] A MEDICARE [id number] SP [id number] A MEDICARE MEDICAID [facility] Health Maintenance Organization (HMO) [id number] Self [place] MEDICARE PART B C [id number] S [id number] MEDICARE [id number] SP [id number] A MEDICARE [id number] SP [id number] A MEDICAID UNAVAILABLE UNAVAILA BLE [facility](MCA[facility]) O [id number] S [id number] MEDICARE [id number] SP [id number] SELF PAY [id number] SP [id number] UNHC COMMUNITY PLAN MCDO [id number] SP [id number] UNHC COMMUNITY PLAN MCDO [id number] SP [id number] MEDICAID 3 [id number] 1 [id number] SELFPAY 5 UNAVAILABLE 1 UNAVAILA BLE BLUE CHOICE OPTN FHP O [id number] S [id number] EXCELLUS BCBS P [id number] [place] [id number] SP [id number] M O UNAVAILABLE UNAVAILA BLE MEDICARE C [id number] S [id number] NGS MEDICARE NEW HAMPHIR O [id number] S [id number] MEDICAID [id number] SP [id number] MEDICAID M [id number] S [id number] Medicaid [place] Medig[place] Part B [id number] Self [id number] [facility] Medigap Part B [id number] Self [id number] [place] Part B [id number] Self [id number] [place] Medicare Primary [id number] Self [id number] MEDICARE C [id number] S [id number] A [facility] PART B C [id number] S [id number] Medicare [facility] Medicare Primary [id number] Self Medicaid [facility] Part B [id number] Self Problems, Conditions, and Diagnoses Code Display Name Description Problem Type Effective Dates Data Source(s) M47.816 Spondylosis without myelopathy or radicu lopathy, lumbar region Spondylosis without myelopathy or radiculopathy, lumbar region Diagnosis 11/17/2020 11:30:[address] [facility] M41.20 Other idiopathic scoliosis, site unspeci fied Other idiopathic scoliosis, site unspecified Diagnosis 11/17/2020 11:30:[address] [facility] Z98.1 Arthrodesis status Arthrodesis status Diagnosis 12/2020 11:30:[address] [facility] Neck Pain Neck Pain Diagnosis 11/17/2020 11:30:38 AM [facility] 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, thoracic region Spondylosis without myelopathy or radiculopathy, thoracic region Diagnosis 11/17/2020 10:44:[address] [facility] M48.02 Spinal stenosis, cervical region Spinal stenosis , cervical region Diagnosis 11/17/2020 10:44:47 AM EST [facility] M21.371 Foot drop, right foot Foot drop, right foot Diagnosis 10/11/2020 12:40:[address] [facility] Surgeries/Procedures Procedure Description Date Indications Data Source(s) OFFICE OUTPATIENT VISIT 25 MINUTES 08/01/2021 12:00:00 AM EDT [facility] ([facility] OFFICE OUTPATIENT VISIT 25 MINUTES 02/07/2021 12:00:00 AM EDT [facility] ([facility] XR SCOLIOSIS SERIES XR SCOLIOSIS SERIES 11/17/2020 11:24:[address] [facility] GENERAL SUPPLY GENERAL SUPPLY 10/11/2020 12:59:[address] [facility] Results ID Date Data Source [id number] 08/01/2021 10:13:00 AM EDT [facility] ([facility] Name Value Range Interpretation Code Description Data Rosa rce(s) Supporting Document(s) WBC 5.9 10E3/uL 4.1-10.9 [facility] ([facility] NORMAL RANGES Age WBC RBC [...] HCT IS 5% LESS SOURCE FOR DATA: [employer] 1800 OPERATION MANUAL( AUTOMATED BLOOD COUNTS AND [...] 2-19 YEARS EXCLUSIVE. RBC 4.20 10E6/uL 4.20-6.30 [employer] ([facility] NORMAL RANGES Age WBC RBC [...] HCT IS 5% LESS SOURCE FOR DATA: [employer] 1800 OPERATION MANUAL( AUTOMATED BLOOD COUNTS AND [...] 2-19 YEARS EXCLUSIVE. HGB 13.4 g/dL 12.0-18.0 [facility] ([facility] NORMAL [...] HCT IS 5% LESS SOURCE FOR DATA: [employer] 1800 OPERATION MANUAL( AUTOMATED BLOOD COUNTS AND [...] 2-19 YEARS EXCLUSIVE. HCT 40.1 % 37.0-51.0 [facility] ([facility] NORMAL RANGES [...] HCT IS 5% LESS SOURCE FOR DATA: [employer] 1800 OPERATION MANUAL( AUTOMATED BLOOD COUNTS AND [...] 2-19 YEARS EXCLUSIVE. MCV 95.5 fL 80.0-97.0 [facility] ([facility] NORMAL RANGES [...] HCT IS 5% LESS SOURCE FOR DATA: [employer] 1800 OPERATION MANUAL( AUTOMATED BLOOD COUNTS AND [...] HCT IS 5% LESS SOURCE FOR DATA: [employer] 1800 OPERATION MANUAL( AUTOMATED BLOOD COUNTS AND [...] 2-19 YEARS EXCLUSIVE. PLT 247 10E3/uL 140-[address] [facility] NORMAL RANGES Age WBC RBC HGB [...] HCT IS 5% LESS SOURCE FOR DATA: [employer] 1800 OPERATION MANUAL( AUTOMATED BLOOD COUNTS AND [...] 2-19 YEARS EXCLUSIVE. MCHC 33.4 g/dL 31.0-36.[address] [facility] NORMAL RANGES [...] HCT IS 5% LESS SOURCE FOR DATA: [employer] 1800 OPERATION MANUAL( AUTOMATED BLOOD COUNTS AND [...] 2-19 YEARS EXCLUSIVE. RDW-CV 12.2 % 11.5-14.5 [facility] ([facility] NORMAL [...] HCT IS 5% LESS SOURCE FOR DATA: [employer] 1800 OPERATION MANUAL( AUTOMATED BLOOD COUNTS AND [...] 2-19 YEARS EXCLUSIVE. Neut% 65.6 % 37.0-92.0 [facility] ([facility] NORMAL RANGES [...] HCT IS 5% LESS SOURCE FOR DATA: [employer] 1800 OPERATION MANUAL( AUTOMATED BLOOD COUNTS AND [...] 2-19 YEARS EXCLUSIVE. Lym% 27.5 % 10.0-58.[address] [facility] ([facility] NORMAL RANGES [...] HCT IS 5% LESS SOURCE FOR DATA: [employer] 1800 OPERATION MANUAL( AUTOMATED BLOOD COUNTS AND [...] 2-19 YEARS EXCLUSIVE. Lym# 1.6 10E3/uL 0.6-4.1 [facility] ([facility] NORMAL RANGES Age WBC RBC [...] HCT IS 5% LESS SOURCE FOR DATA: [employer] 1800 OPERATION MANUAL( AUTOMATED BLOOD COUNTS AND [...] 2-19 YEARS EXCLUSIVE. MXD% 6.9 % 0.1-24.[address] [facility] ([facility] NORMAL RANGES [...] HCT IS 5% LESS SOURCE FOR DATA: [employer] 1800 OPERATION MANUAL( AUTOMATED BLOOD COUNTS [...] 2-19 YEARS EXCLUSIVE. Neut# 3.9 % 2.0-7.[address] [facility] ([facility] NORMAL RANGES [...] HCT IS 5% LESS SOURCE FOR DATA: [employer] 1800 OPERATION MANUAL( AUTOMATED BLOOD COUNTS AND [...] 2-19 YEARS EXCLUSIVE. MXD# 0.4 10E3/uL 0.0-1.[address] [facility] ([facility] NORMAL RANGES Age WBC RBC [...] HCT IS 5% LESS SOURCE FOR DATA: [employer] 1800 OPERATION MANUAL( AUTOMATED BLOOD COUNTS AND [...] 2-19 YEARS EXCLUSIVE. MPV 9.4 fL 9.0-13.0 [facility] ([facility] NORMAL RANGES [...] HCT IS 5% LESS SOURCE FOR DATA: [employer] 1800 OPERATION MANUAL( AUTOMATED BLOOD COUNTS AND [...] 2-19 YEARS EXCLUSIVE. ID Date Data Source [id number] 08/01/2021 10:13:00 AM EDT [facility] ([facility] Name Value Range Interpretation Code Description Data Rosa rce(s) Supporting Document(s) Trig 321 mg/dL 35-200 Above high normal [facility] ([facility] [...] HCT IS 5% LESS SOURCE FOR DATA: [employer] 1800 OPERATION MANUAL( AUTOMATED BLOOD COUNTS AND [...] ADOLESCENTS REPRESENTS INDIVIDUALA AGED 2-19 YEARS EXCLUSIVE. Chol 264 mg/dL 0-200 Above high normal [facility] ([facility] NORMAL RANGES [...] HCT IS 5% LESS SOURCE FOR DATA: [employer] 1800 OPERATION MANUAL( AUTOMATED BLOOD COUNTS AND [...] HCT IS 5% LESS SOURCE FOR DATA: [employer] 1800 OPERATION MANUAL( AUTOMATED BLOOD COUNTS AND [...] 2-19 YEARS EXCLUSIVE. LDL_C 127 Calc 75-129 [facility] ([facility] NORMAL [...] HCT IS 5% LESS SOURCE FOR DATA: [employer] 1800 OPERATION MANUAL( AUTOMATED BLOOD COUNTS AND [...] 2-19 YEARS EXCLUSIVE. Cho/HDL Ratio 3.6 Calc [facility] ([facility] NORMAL RANGES Age WBC RBC HGB [...] HCT IS 5% LESS SOURCE FOR DATA: [employer] 1800 OPERATION MANUAL( AUTOMATED BLOOD COUNTS AND [...] 2-19 YEARS EXCLUSIVE. ID Date Data Source [id number] 08/01/2021 10:13:00 AM JOSH FRANCOIS ([facility] Name Value Range Interpretation Code Description Data Rosa rce(s) Supporting Document(s) Glu 103 mg/dL 70-110 [facility] ([facility] NORMAL RANGES [...] HCT IS 5% LESS SOURCE FOR DATA: [employer] 1800 OPERATION MANUAL( AUTOMATED BLOOD COUNTS AND [...] AGED 2-19 YEARS EXCLUSIVE. BUN 10 mg/dL 8-[address] [facility] [facility] ([facility] NORMAL RANGES [...] HCT IS 5% LESS SOURCE FOR DATA: [employer] 1800 OPERATION MANUAL( AUTOMATED BLOOD COUNTS AND [...] 2-19 YEARS EXCLUSIVE. Creat 0.8 mg/dL 0.7-1.[address] [facility] ([facility] NORMAL RANGES [...] HCT IS 5% LESS SOURCE FOR DATA: [employer] 1800 OPERATION MANUAL( AUTOMATED BLOOD COUNTS AND [...] AGED 2-19 YEARS EXCLUSIVE. BUN/Creatinine Ratio 12.9 [facility] ([facility] NORMAL RANGES Age WBC [...] HCT IS 5% LESS SOURCE FOR DATA: [employer] 1800 OPERATION MANUAL( AUTOMATED BLOOD COUNTS AND [...] 2-19 YEARS EXCLUSIVE. Na 139 mmol/L 136-145 [facility] ([facility] NORMAL [...] HCT IS 5% LESS SOURCE FOR DATA: [employer] 1800 OPERATION MANUAL( AUTOMATED BLOOD COUNTS AND [...] 2-19 YEARS EXCLUSIVE. CL 104.0 mmol/L 98.0-107.0 [facility] ([facility] NORMAL RANGES Age WBC RBC HGB [...] HCT IS 5% LESS SOURCE FOR DATA: [employer] 1800 OPERATION MANUAL( AUTOMATED BLOOD COUNTS [...] 2-19 YEARS EXCLUSIVE. K 4.3 mmol/L 3.5-5.[address] [facility] ([facility] NORMAL RANGES [...] HCT IS 5% LESS SOURCE FOR DATA: [employer] 1800 OPERATION MANUAL( AUTOMATED BLOOD COUNTS AND [...] Co2 19.0 mmol/L 22.0-29.0 Below low normal [facility] ([facility] NORMAL RANGES [...] HCT IS 5% LESS SOURCE FOR DATA: [employer] 1800 OPERATION MANUAL( AUTOMATED BLOOD COUNTS AND [...] 2-19 YEARS EXCLUSIVE. CA 8.9 mg/dL 8.6-10.[address] [facility] ([facility] NORMAL RANGES [...] HCT IS 5% LESS SOURCE FOR DATA: [employer] 1800 OPERATION MANUAL( AUTOMATED BLOOD COUNTS [...] 3.5-5.2 [facility] ([facility] NORMAL [...] HCT IS 5% LESS SOURCE FOR DATA: [employer] 1800 OPERATION MANUAL( AUTOMATED BLOOD COUNTS AND [...] 2-19 YEARS EXCLUSIVE. A/G Ratio 1.[address] [facility] NORMAL RANGES Age WBC RBC [...] HCT IS 5% LESS SOURCE FOR DATA: [employer] 1800 OPERATION MANUAL( AUTOMATED BLOOD COUNTS AND [...] 2-19 YEARS EXCLUSIVE. TP 6.9 g/dL 6.6-8.[address] [facility] ([facility] NORMAL RANGES [...] HCT IS 5% LESS SOURCE FOR DATA: [employer] 1800 OPERATION MANUAL( AUTOMATED BLOOD COUNTS [...] (SGPT) 42 U/L 0-41 Above high normal [facility] (Family [...] HCT IS 5% LESS SOURCE FOR DATA: [employer] 1800 OPERATION MANUAL( AUTOMATED BLOOD COUNTS AND [...] 2-19 YEARS EXCLUSIVE. Alp 116.0 U/L 40-[address] [facility] ([facility] NORMAL RANGES [...] HCT IS 5% LESS SOURCE FOR DATA: [employer] 1800 OPERATION MANUAL( AUTOMATED BLOOD COUNTS AND [...] HCT IS 5% LESS SOURCE FOR DATA: [employer] 1800 OPERATION MANUAL( AUTOMATED BLOOD COUNTS AND [...] HCT IS 5% LESS SOURCE FOR DATA: [employer] 1800 OPERATION MANUAL( AUTOMATED BLOOD COUNTS AND [...] HCT IS 5% LESS SOURCE FOR DATA: [employer] 1800 OPERATION MANUAL( AUTOMATED BLOOD COUNTS [...] HCT IS 5% LESS SOURCE FOR DATA: [employer] 1800 OPERATION MANUAL( AUTOMATED BLOOD COUNTS AND [...] HCT IS 5% LESS SOURCE FOR DATA: [employer] 1800 OPERATION MANUAL( AUTOMATED BLOOD COUNTS AND [...] INDIVIDUALA AGED 2-19 YEARS EXCLUSIVE. eGFR Non-Afr. Greek 96 # [facility] ([facility] [...] HCT IS 5% LESS SOURCE FOR DATA: [employer] 1800 OPERATION MANUAL( AUTOMATED BLOOD COUNTS AND [...] 2-19 YEARS EXCLUSIVE. ID Date Data Source [id number] 03/10/2021 10:09:00 AM EDT [facility] ([facility] Name Value Range Interpretation Code Description Data Rosa rce(s) Supporting Document(s) Glu 123 mg/dL 70-110 Above high normal [facility] ([facility] CHRONIC KIDNEY DISEASE STAGING [...] mL/min Normal Creat 0.8 mg/dL 0.7-1.2 [facility] ([facility] CHRONIC KIDNEY DISEASE [...] mL/min Normal BUN/Creatinine Ratio 12.1 CALC [facility] ([facility] CHRONIC KIDNEY DISEASE STAGING PER [...] mL/min Normal BUN 10 mg/dL 8-23 [facility] ([facility] [...] mL/min Normal Na 136 mmol/L 136-145 [facility] ([facility] CHRONIC KIDNEY DISEASE STAGING PER [...] mL/min Normal K 3.9 mmol/L 3.5-5.1 [facility] ([facility] CHRONIC KIDNEY DISEASE STAGING PER [...] 21.7 mmol/L 22.0-29.0 Below low normal [facility] ([facility] CHRONIC KIDNEY DISEASE STAGING PER [...] mL/min Normal CL 99.9 mmol/L 98.0-107.0 [facility] ([facility] CHRONIC KIDNEY DISEASE STAGING [...] mL/min Normal CA 9.1 mg/dL 8.6-10.2 [facility] ([facility] CHRONIC KIDNEY [...] mL/min Normal TP 7.1 g/dL 6.6-8.7 [facility] ([facility] CHRONIC KIDNEY [...] mL/min Normal A/G Ratio 1.6 CALC [facility] ([facility] CHRONIC KIDNEY [...] mL/min Normal Alb 4.4 g/dL 3.5-5.2 [facility] ([facility] [...] >32 mL/min Normal Globulin 2.7 CALC [facility] ([facility] [...] mL/min Normal Tbili 1.20 mg/dL 0.0-1.2 [facility] ([facility] CHRONIC KIDNEY DISEASE STAGING [...] mL/min Normal Anion Gap 19 mmol/L [facility] ([facility] CHRONIC KIDNEY DISEASE [...] mL/min Normal eGFR 112 # ALESSANDRO ( [facility] CHRONIC KIDNEY [...] and above >32 mL/min Normal eGFR Non-Afr. Greek 96 # ALESSANDR[facility] ([facility] CHRONIC KIDNEY [...] >32 mL/min Normal ID Date Data Source [id number] 02/07/2021 10:40:00 AM EDT ALESSANDRO ([facility] Name Value Range Interpretation Code Description Data Rosa rce(s) Supporting Document(s) Chol 292 mg/dL 0-200 Above high normal ALESSANDRO ([facility] CHRONIC KIDNEY [...] 2-19 YEARS EXCLUSIVE. Cho/HDL Ratio 8.0 Calc MEDENT ([facility] CHRONIC KIDNEY DISEASE STAGING [...] 75-129 Abnormal (applies to non -numeric results) ALESSANDRO ([facility] CHRONIC KIDNEY [...] 2-19 YEARS EXCLUSIVE. ID Date Data Source [id number] 02/07/2021 10:40:00 AM EDT ALESSANDRO ([facility] Name Value Range Interpretation Code Description Data Rosa rce(s) Supporting Document(s) Creat 0.8 mg/dL 0.7-1.2 [facility] CHRONIC KIDNEY DISEASE STAGING [...] ADOLESCENTS REPRESENTS INDIVIDUALA AGED 2-19 YEARS EXCLUSIVE. Glu 137 mg/dL 70-110 Above high normal [facility] ([facility] [...] YEARS EXCLUSIVE. BUN/Creatinine Ratio 15.0 CALC MEDENT ([facility] CHRONIC KIDNEY DISEASE STAGING [...] YEARS EXCLUSIVE. Na 136 mmol/L 136-145 MEDENT ([facility] CHRONIC KIDNEY [...] EXCLUSIVE. CL 98.9 mmol/L 98.0-107.0 [facility] ([facility] CHRONIC KIDNEY DISEASE STAGING [...] 2-19 YEARS EXCLUSIVE. K 3.9 mmol/L 3.5-5.1 [facility] ([facility] CHRONIC [...] 2-19 YEARS EXCLUSIVE. Globulin 2.5 CALC [facility] ([facility] [...] INDIVIDUALA AGED 2-19 YEARS EXCLUSIVE. eGFR Non-Afr. Greek 96 # MEDENT ([facility] CHRONIC [...] 2-19 YEARS EXCLUSIVE. ID Date Data Source [id number] 02/07/2021 10:39:00 AM EDT MEDJUVENAL ([facility] Name Value Range Interpretation Code Description Data Rosa rce(s) Supporting Document(s) Amylase [Enzymatic activity/volume] in Serum or Plasma 51 U/L 31- 110 MEDENT ([facility] Lipoprotein lipase [Enzymatic activity/volume] in Serum or Plasm a 56 U/L 13-78 MEDENT ([facility] ) ID Date Data Source [id number] 11/17/2020 03:03:47 PM EST [facility] -REPORT:PROCEDURE: XR SCOLIOSIS SERIESDA TE AND TIME: 11/17/2020 11:03 AM ESTHISTORY: Back pain.COMPARISON: None prior study from October 05, 2015.TECHNIQUE: 6 views of the thoracic and lumbar spine are submitted forreview to comprise a scoliosis series.FINDINGS: There is dextroscoliosis of the thoracolumbar spine. Alignmentis otherwise grossly normal. No acute fractures are present. There ismultilevel erya-hh-zjjhylge degenerative disc disease within the lumbarspine. There is also mild multilevel degenerative disc disease withinthe thoracic spine. The patient is status post prior anterior andposterior fusion within the cervical spine. The soft tissues are grosslynormal.IMPRESSION:Dextroscoliosis.Multilevel degenerative disc disease.DWS:[id number] SIGNATURE: Manjit Felton MD Name Value Range Interpretation Code Description Data Rosa rce(s) Supporting Document(s) ID Date Data Source [id number] 11/17/2020 12:07:19 PM EST [facility] Name Value Range Interpretation Code Description Data Rosa rce(s) Supporting Document(s) Progress Note [facility] ALKHIa8iYsZIOlNz39/NHGktQFAvc5LzPQvpAKv4OKpvWJQlG8IhSYI6eD7hDQZ2CZmHIyKzWzVjEuLy lbm [file] /3NW92cL2vOajTdx/Mr/2PV24SnQSYBMkLevoVm4T9f8lFdk0qZ6K4bbrmm++meal cooker+tjYnNYAkOB1tW0Yw XudTYztSD7IuR/ffqErlpD3k7dA/R/u/2EfKySbMry kp9Z/5MT+rYEdpSPyKnGrx5o01q2oga2RqBuY8CumTbsmnUtkhR/FtCBrz/Z1X3KpUk6s56NIH0jS7WN rBeNmyIsbZoOx0CPU0ax+qurxC+3jD1AupoztlFaQ/tG48kCGgCV9TZsSn1a+vP3Se9B9kD/PKytNR2i N6+wJ71qUukHqBHsqFeR7xM5x28j9sofYEdf8AUeG/ fp0Y4YxlC2kmnUc4lE9q2Z92Cip5bUE+czRrOVMLKj+73W06f7iJonFZzFan7SWK3hf3CjGFAmQIfjqj SxPbkQIwQdQNCnx5SzAUenDIs7OVdrRNCfT2Z8kSUzHRTiPL8SVKPoIT2TDUIxnhPmOqQkEGTJEiDpXW FxLqZot2AcV7XgZWExWYXTXNlfAYGuH05qYHuiOg64 NNwuDJIeQpQfECl9Ao5FDaBfJRSuF06tiSBosUVbESRbASNUGCzcBOBaR2ifu5SlOAi0VT8PDK2UuaAb w5OiueFmI2orV2MHVC7SVZPdL9DQU7MeF0nfAoOuj9UsQ1voVzOwz1XiOx3KQhQpFk3RYtLgXC5zgb3I OPZoDMDtPzjKLeJrRCuwTngraUTfJC4EsAC7XIEiU1 9lZSJuZVByN4JbGLY4Fc9+WDhzCIA1vaNsqM2YMYXaoAzLdwWOtp4W/A/lVGo9pb89MjiCWTk0AMX+iQ +vRcXLl1JK1Q2djwD4G7sE0UA9aOExwk2HYHdGX529co60lc/66CBxhhO7fXWLlO8rGMqYDu8d4krDuT ATOCLdaHXOGVLKGmvfsHK0toFQTaI6QU4OYFTxM5u7 [file] AgICAgICAgICAgICAgICAgICAgICAgICAgICAgICAg ICAgICAgICAgICAgICAgICAgICAgICAgICAgDQogICAgICAgICAgICAgICAgICAgICAgICAgICAgICAg ICAgICAgICAgICAgICAgICAgICAgICAgICAgICAgICAgICAgICAgICAgICAgICAgICAgICAgICAgICAg ICAgICAgICAgDQogICAgICAgICAgICAgICAgICAgIC AgICAgICAgICAgICAgICAgICAgICAgICAgICAgICAgICAgICAgICAgICAgICAgICAgICAgICAgICAgIC AgICAgICAgICAgICAgICAgICAgDQogICAgICAgICAgICAgICAgICAgICAgICAgICAgICAgICAgICAgIC AgICAgICAgICAgICAgICAgICAgICAgICAgICAgICAg ICAgICAgICAgICAgICAgICAgICAgICAgICAgICAgDQogICAgICAgICAgICAgICAgICAgICAgICAgICAg ICAgICAgICAgICAgICAgICAgICAgICAgICAgICAgICAgICAgICAgICAgICAgICAgICAgICAgICAgICAg ICAgICAgICAgICAgDQogICAgICAgICAgICAgICAgIC AgICAgICAgICAgICAgICAgICAgICAgICAgICAgICAgICAgICAgICAgICAgICAgICAgICAgICAgICAgIC AgICAgICAgICAgICAgICAgICAgICAgDQogICAgICAgICAgICAgICAgICAgICAgICAgICAgICAgICAgIC AgICAgICAgICAgICAgICAgICAgICAgICAgICAgICAg ICAgICAgICAgICAgICAgICAgICAgICAgICAgICAgICAgDQogICAgICAgICAgICAgICAgICAgICAgICAg ICAgICAgICAgICAgICAgICAgICAgICAgICAgICAgICAgICAgICAgICAgICAgICAgICAgICAgICAgICAg ICAgICAgICAgICAgICAgDQogICAgICAgICAgICAgIC AgICAgICAgICAgICAgICAgICAgICAgICAgICAgICAgICAgICAgICAgICAgICAgICAgICAgICAgICAgIC AgICAgICAgICAgICAgICAgICAgICAgICAgDQogICAgICAgICAgICAgICAgICAgICAgICAgICAgICAgIC AgICAgICAgICAgICAgICAgICAgICAgICAgICAgICAg PSCpCLFnGGAiMTLnDIDlRNFdXZNnKCSsNVSfTGBeYXBuTLKfZXr3W1fgTTEjLOEwMU4nMFc0Kr3+DQoN TcTwFFH9nmDqkI9KVF1jt9QcBHteMVHuv6LxSXg5QM3NTWKtJBncDM5OYEnjpd1LWIMvPQRphUIJf7oq BeDnXWX3HEYlPcpaLF5SXVWwD0xqtsOcAODuMWIIYZ fdGARVONpgCGVDQQPgJRMxCpQxZrFpGBDhYR7YWPYkD444vzYyTZ4BPi8PAhJoOI8bdh1GOEXyVRSsGc ySKbc5HCzeAP3ZxJXbaFW7ElUlJBGZDbPbK3ejl2ZpDQQdTMMBXHyqZF0Gw4NrnMRsGWs+Tf1ZIR0qv4 QlUHk4QsOpWS2qpb5JPHeXDvJyN8WdzSnkJXTjh5cd ZUOgIM2mcTFrYKP8YYywTLzcFJEQZTPiaUpwGKBRVSMuvFZuChTcNnAuTAJsTDrhZGFYDWfMPoLnM6Th r3PhHcG8FVBxZvKlPKkrMFIcApD4YZ66jTsnUG4AOAScSKXnIZ49VZLnYUHuVf4RYd3RJrOdAU6ejw3P HCIpQUIpTztFOje1DWbdSK5LlJMlQ0FdeQThj4eQTd CkR3ALXVC4AVLpNs3XCOUxRoOtAINkAIsbUC0cZGWkSNMUgGsqvoP2LI3EZU4preDdQJ4PUaAoVd3bMd 2YDoIjJ3YbK7KpMMBeCQBUCFmjHF8DUNpiPJ7jXY5An0GAoZBgcK6qgs8ASZTkBBRlSlzwil9CRdshY6 Z1fCezGFEaOGQxZEFRIBinPC3GUKXbWYF0CQJ2JQNb XFLABlRpD74bIO2XZ1Esh71oKlK5FMIzKkOjEQyhBZ15kOsazeIkcMNgpBluVY6KKq3+DQplbmRvYmoN EiagVHRXBnLsPWXZOvUhWNWcFQOnBELuCyV9VdYmOb8TETUrANZeUZIvLaVgRTIjNOVeWRhoCYXnJUIy VPN0SEQeELQmKB0JSjSrQVHoKKX2CaQbBDUsFZQkko 3PGJUlXKAbEQP0MoAjXSTjHSSrLZfcTUPgEJOyRtI5OZGuEDBbNH8GDtDkFHTwQNE3WYCwWNOsMOQtvu 6VGMRmUFPkKXYhKOMdDZAaVFWdTHqxPOWbOQU0HPOmWWYsSMNgSM6XAhYsGTRbXXl3EDXlAISfEVHxot 0LQYDaIFHuIYNbIMWtHGHjOSNpDLdsRGEgSRT3GhG1 ISQcMDAyMF4IOeKbJOVnPJc1QWUxRUEkLOPend8QTINwDMXfTFd5CJYoJNWiLBYeWSfvCWWgSGWyUSs3 XXGaECOrDU2YBiMpROFsJAVjHJFqSGAdBKNolo2CIGHgEFMwBCH0ASLzGAJcLVXeRVazVSFgHDCxGZO8 VAOoFKLhEV4ZGuBoFSQoXFN0YJFgQVYeEKCefn0HUX ZlOUZwXzU4WtViMHHhFLUhFTgtGZElDBKoTCv6VUXuUYZvHO0FGpBeWXJhUwMfYxDoMXIsMZBsei1CTI UaTMLkLLS4XRUrFUWcIUTzXWsdCNIrMHZ4WaCvVDRcZPGlDW8XLcZkHGGlZfU9JNStSRMgNTSlmp8ZSP ZoXKHnXAXbTwZdJATeZIHcYVqgMWUwYIT9ZNe8QNSt YFIvRQ3AWdEjCHXiSgLiBpQpICZaNXJegm2PINMxXNYwCgK3VEOlERSaMPYiLNbsWDRnLEK9MagtBBQr QKKmSH5AToVyDRVyZuy5BnZiDDFjKHLacr1WIQYiQGFfPgj2TSVjPBYvSETtUTmwJDHjLCM1ZornQPTk FIHiZW6FMlLsPIBjJqy1KeRnCYLeVDGfwc5WESZyRU QeVXF9SPXfDGLsDSDjWZvjXEScRCYrGRdiUTCnRECxXY6YCeXxUFNgONQbQQCuAKKtUEBrbe2WYKSkYO W0VyRnNqKoXCKgNQFkTCyqXORuOMUrQcE9MEGcREAvHR5KLjGmAVZvFHB5POPsYRZyZVUtvq7DDKNpFL R6MhJ3FBUmMLYfRXFjTIcuBLZyNTF0TvF1JPXeCDZp BQ5YLuGqATCzFVB4RDThVYRvSDCrxq9JVBTbWDR6GBz5BUOjTNEpTVVmPDa2hvIvzGPtFQs3JU3BK6Ea nzKbAECHMy7Xz717SALtVBJwIi7AW8ezKb6hLPPaUOARIl0NMMe8SJDvINFzLnX6EtAkKbTiZgHfBxXa HzNwKCW1QHVcJRQ+ZSe3GyLbHRWhZVuzBBGpLZMmKH AfAnOjTkJbBte8IlKrOG8wBQRGFm6+HBgtsHDnnBkvJLNQOzL3MoP9NIpnIBXEUv6Y ID Date Data Source [id number] 11/17/2020 12:07:[address] [facility] Name Value Range Interpretation Code Description Data Rosa rce(s) Supporting Document(s) Progress Note [facility] JAHWSi3nOeKHJqXc87/JIHpdFOWca8BsYLngFMa7RHzaPNCtN7AiPMA4fU9wTKO0LAkMBsArKoAtLcYy lbm [file] CnBkslIqRvKT1YDr9PUhD1KNW1dQGlOu9CWkZcRmsJApAtVT8IHZw= ID Date Data Source [id number] 11/10/2020 12:00:00 AM EST [facility] Elmer Kumar MD Patient Name: RIOS CORNEJO Date of : 1960[place] [address] Date of Exam: 11/10/2020#: Fax: [phone] EXAM: [...] cm high signal lesion within the right T43fejdcjog which measured only 5 mm in 2015. [...] was reported previously. The appearance is similar topmobiler study.Thank you for allowing us to participate in the care of your patient.Dictated and Authenticated by: Dago Mason MD 11/10/2020 2:24 PM [facility] [facility] [place]TiffanieV/jmcTdragank you for referring ANA CORNEJO to our office. Electronically Signed - [facility] 11/10/20 14:55 Name Value Range Interpretation Code Description Data Rosa rce(s) Supporting Document(s) ID Date Data Source [id number] 11/10/2020 12:00:00 AM EST [facility] Elmer Kumar MD Patient Name: RIOS CORNEJO Ayo Date of : 1960[place] [address] Date of Exam: 11/10/2020#: Fax: [phone] EXAM: [...] rce(s) Supporting Document(s) ID Date Data Source [id number] 10/11/2020 12:59:36 PM EST [facility] Name Value Range Interpretation Code Description Data Rosa rce(s) Supporting Document(s) Progress Note [facility] ZSJCMf3lFbWNGwPq10/JYOauMTSfx9MqRXeeCNk4OWqtWWLsV5WnXTM3eO7xGHH0GUbXHaLqHlDpNhU4 lbm [file] ICAgICAgICAgICAgICAgICAgICAgICAgICAgICAgICAgICAgICAgICAgICAgICAgICAgICAgICAgICAg ICAgICAgICAgICAgICAgICAgICAgICAgICAgICAgICANCiAgICAgICAgICAgICAgICAgICAgICAgICAg ICAgICAgICAgICAgICAgICAgICAgICAgICAgICAgIC AgICAgICAgICAgICAgICAgICAgICAgICAgICAgICAgICAgICAgICAgICANCiAgICAgICAgICAgICAgIC AgICAgICAgICAgICAgICAgICAgICAgICAgICAgICAgICAgICAgICAgICAgICAgICAgICAgICAgICAgIC AgICAgICAgICAgICAgICAgICAgICAgICANCiAgICAg ICAgICAgICAgICAgICAgICAgICAgICAgICAgICAgICAgICAgICAgICAgICAgICAgICAgICAgICAgICAg ICAgICAgICAgICAgICAgICAgICAgICAgICAgICAgICAgICANCiAgICAgICAgICAgICAgICAgICAgICAg ICAgICAgICAgICAgICAgICAgICAgICAgICAgICAgIC AgICAgICAgICAgICAgICAgICAgICAgICAgICAgICAgICAgICAgICAgICAgICANCiAgICAgICAgICAgIC AgICAgICAgICAgICAgICAgICAgICAgICAgICAgICAgICAgICAgICAgICAgICAgICAgICAgICAgICAgIC AgICAgICAgICAgICAgICAgICAgICAgICAgICANCiAg ICAgICAgICAgICAgICAgICAgICAgICAgICAgICAgICAgICAgICAgICAgICAgICAgICAgICAgICAgICAg ICAgICAgICAgICAgICAgICAgICAgICAgICAgICAgICAgICAgICANCiAgICAgICAgICAgICAgICAgICAg ICAgICAgICAgICAgICAgICAgICAgICAgICAgICAgIC AgICAgICAgICAgICAgICAgICAgICAgICAgICAgICAgICAgICAgICAgICAgICAgICANCiAgICAgICAgIC AgICAgICAgICAgICAgICAgICAgICAgICAgICAgICAgICAgICAgICAgICAgICAgICAgICAgICAgICAgIC AgICAgICAgICAgICAgICAgICAgICAgICAgICAgICAN CiAgICAgICAgICAgICAgICAgICAgICAgICAgICAgICAgICAgICAgICAgICAgICAgICAgICAgICAgICAg ICAgICAgICAgICAgICAgICAgICAgICAgICAgICAgICAgICAgICAgICANCjw/aVFqI4tdcTTrgoW5L7xg Ls8LIp5KSJ5nj9JkBKJeSKdejvLkHjgALeTlBBVyBt jGBlr5MRhzMP7YvZThU3GwW0PsYLipNV2VJXTyRGHasBPeLULkPBZbUpU0YHAsDNfbQJ3GhFLrMHulLU SkPBZnOjZtJIGcFKHlLPGiXJKmZGAFWP9TKfKbS2TirV48SBKONf5+KJmknqLzTcoNRlY4HBRun7BxWT k8XT1APUWjMngqg2LjBXVhOFCPTEseHB8IFIP8UZRi EWJqAp1EEXXyN730ohJtNL1MQe3EKjKfRV6xxj0PCFQnZHQjUxrEIcp8KBpsYY9OgDCiBQxHdn4nxlOm smIGc9ExajJmaBKCaUIkpZOeBNPMRLGmoZyoHJHjZAMhUEKyGnnxTgXfJIBrDLgqIFQNCUfHYfIeG3Zg x3FdHiK8ZLTfEsSmJUgiZISsDmZ9TS04fOkrMZ3YVW CqFKDoMC28WFW8ZKGhDa5UKm6AFlTtQC7ctc1IOAIfMSCnUwzVMrg3JOmsHT5HqRLrN2IxfHZxs8oBLd JpL3MLHDX6OHYpDb8XCSXtSjTnJVMxRGptRR7pIHVaOJNZsVlbbjQ5TV7VMA4oveYaHJ9FBpLdMa8tRz 5ORsHhA3CuB1MsUBBnAQMBNQwzED5ZXFikMV2hUV0H r9EIiRZmiI5mgk9VJZIzTFWdFngkks1TRhpdM1S6uUbpKTGrOronTNTSAYshOF0RYOHkFRO8BEQwYFIu YTBPLgCuH43qBP9YF3Pep43hAeE3KOJdQrOvIRfzFE69gMqtpvAwtIAthBroEY1PQu9+DQplbmRvYmoN RjulSXYOPcVxYFDDRbKeQBAhZPGuVARoRaD3GtRsFz 4ZEGXhKORtXXVaYiGhOMLhGYZhTMhgOMYmAOPlQMo4SKWfFLVhCU0RMpQeMTBzSRCqWvVjUNUuSHIkjs 4NBEIvJTYzRUJ4EsShXCWoHVBoNLjzUHToIJJdOzf1XDRnBIZtFB4SQbWzPMKzBEOrXOTqOYQwNAKrte 4TBLUzHMQoCFW1NaSgBCWiFMPyJQjmRWOwKTM5BDDp OOEoEAQlTR1NMgSlPOXzKRX0BRSnZSKdKHYizg6TXJHuLNJuZhV3IIJvYJVxNFCuLEuiAYPgNFH5OqDp HTUqRCWrKM8NDkQhYSSgFMr2XuwhZFZmPQEkbr4WVITaRXBzUDw5MtPnZJGiBNFdZSzkRZZjCAO6DSl5 HNNpKXZuWY9ROmRaVYRrKMlbDjnqIRSdRESawg4BEO VhRDEfZWDeJzDkANYqGIWnSQszCVNcOFWwCkF7XDYuHWFiQO1DJuEfKTMcFNT8NCuyKRVwHRJygj5CUK BwUTCjWFv2EtJlHQCoEAUiIXdeMLEfPIIuJCjiYWIpVPQaRU2QZeHfMUPgIiFjBOKjWJReWZJbea0LDS VwFPUvKzWeHCAeTKCuCAOzMSziGWIkKRBtSwg7GDRf FYGaDY2LMpKyYXYnRdE8OnTnUYAwZLDpoh9OMCEbIJShZtxaZWWvGEMwYVRgBDzzKTKkGKA0HSz1MHJy OYOxHC3JWwQkBUDhFfSyQcTdNZEcBKSsme4OBFZzDVRqLSLrPdZwRRPgLXZcAVzuBDItVMZ5Xul2XMCr HEUrJB5TTnVwITVmUkXyDxGsUKKvWAQfvs2XJMVaNM XqIoPoSnYvJEZqPQSeJMcqZURkEDX9Ltd4XGMhDOQpOT0GPiTgGWUbUwp0NcKoMVEtJSKxlf5TDMUxDI XlWSy9JFOxYRPsLTGuQMwtEXCtQWHhWNA2TKNtBXGxIE2KTsPaQKZaSLMvKGjiXLVgWKMxtv2GEAIeQK B3FVP5LkVlJVPrCMGfUZfcINRxZOMnABQkWDGkKUYt HR5UUqTjGAWqMGGtFmtxIPNiVSOcaz7QMCBcIAC2WrC1HPJgCRTjCCJtEQhqQJSxRPWaVlYgNVFoTGTp TK3DGgDxWDukJTTYXed7RMlaG5j4ZRJ9Wz1JI6Hmw5LgVEQyXKDLLPnbUV5yqiTiYJYfMm9TG7bVLbvd SPAwFWioCdSuFqX1CFP4RIIiEGrcWQDcSPAvDDvnEO 0dLQFhJaU0Y2YiVBSjKQB4VLZ3LIYlR8A7V1D5TQVbW4X3RtMoUD2ISc1AClP4RDY4kFXeKt3KQSI5FB YPDwYpIW8LHJx= ID Date Data Source [id number] 10/11/2020 12:42:[address] [facility] Name Value Range Interpretation Code Description Data Rosa rce(s) Supporting Document(s) Progress Note [facility] LRRGLf9eEgYXIhOp11/BUFfhNIGuw2TaASbrKLw4SUqrIJFaY5LeSPT3iH8tAQS4QZzZTrZeVhAdDmC7 lbm [file] NfVdP1QGHbPGL7PKpeOFV2OmX+ZZ3sCKe+Xr8Ik6QachJ0sbVuGZkbJLC5Oc1GVQIMT4OURu== ID Date Data Source [id number] 10/07/2020 08:36:00 AM EST MEDENT ([facility] Name Value Range Interpretation Code Description Data Rosa rce(s) Supporting Document(s) [facility] Laboratory test result [facility]ENT ([facility] ID Date Data Source [id number] 09/20/2020 08:37:[address] [facility] Name Value Range Interpretation Code Description Data Rosa rce(s) Supporting Document(s) Progress Note [facility] AMMHPm2pCgRIEqAs15/OOPkoIHBik8PzVAfdIEq9VDvgCNNxV5SyJFY7kF7xUMH7TJoQZoGkEaUfCxI4 lbm YtUavOJbYwYZStUlpTXrEmIJjjNfklmGHnZX8MxJJ8NLPnZ41sSPXlGJJhG0LtYVB7LvX+Ss4DRETmyK TlQL2PXoxYsT3vh3o2QI7e1V+mdiID2hb1xWu5ULOXire9jjPBmuqyVet4XNlce9vwJKltm+lPLXnvpU IcD6mUa2/EXvpbA20UGjGH14GkBmuhs//pPgtD3/dd +d/hs9IdyvY9n/1sq54G4yMw6n+nyKkhY8qJjpI/uO031k7/+Mhe9z1dvykj2mYHHyGHyw/y4/iyi6Pv 7iRju+crzpr7gJn+1061y7An1PNnO+Rosy//JLq49nr0igqnwNocBj9o1CuN2DFk77ZG/4ugzOM59NCfc [file] 4+AJrrvENfhPgnVCNAAdM3ZHZ3RKjsDVDGNs9H ID Date Data Source [id number] 06/23/2020 09:40:00 AM EDT [facility] ([facility] Name Value Range Interpretation Code Description Data Rosa rce(s) Supporting Document(s) Prostate specific Ag [Mass/volume] in Serum or Plasma 0.46 ng/mL 0.0- 4.0 [facility] ([facility] ID Date Data Source [id number] 06/23/2020 09:40:00 AM EDT MED[facility] ([facility] Name Value Range Interpretation Code Description Data Rosa rce(s) Supporting Document(s) Chol 305 mg/dL 0-200 Above high normal [facility] ([facility] CHRONIC KIDNEY DISEASE STAGING [...] 586 mg/dL 35-200 Above high normal MED[facility] ([facility] CHRONIC KIDNEY [...] YEARS EXCLUSIVE. Cho/HDL Ratio 5.5 Calc MEDENT ([facility] CHRONIC KIDNEY DISEASE STAGING [...] 2-19 YEARS EXCLUSIVE. ID Date Data Source [id number] 06/23/2020 09:40:00 AM EDT ALESSANDRO ([facility] Name Value Range Interpretation Code Description Data Rosa rce(s) Supporting Document(s) Glu 109 mg/dL 70-110 [facility] CHRONIC KIDNEY DISEASE STAGING [...] 2-19 YEARS EXCLUSIVE. Creat 0.9 mg/dL 0.7-1.2 [facility] CHRONIC KIDNEY DISEASE STAGING [...] EXCLUSIVE. CL 103.7 mmol/L 98.0-107.0 [facility] ([facility] CHRONIC KIDNEY DISEASE STAGING [...] YEARS EXCLUSIVE. K 4.3 mmol/L 3.5-5.1 [facility] CHRONIC KIDNEY DISEASE STAGING PER [...] EXCLUSIVE. CA 8.7 mg/dL 8.6-10.2 [facility] CHRONIC KIDNEY DISEASE [...] INDIVIDUALA AGED 2-19 YEARS EXCLUSIVE. eGFR Non-Afr. Greek 93 # [facility] ([facility] [...] EST Current drinker of al cohol (finding) [facility] Tobacco use and exposure 10/11/2020 12:00:00 AM EST Never used [facility] Tobacco smoking status SDIS 10/11/2020 12:00:00 AM EST Never smoker [facility] Alcohol intake 10/11/2020 12:00:00 AM EST Current drinker of al cohol (finding) [facility] Vital Signs ID Date Data Source [id number] Name Value Range Interpretation Code Description Data Source(s) Body temperature 97.7 [degF] 97.7 [degF] [facility] ([facility] Heart rate 81 /min 81 /min [facility] ([facility] Body height 71 [in_i] 71 [in_i] MEDENT ([facility] 5'11" Body weight 201.00 [lb_av] 201.00 [lb_av] MEDEN T ([facility] [place] body weight 172 [lb_av] 172 [lb_av] MEDEN T ([facility] Body mass index (BMI) [Ratio] 28.0 kg/m2 28.0 k g/m2 [facility] ([facility] Systolic blood pressure 140 mm[Hg] 140 mm[Hg] M EDENT ([facility] Diastolic blood pressure 70 mm[Hg] 70 mm[Hg] [facility] ([facility] Respiratory rate 16 /min 16 /min [facility] ( [facility] Oxygen saturation in Arterial blood by Pulse oximetry 98 % 98 % [facility] ([facility] Respiratory rate 18 /min 18 /min [facility] ( [facility] Body height 71 [in_i] 71 [in_i] MEDENT ([facility] 5'11" [place] body weight 172 [lb_av] 172 [lb_av] MEDEN T ([facility] Body weight 198.00 [lb_av] 198.00 [lb_av] MEDEN T ([facility] Diastolic blood pressure 80 mm[Hg] 80 mm[Hg] MEDENT ([facility] Body temperature 98.0 [degF] 98.0 [degF] MEDENT ([facility] Systolic blood pressure 124 mm[Hg] 124 mm[Hg] M EDENT ([facility] Heart rate 100 /min 100 /min MEDENT ([facility] Body mass index (BMI) [Ratio] 27.6 kg/m2 27.6 k g/m2 MEDENT ([facility] Oxygen saturation in Arterial blood by Pulse oximetry 97 % 97 % MEDENT ([facility] Systolic blood pressure 124 mm[Hg] 124 mm[Hg] M EDENT ([facility] Diastolic blood pressure 84 mm[Hg] 84 mm[Hg] MEDENT ([facility] Body temperature 98.2 [degF] 98.2 [degF] MEDENT ([facility] Heart rate 92 /min 92 /min MEDENT ([facility] Respiratory rate 16 /min 16 /min MEDENT ( [facility] Body height 71 [in_i] 71 [in_i] MEDENT ([facility] 5'11" Body weight 202.50 [lb_av] 202.50 [lb_av] MEDEN T ([facility] [place] body weight 172 [lb_av] 172 [lb_av] MEDEN T ([facility] Body mass index (BMI) [Ratio] 28.2 kg/m2 28.2 k g/m2 MEDENT ([facility] Oxygen saturation in Arterial blood by Pulse oximetry 96 % 96 % MEDENT ([facility] Body height 71 [in_i] 71 [in_i] MEDENT ([facility] 5'11" Body weight 199.00 [lb_av] 199.00 [lb_av] MEDEN T ([facility] Heart rate 96 /min 96 /min MEDENT ([facility] Respiratory rate 20 /min 20 /min MEDENT ( [facility] Systolic blood pressure 124 mm[Hg] 124 mm[Hg] M FOSTERENT ([facility] Diastolic blood pressure 88 mm[Hg] 88 mm[Hg] MEDENT ([facility] Body temperature 98.3 [degF] 98.3 [degF] MEDENT ([facility] [place] body weight 172 [lb_av] 172 [lb_av] MEDEN T ([facility] Body mass index (BMI) [Ratio] 27.8 kg/m2 27.8 k g/m2 MEDENT ([facility] Oxygen saturation in Arterial blood by Pulse oximetry 97 % 97 % ALESSANDRO ([facility] Body temperature 97.6 [degF] 97.6 [degF] MEDENT ([facility] Heart rate 84 /min 84 /min MEDENT ([facility] Respiratory rate 16 /min 16 /min MEDENT ( [facility] Body height 71 [in_i] 71 [in_i] MEDENT ([facility] 5'11" Body weight 200.00 [lb_av] 200.00 [lb_av] MEDEN T ([facility] [place] body weight 172 [lb_av] 172 [lb_av] MEDEN T ([facility] Body mass index (BMI) [Ratio] 27.9 kg/m2 27.9 k g/m2 MEDENT ([facility] Oxygen saturation in Arterial blood by Pulse oximetry 98 % 98 % ALESSANDRO ([facility] Systolic blood pressure 122 mm[Hg] 122 mm[Hg] M JOSÉ MIGUEL ([facility] Diastolic blood pressure 80 mm[Hg] 80 mm[Hg] MEDENT ([facility] ID Date Data Source [id number] 11/17/2020 12:07:19 PM EST [facility] Name Value Range Interpretation Code Description Data Source(s) WEIGHT 195 lb 195 lb [facility] HEIGHT [address] [facility]
[2021-08-03] MEDS ORDERED: MORPHINE 4 MG/ML 1ML VIAL/SYRINGE (J2270) IV ONE (17:55)
[2021-08-03] MEDS ORDERED: ONDANSETRON 4MG/2ML VIAL IV ONE (17:55)
[2021-08-03] MEDS ORDERED: ISOVUE-370 76% 100ML VIAL As Ordered ONE (18:05)
[2021-08-03] MEDS: NS 1,000 ML IV SCH (18:25)
--- NOTE | 2021-08-03 19:28 | REPVR ---
PROCEDURE INFORMATION: Exam: CTA Chest With Contrast Exam date and time: 08/03/2021 6:08 PM Age: 60 years old Clinical indication: Pain; Shortness of breath; Angina pectoris; Additional info: Chest pain, SOB TECHNIQUE: Imaging protocol: Computed tomographic angiography of the chest with contrast. 3D rendering (Not supervised by radiologist): MIP and/or 3D reconstructed images were created by the technologist. Radiation optimization: All CT scans at this facility use at least one of these dose optimization techniques: automated exposure control; mA and/or kV adjustment per patient size (includes targeted exams where dose is matched to clinical indication); or iterative reconstruction. Contrast material: ISOVUE 370; Contrast volume: 100 ml; Contrast route: INTRAVENOUS (IV); COMPARISON: CT ABD PELVIS W/O CONTRAST 05/21/2019 3:21 AM FINDINGS: Pulmonary arteries: Normal. No pulmonary emboli. Aorta: Unremarkable. No aortic aneurysm. No aortic dissection. Lungs: 2 mm nodule in the right lower lobe (series 401, image 124) Pleural spaces: Unremarkable. No pneumothorax. No pleural effusion. Heart: Unremarkable. No cardiomegaly. No pericardial effusion. Lymph nodes: Unremarkable. No enlarged lymph nodes. Diaphragm: Small hiatal hernia. Gallbladder and bile ducts: Cholecystectomy clips. Bones/joints: Unremarkable. No acute fracture. Soft tissues: Unremarkable. IMPRESSION: No pulmonary embolism. Nodule in the right lower lobe measuring 2 mm.For patients at low risk (minimal or absent history of smoking and of other known risk factors), no routine follow-up is indicated. For patients at high risk (history of smoking or of other known risk factors), consider optional CT Chest at 12 months. (Reference: Porter) References: Porter Lackey et al. Guidelines for Management of Incidental Pulmonary Nodules Detected on CT Images: From the Fleischner Society 2017. Radiology. 2017;284(1):228-243. Electronically signed by: Scott Mendez On 08/03/2021 19:27:55 PM
--- NOTE | 2021-08-03 19:37 | REPVR ---
PROCEDURE INFORMATION: Exam: CT Abdomen And Pelvis With Contrast Exam date and time: 08/03/2021 6:08 PM Age: 60 years old Clinical indication: Abdominal pain; Epigastric; Additional info: Upper abd pain TECHNIQUE: Imaging protocol: Computed tomography of the abdomen and pelvis with contrast. Radiation optimization: All CT scans at this facility use at least one of these dose optimization techniques: automated exposure control; mA and/or kV adjustment per patient size (includes targeted exams where dose is matched to clinical indication); or iterative reconstruction. Contrast material: ISOVUE 370; Contrast volume: 100 ml; Contrast route: INTRAVENOUS (IV); COMPARISON: CT ABD PELVIS W/O CONTRAST 05/21/2019 3:21 AM FINDINGS: Diaphragm: Small hiatal hernia. Liver: Normal. No mass. Gallbladder and bile ducts: Cholecystectomy clips. Pancreas: Normal. No ductal dilation. Spleen: Normal. No splenomegaly. Adrenal glands: Normal. No mass. Kidneys and ureters: Normal. No hydronephrosis. Stomach and bowel: There is a 3.2 x 4 cm cystic lesion in the 2nd part of the duodenum with surrounding edema. There is duodenal wall thickening Appendix: No evidence of appendicitis. Intraperitoneal space: Unremarkable. No free air. No significant fluid collection. Vasculature: Unremarkable. No abdominal aortic aneurysm. Lymph nodes: Unremarkable. No enlarged lymph nodes. Urinary bladder: Unremarkable as visualized. Reproductive: Unremarkable as visualized. Bones/joints: Unremarkable. No acute fracture. Soft tissues: Unremarkable. IMPRESSION: Cystic lesion in the 2nd part of the duodenum measuring 3.2 x 4 cm with surrounding edema and duodenal wall thickening. Differential includes duodenal diverticulum with superimposed infection/inflammation or penetrating duodenal ulcer with adjacent abscess formation. Electronically signed by: Scott Mendez On 08/03/2021 19:37:01 PM
[2021-08-03 21:54] LABS: CK-MB VALUE MASS < 1.0 NG/ML (<3.6); CPK CREATINE PHOSPHOKINASE 53 U/L (39-308); MB/CK RELATIVE INDEX 1.89 (< OR =4); TROPONIN I < 0.02 NG/ML (< 0.10)
[2021-08-03] MEDS ORDERED: PANTOPRAZOLE SODIUM 40 MG in D5W 50 ML IV SCH (23:10)
[2021-08-03] MEDS ORDERED: PANTOPRAZOLE 40MG VIAL (C9113 PER 1) IV ONE (23:10)
[2021-08-03] MEDS ORDERED: PIPERACILLIN/TAZOBACTAM SOD 3.375 GM in D5W MINI-BAG PLUS 50 ML IV ONE (23:35)
[2021-08-04 00:17] LABS: RSV AMPLIFICATION NEGATIVE (NEGATIVE)
[2021-08-04] MEDS: NS 1,000 ML IV SCH (01:02)
[2021-08-04] MEDS ORDERED: AUGM875T28 PO (01:20)
[2021-08-04 01:31] VITALS: BP 167/90
--- NOTE | 2021-08-04 18:55 | ECGEPIP ---
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
--- NOTE | 2021-08-04 18:59 | ECGEPIP ---
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
== END 2021-08-04 01:36 | disposition left against medical advice (07) ==
LOC: M ED 14:55
DX: K57.10 Diverticulosis of small intestine without perforation or abscess without bleeding (principal); Z53.9 Procedure and treatment not carried out, unspecified reason; I10 Essential (primary) hypertension; F10.20 Alcohol dependence, uncomplicated; F32.9 Major depressive disorder, single episode, unspecified; R53.1 Weakness; K86.1 Other chronic pancreatitis; R91.1 Solitary pulmonary nodule; K31.9 Disease of stomach and duodenum, unspecified; Z79.899 Other long term (current) drug therapy; Z88.8 Allergy status to other drugs, medicaments and biological substances
CPT/HCPCS: 36415; 71045; 71275; 74177; 80048; 80076; 82550; 82553; 83690; 84484; 85025; 87631; 93005; 93041; 94760; 96361; 96365; 96368; 96374; 96375; 99285; C9113; J2270; J2405; J2543; Q9967

== ENCOUNTER 2021-09-21 05:57 | Inpatient (IN) | payer MEDICARE, MEDICAID ==
[~2021-09-21] VITALS: Ht 177.8 cm; Wt 90.3 kg
--- OUTSIDE RECORDS SUMMARY | 2021-09-21 06:01 | CCD | Continuity of Care Document ---
Author Author Joao ALBARRAN M.D. Organization Unknown Address [address] [place] [address], [address] [place] [address] Phone [phone] Problems Active Problems Provider Date Bilateral inguinal hernia Odin Albarran M.D. Onset: 2014 Screening for malignant neoplasm of colon Krunal Greene MD Onset: 11/29/2015 History of polyp of colon Krunal Greene MD Onset: 016 Internal hemorrhoids without complication Krunal Greene MD Onset: 11/29/2015 Benign neoplasm of rectum and anal canal Krunal Greene MD Onset: 11/29/2015 Digestive symptom Krunal Greene MD Onset: 11/29/2015 Cervico-occipital neuralgia Mari Hendricks M.D. Onset: 09/25 Lumbar spondylosis Mari Hendricks M.D. Onset: 09/25/2016 Solitary sacroiliitis Mari Hendricks M.D. Onset: 09/25/2016 Lesion of ulnar nerve Mari Hendricks M.D. Onset: 09/25/2016 Cervical spondylosis with myelopathy Mari Hendricks M.D. Ons et: 09/25/2016 Chronic pain syndrome Mari Hendricks M.D. Onset: 09/25/2016 Social History Type Date Description Comments Sex Unknown Smokeless Tobacco Never Used Smokeless Tobacco ETOH Use H/O Abuse Has reduced to d rinking only occasionally. Has not completely stopped ETOH Use Sociable Recreational Drug Use Denies Drug Use Tobacco Use Start: Unknown Denies Smoking Allergies and adverse reactions Description No Known Drug Allergies Medications Active Medications SIG Qnty Indications Ordering Provide r Date Losartan Potassium 50mg Tablets 1 by mouth every day 60tabs Unknown Atenolol 50mg Tablets 1 by mouth every day Unknown Hydrocodone-Acetaminophen 5-325mg Tablets Unknown Fenofibrate 160mg Tablets 1 by mouth every day Unknown Bactrim 400-80mg Tablets 1 by mouth twice a day Unknown Immunizations Description No Information Available Vital Signs Date Vital Result Comment 08/12/2021 2:04pm BP Systolic 154 mmHg BP Diastolic 96 mmHg Body Temperature 98.8 F Height 70 inches 5'10" Weight 200.25 lb BMI (Body Mass Index) 28.7 kg/m2 [place] Body Weight 166 lb Weight 90.833 kg BSA (Body Surface Area) 2.09 m2 08/06/2018 9:59am BP Systolic 158 mmHg BP Diastolic 97 mmHg Height 70 inches 5'10" Weight 192.00 lb BMI (Body Mass Index) 27.5 kg/m2 [place] Body Weight 166 lb Weight 87.091 kg BSA (Body Surface Area) 2.05 m2 Results Description No Information Available Procedures Description No Information Available Medical Devices Description No Information Available Encounters Description No Information Available Assessments Description No Information Available Plan of Treatment 08/06/2018 - Krunal Greene MD* 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 Can increase dosing Cont Elavil, can increase dosing for chronic pain Pt on PRN Narcotic meds. (cont per pain management) Functional Status Description No Information Available Mental Status Description No Information Available Referrals Description No Information Available
--- OUTSIDE RECORDS SUMMARY | 2021-09-21 06:01 | CCD | Continuity of Care Document ---
Author Author Joao ALBARRAN M.D. Organization Unknown Address [address] [place] [address], [address] [place] [address] Phone [phone] Problems Active Problems Provider Date Bilateral inguinal [...] lb BMI (Body Mass Index) 28.7 kg/m2 [place] Body Weight 166 lb Weight 90.833 kg BSA (Body Surface Area) 2.09 m2 08/06/2018 9:59am BP Systolic 158 mmHg BP Diastolic 97 mmHg Height 70 inches 5'10" Weight 192.00 lb BMI (Body Mass Index) 27.5 kg/m2 [place] Body Weight 166 lb Weight 87.091 kg [...]
--- OUTSIDE RECORDS SUMMARY | 2021-09-21 06:01 | CCD | Continuity of Care Document ---
Author Author Joao JANE M.D. Organization Unknown Address [address] [facility] [address] [place] [address] Phone [phone] Care Team Providers Care Imaging Manager Name Role Phone Ulysses Ortega D.O. AUTM [phone] Jonel Sánchez M.D. AUTM [phone] Krunal Greene M.D. AUTM [phone] Problems Active Problems Provider Date Benign essential hypertension Kamlesh Watson M.D. Onset: 0 02/06/2006 Kidney stone Kamlesh Watson M.D. Onset: 02/06/2006 Gastroduodenitis Kamlesh Watson M.D. Onset: 02/06/2006 Postcholecystectomy syndrome Kamlesh Watson M.D. Onset: Benign prostatic hyperplasia with outflow obstruction Kamlesh Watson M.D. Onset: 02/05/2006 Hyperlipidemia Pj Flroes RPA Onset: 05/30/2012 Essential hypertension Aashish Jane [...] SIG Qnty Indications Ordering Provide r Date Augmentin 875-125mg Tablets 1 by mouth twice a day 20tabs Aashish Jane M.D. 10/25/20 21 Tamsulosin HCL 0.4mg Capsules Take One Capsule By Mouth AT Bedtime 90Aashish Peñaloza M .D. 07/04/2021 Aptos 5-325mg Tablets 1 tab by mouth two times a day as needed [id number] 60taAashish Browning M.D. 06/08/[address] Take One Capsule By Mouth Every Day 90Aashish Peñaloza M. D. 02/07/2021 Lorazepam 0.5mg Tablets 1 tab by mouth 1 hour prior to procedure- no driving [id number] 1tabs Mi Aashish timmons M.D. 11/05/2020 Tessalon Perles 100mg Capsules one by mouth three times a day as needed 30Zachary Peñaloza M.D. 08/16/2020 Fenofibrate 145mg Tablets Take One Tablet By Mouth Every Day 30Aashish Beasley M.D. 01/17 Losartan Potassium 100mg Tablets take one tablet by mouth every day maximum daily dose = 1 90Aashish Beasley M.D. 12/06/[address] Creon [id number] Caps DR Part take one to two [...] 08/09/2015 Injection (SC)/(Im) Injection Ulysses Ortega D.O., [facility] 06/08/2015 Injection (SC)/(Im) Injection Aashish Jane M.D. 07/21/2014 Injection (SC)/(Im) Injection Divine Duran [employer] 01/04/2012 Immunizations CPT Code Status Date Vaccine Lot # 72072 Given 07/06/2021 Influenza Virus Vaccine, Quadrivalent, Slit Virus, Im Use 3Y & Up [id number] 30614 Given 06/23/2020 Influenza Virus Vaccine, Quadrivalent, Slit Virus, Im Use 3Y & Up [id number] 66614 Given 07/04/2019 Influenza Virus Vaccine, Quadrivalent, Slit Virus, Im Use 3Y & Up [id number] 09933 Given 06/26/2018 Influenza Virus Vaccine, Quadrivalent, Slit Virus, Im Use 3Y & Up [id number] 15742 Given 07/16/2017 Influenza Virus Vaccine, Quadrivalent, Slit Virus, Im Use 3Y & Up [id number] 02407 Given 07/26/2016 Influenza Virus Vaccine, Quadrivalent, Slit Virus, Im Use 3Y & Up [id number] 49171 Given 08/09/2015 Influenza Vaccin e (Fluzone) 3Yrs Of Age Or Older Medicare Plans [id number] 11127 Given 08/09/2015 Influenza Virus Vac. Split Virus Individuals 3 Years And Above 32473 Given 06/08/2015 Tdap Tetanus,Dip htheria Toxoids/Acellular Pertussis 7Yrs Or Older [id number] 20244 Given 07/21/2014 Influenza Virus Vac. Split Virus Individuals 3 Years And Above [id number] Vital Signs Date Vital Result Comment 09/19/2021 11:29am BP Systolic 142 mmHg BP Diastolic 94 mmHg Body Temperature 98.0 F Heart Rate 88 /min Respiratory Rate 18 /min Height 71 inches 5'11" Weight 197.00 lb [place] Body Weight 172 lb BMI (Body Mass Index) 27.5 kg/m2 O2 % BldC Oximetry 90 % 08/08/2021 3:33pm BP Systolic 136 mmHg BP Diastolic 88 mmHg Body Temperature 99.2 F Heart Rate 96 /min Respiratory Rate 16 /min Height 71 inches 5'11" Weight 201.00 lb [place] Body Weight 172 lb BMI (Body Mass Index) 28.0 kg/m2 O2 % BldC Oximetry 95 % Results Test Acquired Date Facility Test Result H/L Range Note CMP 09/19/2021 [facility] Glu 116 mg/dL High 70 - 110 1 BUN 16 mg/dL 8 - 23 Creat 0.9 mg/dL 0.7 - 1.2 BUN/Creatinine Ratio 18.2 Calc Na 137 mmol/L 136 - 145 K 4.3 mmol/L 3.5 - 5.1 CL 100.2 mmol/L 98.0 - 107.0 Co2 19.9 mmol/L Low 22.0 - 29.0 CA 9.8 mg/dL 8.6 - 10.2 TP 7.3 g/dL 6.6 - 8.7 Alb 4.8 g/dL 3.5 - 5.2 A/G Ratio 2.0 Calc Globulin 2.4 Calc Alp 87.9 U/L 40 - 129 Alt (SGPT) 25 U/L 0 - 41 Ast (Sgot) 32 U/L 0 - 40 Tbili 0.54 mg/dL 0.0 - 1.2 Osmolality-Calculated 276.2 Calc Anion Gap 21 mmol/L eGFR 106 # Calc 2 eGFR Non-Afr. [place] 92 # Calc 3 CBC 09/19/2021 [facility] WBC 6.6 10E3/uL 4.1 - 10.9 RBC 4.32 10E6/uL 4.20 - 6.30 HGB 14.1 g/dL 12.0 - 18.0 HCT 42.0 % 37.0 - 51.0 MCV 97.2 fL High 80.0 - 97.0 MCH 32.6 pg High 26.0 - 32.0 MCHC 33.6 g/dL 31.0 - 36.0 PLT 283 10E3/uL 140 - 440 RDW-CV 11.8 % 11.5 - 14.5 Lym% 23.7 % 10.0 - 58.5 Neut% 67.5 % 37.0 - 92.0 MXD% 8.8 % 0.1 - 24.0 Lym# 1.6 10E3/uL 0.6 - 4.1 Neut# 4.4 % 2.0 - 7.8 MXD# 0.6 10E3/uL 0.0 - 1.8 MPV 9.6 fL 9.0 - 13.0 Laboratory test finding 09/19/2021 [facility] [place] Amylase 51 U/L 31-110 Lipase 36 U/L 13-78 CMP 08/01/2021 [facility] Glu 103 mg/dL 70 - 110 4 BUN 10 mg/dL [...] Gap 20 mmol/L eGFR 112 # Calc 5 eGFR Non-Afr. [place] 96 # Calc 6 Lipid Panel 08/01/2021 [facility] Chol 264 mg/dL [...] 1.8 MPV 9.4 fL 9.0 - 13.0 1 NORMAL RANGES Age WBC RBC HGB [...] HCT IS 5% LESS SOURCE FOR DATA: [employer] Rose 1800 OPERATION MANUAL( AUTOMATED BLOOD COUNTS AND [...] mL/min Normal 2 CKD-EPI 3 CKD-EPI 4 NORMAL RANGES Age WBC RBC HGB HCT [...] HCT IS 5% LESS SOURCE FOR DATA: [employer] 1800 OPERATION MANUAL( AUTOMATED BLOOD COUNTS AND [...] 6 CKD-EPI Procedures Date Code Description Status 09/19/2021 04383 Office/Outpatient Established Mo d MDM 30-39 Min Completed 08/08/2021 07181 Office/Outpatient Established Mo d MDM 30-39 Min Completed 08/01/2021 91504 Office/Outpatient Established Mo d MDM 30-39 Min Completed Medical Devices Description No Information Available Encounters Type Date Location Provider Dx Diagnosis Office Visit 09/19/2021 11:30a [place] [facility] Aashish Jane M. D. R10.9 Unspecified abdominal pain Office Visit 08/08/2021 3:20p [place] [facility] Aashish Jane M. D. K57.92 Dvtrcli of intest, part unsp, w/o perf or abscess w/o bleed Office Visit 08/01/2021 10:00a [place] [facility] Aashish Jane M. D. E78.5 Hyperlipidemia, unspecified M48.00 Spinal stenosis, site unspec ified I10 Essential (primary) hyperten alysia F33.0 Major depressive disorder, r ecurrent, mild K86.1 Other chronic pancreatitis Assessments Date Code Description Provider 09/19/2021 R10.9 Unspecified abdominal pain Kun Aashish tavera M.D. 08/08/2021 K57.92 Diverticulitis of in testine, part unspecified, without perforation or abscess without bleeding Aashish Jane M.D. 08/01/2021 E78.5 Hyperlipidemia, unspecified [facility] helAashish cosme M.D. 08/01/2021 M48.00 Spinal stenosis, site unspecifie d Aashish Jane M.D. 08/01/2021 I10 Essential (primary) hypertension Aashish Jane M.D. 08/01/2021 F33.0 Major depressive disorder, recur rent, mild Aashish Jane M.D. 08/01/2021 K86.1 Other chronic pancreatitis Aashish Cole M.D. 07/06/2021 Z23 Encounter for immunization Aashish Cole M.D. 07/06/2021 Z23 Encounter for immunization Nurse s Schedule Plan of Treatment 03/06/2006 - Kamlesh Watson M.D.* 592.0 Calculus Of Kidney * 535.50 Gastritis Gastroduodenitis W/O Hem * 599.7 Hematuria* Follow up:* . Functional Status Description No Information Available Mental Status Description No Information Available Referrals Refer to Reason for Referral Status Appt Date Krunal Greene M.D. diverticulitis- eval and rx Scheduled 10/19/2021 [address] [facility], 1st [place] [address] [phone] Reddy Salazar M.D. diverticulitis- eval and rx Sent [address] [facility], [address] [place] [address] [phone]
--- OUTSIDE RECORDS SUMMARY | 2021-09-21 06:01 | CCD | Continuity of Care Document ---
Author Author Joao ALBARRAN M.D. Organization Unknown Address [address] [place] [address], [address] [place] [address] Phone [phone] Problems Active Problems Provider Date Bilateral inguinal hernia Gaviota Albarran M.D. Onset: 2014 Screening for malignant [...] lb BMI (Body Mass Index) 28.7 kg/m2 [place] Body Weight 166 lb Weight 90.833 kg BSA (Body Surface Area) 2.09 m2 08/06/2018 9:59am BP Systolic 158 mmHg BP Diastolic 97 mmHg Height 70 inches 5'10" Weight 192.00 lb BMI (Body Mass Index) 27.5 kg/m2 [place] Body Weight 166 lb Weight 87.091 kg BSA (Body Surface Area) 2.05 m2 Results Description No Information Available Procedures Date Code Description Status 08/12/2021 88087 Office/Outpatient New Moderate M DM 45-59 Minutes Completed Medical Devices Description No Information Available Encounters Type Date Location Provider Dx Diagnosis Office Visit 08/12/2021 2:00p [facility] Gaviota decker M.D. K85.90 Acute pancreatitis without necrosis or i nfection, unsp Assessments Date Code Description Provider 08/12/2021 K85.90 Acute pancreatitis without necro sis or infection, unspecified Gaviota Albarran M.D. Plan of Treatment 08/12/2021 - Gaviota Albarran M.D.* K85.90 Acute pancreatitis without necrosis or infection, unspecified* Comments:* Patient denies any history of hepatitis, jaundice, or peptic ulcer disease. He reports that he has had pancreatitis sometime long ago. His gallbladder has been removed. I looked back at Several prior CT scans. He has 1 from May 2019 which reveals no sign of duodenal diverticulum. A study from June 042017 looks remarkably similar to the current study. In 2018 the radiologist interpreted this as showing induration of the proximal duodenal sweep incorporating a portion of the pancreatic head which they found was decreased from November 2016. It was reported that these changes could reflect duodenitis or pancreatitis. Looking back to 2017 in October he had a CT scan which reported some mild mural t hickening of the duodenal C-loop and stranding in the adjacent pancreatic head. A subsequent CT scan November 042016 again shows changes very similar to his current study and this was interpreted as consistent with acute pancreatitis. He had several additional imaging studies during that time including an abdominal MRI and an ultrasound. He had an EGD and colonoscopy by Dr. Greene on November 082016. The EGD was reported as normal. He was admitted during that period of time with a diagnosis of acute pancreatitis. There is nothing in his recent studies to suggest a diagnosis of diverticulitis in the sense of diverticulitis of the colon. The radiologist had raised the issue of a possible duodenal diverticulum but prior studies including CT scan, MRI, and upper endoscopy have not shown a duodenal diverticulum. I think the findings are most consistent with pancreatitis limited to the pancreatic head. I advised the patient that I do not believe any sort of general surgery evaluation is warranted at this time. I believe he should follow-up with his exterior interior specialist to determine if there are any other studies or treatments that would be appropriate for his inflammation of the pancreatic head and adjacent duodenum. As Dr. Greene had scoped the patie nt several years ago I recommended that he follow-up with Dr. Greene and they requested that I make this referral. Functional Status Description No Information Available Mental Status Description No Information Available Referrals Refer to Reason for Referral Status Appt Date Krunal Greene M.D. DR DR GREENE: PLEASE EVLUAT E JOAO CORNEJO. I think the findings are most consistent with pancreatitis limited to the pancreatic head. I advised the patient that I do not believe any sort of general surgery evaluation is warranted at this time. I believe he should follow-up with his exterior interior specialist to determine if there are any other studies or treatments that would be appropriate for his inflammation of the pancreatic head and adjacent duodenum. As Dr. Grenee had scoped the patient several years ago I recommended that he follow-up with Dr. Greene and they requested that I make this referral. I HAVE ATTACHED A COPY OF MY OFFICE NOTE FOR YOUR REVIEW. THANK YOU IN ADVANCE FOR SEEING HIM. SINCERELY, GAVIOTA ALBARRAN M.D. Created [facility], Gastroenterology [address], [address] [place] [address] [phone]
--- OUTSIDE RECORDS SUMMARY | 2021-09-21 06:01 | CCD | Continuity of Care Document ---
Author Author Joao ALBARRAN M.D. Organization Unknown Address [address] [place] [address], [address] [place] [address] Phone [phone] Problems Active Problems Provider Date Bilateral inguinal [...] lb BMI (Body Mass Index) 28.7 kg/m2 [place] Body Weight 166 lb Weight 90.833 kg BSA (Body Surface Area) 2.09 m2 08/06/2018 9:59am BP Systolic 158 mmHg BP Diastolic 97 mmHg Height 70 inches 5'10" Weight 192.00 lb BMI (Body Mass Index) 27.5 kg/m2 [place] Body Weight 166 lb Weight 87.091 kg [...]
--- OUTSIDE RECORDS SUMMARY | 2021-09-21 06:01 | CCD | Continuity of Care Document ---
Author Author Joao JANE M.D. Organization Unknown Address 3 [facility] 3 [place] [address] Phone [phone] Care Team Providers Care Consumer Sales Representative Name Role Phone Ulysses Ortega D.O. AUTM [phone] Jonel Sánchez M.D. AUTM [phone] Krunal Greene M.D. AUTM [phone] Problems Active Problems Provider Date Benign essential [...] AT Bedtime 90Aashish Peñaloza M .D. 07/04/2021 [place] 5-325mg Tablets 1 tab by mouth two times a day as needed [id number] 60taAashish Browning M.D. 06/08/[address] Take One Capsule By Mouth Every Day 90Aashish Peñaloza M. D. 02/07/2021 Lorazepam 0.5mg Tablets 1 tab by mouth 1 hour prior to procedure- no driving [id number] 1tabs Mi Aashish timmons M.D. 11/05/2020 Tessalon Perles 100mg Capsules one by mouth three times a day as needed 30Zachary Peñaloza M.D. 08/16/2020 Fenofibrate 145mg Tablets Take One Tablet By Mouth Every Day 30Aashish Beasley M.D. 01/17 Losartan Potassium 100mg Tablets take one tablet by mouth every day maximum daily dose = 1 90Aashish Beasley M.D. 12/06/2016 Creon [id number] Caps DR Part take one to two [...] (SC)/(Im) Injection Ulysses Ortega D.O., [facility] 06/08/2015 Injection (SC)/(Im) Injection Aashish Jane M.D. 07/21/2014 Injection (SC)/(Im) Injection Divine Duran BOLT LABELER-BC 01/04/2012 Immunizations CPT Code Status Date Vaccine Lot # [id number] Given 07/06/2021 Influenza Virus Vaccine, Quadrivalent, Slit Virus, Im Use 3Y & Up [id number] 90581 Given 06/23/2020 Influenza Virus Vaccine, Quadrivalent, Slit Virus, Im Use 3Y & Up [id number] 54311 Given 07/04/2019 Influenza Virus Vaccine, Quadrivalent, Slit Virus, Im Use 3Y & Up [id number] 56838 Given 06/26/2018 Influenza Virus Vaccine, Quadrivalent, Slit Virus, Im Use 3Y & Up [id number] 23568 Given 07/16/2017 Influenza Virus Vaccine, Quadrivalent, Slit Virus, Im Use 3Y & Up [id number] 77018 Given 07/26/2016 Influenza Virus Vaccine, Quadrivalent, Slit Virus, Im Use 3Y & Up [id number] 30784 Given 08/09/2015 Influenza Vaccin e (Fluzone) 3Yrs Of Age Or Older Medicare Plans [id number] 53514 Given 08/09/2015 Influenza Virus Vac. Split Virus Individuals 3 Years And Above 43527 Given 06/08/2015 Tdap Tetanus,Dip htheria Toxoids/Acellular Pertussis 7Yrs Or Older [id number] 04432 Given 07/21/2014 Influenza Virus Vac. Split Virus Individuals 3 Years And Above [id number] Vital Signs Date Vital Result Comment 09/19/2021 11:29am BP Systolic 142 mmHg BP Diastolic 94 mmHg Body Temperature 98.0 F Heart Rate 88 /min Respiratory Rate 18 /min Height 71 inches 5'11" Weight 197.00 lb [place] Body Weight 172 lb BMI (Body Mass Index) 27.5 kg/m2 O2 % BldC Oximetry 90 % 08/08/2021 3:33pm BP Systolic 136 mmHg BP Diastolic 88 mmHg Body Temperature 99.2 F Heart Rate 96 /min Respiratory Rate 16 /min Height 71 inches 5'11" Weight 201.00 lb [place] Body Weight 172 lb BMI (Body Mass [...] eGFR 112 # Calc 2 eGFR Non-Afr. Syrian 96 # Calc 3 Lipid Panel 08/01/2021 [...] HCT IS 5% LESS SOURCE FOR DATA: [employer] 1800 OPERATION MANUAL( AUTOMATED BLOOD COUNTS AND [...] 2-19 YEARS EXCLUSIVE. 2 CKD-EPI 3 CKD-EPI Procedures Date Code Description Status 09/19/2021 08388 Office/Outpatient Established Mo d MDM 30-39 Min Completed 08/08/2021 56221 Office/Outpatient Established Mo d MDM 30-39 Min Completed 08/01/2021 78740 Office/Outpatient Established Mo d MDM 30-39 Min Completed Medical Devices Description No Information Available Encounters Type Date Location Provider Dx Diagnosis Office Visit 09/19/2021 11:30a [place] [facility] Aashish Jane M. D. R10.9 Unspecified abdominal pain Office Visit 08/08/2021 3:20p [place] [facility] Aashish Jane M. D. K57.92 Dvtrcli of intest, part unsp, w/o perf or abscess w/o bleed Office Visit 08/01/2021 10:00a [place] Aashish Jane M. D. E78.5 Hyperlipidemia, [...] Aashish Jane M.D. 08/01/2021 E78.5 Hyperlipidemia, unspecified [facility] Aashish culver M.D. 08/01/2021 M48.00 Spinal stenosis, [...] Description No Information Available Referrals Refer to Dr Reason for Referral Status Appt Date Krunal Greene M.D. diverticulitis- eval and rx Scheduled 10/19/2021 [address] [facility], [address] [place] [address] [phone] Reddy Salazar M.D. diverticulitis- eval and rx Sent [address] [place] [address], [address] [place] [address] [phone]
--- OUTSIDE RECORDS SUMMARY | 2021-09-21 06:01 | CCD | Continuity of Care Document ---
Author Author Joao JANE M.D. Organization Unknown Address 3 [facility] 3 [place] [address] Phone [phone] Care Team Providers Care Clay Worker Name Role Phone Ulysses Ortega D.O. AUTM [phone] Jonel Sánchez M.D. AUTM [phone] Krunal Greene M.D. AUTM [phone] Problems Active Problems Provider Date Benign essential [...] AT Bedtime 90Aashish Peñaloza M .D. 07/04/2021 [place] 5-325mg Tablets 1 tab by mouth two times a day as needed [id number] 60taAashish Browning M.D. 06/08/[address] Take One Capsule By Mouth Every Day 90Aashish Peñaloza M. D. 02/07/2021 Lorazepam 0.5mg Tablets 1 tab by mouth 1 hour prior to procedure- no driving [id number] 1tabs Mi Aashish timmons M.D. 11/05/2020 Tessalon Perles 100mg Capsules one by mouth three times a day as needed 30Zachary Peñaloza M.D. 08/16/2020 Fenofibrate 145mg Tablets Take One Tablet By Mouth Every Day 30Aashish Beasley M.D. 01/17 Losartan Potassium 100mg Tablets take one tablet by mouth every day maximum daily dose = 1 90Aashish Beasley M.D. 12/06/2016 [place]on [address]Vnbn Caps DR Part take one to two [...] 08/09/2015 Injection (SC)/(Im) Injection Ulysses Ortega D.O., [facility] 06/08/2015 Injection (SC)/(Im) Injection Aashish Jane M.D. 07/21/2014 Injection (SC)/(Im) Injection Divine Duran PHARMACY RESIDENT-BC 01/04/2012 Immunizations CPT Code Status Date Vaccine Lot # [id number] Given 07/06/2021 Influenza Virus Vaccine, Quadrivalent, Slit Virus, Im Use 3Y & Up [id number] 67813 Given 06/23/2020 Influenza Virus Vaccine, Quadrivalent, Slit Virus, Im Use 3Y & Up [id number] 73718 Given 07/04/2019 Influenza Virus Vaccine, Quadrivalent, Slit Virus, Im Use 3Y & Up [id number] 50725 Given 06/26/2018 Influenza Virus Vaccine, Quadrivalent, Slit Virus, Im Use 3Y & Up [id number] 99047 Given 07/16/2017 Influenza Virus Vaccine, Quadrivalent, Slit Virus, Im Use 3Y & Up [id number] 81134 Given 07/26/2016 Influenza Virus Vaccine, Quadrivalent, Slit Virus, Im Use 3Y & Up [id number] 97397 Given 08/09/2015 Influenza Vaccin e (Fluzone) 3Yrs Of Age Or Older Medicare Plans [id number] 68797 Given 08/09/2015 Influenza Virus Vac. Split Virus Individuals 3 Years And Above 22320 Given 06/08/2015 Tdap Tetanus,Dip htheria Toxoids/Acellular Pertussis 7Yrs Or Older [id number] 65715 Given 07/21/2014 Influenza Virus Vac. Split Virus Individuals 3 Years And Above [id number] Vital Signs Date Vital Result Comment 09/19/2021 11:29am BP Systolic 142 mmHg BP Diastolic 94 mmHg Body Temperature 98.0 F Heart Rate 88 /min Respiratory Rate 18 /min Height 71 inches 5'11" Weight 197.00 lb [place] Body Weight 172 lb BMI (Body Mass Index) 27.5 kg/m2 O2 % BldC Oximetry 90 % 08/08/2021 3:33pm BP Systolic 136 mmHg BP Diastolic 88 mmHg Body Temperature 99.2 F Heart Rate 96 /min Respiratory Rate 16 /min Height 71 inches 5'11" Weight 201.00 lb [place] Body Weight 172 lb BMI (Body Mass [...] eGFR 106 # Calc 2 eGFR Non-Afr. Nigerien 92 # Calc 3 CBC 09/19/2021 FPA/Inhouse [...] Laboratory test finding 09/19/2021 [facility] [place] Amylase <pending> Lipase <pending> CMP 08/01/2021 FPA/Inhouse Glu 103 mg/dL 70 [...] eGFR 112 # Calc 5 eGFR Non-Afr. Nigerien 96 # Calc 6 Lipid Panel 08/01/2021 [...] HCT IS 5% LESS SOURCE FOR DATA: [employer] 1800 OPERATION MANUAL( AUTOMATED BLOOD COUNTS AND [...] HCT IS 5% LESS SOURCE FOR DATA: [employer] 1800 OPERATION MANUAL( AUTOMATED BLOOD COUNTS AND [...] CKD-EPI Procedures Date Code Description Status 09/19/2021 13423 Office/Outpatient Established Mo d MDM 30-39 Min Completed 08/08/2021 02010 Office/Outpatient Established Mo d MDM 30-39 Min Completed 08/01/2021 05503 Office/Outpatient Established Mo d MDM 30-39 Min Completed Medical Devices Description No Information Available Encounters Type Date Location Provider Dx Diagnosis Office Visit 09/19/2021 11:30a [place] [facility] Aashish Jane M. D. R10.9 Unspecified abdominal pain Office Visit 08/08/2021 3:20p [place] [facility] Aashish Jane M. D. K57.92 Dvtrcli of intest, part unsp, w/o perf or abscess w/o bleed Office Visit 08/01/2021 10:00a [place] [facility] Aashish Jane M. D. E78.5 Hyperlipidemia, [...] Aashish Jane M.D. 08/01/2021 E78.5 Hyperlipidemia, unspecified [facility] Aashish culver M.D. 08/01/2021 M48.00 Spinal [...] M.D. diverticulitis- eval and rx Scheduled 10/19/2021 [address] [facility], [address] [place] [address] [phone] Reddy Salazar M.D. diverticulitis- eval and rx Sent 6 [facility], [address] [place] [address] [phone]
--- OUTSIDE RECORDS SUMMARY | 2021-09-21 06:02 | CCD | Continuity of Care Document ---
Author Author Joao JANE M.D. Organization Unknown Address 3 [facility] 3 [place] [address] Phone [phone] Care Team Providers Care Client Care Consultant Name Role Phone Ulysses Ortega D.O. AUTM [phone] Jonel Sánchez M.D. AUTM [phone] Problems Active Problems Provider Date Benign essential [...] twice a day 20tabs Aashish Jane M.D. 08/08/20 21 Tamsulosin HCL 0.4mg Capsules Take One Capsule By Mouth AT Bedtime 90caps Aashish Jane M .D. 07/04/2021 [place] 5-325mg Tablets 1 tab by mouth two times a day as needed [id number] 60Aashish Beasley M.D. 06/08/[address] 1 by mouth every day 90Aashish Peñaloza M.D. 02/08/20 21 Lorazepam 0.5mg Tablets 1 tab by mouth 1 hour prior to procedure- no driving [id number] 1tabs Aashish Mas M.D. 11/05/2020 Tessalon Perles 100mg Capsules one by mouth three times a day as needed 30Zachary Peñaloza M.D. 08/16/2020 Fenofibrate 145mg Tablets take one tablet by mouth every day 30Aashish Beasley M.D. 01/17 Losartan Potassium 100mg Tablets take one tablet by mouth every day maximum daily dose = 1 90Aashish Beasley M.D. 12/06/2016 Creon [id number] Caps Part take one to two capsules by [...] 08/09/2015 Injection (SC)/(Im) Injection Ulysses Ortega D.O., [facility] 06/08/2015 Injection (SC)/(Im) Injection Aashish Jane M.D. 07/21/2014 Injection (SC)/(Im) Injection Divine Duran VP SCIENTIFIC- 01/04/2012 Immunizations CPT Code Status Date Vaccine Lot # [id number] Given 07/06/2021 Influenza Virus Vaccine, Quadrivalent, Slit Virus, Im Use 3Y & Up [id number] 33073 Given 06/23/2020 Influenza Virus Vaccine, Quadrivalent, Slit Virus, Im Use 3Y & Up [id number] 03898 Given 07/04/2019 Influenza Virus Vaccine, Quadrivalent, Slit Virus, Im Use 3Y & Up [id number] 88605 Given 06/26/2018 Influenza Virus Vaccine, Quadrivalent, Slit Virus, Im Use 3Y & Up [id number] 27255 Given 07/16/2017 Influenza Virus Vaccine, Quadrivalent, Slit Virus, Im Use 3Y & Up [id number] 55461 Given 07/26/2016 Influenza Virus Vaccine, Quadrivalent, Slit Virus, Im Use 3Y & Up [id number] 05509 Given 08/09/2015 Influenza Vaccin e (Fluzone) 3Yrs Of Age Or Older Medicare Plans [id number] 26238 Given 08/09/2015 Influenza Virus Vac. Split Virus Individuals 3 Years And Above 37880 Given 06/08/2015 Tdap Tetanus,Dip htheria Toxoids/Acellular Pertussis 7Yrs Or Older [id number] 54821 Given 07/21/2014 Influenza Virus Vac. Split Virus Individuals 3 Years And Above [id number] Vital Signs Date Vital Result Comment 08/08/2021 3:33pm BP Systolic 136 mmHg BP Diastolic 88 mmHg Body Temperature 99.2 F Heart Rate 96 /min Respiratory Rate 16 /min Height 71 inches 5'11" Weight 201.00 lb [place] Body Weight 172 lb BMI (Body Mass Index) 28.0 kg/m2 O2 % BldC Oximetry 95 % 08/01/2021 10:02am BP Systolic 140 mmHg BP Diastolic 70 mmHg Body Temperature 97.7 F Heart Rate 81 /min Respiratory Rate 16 /min Height 71 inches 5'11" Weight 201.00 lb [place] Body Weight 172 lb BMI (Body Mass Index) 28.0 kg/m2 O2 % BldC Oximetry 98 % Results Test Acquired Date Facility Test [...] eGFR 112 # Calc 2 eGFR Non-Afr. New Zealander 96 # Calc 3 Lipid Panel 08/01/2021 [...] eGFR 112 # Calc 5 eGFR Non-Afr. New Zealander 96 # Calc 6 1 NORMAL RANGES Age WBC RBC HGB [...] HCT IS 5% LESS SOURCE FOR DATA: [employer] DYN 1800 OPERATION MANUAL( AUTOMATED BLOOD COUNTS [...] >32 mL/min Normal 5 CKD-EPI 6 CKD-EPI Procedures Date Code Description Status 08/08/2021 88243 Office/Outpatient Established Mo d MDM 30-39 Min Completed 08/01/2021 90312 Office/Outpatient Established Mo d MDM 30-39 Min Completed Medical Devices Description No Information Available Encounters Type Date Location Provider Dx Diagnosis Office Visit 08/08/2021 3:20p [place] [facility] Aashish Jane M. D. K57.92 Dvtrcli of intest, part unsp, w/o perf or abscess w/o bleed Office Visit 08/01/2021 10:00a [place] [facility] Aashish Jane M. D. E78.5 Hyperlipidemia, unspecified M48.00 Spinal stenosis, site unspec ified I10 Essential (primary) hyperten alysia F33.0 Major depressive disorder, r ecurrent, mild K86.1 Other chronic pancreatitis Assessments Date Code Description Provider 08/08/2021 K57.92 Diverticulitis of in testine, part unspecified, without perforation or abscess without bleeding Aashish Jane M.D. 08/01/2021 E78.5 [facility], [facility] 08/01/2021 M48.00 Spinal stenosis, site unspecifie d Aashish Jane M.D. 08/01/2021 I10 Essential (primary) hypertension Aashish Jane M.D. 08/01/2021 F33.0 Major depressive disorder, recur rent, mild Aashish Jane M.D. 08/01/2021 K86.1 Other chronic pancreatitis Aashish Cole M.D. 07/06/2021 Z23 Encounter for immunization Aashish Cole M.D. 07/06/2021 Z23 Encounter for immunization Nurse s Schedule 03/10/2021 E78.5 Hyperlipidemia, unspecified José Miguel Ortega DGregory, FAAFP 03/10/2021 E78.5 Hyperlipidemia, unspecified [facility] [place] Schedule Plan of Treatment Future Appointment(s):* 08/23/2021 11:00 am - Aashish Jane M.D. at [facility] 03/06/2006 - Kamlesh Watson M.D.* 592.0 Calculus Of Kidney * 535.50 Gastritis Gastroduodenitis W/O Hem * 599.7 Hematuria* Follow up:* . Functional Status Description No Information Available Mental Status Description No Information Available Referrals Refer to Reason for Referral Status Appt Date Reddy Salazar M.D. diverticulitis- eval and rx Sent 6 [facility], [address] [place] [id number] [phone]
--- OUTSIDE RECORDS SUMMARY | 2021-09-21 06:02 | CCD | Continuity of Care Document ---
Author Author Joao JANE M.D. Organization Unknown Address 3 [facility] 3 [place] [address] Phone [phone] Care Team Providers Care Mobile Mechanic Name Role Phone Ulysses Ortega D.O. AUTM [phone] Jonel Sánchez M.D. AUTM [phone] Problems Active Problems Provider Date Benign essential [...] Bedtime 90caps Aashish Jane M .D. 07/04/2021 [employer] 5-325mg Tablets 1 tab by mouth two times a day as needed [id number] 60Aashish Beasley M.D. 06/08/[address] 1 by mouth every day 90Aashish Peñaloza M.D. 02/08/20 21 Lorazepam 0.5mg Tablets 1 tab by mouth 1 hour prior to procedure- no driving [id number] 1tabs Aashish Mas M.D. 11/05/2020 Tessalon Perles 100mg Capsules one by mouth three times a day as needed 30Zachary Peñaloza M.D. 08/16/2020 Fenofibrate 145mg Tablets take one tablet by mouth every day 30Aashish Beasley M.D. 01/17 Losartan Potassium 100mg Tablets take one tablet by mouth every day maximum daily dose = 1 90Aashish Beasley M.D. 12/06/2016 Creon 26637-44394Bgpb Caps Part take one to two capsules [...] 08/09/2015 Injection (SC)/(Im) Injection Ulysses Ortega D.O., [facility] 06/08/2015 Injection (SC)/(Im) Injection Aashish Jane M.D. 07/21/2014 Injection (SC)/(Im) Injection Divine Duran CONTROLLED AREA CHECKER- 01/04/2012 Immunizations CPT Code Status Date Vaccine Lot # [id number] Given 07/06/2021 Influenza Virus Vaccine, Quadrivalent, Slit Virus, Im Use 3Y & Up [id number] 14860 Given 06/23/2020 Influenza Virus Vaccine, Quadrivalent, Slit Virus, Im Use 3Y & Up [id number] 19483 Given 07/04/2019 Influenza Virus Vaccine, Quadrivalent, Slit Virus, Im Use 3Y & Up [id number] 98744 Given 06/26/2018 Influenza Virus Vaccine, Quadrivalent, Slit Virus, Im Use 3Y & Up [id number] 58760 Given 07/16/2017 Influenza Virus Vaccine, Quadrivalent, Slit Virus, Im Use 3Y & Up [id number] 19763 Given 07/26/2016 Influenza Virus Vaccine, Quadrivalent, Slit Virus, Im Use 3Y & Up [id number] 62126 Given 08/09/2015 Influenza Vaccin e (Fluzone) 3Yrs Of Age Or Older Medicare Plans [id number] 19372 Given 08/09/2015 Influenza Virus Vac. Split Virus Individuals 3 Years And Above 68491 Given 06/08/2015 Tdap Tetanus,Dip htheria Toxoids/Acellular Pertussis 7Yrs Or Older [id number] 33396 Given 07/21/2014 Influenza Virus Vac. Split Virus Individuals 3 Years And Above [id number] Vital Signs Date Vital Result Comment 08/08/2021 3:33pm BP Systolic 136 mmHg BP Diastolic 88 mmHg Body Temperature 99.2 F Heart Rate 96 /min Respiratory Rate 16 /min Height 71 inches 5'11" Weight 201.00 lb [place] Body Weight 172 lb BMI (Body Mass Index) 28.0 kg/m2 O2 % BldC Oximetry 95 % 08/01/2021 10:02am BP Systolic 140 mmHg BP Diastolic 70 mmHg Body Temperature 97.7 F Heart Rate 81 /min Respiratory Rate 16 /min Height 71 inches 5'11" Weight 201.00 lb [place] Body Weight 172 lb BMI (Body Mass [...] eGFR 112 # Calc 2 eGFR Non-Afr. Nepalese 96 # Calc 3 Lipid Panel 08/01/2021 [...] eGFR 112 # Calc 5 eGFR Non-Afr. Nepalese 96 # Calc 6 CMP 02/07/2021 FPA/Inhouse [...] eGFR 112 # Calc 8 eGFR Non-Afr. Nepalese 96 # Calc 9 Lipid Panel 02/07/2021 [...] HCT IS 5% LESS SOURCE FOR DATA: [employer] 1800 OPERATION MANUAL( AUTOMATED BLOOD COUNTS AND [...] 9 CKD-EPI Procedures Date Code Description Status 08/08/2021 13674 Office/Outpatient Established Mo d MDM 30-39 Min Completed 08/01/2021 82375 Office/Outpatient Established Mo d MDM 30-39 Min Completed 02/07/2021 04042 Office/Outpatient Established Mo d MDM 30-39 Min Completed Medical Devices Description No Information Available Encounters Type Date Location Provider Dx Diagnosis Office Visit 08/08/2021 3:20p [place] [facility] Aashish Jane M. D. K57.92 Dvtrcli of intest, part unsp, w/o perf or abscess w/o bleed Office Visit 08/01/2021 10:00a [place] Aashish Jane M. D. E78.5 Hyperlipidemia, unspecified M48.00 Spinal stenosis, site unspec ified I10 Essential (primary) hyperten alysia F33.0 Major depressive disorder, r ecurrent, mild K86.1 Other chronic pancreatitis Office Visit 02/07/2021 10:00a [facility] Aashish Jane M. D. M48.00 Spinal stenosis, site unspecified I10 Essential (primary) hyperten alysia F33.0 Major depressive disorder, r ecurrent, mild E78.5 Hyperlipidemia, unspecified K86.1 Other chronic pancreatitis Assessments Date Code Description Provider 08/08/2021 K57.92 Diverticulitis of in testine, part unspecified, without perforation or abscess without bleeding Aashish Jane M.D. 08/01/2021 E78.5 [facility]lipidemia, [facility] 08/01/2021 M48.00 Spinal stenosis, site unspecifie d Aashish Jane M.D. 08/01/2021 I10 Essential (primary) hypertension Aashish Jane M.D. 08/01/2021 F33.0 Major depressive disorder, recur samara Aashish Hernandez M.D. 08/01/2021 K86.1 Other chronic pancreatitis Aashish Cole M.D. 07/06/2021 Z23 Encounter for immunization Aashish Cole M.D. 07/06/2021 Z23 Encounter for immunization Nurse s Schedule 03/10/2021 E78.5 Hyperlipidemia, unspecified José Miguel hamilton Ortega D.O., FAAFP 03/10/2021 E78.5 Hyperlipidemia, unspecified [facility] [place] Schedule 02/07/2021 M48.00 Spinal stenosis, site unspecifie d Aashish Jane M.D. 02/07/2021 I10 Essential (primary) hypertension Aashish Jane M.D. 02/07/2021 F33.0 Major depressive disorder, recur deepnikita Aashish Hernandez M.D. 02/07/2021 E78.5 [facility]lipidemia, [facility] 02/07/2021 K86.1 Other chronic pancreatitis Aashish Cole M.D. Plan of Treatment 03/06/2006 - Kamlesh Watson M.D.* 592.0 Calculus Of Kidney * 535.50 Gastritis Gastroduodenitis W/O Hem * 599.7 Hematuria* Follow up:* . Functional Status Description No Information Available Mental Status Description No Information Available Referrals Refer to Reason for Referral Status Appt Date Reddy Salazar M.D. diverticulitis- eval and rx Created 6 [facility], [address] [place] [address] [phone]
--- OUTSIDE RECORDS SUMMARY | 2021-09-21 06:02 | CCD | Continuity of Care Document ---
Author Author Joao ALBARRAN M.D. Organization Unknown Address [address] [place] [address], [address] [place] [address] Phone [phone] Problems Active Problems Provider Date Bilateral inguinal [...] Hendricks M.D. Onset: 09/25/2016 Solitary sacroiliitis Mari Hendrikcs M.D. Onset: 09/25/2016 Lesion of ulnar nerve [...] lb BMI (Body Mass Index) 28.7 kg/m2 [place] Body Weight 166 lb Weight 90.833 kg BSA (Body Surface Area) 2.09 m2 08/06/2018 9:59am BP Systolic 158 mmHg BP Diastolic 97 mmHg Height 70 inches 5'10" Weight 192.00 lb BMI (Body Mass Index) 27.5 kg/m2 [place] Body Weight 166 lb Weight 87.091 kg [...]
--- OUTSIDE RECORDS SUMMARY | 2021-09-21 06:02 | CCD | Continuity of Care Document ---
Author Author Joao JANE M.D. Organization Unknown Address 3 [facility] 3 [place] [address] Phone [phone] Care Team Providers Care Machine Scallop Cutter Name Role Phone Ulysses Ortega D.O. AUTM [phone] Jonel Sánchez M.D. AUTM [phone] Problems Active Problems Provider Date Benign essential [...] Bedtime 90caps Aashish Jane M .D. 07/04/2021 [place] 5-325mg Tablets 1 tab by mouth two times a day as needed [id number] 60tabs Aashish Jane M.D. 06/08/[address] 1 by mouth every day 90Aashish Peñaloza M.D. 02/08/20 21 Lorazepam 0.5mg Tablets 1 tab by mouth 1 hour prior to procedure- no driving [id number] 1tabs Aashish Mas M.D. 11/05/2020 Tessalon Perles 100mg Capsules one by mouth three times a day as needed 30Zachary Peñaloza M.D. 08/16/2020 Fenofibrate 145mg Tablets take one tablet by mouth every day 30taAashish Browning M.D. 01/17 Losartan Potassium 100mg Tablets take one tablet by mouth every day maximum daily dose = 1 90Aashish Beasley M.D. 12/06/[address]on [id number] Caps [address] Part take one to two [...] 08/09/2015 Injection (SC)/(Im) Injection Ulysses Ortega D.O., [facility] 06/08/2015 Injection (SC)/(Im) Injection Aashish Jane M.D. 07/21/2014 Injection (SC)/(Im) Injection Divine Duran CODE ENFORCEMENT OFFICER- 01/04/2012 Immunizations CPT Code Status Date Vaccine Lot # [id number] Given 07/06/2021 Influenza Virus Vaccine, Quadrivalent, Slit Virus, Im Use 3Y & Up [id number] 08275 Given 06/23/2020 Influenza Virus Vaccine, Quadrivalent, Slit Virus, Im Use 3Y & Up [id number] 95602 Given 07/04/2019 Influenza Virus Vaccine, Quadrivalent, Slit Virus, Im Use 3Y & Up [id number] 36547 Given 06/26/2018 Influenza Virus Vaccine, Quadrivalent, Slit Virus, Im Use 3Y & Up [id number] 20514 Given 07/16/2017 Influenza Virus Vaccine, Quadrivalent, Slit Virus, Im Use 3Y & Up [id number] 22545 Given 07/26/2016 Influenza Virus Vaccine, Quadrivalent, Slit Virus, Im Use 3Y & Up [id number] 03425 Given 08/09/2015 Influenza Vaccin e (Fluzone) 3Yrs Of Age Or Older Medicare Plans [id number] 01423 Given 08/09/2015 Influenza Virus Vac. Split Virus Individuals 3 Years And Above 33859 Given 06/08/2015 Tdap Tetanus,Dip htheria Toxoids/Acellular Pertussis 7Yrs Or Older [id number] 66250 Given 07/21/2014 Influenza Virus Vac. Split Virus Individuals 3 Years And Above [id number] Vital Signs Date Vital Result Comment 08/01/2021 10:02am BP Systolic 140 mmHg BP Diastolic 70 mmHg Body Temperature 97.7 F Heart Rate 81 /min Respiratory Rate 16 /min Height 71 inches 5'11" Weight 201.00 lb [place] Body Weight 172 lb BMI (Body Mass Index) 28.0 kg/m2 O2 % BldC Oximetry 98 % 02/07/2021 9:56am BP Systolic 124 mmHg BP Diastolic 80 mmHg Body Temperature 98.0 F Heart Rate 100 /min Respiratory Rate 18 /min Height 71 inches 5'11" Weight 198.00 lb [place] Body Weight 172 lb BMI (Body Mass [...] eGFR 112 # Calc 2 eGFR Non-Afr. Vincentian 96 # Calc 3 Lipid Panel 08/01/2021 [...] eGFR 112 # Calc 5 eGFR Non-Afr. Vincentian 96 # Calc 6 CMP 02/07/2021 FPA/Inhouse [...] eGFR 112 # Calc 8 eGFR Non-Afr. Vincentian 96 # Calc 9 Lipid Panel 02/07/2021 [...] HCT IS 5% LESS SOURCE FOR DATA: [employer] 1800 OPERATION MANUAL( AUTOMATED BLOOD COUNTS AND [...] CKD-EPI Procedures Date Code Description Status 08/01/2021 50754 Office/Outpatient Established Mo d MDM 30-39 Min Completed 02/07/2021 33703 Office/Outpatient Established Mo d MDM 30-39 Min Completed Medical Devices Description No Information Available Encounters Type Date Location Provider Dx Diagnosis Office Visit 08/01/2021 10:00a [place] [facility] Aashish Jane M. D. E78.5 Hyperlipidemia, unspecified M48.00 Spinal stenosis, site unspec ified I10 Essential (primary) hyperten alysia F33.0 Major depressive disorder, r ecurrent, mild K86.1 Other chronic pancreatitis Office Visit 02/07/2021 10:00a [place] [facility] Aashish Jane M. D. M48.00 Spinal [...] E78.5 Hyperlipidemia, unspecified [facility] 03/10/2021 E78.5 Hyperlipidemia, unspecified [facility] [place] Schedule 02/07/2021 M48.00 Spinal stenosis, site unspecifie d Aashish Jane M.D. 02/07/2021 I10 Essential (primary) hypertension Aashish Jane M.D. 02/07/2021 F33.0 Major depressive disorder, recur rent, mild Aashish Jane M.D. 02/07/2021 E78.5 Hyperlipidemia, unspecified [facility] helAashish cosme M.D. 02/07/2021 K86.1 Other chronic pancreatitis Kun Aashish tavera M.D. Plan of Treatment 03/06/2006 - Kamlesh Watson M.D.* 592.0 Calculus Of Kidney * 535.50 Gastritis Gastroduodenitis W/O Hem * 599.7 Hematuria* Follow up:* . Functional Status Description No Information Available Mental Status Description No Information Available Referrals Description No Information Available
--- OUTSIDE RECORDS SUMMARY | 2021-09-21 06:02 | CCD | Continuity of Care Document ---
Author Author Joao JANE M.D. Organization Unknown Address 3 [facility] 3 [place] [address] Phone [phone] Care Team Providers Care Carousel Operator Name Role Phone Ulysses Ortega D.O. AUTM [phone] Jonel Sánchez M.D. AUTM [phone] Problems Active Problems Provider Date Benign essential [...] Bedtime 90caps Aashish Jane M .D. 07/04/2021 [place] 5-325mg Tablets 1 tab by mouth two times a day as needed [id number] 60Aashish Beasley M.D. 06/08/[address] 1 by mouth every day 90Aashish Peñaloza M.D. 02/08/20 21 Lorazepam 0.5mg Tablets 1 tab by mouth 1 hour prior to procedure- no driving [id number] 1tabs Aashish Mas M.D. 11/05/2020 Tessalon Perles 100mg Capsules one by mouth three times a day as needed 30Zachary Peñaloza M.D. 08/16/2020 Fenofibrate 145mg Tablets take one tablet by mouth every day 30Aashish Beasley M.D. 01/17 Losartan Potassium 100mg Tablets take one tablet by mouth every day maximum daily dose = 1 90Aashish Beasley M.D. 12/06/2016 Creon [id number] Caps Part take one to two capsules [...] Take One Tablet By Mouth Every Day 90aAshish Beasley M.D. 08/05/20 13 Docusate Sodium 100mg Capsules 1 po bid 60caps Unknown Medications Administered in Office Medication SIG Qnty Indications Ordering Provider Date Injection (SC)/(Im) Injection Aashish Jane M.D. 08/09/2015 Injection (SC)/(Im) Injection Ulysses Ortega D.O., [facility] 06/08/2015 Injection (SC)/(Im) Injection Aashish Jane M.D. 07/21/2014 Injection (SC)/(Im) Injection Divine Duran [employer] SUPERVISOR- 01/04/2012 Immunizations CPT Code Status Date Vaccine Lot # [id number] Given 07/06/2021 Influenza Virus Vaccine, Quadrivalent, Slit Virus, Im Use 3Y & Up [id number] 27382 Given 06/23/2020 Influenza Virus Vaccine, Quadrivalent, Slit Virus, Im Use 3Y & Up [id number] 29299 Given 07/04/2019 Influenza Virus Vaccine, Quadrivalent, Slit Virus, Im Use 3Y & Up [id number] 33408 Given 06/26/2018 Influenza Virus Vaccine, Quadrivalent, Slit Virus, Im Use 3Y & Up [id number] 45035 Given 07/16/2017 Influenza Virus Vaccine, Quadrivalent, Slit Virus, Im Use 3Y & Up [id number] 84694 Given 07/26/2016 Influenza Virus Vaccine, Quadrivalent, Slit Virus, Im Use 3Y & Up [id number] 64517 Given 08/09/2015 Influenza Vaccin e (Fluzone) 3Yrs Of Age Or Older Medicare Plans [id number] 48190 Given 08/09/2015 Influenza Virus Vac. Split Virus Individuals 3 Years And Above 25648 Given 06/08/2015 Tdap Tetanus,Dip htheria Toxoids/Acellular Pertussis 7Yrs Or Older [id number] 69793 Given 07/21/2014 Influenza Virus Vac. Split Virus Individuals 3 Years And Above [id number] Vital Signs Date Vital Result Comment 08/08/2021 3:33pm BP Systolic 136 mmHg BP Diastolic 88 mmHg Body Temperature 99.2 F Heart Rate 96 /min Respiratory Rate 16 /min Height 71 inches 5'11" Weight 201.00 lb [place] Body Weight 172 lb BMI (Body Mass Index) 28.0 kg/m2 O2 % BldC Oximetry 95 % 08/01/2021 10:02am BP Systolic 140 mmHg BP Diastolic 70 mmHg Body Temperature 97.7 F Heart Rate 81 /min Respiratory Rate 16 /min Height 71 inches 5'11" Weight 201.00 lb [place] Body Weight 172 lb BMI (Body Mass [...] eGFR 112 # Calc 2 eGFR Non-Afr. [place]e 96 # Calc 3 Lipid Panel 08/01/2021 [...] eGFR 112 # Calc 5 eGFR Non-Afr. [place] 96 # Calc 6 CMP 02/07/2021 FPA/Inhouse [...] eGFR 112 # Calc 8 eGFR Non-Afr. [place] 96 # Calc 9 Lipid Panel 02/07/2021 [...] HCT IS 5% LESS SOURCE FOR DATA: [employer] 1800 OPERATION MANUAL( AUTOMATED BLOOD COUNTS AND [...] CKD-EPI Procedures Date Code Description Status 08/08/2021 71324 Office/Outpatient Established Mo d MDM 30-39 Min Completed 08/01/2021 55055 Office/Outpatient Established Mo d MDM 30-39 Min Completed 02/07/2021 19496 Office/Outpatient Established Mo d MDM 30-39 Min Completed Medical Devices Description No Information Available Encounters Type Date Location Provider Dx Diagnosis Office Visit 08/08/2021 3:20p [facility] Aashish Jane M. D. K57.92 Dvtrcli of intest, part unsp, w/o perf or abscess w/o bleed Office Visit 08/01/2021 10:00a [facility] Aashish Jane M. D. E78.5 Hyperlipidemia, unspecified M48.00 Spinal stenosis, site unspec ified I10 Essential (primary) hyperten alysia F33.0 Major depressive disorder, r ecurrent, mild K86.1 Other chronic pancreatitis Office Visit 02/07/2021 10:00a [facility] Aashish Jane M. D. M48.00 Spinal stenosis, site unspecified I10 Essential (primary) hyperten alysia F33.0 Major depressive disorder, r ecurrent, mild E78.5 Hyperlipidemia, unspecified K86.1 Other chronic pancreatitis Assessments Date Code Description Provider 08/08/2021 K57.92 Diverticulitis of in testine, part unspecified, without perforation or abscess without bleeding Aashish Jane M.D. 08/01/2021 E78.5 [facility], [facility] 08/01/2021 M48.00 Spinal stenosis, [...] FAAFP 03/10/2021 E78.5 Hyperlipidemia, unspecified [facility] Schedule 02/07/2021 M48.00 Spinal stenosis, site unspecifie d Aashish Jane M.D. 02/07/2021 I10 Essential (primary) hypertension Aashish Jane M.D. 02/07/2021 F33.0 Major depressive disorder, recur deepnikita Aashish Hernandez M.D. 02/07/2021 E78.5 [facility]lipidemia, [facility] 02/07/2021 K86.1 Other chronic pancreatitis [...] M.D. diverticulitis- eval and rx Created [address] [facility], [address] [place] [address] [phone]
--- OUTSIDE RECORDS SUMMARY | 2021-09-21 06:03 | CCD ---
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 Care Chemical Educator Name Role Phone Stacy, A Khalid Unavailable [phone] Stacy, A Khalid Unavailable [phone] Stacy, A Khalid Unavailable [phone] Stacy, A Khalid Unavailable [phone] Stacy, A Khalid Unavailable [phone] Stacy, A Khalid Unavailable [phone] Stacy, A Khalid Unavailable [phone] Stacy, A Khalid Unavailable +[phone] Stacy, A Khalid Unavailable [phone] Stacy, A Khalid Unavailable [phone] Stacy, A Khalid Unavailable +[phone] Stacy, A Khalid Unavailable +[phone] Stacy, A Khalid Unavailable +[phone] Stacy, A Khalid Unavailable +[phone] Satcy, A Khalid Unavailable +[phone] Stacy, A Khalid Unavailable [phone] Stacy, A Khalid Unavailable [phone] Stacy, A Khalid Unavailable [phone] Stacy, A Khalid Unavailable [phone] Stacy, A Khalid Unavailable +[phone] Stacy, A Khalid Unavailable +[phone] Stacy, A Khalid Unavailable +[phone] Stacy, A Khalid Unavailable +[phone] Stacy, A Khalid Unavailable +[phone] Tsacy, A Khalid Unavailable +[phone] Stacy, A Khalid Unavailable +[phone] Stacy, A Khalid Unavailable +[phone] Stacy, A Khalid Unavailable [phone] Stacy, A Khalid Unavailable [phone] Stacy, A Khalid Unavailable [phone] Stacy, A Khalid Unavailable [phone] Stacy, A Khalid Unavailable [phone] Stacy, A Khalid Unavailable [phone] Stacy, A Khalid Unavailable [phone] Stacy, A Khalid Unavailable [phone] Stacy, A Khalid Unavailable [phone] Stacy, A Khalid Unavailable +[phone] Stacy, A Khalid Unavailable +[phone] Stacy, A Khalid Unavailable [phone] Stacy, A Khalid Unavailable +[phone] Stacy, A Khalid Unavailable [phone] Stanley ALBARRAN MD Unavailable Unavailable DEINO, O GAVIOTA GAMEZ Unavailable Unavailable DEION, O GAVIOTA GAMEZ Unavailable Unavailable DEION, O GAVIOTA GAMEZ Unavailable Unavailable DEION, O GAVIOTA GAMEZ Unavailable Unavailable DEION, O GAVIOTA GAMEZ Unavailable Unavailable DEION, O GAVIOTA GAMEZ Unavailable Unavailable DEION, O GAVIOTA GAMEZ Unavailable Unavailable DEION, O GAVIOTA GAMEZ Unavailable Unavailable DEION, O GAVIOTA GAMEZ Unavailable Unavailable DEION, O GAVIOTA GAMEZ Unavailable Unavailable DEION, O GAVIOTA GAMEZ Unavailable Unavailable DEION, O GAVIOTA GAMEZ Unavailable Unavailable DEION, O GAVIOTA GAMEZ Unavailable Unavailable DEION, O GAVIOTA MD Unavailable Unavailable Stanley ALBARRAN MD Unavailable Unavailable Stanley ALBARRAN MD Unavailable Unavailable Stanley ALBARRAN MD Unavailable Unavailable Stanley ALBARRAN MD Unavailable Unavailable Stanley ALBARRAN MD Unavailable Unavailable Stanley ALBARRAN MD Unavailable Unavailable DEION O GAVIOTA GAMEZ Unavailable Unavailable DEION O GAVIOTA GAMEZ Unavailable Unavailable DEION O GAVIOTA GAMEZ Unavailable Unavailable DEION O GAVIOTA GAMEZ Unavailable Unavailable DEION O GAVIOTA GAMEZ Unavailable Unavailable DEION O GAVIOTA GAMEZ Unavailable Unavailable DEION O GAVIOTA GAMEZ Unavailable Unavailable DEION O GAVIOTA GAMEZ Unavailable Unavailable DEION O GAVIOTA GAMEZ Unavailable Unavailable DEION O GAVIOTA GAMEZ Unavailable Unavailable DEION O GAVIOTA GAMEZ Unavailable Unavailable DEION O GAVIOTA GAMEZ Unavailable Unavailable DEION O GAVIOTA GAMEZ Unavailable Unavailable Stanley ALBARRAN MD Unavailable Unavailable Stanley ALBARRAN MD Unavailable Unavailable Stanlye ALBARRAN MD Unavailable Unavailable Stanley ALBARRAN MD Unavailable Unavailable Stanley ALBARRAN MD Unavailable Unavailable DEION O GAVIOTA GAMEZ Unavailable Unavailable Stanley ALBARRAN MD Unavailable Unavailable Stanley ALBARRAN MD Unavailable Unavailable Stanley ALBARRAN MD Unavailable Unavailable Stanley ALBARRAN MD Unavailable Unavailable Stanley ALBARRAN MD Unavailable Unavailable Ziyad SNADS MD Unavailable Unavailable Ziyad SANDS MD Unavailable [...] Unavailable Unavailable Ziyad SANDS MD Unavailable Unavailable Zyiad SANDS MD Unavailable Unavailable Ziyad SANDS MD [...] Unavailable Unavailable Ziyad SANDS MD Unavailable Unavailable Ronal Weber MD Unavailable Unavailable Ronal Weber MD Unavailable Unavailable Ronal Weber MD Unavailable Unavailable Ronal Weber MD Unavailable Unavailable Ronal Weber MD Unavailable Unavailable Ronal Weber MD Unavailable Unavailable Ronal Weber MD Unavailable Unavailable Ronal Weber MD Unavailable Unavailable Ronal Weber MD Unavailable Unavailable Ronal Weber MD Unavailable Unavailable Ronal Weber MD Unavailable Unavailable Ronal Weber MD Unavailable Unavailable Ronal Weber MD Unavailable Unavailable Ronal Weber MD Unavailable Unavailable Ronal Weber MD Unavailable Unavailable Ronal Weber MD Unavailable Unavailable Ronal Weber MD Unavailable Unavailable Ronal Weber MD Unavailable Unavailable Ronal Weber MD Unavailable Unavailable Ronal Weber MD Unavailable Unavailable Ronal Weber MD Unavailable Unavailable Ronal Weber MD Unavailable Unavailable Ronal Weber MD Unavailable Unavailable Ronal Weber MD Unavailable Unavailable Ronal Weber MD Unavailable Unavailable Re-disclosure Warning The records [...] is protected by Article 27-F of the [facility] Public Health law. If you continue you may have access to information: Regarding HIV / AIDS; Provided by facilities licensed or operated by the [facility] Office of Mental Health; or Provided by the [facility] Office for People With Developmental Disabilities. If such information is present, then the following [facility] mandated warning applies: This information has been [...] law may result in a fine or fpc sentence or both. A general authorization for the release of medical or other information is NOT sufficient authorization for further disc losure. Allergies and Adverse Reactions Type Description Substance Reaction Status Data Source(s ) Propensity to adverse reactions NO KNOWN ALLERGIES NO KNOWN ALLERGIES [facility] Propensity to adverse reactions ALLERGIES NOT ON FILE ALLERGIES NOT O N FILE [facility] Family History Family Member Name Family Member Gender Family Member Status Date o f Status Description Data Source(s) Unknown Male Diagnosis 08/22/2018 12:00:00 AM EST [facility] ([facility]) Unknown Female Problem [facility] ([facility], ) Unknown Female Encounters Encounter Providers Location Date Indications Data Source(s ) Outpatient Attender: SUNITA Arnold Office 03/2021 10:30:00 AM EST [facility] ([facility] Outpatient Attender: Aleena Weber MD 1 11/19/2020 10:59:26 AM EST - 09/18/2021 01:09:16 PM EST [facility] ([facility]) Outpatient Attender: GAVIOTA Holcomb/Mariama/Cecil/Re indl 08/12/2021 02:00:00 PM EDT [facility] ([facility] Outpatient Attender: SUNITA Arnold Office 03:20:00 PM EDT [facility] ([facility] Outpatient Attender: SUNITA Arnold Office 10:00:00 AM EDT [facility] ([facility] Outpatient Attender: SUNITA Arnold Office 10:00:00 AM EDT [facility] ([facility] Outpatient Attender: Karthik Kumar 11:30:38 AM EST - 11/17/2020 12:08:31 PM EST Neck Pain [facility] Neck Pain Patient discharged. Outpatient 11/17/2020 10:44:47 AM EST - 021 11:59:00 PM EST [facility] Patient discharged. Outpatient Attender: Karthik Kumar 0 12:40:51 PM EST - 10/11/2020 01:46:54 PM EST Neck Pain [facility] Neck Pain Patient discharged. Outpatient Attender: SUNITA Arnold Office 10:15:00 AM EST [facility] ([facility] 09/20/2020 08:37:00 AM EST [facility] Outpatient Attender: SUNITA Arnold Office 11/2019 10:15:00 AM EST [facility] ([facility] Immunizations Vaccine Date Status Description Data Source(s) New in 2012. IIV4 07/06/2021 09:22:00 AM EDT completed [facility] ([facility] Medications Medication Brand Name Start Date Product Form Dose Route Admi nistrative Instructions Pharmacy Instructions Status Indications Reaction Description Data Source(s) Acetaminophen 325 MG / Hydrocodone Bitartrate 5 MG Ora l Tablet 5-325 mg HYDROCODONE/ACETAMINOPHEN 09/14/2021 12:00:00 AM EST tablet 60 TAKE ONE TABLET BY MOUTH TWICE A DAY NEEDED. MAX OF 2 TABS/DAY TAKE ONE TABLET BY MOUTH TWICE A DAY NEEDED. MAX OF 2 TABS/DAY SOLD: 09/14/2021 [facility] 145 mg 09/12/2021 12:00:00 AM EST tablet 30 TAKE ONE TABLET BY MOUTH EVERY DAY TAKE ONE TABLET BY MOUTH EVERY DAY SOLD: 09/14/2021 [facility] 40 mg 09/06/2021 12:00:00 AM EST capsule,delayed release (DR/EC) 90 TAKE ONE CAPSULE BY MOUTH EVERY DAY TAKE ONE CAPSULE BY MOUTH EVERY DAY SOLD: 09/10/2021 [facility] Amoxicillin 875 MG / Clavulanate 125 MG Oral Tablet 87 5-125 mg AMOXICILLIN/POTASSIUM CLAV 08/10/2021 12:00:00 AM EDT tablet 20 TAKE ONE TABLET BY MOUTH TWICE A DAY FOR 10 DAYS TAKE ONE TABLET BY MOUTH TWICE A DAY FOR 10 DAYS SOLD: 08/12/2021 [facility] Acetaminophen 325 MG / Hydrocodone Bitartrate 5 MG Ora l Tablet 5-325 mg HYDROCODONE/ACETAMINOPHEN 08/10/2021 12:00:00 AM EDT tablet 60 TAKE ONE TABLET BY MOUTH TWICE A DAY NEEDED MAXIMUM DAILY DOSE = 2 TABLETS TAKE ONE TABLET BY MOUTH TWICE A DAY NEEDED MAXIMUM DAILY DOSE = 2 TABLETS SOLD: 08/12/2021 [facility] Amoxicillin 875 MG / Clavulanate 125 MG Oral Tablet [Augment in] Augmentin 08/08/2021 12:00:00 AM EDT ORAL active [facility] ([facility] Amoxicillin 875 MG / Clavulanate 125 MG Oral Tablet 87 5-125 mg AMOXICILLIN/POTASSIUM CLAV 08/04/2021 12:00:00 AM EDT tablet 20 TAKE ONE TABLET BY MOUTH TWICE A DAY FOR 10 DAYS TAKE ONE TABLET BY MOUTH TWICE A DAY FOR 10 DAYS SOLD: 08/04/2021 [facility] Acetaminophen 325 MG / [...] HCL 07/04/2021 12:00:00 AM EDT active MEDENT ([facility] 50 mg 07/01/2021 12:00:00 AM EDT tablet 90 TAKE 1 TABLET BY MOUTH ONCE DAILY MAXIMUM DAILY DOSE = 1 TAKE 1 TABLET BY MOUTH ONCE DAILY MAXIMU M DAILY DOSE = 1 SOLD: 07/09/2021 [facility] Acetaminophen 325 MG / Hydrocodone [...] Hydrocodone Bitartrate 5 MG Oral Tabl et [Ridge] Ridge 06/08/2021 12:00:00 AM EDT ORAL active [facility] ([facility] Acetaminophen 325 MG / [...] AY. MAXIMUM DAILY DOSE = 3 SOLD: 09/10/2021 [facility] 20 mg 04/05/2021 12:00:00 [...] AY. MAXIMUM DAILY DOSE = 3 SOLD: 08/12/2021 [facility] 20 mg 04/05/2021 12:00:00 [...] ONE TABLET BY MOUTH EVERY DAY SOLD: 08/12/2021 [facility] 145 mg 03/04/2021 12:00:00 AM [...] Oral Capsule Omeprazole 02/07/2021 12:00:00 AM EDT active MED[facility] ([facility] 40 mg 02/07/2021 12:00:00 AM [...] prior to procedure, may repeat 1 time. [facility] Take 1 tab po q 1/2hr prior to procedure , may repeat 1 time. Diazepam 5 MG Oral Tablet diazePAM (VALIUM) 5 mg table t diazePAM (VALIUM) 5 mg tablet 11/10/2020 12:00:00 AM EST completed Take 1 tab po q 1/2hr prior to procedure, may repeat 1 time. [facility] Take 1 tab po q 1/2hr prior to procedure , may repeat 1 time. 5-325 mg 11/10/2020 12:00:00 AM EST tablet 60 TAKE ONE TABLET BY MOUTH EVERY 8 HOURS NEEDED MAXIMUM DAILY DOSE = 2 TABLETS TAKE ONE TABLET BY MOUTH EVERY 8 HOURS NEEDED MAXIMUM DAILY DOSE = 2 TABLETS SOLD: 11/10/2020 [facility] Diazepam 5 MG Oral Tablet diazePAM (VALIUM) 5 mg table t diazePAM (VALIUM) 5 mg tablet 11/10/2020 12:00:00 AM EST completed Take 1 tab po q 1/2hr prior to procedure, may repeat 1 time. [facility] Take 1 tab po q 1/2hr prior to procedure , may repeat 1 time. 5 mg 11/06/2020 12:00:00 AM EST tablet 2 TAKE 1 TABLET BY MOUTH 1/2 HOUR BEFORE MRI, MAY REPEAT ONE DOSE MAXIMUM DAILY DOSE = 2 TABLETS TAKE 1 TABLET BY MOUTH 1/2 HOUR BEFORE MRI, MAY REPEAT ONE DOSE MAXIMUM DAILY DOSE = 2 TABLETS SOLD: 11/07/2020 [facility] Diazepam 5 MG Oral Tablet diazePAM (VALIUM) 5 mg table t diazePAM (VALIUM) 5 mg tablet 11/05/2020 12:00:00 AM EST compl eted Cervical stenosis of spinal canal Take one pill 1/2 before mri, may repeat x 1 [facility] Cervical stenosis of spinal canal Take one pill 1/2 before mri, may repeat x 1 Lorazepam 0.5 MG Oral Tablet Lorazepam 11/05/2020 12:00:00 AM EST ORAL active [facility] ([facility] Diazepam 5 MG Oral Tablet diazePAM (VALIUM) 5 mg table t diazePAM (VALIUM) 5 mg tablet 11/05/2020 12:00:00 AM EST compl eted Cervical stenosis of spinal canal Take one pill 1/2 before mri, may repeat x 1 [facility] Cervical stenosis of spinal canal Take one pill 1/2 before mri, may repeat x 1 Diazepam 5 MG Oral Tablet diazePAM (VALIUM) 5 mg table t diazePAM (VALIUM) 5 mg tablet 11/05/2020 12:00:00 AM EST compl eted Cervical stenosis of spinal canal Take one pill 1/2 before mri, may repeat x 1 [facility] Cervical stenosis of spinal canal Take [...] MOUTH EVERY DAY AT BEDTIME SOLD: 04/08/2021 [facility] 50 mg 10/05/2020 12:00:00 AM EST [...] benzonatate 100 MG Oral Capsule [Luna Fitzpatrick] Tessalon Casimiro lares 08/16/2020 12:00:00 AM EST ORAL active M EDENT ([facility] Zithromax Z-Delonte Zithromax Z-Delonte 08/16/2020 12:00:00 AM EST ORAL completed [facility] ([facility] 5-325 mg 08/07/2020 12:00:00 AM EDT tablet 60 TAKE 1 TABLET BY MOUTH EVERY 8 HOURS NEEDED MAXIMUM DAILY DOSE = 2 TABLETS TAKE 1 TABLET BY MOUTH EVERY 8 HOURS NEEDED MAXIMUM DAILY DOSE = 2 TABLETS SOLD: 08/07/2020 [facility] 0.4 mg 06/24/2020 12:00:00 AM [...] MOUTH AT BEDTIME SOLD: 01/04/2021 [facility] 20 mg 05/03/2020 [...] DAILY DOSE = 3 TABLETS SOLD: 11/07/2020 [facility] 145 mg 02/17/2020 12:00:00 AM EDT tablet 30 TAKE ONE TABLET BY MOUTH EVERY DAY TAKE ONE TABLET BY MOUTH EVERY DAY SOLD: 08/07/2020 [facility] Citalopram 40 MG Oral Tablet CITALOPRAM HYDROBROMIDE 12/30/2019 12:00:00 AM EDT tablet 90 TAKE ONE TABLET BY MOUTH EVERY D AY TAKE ONE TABLET BY MOUTH EVERY DAY SOLD: 10/06/2020 [facility] Insurance Providers Payer name Policy type / Coverage type Policy ID Covered green party ID Covered green party's relationship to parkinson Policy Parkinson Plan Information Pilot Instructor () Workers Compensation [id number] Self BLUE CROSS GUILLEN PLAN [id number] SP [id number] O BLUE [id number] SP [id number] BLUE CHOICE OPTIONS [id number] [facility] Community Plan Commercial [id number] Self [facility] I [id number] Self [id number] Medicaid [facility] Part B [id number] Self MEDICARE [id number] SP [id number] A MEDICARE MEDICARE [id number] SP [id number] MEDICARE [id number] SP [id number] A MEDICAID [facility] Medicare Medicare Part B [id number] Self [id number] [facility] MEDICARE PART B C [id number] S [id number] MEDICARE [id number] SP [id number] A MEDICARE [id number] SP [id number] A MEDICAID UNAVAILABLE UNAVAILA BLE [facility](MCAID) O [id number] S [id number] MEDICARE [id number] SP [id number] SELF PAY [id number] SP [id number] [employer] COMMUNITY PLAN MCDO [id number] SP [id number] [facility] COMMUNITY PLAN MCDO [id number] SP [id number] MEDICAID 3 [id number] 1 [id number] SELFPAY 5 UNAVAILABLE 1 UNAVAILA BLE BLUE CHOICE OPTN FHP O [id number] S [id number] EXCELLUS BCBS P [id number] S [id number] [place] [id number] SP [id number] M O UNAVAILABLE UNAVAILA BLE MEDICARE C [id number] S [id number] NGS MEDICARE NEW HAMPHIR O [id number] S [id number] MEDICAID [id number] SP [id number] MEDICAID M [id number] S [id number] [facility] [id number] Self [id number] [facility] [id number] Self [id number] [facility] [id number] Self [id number] Medicare [facility] Medicare Primary [id number] Self [id number] MEDICARE C [id number] S [id number] A [facility] PART B C [id number] S [id number] Medicare [facility] Medicare Primary [id number] Self [place] Medigap Part B [id number] [facility] Health Maintenance Organization (HMO) [id number] Self Problems, Conditions, and Diagnoses Code Display Name Description Problem Type Effective Dates Data Source(s) M47.816 Spondylosis without myelopathy or radicu lopathy, lumbar region Spondylosis without myelopathy or radiculopathy, lumbar region Diagnosis 11/17/2020 11:30:38 AM EST [facility] M41.20 Other idiopathic scoliosis, site unspeci fied Other idiopathic scoliosis, site unspecified Diagnosis 11/17/2020 11:30:38 AM EST [facility] Z98.1 Arthrodesis status Arthrodesis status Diagnosis 12/2020 11:30:38 AM EST [facility] Neck Pain Neck Pain Diagnosis 11/17/2020 11:30:38 AM ES T [facility] 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, thoracic region Spondylosis without myelopathy or radiculopathy, thoracic region Diagnosis 11/17/2020 10:44:47 AM EST [facility] M48.02 Spinal stenosis, cervical region Spinal stenosis , cervical region Diagnosis 11/17/2020 10:44:47 AM EST [facility] M21.371 Foot drop, right foot Foot drop, right foot Diagnosis 10/11/2020 12:40:51 PM EST [facility] Surgeries/Procedures Procedure Description Date Indications Data Source(s) OFFICE OUTPATIENT VISIT 25 MINUTES 09/19/2021 12:00:00 AM EST [facility] ([facility] OFFICE OUTPATIENT NEW 45 MINUTES 08/12/2021 12:00:00 A M EDT [facility] ([facility], ) OFFICE OUTPATIENT VISIT 25 MINUTES 08/08/2021 12:00:00 AM EDT [facility] ([facility] OFFICE OUTPATIENT VISIT 25 MINUTES 08/01/2021 12:00:00 AM EDT [facility] ([facility] OFFICE OUTPATIENT VISIT 25 MINUTES 02/07/2021 12:00:00 AM EDT [facility] ([facility] XR SCOLIOSIS SERIES XR SCOLIOSIS SERIES 11/17/2020 11:24:12 AM EST [facility] GENERAL SUPPLY GENERAL SUPPLY 10/11/2020 12:59:11 PM EST [facility] Results ID Date Data Source [id number] 09/19/2021 11:41:00 AM EST [facility] ([facility] Name Value Range Interpretation Code Description Data Rosa rce(s) Supporting Document(s) Amylase [Enzymatic activity/volume] in Serum or Plasma 51 U/L 31- 110 [facility] ([facility] Lipoprotein lipase [Enzymatic activity/volume] in Serum or Plasm a 36 U/L 13-78 [facility] ([facility] ID Date Data Source [id number] 09/19/2021 11:41:00 AM EST [facility] ([facility] Name Value Range Interpretation Code Description Data Rosa rce(s) Supporting Document(s) WBC 6.6 10E3/uL 4.1-10.9 [facility] ([facility] NORMAL RANGES Age WBC RBC [...] HCT IS 5% LESS SOURCE FOR DATA: [employer] DYN 1800 OPERATION MANUAL( AUTOMATED BLOOD COUNTS [...] Normal 80 and above >32 mL/min Normal HGB 14.1 g/dL 12.0-18.0 [facility] ([facility] NORMAL RANGES Age WBC RBC HGB [...] HCT IS 5% LESS SOURCE FOR DATA: [employer] 1800 OPERATION MANUAL( AUTOMATED BLOOD COUNTS AND [...] Normal 80 and above >32 mL/min Normal HCT 42.0 % 37.0-51.0 [facility] ([facility] NORMAL RANGES Age WBC [...] Normal 80 and above >32 mL/min Normal RBC 4.32 10E6/uL 4.20-6.30 [facility] ([facility] NORMAL RANGES Age WBC RBC [...] HCT IS 5% LESS SOURCE FOR DATA: [employer] 1800 OPERATION MANUAL( AUTOMATED BLOOD COUNTS AND [...] Normal 80 and above >32 mL/min Normal MCV 97.2 fL 80.0-97.0 Above high normal [facility] ([facility] NORMAL RANGES Age WBC RBC HGB HCT MCV PLT Adult M 4.1-10.9 4.20-6.30 12.0-18.0 37.0-51.0 80 140-440 Adult F 4.1-10.9 4.04-5.48 12.0-18.0 37.0-51.0 80- 140-440 0 -1 Yr 5.0-20.0 3.9-5.9 15-18 [...] HCT IS 5% LESS SOURCE FOR DATA: [employer] 1800 OPERATION MANUAL( AUTOMATED BLOOD COUNTS AND [...] Normal 80 and above >32 mL/min Normal MCH 32.6 pg 26.0-32.0 Above high normal [facility] NORMAL RANGES Age [...] HCT IS 5% LESS SOURCE FOR DATA: [employer] 1800 OPERATION MANUAL( AUTOMATED BLOOD COUNTS AND [...] Normal 80 and above >32 mL/min Normal MCHC 33.6 g/dL 31.0-36.0 [facility] ([facility] NORMAL RANGES [...] HCT IS 5% LESS SOURCE FOR DATA: [employer] 1800 OPERATION MANUAL( AUTOMATED BLOOD COUNTS AND [...] Normal 80 and above >32 mL/min Normal PLT 283 10E3/uL 140-440 [facility] ([facility] NORMAL RANGES Age WBC [...] HCT IS 5% LESS SOURCE FOR DATA: [employer] 1800 OPERATION MANUAL( AUTOMATED BLOOD COUNTS AND [...] Normal 80 and above >32 mL/min Normal RDW-CV 11.8 % 11.5-14.5 [facility] ([facility] NORMAL [...] HCT IS 5% LESS SOURCE FOR DATA: [employer] 1800 OPERATION MANUAL( AUTOMATED BLOOD COUNTS AND [...] Normal 80 and above >32 mL/min Normal Lym% 23.7 % 10.0-58.5 [facility] ([facility] NORMAL RANGES [...] HCT IS 5% LESS SOURCE FOR DATA: [employer] 1800 OPERATION MANUAL( AUTOMATED BLOOD COUNTS AND [...] Normal 80 and above >32 mL/min Normal MXD% 8.8 % 0.1-24.0 [facility] ([facility] NORMAL RANGES Age WBC [...] HCT IS 5% LESS SOURCE FOR DATA: [employer] 1800 OPERATION MANUAL( AUTOMATED BLOOD COUNTS AND [...] Normal 80 and above >32 mL/min Normal Neut% 67.5 % 37.0-92.0 [facility] ([facility] NORMAL RANGES Age WBC [...] HCT IS 5% LESS SOURCE FOR DATA: [employer] 1800 OPERATION MANUAL( AUTOMATED BLOOD COUNTS AND [...] Normal 80 and above >32 mL/min Normal Lym# 1.6 10E3/uL 0.6-4.1 2d2c ([facility] NORMAL RANGES Age WBC [...] Normal 80 and above >32 mL/min Normal Neut# 4.4 % 2.0-7.8 [facility] ([facility] NORMAL RANGES Age WBC [...] HCT IS 5% LESS SOURCE FOR DATA: [employer] 1800 OPERATION MANUAL( AUTOMATED BLOOD COUNTS AND [...] Normal 80 and above >32 mL/min Normal MPV 9.6 fL 9.0-13.0 [facility] ([facility] NORMAL [...] HCT IS 5% LESS SOURCE FOR DATA: [employer] 1800 OPERATION MANUAL( AUTOMATED BLOOD COUNTS AND [...] Normal 80 and above >32 mL/min Normal MXD# 0.6 10E3/uL 0.0-1.8 [facility] ([facility] NORMAL RANGES Age WBC [...] HCT IS 5% LESS SOURCE FOR DATA: [employer] 1800 OPERATION MANUAL( AUTOMATED BLOOD COUNTS AND [...] >32 mL/min Normal ID Date Data Source [id number] 09/19/2021 11:41:00 AM EST [facility] ([facility] Name Value Range Interpretation Code Description Data Rosa rce(s) Supporting Document(s) Glu 116 mg/dL 70-110 Above high normal [facility] ([facility] NORMAL RANGES Age [...] HCT IS 5% LESS SOURCE FOR DATA: [employer] 1800 OPERATION MANUAL( AUTOMATED BLOOD COUNTS AND [...] 80 and above >32 mL/min Normal Creat 0.9 mg/dL 0.7-1.2 [facility] ([facility] NORMAL [...] HCT IS 5% LESS SOURCE FOR DATA: [employer] 1800 OPERATION MANUAL( AUTOMATED BLOOD COUNTS AND [...] 80 and above >32 mL/min Normal BUN 16 mg/dL 8-23 [facility] ([facility] NORMAL RANGES Age WBC [...] HCT IS 5% LESS SOURCE FOR DATA: [employer] 1800 OPERATION MANUAL( AUTOMATED BLOOD COUNTS AND [...] 80 and above >32 mL/min Normal K 4.3 mmol/L 3.5-5.1 [facility] ([facility] NORMAL RANGES Age WBC RBC HGB [...] HCT IS 5% LESS SOURCE FOR DATA: [employer] 1800 OPERATION MANUAL( AUTOMATED BLOOD COUNTS AND [...] 80 and above >32 mL/min Normal Na 137 mmol/L 136-145 [facility] ([facility] NORMAL RANGES Age WBC RBC [...] and above >32 mL/min Normal BUN/Creatinine Ratio 18.2 [facility] 2d2c ([facility] NORMAL RANGES Age [...] HCT IS 5% LESS SOURCE FOR DATA: [employer] 1800 OPERATION MANUAL( AUTOMATED BLOOD COUNTS AND [...] 80 and above >32 mL/min Normal CA 9.8 mg/dL 8.6-10.2 [facility] ([facility] NORMAL RANGES Age [...] HCT IS 5% LESS SOURCE FOR DATA: [employer] 1800 OPERATION MANUAL( AUTOMATED BLOOD COUNTS AND [...] 80 and above >32 mL/min Normal Co2 19.9 mmol/L 22.0-29.0 Below low normal [facility] ([facility] NORMAL [...] HCT IS 5% LESS SOURCE FOR DATA: [employer] 1800 OPERATION MANUAL( AUTOMATED BLOOD COUNTS AND [...] 80 and above >32 mL/min Normal CL 100.2 mmol/L 98.0-107.0 [facility] ([facility] NORMAL RANGES Age WBC RBC [...] HCT IS 5% LESS SOURCE FOR DATA: [employer] 1800 OPERATION MANUAL( AUTOMATED BLOOD COUNTS AND [...] 80 and above >32 mL/min Normal TP 7.3 g/dL 6.6-8.7 [facility] ([facility] [...] HCT IS 5% LESS SOURCE FOR DATA: [employer] 1800 OPERATION MANUAL( AUTOMATED BLOOD COUNTS AND [...] 80 and above >32 mL/min Normal Alb 4.8 g/dL 3.5-5.2 [facility] ([facility] [...] HCT IS 5% LESS SOURCE FOR DATA: [employer] 1800 OPERATION MANUAL( AUTOMATED BLOOD COUNTS AND [...] 80 and above >32 mL/min Normal Alp 87.9 U/L 40-129 [facility] ([facility] NORMAL [...] HCT IS 5% LESS SOURCE FOR DATA: [employer] 1800 OPERATION MANUAL( AUTOMATED BLOOD COUNTS AND [...] and above >32 mL/min Normal A/G Ratio 2.0 [facility] ([facility] NORMAL RANGES Age WBC [...] HCT IS 5% LESS SOURCE FOR DATA: [employer] 1800 OPERATION MANUAL( AUTOMATED BLOOD COUNTS AND [...] 80 and above >32 mL/min Normal Globulin 2.4 Calc [facility] ([facility] NORMAL RANGES Age WBC [...] HCT IS 5% LESS SOURCE FOR DATA: [employer] 1800 OPERATION MANUAL( AUTOMATED BLOOD COUNTS AND [...] and above >32 mL/min Normal Ast (Sgot) 32 U/L 0-40 2d2c ([facility] NORMAL RANGES Age WBC RBC [...] 80 and above >32 mL/min Normal Tbili 0.54 mg/dL 0.0-1.2 2d2c ([facility] NORMAL RANGES Age WBC RBC [...] HCT IS 5% LESS SOURCE FOR DATA: [employer] 1800 OPERATION MANUAL( AUTOMATED BLOOD COUNTS AND [...] and above >32 mL/min Normal Alt (SGPT) 25 U/L 0-41 [facility] NORMAL RANGES Age WBC RBC [...] HCT IS 5% LESS SOURCE FOR DATA: [employer] 1800 OPERATION MANUAL( AUTOMATED BLOOD COUNTS AND [...] and above >32 mL/min Normal Anion Gap 21 mmol/L [facility] ([facility] NORMAL RANGES Age [...] HCT IS 5% LESS SOURCE FOR DATA: [employer] 1800 OPERATION MANUAL( AUTOMATED BLOOD COUNTS AND [...] 80 and above >32 mL/min Normal Osmolality-Calculated 276.2 [facility]c [facility] ([facility] NORMAL [...] HCT IS 5% LESS SOURCE FOR DATA: [employer] 1800 OPERATION MANUAL( AUTOMATED BLOOD COUNTS AND [...] 80 and above >32 mL/min Normal eGFR 106 # [facility] ( [facility] [...] HCT IS 5% LESS SOURCE FOR DATA: [employer] 1800 OPERATION MANUAL( AUTOMATED BLOOD COUNTS AND [...] and above >32 mL/min Normal eGFR Non-Afr. Swiss 92 # [facility] ([facility] NORMAL [...] HCT IS 5% LESS SOURCE FOR DATA: [employer] 1800 OPERATION MANUAL( AUTOMATED BLOOD COUNTS AND [...] >32 mL/min Normal ID Date Data Source [id number] 08/03/2021 11:04:00 PM EDT [facility] Name Value Range Interpretation Code Description Data Rosa rce(s) Supporting Document(s) SARS coronavirus 2 RNA [Presence] in Res piratory specimen by JAYA with probe detection NEGATIVE [place]SDOH This lab was ordered by [facility] a nd reported by [facility]. ID Date Data Source [id number] 08/01/2021 10:13:00 AM EDT [facility] ([facility] Name Value Range Interpretation Code Description Data Rosa rce(s) Supporting Document(s) WBC 5.9 10E3/uL 4.1-10.9 [facility] ([facility] NORMAL RANGES Age WBC [...] 2-19 YEARS EXCLUSIVE. RBC 4.20 10E6/uL 4.20-6.30 [facility] ([facility] NORMAL RANGES Age [...] HCT IS 5% LESS SOURCE FOR DATA: [employer] 1800 OPERATION MANUAL( AUTOMATED BLOOD COUNTS AND [...] HCT IS 5% LESS SOURCE FOR DATA: [employer] 1800 OPERATION MANUAL( AUTOMATED BLOOD COUNTS AND [...] 2-19 YEARS EXCLUSIVE. HGB 13.4 g/dL 12.0-18.0 [facility] ([facility] NORMAL RANGES [...] HCT IS 5% LESS SOURCE FOR DATA: [employer] 1800 OPERATION MANUAL( AUTOMATED BLOOD COUNTS AND [...] 2-19 YEARS EXCLUSIVE. MCV 95.5 fL 80.0-97.0 [facility] ([facility] NORMAL [...] HCT IS 5% LESS SOURCE FOR DATA: [employer] 1800 OPERATION MANUAL( AUTOMATED BLOOD COUNTS AND [...] YEARS EXCLUSIVE. MCH 31.9 pg 26.0-32.0 [facility] ([facility] NORMAL RANGES Age WBC [...] HCT IS 5% LESS SOURCE FOR DATA: [employer] 1800 OPERATION MANUAL( AUTOMATED BLOOD COUNTS AND [...] 2-19 YEARS EXCLUSIVE. RDW-CV 12.2 % 11.5-14.5 [facility] ([facility] NORMAL [...] HCT IS 5% LESS SOURCE FOR DATA: [employer] 1800 OPERATION MANUAL( AUTOMATED BLOOD COUNTS AND [...] 2-19 YEARS EXCLUSIVE. PLT 247 10E3/uL 140-440 [facility] ([facility] NORMAL RANGES Age WBC [...] HCT IS 5% LESS SOURCE FOR DATA: [employer] 1800 OPERATION MANUAL( AUTOMATED BLOOD COUNTS AND [...] 2-19 YEARS EXCLUSIVE. MCHC 33.4 g/dL 31.0-36.0 [facility] ([facility] NORMAL [...] HCT IS 5% LESS SOURCE FOR DATA: [employer] 1800 OPERATION MANUAL( AUTOMATED BLOOD COUNTS AND [...] 2-19 YEARS EXCLUSIVE. MXD% 6.9 % 0.1-24.0 [facility] ([facility] NORMAL RANGES [...] HCT IS 5% LESS SOURCE FOR DATA: [employer] 1800 OPERATION MANUAL( AUTOMATED BLOOD COUNTS AND [...] 2-19 YEARS EXCLUSIVE. Neut% 65.6 % 37.0-92.0 [facility] ([facility] NORMAL [...] HCT IS 5% LESS SOURCE FOR DATA: [employer] 1800 OPERATION MANUAL( AUTOMATED BLOOD COUNTS AND [...] 2-19 YEARS EXCLUSIVE. Lym% 27.5 % 10.0-58.5 [facility] ([facility] NORMAL RANGES Age [...] HCT IS 5% LESS SOURCE FOR DATA: [employer] 1800 OPERATION MANUAL( AUTOMATED BLOOD COUNTS AND [...] 2-19 YEARS EXCLUSIVE. Lym# 1.6 10E3/uL 0.6-4.1 [facility] ([facility] NORMAL RANGES Age WBC [...] HCT IS 5% LESS SOURCE FOR DATA: [employer] 1800 OPERATION MANUAL( AUTOMATED BLOOD COUNTS AND [...] 2-19 YEARS EXCLUSIVE. Neut# 3.9 % 2.0-7.8 [facility] ([facility] NORMAL [...] HCT IS 5% LESS SOURCE FOR DATA: [employer] 1800 OPERATION MANUAL( AUTOMATED BLOOD COUNTS AND [...] 2-19 YEARS EXCLUSIVE. MXD# 0.4 10E3/uL 0.0-1.8 [facility] ([facility] NORMAL RANGES Age WBC RBC HGB [...] HCT IS 5% LESS SOURCE FOR DATA: [employer] 1800 OPERATION MANUAL( AUTOMATED BLOOD COUNTS AND [...] 2-19 YEARS EXCLUSIVE. MPV 9.4 fL 9.0-13.0 [facility] ([facility] NORMAL [...] HCT IS 5% LESS SOURCE FOR DATA: [employer] 1800 OPERATION MANUAL( AUTOMATED BLOOD COUNTS AND [...] 2-19 YEARS EXCLUSIVE. ID Date Data Source [id number] 08/01/2021 10:13:00 AM EDT [facility] ([facility] Name Value Range [...] HCT IS 5% LESS SOURCE FOR DATA: [employer] 1800 OPERATION MANUAL( AUTOMATED BLOOD COUNTS AND [...] HCT IS 5% LESS SOURCE FOR DATA: [employer] 1800 OPERATION MANUAL( AUTOMATED BLOOD COUNTS AND [...] HCT IS 5% LESS SOURCE FOR DATA: [employer] 1800 OPERATION MANUAL( AUTOMATED BLOOD COUNTS AND [...] 2-19 YEARS EXCLUSIVE. LDL_C 127 Calc 75-129 [facility] ([facility] NORMAL RANGES Age WBC [...] HCT IS 5% LESS SOURCE FOR DATA: [employer] 1800 OPERATION MANUAL( AUTOMATED BLOOD COUNTS AND [...] 2-19 YEARS EXCLUSIVE. Cho/HDL Ratio 3.6 [facility]c 2d2c ([facility] NORMAL RANGES Age WBC RBC HGB [...] HCT IS 5% LESS SOURCE FOR DATA: [employer] 1800 OPERATION MANUAL( AUTOMATED BLOOD COUNTS AND [...] 2-19 YEARS EXCLUSIVE. ID Date Data Source [id number] 08/01/2021 10:13:00 AM EDT [facility] ([facility] Name Value Range Interpretation Code Description Data Rosa rce(s) Supporting Document(s) Glu 103 mg/dL 70-110 [facility] ([facility] NORMAL [...] HCT IS 5% LESS SOURCE FOR DATA: [employer] 1800 OPERATION MANUAL( AUTOMATED BLOOD COUNTS AND [...] 2-19 YEARS EXCLUSIVE. BUN 10 mg/dL 8-23 [facility] ([facility] NORMAL RANGES Age WBC [...] YEARS EXCLUSIVE. Creat 0.8 mg/dL 0.7-1.2 [facility] ([facility] NORMAL [...] HCT IS 5% LESS SOURCE FOR DATA: [employer] 1800 OPERATION MANUAL( AUTOMATED BLOOD COUNTS AND [...] 2-19 YEARS EXCLUSIVE. BUN/Creatinine Ratio 12.9 CALC [facility] ([facility] NORMAL RANGES Age [...] HCT IS 5% LESS SOURCE FOR DATA: [employer] 1800 OPERATION MANUAL( AUTOMATED BLOOD COUNTS AND [...] 2-19 YEARS EXCLUSIVE. Na 139 mmol/L 136-145 [facility] NORMAL RANGES Age WBC RBC [...] 2-19 YEARS EXCLUSIVE. CL 104.0 mmol/L 98.0-107.0 [facility] ([facility] NORMAL RANGES Age WBC RBC [...] HCT IS 5% LESS SOURCE FOR DATA: [employer] 1800 OPERATION MANUAL( AUTOMATED BLOOD COUNTS AND [...] YEARS EXCLUSIVE. K 4.3 mmol/L 3.5-5.1 [facility] ([facility] NORMAL [...] HCT IS 5% LESS SOURCE FOR DATA: [employer] 1800 OPERATION MANUAL( AUTOMATED BLOOD COUNTS AND [...] Co2 19.0 mmol/L 22.0-29.0 Below low normal [facility] ([facility] NORMAL [...] HCT IS 5% LESS SOURCE FOR DATA: [employer] 1800 OPERATION MANUAL( AUTOMATED BLOOD COUNTS [...] 2-19 YEARS EXCLUSIVE. TP 6.9 g/dL 6.6-8.7 [facility] ([facility] NORMAL RANGES [...] HCT IS 5% LESS SOURCE FOR DATA: [employer] 1800 OPERATION MANUAL( AUTOMATED BLOOD COUNTS AND [...] 2-19 YEARS EXCLUSIVE. CA 8.9 mg/dL 8.6-10.2 [facility] ([facility] NORMAL [...] HCT IS 5% LESS SOURCE FOR DATA: [employer] 1800 OPERATION MANUAL( AUTOMATED BLOOD COUNTS AND [...] 2-19 YEARS EXCLUSIVE. Alb 4.3 g/dL 3.5-5.2 [facility] ([facility] NORMAL RANGES [...] HCT IS 5% LESS SOURCE FOR DATA: [employer] 1800 OPERATION MANUAL( AUTOMATED BLOOD COUNTS AND [...] HCT IS 5% LESS SOURCE FOR DATA: [employer] 1800 OPERATION MANUAL( AUTOMATED BLOOD COUNTS AND [...] 2-19 YEARS EXCLUSIVE. A/G Ratio 1.7 CALC [facility] ([facility] NORMAL RANGES Age WBC [...] HCT IS 5% LESS SOURCE FOR DATA: [employer] 1800 OPERATION MANUAL( AUTOMATED BLOOD COUNTS AND [...] HCT IS 5% LESS SOURCE FOR DATA: [employer] 1800 OPERATION MANUAL( AUTOMATED BLOOD COUNTS [...] 2-19 YEARS EXCLUSIVE. Alp 116.0 U/L 40-129 [facility] ([facility] NORMAL [...] HCT IS 5% LESS SOURCE FOR DATA: [employer] 1800 OPERATION MANUAL( AUTOMATED BLOOD COUNTS AND [...] (Sgot) 54 U/L 0-40 Above high normal [facility] ([facility] NORMAL RANGES Age [...] HCT IS 5% LESS SOURCE FOR DATA: [employer] 1800 OPERATION MANUAL( AUTOMATED BLOOD COUNTS AND [...] HCT IS 5% LESS SOURCE FOR DATA: [employer] 1800 OPERATION MANUAL( AUTOMATED BLOOD COUNTS AND [...] HCT IS 5% LESS SOURCE FOR DATA: [employer] 1800 OPERATION MANUAL( AUTOMATED BLOOD COUNTS AND [...] 2-19 YEARS EXCLUSIVE. Anion Gap 20 mmol/L [facility] ([facility] NORMAL RANGES Age WBC [...] HCT IS 5% LESS SOURCE FOR DATA: [employer] 1800 OPERATION MANUAL( AUTOMATED BLOOD COUNTS AND [...] INDIVIDUALA AGED 2-19 YEARS EXCLUSIVE. eGFR Non-Afr. Swiss 96 # [facility] ([facility] [...] HCT IS 5% LESS SOURCE FOR DATA: [employer] 1800 OPERATION MANUAL( AUTOMATED BLOOD COUNTS [...] HCT IS 5% LESS SOURCE FOR DATA: [employer] 1800 OPERATION MANUAL( AUTOMATED BLOOD COUNTS AND [...] 2-19 YEARS EXCLUSIVE. ID Date Data Source [id number] 03/10/2021 10:09:00 AM EDT [facility] ([facility] Name Value Range Interpretation Code Description Data Rosa rce(s) Supporting Document(s) Glu 123 mg/dL 70-110 Above high normal [facility] ([facility] CHRONIC KIDNEY DISEASE STAGING [...] above >32 mL/min Normal BUN 10 mg/dL 8- [facility] ([facility] CHRONIC KIDNEY DISEASE [...] >32 mL/min Normal Creat 0.8 mg/dL 0.7-1.2 [facility] ([facility] CHRONIC KIDNEY DISEASE STAGING [...] mL/min Normal BUN/Creatinine Ratio 12.1 CALC [facility] ([facility] CHRONIC KIDNEY DISEASE [...] mL/min Normal Na 136 mmol/L 136-145 [facility] ([facility] CHRONIC KIDNEY DISEASE STAGING [...] mL/min Normal K 3.9 mmol/L 3.5-5.1 [facility] ([facility] CHRONIC KIDNEY DISEASE STAGING [...] 21.7 mmol/L 22.0-29.0 Below low normal [facility] ([facility] CHRONIC KIDNEY DISEASE [...] mL/min Normal CL 99.9 mmol/L 98.0-107.0 [facility] ([facility] CHRONIC KIDNEY DISEASE [...] mL/min Normal CA 9.1 mg/dL 8.6-10.2 [facility] ([facility] CHRONIC KIDNEY DISEASE STAGING [...] >32 mL/min Normal TP 7.1 g/dL 6.6-8.7 [facility] ([facility] CHRONIC KIDNEY DISEASE STAGING [...] >32 mL/min Normal Alb 4.4 g/dL 3.5-5.2 [facility] ([facility] CHRONIC KIDNEY DISEASE [...] above >32 mL/min Normal Globulin 2.7 CALC [facility] ([facility] CHRONIC KIDNEY DISEASE [...] mL/min Normal A/G Ratio 1.6 CALC [facility] ([facility] CHRONIC KIDNEY DISEASE [...] 78 U/L 0-41 Above high normal [facility] ([facility] CHRONIC KIDNEY DISEASE [...] mL/min Normal Osmolality-Calculated 273.1 CALC [facility] ([facility] CHRONIC KIDNEY DISEASE [...] mL/min Normal Tbili 1.20 mg/dL 0.0-1.2 [facility] ([facility] CHRONIC KIDNEY DISEASE STAGING [...] 105 U/L 0-40 Above high normal [facility] ([facility] CHRONIC KIDNEY DISEASE [...] mL/min Normal Anion Gap 19 mmol/L [facility] ([facility] CHRONIC KIDNEY DISEASE [...] above >32 mL/min Normal eGFR 112 # [facility] ( [facility] CHRONIC KIDNEY DISEASE [...] and above >32 mL/min Normal eGFR Non-Afr. Swiss 96 # [facility] ([facility] CHRONIC KIDNEY DISEASE [...] >32 mL/min Normal ID Date Data Source [id number] 02/07/2021 10:40:00 AM EDT [facility] ([facility] Name Value Range Interpretation Code Description Data Rosa rce(s) Supporting Document(s) Chol 292 mg/dL 0-200 Above high normal [facility] (Family [...] Trig 580 mg/dL 35-200 Above high normal [facility] ([facility] CHRONIC KIDNEY DISEASE STAGING [...] YEARS EXCLUSIVE. Cho/HDL Ratio 8.0 Calc [facility] ([facility] CHRONIC KIDNEY DISEASE STAGING PER [...] Abnormal (applies to non -numeric results) [facility] ([facility] CHRONIC KIDNEY DISEASE [...] 2-19 YEARS EXCLUSIVE. ID Date Data Source [id number] 02/07/2021 10:40:00 AM EDT [facility] ([facility] Name Value Range Interpretation Code Description Data Rosa rce(s) Supporting Document(s) Glu 137 mg/dL 70-110 Above high normal [facility] ([facility] CHRONIC KIDNEY DISEASE [...] 2-19 YEARS EXCLUSIVE. BUN 11 mg/dL 8-23 [facility] ([facility] CHRONIC KIDNEY [...] YEARS EXCLUSIVE. Creat 0.8 mg/dL 0.7-1.2 [facility] ([facility] CHRONIC KIDNEY DISEASE STAGING [...] YEARS EXCLUSIVE. BUN/Creatinine Ratio 15.0 CALC [facility] ([facility] CHRONIC KIDNEY DISEASE [...] EXCLUSIVE. Na 136 mmol/L 136-145 [facility] ([facility] CHRONIC KIDNEY DISEASE STAGING PER [...] YEARS EXCLUSIVE. Alb 4.3 g/dL 3.5-5.2 [facility] ([facility] CHRONIC KIDNEY DISEASE [...] 2-19 YEARS EXCLUSIVE. Anion Gap 19 mmol/L [facility] ([facility] CHRONIC KIDNEY DISEASE STAGING [...] AGED 2-19 YEARS EXCLUSIVE. eGFR 112 # [facility] ( [facility] CHRONIC KIDNEY [...] INDIVIDUALA AGED 2-19 YEARS EXCLUSIVE. eGFR Non-Afr. Swiss 96 # [facility] ([facility] CHRONIC KIDNEY DISEASE [...] 2-19 YEARS EXCLUSIVE. ID Date Data Source [id number] 02/07/2021 10:39:00 AM EDT [facility] ([facility] Name Value Range Interpretation Code Description Data Rosa rce(s) Supporting Document(s) Amylase [Enzymatic activity/volume] in Serum or Plasma 51 U/L 31- 110 [facility] ([facility] Lipoprotein lipase [Enzymatic activity/volume] in Serum or Plasm a 56 U/L 13-78 [facility] ([facility] ID Date Data Source [id number] 11/17/2020 03:03:47 PM [facility] -REPORT:PROCEDURE: XR SCOLIOSIS SERIESDA TE AND TIME: 11/17/2020 11:03 AM ESTHISTORY: Back pain.COMPARISON: None prior study from October 05, 2015.TECHNIQUE: 6 views of the thoracic and lumbar spine are submitted forreview to comprise a scoliosis series.FINDINGS: There is dextroscoliosis of the thoracolumbar spine. Alignmentis otherwise grossly normal. No acute fractures are present. There ismultilevel rvvl-ea-dhgmmnar degenerative disc disease within the lumbarspine. There is also mild multilevel degenerative disc disease withinthe thoracic spine. The patient is status post prior anterior andposterior fusion within the cervical spine. The soft tissues are grosslynormal.IMPRESSION:Dextroscoliosis.Multilevel degenerative disc disease.DWS:[id number] SIGNATURE: Manjit Felton MD Name Value Range Interpretation Code Description Data Rosa rce(s) Supporting Document(s) ID Date Data Source [id number] 11/17/2020 12:07:19 PM EST [facility] Name Value Range Interpretation Code Description Data Rosa rce(s) Supporting Document(s) Progress Note [facility] rvices BNSTQl6vArXNYnGp54/DSMixBWYmq5ZkJHkeDLf3RVjaJPXaA2KkQZD1aV0cDBC4IDmOUoNtEkXnChDr [facility] [file] /1LH53nQ8wCacDsr/Mr/1BB79TeGEXTSiQmnsAi2P0j4fGvk7hX7G4neulx++electronic field service engineer+mvCzGVWuYL6xQ6Li CqbNMbwKX4WnK/gxgHbyyI0w8uQ/R/u/2EfKySbMry kp9Z/5MT+hGBofBUbUnUek9b31k3mhc1ChBlI5KflTgoudZlpxT/FtCBrz/M9Z4DpNq3w80PAG0rM6FM hIwLfuSpcDaCq1SWP1dt+qurxC+0pW1VojhlwcTyQ/mE41kOTrRK6NOjNh6n+rW1Gt5U5wX/WMhiXN8y N6+pK19sQsaXcCOkhWaJ3vQ6b88t1yfzOLla6VFaJ/ uf5O2EfwL6zhfHh9wR5f7B32Lbq1pTX+czRrOVMLKj+52Y85m6nMlkDMpLba0BVN7wz2YqTOAeACyzgh TdOvbYSqQgECSvq1OhHKdvHLd8XZrhUDIfS5E8eLWtVFMuLF1DJWQuGE3CYKWrowUgVeAkAMJMQhTaZZ IjIqXwz1YoA6PaLMTnHNWZACbhDFFoG02pUUwqQq51 OZldLYHfRkUmMRo4Xn3HKgSyDLCsY54txMNxvXHcENQhHSHXDNerWKGaM6wmg6OiLFa2BT3ZFF3QrxJp i3GwvyCxS2qrA6MYCL6PQRQwR4SEV9VgF9wuHaKwl5RqX3kaNzAnn1NbKv8HHsYhMu6TTmShJK5lmk9M BCKtRZSgBscILcAwZEmsQkcvmHCfCQ4JkKO5LEEtW2 6nZRWpDTIzR1JhKGQ1Bw2+UMzrINO8yfAupX5LYEDyaIzXuiDOau6E/A/tZAo7oa78XoiBKRa1PFP+iQ +oDhXLq6PK4O0pcbT7H6eM6IM0vEBmos6ETZaBM051ts37gg/62EImwaG0lKBRbH8qWZyLAf9w6xuWxC EPQVKopWAZJKMDLlmimAS5toFLJaC5HD9NCPEzS4o0 [file] AgICAgICAgICAgICAgICAgICAgICAgICAgICAgICAg ICAgICAgICAgICAgICAgICAgICAgICAgICAgDQogICAgICAgICAgICAgICAgICAgICAgICAgICAgICAg ICAgICAgICAgICAgICAgICAgICAgICAgICAgICAgICAgICAgICAgICAgICAgICAgICAgICAgICAgICAg ICAgICAgICAgDQogICAgICAgICAgICAgICAgICAgIC AgICAgICAgICAgICAgICAgICAgICAgICAgICAgICAgICAgICAgICAgICAgICAgICAgICAgICAgICAgIC AgICAgICAgICAgICAgICAgICAgDQogICAgICAgICAgICAgICAgICAgICAgICAgICAgICAgICAgICAgIC AgICAgICAgICAgICAgICAgICAgICAgICAgICAgICAg ICAgICAgICAgICAgICAgICAgICAgICAgICAgICAgDQogICAgICAgICAgICAgICAgICAgICAgICAgICAg ICAgICAgICAgICAgICAgICAgICAgICAgICAgICAgICAgICAgICAgICAgICAgICAgICAgICAgICAgICAg ICAgICAgICAgICAgDQogICAgICAgICAgICAgICAgIC AgICAgICAgICAgICAgICAgICAgICAgICAgICAgICAgICAgICAgICAgICAgICAgICAgICAgICAgICAgIC AgICAgICAgICAgICAgICAgICAgICAgDQogICAgICAgICAgICAgICAgICAgICAgICAgICAgICAgICAgIC AgICAgICAgICAgICAgICAgICAgICAgICAgICAgICAg ICAgICAgICAgICAgICAgICAgICAgICAgICAgICAgICAgDQogICAgICAgICAgICAgICAgICAgICAgICAg ICAgICAgICAgICAgICAgICAgICAgICAgICAgICAgICAgICAgICAgICAgICAgICAgICAgICAgICAgICAg ICAgICAgICAgICAgICAgDQogICAgICAgICAgICAgIC AgICAgICAgICAgICAgICAgICAgICAgICAgICAgICAgICAgICAgICAgICAgICAgICAgICAgICAgICAgIC AgICAgICAgICAgICAgICAgICAgICAgICAgDQogICAgICAgICAgICAgICAgICAgICAgICAgICAgICAgIC AgICAgICAgICAgICAgICAgICAgICAgICAgICAgICAg SNGlZJRiKWWfBKEnKCDnIAGyTIIcONFqFQHdPHOpUIQrMZHpPNa2E0xdWRIwYHDfOY6cCOm9Gf7+DQoN IbGdZMO1gwZcoT0NGR5jp8DxZDwgLRIve0CcSSr5BH1QOQPfDFfyFW1KGJkmkx8QJZXpAVRleWPKx0ls GrWdQZD6YEUlLwjlLC7WBZKdP6ljpmHxLIIbWQSDZU usZRLGZJemVALGGLCrGTDjWyQuFnHnTSNjFG7ADIPkX359raBtAG8QMt6ZPtSxJQ9ndf6ODRIzSKKbLy yVTfp2BNswNX1QmOUnjDH2DzLmLOQIGxMrM3oij1IzVGSlXGIVALapGF0Ex6PjiENuVOy+Jn7YCP0rv1 MnEAo0NiWwTX6hxv3YRZxSDyKgF3DtnRwwWFMem8dl TBTwWH2wlIIaHRC8YEceZIstAXVMPISirGtfUUEILMGwoQHbLeXzIaWdZJYrZDvpNYWKTQzBRuQdN4Mc a7ExFgP8KPVaNeKgCUnlXNYyJyK1XD85pBsnTP3TIGJcKGGjDV25RHOzIIYlUw1FJd9WLjWkQW5mvf5M WHWnYGJxBqjFGzo2YJkdKY3GfYDfF3SoaQXmd2xFEp CnV2JAXFE8JLFmGw2LRURzYsZpMOKnSKbxAM0kPOQdJRFIrTkpkfG8XP2DAS9nrdUsZC2YRoMoWt5wKz 3KGaNvR1RkG6AeFMBpLPBAAYcrDH7IDAktSI3zMQ2Cj5YGdXSciY6lnk5SCDXgFHCaJqlybz0HZyueD1 P6vPfrUFJcCRAxQIZKHNtoFB4QVMPaXPO7RFE8WAUk HAVLAiTzJ56dZZ0BA0Chz17sQpK9HKMbNuToWDmzQF88vJqizsWvuSYxyFgkBC6EYh6+DQplbmRvYmoN LiapWPXUHxPlEKIMHzOdANYfQOZuUFFcScW8IyVuJl0EFJVmTERxMQExIjRsIOJjIHQwAKryHZPaCNGb TJA9JNCnBNNcIF6QUaQsJTXfXYQ5PeWfUNSlUHPpej 4ZTZRiGUGjPUO2EqIhUYHiARXcZBeuATBqKZQrWpU1VDOnBXEqPH1OLfTvTXKsRRF4LUKaTIUeGMWgco 3SVPKoTWUcVJOmGQSpDEXjJFAuLGlhTWMeKOW1NOPmSRFxWIZdQX5QFuRbGLPnEJx8KEGhGJGfHTSnic 2DAIUrBZErEBTeBGKiEJEaXHPwNSmjZSJiCQJ9DfH5 FOFiAYFsWM7NNaDbHJYeCNp0DQFiPFNrCGZjzn0APVZiMSBiHFw4YBFzCMZpGODhZDumOZDhNXLgDUm4 PZCxHZIpHI1WIbPgLGSqUGSaCFHbNQPjVMMsvw8GDGCgGMIaTPB2XTDlXWHeDVXdMSbtNWZoNCZrGRW4 MVEaPXJlIP1CXxYkHULwLXT7BMGgETDhPRXrtj8CLJ XySICaHrM6WpYoIIZgNGOcNQurCOQeJCEkAUk4FGNnNWBaGU3NAmPfOFIxTpNgDaJyRGLqWYJkfg1SBH VxTKAcUSN1QVTfPSYyNILeCBzuJSGwOWT0PmGpWJEsBOWmBU6OFlUnECCwAaV2OVKiYEMxAOCzjg8EGK BkOTUnNCUfHpByNESyGOYrRQjwKIBgDYF2NWy9IFRw PJDdVO1NKzXnPUFiGrEpXqPuAMLeQNUffr5PXYXdUKOzDoP2YMOrQLCxAVWsDUjfGJDgCXF3ArqxDTMr UKGtKF3CPxQaDYYhCpm3FzKtCXXoQKFxyn5WYQEcHMFtIej0DNFhMDIsYOMeZSdaGIDfHMH0UgvkPYQp QZOmXQ6IVhNaQNQaQwq6QhGtDWApFZWkjg5RTMEfZI HaYGD0NNDkCWAtUXAiDTpyIWIfUBElUAqxXZXhFFMnOE1WArZkSZTaPERhHXOdMZBnXZWuva4DSVOwEB X0LdMjKaIuGKLxSEVpCWtjPZPmHXIaTaR8KYHvKAXuED1XFvMrFGVmXHM8VAPwOZFzBXGdfs6SMRRaEW K6IwA9IMEvLIAnBOJsMXpkYTHtSKB3FlZ2NARmVFNz JK3ATaQzWQMiMPL8YIWpAXFqSSUyhq8AYPUrJXZ6RIj0HRFuDXYdHPNiZMb7fkIjpQGjFYf1MT2DT1Kf egXeCBJQOs3Dh704GGJgLWWyIu3IP0zvSv4sNLIoKTTPZf4RDXf4MYWxMDOtXwW9KyCwJgQkZeFhMqOp TvVaCRW9TZSpDJS+MWu4CpMvLBQqCGnuWHBkCRNlKI CkXlNbWvJpLdm3MlCrRZ1nMYNWBj6+YYrijBLhaAyzDOTXViM6JfW7PUcnMVYLHr4Q ID Date Data Source [id number] 11/17/2020 12:07:14 PM EST [facility] Name Value Range Interpretation Code Description Data Rosa rce(s) Supporting Document(s) Progress Note [facility] Se rvices ZJAUSe5kWtHURiWp44/KZBnwESExs5OjJFhaTIp0NAikCTTgJ9KuSEQ6jB9pFGL2BDnDEdGxZqTrQcTh lbm [file] MaDxrjWfLqHF6GYz4TQxE2MOR4eNAkDm3LKaWvLtvWCsQbWN0QPDf= ID Date Data Source [id number] 11/10/2020 12:00:00 AM [facility] Elmer Kumar MD Patient Name: RIOS CORNEJO Date of : 1960[place] [address] Date of Exam: 11/10/2020#: Fax: [phone] EXAM: [...] cm high signal lesion within the right F23yvfxbcqm which measured only 5 mm in 2015. [...] by: Dago Mason MD 11/10/2020 2:24 PM [facility] ( & Jayashree)VrevaV/jmcThank you for referring ANA CORNEJO to our office. Electronically Signed - VENUSAD 11/10/20 14:55 Name Value Range Interpretation Code Description Data Rosa rce(s) Supporting Document(s) ID Date Data Source [id number] 11/10/2020 12:00:00 AM [facility] Elmer Kumar MD Patient Name: ANA COR[address] Date of : 1960[place] [address] Date of Exam: 11/10/2020#: Fax: [phone] EXAM: [...] MD 11/10/2020 1:49 [place] ([place] & [place]VradV/jmcTdragank you for referring ANA CORNEJO to our office. Electronically Signed - VRAD 11/10/20 14:10 Name Value Range Interpretation Code Description Data Rosa rce(s) Supporting Document(s) ID Date Data Source [id number] 10/11/2020 12:59:36 PM EST [facility] Name Value Range Interpretation Code Description Data Rosa rce(s) Supporting Document(s) Progress Note [facility] rvices QNVJPw8eLjHFIdBc67/CRBdoKULtd5FpBQwzPIb2YBqmCEWrC4GdPCN8nH8yGKK9ZXoFJdXiPuMeArU0 lbm [file] ICAgICAgICAgICAgICAgICAgICAgICAgICAgICAgICAgICAgICAgICAgICAgICAgICAgICAgICAgICAg ICAgICAgICAgICAgICAgICAgICAgICAgICAgICAgICANCiAgICAgICAgICAgICAgICAgICAgICAgICAg ICAgICAgICAgICAgICAgICAgICAgICAgICAgICAgIC AgICAgICAgICAgICAgICAgICAgICAgICAgICAgICAgICAgICAgICAgICANCiAgICAgICAgICAgICAgIC AgICAgICAgICAgICAgICAgICAgICAgICAgICAgICAgICAgICAgICAgICAgICAgICAgICAgICAgICAgIC AgICAgICAgICAgICAgICAgICAgICAgICANCiAgICAg ICAgICAgICAgICAgICAgICAgICAgICAgICAgICAgICAgICAgICAgICAgICAgICAgICAgICAgICAgICAg ICAgICAgICAgICAgICAgICAgICAgICAgICAgICAgICAgICANCiAgICAgICAgICAgICAgICAgICAgICAg ICAgICAgICAgICAgICAgICAgICAgICAgICAgICAgIC AgICAgICAgICAgICAgICAgICAgICAgICAgICAgICAgICAgICAgICAgICAgICANCiAgICAgICAgICAgIC AgICAgICAgICAgICAgICAgICAgICAgICAgICAgICAgICAgICAgICAgICAgICAgICAgICAgICAgICAgIC AgICAgICAgICAgICAgICAgICAgICAgICAgICANCiAg ICAgICAgICAgICAgICAgICAgICAgICAgICAgICAgICAgICAgICAgICAgICAgICAgICAgICAgICAgICAg ICAgICAgICAgICAgICAgICAgICAgICAgICAgICAgICAgICAgICANCiAgICAgICAgICAgICAgICAgICAg ICAgICAgICAgICAgICAgICAgICAgICAgICAgICAgIC AgICAgICAgICAgICAgICAgICAgICAgICAgICAgICAgICAgICAgICAgICAgICAgICANCiAgICAgICAgIC AgICAgICAgICAgICAgICAgICAgICAgICAgICAgICAgICAgICAgICAgICAgICAgICAgICAgICAgICAgIC AgICAgICAgICAgICAgICAgICAgICAgICAgICAgICAN CiAgICAgICAgICAgICAgICAgICAgICAgICAgICAgICAgICAgICAgICAgICAgICAgICAgICAgICAgICAg ICAgICAgICAgICAgICAgICAgICAgICAgICAgICAgICAgICAgICAgICANCjw/tYMlG2pbgCJytiU7U7yp Tr6ASy0FCV6eo9OaVKYyXUakxxJxNfkYPzGkFNBhLg nZOyr4LJekGO8BzZFvY3TvU5ZlQZcdNX7JKFIrKAJtsGXdWUKyGUCsXmU0WGNyIRqnEX5GtCUgHSbmZG GvIVHvSdCgEHJfKCJrIXXuQWXhFLEYPY6FXqFgJ1SdyV27HJKJYg7+VMvrbnWoYoaPUzK2EVGjw5UzUJ y1SC6HKPFjYilrf3WzYIUhKVQYRFviST0AWAS8OUHi HHYzZj9TDYRiC524blEiDU1DMm5HMtDkGZ2szu7RYCQtXFNeCojHZhi6PRsjEU3SvWAkVZcMzj4sycPh dqJZb2LhwzPoxNXMjXDeaHSwBNQLXWMvyJupWDWuJWOeLSHnLaqmQlXhEZMzYVqfPBCEXSrINjMdD1Fc d8SoLiU1SXGaNoTwOBmhBLBzVbH1HH33pIguPT3GHM DjLUMuDU98DXN2ARHoNd5LQy4EWvClNC1hmc0RRBYhMMGbTxeINti2SSilJV8PjBNyD7KnwYPfx6yIJd KkI2EXNTS0FFZvHt0ERGTrJeGxCSDbJDkkUM7mBJTrMBERwZllxrU3KW8DSQ5txpOmEI5JWiGuXx5qDg 4FHkAzE4MkW2ChTEEeGAPFBMosHQ3ILOniXC0jGS1B s0UKsGBvxH2hvo5DBMOkNPIsTlizwn7HZeicE4R1zUfsIRGrXqziSWLKIUlvQT5FXJZeSJP8KYDkXWTm RUBSGcBoQ19fZU5IM7Tti57lHmB6GMEeGyDoUUpeEM00qQckksTnvIMnyGcbTX8EYe8+DQplbmRvYmoN EozfNPSQWgVrGDFMJpXgQYXlEWTxJIPiZgR2FvTyId 8DBGJhOGYwSUPyWyMnVAJlZFBgNEsrTISqRSIgAVs4RCJzRNZlTV3GFnEbREYfNQDkBzOdKBQpOPIawt 1ZNUDrEXSsWUF0ExFdUGHjNURjONleLNCdSJLeVwz9GKTsSJZgGC9CSyPnKMFdEMYfELKgUPWgJVSaov 2XUWUmTSNeGTG6ObSkKXUlPZMcCQkvQLAmFGT7MHGw XXHhACCyYF4AMyBaIJOcHMH7GJQoHHCbLCFpui8YATFwCKXmRvQ1BTZmOFXsZIOhYAujTFFyDSF1WfKo KFItCIGeWV4OAtJsYXAuCAn6MhwtGIEaKKFswp3ILONjAPMeBMi7CjYnLRVnUPVeRQhgZZVrZHV7FVl3 VKLzRWLnVY7OInVaTJZgGRxjWyooWLVzKHOpsm3BTO SvLAOtISElHnAiLSVgIDNgEHncDUTeIRIeIcB4HUObCJSlFC3OGpMfQLTaCUX4DEnvPUQjYJVntm7AEW HzTQThGNj0HbUlNPDjFOIpXJeoJDWgBSDlKLkbIJTdEFQkQG6BUvZlIIUwOuYmUCEkSGZoWHLvvz9YJB OaJNKdFeAsYHYzIPQmIUZcCPddOJDaTNOuYai4NNQg ZNEkUE7FCaJxNDJbNpT4AwEbYLOoKVNcjh7NUOXcYSKnHhseSRDvQPOdVGGuMSecQVLxOKN0NZv4DGLy QYLmLV3KEbVoSMUjCsKaZeKyBVJhVKMufn9RBPKzUFOxZXIjMjJyUGXjWXKtEEeiCUByFUI2Zon0JAAo IJOuZC1CJuNoBOWcOuJzLhPiHLZzGTRmzi3KRURgST LnDpArHeAzOZYaUBDoHUzhSPToQHB1Ktu8CYPjCSGmYJ2CRjJeOILqXka6RfSjVTLhRHEbfa9TYJDhGE WgUJl5QJMoXMLtPHGrQRzbMUBnPZBwCYR7JUOhHATyYX2QKyHoPCAbBVLdEEepLTIrHKJmgt7LIZJoKK Q8MRZ6QmJkJEAjYDXgXLbyNPRbKXKeHYSbYJLkAAFb LC8SWyXuCSVtVFSrTakxLTRnYSHvzd4DJXJoKKU2KmV8IMVjNZVdLEMqGEdtVNPuEGDtNeRqENLmEDSm IM4ODwZoRHtiUEKNYcf5VJciH3j2UVV8At7RJ3Dgp0BqPORaLUOZQZjcNS7lbgMhWSZoVp5SF2oNNysv UXPbXUbtEnObZaY2LEE4XMEaRUabKHBtPBZxHJxiYK 3aSWMxCjO9O9RbHOFlXMI7WFD7CTPeV9P3U6I7ZLNvX1Y9FvAxRJ1NZq9AFyV0IUZ8yTVvYy4ZWSP5OT UWJwTsWY4TVGe= ID Date Data Source [id number] 10/11/2020 12:42:24 PM EST [facility] Name Value Range Interpretation Code Description Data Rosa rce(s) Supporting Document(s) Progress Note [facility] Se rvices PUWROz1wMxMSLnUo13/IWZgbAFTpi8GcBGzfPIx3JVikKMAzT7JdZXE4sT9xAUC6NOaUQaRwAmRoEpX5 lbm [file] w5muugDLK+/xGx3/Qffro/ZcMd+hIk5qnkPyle [file] YaYsD5BUUtMTS8AJutRYW7SfW+FK1iADh+At2Cv3CpmyW5xrAhOKzgVQC0It0ECQRRQ0KRSf== ID Date Data Source [id number] 10/07/2020 08:36:00 AM EST [facility] ([facility] Name Value Range Interpretation Code Description Data Rosa rce(s) Supporting Document(s) [facility] test result [facility] ([facility] ID Date Data Source [id number] 09/20/2020 08:37:00 AM EST [facility] Name Value Range Interpretation Code Description Data Rosa rce(s) Supporting Document(s) Progress Note [facility] Se rvices BZYNJw5wQkDYJtZi70/GFUltQGIgp2BaBGurPCk1ICzvXIXvJ9OrERY9sQ3fKNN5ABpROnGkBdNiFjZ5 lbm FzBqwSOqNzKQNfSpgTEvQeZTkjEhfarIKcFD8CfLW8KMAhI34fEYOaRFUaO1RrICW0VgK+Ht6PXZEcaM YuJX7WBtpFzC4ra9h9RC8k6C+hwaLL4ty1iRa9NIRAlss2hcDFvjcyGsu1VWmxv3blRTirs+lPLXnvpU FtW3cUv7/OPdfxA07GErRV09HdEeoec//pPgtD3/dd +d/qk1SlyjL9z/1iz99H4qZf6t+zgIkoP0uJlvX/kX202t1/+Klh5o8pztmq5cCVTvGEwv/y4/iyi6Pv 7iRju+tjybd6mFx+0978p4Ns1ITxC+Rosy//ZSk88cr8rtafjFnkNp8b9QtW8AGy80FX/5vkvKA79LJmx [file] 4+USfrrAEjdDdwHFQFFwY8NAF6HZjgMOSYQy5G Procedure Social History Code Duration Value Status Description Data Source(s ) Alcohol intake 11/17/2020 12:00:00 AM EST Current drinker of al cohol (finding) [facility] Tobacco use and exposure 10/11/2020 12:00:00 AM EST Never used [facility] Tobacco smoking status NHIS 10/11/2020 12:00:00 AM EST Never smoker [facility] Alcohol intake 10/11/2020 12:00:00 AM EST Current drinker of al cohol (finding) [facility] Vital Signs ID Date Data Source UNK Name Value Range Interpretation Code Description Data Source(s) Body temperature 98.0 [degF] 98.0 [degF] [facility] ([facility] Heart rate 88 /min 88 /min [facility] ([facility] Respiratory rate 18 /min 18 /min [facility] ( [facility] Body height 71 [in_i] 71 [in_i] [facility] ([facility] 5'11" Body weight 197.00 [lb_av] 197.00 [lb_av] MEDEN T ([facility] [place] body weight 172 [lb_av] 172 [lb_av] [facility] T ([facility] Body mass index (BMI) [Ratio] 27.5 kg/m2 27.5 k g/m2 [facility] ([facility] Oxygen saturation in Arterial blood by Pulse oximetry 90 % 90 % [facility] ([facility] Systolic blood pressure 142 mm[Hg] 142 mm[Hg] M EDENT ([facility] Diastolic blood pressure 94 mm[Hg] 94 mm[Hg] [facility] ([facility] Systolic blood pressure 154 mm[Hg] 154 mm[Hg] M JOSÉ MIGUEL ([facility] ) Diastolic blood pressure 96 mm[Hg] 96 mm[Hg] [facility] ([facility]) Body temperature 98.8 [degF] 98.8 [degF] [facility] ([facility]) Body height 70 [in_i] 70 [in_i] [facility] ([facility]) 5'10" Body weight 200.25 [lb_av] 200.25 [lb_av] MEDEN T ([facility]) Body mass index (BMI) [Ratio] 28.7 kg/m2 28.7 k g/m2 [facility] ([facility]) [place] body weight 166 [lb_av] 166 [lb_av] MED[facility] T ([facility]) Body weight 90.833 kg 90.833 kg [facility] ([facility]) Body surface area Derived from formula 2.09 m2 2.09 m2 [facility] ([facility]) [place] body weight 172 [lb_av] 172 [lb_av] MED[facility] T ([facility] Body mass index (BMI) [Ratio] 28.0 kg/m2 28.0 k g/m2 [facility] ([facility] Systolic blood pressure 136 mm[Hg] 136 mm[Hg] M EDENT ([facility] Diastolic blood pressure 88 mm[Hg] 88 mm[Hg] [facility] ([facility] Body temperature 99.2 [degF] 99.2 [degF] [facility] ([facility] Heart rate 96 /min 96 /min [facility] ([facility] Respiratory rate 16 /min 16 /min [facility] ( [facility] Body height 71 [in_i] 71 [in_i] [facility] ([facility] 5'11" Body weight 201.00 [lb_av] 201.00 [lb_av] MEDEN T ([facility] Oxygen saturation in Arterial blood by Pulse oximetry 95 % 95 % [facility] ([facility] Body temperature 97.7 [degF] 97.7 [degF] [facility] ([facility] Body weight 201.00 [lb_av] 201.00 [lb_av] MEDEN T ([facility] Body height 71 [in_i] 71 [in_i] [facility] ([facility] 5'11" Systolic blood pressure 140 mm[Hg] 140 mm[Hg] M EDENT ([facility] Diastolic blood pressure 70 mm[Hg] 70 mm[Hg] [facility] ([facility] Heart rate 81 /min 81 /min [facility] ([facility] Respiratory rate 16 /min 16 /min [facility] ( [facility] [place] body weight 172 [lb_av] 172 [lb_av] MEDEN T ([facility] Body mass index (BMI) [Ratio] 28.0 kg/m2 28.0 k g/m2 [facility] ([facility] Oxygen saturation in Arterial blood by Pulse oximetry 98 % 98 % [facility] ([facility] Respiratory rate 18 /min 18 /min [facility] ( [facility] [place] body weight 172 [lb_av] 172 [lb_av] MEDEN T ([facility] Body height 71 [in_i] 71 [in_i] [facility] ([facility] 5'11" Body weight 198.00 [lb_av] 198.00 [lb_av] MEDEN T ([facility] Diastolic blood pressure 80 [...] 97 % [facility] ([facility] Respiratory rate 16 /min 16 /min [facility] ( [facility] Systolic blood pressure 124 mm[Hg] 124 mm[Hg] M EDENT ([facility] Diastolic blood pressure 84 mm[Hg] 84 mm[Hg] [facility] ([facility] Body temperature 98.2 [degF] 98.2 [degF] [facility] ([facility] Heart rate 92 /min 92 /min [facility] ([facility] Body weight 202.50 [lb_av] 202.50 [lb_av] MEDEN T ([facility] [place] body weight 172 [lb_av] 172 [lb_av] MED[facility] T ([facility] Body mass index (BMI) [Ratio] 28.2 kg/m2 28.2 k g/m2 [facility] ([facility] Oxygen saturation in Arterial blood by Pulse oximetry 96 % 96 % [facility] ([facility] Body height 71 [in_i] 71 [in_i] [facility] 5'11" Body height 71 [in_i] 71 [in_i] [facility] 5'11" Body weight 199.00 [lb_av] 199.00 [lb_av] MEDEN T ([facility] Systolic blood pressure 124 mm[Hg] 124 mm[Hg] M EDENT ([facility] Diastolic blood pressure 88 mm[Hg] 88 mm[Hg] [facility] ([facility] Body temperature 98.3 [degF] 98.3 [degF] [facility] ([facility] Heart rate 96 /min 96 /min [facility] ([facility] Respiratory rate 20 /min 20 /min [facility] ( [facility] [place] body weight 172 [lb_av] 172 [lb_av] MEDEN T ([facility] Body mass index (BMI) [Ratio] 27.8 kg/m2 27.8 k g/m2 ALESSANDRO ([facility] Oxygen saturation in Arterial blood by Pulse oximetry 97 % 97 % [facility] ([facility] ID Date Data Source [id number] 11/17/2020 12:07:19 PM EST [facility] Name Value Range Interpretation Code Description Data Source(s) WEIGHT 195 lb 195 lb [facility] HEIGHT 70 in 70 in [facility]
[2021-09-21] MEDS ORDERED: OMEP-221 PO (06:10)
[2021-09-21] MEDS ORDERED: FENO145T7 (06:10)
--- OUTSIDE RECORDS SUMMARY | 2021-09-21 07:10 | CCD ---
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 Role Phone Stacy, A Khalid Unavailable [phone] Stacy, A Khalid Unavailable [phone] Stacy, A Khalid Unavailable [phone] Stacy, A Khalid Unavailable [phone] Stacy, A Khalid Unavailable +[phone] Stacy, A Khalid Unavailable +[phone] Stacy, A Khalid Unavailable +[phone] Stacy, A Khalid Unavailable [phone] Stacy, A Khalid Unavailable +[phone] Stacy, A Khalid Unavailable +[phone] Stacy, A Khalid Unavailable +[phone] Stacy, A Khalid Unavailable +[phone] Stacy, A Khalid Unavailable +[phone] Stacy, A Khalid Unavailable +[phone] Stacy, A Khalid Unavailable +[phone] Stacy, A Khalid Unavailable [phone] Stacy, A Khalid Unavailable [phone] Stacy, A Khalid Unavailable [phone] Stacy, A Khalid Unavailable [phone] Stacy, A Khalid Unavailable [phone] Stacy, A Khalid Unavailable [phone] Stacy, A Khalid Unavailable [phone] Stacy, A Khalid Unavailable [phone] Stacy, A Khalid Unavailable [phone] Stacy, A Khalid Unavailable [phone] Stacy, A Khalid Unavailable [phone] Stacy, A Khalid Unavailable [phone] Stacy, A Khalid Unavailable +[phone] Stacy, A Khalid Unavailable +[phone] Stacy, A Khalid Unavailable +[phone] Stacy, A Khalid Unavailable +[phone] Stacy, A Khalid Unavailable +[phone] Stacy, A Khalid Unavailable +[phone] Stacy, A Khalid Unavailable +[phone] Stacy, A Khalid Unavailable +[phone] Stacy, A Khalid Unavailable +[phone] Stacy, A Khalid Unavailable +[phone] Stacy, A Khalid Unavailable +[phone] Stacy, A Khalid Unavailable +[phone] Stacy, A Khalid Unavailable +[phone] Stacy, A Khalid Unavailable +[phone] Stanley ALBARRAN MD Unavailable Unavailable DEION, O GAVIOTA GAMEZ Unavailable [...] Unavailable Stanley ALBARRAN MD Unavailable Unavailable Ziyad SANDS MD Unavailable [...] is protected by Article 27-F of the [facility] Public Health law. If you continue you may have access to information: Regarding HIV / AIDS; Provided by facilities licensed or operated by the [facility] Office of Mental Health; or Provided by the [facility] Office for People With Developmental Disabilities. If such information is present, then the following [facility] mandated warning applies: This information [...] law may result in a fine or [place] health care facility sentence or both. A general authorization for the release of medical or other information is NOT sufficient authorization for further disc losure. Allergies and Adverse Reactions Type Description Substance Reaction Status Data Source(s ) Propensity to adverse reactions NO KNOWN ALLERGIES NO KNOWN ALLERGIES [facility] Propensity to adverse reactions ALLERGIES NOT ON FILE ALLERGIES NOT O N FILE [facility] Family History Family Member Name Family Member Gender Family Member Status Date o f Status Description Data Source(s) Unknown Male Diagnosis 08/22/2018 12:00:00 AM EST [facility]Gen ([facility]) Unknown Female Problem [facility] ([facility], ) Unknown Female Encounters Encounter Providers Location Date Indications Data Source(s ) Outpatient Attender: SUNITA Arnold Office 03/2021 10:30:00 AM EST [facility] ([facility] Outpatient Attender: Aleena Weber MD 1 11/19/2020 10:59:26 AM EST - 09/18/2021 01:09:16 PM EST [facility] ([facility]) Outpatient Attender: GAVIOTA Holcomb/Mariama/Cecil/Re indl 08/12/2021 02:00:00 PM EDT [facility] ([facility] Outpatient Attender: [...] 08/08/2021 12:00:00 AM EDT ORAL active MEDENT ([facility] Amoxicillin 875 MG / [...] HCL 07/04/2021 12:00:00 AM EDT active MEDENT ([facility] 50 mg 07/01/2021 12:00:00 AM [...] Hydrocodone Bitartrate 5 MG Oral Tabl et [[place] 06/08/2021 12:00:00 AM EDT ORAL active MEDENT ([facility] Acetaminophen 325 [...] Omeprazole 02/07/2021 12:00:00 AM EDT active MEDENT ([facility] 40 mg 02/07/2021 12:00:00 AM [...] prior to procedure, may repeat 1 time. [facility] Take 1 tab po q 1/2hr prior to procedure , may repeat 1 time. Diazepam 5 MG Oral Tablet diazePAM (VALIUM) 5 mg table t diazePAM (VALIUM) 5 mg tablet 11/10/2020 12:00:00 AM EST completed Take 1 tab po q 1/2hr prior to procedure, may repeat 1 time. [facility] Take 1 tab po q 1/2hr prior to procedure , may repeat 1 time. 5-325 mg 11/10/2020 12:00:00 AM EST tablet 60 TAKE ONE TABLET BY MOUTH EVERY 8 HOURS NEEDED MAXIMUM DAILY DOSE = 2 TABLETS TAKE ONE TABLET BY MOUTH EVERY 8 HOURS NEEDED MAXIMUM DAILY DOSE = 2 TABLETS SOLD: 11/10/2020 [facility] Diazepam 5 MG Oral Tablet diazePAM (VALIUM) 5 mg table t diazePAM (VALIUM) 5 mg tablet 11/10/2020 12:00:00 AM EST completed Take 1 tab po q 1/2hr prior to procedure, may repeat 1 time. [facility] Take 1 tab po q 1/2hr prior to procedure , may repeat 1 time. 5 mg 11/06/2020 12:00:00 AM EST tablet 2 TAKE 1 TABLET BY MOUTH 1/2 HOUR BEFORE MRI, MAY REPEAT ONE DOSE MAXIMUM DAILY DOSE = 2 TABLETS TAKE 1 TABLET BY MOUTH 1/2 HOUR BEFORE MRI, MAY REPEAT ONE DOSE MAXIMUM DAILY DOSE = 2 TABLETS SOLD: 11/07/2020 [facility] Diazepam 5 MG Oral Tablet diazePAM (VALIUM) 5 mg table t diazePAM (VALIUM) 5 mg tablet 11/05/2020 12:00:00 AM EST compl eted Cervical stenosis of spinal canal Take one pill 1/2 before mri, may repeat x 1 [facility] Cervical stenosis of spinal canal Take one pill 1/2 before mri, may repeat x 1 Lorazepam 0.5 MG Oral Tablet Lorazepam 11/05/2020 12:00:00 AM EST ORAL active [facility]ENT ([facility] Diazepam 5 MG Oral Tablet diazePAM (VALIUM) 5 mg table t diazePAM (VALIUM) 5 mg tablet 11/05/2020 12:00:00 AM EST compl eted Cervical stenosis of spinal canal Take one pill 1/2 before mri, may repeat x 1 [facility] Cervical stenosis of spinal canal Take one pill 1/2 before mri, may repeat x 1 Diazepam 5 MG Oral Tablet diazePAM (VALIUM) 5 mg table t diazePAM (VALIUM) 5 mg tablet 11/05/2020 12:00:00 AM EST compl eted Cervical stenosis of spinal canal Take one pill 1/2 before mri, may repeat x 1 [facility] Cervical stenosis of spinal canal Take [...] 12:00:00 AM EST ORAL active M EDENT ([facility] Zithromax Z-[place]onte Zithromax Z-[place]onte 08/16/2020 12:00:00 AM EST ORAL completed [facility] ([facility] 5-325 mg 08/07/2020 12:00:00 [...] type / Coverage type Policy ID Covered libertarian ID Covered libertarian's relationship to parkinson Policy Parkinson Plan Information Registered Nurse Cardiac () Workers Compensation [id number] Self BLUE CROSS GUILLEN PLAN [id number] SP [id number] O BLUE [id number] SP [id number] BLUE CHOICE OPTIONS [id number] [facility] Community Plan Commercial [id number] Self [facility] I [id number] Self [id number] Medicaid [employer] Part B [id number] Self MEDICARE [id number] SP [id number] A MEDICARE MEDICARE [id number] SP [id number] MEDICARE [id number] SP [id number] A MEDICAID [facility] Medicare Medicare Part B [id number] Self [id number] [facility] MEDIC[facility] PART B C [id number] S [id number] MEDICARE [id number] SP [id number] A MEDICARE [id number] SP [id number] A MEDICAID UNAVAILABLE UNAVAILA BLE [facility](MCA[facility]) O [id number] S [id number] MEDICARE [id number] SP [id number] SELF PAY [id number] SP [id number] UNHC COMMUNITY PLAN MCDO [id number] SP [id number] FORMERLY [facility] COMMUNITY PLAN MCDO [id number] SP [id number] MEDICAID 3 [id number] 1 [id number] SELFPAY 5 UNAVAILABLE 1 UNAVAILA BLE BLUE CHOICE OPTN FHP O [id number] S [id number] EXCELLUS BCBS P [id number] S [id number] [place] [id number] SP [id number] M O UNAVAILABLE UNAVAILA BLE MEDICARE C [id number] S [id number] NGS MEDICARE NEW HAMPHIR O [id number] S [id number] MEDICAID [id number] SP [id number] MEDICAID M [id number] S [id number] [facility] [id number] [facility] [facility] [id number] Self [id number] Medicaid [facility] [id number] Self [id number] Medicare [facility] Medicare Primary [id number] Self [id number] MEDICARE C [id number] S [id number] A [facility] PART B C [id number] S [id number] Medicare [facility] Medicare Primary [id number] Self Medicaid [place] Medigap Part B [id number] Self [facility] Health Maintenance Organization (HMO) [id number] Self Problems, Conditions, and Diagnoses Code Display Name Description Problem Type Effective Dates Data Source(s) M47.816 Spondylosis without myelopathy or radicu lopathy, lumbar region Spondylosis without myelopathy or radiculopathy, lumbar region Diagnosis 11/17/2020 11:30:38 AM EST [facility] M41.20 Other idiopathic scoliosis, site unspeci fied Other idiopathic scoliosis, site unspecified Diagnosis 11/17/2020 11:30:38 AM EST [facility] Z98.1 Arthrodesis status Arthrodesis status Diagnosis 12/2020 11:30:38 AM EST [facility] Neck Pain Neck Pain Diagnosis 11/17/2020 11:30:38 AM ES T [facility] 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, thoracic region Spondylosis without myelopathy or radiculopathy, thoracic region Diagnosis 11/17/2020 10:44:47 AM EST [facility] M48.02 Spinal stenosis, cervical region Spinal stenosis , cervical region Diagnosis 11/17/2020 10:44:47 AM EST [facility] M21.371 Foot drop, right foot Foot drop, right foot Diagnosis 10/11/2020 12:40:51 PM EST [facility] Surgeries/Procedures Procedure Description Date Indications Data Source(s) OFFICE OUTPATIENT VISIT 25 MINUTES 09/19/2021 12:00:00 AM EST [facility] ([facility] OFFICE OUTPATIENT NEW 45 MINUTES 08/12/2021 12:00:00 A M EDT [facility] ([facility], ) OFFICE OUTPATIENT VISIT 25 MINUTES 08/08/2021 12:00:00 AM EDT [facility] ([facility] OFFICE OUTPATIENT VISIT 25 MINUTES 08/01/2021 12:00:00 AM EDT [facility] ([facility] OFFICE OUTPATIENT VISIT 25 MINUTES 02/07/2021 12:00:00 AM EDT [facility] ([facility] XR SCOLIOSIS SERIES XR SCOLIOSIS SERIES 11/17/2020 11:24:12 AM EST [facility] GENERAL SUPPLY GENERAL SUPPLY 10/11/2020 12:59:11 PM EST [facility] Results ID Date Data Source [id number] 09/19/2021 11:41:00 AM EST [facility] ([facility] Name Value Range Interpretation Code Description Data Rosa rce(s) Supporting Document(s) Amylase [Enzymatic activity/volume] in Serum or Plasma 51 U/L 31- 110 [facility] ([facility] Lipoprotein lipase [Enzymatic activity/volume] in Serum or Plasm a 36 U/L 13-78 [facility] ([facility] ID Date Data Source [id number] 09/19/2021 11:41:00 AM EST [facility] ([facility] Name Value Range Interpretation Code Description Data Rosa rce(s) Supporting Document(s) WBC 6.6 10E3/uL 4.1-10.9 ALESSANDRO ([facility] NORMAL RANGES Age WBC RBC [...] HCT IS 5% LESS SOURCE FOR DATA: Nevolution DYN 1800 OPERATION MANUAL( AUTOMATED BLOOD COUNTS [...] >32 mL/min Normal HGB 14.1 g/dL 12.0-18.0 [facility] ([facility] NORMAL RANGES Age WBC [...] HCT IS 5% LESS SOURCE FOR DATA: Grupanya 1800 OPERATION MANUAL( AUTOMATED BLOOD COUNTS AND [...] >32 mL/min Normal HCT 42.0 % 37.0-51.0 [facility] NORMAL RANGES Age WBC [...] >32 mL/min Normal RBC 4.32 10E6/uL 4.20-6.30 [facility] NORMAL RANGES Age WBC RBC [...] HCT IS 5% LESS SOURCE FOR DATA: Grupanya 1800 OPERATION MANUAL( AUTOMATED BLOOD COUNTS AND [...] MCV 97.2 fL 80.0-97.0 Above high normal [facility] ([facility] NORMAL RANGES Age [...] HCT IS 5% LESS SOURCE FOR DATA: Grupanya 1800 OPERATION MANUAL( AUTOMATED BLOOD COUNTS AND [...] MCH 32.6 pg 26.0-32.0 Above high normal [facility] ([facility] NORMAL RANGES [...] HCT IS 5% LESS SOURCE FOR DATA: Grupanya 1800 OPERATION MANUAL( AUTOMATED BLOOD COUNTS AND [...] >32 mL/min Normal MCHC 33.6 g/dL 31.0-36.0 [facility] NORMAL [...] HCT IS 5% LESS SOURCE FOR DATA: Grupanya 1800 OPERATION MANUAL( AUTOMATED BLOOD COUNTS AND [...] >32 mL/min Normal PLT 283 10E3/uL 140-440 [facility] ([facility] NORMAL RANGES Age WBC RBC [...] HCT IS 5% LESS SOURCE FOR DATA: Grupanya 1800 OPERATION MANUAL( AUTOMATED BLOOD COUNTS AND [...] HCT IS 5% LESS SOURCE FOR DATA: Grupanya 1800 OPERATION MANUAL( AUTOMATED BLOOD COUNTS AND [...] >32 mL/min Normal Lym% 23.7 % 10.0-58.5 [facility] ([facility] NORMAL [...] HCT IS 5% LESS SOURCE FOR DATA: Grupanya 1800 OPERATION MANUAL( AUTOMATED BLOOD COUNTS AND [...] mL/min Normal MXD% 8.8 % 0.1-24.0 [facility]ANDR[facility] NORMAL RANGES Age WBC [...] HCT IS 5% LESS SOURCE FOR DATA: Grupanya 1800 OPERATION MANUAL( AUTOMATED BLOOD COUNTS AND [...] >32 mL/min Normal Neut% 67.5 % 37.0-92.0 [facility] NORMAL RANGES Age WBC RBC [...] HCT IS 5% LESS SOURCE FOR DATA: Grupanya 1800 OPERATION MANUAL( AUTOMATED BLOOD COUNTS AND [...] >32 mL/min Normal Lym# 1.6 10E3/uL 0.6-4.1 NCLC ([facility] NORMAL RANGES Age WBC RBC [...] >32 mL/min Normal Neut# 4.4 % 2.0-7.8 [facility] NORMAL RANGES Age WBC [...] HCT IS 5% LESS SOURCE FOR DATA: Grupanya 1800 OPERATION MANUAL( AUTOMATED BLOOD COUNTS AND [...] >32 mL/min Normal MPV 9.6 fL 9.0-13.0 [facility] ([facility] NORMAL RANGES [...] HCT IS 5% LESS SOURCE FOR DATA: Grupanya 1800 OPERATION MANUAL( AUTOMATED BLOOD COUNTS AND [...] >32 mL/min Normal MXD# 0.6 10E3/uL 0.0-1.8 [facility] ([facility] NORMAL RANGES Age WBC RBC [...] HCT IS 5% LESS SOURCE FOR DATA: Grupanya 1800 OPERATION MANUAL( AUTOMATED BLOOD COUNTS AND [...] >32 mL/min Normal ID Date Data Source [id number] 09/19/2021 11:41:00 AM EST MEDENT ([facility] Name Value Range Interpretation Code Description Data Rosa rce(s) Supporting Document(s) Glu 116 mg/dL 70-110 Above high normal MEDENT ([facility] NORMAL RANGES [...] HCT IS 5% LESS SOURCE FOR DATA: Grupanya 1800 OPERATION MANUAL( AUTOMATED BLOOD COUNTS AND [...] HCT IS 5% LESS SOURCE FOR DATA: Grupanya 1800 OPERATION MANUAL( AUTOMATED BLOOD COUNTS AND [...] >32 mL/min Normal BUN 16 mg/dL 8-23 [facility] NORMAL RANGES Age WBC [...] HCT IS 5% LESS SOURCE FOR DATA: Grupanya 1800 OPERATION MANUAL( AUTOMATED BLOOD COUNTS AND [...] >32 mL/min Normal K 4.3 mmol/L 3.5-5.1 [facility] ([facility] NORMAL RANGES Age WBC RBC HGB [...] HCT IS 5% LESS SOURCE FOR DATA: Grupanya 1800 OPERATION MANUAL( AUTOMATED BLOOD COUNTS AND [...] >32 mL/min Normal Na 137 mmol/L 136-145 [facility] ([facility] NORMAL RANGES Age WBC RBC [...] above >32 mL/min Normal BUN/Creatinine Ratio 18.2 [facility] NCLC ([facility] NORMAL RANGES Age [...] HCT IS 5% LESS SOURCE FOR DATA: Grupanya 1800 OPERATION MANUAL( AUTOMATED BLOOD COUNTS AND [...] >32 mL/min Normal CA 9.8 mg/dL 8.6-10.2 [facility] ([facility] NORMAL [...] HCT IS 5% LESS SOURCE FOR DATA: Grupanya 1800 OPERATION MANUAL( AUTOMATED BLOOD COUNTS AND [...] HCT IS 5% LESS SOURCE FOR DATA: Grupanya 1800 OPERATION MANUAL( AUTOMATED BLOOD COUNTS AND [...] >32 mL/min Normal CL 100.2 mmol/L 98.0-107.0 [facility] ([facility] NORMAL RANGES Age WBC RBC [...] HCT IS 5% LESS SOURCE FOR DATA: Grupanya 1800 OPERATION MANUAL( AUTOMATED BLOOD COUNTS AND [...] HCT IS 5% LESS SOURCE FOR DATA: Grupanya 1800 OPERATION MANUAL( AUTOMATED BLOOD COUNTS AND [...] HCT IS 5% LESS SOURCE FOR DATA: Grupanya 1800 OPERATION MANUAL( AUTOMATED BLOOD COUNTS AND [...] HCT IS 5% LESS SOURCE FOR DATA: Grupanya 1800 OPERATION MANUAL( AUTOMATED BLOOD COUNTS AND [...] above >32 mL/min Normal A/G Ratio 2.0 [facility]ESSANDRO [facility] NORMAL RANGES Age WBC [...] HCT IS 5% LESS SOURCE FOR DATA: Grupanya 1800 OPERATION MANUAL( AUTOMATED BLOOD COUNTS AND [...] above >32 mL/min Normal Globulin 2.4 Calc [facility] NORMAL RANGES Age WBC [...] HCT IS 5% LESS SOURCE FOR DATA: Grupanya 1800 OPERATION MANUAL( AUTOMATED BLOOD COUNTS AND [...] mL/min Normal Ast (Sgot) 32 U/L 0-40 NCLC ([facility] NORMAL RANGES Age WBC RBC [...] >32 mL/min Normal Tbili 0.54 mg/dL 0.0-1.2 NCLC ([facility] NORMAL RANGES Age WBC RBC [...] HCT IS 5% LESS SOURCE FOR DATA: Grupanya 1800 OPERATION MANUAL( AUTOMATED BLOOD COUNTS AND [...] mL/min Normal Alt (SGPT) 25 U/L 0-41 [facility] ([facility] NORMAL RANGES Age WBC RBC [...] HCT IS 5% LESS SOURCE FOR DATA: Grupanya 1800 OPERATION MANUAL( AUTOMATED BLOOD COUNTS AND [...] >32 mL/min Normal Anion Gap 21 mmol/L [facility] ([facility] NORMAL [...] HCT IS 5% LESS SOURCE FOR DATA: Grupanya 1800 OPERATION MANUAL( AUTOMATED BLOOD COUNTS AND [...] HCT IS 5% LESS SOURCE FOR DATA: Grupanya 1800 OPERATION MANUAL( AUTOMATED BLOOD COUNTS AND [...] HCT IS 5% LESS SOURCE FOR DATA: Grupanya 1800 OPERATION MANUAL( AUTOMATED BLOOD COUNTS AND [...] and above >32 mL/min Normal eGFR Non-Afr. Bangladeshi 92 # [facility] ([facility] [...] HCT IS 5% LESS SOURCE FOR DATA: Grupanya 1800 OPERATION MANUAL( AUTOMATED BLOOD COUNTS AND [...] >32 mL/min Normal ID Date Data Source [id number] 08/03/2021 11:04:00 PM EDT [facility] Name Value Range Interpretation Code Description Data Rosa rce(s) Supporting Document(s) SARS coronavirus 2 RNA [Presence] in Res piratory specimen by JAYA with probe detection NEGATIVE [place]OH This lab was ordered by [facility] a nd reported by [facility]. ID Date Data Source [id number] 08/01/2021 10:13:00 AM EDT MEDENT ([facility] Name Value Range Interpretation Code Description Data Rosa rce(s) Supporting Document(s) WBC 5.9 10E3/uL 4.1-10.9 MEDENT ([facility] NORMAL RANGES Age WBC RBC [...] YEARS EXCLUSIVE. RBC 4.20 10E6/uL 4.20-6.30 ALESSANDRO ([facility] NORMAL RANGES Age [...] HCT IS 5% LESS SOURCE FOR DATA: Grupanya 1800 OPERATION MANUAL( AUTOMATED BLOOD COUNTS AND [...] HCT IS 5% LESS SOURCE FOR DATA: Grupanya 1800 OPERATION MANUAL( AUTOMATED BLOOD COUNTS AND [...] 2-19 YEARS EXCLUSIVE. HGB 13.4 g/dL 12.0-18.0 [facility] ([facility] NORMAL [...] HCT IS 5% LESS SOURCE FOR DATA: Grupanya 1800 OPERATION MANUAL( AUTOMATED BLOOD COUNTS AND [...] HCT IS 5% LESS SOURCE FOR DATA: Grupanya 1800 OPERATION MANUAL( AUTOMATED BLOOD COUNTS AND [...] YEARS EXCLUSIVE. MCH 31.9 pg 26.0-32.0 [facility] ([facility] NORMAL RANGES Age WBC RBC [...] HCT IS 5% LESS SOURCE FOR DATA: Grupanya 1800 OPERATION MANUAL( AUTOMATED BLOOD COUNTS AND [...] 2-19 YEARS EXCLUSIVE. RDW-CV 12.2 % 11.5-14.5 [facility] ([facility] NORMAL RANGES [...] HCT IS 5% LESS SOURCE FOR DATA: Grupanya 1800 OPERATION MANUAL( AUTOMATED BLOOD COUNTS AND [...] 2-19 YEARS EXCLUSIVE. PLT 247 10E3/uL 140-440 [facility] ([facility] NORMAL RANGES Age WBC RBC [...] HCT IS 5% LESS SOURCE FOR DATA: Grupanya 1800 OPERATION MANUAL( AUTOMATED BLOOD COUNTS AND [...] HCT IS 5% LESS SOURCE FOR DATA: Grupanya 1800 OPERATION MANUAL( AUTOMATED BLOOD COUNTS AND [...] 2-19 YEARS EXCLUSIVE. MXD% 6.9 % 0.1-24.0 [facility] ([facility] NORMAL [...] HCT IS 5% LESS SOURCE FOR DATA: Grupanya 1800 OPERATION MANUAL( AUTOMATED BLOOD COUNTS AND [...] HCT IS 5% LESS SOURCE FOR DATA: Grupanya 1800 OPERATION MANUAL( AUTOMATED BLOOD COUNTS AND [...] YEARS EXCLUSIVE. Lym% 27.5 % 10.0-58.5 ALESSANDRO ([facility] NORMAL [...] HCT IS 5% LESS SOURCE FOR DATA: Grupanya 1800 OPERATION MANUAL( AUTOMATED BLOOD COUNTS AND [...] 2-19 YEARS EXCLUSIVE. Lym# 1.6 10E3/uL 0.6-4.1 [facility] ([facility] NORMAL RANGES Age WBC RBC [...] HCT IS 5% LESS SOURCE FOR DATA: Grupanya 1800 OPERATION MANUAL( AUTOMATED BLOOD COUNTS AND [...] HCT IS 5% LESS SOURCE FOR DATA: Grupanya 1800 OPERATION MANUAL( AUTOMATED BLOOD COUNTS AND [...] 2-19 YEARS EXCLUSIVE. MXD# 0.4 10E3/uL 0.0-1.8 [facility] ([facility] NORMAL RANGES Age WBC RBC HGB [...] HCT IS 5% LESS SOURCE FOR DATA: Grupanya 1800 OPERATION MANUAL( AUTOMATED BLOOD COUNTS AND [...] 2-19 YEARS EXCLUSIVE. MPV 9.4 fL 9.0-13.0 [facility] ([facility] NORMAL RANGES [...] HCT IS 5% LESS SOURCE FOR DATA: Grupanya 1800 OPERATION MANUAL( AUTOMATED BLOOD COUNTS AND [...] 2-19 YEARS EXCLUSIVE. ID Date Data Source [id number] 08/01/2021 10:13:00 AM EDT MEDENT ([facility] Name Value Range Interpretation [...] HCT IS 5% LESS SOURCE FOR DATA: Grupanya 1800 OPERATION MANUAL( AUTOMATED BLOOD COUNTS AND [...] HCT IS 5% LESS SOURCE FOR DATA: Grupanya 1800 OPERATION MANUAL( AUTOMATED BLOOD COUNTS AND [...] HCT IS 5% LESS SOURCE FOR DATA: Grupanya 1800 OPERATION MANUAL( AUTOMATED BLOOD COUNTS AND [...] 2-19 YEARS EXCLUSIVE. LDL_C 127 Calc 75-129 [facility] NORMAL RANGES Age WBC RBC [...] HCT IS 5% LESS SOURCE FOR DATA: Grupanya 1800 OPERATION MANUAL( AUTOMATED BLOOD COUNTS AND [...] 2-19 YEARS EXCLUSIVE. Cho/HDL Ratio 3.6 Calc NCLC ([facility] NORMAL RANGES Age WBC RBC HGB [...] HCT IS 5% LESS SOURCE FOR DATA: Grupanya 1800 OPERATION MANUAL( AUTOMATED BLOOD COUNTS AND [...] 2-19 YEARS EXCLUSIVE. ID Date Data Source [id number] 08/01/2021 10:13:00 AM EDT MED[facility] (Famil y [...] HCT IS 5% LESS SOURCE FOR DATA: Grupanya 1800 OPERATION MANUAL( AUTOMATED BLOOD COUNTS AND [...] 2-19 YEARS EXCLUSIVE. BUN 10 mg/dL 8-23 [facility] NORMAL RANGES Age WBC RBC [...] HCT IS 5% LESS SOURCE FOR DATA: Grupanya 1800 OPERATION MANUAL( AUTOMATED BLOOD COUNTS AND [...] YEARS EXCLUSIVE. BUN/Creatinine Ratio 12.9 CALC [facility]ENT ([facility] NORMAL RANGES Age [...] HCT IS 5% LESS SOURCE FOR DATA: Grupanya 1800 OPERATION MANUAL( AUTOMATED BLOOD COUNTS AND [...] 2-19 YEARS EXCLUSIVE. Na 139 mmol/L 136-145 [facility] ([facility] NORMAL RANGES Age WBC RBC [...] 2-19 YEARS EXCLUSIVE. CL 104.0 mmol/L 98.0-107.0 [facility] ([facility] NORMAL RANGES [...] HCT IS 5% LESS SOURCE FOR DATA: Grupanya 1800 OPERATION MANUAL( AUTOMATED BLOOD COUNTS AND [...] HCT IS 5% LESS SOURCE FOR DATA: Grupanya 1800 OPERATION MANUAL( AUTOMATED BLOOD COUNTS AND [...] HCT IS 5% LESS SOURCE FOR DATA: Nevolution DYN 1800 OPERATION MANUAL( AUTOMATED BLOOD COUNTS [...] 2-19 YEARS EXCLUSIVE. TP 6.9 g/dL 6.6-8.7 [facility] NORMAL [...] HCT IS 5% LESS SOURCE FOR DATA: Grupanya 1800 OPERATION MANUAL( AUTOMATED BLOOD COUNTS AND [...] HCT IS 5% LESS SOURCE FOR DATA: Grupanya 1800 OPERATION MANUAL( AUTOMATED BLOOD COUNTS AND [...] 2-19 YEARS EXCLUSIVE. Alb 4.3 g/dL 3.5-5.2 [facility] ([facility] NORMAL [...] HCT IS 5% LESS SOURCE FOR DATA: Grupanya 1800 OPERATION MANUAL( AUTOMATED BLOOD COUNTS AND [...] HCT IS 5% LESS SOURCE FOR DATA: Grupanya 1800 OPERATION MANUAL( AUTOMATED BLOOD COUNTS AND [...] YEARS EXCLUSIVE. A/G Ratio 1.7 CALC [facility] ([facility] NORMAL RANGES Age WBC RBC [...] HCT IS 5% LESS SOURCE FOR DATA: Grupanya 1800 OPERATION MANUAL( AUTOMATED BLOOD COUNTS AND [...] HCT IS 5% LESS SOURCE FOR DATA: Nevolution DYN 1800 OPERATION MANUAL( AUTOMATED BLOOD COUNTS [...] HCT IS 5% LESS SOURCE FOR DATA: Grupanya 1800 OPERATION MANUAL( AUTOMATED BLOOD COUNTS AND [...] (Sgot) 54 U/L 0-40 Above high normal [facility] ([facility] NORMAL RANGES [...] HCT IS 5% LESS SOURCE FOR DATA: Grupanya 1800 OPERATION MANUAL( AUTOMATED BLOOD COUNTS AND [...] HCT IS 5% LESS SOURCE FOR DATA: Grupanya 1800 OPERATION MANUAL( AUTOMATED BLOOD COUNTS AND [...] HCT IS 5% LESS SOURCE FOR DATA: Grupanya 1800 OPERATION MANUAL( AUTOMATED BLOOD COUNTS AND [...] YEARS EXCLUSIVE. Anion Gap 20 mmol/L [facility] ([facility] NORMAL RANGES Age WBC [...] HCT IS 5% LESS SOURCE FOR DATA: Grupanya 1800 OPERATION MANUAL( AUTOMATED BLOOD COUNTS AND [...] INDIVIDUALA AGED 2-19 YEARS EXCLUSIVE. eGFR Non-Afr. Bangladeshi 96 # [facility] ([facility] [...] HCT IS 5% LESS SOURCE FOR DATA: Nevolution DYN 1800 OPERATION MANUAL( AUTOMATED BLOOD COUNTS [...] HCT IS 5% LESS SOURCE FOR DATA: Grupanya 1800 OPERATION MANUAL( AUTOMATED BLOOD COUNTS AND [...] 2-19 YEARS EXCLUSIVE. ID Date Data Source [id number] 03/10/2021 10:09:00 AM EDT [facility] ([facility] Name Value Range Interpretation Code Description Data Rosa rce(s) Supporting Document(s) Glu 123 mg/dL 70-110 Above high normal MEDJUVENAL ([facility] CHRONIC KIDNEY DISEASE STAGING [...] mL/min Normal BUN 10 mg/dL 8- [facility] ([facility] CHRONIC KIDNEY DISEASE STAGING PER [...] mL/min Normal Creat 0.8 mg/dL 0.7-1.2 MED[facility]NAL ([facility], [...] mL/min Normal BUN/Creatinine Ratio 12.1 CALC [facility] ([facility] CHRONIC KIDNEY DISEASE [...] mL/min Normal Na 136 mmol/L 136-145 [facility] ([facility] CHRONIC KIDNEY DISEASE STAGING [...] mL/min Normal K 3.9 mmol/L 3.5-5.1 [facility] ([facility] CHRONIC KIDNEY DISEASE STAGING [...] 21.7 mmol/L 22.0-29.0 Below low normal [facility] ([facility] CHRONIC KIDNEY [...] mL/min Normal CL 99.9 mmol/L 98.0-107.0 [facility] ([facility] CHRONIC KIDNEY DISEASE [...] mL/min Normal CA 9.1 mg/dL 8.6-10.2 [facility] ([facility] CHRONIC KIDNEY [...] mL/min Normal TP 7.1 g/dL 6.6-8.7 [facility] ([facility] CHRONIC KIDNEY [...] mL/min Normal Alb 4.4 g/dL 3.5-5.2 [facility] ([facility] CHRONIC [...] >32 mL/min Normal Globulin 2.7 CALC [facility]JUVENAL ([facility] CHRONIC [...] mL/min Normal A/G Ratio 1.6 CALC [facility] ([facility] CHRONIC KIDNEY DISEASE STAGING PER [...] 78 U/L 0-41 Above high normal [facility] ([facility] CHRONIC KIDNEY [...] mL/min Normal Osmolality-Calculated 273.1 CALC MED ENT ([facility] CHRONIC KIDNEY [...] mL/min Normal Tbili 1.20 mg/dL 0.0-1.2 [facility] ([facility] CHRONIC KIDNEY DISEASE STAGING PER [...] 105 U/L 0-40 Above high normal [facility] ([facility] CHRONIC KIDNEY [...] mL/min Normal Anion Gap 19 mmol/L [facility] ([facility] CHRONIC KIDNEY DISEASE STAGING PER [...] mL/min Normal eGFR 112 # MEDJUVENAL ( [facility] CHRONIC KIDNEY [...] and above >32 mL/min Normal eGFR Non-Afr. Bangladeshi 96 # MEDJUVENAL ([facility] CHRONIC KIDNEY [...] >32 mL/min Normal ID Date Data Source [id number] 02/07/2021 10:40:00 AM EDT ALESSANDRO ([facility] Name Value Range Interpretation [...] Trig 580 mg/dL 35-200 Above high normal [facility] ([facility] CHRONIC KIDNEY DISEASE STAGING [...] YEARS EXCLUSIVE. Cho/HDL Ratio 8.0 Calc [facility] ([facility] CHRONIC KIDNEY DISEASE STAGING [...] Abnormal (applies to non -numeric results) ALESSANDRO ([facility] CHRONIC KIDNEY [...] 2-19 YEARS EXCLUSIVE. ID Date Data Source [id number] 02/07/2021 10:40:00 AM EDT AL[facility]ANDRO ([facility] Name Value Range Interpretation [...] 2-19 YEARS EXCLUSIVE. BUN 11 mg/dL 8-23 [facility] ([facility] CHRONIC KIDNEY [...] YEARS EXCLUSIVE. Creat 0.8 mg/dL 0.7-1.2 [facility] ([facility] CHRONIC KIDNEY [...] YEARS EXCLUSIVE. BUN/Creatinine Ratio 15.0 CALC [facility] ([facility] CHRONIC KIDNEY DISEASE [...] EXCLUSIVE. Na 136 mmol/L 136-145 [facility] ([facility] CHRONIC KIDNEY DISEASE [...] YEARS EXCLUSIVE. Alb 4.3 g/dL 3.5-5.2 [facility] ([facility] CHRONIC [...] YEARS EXCLUSIVE. Anion Gap 19 mmol/L [facility]ANDRO ([facility], [...] INDIVIDUALA AGED 2-19 YEARS EXCLUSIVE. eGFR Non-Afr. Bangladeshi 96 # [facility] ([facility] [...] 2-19 YEARS EXCLUSIVE. ID Date Data Source [id number] 02/07/2021 10:39:00 AM EDT MEDJU[facility]NAL ([facility] Name Value Range Interpretation Code Description Data Rosa rce(s) Supporting Document(s) Amylase [Enzymatic activity/volume] in Serum or Plasma 51 U/L 31- 110 [facility] ([facility] Lipoprotein lipase [Enzymatic activity/volume] in Serum or Plasm a 56 U/L 13-78 [facility] ([facility] ID Date Data Source [id number] 11/17/2020 03:03:47 PM [facility] -REPORT:PROCEDURE: XR SCOLIOSIS SERIESDA TE AND TIME: 11/17/2020 11:03 AM ESTHISTORY: Back pain.COMPARISON: None prior study from October 05, 2015.TECHNIQUE: 6 views of the thoracic and lumbar spine are submitted forreview to comprise a scoliosis series.FINDINGS: There is dextroscoliosis of the thoracolumbar spine. Alignmentis otherwise grossly normal. No acute fractures are present. There ismultilevel jdvy-hd-cwirnqgd degenerative disc disease within the lumbarspine. There is also mild multilevel degenerative disc disease withinthe thoracic spine. The patient is status post prior anterior andposterior fusion within the cervical spine. The soft tissues are grosslynormal.IMPRESSION:Dextroscoliosis.Multilevel degenerative disc disease.DWS:[id number] SIGNATURE: Manjit Felton MD Name Value Range Interpretation Code Description Data Rosa rce(s) Supporting Document(s) ID Date Data Source [id number] 11/17/2020 12:07:19 PM EST [facility] Name Value Range Interpretation Code Description Data Rosa rce(s) Supporting Document(s) Progress Note [facility]ices EPREQz5yEhKKJbOb35/FXTecYCKgb3DbTZhgFXj3PDcyGLFfT9LrOWM1pB5xDOU6CTlQXnTdOtEsZjGh [facility] [file] /4DD63dJ6tEhrUej/Mr/1UV87GlPLKSSqNpowBz2L9c1oLwq4sR7T5szint++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+dfOhLXGvSW3iS4Ek IoaJWvxTC4FzC/rpmOipbO4a1tE/R/u/2EfKySbMry kp9Z/5MT+rVXtvTIiUfWje6t70i0ukk2HxMoC1WjmIwynaBmmuT/FtCBrz/U2C8NxIs0k26LSY6cJ7TJ yJwMofGrwCiHt8JJQ3ma+qurxC+2cZ7UshxziqLbM/fS13lOGlZS2NIbSr5b+rG5Mj0W0zR/LPjjOT5f N6+sA33mAydDhWIsdPmZ7vM2u79t3wuaRVhy3VJpH/ hh0V9WyuW7eybYp5bK4e2F65Eux8jXR+czRrOVMLKj+95B86n8rYocSZbDpe3DHK3qj4IbHIBlXEepca EzUzrSEuOiYSNrf9IxAQvvQOi9WWenCZHiL3S1sWLlDBFuOI5LLHNtUC7DJHGtvpOsNvYuDIEEIoEeNF BnCaTen6YqY5DiWMJsMLRIHYljZCPaF62sKHygPl21 QXxcCTXrYpJdLIw4Oi4EAgYmUXVsQ52auSPwpSDiEANeOFESZTbnXHLzK0nlg9GyTTi8EK1XAU0MvmPa b9PvpfCjK2poB8CRTL9YKKNpX3SYJ2WuE4auRzNpe6ZmX1yaTtVlp9XsDd7UIoIaKw1LPcDyCN6dlt8W QSVnCWZoOknDZgBqZYolBqyaiWNjXU8YrQR7NXHdH5 9fPLFkWBGnY8KzGBA1Qt5+WJypFJX9bdIxcA1SKCOaiNgJnbWMsj2A/A/eLZx5cr25KrmFORu1ZRC+iQ +vVxXVt8KF4X1vzvC6M8aK5PF7nKUohm8XRGpHF747ez79oa/17JYopiY5kEPIoH0fPNaEQg5e0wrObO ODLFWcwXZKLKGAQsmlfFR8jnYYZfD6XH5FXPThB8n1 [file] AgICAgICAgICAgICAgICAgICAgICAgICAgICAgICAg ICAgICAgICAgICAgICAgICAgICAgICAgICAgDQogICAgICAgICAgICAgICAgICAgICAgICAgICAgICAg ICAgICAgICAgICAgICAgICAgICAgICAgICAgICAgICAgICAgICAgICAgICAgICAgICAgICAgICAgICAg ICAgICAgICAgDQogICAgICAgICAgICAgICAgICAgIC AgICAgICAgICAgICAgICAgICAgICAgICAgICAgICAgICAgICAgICAgICAgICAgICAgICAgICAgICAgIC AgICAgICAgICAgICAgICAgICAgDQogICAgICAgICAgICAgICAgICAgICAgICAgICAgICAgICAgICAgIC AgICAgICAgICAgICAgICAgICAgICAgICAgICAgICAg ICAgICAgICAgICAgICAgICAgICAgICAgICAgICAgDQogICAgICAgICAgICAgICAgICAgICAgICAgICAg ICAgICAgICAgICAgICAgICAgICAgICAgICAgICAgICAgICAgICAgICAgICAgICAgICAgICAgICAgICAg ICAgICAgICAgICAgDQogICAgICAgICAgICAgICAgIC AgICAgICAgICAgICAgICAgICAgICAgICAgICAgICAgICAgICAgICAgICAgICAgICAgICAgICAgICAgIC AgICAgICAgICAgICAgICAgICAgICAgDQogICAgICAgICAgICAgICAgICAgICAgICAgICAgICAgICAgIC AgICAgICAgICAgICAgICAgICAgICAgICAgICAgICAg ICAgICAgICAgICAgICAgICAgICAgICAgICAgICAgICAgDQogICAgICAgICAgICAgICAgICAgICAgICAg ICAgICAgICAgICAgICAgICAgICAgICAgICAgICAgICAgICAgICAgICAgICAgICAgICAgICAgICAgICAg ICAgICAgICAgICAgICAgDQogICAgICAgICAgICAgIC AgICAgICAgICAgICAgICAgICAgICAgICAgICAgICAgICAgICAgICAgICAgICAgICAgICAgICAgICAgIC AgICAgICAgICAgICAgICAgICAgICAgICAgDQogICAgICAgICAgICAgICAgICAgICAgICAgICAgICAgIC AgICAgICAgICAgICAgICAgICAgICAgICAgICAgICAg DOUrQPPiBYUgWTKcNCAeZJHgUIAvPKSnSKLpPEHaBNFjIVUiWMb7F2zmGQZoDZGyZB6iJZm0Yi1+DQoN UuXkDKG4inOcwM8NBK0io8YhZGruUETpd4SyFRr7ME2ZMRYfNAzgRL6WXHrtbn0DNCRpEVVuaKTJt1jp JvMqLHZ7NUFbDvkvPK0UYPDtE3roxrUiNRXrOEMQLA vyNMZKVEzpNHXWMCFrRFMaNuXfDiWgOOGxTW5MUYQcE858qtXlJW3QAe7BUzKxUN2kzu5GJMXiWNJvVg mDKdv0VXhbUA1OcBDwhGB1YaOcQSIJZnAvE3haz1WrGQSmEPIQUNutBD5Za8VbkSUbLLj+Hy3IFN5dw2 NbVQe4WtMvSG4gsv5ZBGtJMaMqY3IxhCrmCQRbe8qy SVWuXE8jmPFhINB0VTfiOMsjUSFVULFvsVosDMPCMSWdxLCyUaMrPqDnIHIcTPafFSRHMLsQWrWbB3Or w5QfSiP5CHCtYlLhEHtoMPKtIcU1YF90nAdzSX8KVXAjYJGfQU94GYOaYFRpQd9GRj7BRgYqQU6pov2H BUIgLTAzZlvTPdu0FHmoPN9FmALyG7FzjFArn0dTVx IhY3RODBS0EKJmOh2UGLPpRqNxJFXoTYuyHF3yRCUoSFLWfUhaonT2QC1ZTX0aknNrQZ2YZlAeCd5dHz 8JApRkC8RoK3HuPIPgRNIMKGzpDP2CXXkbKJ0eZI4Jr1ZSoRIvyX0hep1PYDXuJBHhVjibph7LEmklS0 Q4eWycMXFaFGLdBLHDMPzpDB3XZMWsDQZ4HXD2ZBBs DGYPVuPmO53eOI9MW8Hmu73dWgG0PIGkLmKqJEyoMC98xVuizaYebSObjZhwJA6SNe1+DQplbmRvYmoN VesoQAQHWtBkLOISNuQsNTYyPMRgVLNuJqA4UaItBd2JFFVgTGLyRDZiTlAzHUCtNFJdYHvwNGHkKNLh JPG6YPQsNXTwTS4GSxLwBVWrAYV2TjLpHSOfQXZywz 2NFJQePFAcTJU1HfUaYKQxTPOqOBpgQDFoPWUeTiI9WGXpROBoLX0XXnBuOAHjCGY2DWYzKRZmLXWles 7WVCHrUOWvPIQzQEExGKZxWVVxXWbaEXObUWB0TIDjBDTrKMAxVE1TFySgYSRtJPt4YDWsAMNrIFJxka 0GUWQfOLDrYMDaHBXrGPLtUZFiQZbaCMKyKDZ2YdL2 ISRwBZKrDE9VRjGqCQDzPNj2QMIjNSInLLHcdb7LVWTeHXGiAMw9MFTcWYByOSVzUEsiPWOtYEKtIMc4 SFTwDXNyZW0UNqEnJIUeOTOsAJBwUTRgSMNnok0ESVEdEUAmXJR8YBKjHTFnFLQpGHkxVBOoIDEpNLK9 OTNzEADuFZ9NHoXdEABpQNN5KNSeIOMbGCVkip9ZYP ScBCDqJhK2RdPtUYAvJBLqXGklSAYzSIBhGCn6RODaURExHY5TCxKuRSBiRrHqYdMmBBMaZHRdzf5NHH CxVCNcLHL9VPEvSWJzKNOnGSdtJBJtQXD0ZnYkMSDjVVBiZZ0CPdQmINAnOcO5ZOKkZAUyIISrpc8FKE KdXUWqHZFuMtMsLMPlIEZwRAhqMPKuTPP3KKy5NLTm FAZuXN6UItIjUVPuTtQkYtUbYTHuAZDuga6IZGNfSVHvPcC8WOAgNCUkYKNwFJeeGSDdKLP6BrdiLEUl OVEkPF3ZOhOiNYOrLjx8WnRjLVTrZIYzrx3UXDOiSLTfCdp1BCYpXKMkVUUkCNneGUAeNIS4JfxcOZOd ZKEnVO9EBaQmYZSdSyj1HjBoAGCcFKClat9OXQIpZD CkOJE7HPXvLEZwQIZiCVqvAANwJFPbAHcxNGJvCSIoGX7YCyCuLTNuLVXdHELfQTIjAGSyjv7QSXWpDM J7PxWnKxNaYNVaBVErHYuhNYPyYNLvBvB7LLSzJQLrTT1UZaIpNPEuDVW0EYDsGWNqGCHfkl6POBPuXX A9OyK3IQZnVANkBBApOLmpADIgNNK2IsL1DGEkHYEv TS8JXtGwZXDoNNZ4NXJeDYBjMZWnac0POATnLRY5ZEp1GPPbECPfGOJeEUv6ayOjxUDwGXg2QH6HH5Fx fqJyVVRBXq5Yy142BQMyWXTiLa3JL3exXd0eIKAkIFFURj0BOAw3WKPxNPIzOxK2QxJuUaLqUnFaOzXf VwIjHYU0WVEuSFG+ONi1GhFsFNCjPXjcQRFrQZDsSQ ErMfWqFxExIxz2XlFcQF7xAGAAGa6+EWifiNRwcXjiAMRBGgO1EjH3UDwgAFINWi1H ID Date Data Source [id number] 11/17/2020 12:07:14 PM EST [facility] Name Value Range Interpretation Code Description Data Rosa rce(s) Supporting Document(s) Progress Note [facility] rv[facility] NAIWVh1qWnIYAxGv64/AYEbyOBHnc0QdBKnvFHw0AKagWBKuF9OdZQF4kG2mYQD9HHkJTsKeOoHcJhLe lbm [file] MaWmthEdQmKQ5DTb7KInX2IOO3fVFpAa2DPbAeTkzBFnQwQB7NEXi= ID Date Data Source [id number] 11/10/2020 12:00:00 AM [facility] Elmer Kumar MD Patient Name: RIOS CORNEJO Date of : 1960[place] [address] Date of Exam: 11/10/2020#: Fax: [phone] EXAM: [...] cm high signal lesion within the right K70dkiallta which measured only 5 mm in 2015. [...] by: Dago Mason MD 11/10/2020 2:24 PM [facility] ( & Jayashree)VrevaV/jmcThank you for referring ANA CORNEJO to our office. Electronically Signed - VENUSAD 11/10/20 14:55 Name Value Range Interpretation Code Description Data Rosa rce(s) Supporting Document(s) ID Date Data Source [id number] 11/10/2020 12:00:00 AM [facility] Elmer Kumar MD Patient Name: ANA COR[address] Date of : 1960[place] [address] Date of Exam: 11/10/2020#: Fax: [phone] EXAM: [...] rce(s) Supporting Document(s) ID Date Data Source [id number] 10/11/2020 12:59:36 PM EST [facility] Name Value Range Interpretation Code Description Data Rosa rce(s) Supporting Document(s) Progress Note [facility] rvices DPEBTp7oDaUQWoUb27/RJBfvZRBhh3JuVRnqCDd3KFsoEMHlE1XvZYB8oF1vFZS4LBfZYmAiDkNkKsX2 lbm [file] ICAgICAgICAgICAgICAgICAgICAgICAgICAgICAgICAgICAgICAgICAgICAgICAgICAgICAgICAgICAg ICAgICAgICAgICAgICAgICAgICAgICAgICAgICAgICANCiAgICAgICAgICAgICAgICAgICAgICAgICAg ICAgICAgICAgICAgICAgICAgICAgICAgICAgICAgIC AgICAgICAgICAgICAgICAgICAgICAgICAgICAgICAgICAgICAgICAgICANCiAgICAgICAgICAgICAgIC AgICAgICAgICAgICAgICAgICAgICAgICAgICAgICAgICAgICAgICAgICAgICAgICAgICAgICAgICAgIC AgICAgICAgICAgICAgICAgICAgICAgICANCiAgICAg ICAgICAgICAgICAgICAgICAgICAgICAgICAgICAgICAgICAgICAgICAgICAgICAgICAgICAgICAgICAg ICAgICAgICAgICAgICAgICAgICAgICAgICAgICAgICAgICANCiAgICAgICAgICAgICAgICAgICAgICAg ICAgICAgICAgICAgICAgICAgICAgICAgICAgICAgIC AgICAgICAgICAgICAgICAgICAgICAgICAgICAgICAgICAgICAgICAgICAgICANCiAgICAgICAgICAgIC AgICAgICAgICAgICAgICAgICAgICAgICAgICAgICAgICAgICAgICAgICAgICAgICAgICAgICAgICAgIC AgICAgICAgICAgICAgICAgICAgICAgICAgICANCiAg ICAgICAgICAgICAgICAgICAgICAgICAgICAgICAgICAgICAgICAgICAgICAgICAgICAgICAgICAgICAg ICAgICAgICAgICAgICAgICAgICAgICAgICAgICAgICAgICAgICANCiAgICAgICAgICAgICAgICAgICAg ICAgICAgICAgICAgICAgICAgICAgICAgICAgICAgIC AgICAgICAgICAgICAgICAgICAgICAgICAgICAgICAgICAgICAgICAgICAgICAgICANCiAgICAgICAgIC AgICAgICAgICAgICAgICAgICAgICAgICAgICAgICAgICAgICAgICAgICAgICAgICAgICAgICAgICAgIC AgICAgICAgICAgICAgICAgICAgICAgICAgICAgICAN CiAgICAgICAgICAgICAgICAgICAgICAgICAgICAgICAgICAgICAgICAgICAgICAgICAgICAgICAgICAg ICAgICAgICAgICAgICAgICAgICAgICAgICAgICAgICAgICAgICAgICANCjw/vMFsW3hceTClyaJ1L3zu Uh3JYd5AVD7ic1UlRKUnCSgsmlQoSfzTNeEeSDZyZq lFXhx6JYkpGO8GmUKjS5FvN8RwMSrkNO3ONCGkEKWkmXWwDIOyGIDqTqA8YUJeWPffPO8SbWRsEGidBF RyJQJpEvLaKEXdVSNaBWFbTQKnKSEOCQ5UJkWaC9WhlM97QUMHNg9+SMtzmcYbDqbWNmO3HYPos0ZnES z1QG2ZDBDfDeowr5MrACRzFZVFZQdiMW6LJUI6LXSu TSPwXz9SHYXpR404naDgJL6KGa5SZfJeLM8igw9ZTMXuPEXxYtiEXzz3YVqdCH6BxVPaMUbIbi1ekzUq qoSMg0ArqnAtrKBRsJTcnXTrMLIEQGJedYuiQQTuUUOrTTWoYcacNyPtMKBvEJurSPMXRGiXScMkW3Ci l7DnNcW4JAAnZqDxKFarVYLiTkV3SI50kVxuNT0QDK IuQSNoAA56ZNP3VIOcJz8PKj2KOnSdEO7zsz1YXJOkFHLyAfaKSda4WYfrTJ0CnQRfT8AcbSAjs0rQTv VyA1VHPXP0VTRgNk4UVJDkHhHmPKDiJNyxGU8zBDQlRHHFaYzlfiC5NO8TOW0xkvAeVM5MPxUiAs7rJz 1OWlBbQ4IqQ2NeXNQjIBFCFLhfDK0SNVxyYX8pDS9I s0BFfQPkeN5jup1IACQjUDMwHxpvxd5EVitjO6W5yYgiDSSsHminADQTINiuLP2JLPYgFIF3RQUdIDIn GOJXVoXiL50xDU1JC3Yuk62mDnN7IFBnNlIxPQfnLG18fYxvifOkgKNsdImtSW6TLw1+DQplbmRvYmoN GeiiEKZNHpSmSGBDWhWiRQTfSZFzLRQuThT2KqSuVn 2SOTYnUYIzFEVnQyExGRHqFGFgEDrhLVEcUINnTKh6CQEzKZPyUG6HKiZvNDTpVAFmGdZxTPQeXUUtia 0EQQJjDJXkCYL5ArQkLOYbUGQzUErnNGFqYANkWov3GZQoVCJuAM3HZlDjGODnMOPeRDOiVPMlLYJyxo 4LEPPyOTQnKJE3GnGfWQClAOCdEKnbULAnXCJ7CGDc DDFyAXGkIS3BGqMgOQUkGGL1AWVlEBClQHLgpi9IDBGoBGSpQrH5UEIcLWDaTNOiTBboZBFtDOV3CwWn HXPdASUjQL8VYnGrBJYdPJd8LolpQTMsHTHrxp6VONIvYGIgNMz7EeXrKDAaSLQaUMfwNEYwBQC1UDg4 CKYnQHLlQL2HEaDkHHEeNBdhVcpyUKXeVZGykj5JFI VuDMZzVWQiWzFqBOVaSEVsNIemVKCiZDNiCpZ6BIVlPOReVF8IMxFuTTBuDMW6XSrdKEPlUTMqls8OSJ IzLFVgIZz5SsGyPNXeWFFdSBkbSADhVHAfVUsnVJJvUJReWN5MVdWuNIWiZiSxPDJnUURmDEXdeu1OSU WjVSDbQdTlISDuIPPbRGMyYVjcWXAoSTFwMfv8YRLv YQUmNM9XLaSxWXNuQjQ4FmPuQNZjDORnam8WOWViYLYqBtyyPZPsWIXuNQGqHRmvSXLfNIS9QLc4FVCj XZNdGG6HWoXoFVHnNyYbBgDoOBSwLJErmz0XUILoAKMiCVToOoQrOSHoGKVnVZyjLXSyMNW4Mdn5IHOi FTJcXR8PRbCjOSWfZbNfLvFcTCWfVZWqea8NGCGzHX PnIcLiIbJmPBJeEZGsQKruYDBmTWF5Qtg3KWMpJSAeJH6DPgEeITOcLif9QpDqSCXmCXTsya3IHMXjNV KgLCi5CYLlHVHwPFOiUMynLMHmDGWuUEB9MVTgHCNcMY0DKpBjQFJfVORzQCioRWNhIJGuya8AXYYiOK L6XVY6SoPsYBDrKYGuXHoqMCUwYWBwKPCpHWCdYUJd ML5CZqIoIKLcHSTdTjmlOBLiOKPsgp1BDIUoBCO0LiQ0HIPbNOUbECOwGHxnZEYtJQJgZuRcIJGkTYJz ZV1ROdRqPDjmXOLNWgc4LCnlZ9c3XRN7Kk0AS4Fpw7FzICRfEJOLESqwEH5pfxUsDSCrSa6IS6pNMxbn IDBiPIvhTkNvAhF7ALW1JDUgVItoMVXoIMZsGFgoPY 6zVAAcLiU9T6LaSEFlVFG3RVY3GYQsD5M4O3E8ZYSxM4T0VtYxSR0JLi2BBcG9KMX7zDGiQa4YVXB2DZ GTPkEsJW0IQAs= ID Date Data Source [id number] 10/11/2020 12:42:24 PM EST [facility] Name Value Range Interpretation Code Description Data Rosa rce(s) Supporting Document(s) Progress Note [facility] EMUXQh6sXuUJBeJu95/RRUtfDNBoe4LeKKkrBIa9INhqOWNrS7GiXOQ9xC6lZUC6EEzPIqGcUvDpMsU4 lbm [file] i4yiquAEX+/xGx3/Qffro/ZcMd+yGl5xmlJxdg [file] XnEfI9QIGwCZT8LLweIRC8XdV+MZ5oMBr+Lv4Yu1BdggT2zoBwTJubKIC1Wz0PCAMEE8UCUq== ID Date Data Source [id number] 10/07/2020 08:36:00 AM EST [facility] ([facility] Name Value Range Interpretation Code Description Data Rosa rce(s) Supporting Document(s) [facility] Laboratory test result [facility] ([facility] ID Date Data Source [id number] 09/20/2020 08:37:00 AM EST [facility] Name Value Range Interpretation Code Description Data Rosa rce(s) Supporting Document(s) Progress Note [facility] ZSFASj5eYmCVLiVf42/VJGmtHRBbf4UuAJlkUYh1JXdfRBWkU4TsKGM3sH9cQXK0CHuQJhUiDgZsCgG4 lbm XqAhePLnDlIYObOhkCMlXdSNotIrgubIOiMC8PqKQ2ZFHfA34nRXWbBQXeF0OnZBA2HrX+Gc0GMUZsxH LgFN7FOtaRgC6ue2i1TF1m1B+wvuGN2ep6pKc4UHBWlia2mjRPlhxoSfk7BYjgz3vnVFlfw+lPLXnvpU SnJ8bBq1/YVtfvM38WVnMV80PtZaswv//pPgtD3/dd +d/qf3XydeN1u/2hi27N0rWr1i+qzGrtL0xFocX/yM385y1/+Oan0s1dncfz6vLMYuBDnj/y4/iyi6Pv 7iRju+wuqqg0gRn+4716s7Bu6MFzL+Rosy//KBl85hh6tsvtvHqkYq3f5IfY8ELh59SH/7ezaNK85GJvj [file] 4+XAwueKMssDjxRATCVuB0KNM8TVvbMTGMYz6I Procedure Social History Code Duration Value Status Description Data Source(s ) Alcohol intake 11/17/2020 12:00:00 AM EST Current drinker of al cohol (finding) [facility] Tobacco use and exposure 10/11/2020 12:00:00 AM EST Never used [facility] Tobacco smoking status [facility] 10/11/2020 12:00:00 AM EST Never smoker [facility] Alcohol intake 10/11/2020 12:00:00 AM EST Current drinker of al cohol (finding) [facility] Vital Signs ID Date Data Source UNK Name Value Range Interpretation Code Description Data Source(s) Systolic blood pressure 142 mm[Hg] 142 mm[Hg] M JOSÉ MIGUEL ([facility] Diastolic blood pressure 94 mm[Hg] 94 mm[Hg] [facility] ([facility] Body temperature 98.0 [degF] 98.0 [degF] [facility] ([facility] Heart rate 88 /min 88 /min [facility] ([facility] Respiratory rate 18 /min 18 /min [facility] ( [facility] Body height 71 [in_i] 71 [in_i] [facility] ([facility] 5'11" Body weight 197.00 [lb_av] 197.00 [lb_av] MEDEN T ([facility] [place] body weight 172 [lb_av] 172 [lb_av] MEDEN T ([facility] Body mass index (BMI) [Ratio] 27.5 kg/m2 27.5 k g/m2 [facility] ([facility] Oxygen saturation in Arterial blood by Pulse oximetry 90 % 90 % [facility] ([facility] Systolic blood pressure 154 mm[Hg] 154 mm[Hg] M EDENT ([facility] ) Diastolic blood pressure 96 mm[Hg] 96 mm[Hg] [facility] ([facility]) Body temperature 98.8 [degF] 98.8 [degF] [facility] ([facility]) Body height 70 [in_i] 70 [in_i] [facility] ([facility]) 5'10" Body weight 200.25 [lb_av] 200.25 [lb_av] MEDEN T ([facility]) Body mass index (BMI) [Ratio] 28.7 kg/m2 28.7 k g/m2 [facility] ([facility]) [place] body weight 166 [lb_av] 166 [lb_av] MEDEN T ([facility]) Body weight 90.833 kg 90.833 kg [facility] ([facility]) Body surface area Derived from formula 2.09 m2 2.09 m2 [facility] ([facility]) [place] body weight 172 [lb_av] 172 [lb_av] MEDEN T ([facility] Body mass index (BMI) [Ratio] 28.0 kg/m2 28.0 k g/m2 [facility] ([facility] Systolic blood pressure 136 mm[Hg] 136 mm[Hg] M EDENT ([facility] Diastolic blood pressure 88 mm[Hg] 88 mm[Hg] [facility] ([facility] Body temperature 99.2 [degF] 99.2 [degF] [facility] ([facility] Heart rate 96 /min 96 /min [facility] ([facility] Respiratory rate 16 /min 16 /min [facility] ( [facility] Body height 71 [in_i] 71 [in_i] [facility] ([facility] 5'11" Body weight 201.00 [lb_av] 201.00 [lb_av] MEDEN T ([facility] Oxygen saturation in Arterial blood by Pulse oximetry 95 % 95 % [facility] ([facility] Body temperature 97.7 [degF] 97.7 [degF] [facility] [facility] Body height 71 [in_i] 71 [in_i] [facility] 5'11" Body weight 201.00 [...] /min MEDENT ( [facility] [place] body weight 172 [lb_av] 172 [lb_av] MEDEN T ([facility] Body mass index (BMI) [Ratio] 28.0 kg/m2 28.0 k g/m2 [facility] ([facility] Oxygen saturation in Arterial blood by Pulse oximetry 98 % 98 % [facility] ([facility] Respiratory rate 18 /min 18 /min MEDENT ( [facility] Body height 71 [in_i] 71 [in_i] [facility] ([facility] 5'11" [place] body weight 172 [lb_av] 172 [lb_av] MEDEN T ([facility] Body weight 198.00 [lb_av] 198.00 [lb_av] MEDEN T ([facility] Diastolic blood pressure 80 mm[Hg] 80 mm[Hg] MEDENT ([facility] Systolic blood pressure 124 mm[Hg] 124 mm[Hg] M EDENT ([facility] Body temperature 98.0 [degF] 98.0 [degF] MEDENT ([facility] Heart rate 100 [...] Body temperature 98.2 [degF] 98.2 [degF] MEDENT ([facility] Heart rate 92 /min 92 /min MEDENT ([facility] Body height 71 [in_i] 71 [in_i] [facility] ([facility] 5'11" Oxygen saturation in Arterial blood by Pulse oximetry 96 % 96 % MEDENT ([facility] Body weight 202.50 [lb_av] 202.50 [lb_av] MEDEN T ([facility] [place] body weight 172 [lb_av] 172 [lb_av] MEDEN T ([facility] Body mass index (BMI) [Ratio] 28.2 kg/m2 28.2 k g/m2 MED[facility] ([facility] Body height 71 [in_i] 71 [in_i] MEDENT ([facility] 5'11" Heart rate 96 /min 96 /min MEDENT ([facility] Body weight 199.00 [lb_av] 199.00 [lb_av] MEDEN T ([facility] Respiratory rate 20 /min 20 /min MEDENT ( [facility] Systolic blood pressure 124 mm[Hg] 124 mm[Hg] M EDENT ([facility] Diastolic blood pressure 88 mm[Hg] 88 mm[Hg] MEDENT ([facility] Body temperature 98.3 [degF] 98.3 [degF] MEDENT ([facility] [place] body weight 172 [lb_av] 172 [lb_av] MEDEN T ([facility] Body mass index (BMI) [Ratio] 27.8 kg/m2 27.8 k g/m2 ALESSANDRO ([facility] Oxygen saturation in Arterial blood by Pulse oximetry 97 % 97 % ALESSANDRO ([facility] ID Date Data Source [id number] 11/17/2020 12:07:19 PM EST [facility] Name Value Range Interpretation Code Description Data Source(s) WEIGHT 195 lb 195 lb [facility] HEIGHT 70 in 70 in [facility]
[2021-09-21 07:37] LABS: BASO % 0.1 % (0.0-1.0); EOS % 0.6 % (0.0-3.0); HEMATOCRIT 44.6 % (42.0-52.0); HEMOGLOBIN 14.5 g/dl (13.5-17.5); LYMPH # 1.9 10^3/uL (1.5-5.0); MEAN CORPUSCULAR HEMOGLOBIN 32.2 pg (27.0-33.0); MEAN CORPUSCULAR HGB CONC 32.5 g/dl (32.0-36.5); MEAN CORPUSCULAR VOLUME 98.9 fl (80.0-96.0); MONO # 0.4 10^3/uL (0.0-0.8); MONO % 6.5 % (2.0-8.0); NEUTROPHILS # 4.3 10^3/uL (1.5-8.5); NEUTROPHILS % 64.5 % (36.0-66.0); PLATELET COUNT, AUTOMATED 321 10^3/uL (150-450); RED BLOOD COUNT 4.51 10^6/uL (4.30-6.10); WHITE BLOOD COUNT 6.7 10^3/uL (4.0-10.0)
[2021-09-21 07:43] LABS: ALBUMIN 4.1 GM/DL (3.2-5.2); ALT/SGPT 42 U/L (12-78); BILIRUBIN,TOTAL 0.5 MG/DL (0.2-1.0); BLOOD UREA NITROGEN 14 MG/DL (7-18); CALCIUM LEVEL 9.9 MG/DL (8.8-10.2); CARBON DIOXIDE LEVEL 27 MEQ/L (21-32); CHLORIDE LEVEL 106 MEQ/L (98-107); CREATININE FOR GFR 0.93 MG/DL (0.70-1.30); GLOMERULAR FILTRATION RATE > 60.0 (>49); GLUCOSE, FASTING 148 MG/DL (70-100); POTASSIUM SERUM 3.6 MEQ/L (3.5-5.1); SODIUM LEVEL 140 MEQ/L (136-145); TOTAL PROTEIN 8.7 GM/DL (6.4-8.2)
[2021-09-21] MEDS: HYDROMORPHONE HCL 0.5 MG/ 0.5 ML SYRINGE (J1170 PER 1) IV PRN ×2 (07:45→09:16)
[2021-09-21] MEDS ORDERED: ISOVUE-370 76% 100ML VIAL As Ordered ONE (07:48)
--- NOTE | 2021-09-21 08:31 | REP ---
INDICATION: fall, Left sided back pain COMPARISON: None TECHNIQUE: Axial contrast enhanced images from the thoracic inlet to the upper abdomen with coronal and sagittal reformations using 75 ml Isovue 370 intravenous contrast material. This CT examination was performed using the following dose reduction techniques: Automated exposure control, adjustment of mA and/or kv according to the patient's size, and use of iterative reconstruction technique. FINDINGS: Bibasilar atelectasis (left greater than right) and small left pleural effusion are noted along with nondisplaced 6th through 9th posterior left rib fractures. No pneumothorax. Remainder of the lung walters are well aerated and clear. The mediastinum demonstrates normal thoracic aorta, pulmonary vasculature, and heart/pericardium. There is no evidence for mediastinal trauma/injury. Tracheobronchial tree is patent. No adenopathy. IMPRESSION: Nondisplaced left posterior 6th through 9th rib fractures with bibasilar atelectasis (left greater than right) and small left pleural effusion. <Electronically signed by Migel Bauer > 09/21/21 [id number]
--- NOTE | 2021-09-21 08:35 | REP ---
INDICATION: fall, Left sided back pain. COMPARISON: None TECHNIQUE: Axial contrast-enhanced images from the lung bases to the pubic symphysis using 100 cc Isovue 370 intravenous contrast material. Coronal and sagittal reformations obtained. This CT examination was performed using the following dose reduction techniques: Automated exposure control, adjustment of mA and/or kv according to the patient's size, and the use of iterative reconstruction technique. FINDINGS: Liver, spleen, pancreas, bilateral adrenal glands and kidneys are normal. There is no evidence for solid organ injury. The enteric system including stomach, small, and large bowel appears normal. No evidence for obstruction or acute inflammatory process. Normal terminal ileum and appendix are identified in the right lower quadrant. Scattered diverticula noted without acute diverticulitis. Pelvis demonstrates normal bladder and age-appropriate prostate/seminal vesicles. No ascites. No free air. No intraperitoneal or retroperitoneal adenopathy. Abdominal aorta and vasculature appear normal. Musculoskeletal structures of the abdomen and pelvis are intact and without acute osseous abnormality. Lung bases demonstrate bibasilar atelectasis (left greater than right) and small left pleural effusion along with nondisplaced posterior left 7th through 10th rib fractures. IMPRESSION: No acute abdominopelvic pathology appreciated. Lung base findings including nondisplaced left rib fractures. <Electronically signed by Migel Bauer > 09/21/21 [id number]
--- NOTE | 2021-09-21 08:36 | REPVR ---
PROCEDURE INFORMATION: Exam: CT Head Without Contrast Exam date and time: 09/21/2021 7:59 AM Age: 61 years old Clinical indication: Injury or trauma; Fall; Blunt trauma (contusions or hematomas) TECHNIQUE: Imaging protocol: Computed tomography of the head without contrast. Radiation optimization: All CT scans at this facility use at least one of these dose optimization techniques: automated exposure control; mA and/or kV adjustment per patient size (includes targeted exams where dose is matched to clinical indication); or iterative reconstruction. COMPARISON: MRI-Spine,Cervical without con 09/03/2017 10:33 AM FINDINGS: Brain: There is no acute intracranial hemorrhage or mass effect. Mild diffuse volume loss is within the range of normal for patient age. There are small vessel ischemic changes within the periventricular and subcortical white matter, but the normal calvillo/white matter delineation is maintained. Cerebral ventricles: No ventriculomegaly. Paranasal sinuses: Visualized sinuses are unremarkable. No fluid levels. Mastoid air cells: Visualized mastoid air cells are well aerated. Bones/joints: Unremarkable. No acute fracture. Soft tissues: Unremarkable. IMPRESSION: No acute hemorrhage or calvarial fracture. Electronically signed by: Muriel Walls On 09/21/2021 08:36:11 AM
[2021-09-21 08:40] LABS: RSV AMPLIFICATION NEGATIVE (NEGATIVE)
--- NOTE | 2021-09-21 08:55 | REPVR ---
PROCEDURE INFORMATION: Exam: CT Cervical Spine Without Contrast Exam date and time: 09/21/2021 7:59 AM Age: 61 years old Clinical indication: Injury or trauma; Fall; Blunt trauma TECHNIQUE: Imaging protocol: Computed tomography images of the cervical spine without contrast. Radiation optimization: All CT scans at this facility use at least one of these dose optimization techniques: automated exposure control; mA and/or kV adjustment per patient size (includes targeted exams where dose is matched to clinical indication); or iterative reconstruction. COMPARISON: MRI-Spine,Cervical without con 09/03/2017 10:33 AM FINDINGS: Bones/joints: Ventral fixation plate and screws noted at C3 and C4, with intervertebral spacer material. There are vertical rods with pedicle screws at C3, C4 and C6, with corresponding laminectomy defects. There is intervertebral spacer material at C4/5 and C5/6. Discs/Spinal canal/Neural foramina: At C6/7, disc osteophyte complex and facet hypertrophy contribute to moderate to severe right and moderate left neural foraminal narrowing. Lungs: Lung apices are normal. Soft tissues: Unremarkable. IMPRESSION: No acute fracture. Electronically signed by: Muriel Walls On 09/21/2021 08:54:46 AM
--- NOTE | 2021-09-21 13:23 | REPVR ---
PROCEDURE INFORMATION: Exam: MR Cervical Spine Without Contrast Exam date and time: 09/21/2021 1:06 PM Age: 61 years old Clinical indication: Neck pain; Additional info: Fall, right upper parasthesia TECHNIQUE: Imaging protocol: Multiplanar magnetic resonance images of the cervical spine without contrast. COMPARISON: CT Spine,cervical w/o contrast 09/21/2021 7:47 AM FINDINGS: Vertebrae: Ventral fixation plate and screws are noted at C3 and C4. There are vertical rods with pedicle screws at C3, C4 and C6. There are corresponding laminectomy changes. There is no fracture. Spinal cord: Artifact from metallic hardware limits evaluation. C2-C3: There is a shallow disc osteophyte complex. There is mild facet hypertrophy. There is severe bilateral neural foraminal narrowing. C3-C4: There are fusion changes with laminectomy. Metallic artifact limits evaluation. The spinal canal is patent. C4-C5: There are fusion changes with laminectomy. Metallic artifact limits evaluation. The spinal canal is patent. C5-C6: There are fusion changes with laminectomy. There is a disc osteophyte complex and facet hypertrophy. There is severe bilateral neural foraminal narrowing. C6-C7: There are fusion changes with laminectomy. There is a diffuse disc osteophyte complex. There is facet hypertrophy. There is severe bilateral neural foraminal narrowing. C7-T1: There is a shallow disc osteophyte complex. There is moderate right and mild left facet hypertrophy. There is moderate right neural foraminal narrowing. Soft tissues: Unremarkable. Vertebral arteries: Expected flow voids in the vertebral arteries. IMPRESSION: 1. Multilevel fusion changes. Metallic artifact limits evaluation. 2. Degenerative disc disease and spondylosis. At C2/3, C5/6 and C6/7, changes contribute to severe bilateral neural foraminal narrowing. Electronically signed by: Muriel Walls On 09/21/2021 13:23:19 PM
[2021-09-21] MEDS ORDERED: KETOROLAC 30 MG/ML 1ML VIAL IV ONE (14:00)
[2021-09-21] MEDS ORDERED: ACETAMINOPHEN TAB 650MG DOSE (2X325MG) PO PRN (14:20)
--- OUTSIDE RECORDS SUMMARY | 2021-09-21 15:36 | CCD ---
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 Name Role Phone Stacy, A Khalid Unavailable [phone] Stacy, A Khalid Unavailable [phone] Stacy, A Khalid Unavailable +[phone] Stacy, A Khalid Unavailable +[phone] Stacy, A Khalid Unavailable +[phone] Stacy, A Khalid Unavailable +[phone] Stacy, A Khalid Unavailable +[phone] Stacy, A Khalid Unavailable +[phone] Stacy, A Khalid Unavailable +[phone] Stacy, A Khalid Unavailable +[phone] Stacy, A Khalid Unavailable +[phone] Stacy, A Khalid Unavailable +[phone] Stacy, A Khalid Unavailable +[phone] Stacy, A Khalid Unavailable +[phone] Stacy, A Khalid Unavailable +[phone] Stacy, A Khalid Unavailable +[phone] Stacy, A Khalid Unavailable +[phone] Stacy, A Khalid Unavailable +[phone] Stacy, A Khalid Unavailable +[phone] Stacy, A Khalid Unavailable +[phone] Stacy, A Khalid Unavailable +[phone] Stacy, A Khalid Unavailable +[phone] Stacy, A Khalid Unavailable +[phone] Stacy, A Khalid Unavailable +[phone] Stacy, A Khalid Unavailable +[phone] Stacy, A Khalid Unavailable [phone] Stacy, A Khalid Unavailable +[phone] Stacy, A Khalid Unavailable [phone] Stacy, A Khalid Unavailable +[phone] Stacy, A Khalid Unavailable +[phone] Stacy, A Khalid Unavailable +[phone] Stacy, A Khalid Unavailable +[phone] Stacy, A Khalid Unavailable +[phone] Stacy, A Khalid Unavailable +[phone] Stacy, A Khalid Unavailable +[phone] Stacy, A Khalid Unavailable +[phone] Stacy, A Khalid Unavailable +[phone] Stacy, A Khalid Unavailable +[phone] Stacy, A Khalid Unavailable +[phone] Stacy, A Khalid Unavailable +[phone] Stacy, A Khalid Unavailable +[phone] Stanley ALBARRAN MD Unavailable Unavailable DEION, O [...] ALBARRAN MD Unavailable Unavailable DEION O GAVIOTA GAEMZ Unavailable Unavailable Stanley ALBARRAN MD Unavailable Unavailable [...] is protected by Article 27-F of the [facility] Public Health law. If you continue you may have access to information: Regarding HIV / AIDS; Provided by facilities licensed or operated by the [facility] Office of Mental Health; or Provided by the [facility] Office for People With Developmental Disabilities. If such information is present, then the following [facility] mandated warning applies: This information has [...] law may result in a fine or halfway sentence or both. A general authorization for the release of medical or other information is NOT sufficient authorization for further disc losure. Allergies and Adverse Reactions Type Description Substance Reaction Status Data Source(s ) Propensity to adverse reactions NO KNOWN ALLERGIES NO KNOWN ALLERGIES [facility] Propensity to adverse reactions ALLERGIES NOT ON FILE ALLERGIES NOT O N FILE [facility] Family History Family Member Name Family Member Gender Family Member Status Date o f Status Description Data Source(s) Unknown Male Diagnosis 08/22/2018 12:00:00 AM EST [facility]Gen ([facility]) Unknown Female Problem [facility] ([facility], ) Unknown Female Encounters Encounter Providers Location Date Indications Data Source(s ) Outpatient Attender: SUNITA Arnold Office 03/2021 10:30:00 AM EST [facility] ([facility] Outpatient Attender: Aleena Weber MD 1 11/19/2020 10:59:26 AM EST - 09/18/2021 01:09:16 PM EST [facility] ([facility]) Outpatient Attender: GAVIOTA Holcomb/Mariama/Cecil/Re indl 08/12/2021 02:00:00 PM EDT [facility] ([facility] Outpatient Attender: [...] 08/08/2021 12:00:00 AM EDT ORAL active MED[facility] ([facility] Amoxicillin 875 MG / [...] HCL 07/04/2021 12:00:00 AM EDT active [facility] ([facility] 50 mg 07/01/2021 12:00:00 AM [...] Hydrocodone Bitartrate 5 MG Oral Tabl et [[place]] [place] 06/08/2021 12:00:00 AM EDT ORAL active [facility] ([facility] Acetaminophen 325 MG / [...] Omeprazole 02/07/2021 12:00:00 AM EDT active [facility] ([facility] 40 mg 02/07/2021 12:00:00 AM [...] prior to procedure, may repeat [address] [facility] Take 1 tab po q 1/2hr prior to procedure , may repeat 1 time. Diazepam 5 MG Oral Tablet diazePAM (VALIUM) 5 mg table t diazePAM (VALIUM) 5 mg tablet 11/10/2020 12:00:00 AM EST completed Take 1 tab po q 1/2hr prior to procedure, may repeat [address] [facility] Take 1 tab po q 1/2hr prior to procedure , may repeat 1 time. 5-325 mg 11/10/2020 12:00:00 AM EST tablet 60 TAKE ONE TABLET BY MOUTH EVERY 8 HOURS NEEDED MAXIMUM DAILY DOSE = 2 TABLETS TAKE ONE TABLET BY MOUTH EVERY 8 HOURS NEEDED MAXIMUM DAILY DOSE = 2 TABLETS SOLD: 11/10/2020 [facility] Diazepam 5 MG Oral Tablet diazePAM (VALIUM) 5 mg table t diazePAM (VALIUM) 5 mg tablet 11/10/2020 12:00:00 AM EST completed Take 1 tab po q 1/2hr prior to procedure, may repeat [address] [facility] Take 1 tab po q 1/2hr prior to procedure , may repeat 1 time. 5 mg 11/06/2020 12:00:00 AM EST tablet 2 TAKE 1 TABLET BY MOUTH 1/2 HOUR BEFORE MRI, MAY REPEAT ONE DOSE MAXIMUM DAILY DOSE = 2 TABLETS TAKE 1 TABLET BY MOUTH 1/2 HOUR BEFORE MRI, MAY REPEAT ONE DOSE MAXIMUM DAILY DOSE = 2 TABLETS SOLD: 11/07/2020 [facility] Diazepam 5 MG Oral Tablet diazePAM (VALIUM) 5 mg table t diazePAM (VALIUM) 5 mg tablet 11/05/2020 12:00:00 AM EST compl eted Cervical stenosis of spinal canal Take one pill 1/2 before mri, may repeat x [address] [facility] Cervical stenosis of spinal canal Take one pill 1/2 before mri, may repeat x 1 Lorazepam 0.5 MG Oral Tablet Lorazepam 11/05/2020 12:00:00 AM EST ORAL active [facility] ([facility] Diazepam 5 MG Oral Tablet diazePAM (VALIUM) 5 mg table t diazePAM (VALIUM) 5 mg tablet 11/05/2020 12:00:00 AM EST compl eted Cervical stenosis of spinal canal Take one pill 1/2 before mri, may repeat x [address] [facility] Cervical stenosis of spinal canal Take one pill 1/2 before mri, may repeat x 1 Diazepam 5 MG Oral Tablet diazePAM (VALIUM) 5 mg table t diazePAM (VALIUM) 5 mg tablet 11/05/2020 12:00:00 AM EST compl eted Cervical stenosis of spinal canal Take one pill 1/2 before mri, may repeat x [address] [facility] Cervical stenosis of spinal canal Take one [...] 12:00:00 AM EST ORAL active M EDENT ([facility] Zithromax Z-[place]onte Zithromax Z-[place]onte 08/16/2020 12:00:00 AM EST ORAL completed [facility] ([facility] 5-325 mg 08/07/2020 12:00:00 AM [...] relationship to parkinson Policy Parkinson Plan Information Check Processor () Workers Compensation [id number] Self BLUE CROSS GUILLEN PLAN [id number] SP [id number] O BLUE [id number] SP [id number] BLUE CHOICE OPTIONS 7 [id number] [facility] Community Plan Commercial [id number] Self [facility] I [id number] Self [id number] Medicaid Patient's Choice [facility] Part B [id number] Self MEDICARE [id number] SP [id number] A MEDICARE MEDICARE [id number] SP [id number] MEDICARE [id number] SP [id number] A MEDICAID [facility] Medicare Medicare Part B [id number] Self [id number] [facility] MEDICARE PART B C [id number] S [id number] MEDICARE [id number] SP [id number] A MEDICARE [id number] SP [id number] A MEDICAID UNAVAILABLE UNAVAILA BLE [facility](MCAID) O [id number] S [id number] MEDICARE [id number] SP [id number] SELF PAY [id number] SP [id number] [employer] COMMUNITY PLAN MCDO [id number] SP [id number] [facility] COMMUNITY PLAN MCDO [id number] SP [id number] MEDICAID 3 [id number] 1 [id number] SELFPAY 5 UNAVAILABLE 1 UNAVAILA BLE BLUE CHOICE OPTN FHP O [id number] S [id number] EXCELLUS BCBS P [id number] S [id number] [place] [id number] SP [id number] M O UNAVAILABLE UNAVAILA BLE MEDICARE C [id number] S [id number] NGS MEDICARE NEW HAMPHIR O [id number] S [id number] MEDICAID [id number] SP [id number] MEDICAID M [id number] S [id number] [facility] [id number] Self [id number] [facility] [id number] Self [id number] Medicaid [facility] Part B [id number] Self [id number] Medicare [facility] Medicare Primary [id number] Self [id number] MEDICARE C [id number] S [id number] A [facility] PART B C [id number] S [id number] Medicare [facility] Medicare Primary [id number] Self Medicaid [place] Medigap Part B [id number] Self [facility] Health Maintenance Organization (HMO) [id number] Self Problems, Conditions, and Diagnoses Code Display Name Description Problem Type Effective Dates Data Source(s) M47.816 Spondylosis without myelopathy or radicu lopathy, lumbar region Spondylosis without myelopathy or radiculopathy, lumbar region Diagnosis 11/17/2020 11:30:38 AM EST [facility] M41.20 Other idiopathic scoliosis, site unspeci fied Other idiopathic scoliosis, site unspecified Diagnosis 11/17/2020 11:30:38 AM EST [facility] Z98.1 Arthrodesis status Arthrodesis status Diagnosis 12/2020 11:30:38 AM EST [facility] Neck Pain Neck Pain Diagnosis 11/17/2020 11:30:38 AM ES T [facility] 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 Surgeries/Procedures Procedure Description Date Indications Data Source(s) OFFICE OUTPATIENT VISIT 25 MINUTES 09/19/2021 12:00:00 AM EST [facility] ([facility] OFFICE OUTPATIENT NEW 45 MINUTES 08/12/2021 12:00:00 A M EDT [facility] ([facility], ) OFFICE OUTPATIENT VISIT 25 MINUTES 08/08/2021 12:00:00 AM EDT [facility] ([facility] OFFICE OUTPATIENT VISIT 25 MINUTES 08/01/2021 12:00:00 AM EDT [facility] ([facility] OFFICE OUTPATIENT VISIT 25 MINUTES 02/07/2021 12:00:00 AM EDT [facility] ([facility] XR SCOLIOSIS SERIES XR SCOLIOSIS SERIES 11/17/2020 11:24:12 AM EST [facility] GENERAL SUPPLY GENERAL SUPPLY 10/11/2020 12:59:[address] [facility] Results ID Date Data Source [id number] 09/19/2021 11:41:00 AM EST [facility] ([email or web address] Name Value Range Interpretation Code Description Data Rosa rce(s) Supporting Document(s) Amylase [Enzymatic activity/volume] in Serum or Plasma 51 U/L 31- 110 [facility] ([facility] Lipoprotein lipase [Enzymatic activity/volume] in Serum or Plasm a 36 U/L 13-78 [facility] ([facility] ) ID Date Data Source [id number] 09/19/2021 11:41:00 AM EST [facility] ([facility] Name Value Range Interpretation Code Description Data Rosa rce(s) Supporting Document(s) WBC 6.6 10E3/uL 4.1-10.9 ALESSANDRO ([facility] NORMAL RANGES Age WBC [...] HCT IS 5% LESS SOURCE FOR DATA: [employer] DYN 1800 OPERATION MANUAL( AUTOMATED BLOOD [...] >32 mL/min Normal HGB 14.1 g/dL 12.0-18.0 [facility] ([facility] NORMAL RANGES Age WBC RBC HGB [...] HCT IS 5% LESS SOURCE FOR DATA: goviral 1800 OPERATION MANUAL( AUTOMATED BLOOD COUNTS AND [...] >32 mL/min Normal HCT 42.0 % 37.0-51.0 [facility] NORMAL RANGES Age WBC [...] >32 mL/min Normal RBC 4.32 10E6/uL 4.20-6.30 [facility] ([facility] NORMAL RANGES Age WBC RBC [...] HCT IS 5% LESS SOURCE FOR DATA: goviral 1800 OPERATION MANUAL( AUTOMATED BLOOD COUNTS AND [...] MCV 97.2 fL 80.0-97.0 Above high normal [facility] ([facility] NORMAL RANGES [...] HCT IS 5% LESS SOURCE FOR DATA: goviral 1800 OPERATION MANUAL( AUTOMATED BLOOD COUNTS AND [...] MCH 32.6 pg 26.0-32.0 Above high normal [facility] NORMAL RANGES [...] HCT IS 5% LESS SOURCE FOR DATA: goviral 1800 OPERATION MANUAL( AUTOMATED BLOOD COUNTS AND [...] >32 mL/min Normal MCHC 33.6 g/dL 31.0-36.0 [facility] ([facility] NORMAL [...] HCT IS 5% LESS SOURCE FOR DATA: goviral 1800 OPERATION MANUAL( AUTOMATED BLOOD COUNTS AND [...] >32 mL/min Normal PLT 283 10E3/uL 140-440 [facility] ([facility] NORMAL RANGES Age WBC [...] HCT IS 5% LESS SOURCE FOR DATA: goviral 1800 OPERATION MANUAL( AUTOMATED BLOOD COUNTS AND [...] HCT IS 5% LESS SOURCE FOR DATA: goviral 1800 OPERATION MANUAL( AUTOMATED BLOOD COUNTS AND [...] >32 mL/min Normal Lym% 23.7 % 10.0-58.5 [facility] ([facility] NORMAL [...] HCT IS 5% LESS SOURCE FOR DATA: goviral 1800 OPERATION MANUAL( AUTOMATED BLOOD COUNTS AND [...] mL/min Normal MXD% 8.8 % 0.1-24.0 ALESSANDRO ([facility] NORMAL RANGES Age WBC [...] HCT IS 5% LESS SOURCE FOR DATA: goviral 1800 OPERATION MANUAL( AUTOMATED BLOOD COUNTS AND [...] >32 mL/min Normal Neut% 67.5 % 37.0-92.0 [facility] ([facility] NORMAL RANGES Age WBC [...] HCT IS 5% LESS SOURCE FOR DATA: goviral 1800 OPERATION MANUAL( AUTOMATED BLOOD COUNTS AND [...] >32 mL/min Normal Lym# 1.6 10E3/uL 0.6-4.1 [employer] ([facility] NORMAL RANGES Age WBC [...] >32 mL/min Normal Neut# 4.4 % 2.0-7.8 [facility] ([facility] NORMAL RANGES Age WBC [...] HCT IS 5% LESS SOURCE FOR DATA: goviral 1800 OPERATION MANUAL( AUTOMATED BLOOD COUNTS AND [...] >32 mL/min Normal MPV 9.6 fL 9.0-13.0 [facility] ([facility] NORMAL [...] HCT IS 5% LESS SOURCE FOR DATA: goviral 1800 OPERATION MANUAL( AUTOMATED BLOOD COUNTS AND [...] >32 mL/min Normal MXD# 0.6 10E3/uL 0.0-1.8 [facility] ([facility] NORMAL RANGES Age WBC [...] HCT IS 5% LESS SOURCE FOR DATA: goviral 1800 OPERATION MANUAL( AUTOMATED BLOOD COUNTS AND [...] >32 mL/min Normal ID Date Data Source [id number] 09/19/2021 11:41:00 AM EST [facility] ([facility] Name Value Range Interpretation Code Description Data Rosa rce(s) Supporting Document(s) Glu 116 mg/dL 70-110 Above high normal [facility] ([facility] NORMAL RANGES Age WBC [...] HCT IS 5% LESS SOURCE FOR DATA: goviral 1800 OPERATION MANUAL( AUTOMATED BLOOD COUNTS AND [...] HCT IS 5% LESS SOURCE FOR DATA: goviral 1800 OPERATION MANUAL( AUTOMATED BLOOD COUNTS AND [...] >32 mL/min Normal BUN 16 mg/dL 8-23 [facility] NORMAL RANGES Age WBC [...] HCT IS 5% LESS SOURCE FOR DATA: goviral 1800 OPERATION MANUAL( AUTOMATED BLOOD COUNTS AND [...] >32 mL/min Normal K 4.3 mmol/L 3.5-5.1 [facility] ([facility] NORMAL RANGES Age [...] HCT IS 5% LESS SOURCE FOR DATA: goviral 1800 OPERATION MANUAL( AUTOMATED BLOOD COUNTS AND [...] >32 mL/min Normal Na 137 mmol/L 136-145 [facility] ([facility] NORMAL RANGES Age [...] above >32 mL/min Normal BUN/Creatinine Ratio 18.2 [facility] [employer] ([facility] NORMAL RANGES Age [...] HCT IS 5% LESS SOURCE FOR DATA: goviral 1800 OPERATION MANUAL( AUTOMATED BLOOD COUNTS AND [...] >32 mL/min Normal CA 9.8 mg/dL 8.6-10.2 [facility] ([facility] NORMAL RANGES Age [...] HCT IS 5% LESS SOURCE FOR DATA: goviral 1800 OPERATION MANUAL( AUTOMATED BLOOD COUNTS AND [...] HCT IS 5% LESS SOURCE FOR DATA: goviral 1800 OPERATION MANUAL( AUTOMATED BLOOD COUNTS AND [...] >32 mL/min Normal CL 100.2 mmol/L 98.0-107.0 [facility] ([facility] NORMAL RANGES Age WBC RBC [...] HCT IS 5% LESS SOURCE FOR DATA: goviral 1800 OPERATION MANUAL( AUTOMATED BLOOD COUNTS AND [...] HCT IS 5% LESS SOURCE FOR DATA: goviral 1800 OPERATION MANUAL( AUTOMATED BLOOD COUNTS AND [...] HCT IS 5% LESS SOURCE FOR DATA: goviral 1800 OPERATION MANUAL( AUTOMATED BLOOD COUNTS AND [...] HCT IS 5% LESS SOURCE FOR DATA: goviral 1800 OPERATION MANUAL( AUTOMATED BLOOD COUNTS AND [...] above >32 mL/min Normal A/G Ratio 2.0 [facility] ALESSANDRO ([facility] NORMAL RANGES Age WBC [...] HCT IS 5% LESS SOURCE FOR DATA: goviral 1800 OPERATION MANUAL( AUTOMATED BLOOD COUNTS AND [...] above >32 mL/min Normal Globulin 2.4 Calc [facility] ([facility] NORMAL RANGES Age WBC [...] HCT IS 5% LESS SOURCE FOR DATA: goviral 1800 OPERATION MANUAL( AUTOMATED BLOOD COUNTS AND [...] mL/min Normal Ast (Sgot) 32 U/L 0-40 [employer] ([facility] NORMAL RANGES Age [...] >32 mL/min Normal Tbili 0.54 mg/dL 0.0-1.2 [employer] ([facility] NORMAL RANGES Age [...] HCT IS 5% LESS SOURCE FOR DATA: goviral 1800 OPERATION MANUAL( AUTOMATED BLOOD COUNTS AND [...] mL/min Normal Alt (SGPT) 25 U/L 0-41 [facility] ([facility] NORMAL RANGES Age WBC RBC [...] HCT IS 5% LESS SOURCE FOR DATA: goviral 1800 OPERATION MANUAL( AUTOMATED BLOOD COUNTS AND [...] >32 mL/min Normal Anion Gap 21 mmol/L [facility] ([facility] NORMAL RANGES Age [...] HCT IS 5% LESS SOURCE FOR DATA: goviral 1800 OPERATION MANUAL( AUTOMATED BLOOD COUNTS AND [...] HCT IS 5% LESS SOURCE FOR DATA: goviral 1800 OPERATION MANUAL( AUTOMATED BLOOD COUNTS AND [...] HCT IS 5% LESS SOURCE FOR DATA: goviral 1800 OPERATION MANUAL( AUTOMATED BLOOD COUNTS AND [...] and above >32 mL/min Normal eGFR Non-Afr. Venezuelan 92 # [facility] ([facility] [...] HCT IS 5% LESS SOURCE FOR DATA: goviral 1800 OPERATION MANUAL( AUTOMATED BLOOD COUNTS AND [...] >32 mL/min Normal ID Date Data Source [id number] 08/03/2021 11:04:00 PM EDT [facility] Name Value Range Interpretation Code Description Data Rosa rce(s) Supporting Document(s) SARS coronavirus 2 RNA [Presence] in Res piratory specimen by JAYA with probe detection NEGATIVE [place] This lab was ordered by [facility] a nd reported by [facility]. ID Date Data Source [id number] 08/01/2021 10:13:00 AM EDT MEDENT ([facility] Name Value Range Interpretation Code Description Data Rosa rce(s) Supporting Document(s) WBC 5.9 10E3/uL 4.1-10.9 [facility] ([facility] NORMAL RANGES Age WBC [...] YEARS EXCLUSIVE. RBC 4.20 10E6/uL 4.20-6.30 ALESSANDRO ([facility] NORMAL RANGES Age WBC [...] HCT IS 5% LESS SOURCE FOR DATA: goviral 1800 OPERATION MANUAL( AUTOMATED BLOOD COUNTS AND [...] HCT IS 5% LESS SOURCE FOR DATA: goviral 1800 OPERATION MANUAL( AUTOMATED BLOOD COUNTS AND [...] 2-19 YEARS EXCLUSIVE. HGB 13.4 g/dL 12.0-18.0 [facility] ([facility] NORMAL [...] HCT IS 5% LESS SOURCE FOR DATA: goviral 1800 OPERATION MANUAL( AUTOMATED BLOOD COUNTS AND [...] HCT IS 5% LESS SOURCE FOR DATA: goviral 1800 OPERATION MANUAL( AUTOMATED BLOOD COUNTS AND [...] YEARS EXCLUSIVE. MCH 31.9 pg 26.0-32.0 [facility] ([facility] NORMAL RANGES Age WBC [...] HCT IS 5% LESS SOURCE FOR DATA: goviral 1800 OPERATION MANUAL( AUTOMATED BLOOD COUNTS AND [...] 2-19 YEARS EXCLUSIVE. RDW-CV 12.2 % 11.5-14.5 [facility] ([facility] NORMAL [...] HCT IS 5% LESS SOURCE FOR DATA: goviral 1800 OPERATION MANUAL( AUTOMATED BLOOD COUNTS AND [...] 2-19 YEARS EXCLUSIVE. PLT 247 10E3/uL 140-440 [facility] ([facility] NORMAL RANGES Age WBC [...] HCT IS 5% LESS SOURCE FOR DATA: goviral 1800 OPERATION MANUAL( AUTOMATED BLOOD COUNTS AND [...] HCT IS 5% LESS SOURCE FOR DATA: goviral 1800 OPERATION MANUAL( AUTOMATED BLOOD COUNTS AND [...] 2-19 YEARS EXCLUSIVE. MXD% 6.9 % 0.1-24.0 [facility] ([facility] NORMAL [...] HCT IS 5% LESS SOURCE FOR DATA: goviral 1800 OPERATION MANUAL( AUTOMATED BLOOD COUNTS AND [...] HCT IS 5% LESS SOURCE FOR DATA: goviral 1800 OPERATION MANUAL( AUTOMATED BLOOD COUNTS AND [...] YEARS EXCLUSIVE. Lym% 27.5 % 10.0-58.5 ALESSANDRO ([facility] NORMAL RANGES Age [...] HCT IS 5% LESS SOURCE FOR DATA: goviral 1800 OPERATION MANUAL( AUTOMATED BLOOD COUNTS AND [...] 2-19 YEARS EXCLUSIVE. Lym# 1.6 10E3/uL 0.6-4.1 [facility] ([facility] NORMAL RANGES Age WBC [...] HCT IS 5% LESS SOURCE FOR DATA: goviral 1800 OPERATION MANUAL( AUTOMATED BLOOD COUNTS AND [...] HCT IS 5% LESS SOURCE FOR DATA: goviral 1800 OPERATION MANUAL( AUTOMATED BLOOD COUNTS AND [...] 2-19 YEARS EXCLUSIVE. MXD# 0.4 10E3/uL 0.0-1.8 [facility] ([facility] NORMAL RANGES Age WBC RBC HGB [...] HCT IS 5% LESS SOURCE FOR DATA: goviral 1800 OPERATION MANUAL( AUTOMATED BLOOD COUNTS AND [...] 2-19 YEARS EXCLUSIVE. MPV 9.4 fL 9.0-13.0 [facility] ([facility] NORMAL [...] HCT IS 5% LESS SOURCE FOR DATA: goviral 1800 OPERATION MANUAL( AUTOMATED BLOOD COUNTS AND [...] 2-19 YEARS EXCLUSIVE. ID Date Data Source [id number] 08/01/2021 10:13:00 AM EDT [facility] ([facility] Name Value Range [...] HCT IS 5% LESS SOURCE FOR DATA: goviral 1800 OPERATION MANUAL( AUTOMATED BLOOD COUNTS AND [...] HCT IS 5% LESS SOURCE FOR DATA: goviral 1800 OPERATION MANUAL( AUTOMATED BLOOD COUNTS AND [...] HCT IS 5% LESS SOURCE FOR DATA: goviral 1800 OPERATION MANUAL( AUTOMATED BLOOD COUNTS AND [...] 2-19 YEARS EXCLUSIVE. LDL_C 127 Calc 75-129 [facility] NORMAL RANGES Age WBC [...] HCT IS 5% LESS SOURCE FOR DATA: goviral 1800 OPERATION MANUAL( AUTOMATED BLOOD COUNTS AND [...] 2-19 YEARS EXCLUSIVE. Cho/HDL Ratio 3.6 Calc [employer] ([facility] NORMAL RANGES Age WBC RBC HGB [...] HCT IS 5% LESS SOURCE FOR DATA: goviral 1800 OPERATION MANUAL( AUTOMATED BLOOD COUNTS AND [...] 2-19 YEARS EXCLUSIVE. ID Date Data Source [id number] 08/01/2021 10:13:00 AM EDT [facility] (Famil y [...] HCT IS 5% LESS SOURCE FOR DATA: goviral 1800 OPERATION MANUAL( AUTOMATED BLOOD COUNTS AND [...] 2-19 YEARS EXCLUSIVE. BUN 10 mg/dL 8-23 [facility] ([facility] NORMAL RANGES Age WBC [...] HCT IS 5% LESS SOURCE FOR DATA: goviral 1800 OPERATION MANUAL( AUTOMATED BLOOD COUNTS AND [...] YEARS EXCLUSIVE. BUN/Creatinine Ratio 12.9 CALC [facility] ([facility] NORMAL RANGES Age [...] HCT IS 5% LESS SOURCE FOR DATA: goviral 1800 OPERATION MANUAL( AUTOMATED BLOOD COUNTS AND [...] 2-19 YEARS EXCLUSIVE. Na 139 mmol/L 136-145 [facility] ([facility] NORMAL RANGES Age WBC RBC [...] 2-19 YEARS EXCLUSIVE. CL 104.0 mmol/L 98.0-107.0 [facility] ([facility] NORMAL [...] HCT IS 5% LESS SOURCE FOR DATA: goviral 1800 OPERATION MANUAL( AUTOMATED BLOOD COUNTS AND [...] HCT IS 5% LESS SOURCE FOR DATA: goviral 1800 OPERATION MANUAL( AUTOMATED BLOOD COUNTS AND [...] HCT IS 5% LESS SOURCE FOR DATA: [employer] DYN 1800 OPERATION MANUAL( AUTOMATED BLOOD [...] 2-19 YEARS EXCLUSIVE. TP 6.9 g/dL 6.6-8.7 [facility] NORMAL [...] HCT IS 5% LESS SOURCE FOR DATA: goviral 1800 OPERATION MANUAL( AUTOMATED BLOOD COUNTS AND [...] HCT IS 5% LESS SOURCE FOR DATA: goviral 1800 OPERATION MANUAL( AUTOMATED BLOOD COUNTS AND [...] 2-19 YEARS EXCLUSIVE. Alb 4.3 g/dL 3.5-5.2 [facility] NORMAL [...] HCT IS 5% LESS SOURCE FOR DATA: goviral 1800 OPERATION MANUAL( AUTOMATED BLOOD COUNTS AND [...] HCT IS 5% LESS SOURCE FOR DATA: goviral 1800 OPERATION MANUAL( AUTOMATED BLOOD COUNTS AND [...] YEARS EXCLUSIVE. A/G Ratio 1.7 CALC [facility] ([facility] NORMAL RANGES Age WBC [...] HCT IS 5% LESS SOURCE FOR DATA: goviral 1800 OPERATION MANUAL( AUTOMATED BLOOD COUNTS AND [...] HCT IS 5% LESS SOURCE FOR DATA: [employer] DYN 1800 OPERATION MANUAL( AUTOMATED BLOOD [...] HCT IS 5% LESS SOURCE FOR DATA: goviral 1800 OPERATION MANUAL( AUTOMATED BLOOD COUNTS AND [...] (Sgot) 54 U/L 0-40 Above high normal [facility] ([facility] NORMAL RANGES Age WBC [...] HCT IS 5% LESS SOURCE FOR DATA: goviral 1800 OPERATION MANUAL( AUTOMATED BLOOD COUNTS AND [...] HCT IS 5% LESS SOURCE FOR DATA: goviral 1800 OPERATION MANUAL( AUTOMATED BLOOD COUNTS AND [...] HCT IS 5% LESS SOURCE FOR DATA: goviral 1800 OPERATION MANUAL( AUTOMATED BLOOD COUNTS AND [...] YEARS EXCLUSIVE. Anion Gap 20 mmol/L [facility] NORMAL RANGES Age WBC [...] HCT IS 5% LESS SOURCE FOR DATA: goviral 1800 OPERATION MANUAL( AUTOMATED BLOOD COUNTS AND [...] INDIVIDUALA AGED 2-19 YEARS EXCLUSIVE. eGFR Non-Afr. Venezuelan 96 # [facility] ([facility] [...] HCT IS 5% LESS SOURCE FOR DATA: [employer] DYN 1800 OPERATION MANUAL( AUTOMATED BLOOD [...] HCT IS 5% LESS SOURCE FOR DATA: goviral 1800 OPERATION MANUAL( AUTOMATED BLOOD COUNTS AND [...] 2-19 YEARS EXCLUSIVE. ID Date Data Source [id number] 03/10/2021 10:09:00 AM EDT [facility] ([facility] Name Value Range Interpretation Code Description Data Rosa rce(s) Supporting Document(s) Glu 123 mg/dL 70-110 Above high normal [facility] ([facility] CHRONIC KIDNEY DISEASE STAGING [...] mL/min Normal BUN 10 mg/dL 8- [facility] ([facility] CHRONIC KIDNEY DISEASE STAGING [...] mL/min Normal Creat 0.8 mg/dL 0.7-1.2 [facility] ([facility] CHRONIC KIDNEY DISEASE [...] mL/min Normal BUN/Creatinine Ratio 12.1 CALC [facility] ([facility] CHRONIC KIDNEY DISEASE [...] mL/min Normal Na 136 mmol/L 136-145 [facility] ([facility] CHRONIC KIDNEY DISEASE [...] mL/min Normal K 3.9 mmol/L 3.5-5.1 [facility] ([facility] CHRONIC KIDNEY DISEASE [...] 21.7 mmol/L 22.0-29.0 Below low normal [facility] ([facility] CHRONIC KIDNEY DISEASE STAGING [...] mL/min Normal CL 99.9 mmol/L 98.0-107.0 [facility] ([facility] CHRONIC KIDNEY DISEASE STAGING [...] mL/min Normal CA 9.1 mg/dL 8.6-10.2 [facility] ([facility] CHRONIC KIDNEY DISEASE [...] mL/min Normal TP 7.1 g/dL 6.6-8.7 [facility] ([facility] CHRONIC KIDNEY DISEASE [...] mL/min Normal Alb 4.4 g/dL 3.5-5.2 [facility] ([facility] CHRONIC KIDNEY DISEASE [...] >32 mL/min Normal Globulin 2.7 CALC [facility] ([facility] CHRONIC KIDNEY DISEASE [...] mL/min Normal A/G Ratio 1.6 CALC [facility] ([facility] CHRONIC KIDNEY DISEASE STAGING [...] 78 U/L 0-41 Above high normal [facility] ([facility] CHRONIC KIDNEY DISEASE STAGING [...] mL/min Normal Osmolality-Calculated 273.1 CALC MED [facility] ([facility] CHRONIC KIDNEY DISEASE STAGING [...] mL/min Normal Tbili 1.20 mg/dL 0.0-1.2 [facility] ([facility] CHRONIC KIDNEY DISEASE STAGING [...] 105 U/L 0-40 Above high normal [facility] ([facility] CHRONIC KIDNEY DISEASE STAGING [...] mL/min Normal Anion Gap 19 mmol/L [facility] ([facility] CHRONIC KIDNEY DISEASE STAGING [...] mL/min Normal eGFR 112 # [facility] ( [facility] CHRONIC KIDNEY DISEASE STAGING [...] and above >32 mL/min Normal eGFR Non-Afr. Venezuelan 96 # [facility] ([facility] CHRONIC KIDNEY DISEASE STAGING [...] >32 mL/min Normal ID Date Data Source [id number] 02/07/2021 10:40:00 AM EDT [facility] ([facility] Name Value Range [...] Trig 580 mg/dL 35-200 Above high normal [facility] ([facility] CHRONIC KIDNEY DISEASE STAGING [...] YEARS EXCLUSIVE. Cho/HDL Ratio 8.0 Calc [facility] ([facility] CHRONIC KIDNEY DISEASE STAGING PER [...] Abnormal (applies to non -numeric results) [facility] ([facility] CHRONIC KIDNEY DISEASE STAGING [...] 2-19 YEARS EXCLUSIVE. ID Date Data Source [id number] 02/07/2021 10:40:00 AM EDT [facility] ([facility] Name Value Range [...] 2-19 YEARS EXCLUSIVE. BUN 11 mg/dL 8-23 [facility] ([facility] CHRONIC [...] YEARS EXCLUSIVE. Creat 0.8 mg/dL 0.7-1.2 [facility] ([facility] CHRONIC KIDNEY DISEASE [...] YEARS EXCLUSIVE. BUN/Creatinine Ratio 15.0 CALC [facility] ([facility] CHRONIC KIDNEY DISEASE [...] EXCLUSIVE. Na 136 mmol/L 136-145 [facility] ([facility] CHRONIC KIDNEY DISEASE STAGING [...] YEARS EXCLUSIVE. Alb 4.3 g/dL 3.5-5.2 [facility] ([facility] CHRONIC KIDNEY DISEASE [...] YEARS EXCLUSIVE. Anion Gap 19 mmol/L [facility] ([facility] CHRONIC KIDNEY DISEASE [...] INDIVIDUALA AGED 2-19 YEARS EXCLUSIVE. eGFR Non-Afr. Venezuelan 96 # [facility] ([facility] [...] 2-19 YEARS EXCLUSIVE. ID Date Data Source [id number] 02/07/2021 10:39:00 AM EDT [facility] ([facility] Name Value Range Interpretation Code Description Data Rosa rce(s) Supporting Document(s) Amylase [Enzymatic activity/volume] in Serum or Plasma 51 U/L 31- 110 [facility] ([facility] Lipoprotein lipase [Enzymatic activity/volume] in Serum or Plasm a 56 U/L 13-78 [facility] ([facility] ) ID Date Data Source [id number] 11/17/2020 03:03:47 PM [facility] -REPORT:PROCEDURE: XR SCOLIOSIS SERIESDA TE AND TIME: 11/17/2020 11:03 AM ESTHISTORY: Back pain.COMPARISON: None prior study from October 05, 2015.TECHNIQUE: 6 views of the thoracic and lumbar spine are submitted forreview to comprise a scoliosis series.FINDINGS: There is dextroscoliosis of the thoracolumbar spine. Alignmentis otherwise grossly normal. No acute fractures are present. There ismultilevel xiex-co-fkrffmxa degenerative disc disease within the lumbarspine. There is also mild multilevel degenerative disc disease withinthe thoracic spine. The patient is status post prior anterior andposterior fusion within the cervical spine. The soft tissues are grosslynormal.IMPRESSION:Dextroscoliosis.Multilevel degenerative disc disease.DWS:[id number] SIGNATURE: Manjit Felton MD Name Value Range Interpretation Code Description Data Rosa rce(s) Supporting Document(s) ID Date Data Source [id number] 11/17/2020 12:07:[address] [facility] Name Value Range Interpretation Code Description Data Rosa rce(s) Supporting Document(s) Progress Note [facility] rvices XTVZLu6eYdOKYjDa53/WDYyfIIVsk6LqDFyaVVb3OEfdEGDyQ1XfFDV1lY8qBVX3YUfQVtWnQrFlJgMg [facility] [file] AgICAgICAgICAgICAgICAgICAgICAgICAgICAgICAg ICAgICAgICAgICAgICAgICAgICAgICAgICAgDQogICAgICAgICAgICAgICAgICAgICAgICAgICAgICAg ICAgICAgICAgICAgICAgICAgICAgICAgICAgICAgICAgICAgICAgICAgICAgICAgICAgICAgICAgICAg ICAgICAgICAgDQogICAgICAgICAgICAgICAgICAgIC AgICAgICAgICAgICAgICAgICAgICAgICAgICAgICAgICAgICAgICAgICAgICAgICAgICAgICAgICAgIC AgICAgICAgICAgICAgICAgICAgDQogICAgICAgICAgICAgICAgICAgICAgICAgICAgICAgICAgICAgIC AgICAgICAgICAgICAgICAgICAgICAgICAgICAgICAg ICAgICAgICAgICAgICAgICAgICAgICAgICAgICAgDQogICAgICAgICAgICAgICAgICAgICAgICAgICAg ICAgICAgICAgICAgICAgICAgICAgICAgICAgICAgICAgICAgICAgICAgICAgICAgICAgICAgICAgICAg ICAgICAgICAgICAgDQogICAgICAgICAgICAgICAgIC AgICAgICAgICAgICAgICAgICAgICAgICAgICAgICAgICAgICAgICAgICAgICAgICAgICAgICAgICAgIC AgICAgICAgICAgICAgICAgICAgICAgDQogICAgICAgICAgICAgICAgICAgICAgICAgICAgICAgICAgIC AgICAgICAgICAgICAgICAgICAgICAgICAgICAgICAg ICAgICAgICAgICAgICAgICAgICAgICAgICAgICAgICAgDQogICAgICAgICAgICAgICAgICAgICAgICAg ICAgICAgICAgICAgICAgICAgICAgICAgICAgICAgICAgICAgICAgICAgICAgICAgICAgICAgICAgICAg ICAgICAgICAgICAgICAgDQogICAgICAgICAgICAgIC AgICAgICAgICAgICAgICAgICAgICAgICAgICAgICAgICAgICAgICAgICAgICAgICAgICAgICAgICAgIC AgICAgICAgICAgICAgICAgICAgICAgICAgDQogICAgICAgICAgICAgICAgICAgICAgICAgICAgICAgIC AgICAgICAgICAgICAgICAgICAgICAgICAgICAgICAg WDVyPOAhIQNuYIDiIZWsWNMpZFHbKGUjDPGvWMXwTKFbNXJcOKi2K6onCAVgVGLlYO0fFNv1Qr6+DQoN BsHgQUU6dqVurQ2TOI6bm8IaHTzbCLVyg4EdCFi9YH0VHQZvSFatZZ8MLUunbf5IBDPwCBUxcCBQp7dj XwEvDKF9BRSjBrcwBE3RPUEaE8lqzhRqSELaIXXOVA axZVBNBAytRRWBRATlPQWeZhVtNbMvSOPyWU1WEJVlZ463irWvPJ7TVu5ZIjMvBD9fzw4TSQYzOPNmAe aULhg3DIboUA6BeRVccCE8DgFkMZYUUvVdF5xaa6JfIIJzKYJHZVqcVD9Lb0QbuGYlRMv+Gz6IPE6zu0 AtBOv4EdNoGY5ncv9XWLlBCnIvM9GpbFsmLUUoc0sx BXQoHP2yjSUuCVH9VCbnYQcnUKPWCGLkqWxqASJNJJPuaMQgRfSyCzEwOVNfCVghDJISMByZGaVqN1Dy c6VkZrQ4DUFcFqLaHXfaSGJbVzX8PI18jPutKJ8YBKNlHNFxAD21NGXzQCOsRm1LNj1UUuNzUF8bcw9O BFYaAUGwNmgWSbj0RFtpEJ0AuCTqZ1GioUNwd5sRTq MnC9MSGAK6PEAjPf8CTQFqGjZtDMOaXQdpMI7xFAWbQGBIoIvrsrT1DO5JOG1vytJkNY6AQaDdCe3qOw 4BVkGnA2NxS8CtKGHzPWZDSZniGT9LGFisRS9rPX8Gn2CAyQLxbE9wuv6FKJZmDXGxTmvnge7CWrvrV4 R6qNvwTTBjDPLlBBTVMIobSK4QECZdOWR0MSM0WAQk MBXLLvDxS44vNJ2IA5Xoq55tRbT2RZGfUlJsKVfoTV79dFpwxcDqzKFihNzlPK9EWv6+DQplbmRvYmoN YoqfIMIHSpSbLKDPDmKbKSAqPORpHYFwOaJ1VbWlWj9RJVTwQVXmUIGfDhHaAUFhBDAdXQzjDMNeTQOy ATK6WGOmSPGmXX6LYyOrYVFeOUD0RyLoYDWwEKJgfs 8VRXAtWIAjYYR6InYgVWPxZKLxBQsgLTVaXBZgUpV9BWOxUYEsFL6HGcFoLVYpMMI0TILeFGCqZYWfrz 6NBMFcSVLxOPOhDSAbOQBmVNImWKqbJBOmATB5WINiGJPtHKTeSN0JGtUeWNOgWPd7LSMsCMPxIDEdsu 6FPVLfNIQsAYKnBAKtCXNhWSNcJDnwDPIvXZQ5XuY7 MXOkMUFpUQ4TKyFiYGZqKGh0EEEvXORaRXCjoc4VZWNgDCGuOFg8ZSAfBYRtAVUsSLpaQSFrLIOeAAu6 GQGdNPZcTI8GNhXwOKOhDVPrRGKhCRHcMKRrmk1GUHRzEPOyOIL0CRRjJZQeXMRvXLbbEQZcWGAiGLI1 GEJzDCGyAG7RMrNoESIrTZA2XDXbPUMtFMWtyt7UET PrOWMbCdF4CtLmGCHzQDCeBDsdKXRxPJKaLKc9EBLaEYAySZ3NIrWyMACqVlUuNhVcMWAnKZOtrp9BKQ EkNJBsGPO5SCFbHFNdQVMkQMhiVRYyQEP7WyJlDEFvGOYvCE2VTwQwBPArQkR4PPBnGOQxEIMhpb5TLT ZhKZCqNRYkRdPmVPWcDYOnNUxcOERePOO0BAe4UGQv DRVmBJ2JHgLkCGOlOhWxMaVfJRPfNYPxlo4WTSVkBGEaRrL9QGTzLNFqLFObFAasWUZmURL2LkguHXXo DVXhJU5QRsTbLCBrRpy2FdFyJRTeYUWlnz9LJVKiBVYcDyt1MSWxYIKwRMAaDEceIBQzNWZ4IfemYZRm JVKzUN1ENjRyLDTqSdu6EkJsXUBhKLSiof4LIZCeSN OrMJK7WRVgBWQvAQQmBCzoVNIpVEDaLDhnJXUlVMNxVS0GLaRhXRFyNKMyHKBqSCLjDZRivr7NUJSfJF Z3HzCxNbOqIFYtMTAgDJrdCYNjKCVlDoJ7TQNyEHAxRS0WRcIwZZDtJGT7RDRfOBJhHPPpjj7HSJReIS A1XfO7XMGcZAQjSTPtNMyjGVImMDJ9WwL1JYFgRQWp VB9XQeLeSHBpBLC5MHAaWEHsYBAyne3JBPHhXAZ2EVj9THNsDZDvZFGgOBo2rkHfkBNcWId7UH0CM1Ug dhOoYXEPDj7Qt882CGAxVZMsHu8DC8uqSd4lACVoMIWTPs9LFVg5GREcKNOnUdA7SzBcSvQfQxEiJtRf CbDdJOU1HAYzJVQ+JQc0KsBdJTRjGIijUJKtTVTbUL UzPtSqZbFgQdw3UkKoCW4tQQZXId9+AEivuRQqlWbiACWFVuV0NxW4JExaDCIKQs7T ID Date Data Source [id number] 11/17/2020 12:07:14 PM EST [facility] Name Value Range Interpretation Code Description Data Rosa rce(s) Supporting Document(s) Progress Note [facility] OYPUAu1mVnBSVgRv95/HDDujYZJun9IzZOsvNFt8INgbFSFjZ0SoQNK5lY5cLUT3QToAHqLxPgNtXgTe lbm [file] SrTnbmLtCaPK0ZXf1ZSaF6ITN9jILvDv6OGcOdOzbAZpCoTN6OEHz= ID Date Data Source [id number] 11/10/2020 12:00:00 AM [facility] Elmer Kumar MD Patient Name: RIOS CORNEJO Date of : 1960[place] [address] Date of Exam: 11/10/2020#: Fax: [phone] EXAM: [...] cm high signal lesion within the right M94zkxuxblg which measured only 5 mm in 2015. [...] by: Dago Mason MD 11/10/2020 2:24 PM [facility] ( & Jayashree)VrevaV/jmcThank you for referring ANA CORNEJO to our office. Electronically Signed - VENUSAD 11/10/20 14:55 Name Value Range Interpretation Code Description Data Rosa rce(s) Supporting Document(s) ID Date Data Source [id number] 11/10/2020 12:00:00 AM [facility] Elmer Kumar MD Patient Name: ANA [address] Date of : 1960[place] [address] Date of Exam: 11/10/2020#: Fax: [phone] EXAM: [...] rce(s) Supporting Document(s) ID Date Data Source [id number] 10/11/2020 12:59:[address] [facility] Name Value Range Interpretation Code Description Data Rosa rce(s) Supporting Document(s) Progress Note [facility] rvices KHKXTk9zMgJPSfRu89/TOQfdPWSkd3WrTMgmIGb6DQbjIURhV3WkMLH5qR8dUUJ9PCjXOyBpIyTuGuC7 lbm [file] ICAgICAgICAgICAgICAgICAgICAgICAgICAgICAgICAgICAgICAgICAgICAgICAgICAgICAgICAgICAg ICAgICAgICAgICAgICAgICAgICAgICAgICAgICAgICANCiAgICAgICAgICAgICAgICAgICAgICAgICAg ICAgICAgICAgICAgICAgICAgICAgICAgICAgICAgIC AgICAgICAgICAgICAgICAgICAgICAgICAgICAgICAgICAgICAgICAgICANCiAgICAgICAgICAgICAgIC AgICAgICAgICAgICAgICAgICAgICAgICAgICAgICAgICAgICAgICAgICAgICAgICAgICAgICAgICAgIC AgICAgICAgICAgICAgICAgICAgICAgICANCiAgICAg ICAgICAgICAgICAgICAgICAgICAgICAgICAgICAgICAgICAgICAgICAgICAgICAgICAgICAgICAgICAg ICAgICAgICAgICAgICAgICAgICAgICAgICAgICAgICAgICANCiAgICAgICAgICAgICAgICAgICAgICAg ICAgICAgICAgICAgICAgICAgICAgICAgICAgICAgIC AgICAgICAgICAgICAgICAgICAgICAgICAgICAgICAgICAgICAgICAgICAgICANCiAgICAgICAgICAgIC AgICAgICAgICAgICAgICAgICAgICAgICAgICAgICAgICAgICAgICAgICAgICAgICAgICAgICAgICAgIC AgICAgICAgICAgICAgICAgICAgICAgICAgICANCiAg ICAgICAgICAgICAgICAgICAgICAgICAgICAgICAgICAgICAgICAgICAgICAgICAgICAgICAgICAgICAg ICAgICAgICAgICAgICAgICAgICAgICAgICAgICAgICAgICAgICANCiAgICAgICAgICAgICAgICAgICAg ICAgICAgICAgICAgICAgICAgICAgICAgICAgICAgIC AgICAgICAgICAgICAgICAgICAgICAgICAgICAgICAgICAgICAgICAgICAgICAgICANCiAgICAgICAgIC AgICAgICAgICAgICAgICAgICAgICAgICAgICAgICAgICAgICAgICAgICAgICAgICAgICAgICAgICAgIC AgICAgICAgICAgICAgICAgICAgICAgICAgICAgICAN CiAgICAgICAgICAgICAgICAgICAgICAgICAgICAgICAgICAgICAgICAgICAgICAgICAgICAgICAgICAg ICAgICAgICAgICAgICAgICAgICAgICAgICAgICAgICAgICAgICAgICANCjw/rTOgS6hspFFdrsO0I7ss We8SMm8NOC2ki4CeDWSzHFmtoqRsTfdJLrRwVVBtJc vSIvj1NWduNO5UvBPtA8WtC7HhLTviPV6THYFpEQYhrBEqWSBqPGPjZjC0QVIkNThoCI4UhBQaWUziFS PeXZBhMfCrZOAlPWWpFYBhGTSnMFHUEJ7JVwHdY1WaiC61VBLDCm5+SEdkfgShRdaNBlZ5DCLbt3FqWM q1DL2NQBNkZlpwc2MxUDEnTEJCIOrlSB0AILV0YCZp LFNlGg8XRGPxX303yhSkCR2MSr4CRbCkSZ4saq4QYYXaGNKnEvbADrc7ZDlcZN3JrSDwYGeRwz1yegOa tfUId5RnyeLryLOPyLDfrIOgLFTVFSVjdLesYWSmDFUjHANnElwcJeMiTCCdTVtwGPOZACxJCxQmT7Yj q5YwQoL8EZAvErVeWDnvKVKaOlG5BK66vTxoYB2FGR SkRQDbUB10JVI5GYHuKu2OVr1FElXzTX1diy4IXLMpPKAzLvgOMxg3QQaqSI0WzXMhM9XenMQzs9iWCx AdL3BJXVR5LSXeUs4YNUPaUhFfYYXjZLgjAW4bONVoRKOFwWhgnoY7ZO3WWD6wxeDqUU6DZzRaQq3oKz 4CQmFmU4YvF1YxTMQcIWWTRIxsTT5KCLgvXL8aCE5Z c2PHwKEumG5sns4XJIFrHKRxFaxzhz5IEbqiY7U5wLvnRBLeGpdrFJUSEKinRE2MZOAyAWI2JGLcPEJm UQOTDnAvD01rVU5VM9Aep95zMvF2SMQlMwJqMAmcFN51fPbqrmIvwQEnsQaeED9AOr9+DQplbmRvYmoN WwdcSOVFHcCyMZLMRuZsCYHeCZRvRZFaTyG1UzKhEn 3SIEMxGGMdFOYpAsQlZRLmKOVzKScpOGNyVBAqQRw3TPWgHHWuCT3CNfVyZMBhCCCnEkLoBCVhFKZnzf 8KIYMqXUYhYYV7CfPuQSJwCFOmVRlhLSJkENDuClr9TMLkUFZmEC5IDpQqULInROBhCLNzESIoDPGedf 7GVNRrMMBiGZP7ZaIdNCRaVZLdAQmnRMTlGSJ3SNAi ONEaXQCoZN0MJuPtGMLcGEX4EZTrHEFhDOMmdn7JAXApFHHpCyF6TITiLYKlPMMmUBloGIYeCME5MtVh FRHhJFZuFJ8UFdXhKLZiTWp0SanjZFAsQUMabu8LZEXuIBMpMCh0BsEuPYDiYHZlOEttMIFqXDH4SIm9 MQKiORNrFL1INdRxUIDnUCvdVosnPKVkMLVhdv7LIN QsVYWjVTOxVrCfBSVqJEWlUCcmKKRdCLGrXwH5RFKhGDOnBQ0DRrCpYKQwPOF1XLyhHENfCJHoun3DBN GyAJEdQYr9EfNpTHWwXSYqIBaqJOHdMGKaDTyeQUBlCRKoZR8MNhBxMFPzRvCzHYImHIDoOSQtvw7CYQ IyQUXqZkAmKHZiKQKyEHJvWDirOWVfVXDmIez2BUAq QWEiOJ3YMhLgRTVdHxG2JaJnCEMrMXTkxv7JCNBcFJYxYvluIJFkRGRiWBQtUHubIYHbMWD8GKk6TVLa WDSbKD4QGyHlWNLgUwVpJmJgEIOjAUEnjh5TAMCnECQwVXTuNyRiYXNjWMFwNRntKATdTFY5Pka5QBQj CDVnHB0BTcIqCYXxXmLwHvOmQMNwKBTksx3ENLDyBD AtGvLsNmFqDCHnUTZdWPaeRZRwTDQ8Pzw7HAVcLTCsIN6JTaUhYADuExi0LjPjQAVeBALxye5LDARlFI JlDBx9NJShLJScMAIhSMlfGMDlXUXyHQM3JWCwSVUcJB9SRoOwSKQdRIQoOIovDRRnAAXrkp8VWGXsCZ K4IHK1YkLoNAWcKUMjTBwzYAWuHKYvYMGfZCUpAHTz QW1HGuNlEZEaYIAnSrrdHXLiBATflm4IXYStUDE6MhK2FEQnOBNaZNUaPFvoSYDhGGNyXuDqWWMyHOKo CL0HOxRgZHoiDMNYRks1OZbyH2m9ZVH7Ir2HH2Tkr1SsWEOaYEVQGNlfYZ2ezgSfPSLrIy5DJ8eYMimq UKKzLOurVtPcFeQ7ZOY4KYJfTEnlVKVfXZXuWLsfIO 9fNCRrQmL2P7FjQWPaNGH4RLM6LDKnF5D4T8S4ZJDuD8L7ToLnVT8LAi4UVnU0DYC0bAUmEt4HRPP8BJ HIZtUwIP5XCEg= ID Date Data Source [id number] 10/11/2020 12:42:[address] [facility] Name Value Range Interpretation Code Description Data Rosa rce(s) Supporting Document(s) Progress Note [facility] IQHGDc4cXfQONvCo55/OHMxoHLDeg9FqTVvcOIn4IGzuUJEsP2AyGSM1eW7nNIG5WWyEOlJlIzEdKoP7 lbm [file] s5vmixGBR+/xGx3/Qffro/ZcMd+hGw5drcNrpo [file] RwCnJ1AOZmREU5LBalJYK1MjG+CH5zIGz+Fp7Hy5EupdT8sqSrFVnnHZW5Dx8ZNIPEV4COMc== ID Date Data Source [id number] 10/07/2020 08:36:00 AM EST [facility] ([facility] Name Value Range Interpretation Code Description Data Rosa rce(s) Supporting Document(s) [facility] test result [facility] ([facility] ID Date Data Source [id number] 09/20/2020 08:37:00 AM EST [facility] Name Value Range Interpretation Code Description Data Rosa rce(s) Supporting Document(s) Progress Note [facility] DSXZYu4iSiCNPnHs30/AEJnuZNUdp4SkJKplMFq4TTooYCYwS8XgJYC3eO1oEVV4KGaRRaGeExPlWpY1 lbm FfYacMJpFnBWUgDhqDNkHgVFzsFilkvGMlST5SlJY3YXQuK31xSSLmJVAeA8JdWYH0VvH+Ph3NKEMfsC VzKC5PNabDvC6kw8u5MF5r7P+wzjTV3ku8gIl0LKQLgxs6lwHQnengXhr8GWutp6iaZQhyb+lPLXnvpU MqE5yDf4/EVjybS48VEjTZ78VtCsrqn//pPgtD3/dd +d/io7StiuS0s/9oh22C8yQp8j+yfEqdU1fMpyN/mI596t0/+Urm5n2yqqok9fMIShSTbk/y4/iyi6Pv 7iRju+mdkzv0iGl+0981h7Pn2WDxP+Rosy//YCq06ol2kuklmBvpGi4m7YbG0YPv09XI/1gigCE20YKwk [file] 4+IKtcyQKaoEeiURMTVoP4JUH8SGcyNOAWVh0V Procedure Social History Code Duration Value Status Description Data Source(s ) Alcohol intake 11/17/2020 12:00:00 AM EST Current drinker of al cohol (finding) [facility] Tobacco use and exposure 10/11/2020 12:00:00 AM EST Never used [facility] Tobacco smoking status [facility] 10/11/2020 12:00:00 AM EST Never smoker [facility] Alcohol intake 10/11/2020 12:00:00 AM EST Current drinker of al cohol (finding) [facility] Vital Signs ID Date Data Source UNK Name Value Range Interpretation Code Description Data Source(s) Body temperature 98.0 [degF] 98.0 [degF] [facility] ([facility] Systolic blood pressure 142 mm[Hg] 142 mm[Hg] M EDENT ([facility] Diastolic blood pressure 94 mm[Hg] 94 mm[Hg] [facility] ([facility] Heart rate 88 /min 88 /min [facility] ([facility] Respiratory rate 18 /min 18 /min [facility] ( [facility] Body height 71 [in_i] 71 [in_i] [facility] ([facility] 5'11" Body weight 197.00 [lb_av] 197.00 [lb_av] MED[facility] T ([facility] [place] body weight 172 [lb_av] 172 [lb_av] [facility] T ([facility] Body mass index (BMI) [Ratio] 27.5 kg/m2 27.5 k g/m2 [facility] ([facility] Oxygen saturation in Arterial blood by Pulse oximetry 90 % 90 % [facility] ([facility] Systolic blood pressure 154 mm[Hg] 154 mm[Hg] M EDENT ([facility] ) Diastolic blood pressure 96 mm[Hg] 96 mm[Hg] [facility] ([facility]) Body temperature 98.8 [degF] 98.8 [degF] [facility] ([facility]) Body height 70 [in_i] 70 [in_i] [facility] ([facility]) 5'10" Body weight 200.25 [lb_av] 200.25 [lb_av] MEDEN T ([facility]) Body mass index (BMI) [Ratio] 28.7 kg/m2 28.7 k g/m2 [facility] ([facility]) [place] body weight 166 [lb_av] 166 [lb_av] MEDEN T ([facility]) Body weight 90.833 kg 90.833 kg [facility] ([facility]) Body surface area Derived from formula 2.09 m2 2.09 m2 [facility] ([facility]) [place] body weight 172 [lb_av] 172 [lb_av] MED[facility] T ([facility] Body mass index (BMI) [Ratio] 28.0 kg/m2 28.0 k g/m2 [facility] ([facility] Systolic blood pressure 136 mm[Hg] 136 mm[Hg] M EDENT ([facility] Diastolic blood pressure 88 mm[Hg] 88 mm[Hg] [facility] ([facility] Body temperature 99.2 [degF] 99.2 [degF] [facility] ([facility] Heart rate 96 /min 96 /min [facility] ([facility] Respiratory rate 16 /min 16 /min MEDENT ( [facility] Body height 71 [in_i] 71 [in_i] MEDENT ([facility] 5'11" Body weight 201.00 [lb_av] 201.00 [lb_av] MEDEN T ([facility] Oxygen saturation in Arterial blood by Pulse oximetry 95 % 95 % MEDENT ([facility] Body temperature 97.7 [degF] 97.7 [degF] MEDENT ([facility] Body weight 201.00 [lb_av] 201.00 [lb_av] MEDEN T ([facility] Body height 71 [in_i] 71 [in_i] MEDENT ([facility] 5'11" Systolic blood pressure 140 mm[Hg] 140 mm[Hg] M EDENT ([facility] Diastolic blood pressure 70 mm[Hg] 70 mm[Hg] MEDENT ([facility] Heart rate 81 /min 81 /min MEDENT ([facility] Respiratory rate 16 /min 16 /min MEDENT ( [facility] [place] body weight 172 [lb_av] 172 [lb_av] MEDEN T ([facility] Body mass index (BMI) [Ratio] 28.0 kg/m2 28.0 k g/m2 MEDENT ([facility] Oxygen saturation in Arterial blood by Pulse oximetry 98 % 98 % MEDENT ([facility] [place] body weight 172 [lb_av] 172 [lb_av] MEDEN T ([facility] Respiratory rate 18 /min 18 /min MEDENT ( [facility] Body height 71 [in_i] 71 [in_i] MEDENT ([facility] 5'11" Body weight [...] [lb_av] MEDEN T ([facility] [place] body weight 172 [lb_av] 172 [lb_av] MEDEN [...] [facility] ([facility] 5'11" Heart rate 96 /min 96 /min MEDENT ([facility] Body weight 199.00 [lb_av] 199.00 [lb_av] MEDEN T ([facility] Respiratory rate 20 /min 20 /min MEDENT ( [facility] Systolic blood pressure 124 mm[Hg] 124 mm[Hg] M EDENT ([facility] Diastolic blood pressure 88 mm[Hg] 88 mm[Hg] MEDENT ([facility] Body temperature 98.3 [degF] 98.3 [degF] MEDENT ([facility] [place] body weight 172 [lb_av] 172 [lb_av] MEDEN T ([facility] Body mass index (BMI) [Ratio] 27.8 kg/m2 27.8 k g/m2 ALESSANDRO ([facility] Oxygen saturation in Arterial blood by Pulse oximetry 97 % 97 % ALESSANDRO ([facility] ID Date Data Source [id number] 11/17/2020 12:07:[address] [facility] Name Value Range Interpretation Code Description Data Source(s) WEIGHT [address] [facility] HEIGHT [address] [facility]
[2021-09-21] MEDS ORDERED: FLOM0.4C39 PO (15:47)
[2021-09-21] MEDS ORDERED: FENO145T7 PO (15:47)
[2021-09-21] MEDS ORDERED: VITATAB73 PO (15:47)
[2021-09-21] MEDS ORDERED: HOME MED LIST COMPLETE! XX SCH (15:50)
[2021-09-21 16:15] VITALS: BP 183/97
[2021-09-21] MEDS: NORCO, ANEXSIA 5/325MG TABLET (HYDROcodone/ACETAMINOPHEN) PO PRN (16:58)
--- NOTE | 2021-09-21 18:58 | HPEPDOC ---
[facility] Medical History & Physical Date of Admission Sep 21, 2021 Date of Service: Sep 21, 2021 Attending Physician: JHOAN JACKSON MD History and Physical CHIEF COMPLAINT: L back pain HISTORY OF PRESENT ILLNESS: 61 yo M with a history of chronic neck pain, cervical myelopathy with left gre ater than right weakness with chronic L foot drop for which he wears a splint/stabilizer, depression, hypertension, cervical surgery C2-7, history of alcohol use disorder for which he denies recent drinking, who presented 6d after a fall down his stairs at home and hit his head with brief LOC but did not present to the hospital, i/s/o ambulating without his foot drop stabilizer and also later reportedly after having taken his norco at the same time with baclofen. He presented to urgent clinic 2d later where they diagnosed with rib fractures and prescribed him a lidocaine patch and continuation of his norco and he went home, but today decided to present to the ED because the pain is severe in his left back. He reported some R arm parasthesias that are new since the fall but otherwise has stable LUE and LLE weakness without any other noted strength and sensation changes. He otherwise denies fever, chills, nausea, emesis, headaches, vision changes, substernal chest pain, palpitations, stool or urine incontinence or mobility changes from his baseline. In the ED, he was hypertensive but otherwise afebrile and breathing comfortably on room air. WBC was 6.7, hgb 14.5, platelets 321, na 140, K 3.6, BUN 14, Cr 0.93, platelets 148, AST 35, ALT 42, Tbili 0.5, and he had a CT head that fort unately showed no bleeding, CT of C-spine that showed no fracture or subluxation, CT of chest with contrast that showed a small L pleural effusion, non-displaced 6th through 9th posterior left rib fractures and no pneumothorax, and MRI of C-spine that showed no cord edema but known chronic severe stenoses at various levels and prior fusions (please see read below). Of note, the ED physician did speak thoracic surgery about the small pleural effusion that Dr. Dodge recommended no surgical intervention. He is now being admitted to medicine for pain management of his posterior rib fractures and PT/OT for safe discharge planning. PAST MEDICAL HISTORY: 1. Alcoholism. 2. Alcohol abuse. 3. Chronic pancreatitis. 4. Cervical myelopathy with left greater than right chronic neck pain. 5. Depression. 6. Hypertension. 7. Pancreatitis. 8. Diverticulosis. 9. Bradycardia. PAST SURGICAL HISTORY: 1. Cholecystectomy. 2. Appendectomy. 3. Cervical surgery C2-7. 4. Left ACL repair. HOME MEDICATIONS: - amitriptyline 50 mg nightly - baclofen 20 daily - Citalopram 30 daily - fish oil 1 gram daily - hydrochlorothiazide 25 daily - Losartan 50 daily - MiraLAX 1 packet daily ALLERGIES: NORVASC versus PROTONIX. FAMILY HISTORY: Father of heart attack at 76, mother of heart attack 63, sister of cervical cancer. SOCIAL HISTORY: Has a history of alcohol abuse but denies recent use Denies smoking Denies illicit drug use REVIEW OF SYSTEMS: Per HPI, 12-point system otherwise negative. PHYSICAL EXAMINATION: VITAL SIGNS: see below GENERAL: Awake, alert and oriented x 3, NAD, conversational. EYES: Anicteric sclerae, no injection, EOMI, PERRLA ENT: MMM NECK: supple CHEST: CTAB, breathing comfortably without respiratory distress. No wheezing, rales or rhonchi. Has no pain in anterior chest but has significant pain with palpation of left mid back. CARDIAC: RRR, no m/r/g ABDOMEN: Soft, normoactive bowel sounds, no rebound or guarding. EXTREMITIES: No pitting edema, cyanosis or clubbing. NEURO: CN 3-12 intact, clear speech, 5/5 RUE and RLE, 4/5 LUE and 4/5 LLE per baseline. Sensation intact throughout. LABORATORY DATA: Reviewed above. See below. IMAGING: MRI C-spine: FINDINGS: Vertebrae: Ventral fixation plate and screws are noted at C3 and C4. There are vertical rods with pedicle screws at C3, C4 and C6. There are corresponding laminectomy changes. There is no fracture. Spinal cord: Artifact from metallic hardware limits evaluation. C2-C3: There is a shallow disc osteophyte complex. There is mild facet hypertrophy. There is severe bilateral neural foraminal narrowing. C3-C4: There are fusion changes with laminectomy. Metallic artifact limits evaluation. The spinal canal is patent. C4-C5: There are fusion changes with laminectomy. Metallic artifact limits evaluation. The spinal canal is patent. C5-C6: There are fusion changes with laminectomy. There is a disc osteophyte complex and facet hypertrophy. There is severe bilateral neural foraminal narrowing. C6-C7: There are fusion changes with laminectomy. There is a diffuse disc osteophyte complex. There is facet hypertrophy. There is severe bilateral neural foraminal narrowing. C7-T1: There is a shallow disc osteophyte complex. There is moderate right and mild left facet hypertrophy. There is moderate right neural foraminal narrowing. Soft tissues: Unremarkable. Vertebral arteries: Expected flow voids in the vertebral arteries. IMPRESSION: 1. Multilevel fusion changes. Metallic artifact limits evaluation. 2. Degenerative disc disease and spondylosis. At C2/3, C5/6 and C6/7, changes contribute to severe bilateral neural foraminal narrowing. CT head: Brain: There is no acute intracranial hemorrhage or mass effect. Mild diffuse volume loss is within the range of normal for patient age. There are small vessel ischemic changes within the periventricular and subcortical white matter, but the normal calvillo/white matter delineation is maintained. Cerebral ventricles: No ventriculomegaly. Paranasal sinuses: Visualized sinuses are unremarkable. No fluid levels. Mastoid air cells: Visualized mastoid air cells are well aerated. Bones/joints: Unremarkable. No acute fracture. Soft tissues: Unremarkable. IMPRESSION: No acute hemorrhage or calvarial fracture. CT chest with IV contrast: Bibasilar atelectasis (left greater than right) and small left pleural effusion are noted along with nondisplaced 6th through 9th posterior left rib fractures. No pneumothorax. Remainder of the lung walters are well aerated and clear. The mediastinum demonstrates normal thoracic aorta, pulmonary vasculature, and heart/pericardium. There is no evidence for mediastinal trauma/injury. Tracheobronchial tree is patent. No adenopathy. IMPRESSION: Nondisplaced left posterior 6th through 9th rib fractures with bibasilar atelectasis (left greater than right) and small left pleural effusion. CT of C-spine: FINDINGS: Bones/joints: Ventral fixation plate and screws noted at C3 and C4, with intervertebral spacer material. There are vertical rods with pedicle screws at C3, C4 and C6, with corresponding laminectomy defects. There is intervertebral spacer material at C4/5 and C5/6. Discs/Spinal canal/Neural foramina: At C6/7, disc osteophyte complex and facet hypertrophy contribute to moderate to severe right and moderate left neural foraminal narrowing. Lungs: Lung apices are normal. Soft tissues: Unremarkable. IMPRESSION: No acute fracture CT A/P: Liver, spleen, pancreas, bilateral adrenal glands and kidneys are normal. There is no evidence for solid organ injury. The enteric system including stomach, small, and large bowel appears normal. No evidence for obstruction or acute inflammatory process. Normal terminal ileum and appendix are identified in the right lower quadrant. Scattered diverticula noted without acute diverticulitis. Pelvis demonstrates normal bladder and age-appropriate prostate/seminal vesicles. No ascites. No free air. No intraperitoneal or retroperitoneal adenopathy. Abdominal aorta and vasculature appear normal. Musculoskeletal structures of the abdomen and pelvis are intact and without acute osseous abnormality. Lung bases demonstrate bibasilar atelectasis (left greater than right) and small left pleural effusion along with nondisplaced posterior left 7th through 10th rib fractures. IMPRESSION: No acute abdominopelvic pathology appreciated. Lung base findings including nondisplaced left rib fractures. MICROBIOLOGY: Please see below. ASSESSMENT: 61 yo M with a history of chronic neck pain, cervical myelopathy with left greater than right weakness with chronic L foot drop for which he wears a splint/stabilizer, depression, hypertension, cervical surgery C2-7, history of alcohol use disorder for which he denies recent drinking, who presented 6d after a fall down his stairs at home and hit his head with brief LOC but did not present to the hospital, i/s/o ambulating without his foot drop stabilizer and also later reportedly after having taken his norco at the same time with baclofen who now presented to the ED for persistent L back pain with imaging showing non-displaced 6th through 9th posterior left rib fractures and is now being admitted to medicine for pain management of his posterior rib fractures and PT/OT for safe discharge planning. Rib fractures: -2tabs norco q6hP for severe pain -30mg IV q6HP toradol for moderation pain -PT/OT -Imaging as noted above -Thankfully only has a small L pleural effusion which could represent a small hemothorax that thoracic recommended medical observation and management, without a pneumothorax -incentive spirometry Chronic back pain with extensive back surgery history and severe degenerative disease with chronic severe stenoses: -follows with neurosurgery at [place], [place], to follow up outpatient -MRI of C-spine did not show acute pathology or cord edema -clinically his exam is stable per baseline -Pain management as detailed above, and will also continue home baclofen 20 TID History of alcohol use disorder: -Denies recent alcohol, but in setting of heavily traumatic fall while on psycho tropic meds with LOC and no hospital presentation after such, will place on CIWA at least for monitoring for now GERD: -continue home omeprazole BPH: -continue home tamsulosin HTN: -continue losartan per home dosing HLD: -continue fenofibrate DVT ppx: Lovenox SC Vital Signs Vital Signs Date Time Temp Pulse Resp B/P (MAP) Pulse Ox O2 Delivery O2 Flow Rate FiO2 09/21/21 17:28 18 09/21/21 15:46 80 96 09/21/21 15:30 168/88 (114) 09/21/21 09:16 Room Air 09/21/21 06:09 98.0 Laboratory Data Labs 24H Laboratory Tests 2 09/21/21 06:09: Immature Granulocyte % (Auto) 0.3, Neutrophils (%) (Auto) 64.5, Lymphocytes (%) (Auto) 28.0, Monocytes (%) (Auto) 6.5, Eosinophils (%) (Auto) 0.6, Basophils (%) (Auto) 0.1, Neutrophils # (Auto) 4.3, Lymphocytes # (Auto) 1.9, Monocytes # (Auto) 0.4, Eosinophils # (Auto) 0.0, Basophils # (Auto) 0.0, Nucleated Red Blood Cells % (auto) 0.0, Anion Gap 7L, Glomerular Filtration Rate > 60.0, Calcium Level 9.9, Total Bilirubin 0.5, Aspartate Amino Transf (AST/SGOT) 35, Alanine Aminotransferase (ALT/SGPT) 42, Alkaline Phosphatase 86, Total Protein 8.7H, Albumin 4.1, Albumin/Globulin Ratio 0.9 09/21/21 07:34: POC Glucose (Misc Panel) 120H, POC Sodium (Misc Panel) 141, POC Potassium (Misc Panel) 3.9, POC Chloride (Misc Panel) 106, POC Total CO2 (Misc Panel) 23.0, POC Blood Urea Nitrogen (Misc Panel 14, POC Ionized Calcium (Misc Panel) 4.9, POC Creatinine (Misc Panel) 0.8, POC Hematocrit (Misc Panel) 38.0 09/21/21 07:36: POC Troponin I (Misc) 0.00 09/21/21 07:53: Coronavirus (COVID-19)(PCR) NEGATIVE, Influenza Type A (RT-PCR) NEGATIVE, Influenza Type B (RT-PCR) NEGATIVE, Respiratory Syncytial Virus (PCR) NEGATIVE CBC/BMP Laboratory Tests 09/21/21 06:09 Home Medications Scheduled Fenofibrate Nanocrystallized (Fenofibrate) 145 Mg Tablet, 145 MG PO DAILY Losartan Potassium (Losartan Potassium) 100 Mg Tab, 100 MG PO DAILY Omeprazole (Omeprazole) 40 Mg Capsule.dr, 40 MG PO DAILY Tamsulosin HCl (Flomax) 0.4 Mg Capsule, 0.4 MG PO QHS Vitamin B Complex (Vitamin B Complex) 1 Each Tablet, 1 TAB PO DAILY Scheduled PRN Baclofen (Baclofen) 20 Mg Tab, 20 MG PO TID PRN for MUSCLE SPASMS Hydrocodone/Acetaminophen (Hydrocodone-Acetamin 5-325 mg) 1 Tab Tab, 1 TAB PO BID PRN for PAIN MDD 4 Allergies Coded Allergies: amlodipine (Verified Allergy, Intermediate, FACIAL SWELLING/RASH, 08/03/21) pantoprazole (Verified Allergy, Intermediate, FACIAL SWELLING/RASH, 08/03/21) A-FIB/CHADSVASC A-FIB History Current/History of A-Fib/PAF?: No Current PO Anticoag Therapy: No Age/Risk Factor Scoring CHADSVASC: CHADSVASC Response (Comments) Value Age Risk Factor Age < 65 years old 0 Gender Risk Factor Male 0 Hx of CHF No 0 Hx of HTN Yes 1 Hx of Stroke/TIA/or VTE No 0 Hx of Diabetes No 0 Hx of Vascular Disease No 0 Total 1 Treatment Treatment ordered: NONE Reason Anticoagulant not given: Not indicated/[id number] JHOAN JACKSON MD Sep 21, 2021 18:58
[2021-09-21] MEDS: TAMSULOSIN 0.4 MG CAP PO SCH (21:19)
[2021-09-21] MEDS: BACLOFEN 10 MG TAB PO SCH (21:19)
[2021-09-21] MEDS: KETOROLAC 30 MG/ML 1ML VIAL IV PRN (21:20)
[2021-09-21 22:00] VITALS: BP 157/91
[2021-09-21] MEDS: RAMELTEON 8 MG TAB (ROZEREM) PO PRN (22:08)
[2021-09-22] VITALS (7 sets, daily range): BP systolic 149–175; BP diastolic 82–97
[2021-09-22] MEDS: NORCO, ANEXSIA 5/325MG TABLET (HYDROcodone/ACETAMINOPHEN) PO PRN ×3 (03:48→21:07)
[2021-09-22 07:35] LABS: HEMOGLOBIN 12.6 g/dl (13.5-17.5); MEAN CORPUSCULAR HEMOGLOBIN 32.6 pg (27.0-33.0); MEAN CORPUSCULAR HGB CONC 33.2 g/dl (32.0-36.5); MEAN CORPUSCULAR VOLUME 98.2 fl (80.0-96.0); PLATELET COUNT, AUTOMATED 269 10^3/uL (150-450); RED BLOOD COUNT 3.87 10^6/uL (4.30-6.10); WHITE BLOOD COUNT 4.9 10^3/uL (4.0-10.0)
[2021-09-22 07:55] LABS: BLOOD UREA NITROGEN 18 MG/DL (7-18); CALCIUM LEVEL 9.2 MG/DL (8.8-10.2); CARBON DIOXIDE LEVEL 27 MEQ/L (21-32); CHLORIDE LEVEL 104 MEQ/L (98-107); CREATININE FOR GFR 0.83 MG/DL (0.70-1.30); GLOMERULAR FILTRATION RATE > 60.0 (>49); GLUCOSE, FASTING 115 MG/DL (70-100); MAGNESIUM LEVEL 2.2 MG/DL (1.8-2.4); POTASSIUM SERUM 3.9 MEQ/L (3.5-5.1); SODIUM LEVEL 137 MEQ/L (136-145)
[2021-09-22] MEDS: LORazepam 2 MG TAB PO PRN ×2 (09:55→18:16)
[2021-09-22] MEDS: FOLIC ACID 1 MG TAB PO SCH (09:56)
[2021-09-22] MEDS: THIAMINE 100 MG TAB PO SCH ×2 (09:56→21:06)
[2021-09-22] MEDS: VITAMIN B COMPLEX/VIT C CAP PO SCH (09:56)
[2021-09-22] MEDS: LOSARTAN 50MG TABLET PO SCH (10:04)
[2021-09-22] MEDS: FENOFIBRATE 145MG TABLET (TRICOR) PO SCH (10:05)
[2021-09-22] MEDS: BACLOFEN 10 MG TAB PO SCH ×4 (10:05→20:52)
[2021-09-22] MEDS: OMEPRAZOLE 20 MG CAP PO SCH (10:05)
[2021-09-22] MEDS: ENOXAPARIN 40MG/0.4ML SYRINGE (J1650 PER 10MG) SC SCH (10:07)
[2021-09-22] MEDS: MULTIVITAMINS/MINERALS THERAP 1 TAB PO SCH (10:08)
--- NOTE | 2021-09-22 17:55 | IPNPDOC ---
Text Note Date of Service The patient was seen on 09/22/21. NOTE SUBJECTIVE: -No active events overnight. Appears to have some alcohol withdrawal PHYSICAL EXAMINATION: VITAL SIGNS: see below GENERAL: Awake, alert and oriented x 3, NAD, conversational. EYES: Anicteric sclerae, no injection, EOMI, PERRLA ENT: MMM NECK: supple CHEST: CTAB, breathing comfortably without respiratory distress. No wheezing, rales or rhonchi. Has no pain in anterior chest but has significant pain with palpation of left mid back. CARDIAC: RRR, no m/r/g ABDOMEN: Soft, normoactive bowel sounds, no rebound or guarding. EXTREMITIES: No pitting edema, cyanosis or clubbing. NEURO: CN 3-12 intact, clear speech, 5/5 RUE and RLE, 4/5 LUE and 4/5 LLE per baseline. Mildly tremulous LABORATORY DATA: Reviewed above. See below. IMAGING: MRI C-spine: FINDINGS: Vertebrae: Ventral fixation plate and screws are noted at C3 and C4. There are vertical rods with pedicle screws at C3, C4 and C6. There are corresponding laminectomy changes. There is no fracture. Spinal cord: Artifact from metallic hardware limits evaluation. C2-C3: There is a shallow disc osteophyte complex. There is mild facet hypertrophy. There is severe bilateral neural foraminal narrowing. C3-C4: There are fusion changes with laminectomy. Metallic artifact limits evaluation. The spinal canal is patent. C4-C5: There are fusion changes with laminectomy. Metallic artifact limits evaluation. The spinal canal is patent. C5-C6: There are fusion changes with laminectomy. There is a disc osteophyte complex and facet hypertrophy. There is severe bilateral neural foraminal narrowing. C6-C7: There are fusion changes with laminectomy. There is a diffuse disc osteophyte complex. There is facet hypertrophy. There is severe bilateral neural foraminal narrowing. C7-T1: There is a shallow disc osteophyte complex. There is moderate right and mild left facet hypertrophy. There is moderate right neural foraminal narrowing. Soft tissues: Unremarkable. Vertebral arteries: Expected flow voids in the vertebral arteries. IMPRESSION: 1. Multilevel fusion changes. Metallic artifact limits evaluation. 2. Degenerative disc disease and spondylosis. At C2/3, C5/6 and C6/7, changes contribute to severe bilateral neural foraminal narrowing. CT head: Brain: There is no acute intracranial hemorrhage or mass effect. Mild diffuse volume loss is within the range of normal for patient age. There are small vessel ischemic changes within the periventricular and subcortical white matter, but the normal calvillo/white matter delineation is maintained. Cerebral ventricles: No ventriculomegaly. Paranasal sinuses: Visualized sinuses are unremarkable. No fluid levels. Mastoid air cells: Visualized mastoid air cells are well aerated. Bones/joints: Unremarkable. No acute fracture. Soft tissues: Unremarkable. IMPRESSION: No acute hemorrhage or calvarial fracture. CT chest with IV contrast: Bibasilar atelectasis (left greater than right) and small left pleural effusion are noted along with nondisplaced 6th through 9th posterior left rib fractures. No pneumothorax. Remainder of the lung walters are well aerated and clear. The mediastinum demonstrates normal thoracic aorta, pulmonary vasculature, and heart/pericardium. There is no evidence for mediastinal trauma/injury. Tracheobronchial tree is patent. No adenopathy. IMPRESSION: Nondisplaced left posterior 6th through 9th rib fractures with bibasilar atelectasis (left greater than right) and small left pleural effusion. CT of C-spine: FINDINGS: Bones/joints: Ventral fixation plate and screws noted at C3 and C4, with intervertebral spacer material. There are vertical rods with pedicle screws at C3, C4 and C6, with corresponding laminectomy defects. There is intervertebral spacer material at C4/5 and C5/6. Discs/Spinal canal/Neural foramina: At C6/7, disc osteophyte complex and facet hypertrophy contribute to moderate to severe right and moderate left neural foraminal narrowing. Lungs: Lung apices are normal. Soft tissues: Unremarkable. IMPRESSION: No acute fracture CT A/P: Liver, spleen, pancreas, bilateral adrenal glands and kidneys are normal. There is no evidence for solid organ injury. The enteric system including stomach, small, and large bowel appears normal. No evidence for obstruction or acute inflammatory process. Normal terminal ileum a nd appendix are identified in the right lower quadrant. Scattered diverticula noted without acute diverticulitis. Pelvis demonstrates normal bladder and age-appropriate prostate/seminal vesicles. No ascites. No free air. No intraperitoneal or retroperitoneal adenopathy. Abdominal aorta and vasculature appear normal. Musculoskeletal structures of the abdomen and pelvis are intact and without acute osseous abnormality. Lung bases demonstrate bibasilar atelectasis (left greater than right) and small left pleural effusion along with nondisplaced posterior left 7th through 10th rib fractures. IMPRESSION: No acute abdominopelvic pathology appreciated. Lung base findings including nondisplaced left rib fractures. MICROBIOLOGY: Please see below. ASSESSMENT: 61 yo M with a history of chronic neck pain, cervical myelopathy with left greater than right weakness with chronic L foot drop for which he wears a splint/stabilizer, depression, hypertension, cervical surgery C2-7, history of alcohol use disorder for which he denies recent drinking, who presented 6d after a fall down his stairs at home and hit his head with brief LOC but did not present to the hospital, i/s/o ambulating without his foot drop stabilizer and also later reportedly after having taken his norco at the same time with baclofen who now presented to the ED for persistent L back pain with imaging showing non-displaced 6th through 9th posterior left rib fractures and is now being admitted to medicine for pain management of his posterior rib fractures and PT/OT for safe discharge planning. Rib fractures: -2tabs norco q6hP for severe pain -30mg IV q6HP toradol for moderation pain -PT/OT -Imaging as noted above -Thankfully only has a small L pleural effusion which could represent a small hemothorax that thoracic recommended medical observation and management, without a pneumothorax -incentive spirometry -requested Mike Haddad to repair or replace foot drop stabilizer/brace Chronic back pain with extensive back surgery history and severe degenerative disease with chronic severe stenoses: -follows with neurosurgery at [place], [place], to follow up outpatient -MRI of C-spine did not show acute pathology or cord edema -clinically his exam is stable per baseline -Pain management as detailed above, and will also continue home baclofen 20 TID History of alcohol use disorder w/ alcohol withdrawal: -Denies recent alcohol, but in setting of heavily traumatic fall while on psychotropic meds with LOC and no hospital presentation after such, will place on CIWA, added PRN ativan PO GERD: -continue home omeprazole BPH: -continue home tamsulosin HTN: -continue losartan per home dosing HLD: -continue fenofibrate DVT ppx: Lovenox SC VS,Fishbone, I+O VS, Fishbone, I+O Laboratory Tests 09/22/21 05:50 Vital Signs Date Time Temp Pulse Resp B/P (MAP) Pulse Ox O2 Delivery O2 Flow Rate FiO2 09/22/21 06:00 97.3 83 19 175/91 (119) 96 Room Air I&O- Last 24 Hours up to 6 AM 09/22/21 06:00 Intake Total 1200 ml Balance 1200 ml JHOAN JACKSON MD Sep 22, 2021 08:50
[2021-09-22] MEDS: KETOROLAC 30 MG/ML 1ML VIAL IV PRN (18:17)
--- NOTE | 2021-09-22 18:49 | ECGEPIP ---
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
[2021-09-22] MEDS: RAMELTEON 8 MG TAB (ROZEREM) PO PRN (21:05)
[2021-09-22] MEDS: TAMSULOSIN 0.4 MG CAP PO SCH (21:07)
[2021-09-23] VITALS: BP 152/87
[2021-09-23] MEDS: KETOROLAC 30 MG/ML 1ML VIAL IV PRN ×4 (01:41→16:23)
[2021-09-23 05:22] VITALS: BP 154/93
[2021-09-23] MEDS: NORCO, ANEXSIA 5/325MG TABLET (HYDROcodone/ACETAMINOPHEN) PO PRN ×3 (05:24→18:10)
[2021-09-23 05:33] LABS: HEMATOCRIT 37.9 % (42.0-52.0); HEMOGLOBIN 12.8 g/dl (13.5-17.5); MEAN CORPUSCULAR HEMOGLOBIN 32.8 pg (27.0-33.0); MEAN CORPUSCULAR HGB CONC 33.8 g/dl (32.0-36.5); MEAN CORPUSCULAR VOLUME 97.2 fl (80.0-96.0); PLATELET COUNT, AUTOMATED 276 10^3/uL (150-450); WHITE BLOOD COUNT 4.4 10^3/uL (4.0-10.0)
[2021-09-23 05:58] LABS: BLOOD UREA NITROGEN 21 MG/DL (7-18); CALCIUM LEVEL 9.4 MG/DL (8.8-10.2); CARBON DIOXIDE LEVEL 26 MEQ/L (21-32); CHLORIDE LEVEL 107 MEQ/L (98-107); GLOMERULAR FILTRATION RATE > 60.0 (>49); GLUCOSE, FASTING 108 MG/DL (70-100); MAGNESIUM LEVEL 2.4 MG/DL (1.8-2.4); POTASSIUM SERUM 4.1 MEQ/L (3.5-5.1); SODIUM LEVEL 139 MEQ/L (136-145)
[2021-09-23] MEDS: FENOFIBRATE 145MG TABLET (TRICOR) PO SCH (07:36)
[2021-09-23] MEDS: THIAMINE 100 MG TAB PO SCH ×2 (07:36→20:16)
[2021-09-23] MEDS: LOSARTAN 50MG TABLET PO SCH (07:37)
[2021-09-23] MEDS: OMEPRAZOLE 20 MG CAP PO SCH (07:37)
[2021-09-23] MEDS: MULTIVITAMINS/MINERALS THERAP 1 TAB PO SCH (07:37)
[2021-09-23] MEDS: BACLOFEN 10 MG TAB PO SCH ×3 (07:37→20:23)
[2021-09-23] MEDS: VITAMIN B COMPLEX/VIT C CAP PO SCH (07:38)
[2021-09-23] MEDS: FOLIC ACID 1 MG TAB PO SCH (07:38)
[2021-09-23] MEDS: ENOXAPARIN 40MG/0.4ML SYRINGE (J1650 PER 10MG) SC SCH (07:38)
[2021-09-23 08:00] VITALS: BP 156/86
--- NOTE | 2021-09-23 11:13 | IPNPDOC ---
Text Note Date of Service The patient was seen on 09/23/21. NOTE SUBJECTIVE: -No active events overnight. -Had stabilizer repaired yesterday PHYSICAL EXAMINATION: VITAL SIGNS: see below GENERAL: Awake, alert and oriented x 3, NAD, conversational. EYES: Anicteric sclerae, no injection, EOMI, PERRLA ENT: MMM NECK: supple CHEST: CTAB, breathing comfortably without respiratory distress. No wheezing, rales or rhonchi. Still has significant pain with palpation of left mid back. CARDIAC: RRR, no m/r/g ABDOMEN: Soft, normoactive bowel sounds, no rebound or guarding. EXTREMITIES: No pitting edema, cyanosis or clubbing. NEURO: CN 3-12 intact, clear speech, 5/5 RUE and RLE, 4/5 LUE and 4/5 LLE per baseline. LABORATORY DATA: Reviewed IMAGING: MRI C-spine: FINDINGS: Vertebrae: Ventral fixation plate and screws are noted at C3 and C4. There are vertical rods with pedicle screws at C3, C4 and C6. There are corresponding laminectomy changes. There is no fracture. Spinal cord: Artifact from metallic hardware limits evaluation. C2-C3: There is a shallow disc osteophyte complex. There is mild facet hypertrophy. There is severe bilateral neural foraminal narrowing. C3-C4: There are fusion changes with laminectomy. Metallic artifact limits evaluation. The spinal canal is patent. C4-C5: There are fusion changes with laminectomy. Metallic artifact limits evaluation. The spinal canal is patent. C5-C6: There are fusion changes with laminectomy. There is a disc osteophyte complex and facet hypertrophy. There is severe bilateral neural foraminal narrowing. C6-C7: There are fusion changes with laminectomy. There is a diffuse disc osteophyte complex. There is facet hypertrophy. There is severe bilateral neural foraminal narrowing. C7-T1: There is a shallow disc osteophyte complex. There is moderate right and mild left facet hypertrophy. There is moderate right neural foraminal narrowing. Soft tissues: Unremarkable. Vertebral arteries: Expected flow voids in the vertebral arteries. IMPRESSION: 1. Multilevel fusion changes. Metallic artifact limits evaluation. 2. Degenerative disc disease and spondylosis. At C2/3, C5/6 and C6/7, changes contribute to severe bilateral neural foraminal narrowing. CT head: Brain: There is no acute intracranial hemorrhage or mass effect. Mild diffuse volume loss is within the range of normal for patient age. There are small vessel ischemic changes within the periventricular and subcortical white matter, but the normal calvillo/white matter delineation is maintained. Cerebral ventricles: No ventriculomegaly. Paranasal sinuses: Visualized sinuses are unremarkable. No fluid levels. Mastoid air cells: Visualized mastoid air cells are well aerated. Bones/joints: Unremarkable. No acute fracture. Soft tissues: Unremarkable. IMPRESSION: No acute hemorrhage or calvarial fracture. CT chest with IV contrast: Bibasilar atelectasis (left greater than right) and small left pleural effusion are noted along with nondisplaced 6th through 9th posterior left rib fractures. No pneumothorax. Remainder of the lung walters are well aerated and clear. The mediastinum demonstrates normal thoracic aorta, pulmonary vasculature, and heart/pericardium. There is no evidence for mediastinal trauma/injury. Tracheobronchial tree is patent. No adenopathy. IMPRESSION: Nondisplaced left posterior 6th through 9th rib fractures with bibasilar atelectasis (left greater than right) and small left pleural effusion. CT of C-spine: FINDINGS: Bones/joints: Ventral fixation plate and screws noted at C3 and C4, with intervertebral spacer material. There are vertical rods with pedicle screws at C3, C4 and C6, with corresponding laminectomy defects. There is intervertebral spacer material at C4/5 and C5/6. Discs/Spinal canal/Neural foramina: At C6/7, disc osteophyte complex and facet hypertrophy contribute to moderate to severe right and moderate left neural foraminal narrowing. Lungs: Lung apices are normal. Soft tissues: Unremarkable. IMPRESSION: No acute fracture CT A/P: Liver, spleen, pancreas, bilateral adrenal glands and kidneys are normal. There is no evidence for solid organ injury. The enteric system including stomach, small, and large bowel appears normal. No evidence for obstruction or acute inflammatory process. Normal terminal ileum and appendix are identified in the right lower quadrant. Scattered diverticula noted without acute diverticulitis. Pelvis demonstrates normal bladder and age-appropriate prostate/seminal vesicles. No ascites. No free air. No intraperitoneal or retroperitoneal adenopathy. Abdominal aorta and vasculature appear normal. Musculoskeletal structures of the abdomen and pelvis are intact and without acute osseous abnormality. Lung bases demonstrate bibasilar atelectasis (left greater than right) and small left pleural effusion along with nondisplaced posterior left 7th through 10th rib fractures. IMPRESSION: No acute abdominopelvic pathology appreciated. Lung base findings including nondisplaced left rib fractures. MICROBIOLOGY: Please see below. ASSESSMENT: 61 yo M with a history of chronic neck pain, cervical myelopathy with left greater than right weakness with chronic L foot drop for which he wears a splint/stabilizer, depression, hypertension, cervical surgery C2-7, history of alcohol use disorder for which he denies recent drinking, who presented 6d after a fall down his stairs at home and hit his head with brief LOC but did not present to the hospital, i/s/o ambulating without his foot drop stabilizer and also later reportedly after having taken his norco at the same time with baclofen who now presented to the ED for persistent L back pain with imaging showing non-displaced 6th through 9th posterior left rib fractures who was admit amena to medicine for pain management of his posterior rib fractures and PT/OT for safe discharge planning. Rib fractures: -2tabs norco q6hP for severe pain -30mg IV q6HP toradol for moderation pain -PT/OT -Imaging as noted above -Thankfully only has a small L pleural effusion which could represent a small hemothorax that thoracic recommended medical observation and management, without a pneumothorax -incentive spirometry Chronic back pain with extensive back surgery history and severe degenerative disease with chronic severe stenoses: -follows with neurosurgery at [place], [place], to follow up outpatient -MRI of C-spine did not show acute pathology or cord edema -clinically his exam is stable per baseline -Pain management as detailed above, and will also continue home baclofen 20 TID -Mike Haddad repaired the foot drop stabilizer/brace on 09/22/2021 History of alcohol use disorder w/ alcohol withdrawal: -Denies recent alcohol, but in setting of heavily traumatic fall while on psychotropic meds with LOC and no hospital presentation after such, will place on CIWA, PRN ativan PO -No evidence of withdrawal at this time GERD: -continue home omeprazole BPH: -continue home tamsulosin HTN: -continue losartan per home dosing HLD: -continue fenofibrate DVT ppx: Lovenox SC VS,Fishbone, I+O VS, Fishbone, I+O Laboratory Tests 09/23/21 05:07 Vital Signs Date Time Temp Pulse Resp B/P (MAP) Pulse Ox O2 Delivery O2 Flow Rate FiO2 09/23/21 07:37 154/93 09/23/21 05:54 16 09/23/21 05:22 68 09/23/21 05:22 98.2 96 Room Air I&O- Last 24 Hours up to 6 AM 09/23/21 06:00 Intake Total 1850 ml Output Total 1000 ml Balance 850 ml JHOAN JACKSON MD Sep 23, 2021 11:13
[2021-09-23] MEDS: predniSONE 20 MG TAB PO SCH (18:56)
[2021-09-23 19:57] VITALS: BP 155/97
[2021-09-23] MEDS: TAMSULOSIN 0.4 MG CAP PO SCH (20:16)
[2021-09-23] MEDS: RAMELTEON 8 MG TAB (ROZEREM) PO PRN (22:23)
[2021-09-24] MEDS: NORCO, ANEXSIA 5/325MG TABLET (HYDROcodone/ACETAMINOPHEN) PO PRN ×3 (00:06→15:33)
[2021-09-24] MEDS ORDERED: MIRALAX *UNIT DOSE* 17GM PACKET PO PRN (03:25)
[2021-09-24] MEDS ORDERED: MOM 30ML SUSPENSION UDC PO PRN (03:25)
[2021-09-24] MEDS ORDERED: BISACODYL 10 MG SUPP PR PRN (03:25)
[2021-09-24] MEDS: KETOROLAC 30 MG/ML 1ML VIAL IV PRN ×2 (03:38→20:11)
[2021-09-24 06:00] VITALS: BP 152/92
[2021-09-24 08:53] LABS: HEMATOCRIT 38.6 % (42.0-52.0); HEMOGLOBIN 13.3 g/dl (13.5-17.5); MEAN CORPUSCULAR HEMOGLOBIN 32.7 pg (27.0-33.0); MEAN CORPUSCULAR HGB CONC 34.5 g/dl (32.0-36.5); MEAN CORPUSCULAR VOLUME 94.8 fl (80.0-96.0); PLATELET COUNT, AUTOMATED 334 10^3/uL (150-450); RED BLOOD COUNT 4.07 10^6/uL (4.30-6.10)
[2021-09-24] MEDS: VITAMIN B COMPLEX/VIT C CAP PO SCH (09:00)
[2021-09-24] MEDS: THIAMINE 100 MG TAB PO SCH ×2 (09:00→20:10)
[2021-09-24] MEDS: predniSONE 20 MG TAB PO SCH (09:00)
[2021-09-24] MEDS: FENOFIBRATE 145MG TABLET (TRICOR) PO SCH (09:00)
[2021-09-24] MEDS: MULTIVITAMINS/MINERALS THERAP 1 TAB PO SCH (09:00)
[2021-09-24] MEDS: BACLOFEN 10 MG TAB PO SCH ×3 (09:00→21:00)
[2021-09-24] MEDS: DOCUSATE SODIUM 100MG CAPSULE PO SCH ×2 (09:00→20:10)
[2021-09-24] MEDS: OMEPRAZOLE 20 MG CAP PO SCH (09:00)
[2021-09-24] MEDS: FOLIC ACID 1 MG TAB PO SCH (09:01)
[2021-09-24] MEDS: ENOXAPARIN 40MG/0.4ML SYRINGE (J1650 PER 10MG) SC SCH (09:02)
[2021-09-24] MEDS: LOSARTAN 50MG TABLET PO SCH (09:02)
[2021-09-24 09:20] LABS: BLOOD UREA NITROGEN 21 MG/DL (7-18); CALCIUM LEVEL 9.2 MG/DL (8.8-10.2); CARBON DIOXIDE LEVEL 25 MEQ/L (21-32); CHLORIDE LEVEL 104 MEQ/L (98-107); CREATININE FOR GFR 0.88 MG/DL (0.70-1.30); GLOMERULAR FILTRATION RATE > 60.0 (>49); GLUCOSE, FASTING 123 MG/DL (70-100); MAGNESIUM LEVEL 2.4 MG/DL (1.8-2.4); POTASSIUM SERUM 4.4 MEQ/L (3.5-5.1); SODIUM LEVEL 137 MEQ/L (136-145)
--- NOTE | 2021-09-24 11:27 | IPNPDOC ---
Text Note Date of Service The patient was seen on 09/24/21. NOTE SUBJECTIVE: -No active events overnight. -Doing much better today, did well with PT, they do not think he will even need rehab. Recommended that he receives a hand splint from Mike Haddad OBJECTIVE: VITAL SIGNS: see below GENERAL: Awake, alert and oriented x 3, NAD, conversational. EYES: Anicteric sclerae, no injection, EOMI, PERRLA ENT: MMM NECK: supple CHEST: CTAB, breathing comfortably without respiratory distress. No wheezing, rales or rhonchi. Has significant pain with palpation of left mid back. CARDIAC: RRR, no m/r/g ABDOMEN: Soft, normoactive bowel sounds, no rebound or guarding. EXTREMITIES: No pitting edema, cyanosis or clubbing. NEURO: CN 3-12 intact, clear speech, 5/5 RUE and RLE, 4/5 LUE and 4/5 LLE per baseline. LABORATORY DATA: Reviewed. Pending AM labs IMAGING: MRI C-spine: FINDINGS: Vertebrae: Ventral fixation plate and screws are noted at C3 and C4. There are vertical rods with pedicle screws at C3, C4 and C6. There are corresponding laminectomy changes. There is no fracture. Spinal cord: Artifact from metallic hardware limits evaluation. C2-C3: There is a shallow disc osteophyte complex. There is mild facet hypertrophy. There is severe bilateral neural foraminal narrowing. C3-C4: There are fusion changes with laminectomy. Metallic artifact limits evaluation. The spinal canal is patent. C4-C5: There are fusion changes with laminectomy. Metallic artifact limits evaluation. The spinal canal is patent. C5-C6: There are fusion changes with laminectomy. There is a disc osteophyte complex and facet hypertrophy. There is severe bilateral neural foraminal narrowing. C6-C7: There are fusion changes with laminectomy. There is a diffuse disc osteophyte complex. There is facet hypertrophy. There is severe bilateral neural foraminal narrowing. C7-T1: There is a shallow disc osteophyte complex. There is moderate right and mild left facet hypertrophy. There is moderate right neural foraminal narrowing. Soft tissues: Unremarkable. Vertebral arteries: Expected flow voids in the vertebral arteries. IMPRESSION: 1. Multilevel fusion changes. Metallic artifact limits evaluation. 2. Degenerative disc disease and spondylosis. At C2/3, C5/6 and C6/7, changes contribute to severe bilateral neural foraminal narrowing. CT head: Brain: There is no acute intracranial hemorrhage or mass effect. Mild diffuse volume loss is within the range of normal for patient age. There are small vessel ischemic changes within the periventricular and subcortical white matter, but the normal calvillo/white matter delineation is maintained. Cerebral ventricles: No ventriculomegaly. Paranasal sinuses: Visualized sinuses are unremarkable. No fluid levels. Mastoid air cells: Visualized mastoid air cells are well aerated. Bones/joints: Unremarkable. No acute fracture. Soft tissues: Unremarkable. IMPRESSION: No acute hemorrhage or calvarial fracture. CT chest with IV contrast: Bibasilar atelectasis (left greater than right) and small left pleural effusion are noted along with nondisplaced 6th through 9th posterior left rib fractures. No pneumothorax. Remainder of the lung walters are well aerated and clear. The mediastinum demonstrates normal thoracic aorta, pulmonary vasculature, and heart/pericardium. There is no evidence for mediastinal trauma/injury. Tracheobronchial tree is patent. No adenopathy. IMPRESSION: Nondisplaced left posterior 6th through 9th rib fractures with bibasilar atelectasis (left greater than right) and small left pleural effusion. CT of C-spine: FINDINGS: Bones/joints: Ventral fixation plate and screws noted at C3 and C4, with intervertebral spacer material. There are vertical rods with pedicle screws at C3, C4 and C6, with corresponding laminectomy defects. There is intervertebral spacer material at C4/5 and C5/6. Discs/Spinal canal/Neural foramina: At C6/7, disc osteophyte complex and facet hypertrophy contribute to moderate to severe right and moderate left neural foraminal narrowing. Lungs: Lung apices are normal. Soft tissues: Unremarkable. IMPRESSION: No acute fracture CT A/P: Liver, spleen, pancreas, bilateral adrenal glands and kidneys are normal. There is no evidence for solid organ injury. The enteric system including stomach, small, and large bowel appears normal. No evidence for obstruction or acute inflammatory process. Normal terminal ileum and appendix are identified in the right lower quadrant. Scattered diverticula noted without acute diverticulitis. Pelvis demonstrates normal bladder and age-appropriate prostate/seminal ve sicles. No ascites. No free air. No intraperitoneal or retroperitoneal adenopathy. Abdominal aorta and vasculature appear normal. Musculoskeletal structures of the abdomen and pelvis are intact and without acute osseous abnormality. Lung bases demonstrate bibasilar atelectasis (left greater than right) and small left pleural effusion along with nondisplaced posterior left 7th through 10th rib fractures. IMPRESSION: No acute abdominopelvic pathology appreciated. Lung base findings including nondisplaced left rib fractures. MICROBIOLOGY: Please see below. ASSESSMENT: 61 yo M with a history of chronic neck pain, cervical myelopathy with left greater than right weakness with chronic L foot drop for which he wears a splint/stabilizer, depression, hypertension, cervical surgery C2-7, history of alcohol use disorder for which he denies recent drinking, who presented 6d after a fall down his stairs at home and hit his head with brief LOC but did not present to the hospital, i/s/o ambulating without his foot drop stabilizer and also later reportedly after having taken his norco at the same time with baclofen who now presented to the ED for persistent L back pain with imaging showing non-displaced 6th through 9th posterior left rib fractures who was admitted to medicine for pain management of his posterior rib fractures and PT/OT for safe discharge planning. Rib fractures: -2tabs norco q6hP for severe pain -30mg IV q6HP toradol for moderation pain -PT/OT -Imaging as noted above -Thankfully only has a small L pleural effusion which could represent a small hemothorax that thoracic recommended medical observation and management, without a pneumothorax -incentive spirometry -[facility] consulted, likely to be discharged home though now that PT is going quite well -pred 40 for 4d, day 2. Chronic back pain with extensive back surgery history and severe degenerative disease with chronic severe stenoses: -follows with neurosurgery at [place], [place], to follow up outpatient -MRI of C-spine did not show acute pathology or cord edema -clinically his exam is stable per baseline -Pain management as detailed above, and will also continue home baclofen 20 TID -Mike Haddad repaired the foot drop stabilizer/brace on 09/22/2021 -pred 40 for 4d, day 2. History of alcohol use disorder w/ alcohol withdrawal: -Denies recent alcohol -No evidence of withdrawal at this time GERD: -continue home omeprazole BPH: -continue home tamsulosin HTN: -continue losartan per home dosing HLD: -continue fenofibrate DVT ppx: Lovenox SC VS,Fishbone, I+O VS, Fishbone, I+O Vital Signs Date Time Temp Pulse Resp B/P (MAP) Pulse Ox O2 Delivery O2 Flow Rate FiO2 09/24/21 06:00 97.7 87 18 152/92 (112) 97 Room Air I&O- Last 24 Hours up to 6 AM 09/24/21 06:00 Intake Total 1370 ml Output Total 2200 ml Balance -830 ml JHOAN JACKSON MD Sep 24, 2021 07:49
[2021-09-24] MEDS: TAMSULOSIN 0.4 MG CAP PO SCH (20:10)
[2021-09-24] MEDS: RAMELTEON 8 MG TAB (ROZEREM) PO PRN (20:15)
[2021-09-24 21:55] VITALS: BP 131/76
[2021-09-25] MEDS: NORCO, ANEXSIA 5/325MG TABLET (HYDROcodone/ACETAMINOPHEN) PO PRN ×3 (01:45→13:33)
[2021-09-25 06:00] VITALS: BP 138/84
[2021-09-25 08:44] LABS: HEMATOCRIT 41.8 % (42.0-52.0); MEAN CORPUSCULAR HEMOGLOBIN 32.4 pg (27.0-33.0); MEAN CORPUSCULAR HGB CONC 33.5 g/dl (32.0-36.5); MEAN CORPUSCULAR VOLUME 96.8 fl (80.0-96.0); PLATELET COUNT, AUTOMATED 350 10^3/uL (150-450); RED BLOOD COUNT 4.32 10^6/uL (4.30-6.10); WHITE BLOOD COUNT 7.3 10^3/uL (4.0-10.0)
[2021-09-25] MEDS: ENOXAPARIN 40MG/0.4ML SYRINGE (J1650 PER 10MG) SC SCH (09:00)
[2021-09-25] MEDS: BACLOFEN 10 MG TAB PO SCH (09:00)
[2021-09-25 09:13] LABS: BLOOD UREA NITROGEN 24 MG/DL (7-18); CALCIUM LEVEL 9.3 MG/DL (8.8-10.2); CARBON DIOXIDE LEVEL 25 MEQ/L (21-32); CHLORIDE LEVEL 107 MEQ/L (98-107); CREATININE FOR GFR 1.03 MG/DL (0.70-1.30); GLOMERULAR FILTRATION RATE > 60.0 (>49); GLUCOSE, FASTING 91 MG/DL (70-100); MAGNESIUM LEVEL 2.5 MG/DL (1.8-2.4); POTASSIUM SERUM 4.5 MEQ/L (3.5-5.1); SODIUM LEVEL 140 MEQ/L (136-145)
[2021-09-25] MEDS: DOCUSATE SODIUM 100MG CAPSULE PO SCH (09:25)
[2021-09-25] MEDS: VITAMIN B COMPLEX/VIT C CAP PO SCH (09:25)
[2021-09-25 09:26] VITALS: BP 138/84
[2021-09-25] MEDS: predniSONE 20 MG TAB PO SCH (09:26)
[2021-09-25] MEDS: FOLIC ACID 1 MG TAB PO SCH (09:26)
[2021-09-25] MEDS: LOSARTAN 50MG TABLET PO SCH (09:26)
[2021-09-25] MEDS: OMEPRAZOLE 20 MG CAP PO SCH (09:26)
[2021-09-25] MEDS: MULTIVITAMINS/MINERALS THERAP 1 TAB PO SCH (09:26)
[2021-09-25] MEDS: FENOFIBRATE 145MG TABLET (TRICOR) PO SCH (09:26)
[2021-09-25] MEDS ORDERED: PRED20TA PO (10:47)
--- NOTE | 2021-09-25 11:01 | DS.PDOC ---
Discharge Summary General Date of Admission Sep 23, 2021 at 11:13 Date of Discharge 09/25/2021 Attending Physician: JHOAN JACKSON MD Discharge Summary PROCEDURES PERFORMED DURING STAY: None ADMITTING DIAGNOSES: Back pain and weakness DISCHARGE DIAGNOSES: Non-displaced 6th through 9th posterior left rib fractures i/s/o recent mechanical traumatic fall down the stairs Acute on chronic cervical myelopathy with left greater than right weakness with chronic L foot drop for which he wears a splint/stabilizer i/s/o recent fall History of Alcohol abuse Chronic cervical myelopathy with left greater than right chronic neck pain and L sided weakness Depression Hypertension COMPLICATIONS/CHIEF COMPLAINT: Multiple Rib Fraction. HISTORY OF PRESENT ILLNESS: 61 yo M with a history of chronic neck pain, cervical myelopathy with left greater than right weakness with chronic L foot drop for which he wears a splint/stabilizer, depression, hypertension, cervical surgery C2-7, history of alcohol use disorder for which he denies recent excessive drinking, who presented 6d after a fall down his stairs at home and hit his head with brief LOC but did not present to the hospital, i/s/o ambulating without his foot drop stabilizer and also later reportedly after having taken his norco at the same time with baclofen. He presented to urgent clinic 2d later where they diagnosed with rib fractures and prescribed him a lidocaine patch and continuation of his norco and he went home, but then decided to present to the ED because the pain is severe in his left back. He reported some R arm parasthesias that are new since the fall but otherwise has stable LUE and LLE weakness without any other noted strength and sensation changes. He otherwise denied fever, chills, nausea, emesis, headaches, vision changes, substernal chest pain, palpitations, stool or urine incontinence or mobility changes from his baseline. HOSPITAL COURSE: In the ED, he was hypertensive but otherwise afebrile and breathing comfortably on room air. WBC was 6.7, hgb 14.5, platelets 321, na 140, K 3.6, BUN 14, Cr 0.93, platelets 148, AST 35, ALT 42, Tbili 0.5, and he had a CT head that fortunately showed no bleeding, CT of C-spine that showed no fracture or subluxation, CT of chest with contrast that showed a small L pleural effusion, non-displaced 6th through 9th posterior left rib fractures and no pneumothorax, and MRI of C-spine showed no cord edema but known chronic severe stenoses at va rious levels and prior fusions (please see read below). Of note, the ED physician did speak with thoracic surgery about the small pleural effusion that Dr. Dodge recommended no surgical intervention. He was admitted to medicine for pain management of his posterior rib fractures and PT/OT for safe discharge planning. His pain medications were uptitrated which did not provide relief and it finally improved with addition of prednisone. His mobility improved as well. He was seen by Mike Haddad and his foot stabilizer was repaired with good effect on his mobility. When PT/OT worked with him they recommended a hand splint for his ongoing L hand developing contracture and I am now giving him a script to present to an appointment with Mike Haddad in the outpatient setting as he is eager to be discharged home immediately. I am also sending him home with 5d of prednisone 20mg for his acute on chronic back pain, script for outpatient physical therapy and requested for his imaging records to be release to his neurosurgeon in [place], [place]. DISCHARGE MEDICATIONS: Please see below. ALLERGIES: Please see below. PHYSICAL EXAMINATION ON DISCHARGE: VITAL SIGNS: Please see below. GENERAL: Awake, alert and oriented x 3, NAD, conversational. EYES: Anicteric sclerae, no injection, EOMI, PERRLA ENT: MMM NECK: supple CHEST: CTAB, breathing comfortably without respiratory distress. No wheezing, rales or rhonchi. CARDIAC: RRR, no m/r/g ABDOMEN: Soft, normoactive bowel sounds, no rebound or guarding. EXTREMITIES: No pitting edema, cyanosis or clubbing. NEURO: CN 3-12 intact, clear speech, 5/5 RUE and RLE, 4/5 LUE and 4/5 LLE per baseline. LABORATORY DATA: Please see below. IMAGING: MRI C-spine: FINDINGS: Vertebrae: Ventral fixation plate and screws are noted at C3 and C4. There are vertical rods with pedicle screws at C3, C4 and C6. There are corresponding laminectomy changes. There is no fracture. Spinal cord: Artifact from metallic hardware limits evaluation. C2-C3: There is a shallow disc osteophyte complex. There is mild facet hypertrophy. There is severe bilateral neural foraminal narrowing. C3-C4: There are fusion changes with laminectomy. Metallic artifact limits evaluation. The spinal canal is patent. C4-C5: There are fusion changes with laminectomy. Metallic artifact limits evaluation. The spinal canal is patent. C5-C6: There are fusion changes with laminectomy. There is a disc osteophyte complex and facet hypertrophy. There is severe bilateral neural foraminal narrowing. C6-C7: There are fusion changes with laminectomy. There is a diffuse disc osteophyte complex. There is facet hypertrophy. There is severe bilateral neural foraminal narrowing. C7-T1: There is a shallow disc osteophyte complex. There is moderate right and mild left facet hypertrophy. There is moderate right neural foraminal narrowing. Soft tissues: Unremarkable. Vertebral arteries: Expected flow voids in the vertebral arteries. IMPRESSION: 1. Multilevel fusion changes. Metallic artifact limits evaluation. 2. Degenerative disc disease and spondylosis. At C2/3, C5/6 and C6/7, changes contribute to severe bilateral neural foraminal narrowing. CT head: Brain: There is no acute intracranial hemorrhage or mass effect. Mild diffuse volume loss is within the range of normal for patient age. There are small vessel ischemic changes within the periventricular and subcortical white matter, but the normal calvillo/white matter delineation is maintained. Cerebral ventricles: No ventriculomegaly. Paranasal sinuses: Visualized sinuses are unremarkable. No fluid levels. Mastoid air cells: Visualized mastoid air cells are well aerated. Bones/joints: Unremarkable. No acute fracture. Soft tissues: Unremarkable. IMPRESSION: No acute hemorrhage or calvarial fracture. CT chest with IV contrast: Bibasilar atelectasis (left greater than right) and small left pleural effusion are noted along with nondisplaced 6th through 9th posterior left rib fractures. No pneumothorax. Remainder of the lung walters are well aerated and clear. The mediastinum demonstrates normal thoracic aorta, pulmonary vasculature, and heart/pericardium. There is no evidence for mediastinal trauma/injury. Tracheobronchial tree is patent. No adenopathy. IMPRESSION: Nondisplaced left posterior 6th through 9th rib fractures with bibasilar atelectasis (left greater than right) and small left pleural effusion. CT of C-spine: FINDINGS: Bones/joints: Ventral fixation plate and screws noted at C3 and C4, with intervertebral spacer material. There are vertical rods with pedicle screws at C3, C4 and C6, with corresponding laminectomy defects. There is intervertebral spacer material at C4/5 and C5/6. Discs/Spinal canal/Neural foramina: At C6/7, disc osteophyte complex and facet hypertrophy contribute to moderate to severe right and moderate left neural foraminal narrowing. Lungs: Lung apices are normal. Soft tissues: Unremarkable. IMPRESSION: No acute fracture CT A/P: Liver, spleen, pancreas, bilateral adrenal glands and kidneys are normal. There is no evidence for solid organ injury. The enteric system including stomach, small, and large bowel appears normal. No evidence for obstruction or acute inflammatory process. Normal terminal ileum and appendix are identified in the right lower quadrant. Scattered diverticula noted without acute diverticulitis. Pelvis demonstrates normal bladder and age-appropriate prostate/seminal vesicles. No ascites. No free air. No intraperitoneal or retroperitoneal adenopathy. Abdominal aorta and vasculature appear normal. Musculoskeletal structures of the abdomen and pelvis are intact and without acute osseous abnormality. Lung bases demonstrate bibasilar atelectasis (left greater than right) and small left pleural effusion along with nondisplaced posterior left 7th through 10th rib fractures. IMPRESSION: No acute abdominopelvic pathology appreciated. Lung base findings including nondisplaced left rib fractures. PROGNOSIS: Good ACTIVITY: As tolerated DIET: regular DISCHARGE PLAN: Home with outpatient PT DISPOSITION: Home DISCHARGE INSTRUCTIONS: Home with outpatient PT, pred 20 daily for 5d, script to Mike Haddad for L hand orthopedic hardware. PCP within 7d. Follow up with neurosurgery within the next 2-4w. ITEMS TO FOLLOWUP ON ON OUTPATIENT: back pain physical therapy DISCHARGE CONDITION: Stable TIME SPENT ON DISCHARGE: 56 minutes. Vital Signs/I&Os Vital Signs Date Time Temp Pulse Resp B/P (MAP) Pulse Ox O2 Delivery O2 Flow Rate FiO2 09/25/21 09:27 18 09/25/21 09:26 138/84 09/25/21 06:00 97.7 59 93 Room Air I&O- Last 24 Hours up to 6 AM 09/25/21 06:00 Intake Total 1320 ml Output Total 700 ml Balance 620 ml Laboratory Data Labs 24H Laboratory Tests 2 09/25/21 08:06: Nucleated Red Blood Cells % (auto) 0.0, Anion Gap 8, Glomerular Filtration Rate > 60.0, Calcium Level 9.3, Magnesium Level 2.5H CBC/BMP Laboratory Tests 09/25/21 08:06 Discharge Medications Scheduled Fenofibrate Nanocrystallized (Fenofibrate) 145 Mg Tablet, 145 MG PO DAILY, (Reported) Losartan Potassium (Losartan Potassium) 100 Mg Tab, 100 MG PO DAILY, (Reported) Omeprazole (Omeprazole) 40 Mg Capsule.dr, 40 MG PO DAILY, (Reported) Prednisone (Prednisone) 20 Mg Tablet, 20 MG PO DAILY Tamsulosin HCl (Flomax) 0.4 Mg Capsule, 0.4 MG PO QHS, (Reported) Vitamin B Complex (Vitamin B Complex) 1 Each Tablet, 1 TAB PO DAILY, (Reported) Scheduled PRN Baclofen (Baclofen) 20 Mg Tab, 20 MG PO TID PRN for MUSCLE SPASMS, (Reported) Hydrocodone/Acetaminophen (Hydrocodone-Acetamin 5-325 mg) 1 Tab Tab, 1 TAB PO BID PRN for PAIN, (Reported) MDD 4 Allergies Coded Allergies: amlodipine (Verified Allergy, Intermediate, FACIAL SWELLING/RASH, 08/03/21) pantoprazole (Verified Allergy, Intermediate, FACIAL SWELLING/RASH, 08/03/21) JHOAN JACKSON MD Sep 25, 2021 11:01
--- NOTE | 2021-09-25 11:02 | IPNPDOC ---
Text Note Date of Service The patient was seen on 09/25/21. NOTE SUBJECTIVE: -No active events overnight. OBJECTIVE: VITAL SIGNS: see below GENERAL: Awake, alert and oriented x 3, NAD, conversational. EYES: Anicteric sclerae, no injection, EOMI, PERRLA ENT: MMM NECK: supple CHEST: CTAB, breathing comfortably without respiratory distress. No wheezing, rales or rhonchi. CARDIAC: RRR, no m/r/g ABDOMEN: Soft, normoactive bowel sounds, no rebound or guarding. EXTREMITIES: No pitting edema, cyanosis or clubbing. NEURO: CN 3-12 intact, clear speech, 5/5 RUE and RLE, 4/5 LUE and 4/5 LLE per baseline. LABORATORY DATA: Reviewed. Has pending AM labs, otherwise recently stable CBC and BMP IMAGING: MRI C-spine: FINDINGS: Vertebrae: Ventral fixation plate and screws are noted at C3 and C4. There are vertical rods with pedicle screws at C3, C4 and C6. There are corresponding laminectomy changes. There is no fracture. Spinal cord: Artifact from metallic hardware limits evaluation. C2-C3: There is a shallow disc osteophyte complex. There is mild facet hypertrophy. There is severe bilateral neural foraminal narrowing. C3-C4: There are fusion changes with laminectomy. Metallic artifact limits evaluation. The spinal canal is patent. C4-C5: There are fusion changes with laminectomy. Metallic artifact limits evaluation. The spinal canal is patent. C5-C6: There are fusion changes with laminectomy. There is a disc osteophyte complex and facet hypertrophy. There is severe bilateral neural foraminal narrowing. C6-C7: There are fusion changes with laminectomy. There is a diffuse disc osteophyte complex. There is facet hypertrophy. There is severe bilateral neural foraminal narrowing. C7-T1: There is a shallow disc osteophyte complex. There is moderate right and mild left facet hypertrophy. There is moderate right neural foraminal narrowing. Soft tissues: Unremarkable. Vertebral arteries: Expected flow voids in the vertebral arteries. IMPRESSION: 1. Multilevel fusion changes. Metallic artifact limits evaluation. 2. Degenerative disc disease and spondylosis. At C2/3, C5/6 and C6/7, changes contribute to severe bilateral neural foraminal narrowing. CT head: Brain: There is no acute intracranial hemorrhage or mass effect. Mild diffuse volume loss is within the range of normal for patient age. There are small vessel ischemic changes within the periventricular and subcortical white matter, but the normal calvillo/white matter delineation is maintained. Cerebral ventricles: No ventriculomegaly. Paranasal sinuses: Visualized sinuses are unremarkable. No fluid levels. Mastoid air cells: Visualized mastoid air cells are well aerated. Bones/joints: Unremarkable. No acute fracture. Soft tissues: Unremarkable. IMPRESSION: No acute hemorrhage or calvarial fracture. CT chest with IV contrast: Bibasilar atelectasis (left greater than right) and small left pleural effusion are noted along with nondisplaced 6th through 9th posterior left rib fractures. No pneumothorax. Remainder of the lung walters are well aerated and clear. The mediastinum demonstrates normal thoracic aorta, pulmonary vasculature, and heart/pericardium. There is no evidence for mediastinal trauma/injury. Tracheobronchial tree is patent. No adenopathy. IMPRESSION: Nondisplaced left posterior 6th through 9th rib fractures with bibasilar atelectasis (left greater than right) and small left pleural effusion. CT of C-spine: FINDINGS: Bones/joints: Ventral fixation plate and screws noted at C3 and C4, with intervertebral spacer material. There are vertical rods with pedicle screws at C3, C4 and C6, with corresponding laminectomy defects. There is intervertebral spacer material at C4/5 and C5/6. Discs/Spinal canal/Neural foramina: At C6/7, disc osteophyte complex and facet hypertrophy contribute to moderate to severe right and moderate left neural foraminal narrowing. Lungs: Lung apices are normal. Soft tissues: Unremarkable. IMPRESSION: No acute fracture CT A/P: Liver, spleen, pancreas, bilateral adrenal glands and kidneys are normal. There is no evidence for solid organ injury. The enteric system including stomach, small, and large bowel appears normal. No evidence for obstruction or acute inflammatory process. Normal terminal ileum and appendix are identified in the right lower quadrant. Scattered diverticula noted without acute diverticulitis. Pelvis demonstrates normal bladder and age-appropriate prostate/seminal vesicles. No ascites. No free air. No intraperitoneal or retroperitoneal adenopathy. Abdominal aorta and vasculature appear normal. Musculoskeletal structures of the abdomen and pelvis are intact and without acute osseous abnormality. Lung bases demonstrate bibasilar atelectasis (left greater than right) and small left pleural effusion along with nondisplaced posterior left 7th through 10th rib fractures. IMPRESSION: No acute abdominopelvic pathology appreciated. Lung base findings including nondisplaced left rib fractures. MICROBIOLOGY: Please see below. ASSESSMENT: 61 yo M with a history of chronic neck pain, cervical myelopathy with left greater than right weakness with chronic L foot drop for which he wears a splint/stabilizer, depression, hypertension, cervical surgery C2-7, history of alcohol use disorder for which he denies recent drinking, who presented 6d after a fall down his stairs at home and hit his head with brief LOC but did not present to the hospital, i/s/o ambulating without his foot drop stabilizer and also later reportedly after having taken his norco at the same time with baclofen who now presented to the ED for persistent L back pain with imaging showing non-displaced 6th through 9th posterior left rib fractures who was admitted to medicine for pain management of his posterior rib fractures and PT/OT for safe discharge planning. Rib fractures: -2tabs norco q6hP for severe pain -30mg IV q6HP toradol for moderation pain -PT/OT -Imaging as noted above -Thankfully only has a small L pleural effusion which could represent a small hemothorax that thoracic recommended medical observation and management, without a pneumothorax -incentive spirometry -Likely to be discharged home now that PT is going quite well -pred 40 for 4d, day 3. -Goal is to consult the pain consult if pain is still significant on 07/27, otherwise may be discharging home once PT clears him Chronic back pain with extensive back surgery history and severe degenerative disease with chronic severe stenoses: -follows with neurosurgery at [place], [place], to follow up outpatient -MRI of C-spine did not show acute pathology or cord edema -clinically his exam is stable per baseline -Pain management as detailed above, and will also continue home baclofen 20 TID -Mike Haddad repaired the foot drop stabilizer/brace on 09/22/2021 -pred 40 for 4d, day 3. -Goal is to consult the pain consult if pain is still significant on 07/27, otherwise may be discharging home once PT clears him -To call Mike Haddad on 10.13 AM for L hand splint History of alcohol use disorder w/ alcohol withdrawal: -Denies recent alcohol -No evidence of withdrawal at this time GERD: -continue home omeprazole BPH: -continue home tamsulosin HTN: -continue losartan per home dosing HLD: -continue fenofibrate DVT ppx: Lovenox SC VS,Fishbone, I+O VS, Fishbone, I+O Vital Signs Date Time Temp Pulse Resp B/P (MAP) Pulse Ox O2 Delivery O2 Flow Rate FiO2 09/25/21 06:00 97.7 59 18 138/84 (102) 93 Room Air I&O- Last 24 Hours up to 6 AM 09/25/21 06:00 Intake Total 1320 ml Output Total 700 ml Balance 620 ml JHOAN JACKSON MD Sep 25, 2021 08:26
== END 2021-09-25 14:00 | disposition home or self-care (01) | DRG 184 ==
LOC: M ED 05:57 → INTOOBSV 14:20 → M MS5PR 14:20 → ENRESERV 14:48 → OBSVTOIN 09-23 11:13
PROVIDERS: ADMIT Internal Medicine; ATTEND Internal Medicine
DX: S22.42XA Multiple fractures of ribs, left side, initial encounter for closed fracture (principal); M47.12 Other spondylosis with myelopathy, cervical region; F10.239 Alcohol dependence with withdrawal, unspecified; M50.00 Cervical disc disorder with myelopathy, unspecified cervical region; F32.A Depression, unspecified; I10 Essential (primary) hypertension; M21.372 Foot drop, left foot; K21.9 Gastro-esophageal reflux disease without esophagitis; N40.0 Benign prostatic hyperplasia without lower urinary tract symptoms; E78.5 Hyperlipidemia, unspecified; W10.9XXA Fall (on) (from) unspecified stairs and steps, initial encounter; Y92.009 Unspecified place in unspecified non-institutional (private) residence as the place of occurrence of the external cause; Y93.9 Activity, unspecified; Y99.8 Other external cause status; M48.02 Spinal stenosis, cervical region; Z20.822 Contact with and (suspected) exposure to COVID-19; Z90.49 Acquired absence of other specified parts of digestive tract; Z98.1 Arthrodesis status; Z79.899 Other long term (current) drug therapy; Z88.8 Allergy status to other drugs, medicaments and biological substances

== ENCOUNTER 2022-07-14 12:53 | Observation (INO) | payer MEDICARE, MEDICAID ==
[~2022-07-14] VITALS: Ht 177.8 cm; Wt 87.2 kg
[~2022-07-14 12:53] MED LIST changes: -CITA40TA4 PO; +CITA40TA7 PO; +FENO145T7; +FENO145T7 PO; +FISH10005 PO; -FISH7.5C PO; +LOSA100T45 PO; -LOSA100T50 PO; +LOSA50TA28 PO; -LOSA50TA88 PO; +OMEP40CA5 PO; +PRED20TA PO; +VITATAB73 PO
[2022-07-14] MEDS ORDERED: AMIT50TA PO (13:21)
[2022-07-14] MEDS ORDERED: ATEN50TA2 PO (13:21)
[2022-07-14] MEDS ORDERED: HYDROmorphone 4MG TABLET PO PRN (13:30)
[2022-07-14] MEDS ORDERED: NS 1,000 ML IV ONE (13:30)
[2022-07-14 13:47] LABS: BASO % 0.3 % (0.0-1.0); EOS # 0.1 10^3/uL (0.0-0.5); EOS % 1.9 % (0.0-3.0); HEMATOCRIT 42.5 % (42.0-52.0); HEMOGLOBIN 14.7 g/dl (13.5-17.5); LYMPH # 1.5 10^3/uL (1.5-5.0); LYMPH % 23.8 % (24.0-44.0); MEAN CORPUSCULAR HEMOGLOBIN 33.6 pg (27.0-33.0); MEAN CORPUSCULAR HGB CONC 34.6 g/dl (32.0-36.5); MEAN CORPUSCULAR VOLUME 97.3 fl (80.0-96.0); MONO # 0.5 10^3/uL (0.0-0.8); MONO % 7.7 % (2.0-8.0); NEUTROPHILS # 4.2 10^3/uL (1.5-8.5); PLATELET COUNT, AUTOMATED 287 10^3/uL (150-450); RED BLOOD COUNT 4.37 10^6/uL (4.30-6.10); WHITE BLOOD COUNT 6.4 10^3/uL (4.0-10.0)
[2022-07-14] MEDS ORDERED: ISOVUE-370 76% 100ML VIAL As Ordered ONE (13:51)
[2022-07-14] MEDS ORDERED: MORPHINE 4 MG/ML 1ML VIAL/SYRINGE IV PRN (14:00)
[2022-07-14 14:01] LABS: INR 0.96; PROTHROMBIN TIME 13.2 SECONDS (12.7-14.5)
[2022-07-14] MEDS: ONDANSETRON 4MG TAB PO PRN (14:06)
[2022-07-14 14:29] LABS: CK-MB VALUE MASS < 1.0 NG/ML (<3.6); CPK CREATINE PHOSPHOKINASE 54 U/L (39-308); MB/CK RELATIVE INDEX 1.85 (< OR =4)
[2022-07-14 14:32] LABS: ALBUMIN 3.8 GM/DL (3.2-5.2); BILIRUBIN,DIRECT 0.2 MG/DL (0.0-0.2); BILIRUBIN,TOTAL 0.6 MG/DL (0.2-1.0)
[2022-07-14] MEDS ORDERED: FAMOTIDINE 20 MG TAB PO ONE (15:45)
[2022-07-14] MEDS ORDERED: HOME MED LIST COMPLETE! XX SCH (16:40)
[2022-07-14] MEDS ORDERED: SUCRALFATE 1 GM TAB PO ONE (17:05)
[2022-07-14] MEDS ORDERED: GI COCKTAIL 50ML BTL(HYOSCYAMINE/MAALOX/LIDOCAINE VISCOUS)(1:3:1) PO ONE (18:05)
[2022-07-14 18:50] LABS: INFLUENZA A AMPLIFICATION NEGATIVE (NEGATIVE); INFLUENZA B AMPLIFICATION NEGATIVE (NEGATIVE)
[2022-07-14] MEDS ORDERED: BACLOFEN 10 MG TAB PO PRN (18:50)
[2022-07-14] MEDS: MORPHINE 2 MG/ML 1ML VIAL IV PRN (20:13)
[2022-07-14] MEDS: atenoloL 50 MG TAB PO SCH (20:22)
[2022-07-14] MEDS: LR 1,000 ML IV SCH (20:22)
[2022-07-14] MEDS ORDERED: TAMSULOSIN 0.4 MG CAP PO SCH (21:00)
[2022-07-14] MEDS ORDERED: AMITRIPTYLINE 50 MG TAB PO SCH (21:00)
[2022-07-14] MEDS: SUCRALFATE SUSP 1GM/10ML UD PO SCH (21:32)
[2022-07-14] MEDS: OMEPRAZOLE 20MG CAP PO SCH (21:32)
[2022-07-14] MEDS ORDERED: hydrALAZINE 20MG/ML 1ML VIAL (J0360 PER 20MG) IV PRN (22:25)
[2022-07-15] MEDS ORDERED: MORPHINE 2 MG/ML 1ML VIAL IV ONE (01:15)
[2022-07-15 05:53] LABS: HEMOGLOBIN 13.3 g/dl (13.5-17.5); MEAN CORPUSCULAR HEMOGLOBIN 33.4 pg (27.0-33.0); MEAN CORPUSCULAR HGB CONC 34.1 g/dl (32.0-36.5); PLATELET COUNT, AUTOMATED 250 10^3/uL (150-450); RED BLOOD COUNT 3.98 10^6/uL (4.30-6.10); WHITE BLOOD COUNT 5.5 10^3/uL (4.0-10.0)
[2022-07-15 06:43] LABS: ALBUMIN 3.2 GM/DL (3.2-5.2); ALT/SGPT 25 U/L (12-78); BILIRUBIN,TOTAL 0.5 MG/DL (0.2-1.0); BLOOD UREA NITROGEN 6 MG/DL (7-18); CALCIUM LEVEL 8.7 MG/DL (8.8-10.2); CARBON DIOXIDE LEVEL 25 MEQ/L (21-32); CHLORIDE LEVEL 109 MEQ/L (98-107); CREATININE FOR GFR 0.78 MG/DL (0.70-1.30); GLOMERULAR FILTRATION RATE > 60.0 (>49); GLUCOSE, FASTING 106 MG/DL (70-100); POTASSIUM SERUM 3.8 MEQ/L (3.5-5.1); SODIUM LEVEL 139 MEQ/L (136-145); TOTAL PROTEIN 6.1 GM/DL (6.4-8.2)
[2022-07-15 08:50] VITALS: BP 140/81
[2022-07-15] MEDS ORDERED: atenoloL 50 MG TAB PO SCH (09:00)
[2022-07-15] MEDS ORDERED: FENOFIBRATE 145MG TABLET (TRICOR) PO SCH (09:00)
[2022-07-15] MEDS ORDERED: ENOXAPARIN 40MG/0.4ML SYRINGE (J1650 PER 10MG) SC SCH (09:00)
[2022-07-15 09:09] VITALS: BP 140/81
[2022-07-15] MEDS: LR 1,000 ML IV SCH (09:09)
[2022-07-15] MEDS: atenoloL 50 MG TAB PO SCH (09:09)
[2022-07-15] MEDS: OMEPRAZOLE 20MG CAP PO SCH (09:09)
[2022-07-15] MEDS: SUCRALFATE SUSP 1GM/10ML UD PO SCH ×2 (09:09→13:18)
[2022-07-15] MEDS: MORPHINE 2 MG/ML 1ML VIAL IV PRN (09:19)
[2022-07-15] MEDS ORDERED: OMEP40CA5 PO (13:28)
[2022-07-15] MEDS ORDERED: SUCR1TA PO (13:29)
[2022-07-15] MEDS: ONDANSETRON 4MG TAB PO PRN (13:45)
[2022-07-15] MEDS ORDERED: ONDA-83 PO (14:16)
[2022-07-15] MEDS ORDERED: ONDANSETRON 4MG 2ML VIAL IV ONE (14:30)
[2022-07-15] MEDS ORDERED: GI COCKTAIL 50ML BTL(HYOSCYAMINE/MAALOX/LIDOCAINE VISCOUS)(1:3:1) PO ONE (15:00)
[2022-07-16] MEDS ORDERED: ONDA-83 PO (09:32)
[2022-07-16] MEDS ORDERED: OMEP40CA5 PO (09:32)
[2022-07-16] MEDS ORDERED: SUCR1TAB56 PO (09:32)
== END 2022-07-15 15:09 | disposition home or self-care (01) ==
LOC: M ED 12:53 → M ED INP 18:47 → ENRESERV 07-15 08:07 → M MSPAV 07-15 08:45
PROVIDERS: ADMIT Internal Medicine; ATTEND Internal Medicine
DX: K27.9 Peptic ulcer, site unspecified, unspecified as acute or chronic, without hemorrhage or perforation (principal); R10.9 Unspecified abdominal pain; M47.12 Other spondylosis with myelopathy, cervical region; I10 Essential (primary) hypertension; E78.5 Hyperlipidemia, unspecified; Z79.899 Other long term (current) drug therapy; Z88.8 Allergy status to other drugs, medicaments and biological substances
CPT/HCPCS: 36415; 71045; 74177; 80047; 80053; 80076; 82550; 82553; 83605; 83690; 84484; 85025; 85027; 85610; 87631; 87635; 93005; 93041; 94760; 96361; 96372; 96374; 96375; 96376; 99285; G0378; J0360; J1650; J2270; Q9967

== ENCOUNTER 2022-07-16 04:41 | Observation (INO) | payer MEDICARE, MEDICAID ==
[~2022-07-16] VITALS: Ht 177.8 cm; Wt 86.4 kg
[~2022-07-16 04:41] MED LIST changes: +ONDA-83 PO; +SUCR1TA PO
[2022-07-16] MEDS ORDERED: ONDANSETRON 4MG 2ML VIAL IV ONE (05:10)
[2022-07-16] MEDS: MORPHINE 4 MG/ML 1ML VIAL/SYRINGE IV PRN ×2 (05:13→05:49)
[2022-07-16 05:42] LABS: BASO % 0.2 % (0.0-1.0); EOS # 0.1 10^3/uL (0.0-0.5); EOS % 1.7 % (0.0-3.0); HEMATOCRIT 44.4 % (42.0-52.0); HEMOGLOBIN 14.7 g/dl (13.5-17.5); LYMPH # 1.8 10^3/uL (1.5-5.0); LYMPH % 21.6 % (24.0-44.0); MEAN CORPUSCULAR HEMOGLOBIN 32.3 pg (27.0-33.0); MEAN CORPUSCULAR HGB CONC 33.1 g/dl (32.0-36.5); MEAN CORPUSCULAR VOLUME 97.6 fl (80.0-96.0); MONO # 0.5 10^3/uL (0.0-0.8); MONO % 6.3 % (2.0-8.0); NEUTROPHILS # 5.9 10^3/uL (1.5-8.5); NEUTROPHILS % 69.8 % (36.0-66.0); PLATELET COUNT, AUTOMATED 283 10^3/uL (150-450); RED BLOOD COUNT 4.55 10^6/uL (4.30-6.10); WHITE BLOOD COUNT 8.4 10^3/uL (4.0-10.0)
[2022-07-16 05:52] LABS: INR 1.03; PROTHROMBIN TIME 13.9 SECONDS (12.7-14.5)
[2022-07-16 06:00] LABS: CK-MB VALUE MASS < 1.0 NG/ML (<3.6); CPK CREATINE PHOSPHOKINASE 49 U/L (39-308); MB/CK RELATIVE INDEX 2.04 (< OR =4)
[2022-07-16 06:05] LABS: ALBUMIN 3.8 GM/DL (3.2-5.2); ALT/SGPT 29 U/L (12-78); AMYLASE 57 U/L (25-115); BILIRUBIN,DIRECT 0.2 MG/DL (0.0-0.2); BILIRUBIN,TOTAL 0.6 MG/DL (0.2-1.0); BLOOD UREA NITROGEN 5 MG/DL (7-18); CARBON DIOXIDE LEVEL 24 MEQ/L (21-32); CHLORIDE LEVEL 106 MEQ/L (98-107); CREATININE FOR GFR 0.91 MG/DL (0.70-1.30); GLOMERULAR FILTRATION RATE > 60.0 (>49); GLUCOSE, FASTING 107 MG/DL (70-100); LIPASE 208 U/L (73-393); RSV AMPLIFICATION NEGATIVE (NEGATIVE); SODIUM LEVEL 137 MEQ/L (136-145); TOTAL PROTEIN 7.4 GM/DL (6.4-8.2)
[2022-07-16] MEDS ORDERED: GI COCKTAIL 50ML BTL(HYOSCYAMINE/MAALOX/LIDOCAINE VISCOUS)(1:3:1) PO ONE (06:45)
[2022-07-16] MEDS ORDERED: FAMOTIDINE 20MG/2ML VIAL IVP ONE (06:45)
[2022-07-16] MEDS ORDERED: NS 1,000 ML IV ONE (06:45)
[2022-07-16] MEDS ORDERED: SUCRALFATE 1 GM TAB PO ONE (06:45)
[2022-07-16] MEDS ORDERED: ONDANSETRON 4MG 2ML VIAL IV PRN (08:45)
[2022-07-16] MEDS ORDERED: ISOVUE-370 76% 100ML VIAL As Ordered ONE (09:02)
[2022-07-16] MEDS ORDERED: ONDA-83 PO (09:32)
[2022-07-16] MEDS ORDERED: SUCR1TAB56 PO (09:32)
[2022-07-16] MEDS ORDERED: OMEP40CA5 PO (09:32)
[2022-07-16] MEDS ORDERED: HOME MED LIST COMPLETE! XX SCH (09:35)
[2022-07-16] MEDS: LR 1,000 ML IV SCH ×3 (10:01→21:10)
[2022-07-16] MEDS: MORPHINE 2 MG/ML 1ML VIAL IV PRN ×3 (10:01→19:55)
[2022-07-16] MEDS: OMEPRAZOLE 20MG CAP PO SCH ×2 (10:01→19:54)
[2022-07-16 10:38] VITALS: BP 155/82
[2022-07-16] MEDS ORDERED: GI COCKTAIL 50ML BTL(HYOSCYAMINE/MAALOX/LIDOCAINE VISCOUS)(1:3:1) PO PRN (11:35)
[2022-07-16] MEDS: SUCRALFATE SUSP 1GM/10ML UD PO SCH ×3 (11:56→19:54)
[2022-07-16] MEDS ORDERED: MORPHINE 2 MG/ML 1ML VIAL IV ONE (12:05)
[2022-07-16 14:00] VITALS: BP 160/86
[2022-07-16] MEDS ORDERED: BACLOFEN 10 MG TAB PO PRN (16:30)
[2022-07-16] MEDS ORDERED: AMITRIPTYLINE 50 MG TAB PO PRN (16:30)
[2022-07-16] MEDS: atenoloL 50 MG TAB PO SCH (17:04)
[2022-07-16 17:07] LABS: ERYTHROCYTE SEDIMENTATION RATE 15 mm/hr (0-20)
[2022-07-16] MEDS: TAMSULOSIN 0.4 MG CAP PO SCH (19:54)
[2022-07-16] MEDS ORDERED: RAMELTEON 8 MG TAB (ROZEREM) PO ONE (21:00)
[2022-07-16 22:06] VITALS: BP 161/87
[2022-07-17] MEDS: MORPHINE 2 MG/ML 1ML VIAL IV PRN ×3 (00:36→09:09)
[2022-07-17 06:34] LABS: HEMATOCRIT 38.5 % (42.0-52.0); MEAN CORPUSCULAR HEMOGLOBIN 33.1 pg (27.0-33.0); MEAN CORPUSCULAR HGB CONC 33.8 g/dl (32.0-36.5); PLATELET COUNT, AUTOMATED 223 10^3/uL (150-450); RED BLOOD COUNT 3.93 10^6/uL (4.30-6.10); WHITE BLOOD COUNT 7.4 10^3/uL (4.0-10.0)
[2022-07-17 06:53] VITALS: BP 154/84
[2022-07-17 06:57] LABS: BLOOD UREA NITROGEN 8 MG/DL (7-18); CALCIUM LEVEL 8.5 MG/DL (8.8-10.2); CARBON DIOXIDE LEVEL 24 MEQ/L (21-32); CHLORIDE LEVEL 106 MEQ/L (98-107); CREATININE FOR GFR 0.79 MG/DL (0.70-1.30); GLOMERULAR FILTRATION RATE > 60.0 (>49); GLUCOSE, FASTING 78 MG/DL (70-100); POTASSIUM SERUM 3.9 MEQ/L (3.5-5.1); SODIUM LEVEL 136 MEQ/L (136-145)
[2022-07-17] MEDS ORDERED: FLUBLOK(EGG FREE)(QUAD)INFLUENZA VACC 0.5ML SYRINGE 18YRS & OLDER IM.IMMUN ONE (09:00)
[2022-07-17] MEDS: FENOFIBRATE 145MG TABLET (TRICOR) PO SCH (09:07)
[2022-07-17] MEDS: OMEPRAZOLE 20MG CAP PO SCH ×2 (09:07→20:16)
[2022-07-17] MEDS: SUCRALFATE SUSP 1GM/10ML UD PO SCH ×4 (09:07→20:15)
[2022-07-17] MEDS: atenoloL 50 MG TAB PO SCH (09:10)
[2022-07-17] MEDS ORDERED: E-Z-PAQUE 96% w/w SUSP 176GM BTL As Ordered ONE (11:47)
[2022-07-17] MEDS ORDERED: E-Z-GAS II EFFERVESCENT PACKET (SODIUM BICARB./CITRIC ACID/SIMETHICONE) As Ordered ONE (11:47)
[2022-07-17] MEDS ORDERED: E-Z-HD 98% w/w 340GM SUSP BTL As Ordered ONE (11:48)
[2022-07-17 14:00] VITALS: BP 160/90
[2022-07-17] MEDS: LR 1,000 ML IV SCH (16:06)
[2022-07-17] MEDS: TAMSULOSIN 0.4 MG CAP PO SCH (20:15)
[2022-07-17 22:00] VITALS: BP 160/83
[2022-07-18] MEDS ORDERED: MIRALAX *UNIT DOSE* 17GM PACKET PO ONE
[2022-07-18 05:17] VITALS: BP 157/82
[2022-07-18] MEDS ORDERED: NS 1,000 ML IV ONE (06:00)
[2022-07-18 06:02] LABS: HEMATOCRIT 38.9 % (42.0-52.0); HEMOGLOBIN 13.2 g/dl (13.5-17.5); MEAN CORPUSCULAR HEMOGLOBIN 32.6 pg (27.0-33.0); MEAN CORPUSCULAR HGB CONC 33.9 g/dl (32.0-36.5); PLATELET COUNT, AUTOMATED 247 10^3/uL (150-450); RED BLOOD COUNT 4.05 10^6/uL (4.30-6.10); WHITE BLOOD COUNT 5.2 10^3/uL (4.0-10.0)
[2022-07-18 06:39] LABS: BLOOD UREA NITROGEN 7 MG/DL (7-18); CALCIUM LEVEL 8.8 MG/DL (8.8-10.2); CARBON DIOXIDE LEVEL 27 MEQ/L (21-32); CHLORIDE LEVEL 107 MEQ/L (98-107); CREATININE FOR GFR 0.83 MG/DL (0.70-1.30); GLOMERULAR FILTRATION RATE > 60.0 (>49); GLUCOSE, FASTING 103 MG/DL (70-100); POTASSIUM SERUM 3.7 MEQ/L (3.5-5.1); SODIUM LEVEL 139 MEQ/L (136-145)
[2022-07-18] MEDS: FENOFIBRATE 145MG TABLET (TRICOR) PO SCH (08:49)
[2022-07-18] MEDS: OMEPRAZOLE 20MG CAP PO SCH (08:49)
[2022-07-18] MEDS: SUCRALFATE SUSP 1GM/10ML UD PO SCH ×3 (08:49→16:27)
[2022-07-18 08:51] VITALS: BP 146/81
[2022-07-18] MEDS: atenoloL 50 MG TAB PO SCH (08:51)
[2022-07-18 14:00] VITALS: BP 152/62
[2022-07-18] MEDS ORDERED: fentaNYL 100 MCG/2 ML INJECTION As Ordered ONE (15:32)
[2022-07-18] MEDS ORDERED: LIDOCAINE 2% 100MG/5ML SDV (FOR ANES.) As Ordered ONE (15:33)
[2022-07-18] MEDS ORDERED: propofoL 200 MG/20 ML VIAL As Ordered ONE ×2 (15:33→15:41)
[2022-07-18 15:54] VITALS: BP 147/84
== END 2022-07-18 17:34 | disposition home or self-care (01) ==
LOC: M ED 04:41 → M ED INP 08:40 → ENRESERV 10:05 → M MSPAV 10:36
PROVIDERS: ADMIT Internal Medicine; ATTEND Internal Medicine
DX: K31.9 Disease of stomach and duodenum, unspecified (principal); R93.3 Abnormal findings on diagnostic imaging of other parts of digestive tract; R10.13 Epigastric pain; I10 Essential (primary) hypertension; E78.5 Hyperlipidemia, unspecified; M50.03 Cervical disc disorder with myelopathy, cervicothoracic region; Z79.899 Other long term (current) drug therapy; Z88.8 Allergy status to other drugs, medicaments and biological substances
CPT/HCPCS: 36415; 43239; 74177; 74240; 80048; 80076; 82150; 82550; 82553; 83690; 84145; 84484; 85025; 85027; 85610; 85652; 86140; 87631; 88305; 93005; 93041; 96361; 96374; 96375; 96376; 99285; G0378; J2270; J2405; J3010; Q9967

== ENCOUNTER → 2023-03-01 | Outpatient (CLI) | payer MEDICARE, MEDICAID ==
[~2023-03-01] MED LIST changes: -LOSA100T45 PO; +LOSA100T46 PO; +PROHANCE 279.3MG/ML 15ML VIAL As Ordered ONE; +PROHANCE 279.3MG/ML 5ML VIAL As Ordered ONE; +SUCR1TAB56 PO
== END ==
LOC: M RAD 10:30
PROVIDERS: ATTEND Internal Medicine Gastroenterology
DX: D37.8 Neoplasm of uncertain behavior of other specified digestive organs (principal); K86.9 Disease of pancreas, unspecified; R93.3 Abnormal findings on diagnostic imaging of other parts of digestive tract; K44.9 Diaphragmatic hernia without obstruction or gangrene; K76.0 Fatty (change of) liver, not elsewhere classified
CPT/HCPCS: 74183; A9576

== ENCOUNTER 2023-03-30 08:30 | Day surgery (SDC) | payer MEDICARE, MEDICAID ==
[~2023-03-30] VITALS: Ht 180.3 cm; Wt 84.5 kg
[~2023-03-30 08:30] MED LIST changes: +NS 1,000 ML IV ONE; -PROHANCE 279.3MG/ML 15ML VIAL As Ordered ONE; -PROHANCE 279.3MG/ML 5ML VIAL As Ordered ONE
[2023-03-30] MEDS ORDERED: propofoL 200 MG/20 ML VIAL As Ordered ONE (08:35)
[2023-03-30] MEDS ORDERED: LIDOCAINE 2% 100MG/5ML SDV (FOR ANES.) As Ordered ONE (08:35)
[2023-03-30] MEDS ORDERED: GLYCOPYRROLATE INJ 0.2 MG/ML 2 ML VIAL As Ordered ONE (09:51)
[2023-03-30] MEDS ORDERED: GLUCAGON INJ 1MG VIAL As Ordered ONE (09:51)
[2023-03-30] MEDS ORDERED: ONDANSETRON 4MG 2ML VIAL As Ordered ONE (09:56)
[2023-03-30 10:01] VITALS: TEMP 96.7
[2023-03-30 10:18] VITALS: BP 158/98; O2SAT 98
== END 2023-03-30 10:31 | disposition home or self-care (01) ==
LOC: M OPP 08:30
PROVIDERS: ATTEND Internal Medicine Gastroenterology
DX: Z12.11 Encounter for screening for malignant neoplasm of colon (principal); Z86.010 Personal history of colon polyps; D12.5 Benign neoplasm of sigmoid colon; C20 Malignant neoplasm of rectum; K57.30 Diverticulosis of large intestine without perforation or abscess without bleeding; K64.8 Other hemorrhoids; Z79.83 Long term (current) use of bisphosphonates; Z79.811 Long term (current) use of aromatase inhibitors; Z79.891 Long term (current) use of opiate analgesic; Z79.899 Other long term (current) drug therapy
CPT/HCPCS: 45385; 88305; J1610; J2405

== ENCOUNTER 2023-04-03 11:26 | Day surgery (SDC) | payer MEDICARE, MEDICAID ==
[~2023-04-03] VITALS: Ht 177.8 cm; Wt 85.1 kg
[~2023-04-03 11:26] MED LIST changes: -NS 1,000 ML IV ONE
[2023-04-03] MEDS ORDERED: propofoL 200 MG/20 ML VIAL As Ordered ONE ×3 (13:33→14:00)
[2023-04-03 14:06] VITALS: TEMP 98
[2023-04-03 14:32] VITALS: BP 150/98; O2SAT 99
== END 2023-04-03 14:37 | disposition home or self-care (01) ==
LOC: M SDC 11:26
PROVIDERS: ATTEND Internal Medicine Gastroenterology
DX: C20 Malignant neoplasm of rectum (principal); Z98.890 Other specified postprocedural states; Z88.8 Allergy status to other drugs, medicaments and biological substances; I10 Essential (primary) hypertension; Z79.899 Other long term (current) drug therapy

== ENCOUNTER → 2023-05-30 | Outpatient (CLI) | payer MEDICARE, MEDICAID ==
[~2023-05-30] MED LIST changes: -AMIT25TA17 PO; +AMIT25TA19 PO
[2023-05-30 10:52] LABS: BLOOD UREA NITROGEN 10 MG/DL (9-23); CREATININE FOR GFR 0.72 MG/DL (0.70-1.30); GLOMERULAR FILTRATION RATE > 60.0 (>49)
== END ==
LOC: M LAB 09:54
PROVIDERS: ATTEND Physician Assistant Medical
DX: R93.3 Abnormal findings on diagnostic imaging of other parts of digestive tract (principal)

== ENCOUNTER → 2023-06-05 | Outpatient (CLI) | payer MEDICARE, MEDICAID ==
[~2023-06-05] MED LIST changes: +GASTROGRAFIN SOLUTION 30ML As Ordered ONE; +ISOVUE-370 76% 100ML VIAL As Ordered ONE
== END ==
LOC: M RAD 13:02
PROVIDERS: ATTEND Colon & Rectal Surgery
DX: C20 Malignant neoplasm of rectum (principal); Z90.49 Acquired absence of other specified parts of digestive tract; R93.89 Abnormal findings on diagnostic imaging of other specified body structures; Z87.81 Personal history of (healed) traumatic fracture
CPT/HCPCS: 71260; 74177; Q9963; Q9967

== ENCOUNTER → 2024-04-14 | Outpatient (CLI) | payer MEDICARE, MEDICAID ==
[~2024-04-14] MED LIST changes: -GASTROGRAFIN SOLUTION 30ML As Ordered ONE; -ISOVUE-370 76% 100ML VIAL As Ordered ONE
== END ==
LOC: M PLAIMG 10:56
PROVIDERS: ATTEND Nurse Practitioner Family
DX: M48.02 Spinal stenosis, cervical region (principal); M85.88 Other specified disorders of bone density and structure, other site; L97.922 Non-pressure chronic ulcer of unspecified part of left lower leg with fat layer exposed; M51.37 Other intervertebral disc degeneration, lumbosacral region

== ENCOUNTER → 2024-04-14 | Outpatient (CLI) | payer MEDICARE, MEDICAID | LOC: M PLAIMG 11:03 | PROVIDERS: ATTEND Surgery | DX: L97.922 Non-pressure chronic ulcer of unspecified part of left lower leg with fat layer exposed (principal) ==

== ENCOUNTER → 2024-04-14 | Outpatient (CLI) | payer MEDICARE, MEDICAID | LOC: M PLAIMG 11:01 | PROVIDERS: ATTEND Nurse Practitioner Family | DX: M48.02 Spinal stenosis, cervical region (principal); M85.88 Other specified disorders of bone density and structure, other site ==

== ENCOUNTER → 2024-04-30 | Outpatient (CLI) | payer MEDICARE, MEDICAID ==
[2024-04-30 12:59] LABS: HEMATOCRIT 35.9 % (42.0-52.0); HEMOGLOBIN 12.1 g/dl (13.5-17.5); MEAN CORPUSCULAR HEMOGLOBIN 34.1 pg (27.0-33.0); MEAN CORPUSCULAR HGB CONC 33.7 g/dl (32.0-36.5); MEAN CORPUSCULAR VOLUME 101.1 fl (80.0-96.0); PLATELET COUNT, AUTOMATED 231 10^3/uL (150-450); RED BLOOD COUNT 3.55 10^6/uL (4.30-6.10); WHITE BLOOD COUNT 8.8 10^3/uL (4.0-10.0)
== END ==
LOC: M LRY 09:36
PROVIDERS: ATTEND Physician Assistant Medical
DX: K62.5 Hemorrhage of anus and rectum (principal)

== ENCOUNTER 2024-05-16 09:30 | Day surgery (SDC) | payer MEDICARE, MEDICAID ==
[~2024-05-16] VITALS: Ht 177.8 cm; Wt 87.3 kg
[2024-05-16] MEDS: NS 1,000 ML IV ONE (10:42)
[2024-05-16] MEDS ORDERED: propofoL 200 MG/20 ML VIAL As Ordered ONE (11:33)
[2024-05-16] MEDS ORDERED: LIDOCAINE 2% 100MG/5ML SDV (FOR ANES.) As Ordered ONE (11:34)
[2024-05-16] MEDS ORDERED: ESMOLOL INJ 100MG/10ML VIAL As Ordered ONE (12:00)
[2024-05-16] MEDS ORDERED: LABETALOL 100MG/20ML VIAL As Ordered ONE (12:10)
[2024-05-16] MEDS ORDERED: fentaNYL 100 MCG/2 ML INJECTION As Ordered ONE (12:12)
[2024-05-16 12:48] VITALS: BP 168/79; O2SAT 98
== END 2024-05-16 13:07 | disposition home or self-care (01) ==
LOC: M OPP 09:30
PROVIDERS: ATTEND Internal Medicine Gastroenterology
DX: Z08 Encounter for follow-up examination after completed treatment for malignant neoplasm (principal); K63.5 Polyp of colon; Z85.038 Personal history of other malignant neoplasm of large intestine; K31.89 Other diseases of stomach and duodenum; R12 Heartburn; Z79.891 Long term (current) use of opiate analgesic; Z79.899 Other long term (current) drug therapy; Z88.8 Allergy status to other drugs, medicaments and biological substances; I10 Essential (primary) hypertension; E78.00 Pure hypercholesterolemia, unspecified; N40.0 Benign prostatic hyperplasia without lower urinary tract symptoms; Z87.19 Personal history of other diseases of the digestive system; Z90.49 Acquired absence of other specified parts of digestive tract
CPT/HCPCS: 43235; 45380; 88305; J1805; J1920; J3010

== ENCOUNTER → 2024-05-19 | Outpatient (CLI) | payer MEDICARE, MEDICAID | LOC: M RAD 08:33 | PROVIDERS: ATTEND Neurological Surgery | DX: M47.894 Other spondylosis, thoracic region (principal); M79.18 Myalgia, other site; M41.9 Scoliosis, unspecified ==

== ENCOUNTER → 2024-06-06 | Outpatient (CLI) | payer MEDICARE, MEDICAID ==
[~2024-06-06] MED LIST changes: +PROHANCE 279.3MG/ML 15ML VIAL ONE; +PROHANCE 279.3MG/ML 5ML VIAL ONE
== END ==
LOC: M PLAIMG 08:09
PROVIDERS: ATTEND Physician Assistant Medical
DX: R93.3 Abnormal findings on diagnostic imaging of other parts of digestive tract (principal); Z90.49 Acquired absence of other specified parts of digestive tract; K76.0 Fatty (change of) liver, not elsewhere classified
CPT/HCPCS: 74183; A9576

== ENCOUNTER → 2024-08-06 | Outpatient (CLI) | payer MEDICAID, MEDICARE ==
[~2024-08-06] MED LIST changes: +ISOVUE-300 61% 100ML VIAL As Ordered ONE; +LIDOCAINE 1% MDV 20ML VIAL As Ordered ONE; -PROHANCE 279.3MG/ML 15ML VIAL ONE; +PROHANCE 279.3MG/ML 5ML VIAL As Ordered ONE; -PROHANCE 279.3MG/ML 5ML VIAL ONE
== END ==
LOC: M RAD 08:35
PROVIDERS: ATTEND Physician Assistant
DX: S46.011A Strain of muscle(s) and tendon(s) of the rotator cuff of right shoulder, initial encounter (principal); M75.01 Adhesive capsulitis of right shoulder; X58.XXXA Exposure to other specified factors, initial encounter; Y92.9 Unspecified place or not applicable
CPT/HCPCS: 23350; 73223; 77002; A9576; Q9967

== ENCOUNTER → 2024-09-08 | Outpatient (CLI) | payer MEDICARE ==
[~2024-09-08] MED LIST changes: -ISOVUE-300 61% 100ML VIAL As Ordered ONE; -LIDOCAINE 1% MDV 20ML VIAL As Ordered ONE; -PROHANCE 279.3MG/ML 5ML VIAL As Ordered ONE
[2024-09-08 12:28] LABS: LIPASE 30 U/L (12-53)
[2024-09-08 12:30] LABS: ALBUMIN 3.8 G/DL (3.2-5.2); ALKALINE PHOSPHATASE 83 U/L (40-129); ALT/SGPT 26 U/L (7.0-40); AST/SGOT 29 U/L (<34); BILIRUBIN,TOTAL 0.5 MG/DL (0.3-1.2); BLOOD UREA NITROGEN 7 MG/DL (9-23); CALCIUM LEVEL 9.2 MG/DL (8.3-10.6); CARBON DIOXIDE LEVEL 29 MMOL/L (20-31); CHLORIDE LEVEL 103 MMOL/L (98-107); GLOMERULAR FILTRATION RATE > 60.0 (>49); GLUCOSE, FASTING 120 MG/DL (74-106); POTASSIUM SERUM 3.9 MMOL/L (3.5-5.1); SODIUM LEVEL 138 MMOL/L (136-145)
[2024-09-08 12:31] LABS: BASO % 0.6 % (0.0-1.0); EOS % 0.8 % (0.0-3.0); HEMATOCRIT 40.2 % (42.0-52.0); HEMOGLOBIN 12.6 g/dl (13.5-17.5); LYMPH # 1.8 10^3/uL (1.5-5.0); MEAN CORPUSCULAR HEMOGLOBIN 27.8 pg (27.0-33.0); MEAN CORPUSCULAR HGB CONC 31.3 g/dl (32.0-36.5); MEAN CORPUSCULAR VOLUME 88.5 fl (80.0-96.0); MONO # 0.5 10^3/uL (0.0-0.8); MONO % 9.8 % (2.0-8.0); NEUTROPHILS # 2.8 10^3/uL (1.5-8.5); NEUTROPHILS % 54.4 % (36.0-66.0); PLATELET COUNT, AUTOMATED 296 10^3/uL (150-450); RED BLOOD COUNT 4.54 10^6/uL (4.30-6.10); WHITE BLOOD COUNT 5.2 10^3/uL (4.0-10.0)
== END ==
LOC: M WUC 09:38
PROVIDERS: ATTEND Internal Medicine
DX: K86.1 Other chronic pancreatitis (principal)

== ENCOUNTER → 2025-04-29 | Outpatient (CLI) | payer MEDICARE, MEDICAID ==
[~2025-04-29] MED LIST changes: -FLOM0.4C39 PO; +TAMS-18 PO
== END ==
LOC: M WUC 10:14
PROVIDERS: ATTEND Internal Medicine
DX: S20.212A Contusion of left front wall of thorax, initial encounter (principal); Y93.9 Activity, unspecified; Y92.9 Unspecified place or not applicable

== ENCOUNTER 2025-07-09 08:13 | Day surgery (SDC) | payer MEDICARE, MEDICAID ==
[~2025-07-09] VITALS: Ht 177.8 cm; Wt 86.5 kg
[2025-07-09] MEDS ORDERED: METOPROLOL 5 MG/5 ML VIAL As Ordered ONE (09:19)
[2025-07-09 09:42] VITALS: BP 160/90; O2SAT 94
== END 2025-07-09 09:49 | disposition home or self-care (01) ==
LOC: M OPP 08:13
PROVIDERS: ATTEND Internal Medicine Gastroenterology
DX: Z08 Encounter for follow-up examination after completed treatment for malignant neoplasm (principal); Z85.048 Personal history of other malignant neoplasm of rectum, rectosigmoid junction, and anus; Z88.8 Allergy status to other drugs, medicaments and biological substances; Z79.891 Long term (current) use of opiate analgesic; Z79.899 Other long term (current) drug therapy
CPT/HCPCS: 45378; J0616